=== PATIENT | female | born 1990 ===

== ENCOUNTER 2020-03-14 10:47 | Inpatient (IN) | payer OTHER, SELFPAY ==
[2020-03-14 10:59] VITALS: BP 136/83; PULSE 114; RESP 24; O2SAT 99; BMI 42.9
--- NOTE | 2020-03-14 11:01 | ED.URI ---
HPI - URI/Sore Throat General Chief Complaint: General Medical Stated Complaint: difficulty breathing, chest pain Time Seen by Provider: 03/14/20 11:01 Source: patient Mode of arrival: ambulatory Limitations: no limitations History of Present Illness HPI Narrative: 29 yo female with hx of CMT comes in with productive blood tinged sputum, cough, increased dyspnea, fevers at home - has trach and hx of CMT, has PPM hypoxia and always on O2 - felt all of her issues are related to CMT sees a receiving associate, also has chronic tachycardia MD elicited complaint: fever, cough and other (dyspnea) Pertinent past history: other (bronchitis, tracheitis (trach since age 16) ) Onset (ago): day(s) (2) Consistency: constant Severity: moderate Able to tolerate fluids by mouth: Yes Exacerbating factors: exertion Relieving factors: nothing Associated symptoms: fever, chills, cough and shortness of breath Related Data Allergies Allergy/AdvReac Type Severity Reaction Status Date / Time prednisone [PREDNISONE] Allergy Unknown UNKNOWN Unverified 01/18/20 19:46 Review of Systems Review of Systems: Constitutional : pos Fever, pos Chills ENT/Mouth : No sore throat, No Rhinorrhea, No Swallowing Difficulty Eyes: No Eye Pain, No Swelling, No Redness Cardiovascular : No Chest Pain, positive SOB, No Orthopnea, no Edema Respiratory : pos Cough, pos Sputum, No Wheezing, positive dyspnea Gastrointestinal : No Nausea, No Vomiting, No Diarrhea, No abdominal Pain, No Hematochezia, No Melena Genitourinary : No Dysuria, No Urinary Frequency, No Hematuria Musculoskeletal : No joint pain, No Myalgias Skin : No Skin Lesions, No rash Neuro : No Weakness, No Numbness, No Dizziness, No Headache Psych : No Anxiety/Panic, No Depression Heme/Lymph: No Bruising, No Lymphadenopathy Endocrine : No Polyuria, No Polydipsia All other systems reviewed and are negative [facility] Past Medical History Attestation statement: The following information was validated with the patient. 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 Oriented X3. No acute distress. Eyes: Pupils equal, round and reactive to light. ENT: Pharynx normal. Tach in place Neck: Normal inspection. Neck supple. CVS: tachycardic heart rate and rhythm. Pulses normal. Respiratory: No respiratory distress. Breath sounds mild rhonchi upper, L base diminished Abdomen: Soft and nontender. Skin: Skin warm and dry. Normal skin color. Normal skin turgor. Extremities: No lower extremity edema. No calf ttp has orthotic devices in place Neuro: Oriented X 3. No motor deficit. No sensory deficit. Course Course Course Narrative: unfortunately the patient is COVID positive, she has increased her O2 to 4L NC I have notified her News Intern about findings - she is obviously high risk for deteriorating given rapidity of her illness, increased O2 demands and her risk factors will admit for observation MDM - URI/Sore Throat MDM Narrative Medical decision making narrative: 29 yo female with CMT who has a trach, O2 dependent, hx of bronchitis and tracheitis here with fevers, increased dyspnea, blood tinged sputum - will obtain labs, cultures, ddimer, CTA vs CXR, SARS/COVID/flu swab dispo per results and findings infectious vs PE workup (has has negative PE workup in the past) Lab Data Result diagrams: 03/14/20 11:28 03/14/20 11:28 Labs: Lab Results 03/14/20 03/14/20 03/14/20 Range/Units 11:28 11: 11:28 WBC 2.8 L (4.8-10.8) X10*3/uL RBC 4.46 (4.20-5.50) X10*6/uL Hgb 11.9 L (12.0-16.0) g/dl Hct 37.6 (37-47) % MCV 84.3 (80-98) fL MCH 26.7 L (27.0-33.0) pg MCHC 31.6 (31.0-35.0) g/dl RDW 16.8 H (11.0-16.0) % Plt Count 152 L (160-400) X10*3/uL MPV 11.0 (9.4-12.3) fL Immature Gran % (Auto) 0.0 (0.0-0.4) % Neut % (Auto) 68.9 (45-73) % Lymph % (Auto) 18.8 L (20-40) % Daniels % (Auto) 11.9 H (2-11) % Eos % (Auto) 0.0 (0-4) % Baso % (Auto) 0.4 (0-2) % Lymph # (Auto) 0.5 L (1.2-4.9) X10*3/uL Daniels # (Auto) 0.3 (0.1-1.2) X10*3/uL Eos # (Auto) 0.0 (0.0-0.4) X10*3/uL Baso # (Auto) 0.0 (0.0-0.2) X10*3/uL Abs Immat Gran (auto) 0.00 (0.00-0.03) X10*3/uL Absolute Neuts (auto) 1.9 L (2.0-8.3) X10*3/uL Absolute Nucleated RBC 0.000 (0.0-0.012) X10*3/uL Nucleated RBC % (auto) 0.0 (0.0-0.2) /100WBC Smear Tech's Comments VERIFIED D-Dimer 289 NG/ML Sodium 136 (135-145) mmol/L Potassium 3.8 (3.3-5.1) mmol/l Chloride 101 (96-108) mmol/L Carbon Dioxide 30 H (22-29) mmol/L Anion Gap 9 L (12-20) BUN 7 L (9-16) mg/dL Creatinine 0.54 (0.5-1.4) mg/dL Estim Creat Clear Calc 191.4 Estimated GFR > 60 Random Glucose 121 H (60-115) mg/dL Lactic Acid (0.5-2.0) mmol/L Calcium 8.4 (8.4-10.2) mg/dL Magnesium 1.5 L (1.6-2.6) mg/dL Total Bilirubin 0.2 (0.0-1.0) mg/dL Direct Bilirubin < 0.2 (0.0-0.5) mg/dL AST 25 (5-31) U/L ALT 18 (0-31) U/L Alkaline Phosphatase 72 (39-117) U/L Lactate Dehydrogenase 171 (122-220) U/L Troponin I High Sens (<3.5-17.0) ng/L Total Protein 7.1 (6.5-8.0) g/dL Albumin 4.0 (3.5-5.0) g/dL Coronavirus (PCR) (Negative) Influenza Type A (PCR) (Negative) Influenza Type B (PCR) (Negative) RSV RNA Qual (PCR) (Negative) 03/14/20 03/14/20 03/14/20 Range/Units 11:28 11:28 11:28 WBC (4.8-10.8) X10*3/uL RBC (4.20-5.50) X10*6/uL Hgb (12.0-16.0) g/dl Hct (37-47) % MCV (80-98) fL MCH (27.0-33.0) pg MCHC (31.0-35.0) g/dl RDW (11.0-16.0) % Plt Count (160-400) X10*3/uL MPV (9.4-12.3) fL Immature Gran % (Auto) (0.0-0.4) % Neut % (Auto) (45-73) % Lymph % (Auto) (20-40) % Daniels % (Auto) (2-11) % Eos % (Auto) (0-4) % Baso % (Auto) (0-2) % Lymph # (Auto) (1.2-4.9) X10*3/uL Daniels # (Auto) (0.1-1.2) X10*3/uL Eos # (Auto) (0.0-0.4) X10*3/uL Baso # (Auto) (0.0-0.2) X10*3/uL Abs Immat Gran (auto) (0.00-0.03) X10*3/uL Absolute Neuts (auto) (2.0-8.3) X10*3/uL Absolute Nucleated RBC (0.0-0.012) X10*3/uL Nucleated RBC % (auto) (0.0-0.2) /100WBC Smear Tech's Comments D-Dimer NG/ML Sodium (135-145) mmol/L Potassium (3.3-5.1) mmol/l Chloride (96-108) mmol/L Carbon Dioxide (22-29) mmol/L Anion Gap (12-20) BUN (9-16) mg/dL Creatinine (0.5-1.4) mg/dL Estim Creat Clear Calc Estimated GFR Random Glucose (60-115) mg/dL Lactic Acid 0.7 (0.5-2.0) mmol/L Calcium (8.4-10.2) mg/dL Magnesium (1.6-2.6) mg/dL Total Bilirubin (0.0-1.0) mg/dL Direct Bilirubin (0.0-0.5) mg/dL AST (5-31) U/L ALT (0-31) U/L Alkaline Phosphatase (39-117) U/L Lactate Dehydrogenase (122-220) U/L Troponin I High Sens < 3.5 (<3.5-17.0) ng/L Total Protein (6.5-8.0) g/dL Albumin (3.5-5.0) g/dL Coronavirus (PCR) POSITIVE A (Negative) Influenza Type A (PCR) NEGATIVE (Negative) Influenza Type B (PCR) NEGATIVE (Negative) RSV RNA Qual (PCR) NEGATIVE (Negative) ECG Data Attestation: I personally reviewed and interpreted this ECG as follows: ECG interpretation date: 03/14/20 ECG interpretation time: 11:21 Interpretation: Rate: 111 Rhythm: sinus tachycardia Ogden:normal Normal P waves. Normal MEERA. Normal QRS complex. ST T wave : nonspecific qTC: normal prior studies: no acute ischemia The study has been interpreted contemporaneously by me. . Discharge Plan Discharge Clinical Impression: COVID-19, Pneumonia, viral Patient Disposition: Admitted As Inpatient
--- NOTE | 2020-03-14 11:09 | ECG_ITS ---
Test Reason : SOB Blood Pressure : / mmHG Vent. Rate : 113 BPM Atrial Rate : 113 BPM P-R Int : 148 ms QRS Dur : 100 ms QT Int : 328 ms P-R-T Axes : 031 007 -11 degrees QTc Int : 449 ms Sinus tachycardia Nonspecific T wave abnormality Abnormal ECG When compared with ECG of 20-MAR-2019 13:25, Nonspecific T wave abnormality now evident in Lateral leads Referred By: Monica Zendejas Electronically Signed By:ESTRADA OLMEDO MD
[2020-03-14 11:10] VITALS: BP 136/83; PULSE 114; RESP 24; TEMP 37.9; O2SAT 99
[2020-03-14 11:41] LABS: Basophils Percent Auto 0.4 % (0-2); Hematocrit 37.6 % (37-47); Hemoglobin 11.9 g/dl (12.0-16.0); Lymphocytes Absolute Auto 0.5 X10*3/uL (1.2-4.9); Lymphocytes Percent Auto 18.8 % (20-40); MANUAL DIFF FLAG SCAN; Mean Corpuscular HGB Conc 31.6 g/dl (31.0-35.0); Mean Corpuscular Hemoglobin 26.7 pg (27.0-33.0); Mean Corpuscular Volume 84.3 fL (80-98); Monocytes Absolute Auto 0.3 X10*3/uL (0.1-1.2); Monocytes Percent Auto 11.9 % (2-11); Neutrophils Absolute Auto 1.9 X10*3/uL (2.0-8.3); Neutrophils Percent Auto 68.9 % (45-73); Platelet Count 152 X10*3/uL (160-400); Red Blood Count 4.46 X10*6/uL (4.20-5.50); Red Cell Distribution Width 16.8 % (11.0-16.0); SCAN SMEAR FLAG 1; White Blood Count 2.8 X10*3/uL (4.8-10.8)
[2020-03-14] MEDS: Acetaminophen 325 MG TABLET 650 MG PO (11:52)
[2020-03-14 11:53] LABS: D Dimer 289 NG/ML
--- NOTE | 2020-03-14 11:59 | XR_ITS ---
EXAMINATION: XR CHEST CLINICAL INFORMATION: Cough, dyspnea COMPARISON: March 20, 2019 TECHNIQUE: AP portable view of the chest was obtained. FINDINGS: Tracheostomy tube in place. There are regions of airspace disease seen within the lung bases bilaterally. No pneumothorax or significant pleural effusion. Heart upper limits of normal in size. No evidence of pulmonary edema. XR/XR chest 1V IMPRESSION: Bibasilar airspace disease.
[2020-03-14 12:05] LABS: Lactic Acid 0.7 mmol/L (0.5-2.0)
[2020-03-14 12:17] LABS: Influenza A PCR NEGATIVE (Negative); Influenza B PCR NEGATIVE (Negative); Resp Syncy Virus RNA Qual PCR NEGATIVE (Negative); SARS COV2 PCR INHOUSE POSITIVE (Negative)
[2020-03-14 12:18] LABS: Alanine Aminotransferase 18 U/L (0-31); Alkaline Phosphatase 72 U/L (39-117); Anion Gap 9 (12-20); Aspartate Amino Transferase 25 U/L (5-31); Bilirubin Direct < 0.2 mg/dL (0.0-0.5); Bilirubin Total 0.2 mg/dL (0.0-1.0); Blood Urea Nitrogen 7 mg/dL (9-16); Calcium 8.4 mg/dL (8.4-10.2); Carbon Dioxide 30 mmol/L (22-29); Chloride 101 mmol/L (96-108); Creatinine Clr Calc Pharmacy 191.4; Estimated Glomerular Filt Rate > 60; Glucose Random 121 mg/dL (60-115); Lactate Dehydrogenase 171 U/L (122-220); Magnesium 1.5 mg/dL (1.6-2.6); Potassium 3.8 mmol/l (3.3-5.1); Sodium 136 mmol/L (135-145); Total Protein 7.1 g/dL (6.5-8.0); Troponin-I High Sensitivity < 3.5 ng/L (<3.5-17.0)
[2020-03-14 12:49] LABS: SLIDE REVIEW VERIFIED
[2020-03-14] MEDS: dexAMETHasone 6 MG TABLET PO (13:21)
[2020-03-14] MEDS: cefTRIAXone sodium 1 GM in 0.9 % Sodium Chloride 50 ML IV (13:21)
[2020-03-14] MEDS: Azithromycin 500 MG TABLET PO (13:21)
[2020-03-14 13:33] VITALS: BP 108/66; PULSE 110; RESP 26; TEMP 37.2; O2SAT 97
[2020-03-14 14:21] LABS: Ferritin 31 ng/mL (10-122)
[2020-03-14 14:26] LABS: Procalcitonin 0.11 ng/mL
--- NOTE | 2020-03-14 15:13 | HP_ITS ---
DATE OF SERVICE: 03/14/2020 CHIEF COMPLAINT: Shortness of breath. PRIMARY LPN: Rashaun Irwin MD HISTORY OF PRESENTING ILLNESS: This is a 29-year-old female patient with past medical history significant for Luyldpa-Wkzqd-Pmvrh disease since childhood, 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 The patient produces clear to light yellow colored mucus, but she noted it changed color and also she felt cold, chilly, and had a fever of T-max 100.7. She denies any nausea, vomiting, diarrhea. She denies any sick contacts. She denies any recent travel. She has also been feeling tired, weak, and mostly in bed in last 24 to 48 hours. In the emergency room, the patient noted to have a blood sugar of 121, magnesium 1.5, otherwise her electrolytes are stable. She has mild leukopenia and her COVID test came back positive. The patient treated in the ER with dexamethasone, ceftriaxone, and azithromycin, and the patient is now being admitted to [facility] due to sepsis with tachypnea, tachycardia related to COVID-19 pneumonia. PAST MEDICAL HISTORY: Significant for Gcbuaue-Eanin-Vjixe disease, is status post tracheostomy 13 years ago, currently on 2 L of oxygen. The patient is status post section. Otherwise, she has no other medical issues including no history of asthma, no history of diabetes. SOCIAL HISTORY: The patient lives with her significant other and her 5-year-old baby. She ambulates and has bilateral leg braces for ambulation. She denies history of smoking, alcohol abuse, or illicit drug use. FAMILY HISTORY: She is not aware of her father's medical history. Her mother has pseudotumor cerebri and there is a history of heart issues on mother side of the family. The patient not aware of the details. 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 CVS: She denies any chest pain. RESPIRATORY: She denies any cough, but has chronic sputum production, clear to yellow-colored, now changed to some bloody mucus. : She denies any urinary symptoms of urgency or frequency. SKIN: She denies any rashes. NEURO: She denies any new weakness. Rest of all other systems are reviewed and are negative. PHYSICAL EXAMINATION: GENERAL: The patient is sitting comfortably in bed. VITAL SIGNS: Her blood pressure is 108/66, her pulse is 114, respiratory rate is 26, O2 saturation is 97% on 3 L of nasal cannula, temp is 98.9. On arrival to the ER, temp was 100.2. HEENT: Pupils equal, round, and reactive to light and accommodation. NECK: Supple. No JVD. No lymphadenopathy. LUNGS: She has bilateral coarse breath sound. HEART: Tachy, irregular. ABDOMEN: Obese, soft, nontender. Bowel sounds are audible. EXTREMITIES: Without clubbing, cyanosis, or edema. SKIN: Without any rashes. NEURO: The patient is awake, alert x3. Due to tachypnea and tachycardia, the patient was not ambulated. The patient's face is symmetrical. Speech is clear. LABORATORY DATA: WBC count is 2.8, hemoglobin 11.9, hematocrit 37.6 with a platelet of 152, 000. D-dimer is 289. Sodium 136, potassium 3.8, chloride 101, BUN 7, creatinine of 0.54, random blood sugar 121, magnesium low at 1.5. Normal LFTs, alkaline phosphatase, LDH. Normal troponin, total protein. Procalcitonin is pending. Castellanos PCR test is positive. Influenza and RSV are negative. EKG showed sinus tachycardia and nonspecific T-wave abnormality. Chest x-ray showed bibasilar airspace disease. ASSESSMENT AND PLAN: This is a 29-year-old female patient with past medical history significant for Crnwjwv-Nszwr-Fprzp disease, is status post tracheostomy with chronic respiratory failure on 2 L of oxygen, presented to [facility] with 2 days of generalized weakness, headache, chest congestion, and fever. The patient diagnosed to have COVID-19 pneumonia/sepsis. 1. Sepsis due to COVID-19 pneumonia. The patient will be admitted to isolation. She will be treated with IV dexamethasone, IV antibiotics, and supportive care. Continue oxygen support. We will obtain ID consultation. If the patient's oxygen requirement increases, she will be treated with Remdesivir and will consider convalescent plasma. 2. Hypomagnesemia. The patient will be treated with magnesium supplements. 3. Deep vein thrombosis prophylaxis. The patient will be placed on Lovenox. 4. Code status. The patient is a full code. 5. Acute on chronic hypoxic respiratory failure. The patient will be continued on oxygen 4 L, will gradually wean oxygen. Continue supportive care and treat underlying infection. MD FLORIN Cordero/RAULITO / [phone]
[2020-03-14 15:30] VITALS: BP 110/72; PULSE 100; RESP 19; TEMP 37.3; O2SAT 96
[2020-03-14] MEDS: Enoxaparin Sodium 40 MG/0.4 ML SYRINGE SUBCUT (16:16)
[2020-03-14] MEDS: 0.9 % Sodium Chloride Flush 3 ML SYRINGE IVFLUSH ×2 (16:16→23:46)
[2020-03-14 19:27] VITALS: BP 119/74; PULSE 93; RESP 19; TEMP 35.9; O2SAT 96
[2020-03-14 23:38] VITALS: BP 110/58; PULSE 91; RESP 19; TEMP 36.8; O2SAT 95
[2020-03-15 03:45] VITALS: BP 113/58; PULSE 86; RESP 18; TEMP 36.3; O2SAT 95
[2020-03-15 06:59] LABS: Basophils Percent Auto 0.4 % (0-2); Hematocrit 36.7 % (37-47); Hemoglobin 11.4 g/dl (12.0-16.0); Lymphocytes Absolute Auto 0.9 X10*3/uL (1.2-4.9); Lymphocytes Percent Auto 36.9 % (20-40); MANUAL DIFF FLAG SCAN; Mean Corpuscular HGB Conc 31.1 g/dl (31.0-35.0); Mean Corpuscular Hemoglobin 26.3 pg (27.0-33.0); Mean Corpuscular Volume 84.6 fL (80-98); Mean Platelet Volume 11.2 fL (9.4-12.3); Monocytes Absolute Auto 0.4 X10*3/uL (0.1-1.2); Monocytes Percent Auto 17.2 % (2-11); Neutrophils Absolute Auto 1.1 X10*3/uL (2.0-8.3); Neutrophils Percent Auto 45.5 % (45-73); Platelet Count 144 X10*3/uL (160-400); Red Blood Count 4.34 X10*6/uL (4.20-5.50); Red Cell Distribution Width 16.8 % (11.0-16.0); SCAN SMEAR FLAG 1
[2020-03-15 07:10] LABS: Anion Gap 12 (12-20); Blood Urea Nitrogen 10 mg/dL (9-16); Calcium 8.2 mg/dL (8.4-10.2); Carbon Dioxide 26 mmol/L (22-29); Chloride 103 mmol/L (96-108); Creatinine Clr Calc Pharmacy 202.6; Estimated Glomerular Filt Rate > 60; Glucose Random 89 mg/dL (60-115); Potassium 4.2 mmol/l (3.3-5.1); Sodium 137 mmol/L (135-145)
[2020-03-15 07:23] LABS: White Blood Count 2.4 X10*3/uL (4.8-10.8)
[2020-03-15 07:51] LABS: SLIDE REVIEW VERIFIED
[2020-03-15 08:00] VITALS: BP 102/63; PULSE 82; RESP 18; TEMP 36.3; O2SAT 95
--- NOTE | 2020-03-15 09:15 | MHC.CM.PN ---
IMM 03/15/20 Female 29 DX Covid + PMH [place] Shantell-tooth. She has a trach 2Lo2 baseline. [employer] for O2, [employer] for Supplies. She ambulates with the asst from leg braces. She has 5 month old baby at home, with . Pt has a HCP. A copy has been requested. DP Home with services if needed. She has had home care before. She does not have an agency preference. A list of providers of home care services; Which are contracted with [facility] has been provided. CM will follow for change in DC needs.
[2020-03-15] MEDS: dexAMETHasone sod phosphate 4 MG/ML VIAL 6 MG IVPUSH (09:47)
[2020-03-15] MEDS: Magnesium Sulfate/H2O 2 GM/50 ML PIGGYBACK IV (09:47)
[2020-03-15] MEDS: 0.9 % Sodium Chloride Flush 3 ML SYRINGE IVFLUSH ×2 (09:48→14:15)
--- NOTE | 2020-03-15 11:13 | HO.PM.IMPN ---
Subjective Subjective Date of Service: 03/15/20 Interval History: patient feels better this a.m. denies shortness of breath has some blood-tinged sputum, no other acute issues overnight continue to require 4-5 L of oxygen with finger oximetry 95% no fever no chills. Review of Systems General no headache , no dizziness, no fever chills. CVS no chest pain, no palpitation. Respiratory no shortness of breath. Gastrointestinal no nausea ,no vomiting, no abdominal pain Physical Exam Vital Signs: Vital Signs: Last Vital Signs Temp 97.3 F 03/15/20 08:00 Pulse 82 03/15/20 08:00 Resp 18 03/15/20 08:00 BP 102/63 03/15/20 08:00 Pulse Ox 95 03/15/20 08:00 Body Mass Index 42.9 General patient resting comfortably in no acute distress. Neck supple trach in place CVS regular rate rhythm, Respiratory coarse, diminished breath sound, no respiratory distress, no wheeze Gastrointestinal abdomen soft, nontender, bowel sounds audible, no guarding , no rigidity. Extremities no clubbing cyanosis or edema. Neuro nonfocal. Skin no rash Objective Data Current Medications Generic Name Dose Route Start Last Admin Trade Name Freq PRN Reason Stop Dose Admin Acetaminophen 650 mg 03/14/20 14:03 Acetaminophen 325 Mg Tablet PO Q6H PRN PAIN Albuterol Sulfate 2 puff 03/14/20 20:10 Albuterol Sulfate 90 Mcg 8 Gm Inhaler INHALE RQ4H PRN Wheezing Albuterol/Ipratropium 3 ml 03/14/20 19:50 Albuterol/Iprat 2.5/0.5mg 3 Ml Ampul.Neb INHALE RQ4H PRN Wheezing Dexamethasone Sodium Phosphate 6 mg 03/15/20 09:00 03/15/20 09:47 Dexamethasone Sod Phosphate 4 Mg/Ml Vial IVPUSH 6 mg DAILY RAJNI Administration Enoxaparin Sodium 40 mg 03/14/20 16:00 03/14/20 16:16 Enoxaparin Sodium 40 Mg/0.4 Ml Syringe SUBCUT 40 mg Q24H RAJNI Administration Guaifenesin/Dextromethorphan 10 ml 03/15/20 08:13 Guaifenesin Dm 200/20/10 Ml 10 Ml Syrup PO Q6H PRN Cough Azithromycin 500 mg/ Sodium 250 mls @ 125 mls/hr 03/15/20 13:00 Chloride IV DAILY@1300 [facility] Ceftriaxone Sodium 1 gm/ 50 mls @ 100 mls/hr 03/15/20 13:00 Sodium Chloride IV Q24H [facility] Ondansetron HCl 4 mg 03/14/20 14:03 Ondansetron Hcl 4 Mg/2 Ml Vial IVPUSH Q8H PRN Nausea Pharmacy Consult 1 each 03/14/20 12:34 Consult Rx Perform Med Rec MISCELLANE ONCE PRN Consult order Sodium Chloride 3 ml 03/14/20 16:00 03/15/20 09:48 0.9 % Sodium Chloride Flush 3 Ml Syringe IVFLUSH 3 ml QSHIFT [facility] Administration Labs CBC & Chem 7: 03/15/20 06:01 03/15/20 06:01 Assessment and Plan (1) COVID-19: Status: Acute (2) Pneumonia, viral: Status: Acute (3) Acute and chronic respiratory failure with hypoxia: Status: Acute (4) Low magnesium level: Status: Acute Assessment and Plan: 29-year-old female patient with past medical history significant for Jgfxirf-Uquqz-Qdsnt disease, is status post tracheostomy with chronic respiratory failure on 2 L of oxygen, presented to [facility] with 2 days of generalized weakness, headache, chest congestion, and fever. The patient diagnosed to have COVID-19 pneumonia/sepsis. 1. Sepsis due to COVID-19 pneumonia. continue isolation, IV dexamethasone day 2, on IV azithromycin 500 and IV ceftriaxone 1 g day 2, Continue oxygen support, await ID input, If patient's oxygen requirement increases, will consider Remdesivir/convalescent plasma. sepsis resolved normal heart rate and breathing this morning. persistent leukopenia. 2. Hypomagnesemia. will replaced magnesium and follow labs. 3. Deep vein thrombosis prophylaxis. on Lovenox. 4. Code status. full code. 5. Acute on chronic hypoxic respiratory failure. on 5 L of oxygen Will continue to wean oxygen gradually continue supportive care with cough medication antibiotics and as needed nebulizers 6. Morbid obesity weight reduction recommended counseling done
[2020-03-15 11:39] VITALS: BP 101/58; PULSE 85; RESP 18; TEMP 35.9; O2SAT 95
[2020-03-15 13:20] VITALS: BMI 42.9
[2020-03-15] MEDS: cefTRIAXone sodium 1 GM in 0.9 % Sodium Chloride 50 ML IV (13:30)
--- NOTE | 2020-03-15 13:33 | W.PM.IDCN ---
History of Present Illness Data of Consult Service Date: 03/15/20 Requesting physician: Tomas Charles Primary Care Provider: Jayshree Mishra MD [facility] Reason for consult: shortness of breath She presents to hospital with shortness of breath as well as yellowish sputum production last 2 days She has gone to peoples homes ,mostly relatives but is not aware of specific COVID exposure. She has [place] Shantell Tooth disease and tracheostomy 13 years ago and is on 2liters oxygen Review of Systems Respiratory: Respiratory: Reports change in phlegm color PMFSH Past Medical History Medical History (Updated 03/15/20 @ 13:50 by Monika Choudhury MD) delivery due to maternal disorder, [facility] [place] To[facility] muscular atrophy Pneumonia Tracheostomy in place Social History Social History Household Members: Spouse and Children Housing: House Do you presently have visiting nurse or other home services: No Alcohol intake: never Smoking Status: Never smoker Use of substances other than those prescribed or required for medical reasons: No Currently Displaying Signs/Symptoms of Drug Intoxication Withdrawal: No Have you been hit, kicked, punched, or otherwise hurt by someone within the past year? If so, by whom?: No Do you feel safe in your current relationship?: Yes Is there a partner from a previous relationship who is making you feel unsafe now?: No Are you made to feel afraid or neglected: No Spiritual Healthcare Practices: none Synagogue Healthcare Practices: none Cultural Healthcare Practices: none Advance Directives: No Advance Directives Information Provided: No Do you have thoughts of harming others: None Do you have a plan to hurt others: No Plan Recently lost weight without trying: No service: No Current occupational status: disabled Meds Allergies Allergy/AdvReac Type Severity Reaction Status Date / Time prednisone [PREDNISONE] Allergy Unknown UNKNOWN Unverified 01/18/20 19:46 Home Medications Medication Instructions Recorded Confirmed Type No Known Home Meds 03/14/20 03/14/20 History Physical Exam Vital Signs: Vital Signs: Last Vital Signs Temp 96.7 F L 03/15/20 11:39 Pulse 85 03/15/20 11:39 Resp 18 03/15/20 11:39 BP 101/58 L 03/15/20 11:39 Pulse Ox 95 03/15/20 11:39 Body Mass Index 42.9 Const: General: no acute distress Orientation/consciousness: oriented to person, oriented to place and oriented to time HENMT: Head: Yes normal to inspection Ears: hearing grossly normal bilaterally Mouth: Normal oral and palatal mucosa present Eyes: General: appearance normal, both eyes and all related structures Resp: Effort & Inspection: normal respiratory effort and able to speak in complete sentences Cardio: Rate: regular rate Rhythm: regular rhythm GI: Inspection: Yes normal to inspection Skin: General skin exam: no rashes or lesions noted Neuro: General: oriented to person, oriented to place and oriented to time Assessment and Plan (1) COVID-19: Problem details: She has minimally elevated oxygen demands She has COVID and some pneumonia from it Status: Acute Oxygen supplementation Dexamethasone 6 mg IV daily,can change to 8 mg po on discharge 10 day total Convalescent plasma if worsens (2) Pneumonia: Problem details: There may be possibly bacterial pneumonia with hemoptysis and change in sputum in patient with trach Status: Inactive Continue CTX and Zmax Check procalcitonin If procalcitonin unremarkable consider stop antibiotics Results Labs CBC & Chem 7: 03/15/20 06:01 03/15/20 06:01 Labs: Short CBC 03/15/20 Range/Units 06:01 WBC 2.4 L (4.8-10.8) X10*3/uL Hgb 11.4 L (12.0-16.0) g/dl Hct 36.7 L (37-47) % Plt Count 144 L (160-400) X10*3/uL BMP 03/15/20 06:01 Sodium 137 Potassium 4.2 Chloride 103 Carbon Dioxide 26 BUN 10 Creatinine 0.51 Calcium 8.2 L
[2020-03-15] MEDS: Azithromycin 500 MG in 0.9 % Sodium Chloride 250 ML 125 MG IV (14:12)
[2020-03-15 15:16] VITALS: BP 108/52; PULSE 86; RESP 18; TEMP 36.1; O2SAT 95
[2020-03-15 15:35] LABS: Procalcitonin < 0.02 ng/mL
[2020-03-15] MEDS: Enoxaparin Sodium 40 MG/0.4 ML SYRINGE SUBCUT (17:09)
[2020-03-15 19:02] VITALS: BP 103/51; PULSE 77; RESP 18; TEMP 36.9; O2SAT 94
[2020-03-16] VITALS: BP 100/53; PULSE 83; RESP 20; TEMP 36.7; O2SAT 94
[2020-03-16] MEDS: 0.9 % Sodium Chloride Flush 3 ML SYRINGE IVFLUSH ×2 (01:21→08:52)
[2020-03-16 04:00] VITALS: BP 129/64; PULSE 95; RESP 20; TEMP 36.7; O2SAT 93
[2020-03-16 07:03] LABS: MANUAL DIFF FLAG NO
[2020-03-16 07:19] LABS: Basophils Percent Auto 0.4 % (0-2); Hematocrit 34.7 % (37-47); Hemoglobin 10.8 g/dl (12.0-16.0); Imm Gran Abs Auto 0.01 X10*3/uL (0.00-0.03); Imm Gran Pct Auto 0.2 % (0.0-0.4); Lymphocytes Absolute Auto 1.2 X10*3/uL (1.2-4.9); Mean Corpuscular HGB Conc 31.1 g/dl (31.0-35.0); Mean Corpuscular Volume 83.6 fL (80-98); Mean Platelet Volume 11.1 fL (9.4-12.3); Monocytes Absolute Auto 0.5 X10*3/uL (0.1-1.2); Monocytes Percent Auto 8.2 % (2-11); Neutrophils Absolute Auto 3.8 X10*3/uL (2.0-8.3); Neutrophils Percent Auto 69.2 % (45-73); Platelet Count 150 X10*3/uL (160-400); Red Blood Count 4.15 X10*6/uL (4.20-5.50); Red Cell Distribution Width 16.6 % (11.0-16.0); White Blood Count 5.5 X10*3/uL (4.8-10.8)
[2020-03-16 07:42] LABS: C Reactive Protein 0.89 mg/dL (< or = 0.50)
[2020-03-16 08:00] VITALS: BP 110/52; PULSE 105; RESP 18; TEMP 36.8; O2SAT 91
[2020-03-16] MEDS: dexAMETHasone sod phosphate 4 MG/ML VIAL 6 MG IVPUSH (08:55)
[2020-03-16] MEDS: Acetaminophen 325 MG TABLET 650 MG PO (09:02)
[2020-03-16] MEDS: ondansetron HCL 4 MG/2 ML VIAL IVPUSH (09:02)
--- NOTE | 2020-03-16 10:30 | PM.DS ---
DS: Providers Provider Date of admission: 03/14/20 13:59 Primary care physician: Jayshree Mishra MD Consults: 03/14/20 15:32 Consult to Infectious Diseases Routine Consulting Provider: Monika Choudhury Reason for consultation: COVID 19 Has provider been notified: No DS: Diagnosis Discharge Diagnosis (1) COVID-19: Status: Acute Problem details: She has minimally elevated oxygen demands She has COVID and some pneumonia from it (2) Pneumonia: Status: Inactive Problem details: There may be possibly bacterial pneumonia with hemoptysis and change in sputum in patient with trach DS: Medications Discharge Medications Home Medications: Home Medications Medication Instructions Recorded Confirmed No Known Home Meds 03/14/20 03/14/20 DS: Summary Hospital Course Hospital Course: history of presenting illness 29-year-old female patient with past medical history significant for Iydrldd-Ttjln-Nnyiy disease since childhood, 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 The patient produces clear to light yellow colored mucus, but she noted it changed color and also she felt cold, chilly, and had a fever of T-max 100.7. She denies any nausea, vomiting, diarrhea. She denies any sick contacts. She denies any recent travel. She has also been feeling tired, weak, and mostly in bed in last 24 to 48 hours. In the emergency room, the patient noted to have a blood sugar of 121, magnesium 1.5, otherwise her electrolytes are stable. She has mild leukopenia and her COVID test came back positive. The patient treated in the ER with dexamethasone, ceftriaxone, and azithromycin, and the patient is now being admitted to [facility] due to sepsis with tachypnea, tachycardia related to COVID-19 pneumonia. 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 The patient is status post section. Otherwise, she has no other medical issues including no history of asthma, no history of diabetes. hospital course 29-year-old female patient with past medical history significant for Aewkxvn-Cgspq-Hgjlv disease, is status post tracheostomy with chronic respiratory failure on 2 L of oxygen, presented to [facility] with 2 days of generalized weakness, headache, chest congestion, and fever. The patient diagnosed to have COVID-19 pneumonia/sepsis. 1. Sepsis due to COVID-19 pneumonia. sepsis resolved, patient treated with IV dexamethasone , IV azithromycin 500 and IV ceftriaxone 1 g , patient generally is feeling better currently her oxygen requirement has improved she is on 3 L status close to her baseline therefore patient is being discharged home on dexamethasone 8 mg by mouth daily, and by mouth Ceftin and azithromycin for concern of possible bacterial pneumonia due to change in color of sputum, patient has been recommended to drink plenty of fluid rest and continue home oxygen, patient WBC count is normalized. patient was evaluated by Dr. Trang Choudhury due to stable oxygenation did not require any further treatment for COVID-19 infection. 2. Hypomagnesemia. Replace 3. Acute on chronic hypoxic respiratory failure. resolved patient is now on 3 L of home oxygen, that she uses at home, continue trach care. 4. Morbid obesity weight reduction recommended , counseling done. Time Spent with Patient Time attestation: Total time spent providing and/or coordinating discharge services: Physical Exam Vital Signs: Vital Signs: Last Vital Signs Temp 98.3 F 03/16/20 08:00 Pulse 105 H 03/16/20 08:00 Resp 18 03/16/20 08:00 BP 110/52 L 03/16/20 08:00 Pulse Ox 91 L 03/16/20 08:00 Body Mass Index 42.9 General patient resting comfortably in no acute distress. Neck Trach collar in place. CVS regular rate rhythm, Respiratory lungs clear to auscultation, no respiratory distress Gastrointestinal abdomen soft, nontender, bowel sounds audible. Extremities no clubbing cyanosis or edema. Skin no rash DS: Data Data Completed and Pending Labs on day of discharge: 03/14/20 11:09 ECG 12 lead EKG Stat EKG Documentation DIRECTED 03/14/20 11:20 Acetaminophen [Tylenol] 650 mg PO ONCE ONE 03/14/20 11:28 Basic Metabolic Panel Stat Complete Blood Count Auto Diff Stat D Dimer Stat Ferritin Stat Lactate Dehydrogenase Stat Lactic Acid Stat Liver Panel Stat Magnesium Stat Procalcitonin Stat SARS-CoV2/FLU/RSV Stat SLIDE REVIEW Stat Troponin-I High Sensitivity Stat 03/14/20 11:59 XR chest 1V Stat 03/14/20 12:25 Azithromycin [Zithromax] 500 mg PO ONCE ONE cefTRIAXone sodium [Rocephin] 1 gm 0.9 % Sodium Chloride [Ns] 50 ml IV ONCE dexAMETHasone [Decadron] 6 mg PO ONCE ONE 03/14/20 13:06 Add Laboratory Test Stat 03/14/20 13:18 cefTRIAXone sodium [Rocephin] 1 gm .ROUTE .[facility] ONE 03/14/20 13:50 Transfer Order Routine 03/15/20 06:01 Basic Metabolic Panel Routine Complete Blood Count Auto Diff Routine SLIDE REVIEW Routine 03/15/20 08:11 Magnesium Sulfate/H2O 2 gm in 50 ml IV ONCE 03/15/20 13:21 cefTRIAXone sodium [Rocephin] 1 gm .ROUTE .[facility] ONE 03/15/20 14:06 Azithromycin [Zithromax] 500 mg IV .[facility] ONE 03/15/20 14:29 Procalcitonin Routine 03/16/20 06:40 C Reactive Protein Routine Complete Blood Count Auto Diff Routine Laboratory Last Values WBC 5.5 X10*3/uL (4.8-10.8) 03/16/20 06:40 RBC 4.15 X10*6/uL (4.20-5.50) L 03/16/20 06:40 Hgb 10.8 g/dl (12.0-16.0) L 03/16/20 06:40 Hct 34.7 % (37-47) L 03/16/20 06:40 MCV 83.6 fL (80-98) 03/16/20 06:40 MCH 26.0 pg (27.0-33.0) L 03/16/20 06:40 MCHC 31.1 g/dl (31.0-35.0) 03/16/20 06:40 RDW 16.6 % (11.0-16.0) H 03/16/20 06:40 Plt Count 150 X10*3/uL (160-400) L 03/16/20 06:40 MPV 11.1 fL (9.4-12.3) 03/16/20 06:40 Immature Gran % (Auto) 0.2 % (0.0-0.4) 03/16/20 06:40 Neut % (Auto) 69.2 % (45-73) 03/16/20 06:40 Lymph % (Auto) 22.0 % (20-40) 03/16/20 06:40 [place] % (Auto) 8.2 % (2-11) 03/16/20 06:40 Eos % (Auto) 0.0 % (0-4) 03/16/20 06:40 Baso % (Auto) 0.4 % (0-2) 03/16/20 06:40 Lymph # (Auto) 1.2 X10*3/uL (1.2-4.9) 03/16/20 06:40 [place] # (Auto) 0.5 X10*3/uL (0.1-1.2) 03/16/20 06:40 Eos # (Auto) 0.0 X10*3/uL (0.0-0.4) 03/16/20 06:40 Baso # (Auto) 0.0 X10*3/uL (0.0-0.2) 03/16/20 06:40 Abs Immat Gran (auto) 0.01 X10*3/uL (0.00-0.03) 03/16/20 06:40 Absolute Neuts (auto) 3.8 X10*3/uL (2.0-8.3) 03/16/20 06:40 Absolute Nucleated RBC 0.000 X10*3/uL (0.0-0.012) 03/16/20 06:40 Nucleated RBC % (auto) 0.0 /100WBC (0.0-0.2) 03/16/20 06:40 Smear Tech's Comments VERIFIED 03/15/20 06:01 Smear Path Review SEE NOTE 03/15/20 06:01 D-Dimer 289 NG/ML 03/14/20 11:28 Sodium 137 mmol/L (135-145) 03/15/20 06:01 Potassium 4.2 mmol/l (3.3-5.1) 03/15/20 06:01 Chloride 103 mmol/L (96-108) 03/15/20 06:01 Carbon Dioxide 26 mmol/L (22-29) 03/15/20 06:01 Anion Gap 12 (12-20) 03/15/20 06:01 BUN 10 mg/dL (9-16) 03/15/20 06:01 Creatinine 0.51 mg/dL (0.5-1.4) 03/15/20 06:01 Estim Creat Clear Calc 202.6 03/15/20 06:01 Estimated GFR > 60 03/15/20 06:01 Random Glucose 89 mg/dL (60-115) 03/15/20 06:01 Lactic Acid 0.7 mmol/L (0.5-2.0) 03/14/20 11:28 Calcium 8.2 mg/dL (8.4-10.2) L 03/15/20 06:01 Magnesium 1.5 mg/dL (1.6-2.6) L 03/14/20 11:28 Ferritin 31 ng/mL (10-122) 03/14/20 11:28 Total Bilirubin 0.2 mg/dL (0.0-1.0) 03/14/20 11:28 Direct Bilirubin < 0.2 mg/dL (0.0-0.5) 03/14/20 11:28 AST 25 U/L (5-31) 03/14/20 11:28 ALT 18 U/L (0-31) 03/14/20 11:28 Alkaline Phosphatase 72 U/L (39-117) 03/14/20 11:28 Lactate Dehydrogenase 171 U/L (122-220) 03/14/20 11:28 Troponin I High Sens < 3.5 ng/L (<3.5-17.0) 03/14/20 11:28 C-Reactive Protein 0.89 mg/dL (< or = 0.50) H 03/16/20 06:40 Total Protein 7.1 g/dL (6.5-8.0) 03/14/20 11:28 Albumin 4.0 g/dL (3.5-5.0) 03/14/20 11:28 Procalcitonin < 0.02 ng/mL 03/15/20 14:29 Coronavirus (PCR) POSITIVE (Negative) A 03/14/20 11:28 Influenza Type A (PCR) NEGATIVE (Negative) 03/14/20 11:28 Influenza Type B (PCR) NEGATIVE (Negative) 03/14/20 11:28 RSV RNA Qual (PCR) NEGATIVE (Negative) 03/14/20 11:28 Preliminary micro results at discharge 03/14/20 11:32 Blood Culture - Preliminary Blood - Arterial No growth after 24 hours. 03/14/20 11:28 Blood Culture - Preliminary Blood - Arterial No growth after 24 hours. Discharge Plan Discharge Patient Disposition: Home, Self-Care Referrals: Jayshree Mishra MD [Primary Care Provider] - Discharge Medications: New cefuroxime axetil 500 mg Tablet 500 mg PO Q12H Qty: 6 RF: 0 dexamethasone 0.5 mg Tablet 8 mg PO DAILY Qty: 8 RF: 0 azithromycin 500 mg Tablet 500 mg PO Q24H Qty: 3 RF: 0 Discharge Orders: Discharge Order (Routine); Ordered 03/16/20 Ordered By: Tomas Charles Diet: regular diet Activity on Discharge: As tolerated Discharge Date/Time: 03/16/20 14:45 Visit Report Forms: Patient Portal Discharge page Care Plan Goals: Continue home oxygen and trach care Health Concerns: finish course of medications as prescribed, wear mask at home till completely asymptomatic with no fevers,no cough and sputum changed to Baseline color Plan of Treatment: follow-up with primary care physician.
[2020-03-16 11:49] VITALS: BP 119/56; PULSE 91; RESP 18; TEMP 36; O2SAT 94
[2020-03-16] MEDS: Azithromycin 500 MG TABLET PO (11:51)
== END 2020-03-16 14:45 | disposition home or self-care (01) | DRG 871 ==
LOC: HO.ED 13:17 → HO.IMC 14:13
PROVIDERS: Internal Medicine; Admitting Provider Hospitalist; Emergency Provider Emergency Medicine; PCP Internal Medicine; Visit Provider Hospitalist
DX: A41.89 Other specified sepsis (principal); U07.1 COVID-19; J96.21 Acute and chronic respiratory failure with hypoxia; J12.89 Other viral pneumonia; Z68.41 Body mass index [BMI] 40.0-44.9, adult; G60.0 Hereditary motor and sensory neuropathy; E83.42 Hypomagnesemia; Z93.0 Tracheostomy status; E66.01 Morbid (severe) obesity due to excess calories; Z99.81 Dependence on supplemental oxygen; Z79.899 Other long term (current) drug therapy
CPT/HCPCS: 0241U; 36415; 71045; 80048; 80076; 82728; 83605; 83615; 83735; 84145; 84484; 85025; 85060; 85379; 86140; 87040; 93005; 96365; 99285; J0456; J0696; J1100; J1650; J2405; J3475; J8540

== ENCOUNTER → 2020-04-17 20:37 | Outpatient (REF) | payer OTHER, SELFPAY | LOC: HO.SL 20:37 | PROVIDERS: PCP Internal Medicine; Visit Provider Hospitalist | DX: G47.33 Obstructive sleep apnea (adult) (pediatric) (principal) | CPT/HCPCS: 95810 ==

== ENCOUNTER 2020-08-27 14:01 | Outpatient (REF) | payer OTHER, SELFPAY ==
--- NOTE | ~2020-08-27 | XR_ITS ---
EXAMINATION: XR CHEST CLINICAL INFORMATION: Chest pain COMPARISON: Previous chest x-ray most recent March 2020 TECHNIQUE: 2 views of the chest were obtained. FINDINGS: The cardiac silhouette is slightly enlarged but stable. Hilar and mediastinal contours are unremarkable. There is a tracheostomy tube that appears unchanged in position. There is linear scarring or subsegmental atelectasis at the lung bases. The lungs are otherwise clear. There is no pleural effusion or pneumothorax. Bony structures are unremarkable. XR/XR chest 2V IMPRESSION: Linear scarring or subsegmental atelectasis at the lung bases. Slightly enlarged cardiac silhouette similar to previous exams. Satisfactory position of tracheostomy tube.
[2020-08-27 15:19] LABS: MANUAL DIFF FLAG NO
[2020-08-27 15:22] LABS: Basophils Percent Auto 0.4 % (0-2); Eosinophils Percent Auto 0.5 % (0-4); Hematocrit 38.4 % (37-47); Hemoglobin 12.1 g/dl (12.0-16.0); Imm Gran Abs Auto 0.02 X10*3/uL (0.00-0.03); Imm Gran Pct Auto 0.3 % (0.0-0.4); Lymphocytes Absolute Auto 1.7 X10*3/uL (1.2-4.9); Lymphocytes Percent Auto 23.3 % (20-40); Mean Corpuscular HGB Conc 31.5 g/dl (31.0-35.0); Mean Corpuscular Hemoglobin 26.9 pg (27.0-33.0); Mean Corpuscular Volume 85.3 fL (80-98); Mean Platelet Volume 10.3 fL (9.4-12.3); Monocytes Absolute Auto 0.6 X10*3/uL (0.1-1.2); Monocytes Percent Auto 7.7 % (2-11); Neutrophils Percent Auto 67.8 % (45-73); Platelet Count 240 X10*3/uL (160-400); Red Cell Distribution Width 14.6 % (11.0-16.0); White Blood Count 7.3 X10*3/uL (4.8-10.8)
[2020-08-27 15:36] LABS: Anion Gap 12 (12-20); Blood Urea Nitrogen 14 mg/dL (9-16); Calcium 9.3 mg/dL (8.4-10.2); Carbon Dioxide 26 mmol/L (22-29); Chloride 106 mmol/L (96-108); D Dimer 259 NG/ML; Estimated Glomerular Filt Rate > 60; Glucose Random 110 mg/dL (60-115); Sodium 140 mmol/L (135-145)
[2020-08-27 16:13] LABS: Erythrocyte Sedimentation Rate 55 MM/HR (0-20)
[2020-08-28 07:47] LABS: SARS COV2 IgG Positive (Negative)
== END 2020-08-27 14:02 | disposition home or self-care (01) ==
LOC: HO.XRAY 14:01
PROVIDERS: PCP Internal Medicine; Visit Provider Hospitalist
DX: Z20.822 Contact with and (suspected) exposure to COVID-19 (principal); R07.1 Chest pain on breathing; J40 Bronchitis, not specified as acute or chronic; G60.0 Hereditary motor and sensory neuropathy; Z93.0 Tracheostomy status
CPT/HCPCS: 36415; 71046; 80048; 85025; 85379; 85652; 86769; 99212

== ENCOUNTER 2020-09-05 15:34 | Outpatient (REF) | payer OTHER, SELFPAY ==
--- NOTE | ~2020-09-05 | CT_ITS ---
EXAMINATION: CT ANGIOGRAM OF THE CHEST WITH CONTRAST (CT PULMONARY ANGIOGRAM FOR PE) CLINICAL INFORMATION: Chest pain COMPARISON: CXR from 08/27/2020 TECHNIQUE: Prior to contrast administration, noncontrast localization images were obtained. Subsequently, multidetector volumetric imaging was performed from the thoracic inlet to below the diaphragms following the administration of 70 mL Omnipaque 350 intravenous contrast. No contrast reaction reported. Sagittal, coronal, and MIP oblique sagittal reformatted images were obtained on the CT workstation, uploaded to PACS, and reviewed. This CT examination was performed using dose optimization techniques as appropriate, variously including the following: *Automated exposure control *Adjustment of mA and/or kV according to patient size (this includes techniques or standardized protocols for targeted exams where dose is matched to indication/reason for exam; i.e. extremities or head) *Use of iterative reconstruction technique DLP: Total exam dose-length product 430 mGy-cm FINDINGS: LUNGS AND PLEURA: Tracheostomy tube in place. Lungs are adequately expanded. Platelike opacities of atelectasis are present in each lower lobe. No pulmonary edema, consolidation or pleural effusion. No pneumothorax. QUALITY OF STUDY/CONTRAST BOLUS: Satisfactory. CARDIOVASCULAR: Pulmonary arteries are normal in size. The densely opacified contrast traveling through the superior vena cava produces streak artifact. The streak artifact partially interferes with evaluation of the adjacent right upper lobe pulmonary artery. Accounting for the artifact, there is no convincing embolic filling defect in the right upper lobe. Also, no emboli are identified within branches of the left upper, middle or lower lobes. The heart size is normal. No pericardial effusion. Thoracic aorta is normal. No aneurysm or dissection. MEDIASTINUM/LOWER NECK: No mediastinal mass. No pneumomediastinum. The visualized portion of the thyroid gland is normal. The esophagus is unremarkable. LYMPHATICS: No pathologic sized axillary, hilar or mediastinal lymph nodes. UPPER ABDOMEN: No contrast reflux into the inferior vena cava. The visualized solid and hollow viscera of the upper abdomen are unremarkable. OSSEOUS STRUCTURES: No acute or suspicious osseous abnormality. CT/CT angio chest PE protocol IMPRESSION: * Tracheostomy tube in place. * Platelike atelectasis in each lower lobe. No evidence of pneumonia, pulmonary edema or pleural effusion. * Examination is negative for pulmonary embolism. The streak artifact produced by contrast in the superior vena cava partially interferes with evaluation of adjacent right upper lobe pulmonary artery. However, there is no convincing embolus, and no emboli are identified elsewhere in either lung.
[2020-09-05] MEDS: iohexoL 350 MG/ML 100 ML INFUS..BTL IV (16:07)
== END 2020-09-05 15:35 | disposition home or self-care (01) ==
LOC: HO.CT 15:34
PROVIDERS: Visit Provider Hospitalist
DX: R07.9 Chest pain, unspecified (principal)
CPT/HCPCS: 71275; Q9967

== ENCOUNTER → 2020-10-10 14:31 | Outpatient (BNVA) | payer OTHER, SELFPAY | PROVIDERS: PCP Internal Medicine; Visit Provider Hospitalist | DX: R07.9 Chest pain, unspecified (principal); J96.11 Chronic respiratory failure with hypoxia; G60.0 Hereditary motor and sensory neuropathy; Z93.0 Tracheostomy status; Z79.899 Other long term (current) drug therapy | CPT/HCPCS: 99212 ==

== ENCOUNTER 2021-01-22 12:55 | Outpatient (REF) | payer OTHER, SELFPAY ==
--- NOTE | 2021-01-22 13:41 | PFT_ITS ---
Forced vital capacity, FEV1, BFD22-27, and MVV are all markedly decreased. Post bronchodilator therapy, there is no significant change. Total lung capacity and residual volume are markedly increased. Diffusion capacity is moderately decreased. CONCLUSION: These findings are consistent with moderately severe obstructive airway disorder. There is no significant response to bronchodilator therapy. Increased TLC and residual volume are suggestive of hyperinflation and air trapping. * There seems to be some technical issue Clinical correlation is recommended. MD TRENT Briceno/MODKassi / [id number] MTDD
== END 2021-01-22 12:56 | disposition home or self-care (01) ==
LOC: HO.RESP 12:55
PROVIDERS: PCP Internal Medicine; Visit Provider Hospitalist
DX: J96.11 Chronic respiratory failure with hypoxia (principal); G60.0 Hereditary motor and sensory neuropathy
CPT/HCPCS: 94010

== ENCOUNTER → 2021-02-21 12:58 | Outpatient (BNVA) | payer OTHER, SELFPAY | PROVIDERS: PCP Internal Medicine; Visit Provider Hospitalist | DX: O99.511 Diseases of the respiratory system complicating pregnancy, first trimester (principal); J96.11 Chronic respiratory failure with hypoxia; O99.891 Other specified diseases and conditions complicating pregnancy; G60.0 Hereditary motor and sensory neuropathy; J38.00 Paralysis of vocal cords and larynx, unspecified; O99.211 Obesity complicating pregnancy, first trimester; O34.219 Maternal care for unspecified type scar from previous cesarean delivery; Z93.0 Tracheostomy status; Z88.8 Allergy status to other drugs, medicaments and biological substances; Z99.81 Dependence on supplemental oxygen; Z3A.10 10 weeks gestation of pregnancy | CPT/HCPCS: 99212 ==

== ENCOUNTER 2021-03-13 14:22 | Outpatient (REF) | payer OTHER, SELFPAY ==
--- NOTE | ~2021-03-13 | XR_ITS ---
EXAMINATION: XR CHEST CLINICAL INFORMATION: Tachycardia COMPARISON: Previous chest x-ray most recent August 2020 TECHNIQUE: 2 views of the chest were obtained. FINDINGS: There is a tracheostomy tube appears unchanged position. Cardiac silhouette is enlarged and stable. There is bilateral lower lung subsegmental atelectasis. The lungs are otherwise clear. There is no pleural effusion or pneumothorax. Bony structures are unremarkable. XR/XR chest 2V IMPRESSION: No evidence for acute disease in the chest. Stable chest x-ray from August 2020.
== END 2021-03-13 14:23 | disposition home or self-care (01) ==
LOC: HO.XRAY 14:22
PROVIDERS: PCP Internal Medicine; Visit Provider Hospitalist
DX: R00.0 Tachycardia, unspecified (principal); J96.11 Chronic respiratory failure with hypoxia; Z93.0 Tracheostomy status
CPT/HCPCS: 71046

== ENCOUNTER → 2021-03-14 11:26 | Outpatient (REF) | payer OTHER, SELFPAY ==
--- NOTE | ~2021-03-14 | NM_ITS ---
EXAMINATION: PULMONARY PERFUSION STUDY CLINICAL INFORMATION: Hypoxemia, chronic respiratory failure, tachycardia. Previous Covid March,. COMPARISON: The previous lung scan dated 03/20/2019. TECHNIQUE: Following the intravenous injection of 4.0 mCi Tc-99m MAA, an 8-view perfusion study was performed using a gamma scintillation camera. FINDINGS: No segmental perfusion defects are present. There is homogeneous distribution of activity bilaterally. There are no focal anatomic appearing perfusion defects present. Compared to the previous lung scan dated 03/20/2019, there has not been a significant change. NM/NM pul perfusion IMPRESSION: Normal radionuclide lung perfusion scan.
== END ==
LOC: HO.NUCMED 11:26
PROVIDERS: Visit Provider Hospitalist
DX: R00.0 Tachycardia, unspecified (principal); R09.02 Hypoxemia; G60.0 Hereditary motor and sensory neuropathy; Z93.0 Tracheostomy status; J96.11 Chronic respiratory failure with hypoxia
CPT/HCPCS: 78580; A9540

== ENCOUNTER → 2021-04-04 08:27 | Outpatient (REF) | payer OTHER, SELFPAY ==
--- NOTE | 2021-04-04 08:31 | CA_ITS ---
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 Visually estimated LVEF about 50%. - No obvious valvular pathology seen on this study. Findings Procedure Information Contrast agent, definity, is being given per protocol without apparent complications. Left Ventricle Normal left ventricular cavity size. There is normal left ventricular wall thickness. The left ventricular systolic function is mildly decreased. There is mild global hypokinesis. Diastolic function is normal for age. E/E prime ratio is <8, consistent with normal filling pressures. Visually estimated LVEF about 50%. Right Ventricle Normal right ventricular cavity size and systolic function. Atria Both atria are normal in size. Aortic Valve There is a normal trileaflet aortic valve. There is no aortic valve stenosis. There is no aortic valve regurgitation. Mitral Valve The mitral valve appears normal. There is trace mitral valve regurgitation. There is no mitral valve stenosis. Pulmonic Valve The pulmonic valve was not well visualized. Tricuspid Valve Normal tricuspid valve structure. There is trace tricuspid valve regurgitation. The pulmonary artery systolic pressure is normal. Great Vessels The aortic annulus, sinuses of valsalva, and asc aorta are normal in size. Venous The inferior vena cava is normal in size and collapses greater than 50% with inspiration. Pericardium/Pleural There is no evidence of pericardial effusion. Prior Study Comparison Changes noted compared to prior study dated: 06/23/2019. LVEF diminished. Recommendations, Care & Conclusions No obvious valvular pathology seen on this study. Measurements 2D Linear Measurements RVIDd: 3.07 RVIDd Index: 1.43 IVSd: 0.99 0.6-0.9/0.6-1.0 cm LVIDd: 4.73 3.9-5.3/4.2-5.9 cm LVIDd Index: 2.21 2.4-3.2/2.2-3.1 cm/m2 LVIDs: 2.91 2.0-3.6 cm LVPWd: 0.97 0.7-1.1 cm Ao Root: 3.20 2.1-3.5 cm LA Diam: 4.00 2.7-3.8/3.0-4.0 cm LAIDs Index: 1.87 1.5-2.3 cm/m2 LV Mass: 201.48 67-162/88-224 g LV Mass Index: 94.15 43-95/49-115 g/m2 LVOT Diam: 2.50 3.0+(-)1.3 cm 2D Systolic Function EF 4C: 52.50 >55% EF 2C: 65.40 >55% Mitral Valve MV Pk E: 0.71 MV PK A: 0.49 MV Decel Time: 137.00 E/A: 1.40 E'Lateral: 13.60 E'Medial: 12.20 E/E' Med: 5.80 E/E' Lat: 5.20 PHT: 40.00 MVA PHT: 5.50 Decel [place]: 5.15 Aortic Valve AoV Pk Samy: 1.13 AoV Mn Samy: 0.72 AoV VTI: 0.27 AoV Pk Grad: 5.00 Aov Mn Grad: 3.00 ROLANDO Cont.VTI: 2.99 LVOT LVOT Pk Samy: 0.74 LVOT Mn Samy: 0.53 LVOT VTI: 0.16 LVOT Pk Grad: 2.00 LVOT Mn Grad: 1.00 LVOT Diam: 2.50 LVOT Area: 4.91 Diastolic Function MV Pk E: 0.71 MV Pk A: 0.49 E/A: 1.40 E'Medial: 12.20 E/E' Med: 5.80 E' Laterial: 13.60 E/E' Lat: 5.20 Right Ventricle TAPSE (mm): 30.00 Tricuspid Valve TR Pk Samy: 2.13 TR Pk Grad: 18.00 RA Press: 3.00 RVSP: 22.00 Great Vessels Aorta Ao Root-2D: 3.20 2.0-3.7 cm Ao Asc: 2.80 2.1-3.4 cm Pulmonary Valve PV Pk Samy: 0.80 Peak PV Grad: 3.00 Updated in Other Vendor System with Status of Final Nirav Candelaria MD electronically signed on 04/05/2021 11:50:26 AM with status of Final
== END ==
LOC: HO.CARD 08:27
PROVIDERS: Visit Provider Hospitalist
DX: G60.0 Hereditary motor and sensory neuropathy (principal); J45.909 Unspecified asthma, uncomplicated; R00.0 Tachycardia, unspecified; R09.02 Hypoxemia; Z93.0 Tracheostomy status; Z99.81 Dependence on supplemental oxygen
CPT/HCPCS: 93306; 99212; Q9957

== ENCOUNTER 2021-04-17 12:25 | Outpatient (REF) | payer OTHER, SELFPAY ==
--- NOTE | ~2021-04-17 | XR_ITS ---
EXAMINATION: XR CHEST CLINICAL INFORMATION: Hypoxemia. COMPARISON: 03/13/21. 08/27/20. 03/20/19. TECHNIQUE: 2 views of the chest were obtained. FINDINGS: The tracheostomy tube remains in place with the tip overlying the trachea above the level of the thoracic inlet unchanged from previous. There is stable appearance of thin linear opacities at the bases consistent with minimal subsegmental atelectasis or scarring. The lungs are otherwise clear. No new abnormality. The pleural spaces are clear. The heart and mediastinal structures are normal. No bony abnormality is demonstrated. XR/XR chest 2V IMPRESSION: 1. Stable appearance of thin linear opacities at the bases consistent with minimal subsegmental atelectasis or scarring. No other abnormality. Tracheostomy tube in stable position.
== END 2021-04-17 12:26 | disposition home or self-care (01) ==
LOC: HO.LAB 12:25
PROVIDERS: Visit Provider Hospitalist
DX: J96.10 Chronic respiratory failure, unspecified whether with hypoxia or hypercapnia (principal); R00.0 Tachycardia, unspecified; G60.0 Hereditary motor and sensory neuropathy; Z93.0 Tracheostomy status
CPT/HCPCS: 71046; 99212

== ENCOUNTER → 2021-05-20 15:01 | Outpatient (BNVA) | payer OTHER, SELFPAY | PROVIDERS: PCP Internal Medicine; Visit Provider Internal Medicine Cardiovascular Disease | DX: R00.0 Tachycardia, unspecified (principal); R09.02 Hypoxemia | CPT/HCPCS: 93005; 99202 ==

== ENCOUNTER → 2021-06-02 14:12 | Outpatient (BNVA) | payer OTHER, SELFPAY | PROVIDERS: Visit Provider Hospitalist | DX: G60.0 Hereditary motor and sensory neuropathy (principal); R00.0 Tachycardia, unspecified; R09.02 Hypoxemia; R07.1 Chest pain on breathing; K21.9 Gastro-esophageal reflux disease without esophagitis; Z93.0 Tracheostomy status | CPT/HCPCS: 99212 ==

== ENCOUNTER → 2021-06-19 15:04 | Outpatient (BNVA) | payer OTHER, SELFPAY | PROVIDERS: PCP Internal Medicine; Visit Provider Hospitalist | DX: Z43.0 Encounter for attention to tracheostomy (principal); G60.0 Hereditary motor and sensory neuropathy; R00.0 Tachycardia, unspecified; R06.02 Shortness of breath; R07.9 Chest pain, unspecified; K21.9 Gastro-esophageal reflux disease without esophagitis | CPT/HCPCS: 99212 ==

== ENCOUNTER → 2021-07-10 14:26 | Outpatient (BNVA) | payer OTHER, SELFPAY | PROVIDERS: PCP Internal Medicine; Visit Provider Hospitalist | DX: G60.0 Hereditary motor and sensory neuropathy (principal); R09.02 Hypoxemia; K21.9 Gastro-esophageal reflux disease without esophagitis; Z93.0 Tracheostomy status | CPT/HCPCS: 99212 ==

== ENCOUNTER → 2021-08-08 13:20 | Outpatient (BNVA) | payer OTHER, SELFPAY | PROVIDERS: PCP Internal Medicine; Visit Provider Hospitalist | DX: R09.02 Hypoxemia (principal); G60.0 Hereditary motor and sensory neuropathy; K21.9 Gastro-esophageal reflux disease without esophagitis; Z93.0 Tracheostomy status | CPT/HCPCS: 99212 ==

== ENCOUNTER 2021-09-08 10:33 | Outpatient (REF) | payer OTHER, SELFPAY ==
--- NOTE | ~2021-09-08 | XR_ITS ---
EXAMINATION: XR CHEST CLINICAL INFORMATION: Tracheostomy status COMPARISON: Previous chest x-ray April 2021 TECHNIQUE: 2 views of the chest FINDINGS: The cardiac and mediastinal contours are stable. There is a tracheostomy that appears unchanged in position. The tip is 8.4 cm above the demond. Subsegmental atelectasis at the left lung base. The lungs are otherwise clear. There is no pleural effusion or pneumothorax. Bony structures are normal. XR/XR chest 2V IMPRESSION: Satisfactory position of tracheostomy tube. Subsegmental atelectasis at the left lung base.
== END 2021-09-08 10:34 | disposition home or self-care (01) ==
LOC: HO.XRAY 10:33
PROVIDERS: PCP Internal Medicine; Visit Provider Hospitalist
DX: R13.10 Dysphagia, unspecified (principal); Z39.0 Encounter for care and examination of mother immediately after delivery
CPT/HCPCS: 71046; 99212

== ENCOUNTER 2021-10-03 10:25 | Outpatient (REF) | payer OTHER, SELFPAY ==
--- NOTE | ~2021-10-03 | FL_ITS ---
EXAMINATION: FL BARIUM SWALLOW CLINICAL INFORMATION: Dysphagia. COMPARISON: None TECHNIQUE: Modified barium swallow with speech pathologist. FINDINGS: Multiple consistencies were swallowed from thin liquid to barium-coated cookie. No nasopharyngeal reflux or tracheal aspiration was identified. No cricopharyngeal hypertrophy or Zenker's diverticulum. FLUOROSCOPY TIME: 1.3 minutes DOSE AREA PRODUCT: 2.284 Gy-cm2 (addison-centimeter squared) FL/FL barium swallow modified IMPRESSION: Normal modified barium swallow. Please refer to speech pathology report for details.
--- NOTE | 2021-10-03 17:01 | MHC.SL.IMP ---
Date of Plan of Treatment: 10/03/21 Onset of Symptoms/Illness: 91 Date Treatment Started: 10/03/21 Admitting Diagnosis: Primary (admitting) Diagnosis: Charcot Shantell Tooth muscular atrophy Comorbidities: Chest pain Chronic respiratory failure Dysphagia GERD (gastroesophageal reflux disease) Hypoxia Pneumonia Tachycardia Tracheostomy in place Past Medical History: delivery due to maternal disorder, delivered, [facility] Primary Speech & Language Diagnosis: R13.12 Oropharyngeal Phase Dysphagia Reason for Today's Visit: 24540 Modified Barium Swallow Study Comments: Patient reports history of pneumonia. Patient w/ tracheostomy, complicated by vocal fold paralysis. Pre-evaluation Dietary Consistencies: Regular Pre-evaluation Liquid Consistency: Thin Pre-evaluation Medication Administration: Whole with Liquid Medical History: Modified Barium Swallow Study Fluoroscopic Evaluation of Swallowing Function CPT Code 24653 Evaluation Year: 2021 Reason for Study: Patient has hx dysphagia. Referring Physician: Rashaun Irwin M.D. Evaluating Clinician: Hafsa Ott MA, CCC-ELECTROLYSIST Study Number: 1 Patient Name: Jessica Salvador Status: Outpatient, Ambulatory Age: 31 Gender: Female MEDICAL HISTORY: Primary (admitting) Diagnosis: Charcot Shantell Tooth muscular atrophy Comorbidities: Chest pain Chronic respiratory failure Dysphagia GERD (gastroesophageal reflux disease) Hypoxia Pneumonia Tachycardia Tracheostomy in place Past Medical History: delivery due to maternal disorder, delivered, [facility] Current (pre-evaluation) Intake/Diet: Route: PO Diet Grade: Regular Liquid Consistencies: Thin Pre-Study Functional Oral Intake Scale (FOIS): 7- Total oral intake with no restrictions Pain: Chronic/Ongoing reported at time of study, Throat, rated 4 on scale 0-10 SUBJECTIVE: Patient is a 31 year old female with Charcot Shantell Tooth muscular atrophy, complicated by vocal cord paralysis status post tracheostomy with 4 CFS. Medical history also includes chronic respiratory failure, hypoxia, pneumonia, tachycardia. Patient sees Dr. Irwin from [facility] Pul[facility]. Per chart review, patient was previously admitted to [facility] for ?inpatient evaluation for significant hypoxia. Which she was there she had an aspiration event and became low more hypoxic. She was evaluated from a cardiac status in a pulmonary status and all the workup came back relatively negative except for diaphragmatic dysfunction likely worsened by her .? Dr. Irwin most recently noted on 09/08/21: ?The patient is here for a pulmonary follow-up visit. Since we last spoke she was exposed to sick contact. Her diet had been sick with a cold. Therefore, she started developing worsening cough congested in nature with green sputum. She also complained of some such as chest tightness and she has been noticing some wheezing. She was tested for COVID-19 which was negative. Today in the office with his while about her tracheostomy. And placed a new number for [employer] tracheostomy. She did tolerate the procedure well. She does tolerate the Passy Aaliyah valve. She continues use the oxygen with sleep. her oxygen levels have been adequate during the daytime even with the increased chest tightness. The patient also had a chest x-ray which I personally reviewed demonstrating some chronic atelectasis in the left base otherwise no acute disease.? Patient attended this exam unaccompanied. Patient reports history of dysphagia since she was a child. She says she has had coughing and choking episodes while eating or drinking since she was a child. Patient reports she had a barium swallow study 5-6 years ago in [place], which turned out fine. Patient reports pain when swallowing, rating the pain level 3-4 on a scale 0 to 10. Patient reports some meats and nuts feel stuck in the back of her throat. Chest x-ray 09/08/21: ?Satisfactory position of tracheostomy tube. Subsegmental atelectasis at the left lung base.? Oral Motor Exam Facial Symmetry: Symmetrical Mouth Occlusion: Normal Oral-Facial Teeth Characteristics: Intact/Normal Oral-Facial Lip Pucker Description: Normal Oral-Facial Smile (Lips) Description: Normal Oral-Facial Puff Cheeks Description: Normal Tongue Size: Normal Tongue Excursion Description: Incomplete Tongue Speed of Movement Description: Normal Tongue Strength of Movement (against opposing pressure): Normal Is patient able to manage secretions?: Yes Food and Liquid Trials: Oral Impairment: Lip Closure: Did not test Oral Impairment: Tongue Control During Bolus Hold: 0=Cohesive bolus between tongue to palatal seal Oral Impairment: Bolus Preparation/Mastication: 0=Timely and efficient chewing and mashing Oral Impairment: Bolus Transport/Lingual Motion: 2=Slowed tongue motion Oral Impairment: Oral Residue: 1=Trace residue lining oral structures Oral Impairment:Initiation of Pharyngeal Swallow: 2=Bolus head at posterior laryngeal surface of epiglottis Pharyngeal Impairment: Soft Palate Elevation: 0=No bolus between soft palate (SP)/pharyngeal wall (PW) Pharyngeal Impairment: Laryngeal Elevation: 1=Partial thyroid cartilage/arytenoids to epiglottic petiole movement Pharyngeal Impairment: Anterior Hyoid Excursion: 1=Partial anterior movement Pharyngeal Impairment: Epiglottic Movement: 1=Partial inversion Pharyngeal Impairment: Laryngeal Vestibular Closure:: 0=Complete: no air/contrast in laryngeal vestibule Pharyngeal Impairment: Pharyngeal Stripping Wave: 0=Present: complete Pharyngeal Impairment: Pharyngeal Contraction: Did not test Pharyngeal Impairment: Pharyngoesophageal Segment Openin=Complete distension and complete duration: no obstruction of flow Pharyngeal Impairment: Tongue Base (TB) Retraction: 2=Narrow column of contrast/air between TB and posterior PW Pharyngeal Impairment: Pharyngeal Residue: 1=Trace residue within or on pharyngeal structures Pharyngeal Impairment: Esophageal Clearance Upright Position: Did not test Impressions and Recommendations Clinical Observations: OBJECTIVE: Time-out: performed at 11:30 Evaluation Start: 11:15; Stop: 11:20 Tracheostomy tube present Patient Positioning: Standing Viewing Planes: LATERAL ONLY Contrast: MBSImP? Standardized Protocol using commercially prepared, standardized Barium viscosities, including: Varibar? THIN LIQUID (40% w/v, <15 cps) , 1/2 Shortbread Cookie (1 x1 x.25 ) MBSImP ID: [id number] [facility]: Lip closure for intraoral bolus containment could not be assessed due to logistical reasons not related to physiologic impairment. Tongue control during bolus hold maintained a cohesive bolus held between tongue to palate seal. Bolus preparation and mastication resulted in timely and efficient chewing and mashing. Bolus transport/lingual motion was with slowed tongue motion. Oral residue was a trace, lining oral structures. Initiation of the pharyngeal swallow occurred as the bolus head was at the posterior laryngeal surface of the epiglottis. Soft palate elevation resulted in no bolus between the soft palate and the pharyngeal wall. Laryngeal elevation was decreased, with partial superior movement of the thyroid cartilage/partial approximation of the arytenoids to the epiglottic petiole. Anterior hyoid excursion demonstrated partial anterior movement. Epiglottic movement resulted in partial inversion. Laryngeal vestibular closure was complete, as indicated by no air or contrast within the laryngeal vestibule at the height of the swallow. Pharyngeal stripping wave was present and complete. Pharyngeal contraction could not be determined due to logistical reasons not related to physiologic impairment. Pharyngoesophageal segment opening was completely distended for complete duration with no obstruction of bolus flow. Tongue base retraction allowed a narrow column of contrast or air between the retracted tongue base and the posterior pharyngeal wall. Pharyngeal residue was a trace within or on pharyngeal structures. Esophageal clearance in the upright position could not be assessed due to logistical reasons not related to physiologic impairment. Oral Impairment Score: 4 (absence of score, component 1) Pharyngeal Impairment Score: 5 (absence of score, component 13) Esophageal Impairment Score: --- (absence of score, component 17) Laryngeal Penetration and Aspiration: Neither penetration nor aspiration was observed in today's study with Cookie, Thin. ASSESSMENT: Clinician Assessment: This exam was conducted by a multidisciplinary team which included a radiologist, speech pathologist, and laser/electro optics technician. Patient was seated upright at 90 degrees in a chair for lateral view only. Patient trialed the following liquid and solid consistencies: thin liquid barium by cup, pureed solid (mixture applesauce with barium paste), ground solid (mixture chicken salad with barium paste), regular solid (Arleth Doone cookie coated with barium paste). Visualized tracheostomy tube. Patient confirmed she had Passy Aaliyah valve in place. Good tongue control. Patient maintained cohesive bolus between tongue to palatal seal, with no premature posterior escape of bolus. Mastication was timely and efficient. Posterior lingual movement for bolus transport was slowed. Trace lingual residue subsequently cleared. Pharyngeal swallow trigger initiated when bolus head reached posterior laryngeal surface of epiglottis. No nasopharyngeal reflux. Partial laryngeal elevation with partial anterior movement of hyoid and partial epiglottic inversion. Laryngeal vestibular closure was complete. No evidence of aspiration or penetration with liquids and solids during this exam. Trace pharyngeal residue on tongue base, in valleculae, and on pharyngeal wall. Residue subsequently cleared. Liquid Intake Recommendation: Thin Liquid Intake Strategies: Small Sips Dietary Recommendations: Regular Medication Administration: Whole with Liquid Please contact the pharmacy regarding appropriate crushable or liquid drug formulations that are available whenever modified delivery is recommended. Compensatory Strategies Recommended: Sitting Upright (90 deg) Double Swallow Small Bites and Sips Alternate Liquids/Solids Rate of Ingestion Change Avoid Specific Foods Supervision during eating and or drinking: None Needed Recommendation for Speech Therapy: NA:Typical Evaluation Intake Recommendations: Route: PO Diet Grade: Regular Liquid Consistencies: Thin Post-Study Functional Oral Intake Scale (FOIS): 6- Total oral intake with no special preparation, but must avoid specific foods or liquid items There was no evidence of aspiration or penetration during this exam. Trace oral and pharyngeal residue subsequently cleared. Recommend patient to continue with REGULAR solids and THIN liquids, pills in PUREE or LIQUID per tolerance. Passy Selby valve in place when swallowing. Placement of Passy Aaliyah valve may improve subglottic air pressure and improve swallow mechanism. Patient reported she has a tendency to ?gulp water.? ELECTROLYSIST reviewed with patient aspiration precautions. Patient verbalized understanding. Aspiration precautions include: -Take small, individual sips of liquid -Avoid ?chugging? consecutive sips of liquid -One bite at a time and chew food well -Moisten food with sauce/gravy as needed -Double swallow or take a sip of liquid to wash residue -Avoid foods which cause you more difficulty swallowing (i.e. nuts, rice, tough meats) -Upright 90 degree position when eating/drinking Recommend patient to continue monitoring dysphagia. Contact PCP if there is any worsening of dysphagia, in which case patient may need re-evaluation. Therapy Recommendations: Therapy will be discontinued Prognosis for Improvement: The prognosis for the patient to meet nutritional needs by mouth is excellent based on degree of impairment. Clinician - Supplemental, Miscellaneous Communication: It is important to note MBSS objective studies are snapshots in time and Patient function might vary with factors such as time of day or concomitant medical conditions. For this reason, the final treatment plan for this patient should rest with their medical care team. Additional recommendations should be considered with the totality of the Patient in mind. Thank for the opportunity to participate in the care of this patient. If you have any questions about the content of this report, please contact the [facility] at [facility]. Education: Education regarding findings from today's study and plans for therapy were provided to Patient only through Verbal Instruction. Understanding was expressed by the Patient only. Detention Deputy Clinician/Clinical Fellow: No Supervisory Statement: N/A Speech Language Pathologist: Hafsa Ott M.A., [facility]-ELECTROLYSIST
== END 2021-10-03 10:26 | disposition home or self-care (01) ==
LOC: HO.XRAY 10:25
PROVIDERS: Visit Provider Hospitalist
DX: R13.10 Dysphagia, unspecified (principal)
CPT/HCPCS: 74230; 92611

== ENCOUNTER → 2021-11-04 15:01 | Outpatient (BNVA) | payer OTHER, SELFPAY | PROVIDERS: PCP Internal Medicine; Visit Provider Hospitalist | DX: Z43.0 Encounter for attention to tracheostomy (principal); G60.0 Hereditary motor and sensory neuropathy; R09.02 Hypoxemia; K21.9 Gastro-esophageal reflux disease without esophagitis; J45.909 Unspecified asthma, uncomplicated | CPT/HCPCS: 99212 ==

== ENCOUNTER → 2022-03-09 13:20 | Outpatient (BNVA) | payer OTHER, SELFPAY | PROVIDERS: PCP Internal Medicine; Visit Provider Hospitalist | DX: Z23 Encounter for immunization (principal); J45.909 Unspecified asthma, uncomplicated; R09.02 Hypoxemia; G60.0 Hereditary motor and sensory neuropathy; K21.9 Gastro-esophageal reflux disease without esophagitis; Z93.0 Tracheostomy status | CPT/HCPCS: 90471; 90686; 99212 ==

== ENCOUNTER 2022-11-11 11:02 | Outpatient (AMB) | payer OTHER, SELFPAY ==
--- NOTE | 2022-11-11 11:08 | A.OFFVIS_ITS ---
Intake Vital Signs 11/11/22 11:09 Height 5 ft 4 in Weight 225 lb 4.999 oz BMI 38.7 Pulse 89 Pulse Source Pulse Oximeter Pulse Oximetry (%) 96 Oxygen Delivery Method Room Air Intake Visit Reasons: Shortness of breath follow-up Marking Machine Tender Required: No Allergies prednisone [PREDNISONE] Allergy (Severe, Verified 11/11/22 11:10) Difficulty Breathing HPI HPI Comments History of Present Illness Details The patient is a 32-year-old woman with Charcot Shantell to complicated by vocal cord paralysis status post tracheostomy with 4 CFS. The patient has been noticing since 3 days ago that she is having some chest discomfort. 8/10 in severity. Asthma getting worse. Associated with shortness of breath. Also noticed that she was coughing out some blood. She denies any sick lately like symptoms. Denies any fevers or chills. She came today for an appointment. We did change how her tracheostomy since she could not put the inner cannula back in. However her heart rate went up to 130 and her pulse ox 95%. She is 10 weeks gestation. She needs to be evaluated in the ER this time. We did review her results from when she went to the ER. She did have an elevated white count but otherwise her labs were okay. Her x-ray and her V/Q scan and lower extremity Dopplers were all reasonable. She did follow-up with Ob and had ultrasound baby that seem to be perfect. In the meantime she has been concerned about the albuterol because of the elevated heart rates in the palpitations. Now that she is with to be extremely careful. Therefore in the office we did provide her with Xopenex 1.25 mg which she tolerated significantly better. Therefore, I will send her Xopenex to the pharmacy. She failed albuterol due to the tachyarrhythmias and palpitations especially now . She has felt some palpitations getting worse as well. We did go for brief walking oximetry on room air she became short of breath and her heart rate went up to 130 and pulse ox decreased to 87 %. She was placed on 2 L nasal cannula. Her pulse ox was 98% with activity she felt a lot better on the oxygen. She needs to continue using the oxygen with activity and sleep. She will be following up with OBG[place] [facility] [phone]. She recently was admitted to [facility] for inpatient evaluation for significant hypoxia. Which she was there she had an aspiration event and became low more hypoxic. She was evaluated from a cardiac status in a pulmonary status and all the workup came back relatively negative except for diaphragmatic dysfunction likely worsened by her . The possibility of pulmonary hypertension is a reasonable thought. And because of her increased weight gain and daytime drowsiness with an elevated Dowling score she will benefit from getting a sleep study. However with a tracheostomy in the tachycardia I do believe a diagnostic sleep study will be best. 11/04/2021 the patient is here for a pulmonary follow-up visit. Overall she is doing well. She denies any respiratory complaints. She is tolerating her tracheostomy well. She did mention that at home she does not use the inner cannula. When she did change her tracheostomy at the bedside I did a sister the inner part of the tracheostomy was cover with debris. Explained to her that by allowing debride to build up inside the tracheostomy it would only cause a potential obstruction if she tries to push in the inner cannula. Therefore I did ask her to keep the inner cannula and at all times. She does not seem to use her humidity all the time so therefore the mucus can get dry impacted within the trachea itself. The patient came in because she wants to be able to change her tracheostomy herself. I did assist her, but she was able to change her tracheostomy without complications. She will not be doing tracheostomy changes by herself. She does have a backup smaller trach in case she runs into difficulties. 03/09/2022 the patient is here for a pulmonary follow-up visit. Since we last spoke the patient has been doing well from a respiratory status. She has been changing her tracheostomy every month without any difficulties. denies any tenderness over the stoma site and also denies any significant secretions. She has not had any recent infections. She have an appointment soon with her ENT doctor. She continues to have her nebulized therapy. She does need a rescue inhaler for her to carry. I will provide her Combivent to the pharmacy. In addition to that she will get a flu shot. 11/11/2022 the patient is here for sick visit. She was exposed to a sick contact. Her daughter was sick with a cold last week. Now she started developing worsening cough. When she starts coughing she loses her breath. She has a hard time breathing. Last night she woke up out of a sound sleep with significant shortness of breath. She has been using her nebulizer. She denies any fevers or chills. Her cough for the most part is dry although at times she does bring up some mucus. When she does bring up the mucus is typically greenish or grayish in color. She has had history of Pseudomonas. No significant hypoxia at this time. Her respiratory exam is relatively normal. Her symptoms appear to be more consistent with croup. Likely the tracheitis has resulted in more difficulty breathing through the trach. She is keeping the trach open for better airway passage. Will go ahead and placed on Decadron for taper in addition to that the coin 4 history of Pseudomonas. She can also try the benzo nights to see if this provides her with some relief. If her symptoms worsen she will need to call for it in the evaluation of go to the ER. [facility] Medical History (Updated 11/11/22 @ 22:18 by Rashaun Irwin MD) delivery due to maternal disorder, delivered, [facility] Charcot Shantell Tooth muscular atrophy Chest pain Chronic respiratory failure Dysphagia GERD (gastroesophageal reflux disease) Hypoxia Pneumonia Tachycardia Tracheostomy in place Social History (Updated 02/21/21 @ 13:07 by JONATHAN Denson) Household Members: Spouse and Children Housing: House Do you presently have visiting nurse or other home services: No Alcohol intake: never Patient Tobacco Use Status: Never used Tobacco service: No Current occupational status: disabled Review of Systems Const Denies night sweats and Reports weight loss ENT Denies change in voice, Denies lip swelling, Denies mouth pain, Denies nasal congestion, Denies nasal discharge and Denies tongue swelling Card Denies chest pain, Reports dyspnea and Reports dyspnea on exertion Resp Reports change in phlegm color, Reports chest congestion, Reports cough, Denies hemoptysis, Reports excessive phlegm production, Denies pain on inspiration, Denies pain with cough, Reports dyspnea, Reports dyspnea on exertion and Denies wheezing GI Denies abdominal pain Musc Denies no additional complaints Neuro Denies Neuro-related abnormal movements Psych Denies no additional complaints Ryan/Lymph Denies easy bleeding and Denies lymphadenopathy Aller/Immun Denies lip swelling, Denies tongue swelling and Denies wheezing Physical Exam Vital Signs: Last Vital Signs Pulse 89 11/11/22 11:09 Pulse Ox 96 11/11/22 11:09 Oxygen Delivery Method Room Air 11/11/22 11:09 BMI result Body Mass Index 38.7 Const General: alert Neck Neck: Yes normal visual inspection, Yes full ROM, Yes no lymphadenopathy and Yes tracheostomy present Chest Chest palpation & inspection: normal inspection of the chest Resp Effort & Inspection: Actively coughing Quality: actively coughing Auscultation: no rhonchi, no wheezes and diminished lung sounds Cardio Rate: regular rate Rhythm: regular rhythm Heart sounds: S1 normal heart sound present and S2 normal heart sound present GI Palpation (GI): Soft to palpation and nontender Auscultation: normal bowel sounds Skin General skin exam: rashes and/or lesions noted Assessment & Plan Assessment & Plan (1) 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 (2) Hypoxia: Code(s): R09.02 - Hypoxemia (3) Tracheostomy in place: Code(s): Z93.0 - Tracheostomy status (4) GERD (gastroesophageal reflux disease): Code(s): K21.9 - Gastro-esophageal reflux disease without esophagitis Qualifiers: Esophagitis presence: without esophagitis Qualified Code(s): K21.9 - Gastro-esophageal reflux disease without esophagitis (5) Reactive airway disease: Code(s): J45.909 - Unspecified asthma, uncomplicated Qualifiers: Asthma severity: moderate Asthma complication type: with acute exacerbation (6) Tracheitis: Code(s): J04.10 - Acute tracheitis without obstruction Plan Trach [id number] start Levaquin Start Decadron Benzonates as needed Continue oxygen with sleep. PPI for reflux disease should also sleep elevated combivent CXR Duoneb as needed while in the home F/U 6 months Orders: Orders XR chest 2V Today R05.9 - Cough, unspecified Medications: New benzonatate 200 mg PO BID 30 days PRN 60 caps 6RF cough dexamethasone orally daily; Take 1 tab BID x 5 days, then 1 tab daily x 5 days 10 days 15 tabs 0RF levofloxacin 500 mg PO DAILY 14 days 14 tabs 0RF Coding Level of Care Code Est Pt Level 4 (99087) Diagnoses Charcot Shantell Tooth muscular atrophy G60.0 Hypoxia R09.[address] Z93.0 GERD (gastroesophageal reflux disease) K21.9 Esophagitis presence: without esophagitis Reactive airway disease J45.909 Asthma severity: moderate Asthma complication type: with acute exacerbation Tracheitis J04.10 Time Spent (min) 19
[2022-11-11 11:09] VITALS: PULSE 89; O2SAT 96; BMI 38.7
== END 2022-11-11 11:24 | disposition home or self-care (01) ==
PROVIDERS: PCP Internal Medicine; Visit Provider Hospitalist
DX: G60.0 Hereditary motor and sensory neuropathy (principal); R09.02 Hypoxemia; Z93.0 Tracheostomy status; K21.9 Gastro-esophageal reflux disease without esophagitis; J45.909 Unspecified asthma, uncomplicated; J04.10 Acute tracheitis without obstruction
CPT/HCPCS: 99214

== ENCOUNTER 2022-11-11 11:02 | Outpatient (REF) | payer OTHER, SELFPAY ==
--- NOTE | ~2022-11-11 | XR_ITS ---
EXAMINATION: XR CHEST CLINICAL INFORMATION: Cough COMPARISON: 09/08/2021 TECHNIQUE: 2 views of the chest were obtained. FINDINGS: Tracheostomy tube in place. No significant abnormality is noted involving the heart, lungs, mediastinum, bony thorax or soft tissues. XR/XR chest 2V IMPRESSION: Unremarkable examination.
== END 2022-11-11 11:03 | disposition home or self-care (01) ==
LOC: HO.XRAY 11:02
PROVIDERS: PCP Internal Medicine; Visit Provider Hospitalist
DX: G60.0 Hereditary motor and sensory neuropathy (principal); R06.02 Shortness of breath; R09.02 Hypoxemia; K21.9 Gastro-esophageal reflux disease without esophagitis; J45.909 Unspecified asthma, uncomplicated; J04.10 Acute tracheitis without obstruction; R05.9 Cough, unspecified; Z93.0 Tracheostomy status
CPT/HCPCS: 71046; 99212

== ENCOUNTER 2023-02-12 09:37 | Outpatient (AMB) | payer OTHER, SELFPAY ==
[2023-02-12 10:06] VITALS: PULSE 89; O2SAT 94; BMI 38.7
--- NOTE | 2023-02-12 10:06 | A.OFFVIS_ITS ---
Intake Vital Signs 02/12/23 10:06 Height 5 ft 4 in Weight 225 lb 12.054 oz BMI 38.7 Pulse 89 Pulse Source Pulse Oximeter Pulse Oximetry (%) 94 Oxygen Delivery Method Room Air Intake Visit Reasons: Shortness of breath follow-up Geoscience Specialist Required: No Allergies prednisone [PREDNISONE] Allergy (Severe, Verified 02/12/23 10:08) Difficulty Breathing HPI HPI Comments History of Present Illness Details The patient is a 32-year-old woman with Charcot Shantell to complicated by vocal cord paralysis status post tracheostomy with 4 CFS. The patient has been noticing since 3 days ago that she is having some chest discomfort. 8/10 in severity. Asthma getting worse. Associated with shortness of breath. Also noticed that she was coughing out some blood. She denies any sick lately like symptoms. Denies any fevers or chills. She came today for an appointment. We did change how her tracheostomy since she could not put the inner cannula back in. However her heart rate went up to 130 and her pulse ox 95%. She is 10 weeks gestation. She needs to be evaluated in the ER this time. We did review her results from when she went to the ER. She did have an elevated white count but otherwise her labs were okay. Her x-ray and her V/Q scan and lower extremity Dopplers were all reasonable. She did follow-up with Ob and had ultrasound baby that seem to be perfect. In the meantime she has been concerned about the albuterol because of the elevated heart rates in the palpitations. Now that she is with to be extremely careful. Therefore in the office we did provide her with Xopenex 1.25 mg which she tolerated significantly better. Therefore, I will send her Xopenex to the pharmacy. She failed albuterol due to the tachyarrhythmias and palpitations especially now . She has felt some palpitations getting worse as well. We did go for brief walking oximetry on room air she became short of breath and her heart rate went up to 130 and pulse ox decreased to 87 %. She was placed on 2 L nasal cannula. Her pulse ox was 98% with activity she felt a lot better on the oxygen. She needs to continue using the oxygen with activity and sleep. She will be following up with OBGYN at [facility] [place] [phone]. She recently was admitted to [facility] for inpatient evaluation for significant hypoxia. Which she was there she had an aspiration event and became low more hypoxic. She was evaluated from a cardiac status in a pulmonary status and all the workup came back relatively negative except for diaphragmatic dysfunction likely worsened by her . The possibility of pulmonary hypertension is a reasonable thought. And because of her increased weight gain and daytime drowsiness with an elevated [place] score she will benefit from getting a sleep study. However with a tracheostomy in the tachycardia I do believe a diagnostic sleep study will be best. 11/04/2021 the patient is here for a pulmonary follow-up visit. Overall she is doing well. She denies any respiratory complaints. She is tolerating her tracheostomy well. She did mention that at home she does not use the inner cannula. When she did change her tracheostomy at the bedside I did a sister the inner part of the tracheostomy was cover with debris. Explained to her that by allowing debride to build up inside the tracheostomy it would only cause a potential obstruction if she tries to push in the inner cannula. Therefore I did ask her to keep the inner cannula and at all times. She does not seem to use her humidity all the time so therefore the mucus can get dry impacted within the trachea itself. The patient came in because she wants to be able to change her tracheostomy herself. I did assist her, but she was able to change her tracheostomy without complications. She will not be doing tracheostomy changes by herself. She does have a backup smaller trach in case she runs into difficulties. 03/09/2022 the patient is here for a pulmonary follow-up visit. Since we last spoke the patient has been doing well from a respiratory status. She has been changing her tracheostomy every month without any difficulties. denies any tenderness over the stoma site and also denies any significant secretions. She has not had any recent infections. She have an appointment soon with her ENT doctor. She continues to have her nebulized therapy. She does need a rescue inhaler for her to carry. I will provide her Combivent to the pharmacy. In addition to that she will get a flu shot. 11/11/2022 the patient is here for sick visit. She was exposed to a sick contact. Her daughter was sick with a cold last week. Now she started developing worsening cough. When she starts coughing she loses her breath. She has a hard time breathing. Last night she woke up out of a sound sleep with significant shortness of breath. She has been using her nebulizer. She denies any fevers or chills. Her cough for the most part is dry although at times she does bring up some mucus. When she does bring up the mucus is typically greenish or grayish in color. She has had history of Pseudomonas. No significant hypoxia at this time. Her respiratory exam is relatively normal. Her symptoms appear to be more consistent with croup. Likely the tracheitis has resulted in more difficulty breathing through the trach. She is keeping the trach open for better airway passage. Will go ahead and placed on Decadron for taper in addition to that the coin 4 history of Pseudomonas. She can also try the benzo nights to see if this provides her with some relief. If her symptoms worsen she will need to call for it in the evaluation of go to the ER. 02/12/2023 the patient is here for a pulmonary follow-up visit. Overall the patient has been doing well. Her new tracheostomy appears to be working well. Although she is been having some difficulties getting supplies the [employer]. They did give her a call and let her know that everything should be all set now. If she runs into any difficulty she will call back and we can sort out with the [employer] company. She has not had any recent infections. The last time she was treated was back over the summer. Secretions are stable. She is tolerating her PMV. The patient is back to going for OT and PT therapy. She is noticed a slight worsening of her upper extremity motor function. She continues use the oxygen at nighttime with good effect. The oxygen therapy has been affecting beneficial. [facility] Medical History (Updated 02/14/23 @ 21:08 by Rashaun Irwin MD) Dysphagia GERD (gastroesophageal reflux disease) Hypoxia Tachycardia Chronic respiratory failure Chest pain Pneumonia delivery due to maternal disorder, [facility] 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 Social History (Updated 02/21/21 @ 13:07 by JONATHAN Denson) Household Members: Spouse and Children Housing: House Do you presently have visiting nurse or other home services: No Alcohol intake: never Patient Tobacco Use Status: Never used Tobacco service: No Current occupational status: disabled Review of Systems Const Denies night sweats, Reports weakness and Reports weight loss ENT Denies change in voice, Denies lip swelling, Denies mouth pain, Denies nasal congestion, Denies nasal discharge and Denies tongue swelling Card Denies chest pain and Reports dyspnea on exertion Resp Denies change in phlegm color, Denies chest congestion, Reports cough, Denies hemoptysis, Denies excessive phlegm production, Denies pain on inspiration, Denies pain with cough, Reports dyspnea on exertion and Denies wheezing GI Denies abdominal pain Musc Reports as per HPI Neuro Reports as per HPI, Denies Neuro-related abnormal movements and Reports weakness Psych Denies no additional complaints Ryan/Lymph Denies easy bleeding and Denies lymphadenopathy Aller/Immun Denies lip swelling, Denies tongue swelling and Denies wheezing Physical Exam Vital Signs: Last Vital Signs Pulse 89 02/12/23 10:06 Pulse Ox 94 02/12/23 10:06 Oxygen Delivery Method Room Air 02/12/23 10:06 BMI result Body Mass Index 38.7 Const General: alert Neck Neck: Yes normal visual inspection, Yes full ROM, Yes no lymphadenopathy and Yes tracheostomy present Chest Chest palpation & inspection: normal inspection of the chest Resp Effort & Inspection: Actively coughing Quality: actively coughing Auscultation: no rhonchi, no wheezes and diminished lung sounds Cardio Rate: regular rate Rhythm: regular rhythm Heart sounds: S1 normal heart sound present and S2 normal heart sound present GI Palpation (GI): Soft to palpation and nontender Auscultation: normal bowel sounds Skin General skin exam: rashes and/or lesions noted Immunizations pneumoc 20-christoph conj-dip cr(PF) 0.5 mL IM syringe Performing Provider: Rashaun Irwin MD Performing Location: [facility] Pulmonology Services Administered by: Hamida Miller LPN on 02/12/23 10:27 Dose Route Admin Location Dispensed Lot Number Expiration Date [employer] 0.5 mL IM Left Deltoid 0.5 mL [id number] 03/02/24 5038-8869-43 [employer] VIS Given Date VIS Provided VIS Publication Date 02/12/23 Single Vaccine 22 Eligibility Eligibility Date Funding Source Not [facility] Eligible 02/12/23 Private Assessment & Plan Assessment & Plan (1) Charcot Shantell Tooth muscular atrophy: Comment: interval worsening 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 PPI for reflux disease should also sleep elevated combivent Duoneb as needed while in the home Neurology referral for MD. 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
== END 2023-02-12 10:27 | disposition home or self-care (01) ==
PROVIDERS: PCP Internal Medicine; Visit Provider Hospitalist
DX: G60.0 Hereditary motor and sensory neuropathy (principal); R09.02 Hypoxemia; Z93.0 Tracheostomy status; K21.9 Gastro-esophageal reflux disease without esophagitis
CPT/HCPCS: 99214

== ENCOUNTER → 2023-02-12 09:37 | Outpatient (BNVA) | payer OTHER, SELFPAY | PROVIDERS: PCP Internal Medicine; Visit Provider Hospitalist | DX: Z23 Encounter for immunization (principal); G60.0 Hereditary motor and sensory neuropathy; R09.02 Hypoxemia; K21.9 Gastro-esophageal reflux disease without esophagitis; Z93.0 Tracheostomy status | CPT/HCPCS: 90471; 90677; 99212 ==

== ENCOUNTER 2023-03-13 16:58 | Emergency (ER) | payer OTHER, SELFPAY ==
--- NOTE | ~2023-03-13 | XR_ITS ---
EXAMINATION: XR CHEST CLINICAL INFORMATION: Cough. COMPARISON: Chest radiograph 11/11/2022. TECHNIQUE: 2 views of the chest were obtained. FINDINGS: Midline tracheostomy. Normal appearance of the cardiomediastinal silhouette. Unchanged central peribronchial thickening. Slightly increased bibasilar platelike opacities. No new focal infiltrate. No pleural effusion or pneumothorax. No acute osseous findings. XR/XR chest 2V IMPRESSION: 1. Unchanged central peribronchial thickening that could be seen with chronic small airways disease. 2. Slightly increased bibasilar streaky opacities, favoring to represent atelectasis, though early infiltrates are difficult to exclude, recommend clinical correlation for signs/symptoms of respiratory infection.
[2023-03-13 17:17] VITALS: BP 126/72; PULSE 113; RESP 20; TEMP 37.3; O2SAT 96; BMI 42.2
--- NOTE | 2023-03-13 17:17 | ED.GENADULT ---
HPI - General Adult General Chief complaint: Upper Respiratory Symptoms Stated complaint: ? trach infection Time Seen by Provider: 03/13/23 20:27 Source: patient Mode of arrival: ambulatory Limitations: no limitations History of Present Illness HPI narrative: Patient is a 32-year-old female with Charcot Shantell complicated by vocal cord paralysis s/p tracheostomy presenting to the emergency department with complaint of cough, dark sputum occasionally blood tinged, and hoarse voice for the past 4-5 days. Reports discomfort around trach due to cough. She denies fevers. Reports mild sore throat. Denies abdominal pain, nausea, vomiting, or diarrhea. Denies chest pain or palpitations. States her daughter is sick with a cough as well. MD complaint: cough Onset (ago): day(s) Location: neck and chest Radiation: non-radiation Associated symptoms: cough Treatments prior to arrival: none Related Data Home Medications Medication Instructions Recorded Confirmed Oxygen Home Use 04/04/21 05/20/21 solifenacin 5 mg tablet 5 mg PO DAILY 04/04/21 05/20/21 sertraline 50 mg tablet 50 mg PO DAILY 03/09/22 nebulizers 11/11/22 Previous Rx's Medication Instructions Recorded ipratropium 0.5 mg-albuterol 3 mg 3 ml inhalation BID PRN shortness 08/27/20 (2.5 mg base)/3 mL nebulization of breath or wheezing 30 days #180 soln mL chlorhexidine gluconate 0.12 % 15 ml buccal BID 14 days #420 mL 08/08/21 mouthwash omeprazole 40 mg capsule,delayed 40 mg PO DAILY #30 caps 03/18/22 release ipratropium 20 mcg-albuterol 100 1 puff inhalation QID 30 days #4 07/20/22 mcg/actuation mist for inhalation grams (Combivent Respimat) benzonatate 200 mg capsule 200 mg PO BID PRN cough 30 days 11/11/22 #60 caps dexamethasone 4 mg tablet See Rx Instructions PO DAILY 10 11/11/22 days #15 tabs levofloxacin 500 mg tablet 500 mg PO DAILY 14 days #14 tabs 11/11/22 dexamethasone 4 mg tablet 4 mg PO DAILY #15 tabs 03/13/23 levofloxacin 500 mg tablet 500 mg PO DAILY #14 tabs 03/13/23 Allergies Allergy/AdvReac Type Severity Reaction Status Date / Time prednisone [PREDNISONE] Allergy Severe Difficulty Verified 02/12/23 10:08 Breathing Review of Systems Review of Systems: As per HPI. Yes all other systems are reviewed and are negative Constitutional: Constitutional: Reports as per HPI [facility] Past Medical History Medical History (Updated 03/13/23 @ 20:51 by Sabi Underwood NP) Dysphagia GERD (gastroesophageal reflux disease) Hypoxia Tachycardia Chronic respiratory failure Chest pain Pneumonia delivery due to maternal disorder, delivered, [facility] 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 Social History Social History (Updated 02/21/21 @ 13:07 by JONATHAN Denson) Household Members: Spouse and Children Housing: House Do you presently have visiting nurse or other home services: No Alcohol intake: never Patient Tobacco Use Status: Never used Tobacco Advance Directives: Yes Advance Directives Information Provided: No Advance Directives on File: No service: No Current occupational status: disabled Physical Exam ED Vital Signs: Vital Signs - 24 hr 03/13/23 17:17 03/13/23 20:42 Temperature 99.2 F 97.8 F Pulse Rate 113 H 109 H Respiratory Rate 20 20 Blood Pressure 126/72 99/55 L Pulse Oximetry 96 98 Oxygen Delivery Method Room Air Room Air BMI result Body Mass Index 42.2 Vital signs have been reviewed and appear to be correct. Blood pressure normal. Heart rate slightly tachycardic. Respiratory rate normal. Temperature normal. Oxygen saturation normal. Const General: cooperative, healthy appearing and no acute distress Orientation/consciousness: oriented to person, oriented to place, oriented to time and patient oriented x3 Limitations: no limitations HENIA Other: hoarse voice Head: Yes normocephalic and Yes atraumatic Ears: external ears normal General nose exam: Normal external nose present Face and sinus: Yes face symmetric Mouth: oropharynx normal and moist mucous membranes Throat: No posterior oropharynx normal (erythema without edema or exudate), Yes uvula midline and No uvular edema Eyes Pupils: Equal, round and reactive pupils present Neck Neck: Yes supple and Yes tracheostomy present (no surrounding edema or erythema, no drainage) Resp Effort & Inspection: normal respiratory effort and able to speak in complete sentences Auscultation: clear to auscultation bilaterally Cardio Rate: regular rate Rhythm: regular rhythm Heart sounds: S1 normal heart sound present and S2 normal heart sound present GI Palpation (GI): Soft to palpation and nontender Auscultation: normoactive bowel sounds General: Yes no CVA tenderness Back/Spine/Pelvis Back: no CVA tenderness Skin General skin exam: elasticity normal and turgor normal Neuro General: oriented to person, oriented to place, oriented to time, patient oriented x3, moves all extremities, no focal motor deficits and CN's II-XI intact bilaterally Cranial nerves: Yes Equal, round and reactive pupils present Cognition (Neuro): normal cognition Extrem General: Yes full ROM, Yes no pedal edema and Yes no calf tenderness Psych Mental Status: mental status grossly normal Affect: normal affect Thought process: Normal thought process present Course Course Course Narrative: This is a rapid medical exam. deferred additional HPI, ROS, PE to primary provider 32 yo female with hx trach and hx of CMT, has PPM hypoxia here with bloody tinged sputum, cough, hoarse voice, pain around trach site x 4-5 days. No fevers, chills. H/o tracheitis and this feels similar however she doesn't normally have a hoarse voice. Will obtain CXR, viral testing, strep testing. VSS Medical Decision Making Medical Decision Making [facility] Narrative: Patient is a 32-year-old female with Charcot Shantell complicated by vocal cord paralysis s/p tracheostomy presenting to the emergency department with complaint of cough, dark sputum occasionally blood tinged, and hoarse voice for the past 4-5 days. On exam patient is awake, A+Ox3, slightly tachycardic, VS otherwise WNL, afebrile, normal neurological exam without focal deficits, physical exam findings as above. Given reported symptoms and physical exam findings, initial differential includes viral illness, covid, flu, RSV, strep pharyngitis, tracheitis, bronchitis, pneumonia. Swabs for COVID, flu, RSV, and strep all negative. X-ray notable for slightly increased bibasilar streaky opacities. My interpretation is in agreement with the radiologist's interpretation. Given the patient is high risk and has upper respiratory symptoms, will treat with levofloxacin and dexamethasone taper at this time. Instructed patient to follow-up with linoleum floor installer on Wednesday. Return precautions discussed at bedside patient verbalized understanding of and agreement with plan. Differential Diagnosis Differential Diagnoses: The differential diagnosis associated with the presentation includes As per MDM. Lab Data [facility] Lab Attestation statement: I reviewed the patient's lab results. As per [facility]. Labs: Lab Results 03/13/23 Range/Units 17:37 Influenza Type A (PCR) NEGATIVE (Negative) Influenza Type B (PCR) NEGATIVE (Negative) RSV RNA Qual (PCR) NEGATIVE (Negative) SARS-CoV-2 RNA (RT-PCR) NEGATIVE (Negative) S. pyogenes GrpA CAROLYNN Negative (Negative) Independent Interpretation I performed an independent interpretation of an: Plain X-Ray Interpretation: increased bibasilar opacities Radiology Impression Discussion of test interpretation with radiology: I have reviewed the radiologist's reading. Radiologist Impression: XR/XR chest 2V IMPRESSION: 1. Unchanged central peribronchial thickening that could be seen with chronic small airways disease. 2. Slightly increased bibasilar streaky opacities, favoring to represent atelectasis, though early infiltrates are difficult to exclude, recommend clinical correlation for signs/symptoms of respiratory infection. External Record Review External record reviewed: Inpatient record, Office record and Outpatient record Prescription Management I considered prescription management with: Antibiotic and Other Discharge Plan Discharge Clinical Impression: Acute upper respiratory infection Patient Disposition: Home, Self-Care Instructions: Upper Respiratory Infection (DC) Additional Instructions: You are being prescribed antibiotics, please complete the full course as prescribed. Please call your linoleum floor installer on Wednesday for follow up. Return to the emergency department if you develop difficulty breathing, shortness of breath, fever 100.4F or greater, chest pain, or any other concerning symptoms. Prescriptions: New levofloxacin 500 mg tablet 500 mg PO DAILY Qty: 14 0RF dexamethasone 4 mg tablet 4 mg PO DAILY Qty: 15 0RF Rx Instructions: Take one tab BID x 5 days, then 1 tab daily x 5 days No Action omeprazole 40 mg capsule,delayed release(DR/EC) 40 mg PO DAILY Qty: 30 3RF Combivent Respimat 20-100 mcg/actuation mist 1 puff inhalation QID 30 Days Qty: 4 11RF Rx Instructions: space evenly during waking hours ipratropium-albuterol 0.5 mg-3 mg(2.5 mg base)/3 mL solution for nebulization 3 ml inhalation BID PRN (Reason: shortness of breath or wheezing) 30 Days Qty: 180 11RF solifenacin 5 mg tablet 5 mg PO DAILY sertraline 50 mg tablet 50 mg PO DAILY (DME) Oxygen Home Use Kit See Rx Instructions .Route Rx Instructions: As directed chlorhexidine gluconate 0.12 % mouthwash 15 ml buccal BID 14 Days Qty: 420 1RF (DME) nebulizers Mis See Rx Instructions .ROUTE Rx Instructions: As directed benzonatate 200 mg capsule 200 mg PO BID PRN (Reason: cough) 30 Days Qty: 60 6RF dexamethasone 4 mg tablet See Rx Instructions PO DAILY 10 Days Qty: 15 0RF Rx Instructions: orally daily; Take 1 tab BID x 5 days, then 1 tab daily x 5 days levofloxacin 500 mg tablet 500 mg PO DAILY 14 Days Qty: 14 0RF
[2023-03-13 17:57] LABS: IDNOW Serial# 6674DD1D; Strep A Nucleic Acid Negative (Negative)
--- OUTSIDE RECORDS SUMMARY | 2023-03-13 18:06 | XMS_ITS | Continuity of Care Document ---
Author Name Unknown Organization [facility] Address [address] [place] [address]- Care Team Providers Care Cast Iron Dipper Name Role Phone Jayshree Mishra MD Primary Care Physician [phone] [place] [facility] [place]): [place]10[place]20 - 01/09/21 [facility] [address], [place] [address] Attending Physician: Romario Ashton Admitting Physician: Romario Ashton Referring Physician: Admtr, Romario Allergies, Adverse Reactions, Alerts Substance Reaction Severity Status prednisone severe behavior reaction Act med Immunizations Given and Recorded Vaccine Date Status Refusal Reason tetanus/diphtheria/pertussis, acel(Tdap) 07/10/19 Recorded tetanus/diphtheria/pertussis, acel(Tdap) 01/03/15 Given influenza virus vaccine, inactivated 04/03/19 Mamadou rded influenza virus vaccine, inactivated 03/02/18 Mamadou rded influenza virus vaccine, inactivated 03/02/16 Mamadou rded influenza virus vaccine, inactivated 1 01/03/14 Gi jazmnie influenza virus vaccine, inactivated 2 02/11/12 Gi jazmine influenza virus vaccine, inactivated 03/04/11 Give n influenza virus vaccine, inactivated 05/13/10 Give n influenza virus vaccine, inactivated 3 02/08/09 Gi jazmine influenza virus vaccine, inactivated 01/19/07 Give n pneumococcal 23-valent vaccine 03/29/18 Recorded pneumococcal 23-valent vaccine 02/13/10 Given Meningococcal Polysaccharide Vaccine 05/13/10 Give n Meningococcal Polysaccharide Vaccine 09/06/09 Give n Haemophilus B Conj Vaccine (oldterm) 02/19/09 Give n Tet/Diphth/Acel, Pertussis (oldterm) 02/14/09 Give n influ virus vac, H1N1, inactive(oldterm) 02/14/09 Given Influenza Inactive (IM) (oldterm) 4 02/20/08 Given Human Papillomavirus Vaccine 5 07/21/07 Given Human Papillomavirus Vaccine 03/21/07 Given Human Papillomavirus Vaccine 6 01/19/07 Given tetanus-diphtheria toxoids (Td) 12/12/03 Given tetanus-diphtheria toxoids (Td) 08/28/02 Given tetanus-diphtheria toxoids (Td) 08/16/02 Given Polio Vaccine, Live (oldterm) 7 05/31/97 Given Polio Vaccine, Live (oldterm) 8 11/29/95 Given Polio Vaccine, Live (oldterm) 9 12/28/94 Given Polio Vaccine, Live (oldterm) 10 09/27/94 Given Diphtheria/Tet/Pertussis, Acel (oldterm) 05/31/97 Given Diphtheria/Tet/Pertussis, Acel (oldterm) 11/29/95 Given Diphtheria/Tet/Pertussis, Acel (oldterm) 02/09/95 Given Diphtheria/Tet/Pertussis, Acel (oldterm) 12/28/94 Given Diphtheria/Tet/Pertussis, Acel (oldterm) 09/27/94 Given Measles/Mumps/Rubella Virus Vaccine 11/29/95 Given Measles/Mumps/Rubella Virus Vaccine 09/27/94 Given Measles/Mumps/Rubella Virus Vaccine 07/18/92 Recor ded Hepatitis B Vaccine (old term) 11/29/95 Given Hepatitis B Vaccine (old term) 12/28/94 Given Hepatitis B Vaccine (old term) 09/27/94 Given 1Admin Note: vis=12/19/2013 2Admin Note: given at [facility] [place] 3Admin Note: vis given 4Admin Note: vix 11/24/07 5Admin Note: VIS 06/04/06 6Admin Note: GARDASIL #1 7Admin Note: oral 8Admin Note: oral 9Admin Note: oral 10Admin Note: oral Medications Adult Incontinence Liners Adult Incontinence Liners, See Instructions, # 180 each, Refills 11, Tot. Refills 11, Maintenance, Use Up To 6/Day Use As Indicated Dx: Charcot-Shantell Tooth Syndrome (G60); Obesity (E66.9); Urge Incontinence (N39.41) Duration: Lifetime, 01/09/21 1... Start Date: 01/09/21 Status: Ordered Non-Slip Tub Mat Non-Slip Tub Mat, See Instructions, # 1 each, Refills 0, Tot. Refills 0, Maintenance, Use As Indicated Dx: Charcot-Shantell Tooth Syndrome (G60); Obesity (E66.9) Duration: Lifetime, 01/09/21 10:13:00 EDT, Supply Start Date: 01/09/21 Status: Ordered Shower Chair See Instructions, # 1 each, Maintenance, Use As Indicated Dx: Charcot-Shantell Tooth Syndrome (G60); Obesity (E66.9) Duration: Lifetime, 01/09/21 10:11:00 EDT, Supply Start Date: 01/09/21 Status: Ordered VESIcare 5 mg oral tablet 1 tablet = 5 mg, By Mouth, Daily, # 30 tablet, 11 Refills, Maintenance, 03/26/20 10:54:00 EST, Tablet, [id number], Partial fill upon patient request, 162, cm, 10/27/19 11:01:00 EDT, Height, 116, kg, 10/27/19 11:01:00 EDT, Dry Weight Start Date: 03/26/20 Status: Ordered Problem List Condition Effective Dates Status Health Status Inform ant Anal fissure(Confirmed) 1 Active Asthma(Confirmed) Active 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, f/u normal, f ollowed by BOOT MAKER(Confirmed) Active Respiratory failure, chronic - [facility] admit 06/2019, diaphram dysfunction/, 2L O2(Confirmed) Active 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)(Worsening) 2 Active Foot-drop(Confirmed) Active Herpes genitalis(Confirmed) Active Ptdhblo-Goknh-Fdeqe syndrome(Confirmed) Active IgA nephropathy(Confirmed) Active Major depression(Confirmed) Active Obesity(Confirmed) Active Obstructive sleep apnea syndrome(Confirmed) Active Overactive bladder(Confirmed) Active Coccydynia(Confirmed) Active BHN/ONECARE/CC-Milagro Pelletier-[phone]/Health Skilled Nursing, Active Care Coordination(Confirmed) Active PCOS (polycystic ovarian syndrome)(Confirmed) Active Posttraumatic Stress Disorder(Confirmed) 07/31/10 Active Tracheostomy(Confirmed) Active Tracheostomy in place(Confirmed) Active Urinary urgency(Confirmed) Active Vocal cord paralysis - CPAP for sleep(Confirmed) Active 1Otherwise normal colonoscopy by Dr. Melchor, 02/07 2type 2A (with vocal cord paralysis) Social History Social History Type Response Smoking Status Never smoker; Type: Cigarettes entered on: 07/31/14 Sex
--- OUTSIDE RECORDS SUMMARY | 2023-03-13 18:06 | XMS_ITS | Continuity of Care Document ---
Author Name Unknown Organization [facility] Address [address] [place] [address]- Care Team Providers Care Barrel Coater Name Role Phone Danica VALENZUELA, Jayshree Mclean Primary Care Physician [facility] Date[facility]s): 01/20/23 - 02/19/23 [facility] [address] [place] [address] Allergies, Adverse Reactions, Alerts Substance Reaction Severity Status prednisone severe behavior reaction Act med Immunizations Given and Recorded Vaccine Date Status Refusal Reason SARS-CoV-2 (COVID-19) mRNA BNT-162b2 vac 01/09/21 Recorded tetanus/diphtheria/pertussis, acel(Tdap) 07/10/19 Recorded tetanus/diphtheria/pertussis, acel(Tdap) 01/03/15 Given influenza virus vaccine, inactivated 04/03/19 Mamadou rded influenza virus vaccine, inactivated 03/02/18 Mamadou rded influenza virus vaccine, inactivated 03/02/16 Mamadou rded influenza virus vaccine, inactivated 1 01/03/14 Gi jazmine influenza virus vaccine, inactivated 2 02/11/12 Gi [...] 1Admin Note: vis=12/19/2013 2Admin Note: given at [facility] 3Admin Note: vis given 4Admin Note: [...] 01/09/21 1... Start Date: 01/09/21 Status: Ordered Bilateral Blue Rocker AFOs Bilateral Blue Rocker AFOs, See Instructions, # 1 kit, Refills 0, Tot. Refills 0, Maintenance, Dx; CMT, bilateral foot drop., 01/16/21 8:49:00 EDT, Supply Start Date: 01/16/21 Status: Ordered diclofenac sodium 75 mg oral delayed release tablet 1 tablet = 75 mg, By Mouth, 2 times a day, # 28 tablet, 0 Refills, Maintenance, 07/31/22 14:33:00 EDT, EC Tablet, [id number], Partial fill upon patient request if the prescription is for a schedule II opioid drug., 163, cm, 07/31/22 14:27:00 E... Start Date: 07/31/22 Stop Date: 08/14/22 Status: Ordered Non-Slip Bath Mat Non-Slip Bath Mat, See Instructions, # 1 each, Refills 0, Tot. Refills 0, Maintenance, Non-slip bath mat Use as directed when bathing/exiting bath Dx: G60, M21.371, Z91.81, R26.89 Duration: Lifetime,05/07/21 14:07:00 EST, Supply Start Date: 05/07/21 Status: Ordered Non-Slip Tub Mat Non-Slip Tub Mat, See Instructions, # 1 each, Refills 0, Tot. Refills 0, Maintenance, Use As Indicated Dx: Charcot-Shantell Tooth Syndrome (G60); Obesity (E66.9) Duration: Lifetime, 01/09/21 10:13:00 EDT, Supply Start Date: 01/09/21 Status: Ordered sertraline 50 mg oral tablet 1 tablet = 50 mg, By Mouth, Daily, # 30 tablet, 11 Refills, Maintenance, 04/28/22 20:25:00 EST, Tablet, [id number], Partial fill upon patient request if the prescription is for a schedule II opioid drug., 165, cm, 11/20/21 19:07:00 EDT, Height Start Date: 04/28/22 Status: Ordered Shower Chair See Instructions, # 1 each, Maintenance, SHOWER CHAIR WITH BACK AND ARM HANDLES PT IS REQUIRED TO SIT WHILE SHOWERING Use as directed when showering Dx: G60, M21.371, Z91.81, R26.89 Duration: Lifetime, 05/07/21 14:11:00 EST, Supply Start Date: 05/07/21 Status: Ordered VESIcare 5 mg oral tablet 1 tablet = 5 mg, By Mouth, Daily, # 30 tablet, 11 Refills, Maintenance, 11/20/21 20:01:00 EDT, Tablet, [id number], Partial fill upon patient request, 165, cm, 11/20/21 19:07:00 EDT, Height Start Date: 11/20/21 Status: Ordered Problem List Condition Confirmation Course Effective Dates Status H ealth Status Informant Anal fissure 1 Confirmed Active Asthma Confirmed Active 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, f/u normal, followed by AUTOMOTIVE DESIGNER Confirmed Active Respiratory failure, chronic - [facility] admit 06/2019, diaphram dysfunction/ , 2L O2 Confirmed Active Right foot pain Confirmed Active Foot-drop Confirmed Active Bilateral foot-drop Confirmed Active Herpes genitalis Confirmed Active Uqtlkqp-Syxfa-Yqldm syndrome Confirmed Active IgA nephropathy Confirmed Active Obesity Confirmed Active Obstructive sleep apnea syndrome Confirmed Active Overactive bladder Confirmed Active Coccydynia Confirmed Active *BHN/[facility] OneCare/Alarm Adjuster-Kalyani Null-[phone] /Health custodial, active care coordination Confirmed Active PCOS (polycystic ovarian syndrome) Confirmed Active Posttraumatic Stress Disorder Confirmed 07/31/10 Active Mild recurrent major depression Confirmed Active Tracheostomy Confirmed Active Tracheostomy in place Confirmed Active Urinary urgency Confirmed Active Vocal cord paralysis - CPAP for sleep Confirmed Active 1Otherwise normal colonoscopy by Dr. Melchor, 02/07 Social History Social History Type Response Smoking Status Never smoker; Type: Cigarettes entered on: 07/31/14 Sex Patient Care team information Care Team Personnel Name: Elian Todd MD Position: [facility] Renal MD Member Role: Lifetime Consulting Physician Address: Address: [address] [place] [address], [facility] [address] [place] [address]- Name: Shakira Padron NP Position: Reference Physician Member Role: Primary Care Nurse Address: Address: [address] [place] [address]- Name: Jayshree Mishra MD Position: [facility] Physician - Primary Care Member Role: PCP Address: Address: [address] [facility] Adult [facility] [place], [place] [address] Care Team Related Persons Name: ESTHER SALDIVAR Address: home [address] [place] [address] Name: SALDIVARSHANNON ALONZOKEERTHI Address: [address] Address: [address] Name: SABRINA ED[place] Address: [place] [address]
--- OUTSIDE RECORDS SUMMARY | 2023-03-13 18:06 | XMS_ITS | Continuity of Care Document ---
Author Name Unknown Organization [facility] Address [address] [place] [address]- Care Team Providers Care Speeder Tender Name Role Phone Jayshree Mishra MD Primary Care Physician [phone] [facility]counter [facility]): 01[facility]27[facility]23 - 02/26/23 [facility] [address] [place] [address] Allergies, Adverse Reactions, Alerts Substance Reaction Severity [...] 1Admin Note: vis=12/19/2013 2Admin Note: [place] [facility] [place]Admin Note: vis given 4Admin Note: vix [...] Refills, Maintenance, 07/31/22 14:33:00 EDT, EC Tablet, [facility] #[id number], Partial fill upon patient request if [...] Active 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, f/u normal, followed by LONG WALL MINING MACHINE TENDER Confirmed Active Respiratory failure, chronic - [facility] admit 06/2019, diaphram dysfunction/ , 2L O2 Confirmed Active Right foot pain Confirmed Active Foot-drop Confirmed Active Bilateral foot-drop Confirmed Active Herpes genitalis Confirmed Active Yjxryaz-Uyknd-Vbwar syndrome Confirmed Active IgA nephropathy Confirmed Active Obesity Confirmed Active Obstructive sleep apnea syndrome Confirmed Active Overactive bladder Confirmed Active Coccydynia Confirmed Active *BHN/[facility]Care/On Site Nurse-Kalyani Null-[phone] /Health snf, active care coordination Confirmed Active PCOS (polycystic [...] Team Personnel Name: Elian Todd MD Position: [facility] Renal MD Member Role: Lifetime Consulting Physician Address: Address: [address] [place] [address], [address] [place] [address]- Name: Shakira Padron NP Position: Reference Physician Member Role: Primary Care Nurse Address: Address: [address] [place] [address]- Name: Jayshree Mishra MD Position: [facility] Physician - Primary Care Member Role: PCP Address: Address: [address] [facility] [place] [address]- Care Team Related Persons Name: SALDIVARESTHER Address: [address] Address: [address] Name: JANNA DANIELLESHAR Address: home [address] [place] [address] Name: SABRINA EDMONDSON Address: home [address] [place] [address]
--- OUTSIDE RECORDS SUMMARY | 2023-03-13 18:06 | XMS_ITS | Continuity of Care Document ---
Author Name Unknown Organization [facility] Address [address] [place] [address]- Care Team Providers Care Drawing Kiln Operator Name Role Phone Jayshree Mishra MD Primary Care Physician [facility]s): 05[facility]30/22 - 06/29/22 [facility] [address] [place], [place] [address] Attending Physician: AdmRomario chavez Admitting Physician: Admtr, Romario Referring Physician: Admtr, Ar8 Allergies, Adverse Reactions, Alerts Substance Reaction Severity [...] 1Admin Note: vis=12/19/2013 2Admin Note: given at [facility] [place] 3Admin Note: vis given 4Admin Note: vix [...] EDT, Supply Start Date: 01/16/21 Status: Ordered Non-Slip Bath Mat Non-Slip Bath [...] Active 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, f/u normal, followed by LEAD IOS DEVELOPER Confirmed Active Respiratory failure, chronic - [facility] admit 06/2019, diaphram dysfunction/ , 2L O2 Confirmed Active Right foot pain Confirmed Active Foot-drop Confirmed Active Bilateral foot-drop Confirmed Active Herpes genitalis Confirmed Active Mhlolti-Ygjog-Osonv syndrome Confirmed Active IgA nephropathy Confirmed Active Obese class II Confirmed Active Obesity Confirmed Active Obstructive sleep apnea syndrome Confirmed Active Overactive bladder Confirmed Active Coccydynia Confirmed Active BHN/ONECARE/CC-Mariela MchughEvznric-[phone] [facility], Active Care Coordination Confirmed Active PCOS (polycystic ovarian syndrome) Confirmed [...] Team Personnel Name: Elian Todd MD Position: [facility] Physician (General Medicine) Member Role: Lifetime Consulting Physician Address: Address: [address] [place] [address], [address] [place] [address]- Name: Shakira Padron NP Position: Reference Physician Member Role: Primary Care Nurse Address: Address: [address] [place] [address]- Name: Jayshree Mishra MD Position: [facility] Primary Care Physician Member Role: PCP Address: Address: [address] [place] [address], -[facility] [place] [address]- Care Team Related Persons Name: ESTHER SALDIVAR Address: home [address] [place] [address] Name: ESTHER SALDIVAR Address: home [address] [place] [address] Name: SABRINA EDMONDSON Address: home [address] [place] [address]
--- OUTSIDE RECORDS SUMMARY | 2023-03-13 18:06 | XMS_ITS | Continuity of Care Document ---
Author Name Unknown Organization [facility] Address [address] [place] [address]- Care Team Providers Care Wood Milling Machine Operator Name Role Phone Jayshree Mishra MD Primary Care Physician [facility]): 01/08/23 - 02/07/23 [facility] [address] [place], [place] [address] Allergies, Adverse Reactions, Alerts Substance Reaction [...] 1Admin Note: vis=12/19/2013 2Admin Note: given at [facility] [place] 3Admin Note: vis given 4Admin Note: vix [...] Active 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, f/u normal, followed by HOP STRAINER Confirmed Active Respiratory failure, chronic - [facility] admit 06/2019, diaphram dysfunction/ , 2L O2 Confirmed Active Right foot pain Confirmed Active Foot-drop Confirmed Active Bilateral foot-drop Confirmed Active Herpes genitalis Confirmed Active Lqbfkkk-Uzetc-Ascli syndrome Confirmed Active IgA nephropathy Confirmed Active Obesity Confirmed Active Obstructive sleep apnea syndrome Confirmed Active Overactive bladder Confirmed Active Coccydynia Confirmed Active *BHN/[facility]/Cad Intern-Kalyani Null-[phone] /Health alf, active care coordination Confirmed Active PCOS (polycystic [...] Team Personnel Name: Elian Todd MD Position: [facility] Renal MD Member Role: Lifetime Consulting Physician Address: Address: [address] [place] [address], [address] [place] [address]- Name: Shakira Padron NP Position: Reference Physician Member Role: Primary Care Nurse Address: Address: [address] [place] [address]- Name: Jayshree Mishra MD Position: [facility] Physician - Primary Care Member Role: PCP Address: Address: [address] [place] [address] [place] [address]- Care Team Related Persons Name: ESTHER SALDIVAR Address: home [address] [place] [address] Name: ESTHER SALDIVAR Address: [address] Address: home [address] [place] [address] Name: EDMONDSONSABRINA Address: [address] [address]
--- OUTSIDE RECORDS SUMMARY | 2023-03-13 18:06 | XMS_ITS | Continuity of Care Document ---
Author Name Unknown Organization [facility] Address [address] [place] [address]- Care Team Providers Care Vac Press Operator Name Role Phone Jayshree Mishra MD Primary Care Physician [facility]): 04/[facility]/22 - 05/13/22 [facility] [address] [place], [place] [address] Attending Physician: Magda De La Torre NP Admitting Physician: Magda De La Torre NP Allergies, Adverse Reactions, Alerts Substance Reaction Severity [...] 1Admin Note: vis=12/19/2013 2Admin Note: given at [facility] [place] 3Admin Note: vis given 4Admin Note: vix [...] Active 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, f/u normal, followed by RESEARCH TEST ENGINE OPERATOR Confirmed Active Respiratory failure, chronic - [facility] admit 06/2019, diaphram dysfunction/ , 2L O2 Confirmed Active Right foot pain Confirmed Active Foot-drop Confirmed Active Bilateral foot-drop Confirmed Active Herpes genitalis Confirmed Active Nauifid-Mxruq-Suicw syndrome Confirmed Active IgA nephropathy Confirmed Active Obese class II Confirmed Active Obesity Confirmed Active Obstructive sleep apnea syndrome Confirmed Active Overactive bladder Confirmed Active Coccydynia Confirmed Active BHN/ONECARE/CC-Mariela MchughTbqbsrq-[phone] Health [facility], Active Care Coordination Confirmed Active PCOS (polycystic [...] Team Personnel Name: Elian Todd MD Position: [facility] Physician (General Medicine) Member Role: Lifetime Consulting Physician Address: Address: [address] [place] [address], [address] [place] [address]- Name: Shakira Padron NP Position: Reference Physician Member Role: Primary Care Nurse Address: Address: [address] [place] [address]- Name: Jayshree Mishra MD Position: [facility] Primary Care Physician Member Role: PCP Address: Address: [address] [place] [address], -[facility] [place] [address]- Care Team Related Persons Name: ESTHER SALDIVAR Address: home [address] [place] [address] Name: ESTHER SALDIVAR Address: home [address] [place] [address] Name: SABRINA EDMONDSON Address: home [address] [place] [address]
--- OUTSIDE RECORDS SUMMARY | 2023-03-13 18:07 | XMS_ITS | Continuity of Care Document ---
Author Name Unknown Organization [facility] Address [address] [place] [address]- Care Team Providers Care Strategic Planning Analyst Name Role Phone Jayshree Mishra MD Primary Care Physician [facility]s): 04[facility]13[facility]22 - 05/13/22 [facility] [address] [place], [place] [address] Attending Physician: Romario Ashton Admitting Physician: AdmtrRomario Referring Physician: Admtr, ArNando Allergies, Adverse Reactions, Alerts Substance Reaction Severity [...] 1Admin Note: vis=12/19/2013 2Admin Note: given at [facility] [place] 3Admin Note: vis given 4Admin Note: vix [...] 11 Refills, Maintenance, 04/28/22 20:25:00 EST, Tablet, [facility]/pharmacy #[id number], Partial fill upon patient request if [...] Active 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, f/u normal, followed by PIN MACHINE TENDER Confirmed Active Respiratory failure, chronic - [facility] admit 06/2019, diaphram dysfunction/ , 2L O2 Confirmed Active Right foot pain Confirmed Active Foot-drop Confirmed Active Bilateral foot-drop Confirmed Active Herpes genitalis Confirmed Active Mhmbrjo-Rpfgo-Aadbn syndrome Confirmed Active IgA nephropathy Confirmed Active Obese class II Confirmed Active Obesity Confirmed Active Obstructive sleep apnea syndrome Confirmed Active Overactive bladder Confirmed Active Coccydynia Confirmed Active BHN/ONECARE/CC-Mariela MchughYjjgkkr-[phone] Health [facility], Active Care Coordination Confirmed Active PCOS (polycystic [...] smoker; Type: Cigarettes entered on: 07/31/14 Sex Note * Event Display: Cardiology Office Note, Non- Authored Date: Patient Care team information Care Team Personnel Name: Elian Todd MD Position: [facility] Physician (General Medicine) Member Role: Lifetime Consulting Physician Address: Address: [address] [place] [address], [address] [place] [address]- [place] Name: Shakira Padron NP Position: Reference Physician Member Role: Primary Care Nurse Address: Address: [address] [place] [address]- [place] Name: Jayshree Mishra MD Position: [facility] Primary Care Physician Member Role: PCP Address: Address: [address] [place] [address], -[facility] [place] [address]- Care Team Related Persons Name: ESTHER SALDIVAR Address: home [address] [place] [address] Name: ESTHER SALDIVAR Address: home [address] [place] [address] Name: SABRINA EDMONDSON Address: home [address] [place] [address]
--- OUTSIDE RECORDS SUMMARY | 2023-03-13 18:07 | XMS_ITS | Continuity of Care Document ---
Author Name Unknown Organization [facility] Address [address] [place] [address]- Care Team Providers Care Handle Rounder Operator Name Role Phone Danica VALENZUELA, Jayshree Mclean Primary Care Physician Encounter [facility] Date(s): 11/19/22 - 11/19/[address] [address]- Discharge Disposition: A-D/C Home Attending Physician: Jose VALENZUELA, Andre Field Admitting Physician: Jose VALENZUELA, Andre Field Referring Physician: Not on Staff, Referring MD Allergies, Adverse Reactions, Alerts Substance Reaction Severity [...] 1Admin Note: vis=12/19/2013 2Admin Note: given at [facility] 3Admin Note: vis given 4Admin Note: vix [...] EST, Supply Start Date: 05/07/21 Status: Ordered Toradol Inj 10 mg, Injection, IV Push Slowly, Once, STAT, 11/19/22 20:12:00 EDT, Stop date 11/19/22 20:12:00 EDT Start Date: 11/19/22 Stop Date: 11/19/22 Status: Completed VESIcare 5 mg oral tablet 1 tablet [...] Active 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, f/u normal, followed by [facility] Confirmed Active Respiratory failure, chronic - [facility] admit 06/2019, diaphram dysfunction/ , 2L O2 Confirmed Active Right foot pain Confirmed Active Foot-drop Confirmed Active Bilateral foot-drop Confirmed Active Herpes genitalis Confirmed Active Uxydycs-Vfsgr-Ffbxo syndrome Confirmed Active IgA nephropathy Confirmed Active Obesity Confirmed Active Obstructive sleep apnea syndrome Confirmed Active Overactive bladder Confirmed Active Coccydynia Confirmed Active *[facility]/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 Melchor, 02/07 Vital Signs Most recent to oldest [Reference Range]: 1 2 3 Height 163 cm (11/19/22 11:27 PM) 163 cm (11/19/22 8:32 PM) 163 cm (11/19/22 4:23 PM) Weight 114.2 kg (11/19/22 11:27 PM) 114.2 kg (11/19/22 8:32 PM) 114.2 kg (11/19/22 4:23 PM) Oxygen Saturation [94-100 %] 95 % (11/19/22 11:27 PM) 95 % (11/19/22 8:32 PM) 96 % (11/19/22 4:23 PM) Pulse Rate [55-90 bpm] 87 bpm (11/19/22 11:27 PM) 95 bpm *H* (11/19/22 8:32 PM) 102 bpm *H* (11/19/22 4:23 PM) Body Mass Index [18.5-24.99 kg/m2] 42.98 kg/m2 *>HHI* (11/19/22 11:27 PM) 42.98 kg/m2 *>HHI* (11/19/22 8:32 PM) Blood Pressure [90-138/55-84 mm Hg] 118/70mm Hg (11/19/22 11:27 PM) 121/77mm Hg (11/19/22 8:32 PM) 146/75mm Hg *H* (11/19/22:23 PM) Respiratory Rate [16-30 br/min] 17 br/min (11/19/22 11:27 PM) 17 br/min (11/19/22 10:09 PM) 16 br/min (11/19/22 8:32 PM) Temperature [96.8-100.4 DegF] 98.0 DegF (11/19/22 4:23 PM) Mode of Delivery (Oxygen) Room air (11/19/22 11:27 PM) Room air (11/19/22 8:32 PM) Room air (11/19/22 4:23 PM) Blood pressure sites Arm, left (11/19/22 11:27 PM) Arm, left (11/19/22 8:32 PM) Temperature Route Temporal (11/19/22 4:23 PM) Dry Weight 114.2 kg (11/19/22 11:27 PM) 114.2 kg (11/19/22 8:32 PM) 114.2 kg (11/19/22 4:23 PM) Weight Obtained Via Standing scale (11/19/22 4:23 PM) Dry Weight Obtained Via Standing scale (11/19/22 4:23 PM) Social History Social History Type Response Smoking Status Never smoker; Type: Cigarettes entered on: 07/31/14 Sex Note * Jose VALENZUELA, Andre Field: PERFORM Event Display: Patient Education Leaflets Authored Date: [id number] Headache, Unspecified ?? [id number] Headache, Unspecified A number of things can cause headaches. The cause of your headache isn???t clear. But it doesn???t seem to be a sign of any serious illness. Headache affects almost everyone at some time. It's the most common reason people miss days from work or school. A physical and nervous system exam can help rule out any serious causes of headache. Sometimes you may need more testing. This could include blood work or imaging tests of the head, such as a CAT scan or MRI. You could have a tension headache or a migraine headache. Stress can cause a tension headache. This can happen if you tense the muscles of your shoulders, neck, and scalp without knowing it. If this stress lasts long enough, you may develop a tension headache. It's not clear why migraines occur, but certain things called triggers can raise the risk of havinga migraine attack. Migraine triggers may include emotional stress or depression, or by hormone changes during the menstrual cycle. Other triggers include control pills and other medicines, alcohol or caffeine, foods with tyramine, such as aged cheese or wine, eyestrain, weather changes, missed meals, and lack of sleep or oversleeping. Other causes of headache include: ??? Viral illness with high fever ??? Head injury with concussion ??? Sinus, ear, or throat infection ??? Dental pain and jaw joint (TMJ) pain More serious but less common causes of headache include stroke, brain hemorrhage, brain tumor, meningitis, and encephalitis. Home care Follow these tips when taking care of yourself at home: ??? Don???t drive yourself home if you weregiven pain medicine for your headache. Instead, have someone else drive you home. Try to sleep whenyou get home. You should feel much better when you wake up. ??? Apply heat to the back of your neckto ease a neck muscle spasm. Take care of a migraine headache by putting an ice pack on your forehead or at the base of your skull. ??? If you have nausea or vomiting, eat a light diet until your headache eases. ??? If you have a migraine headache, use sunglasses when in the daylight or around bright indoor lighting until your symptoms get better. Bright glaring light can make this type of headache worse. ?? Follow-up care Follow up with your healthcare provider, or as advised. Talk with your provider if you have frequent headaches. They can help figure out a treatment plan. By knowing the earliest signs of headache, and starting treatment right away, you may be able to stop the pain yourself. ?? When to get medical advice Call your healthcare provider right away??if any of the following occur: ??? Your head pain suddenly gets worse after sexual intercourse or strenuous activity ??? Your head pain doesn???t get better within 24 hours ??? You have new symptoms ??? You aren???t able to keep liquids down (repeated vomiting) ??? Fever of 100.4??F (38??C) or higher, or as directed by your healthcare provider ??? Stiff neck ??? Extreme drowsiness, confusion, or fainting ??? Dizziness or dizziness with spinning sensation (vertigo) ??? Weakness in an arm or leg or one side of your face ??? You have trouble talking or seeing ?? Last Reviewed Date: 2022 ?? [id number] [employer]. All rights reserved. This information is not intended as a substitute for professional medical care. Always follow your healthcare professional's instructions. ?? Patient Care team information Care Team Personnel Name: Elian Todd MD Position: [facility] Renal MD Member Role: Lifetime Consulting Physician Address: Address: [address] [place] [address], [address] [place] [address]- [place] Name: Shakira Padron NP Position: Reference Physician Member Role: Primary Care Nurse Address: Address: [address] [address]- [place] Name: Jayshree Mishra MD Position: [facility] Physician - Primary Care Member Role: PCP Address: Address: [address] [facility] [place] [address]- [place] Name: Katty Castorena Position: [facility] ED OA Member Role: Patient Care Provider Name: Jose VALENZUELA, Andre Field Position: [facility] Resident Member Role: Admitting Physician Address: Address: [address] [place] [address]- Name: Lisette SULLIVAN, Phong Britton Position: [facility] ED RN W/OE and Tasks Member Role: Patient Care Provider Care Team Related Persons Name: ESTHER SALDIVAR Address: home [address] [place] [id number] Name: JANNA DANIELLESHAR Address: home [address] [place] [address] Name: SABRINA EDMONDSON Address: home [address] [place] [id number]
--- OUTSIDE RECORDS SUMMARY | 2023-03-13 18:07 | XMS_ITS | Continuity of Care Document ---
Author Name Unknown Organization [facility] ter Address [address] [place] [address]- Care Team Providers Care Manager Human Resources Name Role Phone Danica VALENZUELA, Jayshree Mclean Primary Care Physician Encounter [facility] Date(s): 07/30/22 - 07/30/[address] [address]- Encounter Diagnosis Back pain(Final) - 07/30/22 Discharge Disposition: A-D/C Home Attending Physician: Sydnie Aleman MD Admitting Physician: Sydnie Aleman MD Referring Physician: Not on Staff, Referring MD [...] 1Admin Note: vis=12/19/2013 2Admin Note: given at [facility] 3Admin Note: vis given 4Admin Note: vix [...] 11 Refills, Maintenance, 04/28/22 20:25:00 EST, Tablet, [facility]/pharmacy #[id number], Partial fill upon patient request [...] Active 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, f/u normal, followed by [facility]AU[facility] CHIEF Confirmed Active Respiratory failure, chronic - [facility] admit 06/2019, diaphram dysfunction/ , 2L O2 Confirmed Active Right foot pain Confirmed Active Foot-drop Confirmed Active Bilateral foot-drop Confirmed Active Herpes genitalis Confirmed Active Rwtkbro-Lujfs-Zliiw syndrome Confirmed Active IgA nephropathy Confirmed Active Obesity Confirmed Active Obstructive sleep apnea syndrome Confirmed Active Overactive bladder Confirmed Active Coccydynia Confirmed Active [facility]N/[facility]/CC-Mariela [id number] Health Assisted, Active Care Coordination Confirmed Active PCOS (polycystic ovarian syndrome) Confirmed Active Posttraumatic Stress Disorder Confirmed 07/31/10 Active Mild recurrent major depression Confirmed Active Tracheostomy Confirmed Active Tracheostomy in place Confirmed Active Urinary urgency Confirmed Active Vocal cord paralysis - CPAP for sleep Confirmed Active 1Otherwise normal colonoscopy by Dr. Melchor, 02/07 Results Radiology Reports * Exam Date Time Procedure Performing Provider Status 07/30/22 3:21 PM Thoracic Spine 3 Views Isaac Maza ; Hilary (Verified) Notes: (Thoracic Spine 3 Views) Reason For Exam: With Pain;Trauma RESULT: Thoracic Spine 3 Views Thoracic Spine 3 Views HX OF PRESENT ILLNESS: pain between shoulder blades x 1 wk now under lt rib area; Reason: Trauma; With Pain; Clinical Question(s): Fracture Dislocation COMPARISON: None. FINDINGS: No bone lesions or fractures. Normal disc configuration. Tracheostomy in place. Linear atelectasis or scarring at the lung bases. IMPRESSION: No acute abnormality. WSN: [id number] Ordering Physician: Gisele Melgar Dictated By: Maximus Griffith MD Dictated Date/Time: 07/30/22 4:19 pm Reviewed By: Maximus Griffith MD Signed By: Maximus Griffith MD Signed Date/Time: 07/30/22 4:19 pm Transcribed By: GET Transcribed Date/Time: 07/30/22 4:18 pm * Exam Date Time Procedure Performing Provider Status 07/30/22 3:21 PM Chest 2 Views Frontal and Lat Link IsaacLeni Richard (Verified) Notes: (Chest 2 Views Frontal and Lat) Reason For Exam: Chest Pain;Other: RESULT: Chest 2 Views Frontal and Lat Chest 2 Views Frontal and Lat Hx of Present Illness: pain between shoulder blades x 1 wk now under lt rib area; Reason: Other:; Chest Pain; Clinical Question(s): Other: COMPARISON: 11/28/2021. FINDINGS: LINES AND TUBES: There is a tracheostomy tube in place. LUNGS AND PLEURA: Linear atelectasis at the lung bases. Normal pulmonary vascularity. No pleural effusion. No pneumothorax. HEART, MEDIASTINUM AND TAHIR: Heart is normal in size. Normal mediastinal and hilar contour. BONES AND SOFT TISSUES: No acute abnormality. IMPRESSION: Linear atelectasis at the lung bases. WSN: [id number] Ordering Physician: Gisele Melgar Dictated By: Yesenia Petty MD Dictated Date/Time: 07/30/22 3:29 pm Reviewed By: Yesenia Petty MD Signed By: Yesenia Petty MD Signed Date/Time: 07/30/22 3:29 pm Transcribed By: GET Transcribed Date/Time: 07/30/22 3:27 pm Vital Signs Most recent to oldest [Reference Range]: 1 2 3 Height 163 cm (07/30/22 6:29 PM) 163 cm (07/30/22 2:28 PM) 163 cm (07/30/22 11:06 AM) Weight 108.1 kg (07/30/22 6:29 PM) 108.1 kg (07/30/22 2:28 PM) 108.1 kg (07/30/22 11:06 AM) Oxygen Saturation [94-100 %] 100 % (07/30/22 6:29 PM) 98 % (07/30/22 2:28 PM) 97 % (07/30/22 10:03 AM) Pulse Rate [55-90 bpm] 76 bpm (07/30/22 6:29 PM) 80 bpm (07/30/22 2:28 PM) 80 bpm (07/30/22 10:03 AM) Body Mass Index [18.5-24.99 kg/m2] 40.69 kg/m2 *>HHI* (07/30/22 6:29 PM) 40.69 kg/m2 *>HHI* (07/30/22 2:28 PM) 40.69 kg/m2 *>HHI* (07/30/22 10:03 AM) Blood Pressure [90-138/55-84 mm Hg] 105/66mm Hg (07/30/22 6:29 PM) 110/56mm Hg (07/30/22 2:28 PM) 130/61mm Hg (07/30/22 10:03 AM) Respiratory Rate [16-30 br/min] 16 br/min (07/30/22 6:29 PM) 18 br/min (07/30/22 2:28 PM) 18 br/min (07/30/22 10:03 AM) Temperature [96.8-100.4 DegF] 98.9 DegF (07/30/22 6:29 PM) 98.8 DegF (07/30/22 10:03 AM) Liters per Minute 0 L/min (07/30/22 10:03 AM) Mode of Delivery (Oxygen) Room air (07/30/22 6:29 PM) Room air (07/30/22 2:28 PM) Room air (07/30/22 10:03 AM) Blood pressure sites Arm, left (07/30/22 6:29 PM) Arm, left (07/30/22 2:28 PM) Arm, right (07/30/22 10:03 AM) Temperature Route Oral (07/30/22 6:29 PM) Oral (07/30/22 2:28 PM) Oral (07/30/22 10:03 AM) Dry Weight 108.1 kg (07/30/22 6:29 PM) 108.1 kg (07/30/22 2:28 PM) 108.1 kg (07/30/22 11:06 AM) Weight Obtained Via Standing scale (07/30/22 10:03 AM) Dry Weight Obtained Via Standing scale (07/30/22 10:03 AM) Social History Social History Type Response Smoking Status Never smoker; Type: Cigarettes entered on: 07/31/14 Sex Note * Sydnie Aleman MD: PERFORM Event Display: Patient Education Leaflets Authored Date: [id number] Back Pain (Acute or Chronic) ?? [id number] Back Pain (Acute or Chronic) Back pain is one of the most common problems. The good news is that most people feel better in 1 to2 weeks, and most of the rest in 1 to 2 months. Most people can remain active. People who have pain??describe it differently???not??everyone is the same. ??? The pain can be sharp, stabbing, shooting, aching, cramping or burning. ??? Movement, standing,bending, lifting, sitting, or walking may worsen pain. ??? It can be limited to one spot or area, or it can be more generalized. ??? It can spread upwards, to the front, or go down your arms or legs (sciatica). ??? It can cause muscle spasm. Most of the time, mechanical problems with the muscles??or spine cause the pain. Mechanical problems??are usually caused by an injury to the muscles or ligaments. Illness can cause back pain, but it's usually not caused by a serious illness. Mechanical problems include:? Physical activity such as sports, exercise, work, or normal activity ??? Overexertion, lifting,pushing, pulling incorrectly or too aggressively ??? Sudden twisting, bending, or stretching from an accident, or accidental movement ??? Poor posture ??? Stretching or moving wrong, without noticingpain at the time ??? Poor coordination, lack of regular exercise (check with your doctor about this) ??? Spinal disc disease or arthritis ??? Stress Pain can also be related to , or illness such as appendicitis, bladder or kidney infections, kidney stones, and pelvic infections. Acute back pain usually gets better in??1 to 2 weeks. Back pain related to disk disease, arthritis in the spinal joints, or narrowing of the spinal canal (spinal stenosis) can become chronic and lastfor months or years. Unless you had a physical injury such as a car accident or fall, X-rays are usually not needed for the first assessment of back pain. If pain continues and does not respond to medical treatment, you may need X-rays and other tests. Home care Try this home care advice: ??? When in bed, try??to find a position of comfort. A firm mattress is best. Try lying flat on your back with pillows under your knees. You can also try lying on your side with your knees bent up toward your chest and a pillow between your knees. ??? At first, don't try to stretch out the sore spots. If there is a strain, it's not like the good soreness you get after exercising without an injury. In this case, stretching may make it worse. ??? Don't sit for long periods, as in a long car ride or during other??travel. This puts more stress on the lower back than standing or walking. ??? During the first 24 to 72 hours after an acute injury or flare up of chronic back pain, apply an ice pack to the painful area for 20 minutes and then remove it for 20 minutes. Do this over a period of 60 to 90 minutes or several times a day. This will reduce swelling and pain. Wrap the ice pack in a thintowel or plastic to protect your skin. ??? You can start with ice, then switch to heat. Heat (hot shower, hot bath, or heating pad) reduces pain and works well for muscle spasms. Heat can be applied to the painful area for 20 minutes then remove it for 20 minutes. Do this over a period of 60 to 90 minutes or several times a day. Don't sleep on a heating pad. It can lead to skin collado or tissue damage. ??? You can alternate ice and heat therapy. Talk with your doctor about??the best treatment for your back pain. ??? Therapeutic massage can help relax the back muscles without stretching them. ??? Be aware of safe lifting methods. Don't lift anything without stretching first. Medicines Talk to your doctor before using medicine, especially if you have other medical problems or are taking other medicines. ??? You may use ixuv-cue-vzvhygx medicine as directed on the bottle to control pain, unless another pain medicine was prescribed. Talk with your healthcare provider before using these medicines if you have chronic conditions such as diabetes, liver or kidney disease, stomach ulcers, or digestive bleeding. Also talk with your provider if you take blood thinners. ??? Be careful if you are given a prescription medicines, narcotics, or medicine for muscle spasms. They can cause drowsiness, affect your coordination, reflexes, and judgment. Don't drive or operate heavy machinery. ?? Follow-up care Follow up with your healthcare provider, or as advised.?? If X-rays were taken, you will be told of any new findings that may affect your care. ?? Call 911 Call 911 if any of the following occur: ??? Trouble breathing ??? Confusion ??? Very drowsy or trouble awakening ??? Fainting or loss of consciousness ??? Rapid or very slow heart rate ??? Loss of bowel or bladder control ?? When to seek medical advice Call your healthcare provider right away if any of these occur:? Pain gets worse or spreads toyour legs ??? Your bowel or bladder control changes ??? Fever ??? Blood in your urine ??? Weakness or numbness in one or both legs ??? Numbness in the groin or genital area ?? Last Reviewed Date: 2021 ?? [id number] [employer]. All rights reserved. This information is not intended as a substitute for professional medical care. Always follow your healthcare professional's instructions. ?? * Azalea , CIS S: Yesenia Ferguson MD: VERIFY Event Display: Result: Authored Date: [id number] Chest 2 Views Frontal and Lat Hx of Present Illness: pain between shoulder blades x 1 wk now under lt rib area; Reason: Other:; Chest Pain; Clinical Question(s): Other: COMPARISON: 11/28/2021. FINDINGS: LINES AND TUBES: There is a tracheostomy tube in place. LUNGS AND PLEURA: Linear atelectasis at the lung bases. Normal pulmonary vascularity. No pleural effusion. No pneumothorax. HEART, MEDIASTINUM AND TAHIR: Heart is normal in size. Normal mediastinal and hilar contour. BONES AND SOFT TISSUES: No acute abnormality. IMPRESSION: Linear atelectasis at the lung bases. WSN: [id number] Ordering Physician: Gisele Melgar Dictated By: Yesenia Petty MD Dictated Date/Time: 07/30/22 3:29 pm Reviewed By: Yesenia Petty MD Signed By: Yesenia Petty MD Signed Date/Time: 07/30/22 3:29 pm Transcribed By: GET Transcribed Date/Time: 07/30/22 3:27 pm XR Thoracic spine 3 Views * Azalea , CIS S: TRANSCRIBE Maximus Griffith MD: VERIFY Event Display: Result: Authored Date: [id number] Thoracic Spine 3 Views HX OF PRESENT ILLNESS: pain between shoulder blades x 1 wk now under lt rib area; Reason: Trauma; With Pain; Clinical Question(s): Fracture Dislocation COMPARISON: None. FINDINGS: No bone lesions or fractures. Normal disc configuration. Tracheostomy in place. Linear atelectasis or scarring at the lung bases. IMPRESSION: No acute abnormality. WSN: [id number] Ordering Physician: Gisele Melgar Dictated By: Maximus Griffith MD Dictated Date/Time: 07/30/22 4:19 pm Reviewed By: Maximus Griffith MD Signed By: Maximus Griffith MD Signed Date/Time: 07/30/22 4:19 pm Transcribed By: GET Transcribed Date/Time: 07/30/22 4:18 pm Patient Care team information Care Team Personnel Name: Elian Todd MD Position: [facility] Physician (General Medicine) Member Role: Lifetime Consulting Physician Address: Address: [address] [place] [address], [address] Name: Shakira Padron NP Position: Reference Physician Member Role: Primary Care Nurse Address: Address: [address] [place] [address] Name: Jayshree Mishra MD Position: [facility] Primary Care Physician Member Role: PCP Address: Address: [address] [place] [address] Name: *[facility], ED Attending Position: [facility] ED Attendings Patient Name: Scot Zapata Position: [facility] ED TA [facility] Member Role: Patient Care Provider Name: Sydnie Aleman MD Position: [facility] ED Medicine MD Member Role: Admitting Physician Address: Address: [address] [place] [address] Name: Sujata Franklin RN Position: [facility] ED RN W/OE and Tasks Member Role: Patient Care Provider Care Team Related Persons Name: SALDIVAR DANIELLESHAR Address: home [address] [place] [address] Name: ESTHER SALDIVAR Address: home [address] [place] [address] Name: SABRINA EDMONDSON Address: home [address] [place] [address]
--- OUTSIDE RECORDS SUMMARY | 2023-03-13 18:07 | XMS_ITS | Continuity of Care Document ---
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 Name Role Phone Danica VALENZUELA, Jayshree Mclean Primary Care Physician [facility]/23 - 02/19/23 [facility] [address] [place], [place] [address] Allergies, Adverse Reactions, Alerts Substance Reaction Severity [...] 1Admin Note: vis=12/19/2013 2Admin Note: given at [facility] [place] 3Admin Note: vis given 4Admin Note: vix 11/24/07 5Admin Note: VIS 06/04/06 6Admin Note: GARDASIL #1 7Admin Note: oral 8Admin Note: oral 9Admin Note: oral 10Admin Note: oral Medications Adult Incontinence Liners Adult Incontinence Liners, See Instructions, # 180 each, Refills 11, Tot. Refills 11, Maintenance, Use Up To 6/Day Use As Indicated Dx: Charcot-Shantlel Tooth Syndrome (G60); Obesity (E66.9); Urge Incontinence [...] Active 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, f/u normal, followed by TUB RIDER Confirmed Active Respiratory failure, chronic - [facility] admit 06/2019, diaphram dysfunction/ , 2L O2 Confirmed Active Right foot pain Confirmed Active Foot-drop Confirmed Active Bilateral foot-drop Confirmed Active Herpes genitalis Confirmed Active Annjxwv-Shxjn-Ipcqy syndrome Confirmed Active IgA nephropathy Confirmed Active Obesity Confirmed Active Obstructive sleep apnea syndrome Confirmed Active Overactive bladder Confirmed Active Coccydynia Confirmed Active *[facility]N/[facility]/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-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 [phone] /Health residential, active care coordination Confirmed Active PCOS (polycystic [...] Team Personnel Name: Elian Todd MD Position: [facility] Renal MD Member Role: Lifetime Consulting Physician Address: Address: [address] [place] [address], [facility] [address] [place] [address]- Name: Shakira Padron NP Position: Reference Physician Member Role: Primary Care Nurse Address: Address: [address] [place] [address]- Name: Jayshree Mishra MD Position: [facility] Physician - Primary Care Member Role: PCP Address: Address: [address] Adult [place], [place] [address] Care Team Related Persons Name: ESTHER SALDIVAR Address: home [address] [place] [address] Name: SALDIVAR SHANNONKEERTHI Address: [address] Address: [address] Name: SABRINA ED[place]ON Address: [place] [address]
--- OUTSIDE RECORDS SUMMARY | 2023-03-13 18:07 | XMS_ITS | Continuity of Care Document ---
Author Name Unknown Organization [facility] Address [address] [place] [address]- Care Team Providers Care Bricklayer Apprentice Name Role Phone Jayshree Mishra MD Primary Care Physician [phone] [facility]counter [facility](s): 12/29/22 - 01/28/23 [facility] [address] [place] [address]- Allergies, Adverse Reactions, Alerts Substance Reaction Severity [...] Note: vis=12/19/2013 2Admin Note: [place] [facility] [place] Note: vis given 4Admin Note: vix [...] Active 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, f/u normal, followed by MULTIPLE EFFECT EVAPORATOR OPERATOR Confirmed Active Respiratory failure, chronic - [facility] admit 06/2019, diaphram dysfunction/ , 2L O2 Confirmed Active Right foot pain Confirmed Active Foot-drop Confirmed Active Bilateral foot-drop Confirmed Active Herpes genitalis Confirmed Active Ppyvcbf-Bylso-Thppl syndrome Confirmed Active IgA nephropathy Confirmed Active Obesity Confirmed Active Obstructive sleep apnea syndrome Confirmed Active Overactive bladder Confirmed Active Coccydynia Confirmed Active *[facility]N/[facility]/Beveling Machine Operator-Kalyani [phone] /Health [facility], active care coordination Confirmed Active PCOS (polycystic [...] Care team information Care Team Personnel Name: Perez VALENZUELA, Elian Fletcher Position: [facility] Renal MD Member Role: Lifetime Consulting Physician Address: Address: [address] [place] [address], [address] [place] [address]- Name: Shakira Padron NP Position: Reference Physician Member Role: Primary Care Nurse Address: Address: [address] [place] [address]- Name: Jayshree Mishra MD Position: [facility] Physician - Primary Care Member Role: PCP Address: Address: [address] [place] [address] [place] [address]- Care Team Related Persons Name: ESTHER SALDIVAR Address: [address] Address: home [address] [place] [address] [place] Name: ESTHER SALDIVAR Address: home [address] [place] [address] Name: SABRINA EDMONDSON Address: [address] [address]
--- OUTSIDE RECORDS SUMMARY | 2023-03-13 18:07 | XMS_ITS | Continuity of Care Document ---
Author Name Unknown Organization [facility] Address [address] [place] [address]- Care Team Providers Care Senior Research Fellow Name Role Phone Jayshree Mishra MD Primary Care Physician [facility](s): 03/30/22 - 04/29/22 [facility] [address] [place], [place] [address] Allergies, Adverse Reactions, Alerts Substance Reaction [...] 1Admin Note: vis=12/19/2013 2Admin Note: given at [facility] [place] 3Admin Note: vis [...] Active 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, f/u normal, followed by HEAVY EQUIPMENT MECHANIC Confirmed Active Respiratory failure, chronic - [facility] admit 06/2019, diaphram dysfunction/ , 2L O2 Confirmed Active Right foot pain Confirmed Active Foot-drop Confirmed Active Bilateral foot-drop Confirmed Active Herpes genitalis Confirmed Active Jvhhfse-Drvxp-Tcoqt syndrome Confirmed Active IgA nephropathy Confirmed Active Obese class II Confirmed Active Obesity Confirmed Active Obstructive sleep apnea syndrome Confirmed Active Overactive bladder Confirmed Active Coccydynia Confirmed Active BHN/[facility]/CC-Mariela MchughGnioylx-[phone] Health Jail, Active Care Coordination Confirmed Active PCOS (polycystic [...] Member Role: Lifetime Consulting Physician Address: Address: [address] [place] [address], [address] [place] [address]- Name: Shakira Padron NP Position: Reference Physician Member Role: Primary Care Nurse Address: Address: [address] [place] [address]- Name: Jayshree Mishra MD Position: [facility] Primary Care Physician Member Role: PCP Address: Address: [address] [place] [address], -[facility] [place] [address]- Care Team Related Persons Name: ESTHER SALDIVAR Address: home [address] [place] [address] Name: ESTHER SALDIVAR Address: home [address] [place] [address] Name: SABRINA EDMONDSON Address: home [address] [place] [address]
--- OUTSIDE RECORDS SUMMARY | 2023-03-13 18:07 | XMS_ITS | Continuity of Care Document ---
Author Name Unknown Organization [facility] Address [address] [place] [address]- Care Team Providers Care Consumer Lending Manager Name Role Phone Jayshree Mishra MD Primary Care Physician [facility]counter [facility](s): 04/28/22 - 05/28/22 [facility] [address] [place], [place] [address] Allergies, Adverse Reactions, Alerts Substance Reaction [...] Note: vis=12/19/2013 2Admin [place]: [place] [facility] [place]Admin Note: vis given 4Admin Note: vix [...] Active 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, f/u normal, followed by BONDACTOR MACHINE OPERATOR Confirmed Active Respiratory failure, chronic - [facility] admit 06/2019, diaphram dysfunction/ , 2L O2 Confirmed Active Right foot pain Confirmed Active Foot-drop Confirmed Active Bilateral foot-drop Confirmed Active Herpes genitalis Confirmed Active Yyjfdbt-Svmgk-Buwwu syndrome Confirmed Active IgA nephropathy Confirmed Active Obese class II Confirmed Active Obesity Confirmed Active Obstructive sleep apnea syndrome Confirmed Active Overactive bladder Confirmed Active Coccydynia Confirmed Active BHN/[facility]/CC-Mariela MchughCayltgq-[phone] Health Alf, Active Care Coordination Confirmed Active PCOS (polycystic [...] Team Personnel Name: Elian Todd MD Position: [facility] Physician (General Medicine) Member Role: Lifetime Consulting Physician Address: Address: [address] [place] [address], [address] [place] [address]- Name: Shakira Padron NP Position: Reference Physician Member Role: Primary Care Nurse Address: Address: [address] [place] [address]- Name: Jayshree Mishra MD Position: [facility] Primary Care Physician Member Role: PCP Address: Address: [address] [place] [address], -[facility] [place] [address]- Care Team Related Persons Name: ESTHER SALDIVAR Address: home [address] [place] [address] Name: ESTHER SALDIVAR Address: home [address] [place] [address] Name: SABRINA EDMONDSON Address: home [address] [place] [address]
--- OUTSIDE RECORDS SUMMARY | 2023-03-13 18:08 | XMS_ITS | Continuity of Care Document ---
Author Name Unknown Organization [facility] Address [address] [place] [address]- Care Team Providers Care Survey Compiler Name Role Phone Jayshree Mishra MD Primary Care Physician [facility](s): 07/31/22 - 08/30/22 [facility] [address] [place] [address] Attending Physician: Romario Ashton Admitting Physician: AdmtrRomario Referring Physician: AdmtrRomario Allergies, Adverse Reactions, Alerts Substance Reaction Severity [...] 1Admin Note: vis=12/19/2013 2Admin Note: [place] [facility] 3Admin Note: vis given 4Admin Note: vix [...] Active 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, f/u normal, followed by MANAGER ETL Confirmed Active Respiratory failure, chronic - [facility] admit 06/2019, diaphram dysfunction/ , 2L O2 Confirmed Active Right foot pain Confirmed Active Foot-drop Confirmed Active Bilateral foot-drop Confirmed Active Herpes genitalis Confirmed Active Oghcrvl-Rumbh-Xtlhv syndrome Confirmed Active IgA nephropathy Confirmed Active Obesity Confirmed Active Obstructive sleep apnea syndrome Confirmed Active Overactive bladder Confirmed Active Coccydynia Confirmed Active N/[facility]-[phone] Health Shelter, Active Care Coordination Confirmed Active PCOS (polycystic [...] Team Personnel Name: Elian Todd MD Position: [facility] Physician (General Medicine) Member Role: Lifetime Consulting Physician Address: Address: [address] [place] [address], [address] [place] [address]- Name: Shakira Padron NP Position: Reference Physician Member Role: Primary Care Nurse Address: Address: [address] [place] [address]- Name: Jayshree Mishra MD Position: [facility] Primary Care Physician Member Role: PCP Address: Address: [address] [place] [address], -[facility] [place] [address]- Care Team Related Persons Name: ESTHER SALDIVAR Address: home [address] [place] [address] Name: ESTHER SALDIVAR Address: home [address] [place] [address] Name: SABRINA EDMONDSON Address: home [address] [place] [address]
--- OUTSIDE RECORDS SUMMARY | 2023-03-13 18:08 | XMS_ITS | Continuity of Care Document ---
Author Name Unknown Organization [facility] Address [address] [place] [address]- Care Team Providers Care Process Development Manager Name Role Phone Danica VALENZUELA, Jayshree Mclean Primary Care Physician [phone] [facility]counter [facility](s): 01/08/23 - 02/10/23 [facility] [address] [place], [place] [address] Attending Physician: Corey Butterfield MD Admitting Physician: Corey Butterfield MD Allergies, Adverse Reactions, Alerts Substance Reaction [...] 1Admin Note: vis=12/19/2013 2Admin Note: [place] [facility] [place] 3Admin Note: vis given [...] Active 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, f/u normal, followed by DIRECTOR OF CONSUMER MARKETING Confirmed Active Respiratory failure, chronic - [facility] admit 06/2019, diaphram dysfunction/ , 2L O2 Confirmed Active Right foot pain Confirmed Active Foot-drop Confirmed Active Bilateral foot-drop Confirmed Active Herpes genitalis Confirmed Active Dnosuoj-Vcyia-Fhfbr syndrome Confirmed Active IgA nephropathy Confirmed Active Obesity Confirmed Active Obstructive sleep apnea syndrome Confirmed Active Overactive bladder Confirmed Active Coccydynia Confirmed Active *[facility]N/[facility]/Knife Changer-Kalyani Null-[phone] /Health penitentiary, active care coordination Confirmed Active PCOS (polycystic [...] Personnel Name: Perez VALENZUELA, Elian Fletcher Position: [facility] Renal MD Member Role: Lifetime Consulting Physician Address: Address: [address] [place] [address], [facility] [address] [place] [address]- Name: Shakira Padron NP Position: Reference Physician Member Role: Primary Care Nurse Address: Address: [address] [place] [address]- Name: Jayshree Mishra MD Position: [facility] Physician - Primary Care Member Role: PCP Address: Address: [address] [place] [address] [place] [address]- [place] Care Team Related Persons Name: ESTHER SALDIVAR Address: [address] Address: home [address] [place] [address] [place] Name: ESTHER SALDIVAR Address: home [address] [place] [address] Name: SABRINA EDMONDSON Address: home [address] [place] [address]
--- OUTSIDE RECORDS SUMMARY | 2023-03-13 18:08 | XMS_ITS | Continuity of Care Document ---
Author Name Unknown Organization [facility] Address [address] [place] [address]- Care Team Providers Care Tractor Trailer Truck Driver Name Role Phone Danica VALENZUELA, Jayshree Mclean Primary Care Physician [facility]counter [facility](s): 01/20/23 - 02/19/23 [facility] [address] [place], [place] [address] Allergies, Adverse Reactions, Alerts Substance [...] Note: vis=12/19/2013 2Admin Note: given at [facility] [place] 3Admin Note: vis [...] Active 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, f/u normal, followed by CYCLE ANALYST Confirmed Active Respiratory failure, chronic - [facility] admit 06/2019, diaphram dysfunction/ , 2L O2 Confirmed Active Right foot pain Confirmed Active Foot-drop Confirmed Active Bilateral foot-drop Confirmed Active Herpes genitalis Confirmed Active Wtqosro-Fiusp-Sqxjy syndrome Confirmed Active IgA nephropathy Confirmed Active Obesity Confirmed Active Obstructive sleep apnea syndrome Confirmed Active Overactive bladder Confirmed Active Coccydynia Confirmed Active *[facility]/Addictions Recovery Specialist-Kalyani Null-[phone] /Health intermediate, active care coordination Confirmed Active PCOS (polycystic [...] team information Care Team Personnel Name: Elian Tdod MD [facility] Renal MD Member Role: Lifetime Consulting Physician Address: Address: [address] [place] [address], [facility] [address] [place] [address]- Name: Shakira Padron NP Position: Reference Physician Member Role: Primary Care Nurse Address: Address: [address] [place] [address]- Name: Jayshree Mishra MD [facility] Physician - Primary Care Member Role: PCP Address: Address: [address] [facility] Adult [place], [place] [address] Care Team Related Persons Name: ESTHER SALDIVAR Address: [address] Address: [address] Name: ESTHER SALDIVAR Address: home [address] [place] [address] Name: SABRINA EDMONDSON Address: home [address] [place] [address]
--- OUTSIDE RECORDS SUMMARY | 2023-03-13 18:08 | XMS_ITS | Continuity of Care Document ---
Author Name Unknown Organization [facility] Address [address] [place] [address]- Care Team Providers Care Harvest Field Ticketer Name Role Phone Jayshree Mishra MD Primary Care Physician [facility] 11/26/22 - 01/24/23 [facility] [address] [place], [place] [address] Attending Physician: Not on Staff, Attending MD Allergies, Adverse Reactions, Alerts Substance Reaction [...] 1Admin Note: vis=12/19/2013 2Admin Note: given at [facility] [place] 3Admin Note: vis given 4Admin Note: vix [...] Active 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, f/u normal, followed by CORPORATE EVENTS DIRECTOR Confirmed Active Respiratory failure, chronic - [facility] admit 06/2019, diaphram dysfunction/ , 2L O2 Confirmed Active Right foot pain Confirmed Active Foot-drop Confirmed Active Bilateral foot-drop Confirmed Active Herpes genitalis Confirmed Active Nasnbvx-Avbzj-Gewaw syndrome Confirmed Active IgA nephropathy Confirmed Active Obesity Confirmed Active Obstructive sleep apnea syndrome Confirmed Active Overactive bladder Confirmed Active Coccydynia Confirmed Active *[facility]N/[facility]/Lead Technologist In Cytogenetics-Kalyani Null-[phone] /Health half-way, active care coordination Confirmed Active PCOS (polycystic [...] Personnel Name: Perez VALENZUELA, Elian Fletcher Position: [facility] Renal MD Member Role: Lifetime Consulting Physician Address: Address: [address] [place] [address], [address] [place] [address]- Name: Shakira Padron NP Position: Reference Physician Member Role: Primary Care Nurse Address: Address: [address] [place] [address]- [place] Name: Jayshree Mishra MD Position: [facility] Physician - Primary Care Member Role: PCP Address: Address: [address] [place] [address] [place] [address]- Care Team Related Persons Name: ESTHER SALDIVAR Address: home [address] [place] [address] Name: ESTHER SALDIVAR Address: [address] Address: home [address] [place] [address] [place] Name: SABRINA EDMONDSON Address: [address] [address]
--- OUTSIDE RECORDS SUMMARY | 2023-03-13 18:08 | XMS_ITS | Patient Health Record ---
Author Name Unknown Organization [address] [facility] Address [address] [facility] [address] [place] [address] Care Team Providers Care Keyboard Specialist Name Role Phone MICHELINE FARRIS Unavailable [phone] BOUCHERFATOUMATA DING Unavailable [phone] KAE CALIX Unavailable [phone] ALLERGIES Allergen (clinical drug ingredient) Drug/Non Drug Allergy documented on EMR Reaction Allergy Type Onset Date Status prednisone Prednisone Unknown Drug Allergy Activ e RESULTS Component Value Reference Range Notes INSULIN Reviewed date:01/18/2023 07:53:10 AM Interpretation: Performing Lab:NL[facility], [facility] [place] Ro Notes/Report: FASTING: YES FASTING:YES INSULIN 13.1 Reference Range < or = 18.4 Risk: Optimal < or = 18.4 Moderate NA High >18.4 Adult cardiovascular event risk category cut points (optimal, moderate, high) are based on Insulin Reference Interval studies performed at [facility] in 2021. HEMOGLOBIN A1c Reviewed date:01/18/2023 07:53:10 AM Interpretation: Performing Lab:[facility], [facility] M[place] Ro Notes/Report: FASTING:YES FASTING: YES HEMOGLOBIN A1c 5.3 <5.7 % of total Hgb For the purpose of screening for the presence of diabetes: <5.7% Consistent with the absence of diabetes 5.7-6.4% Consistent with increased risk for diabetes (prediabetes) > or =6.5% Consistent with diabetes This assay result is consistent with a decreased risk of diabetes. Currently, no consensus exists regarding use of hemoglobin A1c for diagnosis of diabetes in children. According to [place] Diabetes Association (ADA) guidelines, hemoglobin A1c <7.0% represents optimal control in non- diabetic patients. Different metrics may apply to specific patient populations. Standards of Medical Care in Diabetes(ADA). LIPID PANEL, STANDARD Reviewed date:01/18/2023 07:53:54 AM Interpretation: Performing Lab:NL2, [facility] [employer] [id number] [id number] Mookie Ro Notes/Report: FASTING:YES FASTING: YES CHOLESTEROL, TOTAL 177 <200 mg/dL HDL CHOLESTEROL 58 > OR = 50 mg/dL TRIGLYCERIDES 65 <150 mg/dL LDL-CHOLESTEROL 104 Reference range: <100 Desirable range <100 mg/dL for primary prevention; <70 mg/dL for patients with CHD or diabetic patients with > or = 2 CHD risk factors. LDL-C is now calculated using the Keara calculation, which is a validated novel method providing better accuracy than the Friedewald equation in the estimation of LDL-C. Nathaniel SS et al. KELLI. 2013;310(19): 1547-9867 (http://education.happyview.com/faq/VQF053) CHOL/HDLC RATIO 3.1 <5.0 (calc) NON HDL CHOLESTEROL 119 <130 mg/dL (calc) For patients with diabetes plus 1 major ASCVD risk factor, treating to a non-HDL-C goal of <100 mg/dL (LDL-C of <70 mg/dL) is considered a therapeutic option. 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 [address] [place] [address] 03/[facility] [address] [place] [address] 01/14/2023 MICHELINE KALEIGH Other obesity E66.8 ; BMI 40.0-44.9, adult Z68.41 ; Hlvwylm-Phlmo-Tiqzq disease G60.0 ; Tracheostomy dependent Z93.0 ; Encounter for screening for lipoid disorders Z13.220 and Diabetes mellitus screening Z13.1 [facility] [address] [place] [address] 02/11/2023 MICHELINE KALEIGH Other obesity E66.8 ; BMI 40.0-44.9, adult Z68.41 ; Qzcgkyu-Xpvhg-Uxtnu disease G60.0 ; Tracheostomy dependent Z93.0 ; Encounter for screening for lipoid disorders Z13.220 and Diabetes mellitus screening Z13.1 ASSESSMENTS Encounter Date Diagnosis Assessment Notes Treatment Notes Treatment Clinical Notes 01/14/2023 Other obesity (ICD-10 - E66.8) 01/14/2023 BMI 40.0-44.9, adult (ICD-10 - Z68.41) 02/11/2023 Other obesity (ICD-10 - E66.8) 02/11/2023 BMI 40.0-44.9, adult (ICD-10 - Z68.41) 01/14/2023 Wybytgz-Yuehd-Lhhmk disease (ICD-10 - G60.0) 01/14/2023 Tracheostomy dependent (ICD-10 - Z93.0) 02/11/2023 Ryvnequ-Ymrum-Xezty disease (ICD-10 - G60.0) 02/11/2023 Tracheostomy dependent (ICD-10 - Z93.0) 01/14/2023 Encounter for screening for lipoid disorders (ICD-10 - Z13.220) 01/14/2023 Diabetes mellitus screening (ICD-10 - Z13.1) 02/11/2023 Encounter for screening for lipoid disorders (ICD-10 - Z13.220) 02/11/2023 Diabetes mellitus screening (ICD-10 - Z13.1) PLAN OF TREATMENT Next Appt Details Provider Name:MICHELINE FARRIS, 1 05/17/2022 11:30:00 AM, [address], [place], [address], Insurance Providers Payer Name Payer Address Payer Phone Subscriber Number Group Number Insured Name Patient Relationship to Insured Coverage Start Date Coverage End Date [employer] or Options [address] [place] [address] [id number] Jessica Salvador Self - patient is the insured 2 MEDICATIONS ADMINISTERED Medication Instructions Date of Administration Dosage Notes Semaglutide 02/11/2023 0.25 sema 0.25mg Semaglutide 02/17/2023 0.25 mg LOT # [id number] 0.25MG Semaglutide 02/23/2023 0.25 mg lot# [id number] Semaglutide 03/02/2023 lot#[id number] 0.25mg Semaglutide 03/11/2023 0.25 mg LLQ SQ MEDICAL (GENERAL) HISTORY Medical History History ICD Code tracheotomy 2007 charcot dougie tooth,diagnosed at 11 year s old (vocal cords, muscles) IgA nephropathy PCOS Surgical History Surgery Date(Month/Year) tracheotomy c section Hospitalization History Reason Date(Month/Year) c section tracheotomy
--- OUTSIDE RECORDS SUMMARY | 2023-03-13 18:08 | XMS_ITS | Continuity of Care Document ---
Author Name Unknown Organization [facility] Address [address] [place] [address]- Care Team Providers Care Airline Dispatcher Name Role Phone Jayshree Mishra MD Primary Care Physician Encounter [facility] Date(s): 03/30/22 - 05/02/22 [facility] [address] [place], [place] [address] Attending Physician: Jayshree Mishra MD Admitting Physician: Jayshree Mishra MD Referring Physician: Jayshree Mishra MD Allergies, Adverse Reactions, Alerts Substance Reaction [...] 1Admin Note: vis=12/19/2013 2Admin Note: given at [facility] 3Admin Note: vis given 4Admin Note: vix [...] 11 Refills, Maintenance, 04/28/22 20:25:00 EST, Tablet, [facility]/pharmacy #[id number], Partial fill upon patient request [...] Active 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, f/u normal, followed by [employer] Confirmed Active Respiratory failure, chronic - [facility] admit 06/2019, diaphram dysfunction/ , 2L O2 Confirmed Active Right foot pain Confirmed Active Foot-drop Confirmed Active Bilateral foot-drop Confirmed Active Herpes genitalis Confirmed Active Ykfqkuz-Tnqbz-Wajzg syndrome Confirmed Active IgA nephropathy Confirmed Active Obese class II Confirmed Active Obesity Confirmed Active Obstructive sleep apnea syndrome Confirmed Active Overactive bladder Confirmed Active Coccydynia Confirmed Active BHN/ONECARE/CC-Mariela MchughVxqiqpp-[phone] Health Long Term, Active Care Coordination Confirmed Active PCOS (polycystic [...] Team Personnel Name: Elian Todd MD Position: [facility] Physician (General Medicine) Member Role: [employer] Consulting Physician Address: Address: [address] [place] [address], [facility] [address] [place] [address]- Name: Shakira Padron NP Position: Reference Physician Member Role: Primary Care Nurse Address: Address: [address] [place] [address]- Name: Danica VALENZUELA, Jayshree Mclean Position: [facility] Primary Care Physician Member Role: PCP Address: Address: [address] [place] [address], -[facility] [place] [address]- Care Team Related Persons Name: ESTHER SALDIVAR Address: home [address] [place] [address] Name: ESTHER ASLDIVAR Address: home [address] [place] [address] Name: SABRINA EDMONDSON Address: home [address] [place] [id number]
[2023-03-13 18:27] LABS: Influenza A PCR NEGATIVE (Negative); Influenza B PCR NEGATIVE (Negative); Resp Syncy Virus RNA Qual PCR NEGATIVE (Negative); SARS COV2 PCR INHOUSE NEGATIVE (Negative)
[2023-03-13 20:42] VITALS: BP 99/55; PULSE 109; RESP 20; TEMP 36.6; O2SAT 98
== END 2023-03-13 21:16 | disposition home or self-care (01) ==
PROVIDERS: Nurse Practitioner Family; Emergency Provider Student in an Organized Health Care Education/Training Program; PCP Internal Medicine
DX: J06.9 Acute upper respiratory infection, unspecified (principal); R05.9 Cough, unspecified; Z20.822 Contact with and (suspected) exposure to COVID-19; Z20.828 Contact with and (suspected) exposure to other viral communicable diseases
CPT/HCPCS: 0241U; 71046; 87651; 99282; 99283

== ENCOUNTER 2023-05-04 11:22 | Outpatient (REF) | payer OTHER, SELFPAY | END 2023-05-04 11:23 | disposition home or self-care (01) | LOC: HO.XRAY 11:22 | PROVIDERS: Visit Provider Hospitalist | DX: J18.0 Bronchopneumonia, unspecified organism (principal); R05.9 Cough, unspecified; G60.0 Hereditary motor and sensory neuropathy; J45.41 Moderate persistent asthma with (acute) exacerbation; R09.02 Hypoxemia; K21.9 Gastro-esophageal reflux disease without esophagitis; Z93.0 Tracheostomy status | CPT/HCPCS: 71046; 99212 ==

== ENCOUNTER 2023-05-04 13:15 | Outpatient (AMB) | payer OTHER, SELFPAY ==
--- NOTE | 2023-05-04 13:18 | MHC.OFFVIS ---
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 The patient has been noticing since 3 days ago that she is having some chest discomfort. 8/10 in severity. Asthma getting worse. Associated with shortness of breath. Also noticed that she was coughing out some blood. She denies any sick lately like symptoms. Denies any fevers or chills. She came today for an appointment. We did change how her tracheostomy since she could not put the inner cannula back in. However her heart rate went up to 130 and her pulse ox 95%. She is 10 weeks gestation. She needs to be evaluated in the ER this time. We did review her results from when she went to the ER. She did have an elevated white count but otherwise her labs were okay. Her x-ray and her V/Q scan and lower extremity Dopplers were all reasonable. She did follow-up with Ob and had ultrasound baby that seem to be perfect. In the meantime she has been concerned about the albuterol because of the elevated heart rates in the palpitations. Now that she is with to be extremely careful. Therefore in the office we did provide her with Xopenex 1.25 mg which she tolerated significantly better. Therefore, I will send her Xopenex to the pharmacy. She failed albuterol due to the tachyarrhythmias and palpitations especially now . She has felt some palpitations getting worse as well. We did go for brief walking oximetry on room air she became short of breath and her heart rate went up to 130 and pulse ox decreased to 87 %. She was placed on 2 L nasal cannula. Her pulse ox was 98% with activity she felt a lot better on the oxygen. She needs to continue using the oxygen with activity and sleep. She will be following up with OBGYN at [facility] [phone]. She recently was admitted to [facility] for inpatient evaluation for significant hypoxia. Which she was there she had an aspiration event and became low more hypoxic. She was evaluated from a cardiac status in a pulmonary status and all the workup came back relatively negative except for diaphragmatic dysfunction likely worsened by her . The possibility of pulmonary hypertension is a reasonable thought. And because of her increased weight gain and daytime drowsiness with an elevated [place] score she will benefit from getting a sleep study. However with a tracheostomy in the tachycardia I do believe a diagnostic sleep study will be best. 11/04/2021 the patient is here for a pulmonary follow-up visit. Overall she is doing well. She denies any respiratory complaints. She is tolerating her tracheostomy well. She did mention that at home she does not use the inner cannula. When she did change her tracheostomy at the bedside I did a sister the inner part of the tracheostomy was cover with debris. Explained to her that by allowing debride to build up inside the tracheostomy it would only cause a potential obstruction if she tries to push in the inner cannula. Therefore I did ask her to keep the inner cannula and at all times. She does not seem to use her humidity all the time so therefore the mucus can get dry impacted within the trachea itself. The patient came in because she wants to be able to change her tracheostomy herself. I did assist her, but she was able to change her tracheostomy without complications. She will not be doing tracheostomy changes by herself. She does have a backup smaller trach in case she runs into difficulties. 03/09/2022 the patient is here for a pulmonary follow-up visit. Since we last spoke the patient has been doing well from a respiratory status. She has been changing her tracheostomy every month without any difficulties. denies any tenderness over the stoma site and also denies any significant secretions. She has not had any recent infections. She have an appointment soon with her ENT doctor. She continues to have her nebulized therapy. She does need a rescue inhaler for her to carry. I will provide her Combivent to the pharmacy. In addition to that she will get a flu shot. 11/11/2022 the patient is here for sick visit. She was exposed to a sick contact. Her daughter was sick with a cold last week. Now she started developing worsening cough. When she starts coughing she loses her breath. She has a hard time breathing. Last night she woke up out of a sound sleep with significant shortness of breath. She has been using her nebulizer. She denies any fevers or chills. Her cough for the most part is dry although at times she does bring up some mucus. When she does bring up the mucus is typically greenish or grayish in color. She has had history of Pseudomonas. No significant hypoxia at this time. Her respiratory exam is relatively normal. Her symptoms appear to be more consistent with croup. Likely the tracheitis has resulted in more difficulty breathing through the trach. She is keeping the trach open for better airway passage. Will go ahead and placed on Decadron for taper in addition to that the coin 4 history of Pseudomonas. She can also try the benzo nights to see if this provides her with some relief. If her symptoms worsen she will need to call for it in the evaluation of go to the ER. 02/12/2023 the patient is here for a pulmonary follow-up visit. Overall the patient has been doing well. Her new tracheostomy appears to be working well. Although she is been having some difficulties getting supplies the [employer]. They did give her a call and let her know that everything should be all set now. If she runs into any difficulty she will call back and we can sort out with the [employer]. She has not had any recent infections. The last time she was treated was back over the summer. Secretions are stable. She is tolerating her PMV. The patient is back to going for OT and PT therapy. She is noticed a slight worsening of her upper extremity motor function. She continues use the oxygen at nighttime with good effect. The oxygen therapy has been affecting beneficial. 05/04/2023 the patient is here for sick visit. She has been sick now for more than a week. She started developing some chest tightness and cough. The cough is moderate to severe. She has a hard time sleeping. She has been suctioning some clear thick sticky phlegm. Denies any hemoptysis or colored sputum. She also has some heaviness in the chest and some chest pain. Positive sick contacts. She did test negative for the COVID. Since she has been more than wakes sick I will not swab her for any other organisms. She did have a chest x-ray which I personally reviewed. It appears that she does have patchy opacities on the right hemithorax. This is suggestive of pneumonia. Therefore go ahead and treat her with some antibiotics and also course of Decadron. She is allergic to penicillin. If the patient is no better she will call the office for an earlier assessment. [facility] Medical History (Updated 05/04/23 @ 14:05 by Rashaun Irwin MD) Bronchopneumonia Dysphagia GERD (gastroesophageal reflux disease) Hypoxia Tachycardia Chronic respiratory failure Chest pain Pneumonia delivery due to maternal disorder, delivered, curr hospitaliz 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 Social History (Updated 02/21/21 @ 13:07 by Megan Quiros [facility]) Household Members: Spouse and Children Housing: House Do you presently have visiting nurse or other home services: No Alcohol intake: never Patient Tobacco Use Status: Never used Tobacco service: No Current occupational status: disabled Review of Systems Const Reports difficulty sleeping, Reports fatigue, Denies night sweats, Reports weakness and Reports weight loss ENT Denies change in voice, Denies lip swelling, Denies mouth pain, Denies nasal congestion, Denies nasal discharge and Denies tongue swelling Card Reports chest pain and Reports dyspnea on exertion Resp Denies change in phlegm color, Reports chest congestion, Reports cough, Denies hemoptysis, Denies excessive phlegm production, Denies pain on inspiration, Reports pain with cough, Reports dyspnea on exertion and Reports wheezing GI Denies abdominal pain Musc Reports as per HPI Neuro Reports as per HPI, Denies Neuro-related abnormal movements and Reports weakness Psych Denies no additional complaints Endo Reports fatigue Ryan/Lymph Denies easy bleeding and Denies lymphadenopathy Aller/Immun Denies lip swelling, Denies tongue swelling and Reports wheezing Physical Exam Vital Signs: Last Vital Signs Pulse 89 05/04/23 13:21 Pulse Ox 95 05/04/23 13:21 Oxygen Delivery Method Room Air 05/04/23 13:21 BMI result Body Mass Index 40.2 Const General: alert Neck Neck: Yes normal visual inspection, Yes full ROM, Yes no lymphadenopathy and Yes tracheostomy present Chest Chest palpation & inspection: normal inspection of the chest Resp Effort & Inspection: Actively coughing Quality: actively coughing Auscultation: no rhonchi, wheezes and diminished lung sounds Cardio Rate: regular rate Rhythm: regular rhythm Heart sounds: S1 normal heart sound present and S2 normal heart sound present GI Palpation (GI): Soft to palpation and nontender Auscultation: normal bowel sounds Skin General skin exam: rashes and/or lesions noted Assessment & Plan Assessment & Plan (1) Bronchopneumonia: Code(s): J18.0 - Bronchopneumonia, unspecified organism (2) Charcot Shantell Tooth muscular atrophy: Comment: interval worsening 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 (3) Asthma: Code(s): J45.909 - Unspecified asthma, uncomplicated Qualifiers: Asthma severity: moderate Asthma persistence: persistent Asthma complication type: with acute exacerbation Qualified Code(s): J45.41 - Moderate persistent asthma with (acute) exacerbation (4) Hypoxia: Code(s): R09.02 - Hypoxemia (5) Tracheostomy in place: Code(s): Z93.0 - Tracheostomy status (6) GERD (gastroesophageal reflux disease): Code(s): K21.9 - Gastro-esophageal reflux disease without esophagitis Qualifiers: Esophagitis presence: without esophagitis Qualified Code(s): K21.9 - Gastro-esophageal reflux disease without esophagitis Plan start Doxycycline start Decadron cough medicine Trach [id number] Benzonates as needed Continue oxygen with sleep. PPI for reflux disease should also sleep elevated combivent Duoneb as needed while in the home Neurology referral for MD. She needs a local neurologist Will call if no worse or no better by the end of the week Medications: New codeine-guaifenesin 10-100 mg/5 mL 10 mL PO Q6H 10 days PRN 300 mL 0RF cough cefpodoxime must administer with a meal/food 200 mg PO BID 20 tabs 0RF doxycycline monohydrate 100 mg PO BID 14 days 28 tabs 0RF Refilled dexamethasone orally daily; Take 1 tab BID x 5 days, then 1 tab daily x 5 days 10 days 15 tabs 0RF Coding Level of Care Code Est Pt Level 4 (64437) Diagnoses Bronchopneumonia J18.0 Charcot Shantell Tooth muscular atrophy G60.0 Moderate persistent asthma with acute exacerbation J45.41 Asthma severity: moderate Asthma persistence: persistent Asthma complication type: with acute exacerbation Hypoxia R09.[address] Z93.0 Gastroesophageal reflux disease without esophagitis K21.9 Esophagitis presence: without esophagitis Time Spent (min) 16
[2023-05-04 13:21] VITALS: PULSE 89; O2SAT 95; BMI 40.2
== END 2023-05-04 13:42 | disposition home or self-care (01) ==
PROVIDERS: PCP Internal Medicine; Visit Provider Hospitalist
DX: J18.0 Bronchopneumonia, unspecified organism (principal); G60.0 Hereditary motor and sensory neuropathy; J45.41 Moderate persistent asthma with (acute) exacerbation; R09.02 Hypoxemia; Z93.0 Tracheostomy status; K21.9 Gastro-esophageal reflux disease without esophagitis
CPT/HCPCS: 99214

== ENCOUNTER 2023-07-22 09:18 | Outpatient (AMB) | payer OTHER, SELFPAY ==
--- NOTE | 2023-07-22 09:08 | A.OFFVIS_ITS ---
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 She has not seen neurologist in 4 years. 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 she was born a full term baby but had speech, delay, motor delay, frequent falls, farrukh foot drop . When she was 10 she was found to have farrukh vocal cord paralysis- had tracheostomy at age 16.she has done many genetic tests and sees Dr. Valladares at [facility] [employer]. her presumed diagnosis is Charcot Shantell Tooth disease but she and her daughter tested negative. she has bilateral AFOs , in on PT and has seen a huge improvement. she had numbness, tingling, weakness in farrukh LE - now she feels cold in her feet and she is feeling it in her distal hands now. she has deformities in her fingers. she does not remember when she had EMG / she has 4 siblings and 5 half siblings - no neuropathy or any other features. SHe denies neuropathy in her parents Her 3 year old daughter was born premature and had IUGR, split mitral valve , 3 ASDS , possible Dandy walker malformation etc [facility] Medical History Bronchopneumonia Dysphagia GERD (gastroesophageal reflux disease) Hypoxia Tachycardia Chronic respiratory failure Chest pain Pneumonia delivery due to maternal disorder, [facility], [facility] 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 Social History Household Members: Spouse and Children Housing: House Do you presently have visiting nurse or other home services: No Alcohol intake: never Patient Tobacco Use Status: Never used Tobacco service: No Current occupational status: disabled Physical Exam Vital Signs: Last Vital Signs Pulse 96 07/22/23 09:31 Resp 16 07/22/23 09:31 Pulse Ox 98 07/22/23 09:31 Oxygen Delivery Method Room Air 07/22/23 09:31 Const General: cooperative, healthy appearing and comfortable Nutritional Appearance: overweight Orientation/consciousness: patient oriented x3 Eyes Pupils: Equal, round and reactive pupils present Neuro Other: Tracheostomy Hoarse voice Hands - finger flexed 4th and 5th finger with weakness of the hand grasp Farrukh Foot drop - AFOS weakness of knee extension and flexion - mild Gait- narrow based off balance and high steppage gait General: patient oriented x3, tone normal and moves all extremities Cranial nerves: Yes Equal, round and reactive pupils present, Yes Bilaterally intact EOM present, Yes Nystagmus not present, Yes Normal facial strength present and Yes Midline tongue present Cognition (Neuro): normal cognition Gait exam (Neuro): Steppage gait present Motor exam (neuro): Normal motor muscle tone present throughout Deep tendon reflexes (DTR's): Right triceps reflex intensity grade: 1+, Left triceps reflex intensity grade: 1+, Rt Biceps (C5, C6): 1+, Left biceps reflex intensity grade: 1+, Right brachioradialis reflex intensity grade: 1+, Left brachioradialis reflex intensity grade: 1+, Right patellar reflex intensity grade: 1+ and Left patellar reflex intensity grade: 1+ Coordination: [id number] test normal Assessment & Plan Assessment & Plan (1) Charcot Shantell Tooth muscular atrophy: Comment: interval worsening, she says she tested negative for CMT , unclear diagnosis 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
[2023-07-22 09:31] VITALS: PULSE 96; RESP 16; O2SAT 98
== END 2023-07-22 10:46 | disposition home or self-care (01) ==
PROVIDERS: PCP Internal Medicine; Visit Provider Psychiatry & Neurology Neurology
DX: G60.0 Hereditary motor and sensory neuropathy (principal)
CPT/HCPCS: 99204

== ENCOUNTER → 2023-07-22 09:18 | Outpatient (BNVA) | payer OTHER, SELFPAY | PROVIDERS: PCP Internal Medicine; Visit Provider Psychiatry & Neurology Neurology | DX: G60.0 Hereditary motor and sensory neuropathy (principal) | CPT/HCPCS: 99202 ==

== ENCOUNTER 2023-08-06 12:53 | Outpatient (AMB) | payer OTHER, SELFPAY ==
[2023-08-06 13:00] VITALS: PULSE 86; O2SAT 96; BMI 38.3
--- NOTE | 2023-08-06 13:00 | MHC.OFFVIS ---
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 The patient has been noticing since 3 days ago that she is having some chest discomfort. 8/10 in severity. Asthma getting worse. Associated with shortness of breath. Also noticed that she was coughing out some blood. She denies any sick lately like symptoms. Denies any fevers or chills. She came today for an appointment. We did change how her tracheostomy since she could not put the inner cannula back in. However her heart rate went up to 130 and her pulse ox 95%. She is 10 weeks gestation. She needs to be evaluated in the ER this time. We did review her results from when she went to the ER. She did have an elevated white count but otherwise her labs were okay. Her x-ray and her V/Q scan and lower extremity Dopplers were all reasonable. She did follow-up with Ob and had ultrasound baby that seem to be perfect. In the meantime she has been concerned about the albuterol because of the elevated heart rates in the palpitations. Now that she is with to be extremely careful. Therefore in the office we did provide her with Xopenex 1.25 mg which she tolerated significantly better. Therefore, I will send her Xopenex to the pharmacy. She failed albuterol due to the tachyarrhythmias and palpitations especially now . She has felt some palpitations getting worse as well. We did go for brief walking oximetry on room air she became short of breath and her heart rate went up to 130 and pulse ox decreased to 87 %. She was placed on 2 L nasal cannula. Her pulse ox was 98% with activity she felt a lot better on the oxygen. She needs to continue using the oxygen with activity and sleep. She will be following up with OBGYN at [facility] [phone]. She recently was admitted to [facility] for inpatient evaluation for significant hypoxia. Which she was there she had an aspiration event and became low more hypoxic. She was evaluated from a cardiac status in a pulmonary status and all the workup came back relatively negative except for diaphragmatic dysfunction likely worsened by her . The possibility of pulmonary hypertension is a reasonable thought. And because of her increased weight gain and daytime drowsiness with an elevated [place] score she will benefit from getting a sleep study. However with a tracheostomy in the tachycardia I do believe a diagnostic sleep study will be best. 11/04/2021 the patient is here for a pulmonary follow-up visit. Overall she is doing well. She denies any respiratory complaints. She is tolerating her tracheostomy well. She did mention that at home she does not use the inner cannula. When she did change her tracheostomy at the bedside I did a sister the inner part of the tracheostomy was cover with debris. Explained to her that by allowing debride to build up inside the tracheostomy it would only cause a potential obstruction if she tries to push in the inner cannula. Therefore I did ask her to keep the inner cannula and at all times. She does not seem to use her humidity all the time so therefore the mucus can get dry impacted within the trachea itself. The patient came in because she wants to be able to change her tracheostomy herself. I did assist her, but she was able to change her tracheostomy without complications. She will not be doing tracheostomy changes by herself. She does have a backup smaller trach in case she runs into difficulties. 03/09/2022 the patient is here for a pulmonary follow-up visit. Since we last spoke the patient has been doing well from a respiratory status. She has been changing her tracheostomy every month without any difficulties. denies any tenderness over the stoma site and also denies any significant secretions. She has not had any recent infections. She have an appointment soon with her ENT doctor. She continues to have her nebulized therapy. She does need a rescue inhaler for her to carry. I will provide her Combivent to the pharmacy. In addition to that she will get a flu shot. 11/11/2022 the patient is here for sick visit. She was exposed to a sick contact. Her daughter was sick with a cold last week. Now she started developing worsening cough. When she starts coughing she loses her breath. She has a hard time breathing. Last night she woke up out of a sound sleep with significant shortness of breath. She has been using her nebulizer. She denies any fevers or chills. Her cough for the most part is dry although at times she does bring up some mucus. When she does bring up the mucus is typically greenish or grayish in color. She has had history of Pseudomonas. No significant hypoxia at this time. Her respiratory exam is relatively normal. Her symptoms appear to be more consistent with croup. Likely the tracheitis has resulted in more difficulty breathing through the trach. She is keeping the trach open for better airway passage. Will go ahead and placed on Decadron for taper in addition to that the coin 4 history of Pseudomonas. She can also try the benzo nights to see if this provides her with some relief. If her symptoms worsen she will need to call for it in the evaluation of go to the ER. 02/12/2023 the patient is here for a pulmonary follow-up visit. Overall the patient has been doing well. Her new tracheostomy appears to be working well. Although she is been having some difficulties getting supplies the [employer]. They did give her a call and let her know that everything should be all set now. If she runs into any difficulty she will call back and we can sort out with the [employer] company. She has not had any recent infections. The last time she was treated was back over the summer. Secretions are stable. She is tolerating her PMV. The patient is back to going for OT and PT therapy. She is noticed a slight worsening of her upper extremity motor function. She continues use the oxygen at nighttime with good effect. The oxygen therapy has been affecting beneficial. 05/04/2023 the patient is here for sick visit. She has been sick now for more than a week. She started developing some chest tightness and cough. The cough is moderate to severe. She has a hard time sleeping. She has been suctioning some clear thick sticky phlegm. Denies any hemoptysis or colored sputum. She also has some heaviness in the chest and some chest pain. Positive sick contacts. She did test negative for the COVID. Since she has been more than wakes sick I will not swab her for any other organisms. She did have a chest x-ray which I personally reviewed. It appears that she does have patchy opacities on the right hemithorax. This is suggestive of pneumonia. Therefore go ahead and treat her with some antibiotics and also course of Decadron. She is allergic to penicillin. If the patient is no better she will call the office for an earlier assessment. 08/06/2023 the patient is here for pulmonary follow-up visit. The patient overall has been better. Her tracheostomy is in good placement. She misplaced her Passy Metcalf valve so she is using a manufactured buildings supervisor. A direct capsule hard for her to breathe. I did have a PMV available and I did provide her 1. She also should be able to get some from her [employer]. The trach changes have been happening without any difficulties. The patient did follow-up with Neurology and will benefit from physical therapy. In addition to that she is using the oxygen for sleep. He was seen therapy has been affecting beneficial. The patient does not have any further complaints at this time. [facility] Medical History Bronchopneumonia Dysphagia GERD (gastroesophageal reflux disease) Hypoxia Tachycardia Chronic respiratory failure Chest pain Pneumonia delivery due to [facility] disorder, [facility] 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 Social History Household Members: Spouse and Children Housing: House Do you presently have visiting nurse or other home services: No Alcohol intake: never Patient Tobacco Use Status: Never used Tobacco service: No Current occupational status: disabled Review of Systems Const Reports difficulty sleeping, Reports fatigue, Denies night sweats, Reports weakness and Reports weight loss ENT Denies change in voice, Denies lip swelling, Denies mouth pain, Denies nasal congestion, Denies nasal discharge and Denies tongue swelling Card Denies chest pain and Reports dyspnea on exertion Resp Denies change in phlegm color, Denies chest congestion, Reports cough, Denies hemoptysis, Denies excessive phlegm production, Denies pain on inspiration, Denies pain with cough, Reports dyspnea on exertion and Denies wheezing GI Denies abdominal pain Musc Reports as per HPI Neuro Reports as per HPI, Denies Neuro-related abnormal movements and Reports weakness Psych Denies no additional complaints Endo Reports fatigue Ryan/Lymph Denies easy bleeding and Denies lymphadenopathy Aller/Immun Denies lip swelling, Denies tongue swelling and Denies wheezing Physical Exam Vital Signs: Last Vital Signs Pulse 86 08/06/23 13:00 Pulse Ox 96 08/06/23 13:00 Oxygen Delivery Method Room Air 08/06/23 13:00 BMI result Body Mass Index 38.3 Const General: alert Neck Neck: Yes normal visual inspection, Yes full ROM, Yes no lymphadenopathy and Yes tracheostomy present Chest Chest palpation & inspection: normal inspection of the chest Resp Auscultation: no rhonchi, no wheezes and diminished lung sounds Cardio Rate: regular rate Rhythm: regular rhythm Heart sounds: S1 normal heart sound present and S2 normal heart sound present GI Palpation (GI): Soft to palpation and nontender Auscultation: normal bowel sounds Skin General skin exam: other (ecchymosis) Assessment & Plan Assessment & Plan (1) 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 (2) Asthma: Code(s): J45.909 - Unspecified asthma, uncomplicated Qualifiers: Asthma severity: moderate Asthma persistence: persistent Asthma complication type: with acute exacerbation Qualified Code(s): J45.41 - Moderate persistent asthma with (acute) exacerbation (3) Hypoxia: Code(s): R09.02 - Hypoxemia (4) Tracheostomy in place: Code(s): Z93.0 - Tracheostomy status (5) GERD (gastroesophageal reflux disease): Code(s): K21.9 - Gastro-esophageal reflux disease without esophagitis Qualifiers: Esophagitis presence: without esophagitis Qualified Code(s): K21.9 - Gastro-esophageal reflux disease without esophagitis Plan Trach [id number] Benzonates as needed Continue oxygen with sleep. PPI for reflux disease should also sleep elevated combivent Duoneb as needed while in the home Bloodwork F/U 4-6 months Orders: Orders AMB INR 08/06/23 R58 - Hemorrhage, not elsewhere classified, Z13.9 - Encounter for screening, unspecified Complete Blood Count Auto Diff 08/06/23 R58 - Hemorrhage, not elsewhere classified Cell Count w Diff Pleural Fld 08/06/23 R58 - Hemorrhage, not elsewhere classified Erythrocyte Sedimentation Rate 08/06/23 R58 - Hemorrhage, not elsewhere classified Coding Level of Care Code Est Pt Level 4 (13538) Diagnoses Charcot Shantell Tooth muscular atrophy G60.0 Moderate persistent asthma with acute exacerbation J45.41 Asthma severity: moderate Asthma persistence: persistent Asthma complication type: with acute exacerbation Hypoxia R09.[address] Z93.0 Gastroesophageal reflux disease without esophagitis K21.9 Esophagitis presence: without esophagitis Time Spent (min) 16
== END 2023-08-06 13:17 | disposition home or self-care (01) ==
PROVIDERS: PCP Internal Medicine; Visit Provider Hospitalist
DX: G60.0 Hereditary motor and sensory neuropathy (principal); J45.41 Moderate persistent asthma with (acute) exacerbation; R09.02 Hypoxemia; Z93.0 Tracheostomy status; K21.9 Gastro-esophageal reflux disease without esophagitis
CPT/HCPCS: 99214

== ENCOUNTER 2023-08-06 12:53 | Outpatient (REF) | payer OTHER, SELFPAY ==
[2023-08-06 13:35] LABS: MANUAL DIFF FLAG NO
[2023-08-06 14:07] LABS: Basophils Percent Auto 0.3 % (0-2); Hematocrit 40.4 % (37.0-47.0); Imm Gran Abs Auto 0.04 X10*3/uL (0.00-0.03); Imm Gran Pct Auto 0.4 % (0.0-0.4); Lymphocytes Absolute Auto 1.8 X10*3/uL (1.2-4.9); Lymphocytes Percent Auto 17.4 % (20-40); Mean Corpuscular HGB Conc 32.2 g/dl (31.0-35.0); Mean Corpuscular Hemoglobin 27.7 pg (27.0-33.0); Monocytes Absolute Auto 0.7 X10*3/uL (0.1-1.2); Neutrophils Absolute Auto 7.7 x10*3/uL (2.0-8.3); Neutrophils Percent Auto 74.9 % (45-73); Platelet Count 232 X10*3/uL (160-400); Red Cell Distribution Width 14.1 % (11.0-16.0); White Blood Count 10.3 X10*3/uL (4.8-10.8)
[2023-08-06 15:23] LABS: Erythrocyte Sedimentation Rate 16 MM/HR (0-20)
== END 2023-08-06 12:54 | disposition home or self-care (01) ==
LOC: HO.LAB 12:53
PROVIDERS: PCP Internal Medicine; Visit Provider Hospitalist
DX: G60.0 Hereditary motor and sensory neuropathy (principal); R58 Hemorrhage, not elsewhere classified; J45.41 Moderate persistent asthma with (acute) exacerbation; R09.02 Hypoxemia; K21.9 Gastro-esophageal reflux disease without esophagitis
CPT/HCPCS: 36415; 85025; 85652; 99212

== ENCOUNTER 2024-03-20 12:53 | Outpatient (REF) | payer OTHER, SELFPAY | END 2024-03-20 12:54 | disposition home or self-care (01) | LOC: HO.HOSX 12:53 | PROVIDERS: Visit Provider Physician Assistant | DX: M25.311 Other instability, right shoulder (principal); M77.8 Other enthesopathies, not elsewhere classified | CPT/HCPCS: 73030; 99202 ==

== ENCOUNTER 2024-03-20 13:52 | Outpatient (AMB) | payer OTHER, SELFPAY ==
--- NOTE | 2024-03-20 14:01 | MHC.OFFVIS ---
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 Patient reports that she was previously seen at [facility] due to pain, stiffness, and weakness of her right shoulder. She had an MRI arthrogram performed on 11/02/23 at [facility]. States her pain presented in June after bench pressing and had increased after a fall a few weeks later. She has tried and failed 3 cortisone injections and therapy. Her pain radiates down to her elbow. She has numbness and tingling in her arm that travels up her neck. She is being seen by a chiropractor for her back. 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 She states she injured her right shoulder in Jun during seated overhead bench press. At the time of the incident she does not recall any sensation of subluxation or dislocation in the shoulder she does not recall any popping or pulling sensations. Which she does recall is over the next several days she noticed increased discomfort with raising the arm and sleeping at night. Subsequently, she states she also fell on the shoulder in July or August. 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 She is in physical therapy for this. She states she has also had physical therapy of the right shoulder without significant relief. She has had 3 corticosteroid injection in the right shoulder without any pain relief. She has also had an MRI arthrogram of the right shoulder which was negative for any structural abnormalities or ligament tears. It was significant for tendinitis. She had an MRI of the C-spine which is significant for a mild herniated disc. She states she is pending an EMG at [facility] next month which was ordered by [facility]. At this time, she feels her pain in the shoulder is along the front of the shoulder and around the back. She has some pain that goes into the right elbow and into her scapula. 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 Social History (Updated 03/20/24 @ 14:12 by Leti Tyler [facility]) Household Members: Spouse and Children Housing: House Do you presently have visiting nurse or other home services: No Alcohol intake: never Patient Tobacco Use Status: Never used Tobacco service: No Current occupational status: disabled Current occupation: right hand dominant Review of Systems Const All systems reviewed & are unremarkable except as noted in HPI and below Physical Exam Vital Signs: BMI result Body Mass Index 38.3 Const General: cooperative and no acute distress Orientation/consciousness: patient oriented x3 Resp Effort & Inspection: normal respiratory effort and able to speak in complete sentences Cardio Peripheral pulses: Peripheral pulses 2+ throughout Neuro General: patient oriented x3 Extrem Other: Right shoulder with significant protraction of the scapula. Forward flexion is limited to 90 degrees. Significant pain and discomfort with abduction. She has significant tightness and hypersensitivity along the trapezium muscle into the scapula. Neurovascularly intact. Results Reviewed Results Reviewed: X-rays of the right shoulder obtained in the office today are negative for structural abnormalities. 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 Assessment & Plan Assessment & Plan (1) Dyskinesis of right scapula: Code(s): M25.311 - Other instability, right shoulder Category: Medical (2) Right shoulder tendinitis: Code(s): M77.8 - Other enthesopathies, not elsewhere classified Category: Medical Plan Case was discussed Bryanna today this time with an MRI that is negative for any structural abnormalities or ligament tears there is no surgical intervention warranted at this time. My recommendation would be to work with physical therapy to focus on scapular stabilization and cuff strengthening. I did send her prescription for Celebrex to take twice a day for 2 weeks to help with the inflammation. I explained to her that it appears this is an acute on chronic condition as she has baseline muscle weakness. I think if we can get her posture and scapula in better alignment this will hopefully take some of the stress off the shoulder joint itself. I would like her to increase activities as tolerated if there is any questions or concerns she can contact our office otherwise follow-up as needed. Orders: Orders XR shoulder RT min 2V Today M25.511 - Pain in right shoulder PT Evaluation and Treatment Today M25.311 - Other instability, right shoulder, M77.8 - Other enthesopathies, not elsewhere classified Medications: New celecoxib (Celebrex) 200 mg PO BID 60 caps 3RF 30 days Coding Level of Care Code New Pt Level 4 (24373) Complex EM visit Add On G2211 Diagnoses Dyskinesis of right scapula M25.311 Right shoulder tendinitis M77.8
[2024-03-20 14:16] VITALS: BMI 38.3
== END 2024-03-20 15:02 | disposition home or self-care (01) ==
PROVIDERS: PCP Internal Medicine; Visit Provider Physician Assistant
DX: M25.311 Other instability, right shoulder (principal); M77.8 Other enthesopathies, not elsewhere classified
CPT/HCPCS: 99204; G2211

== ENCOUNTER 2024-04-20 09:09 | Outpatient (AMB) | payer OTHER, SELFPAY ==
--- NOTE | 2024-04-20 09:10 | A.OFFVIS_ITS ---
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 The patient has been noticing since 3 days ago that she is having some chest discomfort. 8/10 in severity. Asthma getting worse. Associated with shortness of breath. Also noticed that she was coughing out some blood. She denies any sick lately like symptoms. Denies any fevers or chills. She came today for an appointment. We did change how her tracheostomy since she could not put the inner cannula back in. However her heart rate went up to 130 and her pulse ox 95%. She is 10 weeks gestation. She needs to be evaluated in the ER this time. We did review her results from when she went to the ER. She did have an elevated white count but otherwise her labs were okay. Her x-ray and her V/Q scan and lower extremity Dopplers were all reasonable. She did follow-up with Ob and had ultrasound baby that seem to be perfect. In the meantime she has been concerned about the albuterol because of the elevated heart rates in the palpitations. Now that she is with to be extremely careful. Therefore in the office we did provide her with Xopenex 1.25 mg which she tolerated significantly better. Therefore, I will send her Xopenex to the pharmacy. She failed albuterol due to the tachyarrhythmias and palpitations especially now . She has felt some palpitations getting worse as well. We did go for brief walking oximetry on room air she became short of breath and her heart rate went up to 130 and pulse ox decreased to 87 %. She was placed on 2 L nasal cannula. Her pulse ox was 98% with activity she felt a lot better on the oxygen. She needs to continue using the oxygen with activity and sleep. She will be following up with OBGYN at [facility] [phone]. She recently was admitted to [facility] for inpatient evaluation for significant hypoxia. Which she was there she had an aspiration event and became low more hypoxic. She was evaluated from a cardiac status in a pulmonary status and all the workup came back relatively negative except for diaphragmatic dysfunction likely worsened by her . The possibility of pulmonary hypertension is a reasonable thought. And because of her increased weight gain and daytime drowsiness with an elevated [place] score she will benefit from getting a sleep study. However with a tracheostomy in the tachycardia I do believe a diagnostic sleep study will be best. 11/04/2021 the patient is here for a pulmonary follow-up visit. Overall she is doing well. She denies any respiratory complaints. She is tolerating her tracheostomy well. She did mention that at home she does not use the inner cannula. When she did change her tracheostomy at the bedside I did a sister the inner part of the tracheostomy was cover with debris. Explained to her that by allowing debride to build up inside the tracheostomy it would only cause a potential obstruction if she tries to push in the inner cannula. Therefore I did ask her to keep the inner cannula and at all times. She does not seem to use her humidity all the time so therefore the mucus can get dry impacted within the trachea itself. The patient came in because she wants to be able to change her tracheostomy herself. I did assist her, but she was able to change her tracheostomy without complications. She will not be doing tracheostomy changes by herself. She does have a backup smaller trach in case she runs into difficulties. 03/09/2022 the patient is here for a pulmonary follow-up visit. Since we last spoke the patient has been doing well from a respiratory status. She has been changing her tracheostomy every month without any difficulties. denies any tenderness over the stoma site and also denies any significant secretions. She has not had any recent infections. She have an appointment soon with her ENT doctor. She continues to have her nebulized therapy. She does need a rescue inhaler for her to carry. I will provide her Combivent to the pharmacy. In addition to that she will get a flu shot. 11/11/2022 the patient is here for sick visit. She was exposed to a sick contact. Her daughter was sick with a cold last week. Now she started developing worsening cough. When she starts coughing she loses her breath. She has a hard time breathing. Last night she woke up out of a sound sleep with significant shortness of breath. She has been using her nebulizer. She denies any fevers or chills. Her cough for the most part is dry although at times she does bring up some mucus. When she does bring up the mucus is typically greenish or grayish in color. She has had history of Pseudomonas. No significant hypoxia at this time. Her respiratory exam is relatively normal. Her symptoms appear to be more consistent with croup. Likely the tracheitis has resulted in more difficulty breathing through the trach. She is keeping the trach open for better airway passage. Will go ahead and placed on Decadron for taper in addition to that the coin 4 history of Pseudomonas. She can also try the benzo nights to see if this provides her with some relief. If her symptoms worsen she will need to call for it in the evaluation of go to the ER. 02/12/2023 the patient is here for a pulmonary follow-up visit. Overall the patient has been doing well. Her new tracheostomy appears to be working well. Although she is been having some difficulties getting supplies the [employer]. They did give her a call and let her know that everything should be all set now. If she runs into any difficulty she will call back and we can sort out with the [employer] company. She has not had any recent infections. The last time she was treated was back over the summer. Secretions are stable. She is tolerating her PMV. The patient is back to going for OT and PT therapy. She is noticed a slight worsening of her upper extremity motor function. She continues use the oxygen at nighttime with good effect. The oxygen therapy has been affecting beneficial. 05/04/2023 the patient is here for sick visit. She has been sick now for more than a week. She started developing some chest tightness and cough. The cough is moderate to severe. She has a hard time sleeping. She has been suctioning some clear thick sticky phlegm. Denies any hemoptysis or colored sputum. She also has some heaviness in the chest and some chest pain. Positive sick contacts. She did test negative for the COVID. Since she has been more than wakes sick I will not swab her for any other organisms. She did have a chest x-ray which I personally reviewed. It appears that she does have patchy opacities on the right hemithorax. This is suggestive of pneumonia. Therefore go ahead and treat her with some antibiotics and also course of Decadron. She is allergic to penicillin. If the patient is no better she will call the office for an earlier assessment. 08/06/2023 the patient is here for pulmonary follow-up visit. The patient overall has been better. Her tracheostomy is in good placement. She misplaced her Passy Commack valve so she is using a operating room registered nurse. A direct capsule hard for her to breathe. I did have a PMV available and I did provide her 1. She also should be able to get some from her [employer]. The trach changes have been happening without any difficulties. The patient did follow-up with Neurology and will benefit from physical therapy. In addition to that she is using the oxygen for sleep. He was seen therapy has been affecting beneficial. The patient does not have any further complaints at this time. 04/20/2024 the patient is here for a pulmonary follow-up visit. Fortunately she had been sick for the last 4 days. She started with a sore throat and not developing worsening cough shortness of breath chest tightness. Moderate severity. She was started on going to the ER. Denies any fevers or chills. She did not get tested for COVID. We did do a swab in the office but was negative for RSV flu and also COVID. She did have some evidence of stridor in the office. She does have vocal cord paralysis. She does have a trach in per the most part keeping the valve off to able to breathe better. The patient did receive treatment with Xopenex x2. Also had to receive Solu-Medrol. She is going to start antibiotics and Decadron home. If the patient does not improve she will call for an earlier assessment of go to the ER. [facility] Medical History Bronchopneumonia Dysphagia GERD (gastroesophageal reflux disease) Hypoxia Tachycardia Chronic respiratory failure Chest pain Pneumonia delivery due to maternal disorder, delivered, curr hospitaliz 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 Social History Household Members: Spouse and Children Housing: House Do you presently have visiting nurse or other home services: No Alcohol intake: never Patient Tobacco Use Status: Never used Tobacco service: No Current occupational status: disabled Current occupation: right hand dominant Review of Systems Const Reports difficulty sleeping, Reports fatigue, Denies night sweats, Reports weakness and Reports weight loss ENT Denies change in voice, Denies lip swelling, Denies mouth pain, Denies nasal congestion, Denies nasal discharge and Denies tongue swelling Card Denies chest pain, Reports dyspnea and Reports dyspnea on exertion Resp Denies change in phlegm color, Reports chest congestion, Reports cough, Denies hemoptysis, Denies excessive phlegm production, Denies pain on inspiration, Denies pain with cough, Reports dyspnea, Reports dyspnea on exertion and Reports wheezing GI Denies abdominal pain Musc Reports as per HPI Neuro Reports as per HPI, Denies Neuro-related abnormal movements and Reports weakness Psych Denies no additional complaints Endo Reports fatigue Ryan/Lymph Denies easy bleeding and Denies lymphadenopathy Aller/Immun Denies lip swelling, Denies tongue swelling and Reports wheezing Physical Exam Vital Signs: Last Vital Signs Pulse 121 H 04/20/24 09:11 BP 106/70 04/20/24 09:11 Pulse Ox 97 04/20/24 09:11 Oxygen Delivery Method Room Air 04/20/24 09:11 BMI result Body Mass Index 39.9 Const General: alert and tired appearing HEENT Head: Yes normocephalic Neck Neck: Yes normal visual inspection, Yes full ROM, Yes no lymphadenopathy and Yes tracheostomy present Chest Chest palpation & inspection: normal inspection of the chest Resp Effort & Inspection: stridor Auscultation: no rhonchi, wheezes and diminished lung sounds Cardio Rate: regular rate Rhythm: regular rhythm Heart sounds: S1 normal heart sound present and S2 normal heart sound present GI Palpation (GI): Soft to palpation and nontender Auscultation: normal bowel sounds Skin General skin exam: other (ecchymosis) Office Procedures Nebulizer Treatment Nebulizer Treatment 98260-Ldjafpbxd/MDI RX initial, or Nebulizer Subsequent Treatment Office Meds methylprednisolone sod suc(PF) 125 mg/2 mL solution for injection Performing Provider: Rashaun Irwin MD Performing Location: [facility] Pulmonology Services Administered by: Nahed Russo LPN on 04/20/24 09:46 Dose Route Admin Location Dispensed Lot Number Expiration Date [employer] 125 mg IM rt buttock 2 ea [id number] 05/02/26 3099-9035-36 [employer] levalbuterol HCl 1.25 mg/3 mL solution for nebulization Performing Provider: Rashaun Irwin MD Performing Location: [facility] Pulmonology Services Administered by: Nahed Russo LPN on 04/20/24 09:51 Dose Route Admin Location Dispensed Lot Number Expiration Date 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 Category: Medical (3) Asthma: Code(s): J45.909 - Unspecified asthma, uncomplicated Category: Medical Qualifiers: Asthma severity: moderate Asthma persistence: persistent Asthma complication type: with acute exacerbation Qualified Code(s): J45.41 - Moderate persistent asthma with (acute) exacerbation (4) Hypoxia: Code(s): R09.02 - Hypoxemia Category: Medical (5) Tracheostomy in place: Code(s): Z93.0 - Tracheostomy status Category: Medical (6) GERD (gastroesophageal reflux disease): Code(s): K21.9 - Gastro-esophageal reflux disease without esophagitis Category: Medical Qualifiers: Esophagitis presence: without esophagitis Qualified Code(s): K21.9 - Gastro-esophageal reflux disease without esophagitis Plan solumedrol 125mg IM x 1 Decadron taper start augmentin Trach [id number] Benzonates as needed Continue oxygen with sleep. PPI for reflux disease should also sleep elevated combivent Duoneb as needed while in the home F/U 4-6 months Orders: Orders AMB Methylprednisolone Sod Succ Injection Today B34.9 - Viral infection, unspecified SARS-CoV2/FLU/RSV Today B34.9 - Viral infection, unspecified AMB Nebulizer Treatment Today B34.9 - Viral infection, unspecified Medications: New amoxicillin-pot clavulanate 875-125 mg 1 tab PO BID 20 tabs 0RF 10 days Refilled dexamethasone orally daily; Take 1 tab BID x 5 days, then 1 tab daily x 5 days 15 tabs 0RF 10 days Coding Level of Care Code Est Pt Level 4 (00027) Complex EM visit Add On G2211 Diagnoses Viral syndrome B34.9 Charcot Shantell Tooth muscular atrophy G60.0 Moderate persistent asthma with acute exacerbation J45.41 Asthma severity: moderate Asthma persistence: persistent Asthma complication type: with acute exacerbation Hypoxia R09.[address] Z93.0 Gastroesophageal reflux disease without esophagitis K21.9 Esophagitis presence: without esophagitis CPT Codes Nebulizer Treatment - Nebulizer Treatment, initial or subsequent: 63501- Nebulizer/MDI RX initial, or Nebulizer Subsequent Treatment ([id number]) Time Spent (min) 17
[2024-04-20 09:11] VITALS: BP 106/70; PULSE 121; O2SAT 97; BMI 39.9
--- OUTSIDE RECORDS SUMMARY | 2024-04-20 09:18 | XMS_ITS | Continuity of Care Document ---
Author Organization [facility] Address [address] [place] [id number]- Care Team Providers Care Rotor Casting Machine Operator Name Role Phone Danica VALENZUELA, Jayshree Mclean Primary Care Physician Encounter [facility] Date(s): 03/03/24 - 04/02/24 [facility] Physical Medicine and Rehabilitation [address] [place] [id number]- Attending Physician: Romario Ashton Admitting Physician: Romario Ashton Referring Physician: AdmtrRomario Encounter Type: Triage Allergies, Adverse Reactions, Alerts Substance Criticality Severity Reaction Reaction Severity Status prednisone severe behavior reaction Active Immunizations Given and Recorded Vaccine Date Status Refusal Reason SARS-CoV-2 (COVID-19) mRNA BNT-162b2 vac 01/09/21 Recorded tetanus/diphtheria/pertussis, acel(Tdap) 07/10/19 Recorded tetanus/diphtheria/pertussis, acel(Tdap) 01/03/15 Given influenza virus vaccine, inactivated 04/03/19 Mamadou rded influenza virus vaccine, inactivated 03/02/18 Mamadou rded influenza virus vaccine, inactivated 03/02/16 Mamadou rded influenza virus vaccine, inactivated 1 01/03/14 Gi jazmine influenza virus vaccine, inactivated 2 10/11/12 Gi jazmine influenza virus vaccine, inactivated 03/04/11 [...] 1Admin Note: vis=12/19/2013 2Admin Note: given at [facility] 3Admin Note: vis given 4Admin [...] (E66.9); Urge Incontinence (N39.41) Duration: Lifetime, 01/09/21 10:51:00 AM EDT, Supply Start Date: 01/09/21 Status: Ordered Quantity: 180.0 Unit: each Repeat number: 12 Arm sling Arm sling, See Instructions, # 1 kit, Refills 0, Tot. Refills 0, Maintenance, Dx: Right Rotator Cuff Syndrome, severe pain., 03/03/24 11:29:00 AM EDT, Supply Start Date: 03/03/24 Status: Ordered Quantity: 1.0 Unit: kit Repeat number: 1 Bilateral Carbon Fiber AFOs Bilateral Carbon Fiber AFOs, See Instructions, # 1 kit, Refills 0, Tot. Refills 0, Maintenance, Dx:CMT/bilat foot drop., 03/03/24 11:27:00 AM EDT, Supply Start Date: 03/03/24 Status: Ordered Quantity: 1.0 Unit: kit Repeat number: 1 ketoconazole 2% topical cream 1 application, Topically, Daily, # 15 Gm, 0 Refills, Maintenance, 12/09/23 7:28:00 PM EDT, Cream, [facility]/pharmacy #[id number], Partial fill upon patient request if the prescription is for a schedule II opioid drug., 1 application Topically Daily,x7 days, 163, cm, 12/09/23 19:13:00 EDT, Height, 105, kg, 11/05/23 11:17:00 EDT, Dry Weight Start Date: 12/09/23 Stop Date: 12/16/23 Status: Ordered Quantity: 15.0 Unit: g Repeat number: 1 Valtrex 1 gm oral tablet 1 tablet = 1 Gm, By Mouth, Daily, # 90 tablet, 3 Refills, Maintenance, 12/09/23 7:29:00 PM EDT, Tablet, [id number], Partial fill upon patient request if the prescription is for a schedule II opioid drug., 163, cm, 12/09/23 19:13:00 EDT, Height, 105, kg, 11/05/23 11:17:00 EDT, Dry Weight Start Date: 12/09/23 Status: Ordered Quantity: 90.0 Unit: tablet Repeat number: 4 Problem List Condition Confirmation Course Effective Dates Status H ealth Status Informant Asthma Confirmed Active 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, f/u normal, followed by WASHROOM OPERATOR Confirmed Active Respiratory failure, chronic - [facility] admit 06/2019, diaphram dysfunction/ , 2L O2 Confirmed Active Bilateral foot-drop Confirmed Active Tmcrhqh-Prpcn-Poiqc syndrome Confirmed Active Herpes simplex Confirmed Active IgA nephropathy Confirmed Active Obesity Confirmed Active Obstructive sleep apnea syndrome Confirmed Active Overactive bladder Confirmed Active PCOS (polycystic ovarian syndrome) Confirmed Active Posttraumatic Stress Disorder Confirmed 07/31/10 Active Pre-diabetes Confirmed Active Severe obesity Confirmed Active Tracheostomy Confirmed Active Vocal cord paralysis - CPAP for sleep Confirmed Active Social History Social History Type Response Smoking Status Never smoker; Type: Cigarettes entered on: 07/31/14 Sex Sex Representation Female (finding) Patient Care team information Care Team Personnel Name: Elian Todd MD Position: [facility] Renal MD Member Role: Lifetime Consulting Physician Address: [address] [place] [address] [address] [facility] [place], [place] [address] Telecom: Name: Shakira Padron NP Position: [facility] PCO Associate Professional Member Role: Primary Care Nurse Address: [address] [place], [place] [address] Telecom: Name: Jayshree Mishra MD Position: [facility] Physician - Primary Care Member Role: PCP Address: [address] [facility] [place] [address]- [place] Telecom: Care Team Related Persons Name: ESTHER SALDIVAR Name: ESTHER SALDIVAR Name: SABRINA EDMONDSON Insurance Providers Guarantor name: SYDNEE DUBOSE Health Plan Information #: 1 Payer: [facility] ALLIANCE/ONE CARE Member Number: NA Policy Number: NA Group Number: NA
--- OUTSIDE RECORDS SUMMARY | 2024-04-20 09:18 | XMS_ITS | Continuity of Care Document ---
Author Organization [facility] Address [address] [place] [address]- Care Team Providers Care Young Adult Librarian Name Role Phone Danica VALENZUELA, Jayshree Mclean Primary Care Physician [phone] Encounter [facility] Date(s): 03/07/24 - 04/06/24 [facility] Physical Medicine and Rehabilitation [address] [place] [phone]- Encounter Type: Triage Allergies, Adverse Reactions, Alerts [...] 1Admin Note: vis=12/19/2013 2Admin Note: given at [facility] 3Admin Note: vis given 4Admin Note: vix [...] Refills, Maintenance, 12/09/23 7:28:00 PM EDT, Cream, [id number], Partial fill upon patient request [...] Active 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, f/u normal, followed by FOURTH MATE Confirmed Active Respiratory failure, chronic - [facility] admit 06/2019, diaphram dysfunction/ , 2L O2 Confirmed Active Bilateral foot-drop Confirmed Active Adviuej-Olekv-Ggmbi syndrome Confirmed Active Herpes simplex Confirmed Active [...] Team Personnel Name: Elian Todd MD Position: [facility] Renal MD Member Role: Lifetime Consulting Physician Address: [address] [facility] [address] [facility] [place] [address]- Telecom: Name: Shakira Padron NP Position: [facility] PCO Associate Professional Member Role: Primary Care Nurse Address: [place] [address]- Telecom: Name: Jayshree Mishra MD Position: [facility] Physician - Primary Care Member Role: PCP Address: [address] [facility] [place] [address]- Telecom: Care Team Related Persons Name: ESTHER SALDIVAR Name: ESTHER SALDIVAR Name: SABRINA EDMONDSON Insurance Providers Guarantor name: SYDNEE DUBOSE Health Plan Information #: 1 Payer: [facility] CARE ALLIANCE/ONE CARE Member Number: NA Policy Number: NA Group Number: NA
--- OUTSIDE RECORDS SUMMARY | 2024-04-20 09:18 | XMS_ITS ---
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 Previous weight was 227.7lbs, current weight is standing at 231lbs. No additional concerns during this time. MEDICATIONS Medication SIG (Take, Route, Fr equency, Duration) Notes Start Date End Date Status Phentermine HCl 30 MG 1 capsule Orally O nce a day for 30 days 04/05/2024 Active SOCIAL HISTORY Tobacco Use: Social History Observation Description Date Details (start date - stop date) Never Smoker NA - NA Sex Assigned At : Social History Observation Description Sex Assigned At Unknown Tobacco Use/Smoking Question Answer Notes Are you a nonsmoker Section Notes: on disability alcohol: social 2x/week tob: declines marijuana: declines drug: declines PROBLEMS Problem Type ICD Code Onset Dates Problem Status W/U Status Risk SNOMED Code Notes Problem Obesity (BMI 30-39.9) (E66.9) Active confirmed [id number] VITAL SIGNS Heart Rate 102 /min 04/05/2024 Blood pressure systolic 112 mm Hg 04/05/20 24 Blood pressure diastolic 70 mm Hg 024 Weight 231.0 lbs 04/05/2024 BMI 39.65 kg/m2 04/05/2024 Height 64 in 04/05/2024 Oximetry 92 % 04/05/2024 Encounters Encounter Location Date Provider Diagnosis [facility] [address] [place] [address] 04/05/2024 MICHELINE FARRIS Obesity (BMI 30-39.9 ) E66.9 ; BMI 39.0-39.9,adult Z68.39 ; Taiyxgc-Dklsu-Xqtzy disease G60.0 and 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 01/14/2023:Weight 252.7 pounds, BMI 43.37. Patient welcomed to the practice. Extensively educated on lifestyle modifications including high-protein foods, low carbohydrate snacks, healthy fats, sleep hygiene, stress reduction. Patient provided with educational documentation regarding all of this. 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 This makes her difficult to exercise. Is interested in weight loss medications but will contact Dr. Gomez her neurologist before starting her on anything. In the meantime, will get blood work including insulin, hemoglobin A1c, lipid panel. Patient will also work on lifestyle modifications. Did discuss multiple medications that she will take her to her neurologist to see if she is a good candidate for them. 02/11/2023: Weight 247.6 pounds, BMI 42.5. Patient congratulated on effort. Losing successful weight loss. Patient has been working on lifestyle only. States that she has been eating more fruits, vegetables, and been intermittent fasting and she really likes it. Did contact her neurologist she stated semaglutide, Contrave, and phentermine are all safe in CMT. We will trial semaglutide. Patient educated on proper use, side effects. Follow-up in 4 weeks, continue 0.25 mg in the meantime. 03/17/2023: Weight 240.3, BMI 41.24. Patient congratulated on effort. Continuing to lose successful weight, maintaining muscle, targeting fat/water loss. Feeling better, close fitting better. Lifestyle modifications great, exercising regularly with proper nutrition. Taking semaglutide 0.25 mg, will increase to 0.5 today. 04/21/2023: Weight 234.6, BMI 40.26. Patient congratulated on effort, continues to lose slow, steady weight. Body composition reviewed showing some muscle loss, educated on the importance of resistance training, high-protein. Educated on water intake as well. Will continue with semaglutide 1 mg, trying to submit for Wegovy 1 mg although she is aware that her health insurance will not cover it, she would still like us to try to send it. 06/02/2023: Weight 233.8, BMI 40.13. Body composition reviewed 3 pounds of fat loss, 1 pound of muscle gain. Patient graduated. Has been doing semaglutide, with success, but states that is getting too costly for her and would prefer to switch over to something more cost effective such as phentermine. Educated on proper use, side effects. EKG today without concern. Did have neurologist approval. Will start, follow-up in 4 weeks. 06/28/2023: Weight 227.7, BMI 39.08. Patient graduated an effort, continuing to lose slow, steady weight. Body composition reviewed showing great progress with fat loss, only 1 pound of muscle loss. Will increase phentermine from 15 mg to 30 mg. Educated on proper use, side effects. Patient graduated, very pleased with progress overall. 07/20/2023: Weight 223.3 lbs, BMI 38.33. Congratulated patient on 5 pound weight loss. She is pleased with her progress. Taking phentermine 30 mg without side effects. Excercises 3-5x week resistance training, with 2x weekly physcial therapy, Diet is high protein, Stress and sleep well managed . SECA reviewed - fat mass decreased, muscle increased, visercal adipose increased,dehydration with bloating. IV hydration information provided today. Refill Phentermine 30 mg sent. Continue diet and exercise habits. 01/06/24: Weight 239.1 BMI 41.04. Has not been seen in the office in a few months after having to reschedule previous appointment. Has not been on phentermine since August or August due to running out of medication. Would like to restart phentermine at 15 mg as she has had success in the past with this medication. We discussed lifestyle modifications including diet with high protein, fruits and vegetables, fiber, and low carbohydrates. Discussed importance of exercise with resistance training at least 3 days per week to maintain or increase muscle mass. Proper use of medication and side effect profile discussed with patient. Will follow-up in 4-6 weeks. 04/05/2024: Weight 231, BMI 39. Patient taking phentermine 15 mg, will increase to 30 mg. Discussed proper use, side effects. Still working on nutrition, eating higher protein, exercise limited due to shoulder pain for which she is following with orthopedics and a chiropractor for as well as physical therapy. #Pxcwhxm-Iucor-Owhfc disease: Follows with neurologist Dr. Bland. Occasions for this. Does have a tracheostomy, and bracing on bilateral feet. #PCOS: Consider metformin. Time spent with patient 30 minutes with greater than 50% on patient occasion and care coordination. Patient will follow-up in 6 weeks, sooner as needed. All quetsions answered to patients satisfaction. Patient verbalized understanding of diagnosis and treatments explained. To call sooner prior to next visit it any questions/concerns arise. Case discussed with collaborating physician Pat Richards who reviewed the assessment and plan. Chart, medications, labs, vital signs reviewed. Dictation was accomplished with the use of [employer] voice recognition software, prone to medical misidentifications and grammatical errors. This is unintentional and the practitioner does try to identify and correct these, but some could still be present. Please do not hesitate to contact practitioner for clarification. 04/05/2024 BMI 39.0-39.9,adult (ICD-10 - Z68.39) Jessica Is a 33 year-old female who presents the office for weight management follow-up. 01/14/2023:Weight 252.7 pounds, BMI 43.37. Patient welcomed to the practice. Extensively educated on lifestyle modifications including high-protein foods, low carbohydrate snacks, healthy fats, sleep hygiene, stress reduction. Patient provided with educational documentation regarding all of this. 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 This makes her difficult to exercise. Is interested in weight loss medications but will contact Dr. Gomez her neurologist before starting her on anything. In the meantime, will get blood work including insulin, hemoglobin A1c, lipid panel. Patient will also work on lifestyle modifications. Did discuss multiple medications that she will take her to her neurologist to see if she is a good candidate for them. 02/11/2023: Weight 247.6 pounds, BMI 42.5. Patient congratulated on effort. Losing successful weight loss. Patient has been working on lifestyle only. States that she has been eating more fruits, vegetables, and been intermittent fasting and she really likes it. Did contact her neurologist she stated semaglutide, Contrave, and phentermine are all safe in CMT. We will trial semaglutide. Patient educated on proper use, side effects. Follow-up in 4 weeks, continue 0.25 mg in the meantime. 03/17/2023: Weight 240.3, BMI 41.24. Patient congratulated on effort. Continuing to lose successful weight, maintaining muscle, targeting fat/water loss. Feeling better, close fitting better. Lifestyle modifications great, exercising regularly with proper nutrition. Taking semaglutide 0.25 mg, will increase to 0.5 today. 04/21/2023: Weight 234.6, BMI 40.26. Patient congratulated on effort, continues to lose slow, steady weight. Body composition reviewed showing some muscle loss, educated on the importance of resistance training, high-protein. Educated on water intake as well. Will continue with semaglutide 1 mg, trying to submit for Wegovy 1 mg although she is aware that her health insurance will not cover it, she would still like us to try to send it. 06/02/2023: Weight 233.8, BMI 40.13. Body composition reviewed 3 pounds of fat loss, 1 pound of muscle gain. Patient graduated. Has been doing semaglutide, with success, but states that is getting too costly for her and would prefer to switch over to something more cost effective such as phentermine. Educated on proper use, side effects. EKG today without concern. Did have neurologist approval. Will start, follow-up in 4 weeks. 06/28/2023: Weight 227.7, BMI 39.08. Patient graduated an effort, continuing to lose slow, steady weight. Body composition reviewed showing great progress with fat loss, only 1 pound of muscle loss. Will increase phentermine from 15 mg to 30 mg. Educated on proper use, side effects. Patient graduated, very pleased with progress overall. 07/20/2023: Weight 223.3 lbs, BMI 38.33. Congratulated patient on 5 pound weight loss. She is pleased with her progress. Taking phentermine 30 mg without side effects. Excercises 3-5x week resistance training, with 2x weekly physcial therapy, Diet is high protein, Stress and sleep well managed . SECA reviewed - fat mass decreased, muscle increased, visercal adipose increased,dehydration with bloating. IV hydration information provided today. Refill Phentermine 30 mg sent. Continue diet and exercise habits. 01/06/24: Weight 239.1 BMI 41.04. Has not been seen in the office in a few months after having to reschedule previous appointment. Has not been on phentermine since August or August due to running out of medication. Would like to restart phentermine at 15 mg as she has had success in the past with this medication. We discussed lifestyle modifications including diet with high protein, fruits and vegetables, fiber, and low carbohydrates. Discussed importance of exercise with resistance training at least 3 days per week to maintain or increase muscle mass. Proper use of medication and side effect profile discussed with patient. Will follow-up in 4-6 weeks. 04/05/2024: Weight 231, BMI 39. Patient taking phentermine 15 mg, will increase to 30 mg. Discussed proper use, side effects. Still working on nutrition, eating higher protein, exercise limited due to shoulder pain for which she is following with orthopedics and a chiropractor for as well as physical therapy. #Mxwacpa-Ijdgg-Extcs disease: Follows with neurologist Dr. Bland. Occasions for this. Does have a tracheostomy, and bracing on bilateral feet. #PCOS: Consider metformin. Time spent with patient 30 minutes with greater than 50% on patient occasion and care coordination. Patient will follow-up in 6 weeks, sooner as needed. All quetsions answered to patients satisfaction. Patient verbalized understanding of diagnosis and treatments explained. To call sooner prior to next visit it any questions/concerns arise. Case discussed with collaborating physician Pat Richards who reviewed the assessment and plan. Chart, medications, labs, vital signs reviewed. Dictation was accomplished with the use of [employer] voice recognition software, prone to medical misidentifications and grammatical errors. This is unintentional and the practitioner does try to identify and correct these, but some could still be present. Please do not hesitate to contact practitioner for clarification. 04/05/2024 Lifzard-Gtvgc-P ooth disease (ICD-10 - G60.0) Jessica Is a 33 year-old female who presents the office for weight management follow-up. 01/14/2023:Weight 252.7 pounds, BMI 43.37. Patient welcomed to the practice. Extensively educated on lifestyle modifications including high-protein foods, low carbohydrate snacks, healthy fats, sleep hygiene, stress reduction. Patient provided with educational documentation regarding all of this. 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 This makes her difficult to exercise. Is interested in weight loss medications but will contact Dr. Gomez her neurologist before starting her on anything. In the meantime, will get blood work including insulin, hemoglobin A1c, lipid panel. Patient will also work on lifestyle modifications. Did discuss multiple medications that she will take her to her neurologist to see if she is a good candidate for them. 02/11/2023: Weight 247.6 pounds, BMI 42.5. Patient congratulated on effort. Losing successful weight loss. Patient has been working on lifestyle only. States that she has been eating more fruits, vegetables, and been intermittent fasting and she really likes it. Did contact her neurologist she stated semaglutide, Contrave, and phentermine are all safe in CMT. We will trial semaglutide. Patient educated on proper use, side effects. Follow-up in 4 weeks, continue 0.25 mg in the meantime. 03/17/2023: Weight 240.3, BMI 41.24. Patient congratulated on effort. Continuing to lose successful weight, maintaining muscle, targeting fat/water loss. Feeling better, close fitting better. Lifestyle modifications great, exercising regularly with proper nutrition. Taking semaglutide 0.25 mg, will increase to 0.5 today. 04/21/2023: Weight 234.6, BMI 40.26. Patient congratulated on effort, continues to lose slow, steady weight. Body composition reviewed showing some muscle loss, educated on the importance of resistance training, high-protein. Educated on water intake as well. Will continue with semaglutide 1 mg, trying to submit for Wegovy 1 mg although she is aware that her health insurance will not cover it, she would still like us to try to send it. 06/02/2023: Weight 233.8, BMI 40.13. Body composition reviewed 3 pounds of fat loss, 1 pound of muscle gain. Patient graduated. Has been doing semaglutide, with success, but states that is getting too costly for her and would prefer to switch over to something more cost effective such as phentermine. Educated on proper use, side effects. EKG today without concern. Did have neurologist approval. Will start, follow-up in 4 weeks. 06/28/2023: Weight 227.7, BMI 39.08. Patient graduated an effort, continuing to lose slow, steady weight. Body composition reviewed showing great progress with fat loss, only 1 pound of muscle loss. Will increase phentermine from 15 mg to 30 mg. Educated on proper use, side effects. Patient graduated, very pleased with progress overall. 07/20/2023: Weight 223.3 lbs, BMI 38.33. Congratulated patient on 5 pound weight loss. She is pleased with her progress. Taking phentermine 30 mg without side effects. Excercises 3-5x week resistance training, with 2x weekly physcial therapy, Diet is high protein, Stress and sleep well managed . SECA reviewed - fat mass decreased, muscle increased, visercal adipose increased,dehydration with bloating. IV hydration information provided today. Refill Phentermine 30 mg sent. Continue diet and exercise habits. 01/06/24: Weight 239.1 BMI 41.04. Has not been seen in the office in a few months after having to reschedule previous appointment. Has not been on phentermine since August or August due to running out of medication. Would like to restart phentermine at 15 mg as she has had success in the past with this medication. We discussed lifestyle modifications including diet with high protein, fruits and vegetables, fiber, and low carbohydrates. Discussed importance of exercise with resistance training at least 3 days per week to maintain or increase muscle mass. Proper use of medication and side effect profile discussed with patient. Will follow-up in 4-6 weeks. 04/05/2024: Weight 231, BMI 39. Patient taking phentermine 15 mg, will increase to 30 mg. Discussed proper use, side effects. Still working on nutrition, eating higher protein, exercise limited due to shoulder pain for which she is following with orthopedics and a chiropractor for as well as physical therapy. #Guvvdhp-Bybtv-Utfnt disease: Follows with neurologist Dr. Bland. Occasions for this. Does have a tracheostomy, and bracing on bilateral feet. #PCOS: Consider metformin. Time spent with patient 30 minutes with greater than 50% on patient occasion and care coordination. Patient will follow-up in 6 weeks, sooner as needed. All quetsions answered to patients satisfaction. Patient verbalized understanding of diagnosis and treatments explained. To call sooner prior to next visit it any questions/concerns arise. Case discussed with collaborating physician Pat Richards who reviewed the assessment and plan. Chart, medications, labs, vital signs reviewed. Dictation was accomplished with the use of [employer] voice recognition software, prone to medical misidentifications and grammatical errors. This is unintentional and the practitioner does try to identify and correct these, but some could still be present. Please do not hesitate to contact practitioner for clarification. 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 01/14/2023:Weight 252.7 pounds, BMI 43.37. Patient welcomed to the practice. Extensively educated on lifestyle modifications including high-protein foods, low carbohydrate snacks, healthy fats, sleep hygiene, stress reduction. Patient provided with educational documentation regarding all of this. 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 This makes her difficult to exercise. Is interested in weight loss medications but will contact Dr. Gomez her neurologist before starting her on anything. In the meantime, will get blood work including insulin, hemoglobin A1c, lipid panel. Patient will also work on lifestyle modifications. Did discuss multiple medications that she will take her to her neurologist to see if she is a good candidate for them. 02/11/2023: Weight 247.6 pounds, BMI 42.5. Patient congratulated on effort. Losing successful weight loss. Patient has been working on lifestyle only. States that she has been eating more fruits, vegetables, and been intermittent fasting and she really likes it. Did contact her neurologist she stated semaglutide, Contrave, and phentermine are all safe in CMT. We will trial semaglutide. Patient educated on proper use, side effects. Follow-up in 4 weeks, continue 0.25 mg in the meantime. 03/17/2023: Weight 240.3, BMI 41.24. Patient congratulated on effort. Continuing to lose successful weight, maintaining muscle, targeting fat/water loss. Feeling better, close fitting better. Lifestyle modifications great, exercising regularly with proper nutrition. Taking semaglutide 0.25 mg, will increase to 0.5 today. 04/21/2023: Weight 234.6, BMI 40.26. Patient congratulated on effort, continues to lose slow, steady weight. Body composition reviewed showing some muscle loss, educated on the importance of resistance training, high-protein. Educated on water intake as well. Will continue with semaglutide 1 mg, trying to submit for Wegovy 1 mg although she is aware that her health insurance will not cover it, she would still like us to try to send it. 06/02/2023: Weight 233.8, BMI 40.13. Body composition reviewed 3 pounds of fat loss, 1 pound of muscle gain. Patient graduated. Has been doing semaglutide, with success, but states that is getting too costly for her and would prefer to switch over to something more cost effective such as phentermine. Educated on proper use, side effects. EKG today without concern. Did have neurologist approval. Will start, follow-up in 4 weeks. 06/28/2023: Weight 227.7, BMI 39.08. Patient graduated an effort, continuing to lose slow, steady weight. Body composition reviewed showing great progress with fat loss, only 1 pound of muscle loss. Will increase phentermine from 15 mg to 30 mg. Educated on proper use, side effects. Patient graduated, very pleased with progress overall. 07/20/2023: Weight 223.3 lbs, BMI 38.33. Congratulated patient on 5 pound weight loss. She is pleased with her progress. Taking phentermine 30 mg without side effects. Excercises 3-5x week resistance training, with 2x weekly physcial therapy, Diet is high protein, Stress and sleep well managed . SECA reviewed - fat mass decreased, muscle increased, visercal adipose increased,dehydration with bloating. IV hydration information provided today. Refill Phentermine 30 mg sent. Continue diet and exercise habits. 01/06/24: Weight 239.1 BMI 41.04. Has not been seen in the office in a few months after having to reschedule previous appointment. Has not been on phentermine since August or August due to running out of medication. Would like to restart phentermine at 15 mg as she has had success in the past with this medication. We discussed lifestyle modifications including diet with high protein, fruits and vegetables, fiber, and low carbohydrates. Discussed importance of exercise with resistance training at least 3 days per week to maintain or increase muscle mass. Proper use of medication and side effect profile discussed with patient. Will follow-up in 4-6 weeks. 04/05/2024: Weight 231, BMI 39. Patient taking phentermine 15 mg, will increase to 30 mg. Discussed proper use, side effects. Still working on nutrition, eating higher protein, exercise limited due to shoulder pain for which she is following with orthopedics and a chiropractor for as well as physical therapy. #Qujbxgy-Iqfqb-Jwgsq disease: Follows with neurologist Dr. Bland. Occasions for this. Does have a tracheostomy, and bracing on bilateral feet. #PCOS: Consider metformin. Time spent with patient 30 minutes with greater than 50% on patient occasion and care coordination. Patient will follow-up in 6 weeks, sooner as needed. All quetsions answered to patients satisfaction. Patient verbalized understanding of diagnosis and treatments explained. To call sooner prior to next visit it any questions/concerns arise. Case discussed with collaborating physician Pat Richards who reviewed the assessment and plan. Chart, medications, labs, vital signs reviewed. Dictation was accomplished with the use of [employer] voice recognition software, prone to medical misidentifications and grammatical errors. This is unintentional and the practitioner does try to identify and correct these, but some could still be present. Please do not hesitate to contact practitioner for clarification. PLAN OF TREATMENT Medication Medication Name Sig Start Date Stop Date Notes Phentermine HCl 30 MG 1 capsule Orally O nce a day for 30 days 04/05/2024 Next Appt Details Provider Name:MICHELINE FARRIS, Brittney 05/16/2024 10:30:00 AM, [address], [place], [address], Progress Notes * Jessica DUBOSEDOB:1990 (33 yo F)Acc No.[id number]:04/05/2024 Patient:??Jessica DUBOSE Provider:??MICHELINE FARRIS PA-C :1990?Age:33 Y?Sex:Fe male Date:04/05/2024 Address:[address] [place], [place] [id number] Subjective: * Chief Complaints: * ?1. Patient presents fo r weight management follow up. Previous weight was 227.7lbs, current weight is standing at 231lbs. No additional concerns during this time.. * HPI: ?Constitutional:? Jessica Is a pleasant 33-year-old female who presents the office for a weight management follow-up. Patient taking phentermine 15 mg, and is interested in increasing to 30 mg. States that she is motivated to get back on track, but just lost her car, so she has not been able to go to the gym as frequently. States that she is currently dealing with her shoulder injury and going to physical therapy and orthopedics as well as a chiropractor which has also been limiting her exercise. She has been doing better with nutrition, do grocery shopping more, and calorie counting. She is eating more meats and vegetables. Doing this with her which is motivating for her. * ROS:?Constitutional: Patient denies any excessive fatigue with exercise, no weight loss, no fever, no night sweats, no changes in sleep. ???Eyes: No eye discharge, no itching, no redness, no vision changes. Advised the significance of regular eye exams to screen for glaucoma and other eye problems. ???Ear nose throat: No ear pain, No sore throat, no postnasal drip, no runny nose, no sneezing, no hearing changes ???Cardiovascular: No chest pain, no dyspnea on exertion, no PND, no orthopnea, no irregular pulse, no palpitations, no claudication, no diaphoresis, no claudication. ???Respiratory: No chronic cough, no hemoptysis, no sputum, no wheezing, no SOB, no pleuritic pain. ???GI: No diarrhea, no constipation, no blood in the stools, no pain associated with eating, no indigestion, no difficulty swallowing, no appetite change. ???Genitourinary: No painful urination, no hesitancy, no blood in the urine, no incontinence, no frequency, no urgency, no abnormal discharge. ???Musculoskeletal: No back pain, no joint pain, no limitations to walking and running, no joint deformity, no joint stiffness, no muscle weakness ???Integumentary: No new skin rash. No new changes in skin moles, no pruritis, no color change. ???Neurological: No history of seizures, no memory loss, no language dysfunction, no inability to concentrate, no localized weakness, no sensation loss, no confusion, no dizziness, no tremor, no numbness, no tingling. ???Psychiatric: no anxiety, no depression, no suicidal thoughts, feels safe at home. ???Endocrine: No polyuria, no polyphagia, no polydipsia. No heat/cold intolerance, no excesss thirst. ???Hematological: No easy bruising or bleeding, no lymph node swelling. 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 * Surgical History:??tracheoto my , c section . * Hospitalization/Major Diagno stic Procedure:??tracheotomy , c section . * Family History:??Father: ali ve.??Mother: alive 49 yrs.??1 brother(s) , 2 sister(s) - healthy. 1 daughter(s) - healthy. .?? grandfather: heart disease, stroke, no cancer mother: obesity. * Social History:?Tobacco Use:??Tobacco Use/Smoking??Are you a??nonsmoker.?on disability ???alcohol: social 2x/week ???tob: declines ???marijuana: declines ???drug: declines. * Medications:??Taking Phenter mine HCl 15 MG Capsule 1 capsule Orally Once a day , Medication List reviewed and reconciled with the patient * Allergies:??Prednisone. Objective: * Vitals:??HR:102/min, BP:112/ 70mm Hg, Wt:231.0lbs, BMI:39.65Index, Ht: 64 in, Oxygen sat %:92%. * Physical Examination:?General: Age appropriate 33-year-old female, well appearing, no acute distress, speaking in full sentences without respiratory compromise. Well groomed, well developed. Alert, Interactive. ?Skin: Warm, dry and intact. No lesions/rashes/erythema. ?HEENT: Normocephalic/atraumatic. EOMI intact. PERRLA. Vision intact. No ptosis or lid lag. Nares without discharge or inflammation. Oral cavity free of plaques or exudates. Dentition well maintained. No pharyngeal erythema. Ear canal without cerumen or discharge. Tympanic membrane visualized including bony structures and cone of light. ?Neck/Thyroid: Supple, with no lymphadenopathy. Full ROM. No carotid artery bruits auscultated. Thyroid free of nodules and nonenlarged. ?Lung: Clear to auscultation bilaterally, no wheezes, rales or rhonchi. No barrel chest. Equal chest rise and fall bilaterally. ?Cardiac: S1 and S2 appreciated. No murmurs/rubs or gallops. DP pulses intact 2+ bilaterally. Capillary refill <2 seconds. ?Abdomen: Soft, nontender, normoactive bowel sounds. No rebound/guarding. No CVA tenderness. No Masses. ?Extremities: Bilateral lower extremities with no edema or rubor. No evidence of varicose veins. Equal tone bilaterally. ?MSK: Bilateral upper and lower extremities 5/5 strength with flexion/extension. Trainmaster strength 5/5. Sensation intact. ?Neuro: CN II-XI grossly intact. Steady gait with ambulation observed. Symmetric reflexes. ?Psych: Stable mood and affect. 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 Jessica Is a 33 year-old fe male who presents the office for weight management follow-up. 01/14/2023:Weight 252.7 pounds, BMI 43.37. Patient welcomed to the practice. Extensively educated on lifestyle modifications including high-protein foods, low carbohydrate snacks, healthy fats, sleep hygiene, stress reduction. Patient provided with educational documentation regarding all of this. Patient does have a progressive condition Cwykdtf-Jlwxf-Rtqer that affects her vocal cords, and her muscles of her lower extremities, and now hands. This makes her difficult to exercise. Is interested in weight loss medications but will contact Dr. Gomez her neurologist before starting her on anything. In the meantime, will get blood work including insulin, hemoglobin A1c, lipid panel. Patient will also work on lifestyle modifications. Did discuss multiple medications that she will take her to her neurologist to see if she is a good candidate for them. 02/11/2023: Weight 247.6 pounds, BMI 42.5. Patient congratulated on effort. Losing successful weight loss. Patient has been working on lifestyle only. States that she has been eating more fruits, vegetables, and been intermittent fasting and she really likes it. Did contact her neurologist she stated semaglutide, Contrave, and phentermine are all safe in CMT. We will trial semaglutide. Patient educated on proper use, side effects. Follow-up in 4 weeks, continue 0.25 mg in the meantime. 03/17/2023: Weight 240.3, BMI 41.24. Patient congratulated on effort. Continuing to lose successful weight, maintaining muscle, targeting fat/water loss. Feeling better, close fitting better. Lifestyle modifications great, exercising regularly with proper nutrition. Taking semaglutide 0.25 mg, will increase to 0.5 today. 04/21/2023: Weight 234.6, BMI 40.26. Patient congratulated on effort, continues to lose slow, steady weight. Body composition reviewed showing some muscle loss, educated on the importance of resistance training, high-protein. Educated on water intake as well. Will continue with semaglutide 1 mg, trying to submit for Weluisvdonnie 1 mg although she is aware that her health insurance will not cover it, she would still like us to try to send it. 06/02/2023: Weight 233.8, BMI 40.13. Body composition reviewed 3 pounds of fat loss, 1 pound of muscle gain. Patient graduated. Has been doing semaglutide, with success, but states that is getting too costly for her and would prefer to switch over to something more cost effective such as phentermine. Educated on proper use, side effects. EKG today without concern. Did have neurologist approval. Will start, follow-up in 4 weeks. 06/28/2023: Weight 227.7, BMI 39.08. Patient graduated an effort, continuing to lose slow, steady weight. Body composition reviewed showing great progress with fat loss, only 1 pound of muscle loss. Will increase phentermine from 15 mg to 30 mg. Educated on proper use, side effects. Patient graduated, very pleased with progress overall. 07/20/2023: Weight 223.3 lbs, BMI 38.33. Congratulated patient on 5 pound weight loss. She is pleased with her progress. Taking phentermine 30 mg without side effects. Excercises 3-5x week resistance training, with 2x weekly physcial therapy, Diet is high protein, Stress and sleep well managed . SECA reviewed - fat mass decreased, muscle increased, visercal adipose increased,dehydration with bloating. IV hydration information provided today. Refill Phentermine 30 mg sent. Continue diet and exercise habits. 01/06/24: Weight 239.1 BMI 41.04. Has not been seen in the office in a few months after having to reschedule previous appointment. Has not been on phentermine since August or August due to running out of medication. Would like to restart phentermine at 15 mg as she has had success in the past with this medication. We discussed lifestyle modifications including diet with high protein, fruits and vegetables, fiber, and low carbohydrates. Discussed importance of exercise with resistance training at least 3 days per week to maintain or increase muscle mass. Proper use of medication and side effect profile discussed with patient. Will follow-up in 4-6 weeks. 04/05/2024: Weight 231, BMI 39. Patient taking phentermine 15 mg, will increase to 30 mg. Discussed proper use, side effects. Still working on nutrition, eating higher protein, exercise limited due to shoulder pain for which she is following with orthopedics and a chiropractor for as well as physical therapy. #Nsxjzxu-Wtrbm-Absal disease: Follows with neurologist Dr. Bland. Occasions for this. Does have a tracheostomy, and bracing on bilateral feet. #PCOS: Consider metformin. Time spent with patient 30 minutes with greater than 50% on patient occasion and care coordination. Patient will follow-up in 6 weeks, sooner as needed. All quetsions answered to patients satisfaction. Patient verbalized understanding of diagnosis and treatments explained. To call sooner prior to next visit it any questions/concerns arise. Case discussed with collaborating physician Pat Richards who reviewed the assessment and plan. Chart, medications, labs, vital signs reviewed. Dictation was accomplished with the use of [employer] voice recognition software, prone to medical misidentifications and grammatical errors. This is unintentional and the practitioner does try to identify and correct these, but some could still be present. Please do not hesitate to contact practitioner for clarification. Plan: * Treatment: * Procedure Codes:??26776 P/M HEAD CLEANING PORTER, INDIV 15 MIN * Images: Billing Information: * Visit Code:?? 48575 Office Visit, Est Pt., Level 3. * Procedure Codes:?? 14810 P/M HEAD CLEANING PORTER, INDIV 15 MIN. * Sign off status: Completed true * Provider:??MICHELINE FARRIS PA-C Date:??08/2023 History and Physical Notes * HPI (History of Present Illness) Category Sub-Category Detail Notes Category Not es Constitutional Jessica Is a pleasant 33-year-old female who presents the office for a weight management follow-up. Patient taking phentermine 15 mg, and is interested in increasing to 30 mg. States that she is motivated to get back on track, but just lost her car, so she has not been able to go to the gym as frequently. States that she is currently dealing with her shoulder injury and going to physical therapy and orthopedics as well as a chiropractor which has also been limiting her exercise. She has been doing better with nutrition, do grocery shopping more, and calorie counting. She is eating more meats and vegetables. Doing this with her which is motivating for her. Physical Examination Category Sub-Category Detail Notes Section Note s General: Age appropriate 33-year-old female, well appearing, no acute distress, speaking in full sentences without respiratory compromise. Well groomed, well developed. Alert, Interactive. Skin: Warm, dry and intact. No lesions/rashes/erythema. HEENT: Normocephalic/atraumatic. EOMI intact. PERRLA. Vision intact. No ptosis or lid lag. Nares without discharge or inflammation. Oral cavity free of plaques or exudates. Dentition well maintained. No pharyngeal erythema. Ear canal without cerumen or discharge. Tympanic membrane visualized including bony structures and cone of light. Neck/Thyroid: Supple, with no lymphadenopathy. Full ROM. No carotid artery bruits auscultated. Thyroid free of nodules and nonenlarged. Lung: Clear to auscultation bilaterally, no wheezes, rales or rhonchi. No barrel chest. Equal chest rise and fall bilaterally. Cardiac: S1 and S2 appreciated. No murmurs/rubs or gallops. DP pulses intact 2+ bilaterally. Capillary refill <2 seconds. Abdomen: Soft, nontender, normoactive bowel sounds. No rebound/guarding. No CVA tenderness. No Masses. Extremities: Bilateral lower extremities with no edema or rubor. No evidence of varicose veins. Equal tone bilaterally. MSK: Bilateral upper and lower extremities 5/5 strength with flexion/extension. Trainmaster strength 5/5. Sensation intact. Neuro: CN II-XI grossly intact. Steady gait with ambulation observed. Symmetric reflexes. Psych: Stable mood and affect
--- OUTSIDE RECORDS SUMMARY | 2024-04-20 09:18 | XMS_ITS ---
Author Organization [facility] Address [address] [place] [address] Care Team Providers Care Industrial Recruiter Name Role Phone MICHELINE FARRIS [phone] MEDICATIONS Medication SIG (Take, Route, Fr equency, Duration) Notes Start Date End Date Status Phentermine HCl 15 MG 1 capsule Orally O nce a day for 30 days 01/06/2024 Active Encounters Encounter Location Date Provider Diagnosis [address] [address] 01/06/2024 MICHELINE FARRIS Other obesity E66.8 ASSESSMENTS Encounter Date Diagnosis Assessment Notes Treatment Notes Treatment Clinical Notes Section Notes 01/06/2024 Other obesity (ICD-10 - E66.8) PLAN OF TREATMENT Medication Medication Name Sig Start Date Stop Date Notes Phentermine HCl 15 MG 1 capsule Orally O nce a day for 30 days 01/06/2024 Next Appt Details Provider Name:MICHELINE FARRIS, 0 05/16/2024 10:30:00 AM, [address] [place], [address], Progress Notes * GRACY BrandanluciaDOB:1990 (33 yo F)Acc No.[id number]:01/06/2024 Patient:??Jessica SALVADOR :1990?Age:33 Y?Sex:Fe male Address:[address] [place] [address] * Refills?? Refill Phentermine HCl Capsule, 15 MG, Orally, 30 Capsule, 1 capsule, Once a day, 30 days, Refills=0 * true * Date:??
--- OUTSIDE RECORDS SUMMARY | 2024-04-20 09:18 | XMS_ITS ---
Author Organization [facility] Address [address] [place] [address] Care Team Providers Care Mobile Application Developer Name Role Phone MICHELINE FARRIS [phone] REASON FOR VISIT Refill Appt MEDICATIONS Medication SIG (Take, Route, Fr equency, Duration) Notes Start Date End Date Status Phentermine HCl 15 MG 1 capsule Orally O nce a day for 30 days 03/06/2024 Active Encounters Encounter Location Date Provider Diagnosis [facility] [address] [place] [id number] 03/06/2024 MICHELINE FARRIS Other obesity E66.8 ASSESSMENTS Encounter Date Diagnosis Assessment Notes Treatment Notes Treatment Clinical Notes Section Notes 03/06/2024 Other obesity (ICD-10 - E66.8) PLAN OF TREATMENT Medication Medication Name Sig Start Date Stop Date Notes Phentermine HCl 15 MG 1 capsule Orally O nce a day for 30 days 03/06/2024 Next Appt Details Provider Name:MICHELINE FARRIS, 0 05/16/2024 10:30:00 AM, [address] [facility], [place], [address], Progress Notes * GRACY BrandanluciaDOB:1990 (33 yo F)Acc No.[id number]:03/06/2024 Patient:??SALVADORJessica :1990?Age:33 Y?Sex:Fe male Address:[address] [place] [address] * Refills?? Refill Phentermine HCl Capsule, 15 MG, Orally, 30 Capsule, 1 capsule, Once a day, 30 days, Refills=0 * true * Date:??
--- OUTSIDE RECORDS SUMMARY | 2024-04-20 09:19 | XMS_ITS | Patient Health Record ---
Author Organization [facility] Address [address] [place] [address] Care Team Providers Care Computer Systems Administrator Name Role Phone MICHELINE FARRIS Unavailable [phone] Unavailable [phone] RICHARDSTORREY DING Unavailable [phone] YOGIKAE Newsome Unavailable [phone] BIRCAROL AMANDA Unavailable [phone] ALLERGIES Allergen (clinical drug ingredient) Drug/Non Drug Allergy documented on EMR Reaction Allergy Type Onset Date Status prednisone Prednisone Unknown Drug Allergy Activ e RESULTS Component Value Reference Range Notes EKG (Not yet reviewed by pro vider) Interpretation: Performing Lab: Notes/Report: ECGDiastolicBP 68 ECGHr 81 ECGPRInterval 162 ECGPWaveAxis 27 ECGQRSDuration 108 ECGQrsWaveAxis 9 ECGQTcInterval 380 ECGQTInterval 344 ECGSystolicBP 126 ECGTWaveAxis -1 RR_DiastolicBP 0 RR_MaxRRInterval 0 RR_MeanHR 0 RR_MeanRRInterval 0 RR_MinRRInterval 0 RR_NumBeats 0 RR_NumNormalBeats 0 RR_SystolicBP 0 REASON FOR REFERRAL No Information MEDICATIONS Medication SIG (Take, Route, Fr equency, [...] 2x/week tob: declines marijuana: declines drug: declines on disability alcohol: social 2x/week tob: declines marijuana: declines drug: declines on disability alcohol: social 2x/week tob: declines marijuana: declines drug: declines on disability alcohol: social 2x/week tob: declines marijuana: declines drug: declines on disability alcohol: social 2x/week tob: declines marijuana: declines drug: declines on disability alcohol: social 2x/week tob: declines marijuana: declines drug: declines on disability alcohol: social 2x/week tob: declines marijuana: declines drug: declines on disability alcohol: social 2x/week tob: declines marijuana: declines drug: declines on disability alcohol: social 2x/week tob: declines marijuana: declines drug: declines PROBLEMS Problem Type ICD Code Onset Dates Problem Status W/U Status Risk SNOMED Code Notes Problem Other obesity (E66.8) Active confirmed 593125136 Problem BMI 40.0-44.9, adult (Z68.41) Active confirmed 797335816 Problem Obesity (BMI 30-39.9) (E66.9) Active confirmed 454766404 Problem BMI 39.0-39.9,adult (Z68.39) Active confirmed 550123601 Problem BMI 38.0-38.9,adult (Z68.38) Active confirmed 467906648 Problem Xrgnjvl-Foxlf-Nc 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) Active confirmed 097212909 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 History of tracheostomy (674914539) VITAL SIGNS Heart Rate 102 /min 04/05/2024 Oximetry 92 % 04/05/2024 Blood pressure diastolic 70 mm Hg 04/05/2024 Height 64 in 04/05/2024 Blood pressure systolic 112 mm Hg 04/05/2024 Weight 231.0 lbs 04/05/2024 BMI 39.65 kg/m2 04/05/2024 Encounters Encounter Location Date Provider Diagnosis [facility] [address] [place] [address] 04/28/[address] [place] [address] 04/30/2023 DELICIA STEPHENS [address] [place] [address] 04/30/2023 TORREY RICHARDS [facility] [address] [place] [address] 05/05/[address] [facility] [address] [place] [address] 05/12/2023 KAE CALIX [facility] [address] [facility] [place] [address] 05/19/2023 KAE CALIX [facility] [address] [place] [address] 05/26/2023 KAE CALIX [facility] [address] [place] [address] 08/19/[address] [facility] [address] [place] [address] 08/31/[address] [facility] [address] [place] [address] 04/21/2023 MICHELINE KALEIGH Other obesity E66.8 ; BMI 40.0-44.9, adult Z68.41 ; Rctalvz-Ccxbp-Jigoe disease G60.0 and Tracheostomy dependent Z93.[address] [facility] [address] [place] [address] 06/02/2023 MICHELINE KALEIGH Other obesity E66.8 ; BMI 40.0-44.9, adult Z68.41 ; Pkmmnjo-Dyjia-Jvzdk disease G60.0 ; Tracheostomy dependent Z93.0 and Screening for cardiovascular condition Z13.[address] [facility] [address] [place] [address] 06/28/2023 MICHELINE KALEIGH Other obesity E66.8 ; BMI 39.0-39.9,adult Z68.39 ; Bdxnmuv-Berrp-Dpwfq disease G60.0 and Tracheostomy dependent Z93.[address] [facility] [address] [place] [address] 07/20/2023 MICHELINE KALEIGH Other obesity E66.8 ; BMI 38.0-38.9,adult Z68.38 ; Lcguelm-Fvkrx-Tltze disease G60.0 and Tracheostomy dependent Z93.[address] [facility] [address] [place] [address] 07/21/2023 MICHELINE KALEIGH [facility] [address] [place] [address] 01/06/2024 CAROL BIRKS Other obesity E66.8 ; BMI 38.0-38.9,adult Z68.38 ; Adiffrd-Xxeme-Rwxik disease G60.0 ; Tracheostomy dependent Z93.0 and BMI 40.0-44.9, adult Z68.41 [facility] [address] [place] [address] 04/05/2024 MICHELINE KALEIGH Obesity (BMI 30-39.9 ) E66.9 ; BMI 39.0-39.9,adult Z68.39 ; Bcxypvw-Amrzo-Zxlxt disease G60.0 and Tracheostomy dependent Z93.0 [address] [facility] [address] [facility] [address] [place] [address] 04/21/2023 MICHELINE KALEIGH [facility] [address] [place] [address] 06/02/2023 MICHELINE KALEIGH Other obesity E66.[address] [facility] [address] [place] [address] 01/06/2024 MICHELINE KALEIGH Other obesity E66.8 [address] [facility] [address] [facility] [address] [place] [address] 03/06/2024 MICHELINE KALEIGH Other obesity E66.8 ASSESSMENTS Encounter Date Diagnosis Assessment Notes Treatment Notes Treatment Clinical Notes Section Notes 04/21/2023 Other obesity (ICD-10 - E66.8) Jessica Is a 31-year-old female who presents the office for weight management follow-up. 01/14/2023:Weight 252.7 pounds, BMI 43.37. Patient welcomed to the practice. Extensively educated on lifestyle modifications including high-protein foods, low carbohydrate snacks, healthy fats, sleep hygiene, stress reduction. Patient provided with educational documentation regarding all of this. 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 After consultation and careful review of medical history, this patient would benefit from Wegovy based off of the following criteria met: Patient is over the age of 18, has a BMI of 40. Additional comorbidities include PCOS. Patient has trialed other methods of weight loss including improving diet, exercise without success over three months. This medication is prescribed by or in consultation with a board certified obesity and weight management physician (Dr. Blake Richards or Dr. Torrey Richards). #Mkjakrk-Xdnqf-Yhxnm disease: Follows with neurologist Dr. Bland. Occasions for this. Does have a tracheostomy, and bracing on bilateral feet. #PCOS: Consider metformin. Will obtain labs prior to next visit Time spent with patient 30 minutes with greater than 50% on patient occasion and care coordination. Patient will follow-up in 4 weeks, sooner as needed. All quetsions answered to patients satisfaction. Patient verbalized understanding of diagnosis and treatments explained. To call sooner prior to next visit it any questions/concerns arise. Case discussed with collaborating physician Pat Richards who reviewed the assessment and plan. Chart, medications, labs, vital signs reviewed. Dictation was accomplished with the use of [employer]bird voice recognition software, prone to medical misidentifications and grammatical errors. This is unintentional and the practitioner does try to identify and correct these, but some could still be present. Please do not hesitate to contact practitioner for clarification. 04/21/2023 BMI 40.0-44.9, adult (ICD-10 - Z68.41) Jessica Is a 31-year-old female who presents the office for weight management follow-up. 01/14/2023:Weight 252.7 pounds, BMI 43.37. Patient welcomed to the practice. Extensively educated on lifestyle modifications including high-protein foods, low carbohydrate snacks, healthy fats, sleep hygiene, stress reduction. Patient provided with educational documentation regarding all of this. 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 After consultation and careful review of medical history, this patient would benefit from Wegovy based off of the following criteria met: Patient is over the age of 19, has a BMI of 40. Additional comorbidities include PCOS. Patient has trialed other methods of weight loss including improving diet, exercise without success over three months. This medication is prescribed by or in consultation with a board certified obesity and weight management physician (Dr. Blake Richards or Dr. Torrey Richards). #Mkfvamf-Ozsap-Sqoqa disease: Follows with neurologist Dr. Bland. Occasions for this. Does have a tracheostomy, and bracing on bilateral feet. #PCOS: Consider metformin. Will obtain labs prior to next visit Time spent with patient 30 minutes with greater than 50% on patient occasion and care coordination. Patient will follow-up in 4 weeks, sooner as needed. All quetsions answered to patients satisfaction. Patient verbalized understanding of diagnosis and treatments explained. To call sooner prior to next visit it any questions/concerns arise. Case discussed with collaborating physician Pat Richards who reviewed the assessment and plan. Chart, medications, labs, vital signs reviewed. Dictation was accomplished with the use of [employer] voice recognition software, prone to medical misidentifications and grammatical errors. This is unintentional and the practitioner does try to identify and correct these, but some could still be present. Please do not hesitate to contact practitioner for clarification. 06/02/2023 Other obesity (ICD-10 - E66.8) Jessica Is a 31-year-old female who presents the office for weight management follow-up. 01/14/2023:Weight 252.7 pounds, BMI 43.37. Patient welcomed to the practice. Extensively educated on lifestyle modifications including high-protein foods, low carbohydrate snacks, healthy fats, sleep hygiene, stress reduction. Patient provided with educational documentation regarding all of this. 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 Will start, follow-up in 4 weeks. #Cvfqaln-Rbobu-Xngon disease: Follows with neurologist Dr. Bland. Occasions for this. Does have a tracheostomy, and bracing on bilateral feet. #PCOS: Consider metformin. Time spent with patient 30 minutes with greater than 50% on patient occasion and care coordination. Patient will follow-up in 4 weeks, sooner as needed. All quetsions answered to patients satisfaction. Patient verbalized understanding of diagnosis and treatments explained. To call sooner prior to next visit it any questions/concerns arise. Case discussed with collaborating physician Pat Richards who reviewed the assessment and plan. Chart, medications, labs, vital signs reviewed. Dictation was accomplished with the use of [employer] voice recognition software, prone to medical misidentifications and grammatical errors. This is unintentional and the practitioner does try to identify and correct these, but some could still be present. Please do not hesitate to contact practitioner for clarification. 06/02/2023 Other obesity (ICD-10 - E66.8) 06/28/2023 Other obesity (ICD-10 - E66.8) Jessica Is a 31-year-old female who presents the office for weight management follow-up. 01/14/2023:Weight 252.7 pounds, BMI 43.37. Patient welcomed to the practice. Extensively educated on lifestyle modifications including high-protein foods, low carbohydrate snacks, healthy fats, sleep hygiene, stress reduction. Patient provided with educational documentation regarding all of this. 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 #Pgfwbrn-Ajrxi-Fghaa disease: Follows with neurologist Dr. Bland. Occasions for this. Does have a tracheostomy, and bracing on bilateral feet. #PCOS: Consider metformin. Time spent with patient 30 minutes with greater than 50% on patient occasion and care coordination. Patient will follow-up in 6-8 weeks, sooner as needed. All quetsions answered to patients satisfaction. Patient verbalized understanding of diagnosis and treatments explained. To call sooner prior to next visit it any questions/concerns arise. Case discussed with collaborating physician Pat Richards who reviewed the assessment and plan. Chart, medications, labs, vital signs reviewed. Dictation was accomplished with the use of [employer] voice recognition software, prone to medical misidentifications and grammatical errors. This is unintentional and the practitioner does try to identify and correct these, but some could still be present. Please do not hesitate to contact practitioner for clarification. 06/28/2023 BMI 39.0-39.9,adult (ICD-10 - Z68.39) Jessica Is a 31-year-old female who presents the office for weight management follow-up. 01/14/2023:Weight 252.7 pounds, BMI 43.37. Patient welcomed to the practice. Extensively educated on lifestyle modifications including high-protein foods, low carbohydrate snacks, healthy fats, sleep hygiene, stress reduction. Patient provided with educational documentation regarding all of this. 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 #Wmxeydw-Rmsmt-Qwhwn disease: Follows with neurologist Dr. Bland. Occasions for this. Does have a tracheostomy, and bracing on bilateral feet. #PCOS: Consider metformin. Time spent with patient 30 minutes with greater than 50% on patient occasion and care coordination. Patient will follow-up in 6-8 weeks, sooner as needed. All quetsions answered to patients satisfaction. Patient verbalized understanding of diagnosis and treatments explained. To call sooner prior to next visit it any questions/concerns arise. Case discussed with collaborating physician Pat Richards who reviewed the assessment and plan. Chart, medications, labs, vital signs reviewed. Dictation was accomplished with the use of [employer] voice recognition software, prone to medical misidentifications and grammatical errors. This is unintentional and the practitioner does try to identify and correct these, but some could still be present. Please do not hesitate to contact practitioner for clarification. 07/20/2023 Other obesity (ICD-10 - E66.8) Jessica Is a 33 year-old female who presents the office for weight management follow-up. 01/14/2023:Weight 252.7 pounds, BMI 43.37. Patient welcomed to the practice. Extensively educated on lifestyle modifications including high-protein foods, low carbohydrate snacks, healthy fats, sleep hygiene, stress reduction. Patient provided with educational documentation regarding all of this. 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 IV hydration information provided today. Refill Phentermine 30 mg sent. Continue diet and exercise habits. #Boaepvu-Qdjjq-Hsvrn disease: Follows with neurologist Dr. Bland. Occasions for this. Does have a tracheostomy, and bracing on bilateral feet. #PCOS: Consider metformin. Time spent with patient 30 minutes with greater than 50% on patient occasion and care coordination. Patient will follow-up in 6-8 weeks, sooner as needed. All quetsions answered to patients satisfaction. Patient verbalized understanding of diagnosis and treatments explained. To call sooner prior to next visit it any questions/concerns arise. Case discussed with collaborating physician Pat Richards who reviewed the assessment and plan. Chart, medications, labs, vital signs reviewed. Dictation was accomplished with the use of [employer] voice recognition software, prone to medical misidentifications and grammatical errors. This is unintentional and the practitioner does try to identify and correct these, but some could still be present. Please do not hesitate to contact practitioner for clarification. 07/20/2023 BMI 38.0-38.9,adult (ICD-10 - Z68.38) Jessica Is a 33 year-old female who presents the office for weight management follow-up. 01/14/2023:Weight 252.7 pounds, BMI 43.37. Patient welcomed to the practice. Extensively educated on lifestyle modifications including high-protein foods, low carbohydrate snacks, healthy fats, sleep hygiene, stress reduction. Patient provided with educational documentation regarding all of this. 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 IV hydration information provided today. Refill Phentermine 30 mg sent. Continue diet and exercise habits. #Qfunoec-Rcdbf-Jibfh disease: Follows with neurologist Dr. Bland. Occasions for this. Does have a tracheostomy, and bracing on bilateral feet. #PCOS: Consider metformin. Time spent with patient 30 minutes with greater than 50% on patient occasion and care coordination. Patient will follow-up in 6-8 weeks, sooner as needed. All quetsions answered to patients satisfaction. Patient verbalized understanding of diagnosis and treatments explained. To call sooner prior to next visit it any questions/concerns arise. Case discussed with collaborating physician Pat Richards who reviewed the assessment and plan. Chart, medications, labs, vital signs reviewed. Dictation was accomplished with the use of [employer] voice recognition software, prone to medical misidentifications and grammatical errors. This is unintentional and the practitioner does try to identify and correct these, but some could still be present. Please do not hesitate to contact practitioner for clarification. 01/06/2024 Other obesity (ICD-10 - E66.8) Jessica Is a 33 year-old female who presents the office for weight management follow-up. 01/14/2023:Weight 252.7 pounds, BMI 43.37. Patient welcomed to the practice. Extensively educated on lifestyle modifications including high-protein foods, low carbohydrate snacks, healthy fats, sleep hygiene, stress reduction. Patient provided with educational documentation regarding all of this. 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 IV hydration information provided today. [...] with patient. Will follow-up in 4-6 weeks. #Kirejas-Iykqi-Thifu disease: Follows with neurologist Dr. Bland. Occasions for this. Does have a tracheostomy, and bracing on bilateral feet. #PCOS: Consider metformin. Time spent with patient 30 minutes with greater than 50% on patient occasion and care coordination. Patient will follow-up in 6-8 weeks, sooner as needed. All quetsions answered to patients satisfaction. Patient verbalized understanding of diagnosis and treatments explained. To call sooner prior to next visit it any questions/concerns arise. Case discussed with collaborating physician Pat Richards who reviewed the assessment and plan. Chart, medications, labs, vital signs reviewed. Dictation was accomplished with the use of [employer] voice recognition software, prone to medical misidentifications and grammatical errors. This is unintentional and the practitioner does try to identify and correct these, but some could still be present. Please do not hesitate to contact practitioner for clarification. 01/06/2024 BMI 38.0-38.9,adult (ICD-10 - Z68.38) Jessica Is a 33 year-old female who presents the office for weight management follow-up. 01/14/2023:Weight 252.7 pounds, BMI 43.37. Patient welcomed to the practice. Extensively educated on lifestyle modifications including high-protein foods, low carbohydrate snacks, healthy fats, sleep hygiene, stress reduction. Patient provided with educational documentation regarding all of this. 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 IV hydration information provided today. [...] with patient. Will follow-up in 4-6 weeks. #Zjaxwhx-Lmxgf-Pvshx disease: Follows with neurologist Dr. Bland. Occasions for this. Does have a tracheostomy, and bracing on bilateral feet. #PCOS: Consider metformin. Time spent with patient 30 minutes with greater than 50% on patient occasion and care coordination. Patient will follow-up in 6-8 weeks, sooner as needed. All quetsions answered to patients satisfaction. Patient verbalized understanding of diagnosis and treatments explained. To call sooner prior to next visit it any questions/concerns arise. Case discussed with collaborating physician Pat Richards who reviewed the assessment and plan. Chart, medications, labs, vital signs reviewed. Dictation was accomplished with the use of [employer] voice recognition software, prone to medical misidentifications and grammatical errors. This is unintentional and the practitioner does try to identify and correct these, but some could still be present. Please do not hesitate to contact practitioner for clarification. 01/06/2024 Other obesity (ICD-10 - E66.8) 03/06/2024 Other obesity (ICD-10 - E66.8) 04/05/2024 Obesity (BMI 30-39.9) (ICD-10 - E66.9) Jessica Is a 33 year-old female who presents the office for weight management follow-up. 01/14/2023:Weight 252.7 pounds, BMI 43.37. Patient welcomed to the practice. Extensively educated on lifestyle modifications including high-protein foods, low carbohydrate snacks, healthy fats, sleep hygiene, stress reduction. Patient provided with educational documentation regarding all of this. 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 IV hydration information provided today. [...] chiropractor for as well as physical therapy. #Lzdhjwf-Uvyfr-Gghma disease: Follows with neurologist Dr. Bland. Occasions [...] Dictation was accomplished with the use of [employer] voice recognition software, prone to medical misidentifications [...] this. 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 IV hydration information provided today. [...] chiropractor for as well as physical therapy. #Oldxfjf-Depih-Vsoau disease: Follows with neurologist Dr. Bland. Occasions [...] Dictation was accomplished with the use of [employer] voice recognition software, prone to medical misidentifications and grammatical errors. This is unintentional and the practitioner does try to identify and correct these, but some could still be present. Please do not hesitate to contact practitioner for clarification. 04/05/2024 Oxfyzoq-Grtis-Caa th disease (ICD-10 - G60.0) Jessica Is a 33 year-old female who presents the office for weight management follow-up. 01/14/2023:Weight 252.7 pounds, BMI 43.37. Patient welcomed to the practice. Extensively educated on lifestyle modifications including high-protein foods, low carbohydrate snacks, healthy fats, sleep hygiene, stress reduction. Patient provided with educational documentation regarding all of this. 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 IV hydration information provided today. [...] chiropractor for as well as physical therapy. #Peyossn-Ckkue-Tegii disease: Follows with neurologist Dr. Bland. Occasions [...] Dictation was accomplished with the use of [employer] voice recognition software, prone to medical misidentifications and grammatical errors. This is unintentional and the practitioner does try to identify and correct these, but some could still be present. Please do not hesitate to contact practitioner for clarification. 01/06/2024 Ucdkxyg-Szcdc-Zcv th disease (ICD-10 - G60.0) Jessica Is a 33 year-old female who presents the office for weight management follow-up. 01/14/2023:Weight 252.7 pounds, BMI 43.37. Patient welcomed to the practice. Extensively educated on lifestyle modifications including high-protein foods, low carbohydrate snacks, healthy fats, sleep hygiene, stress reduction. Patient provided with educational documentation regarding all of this. 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 IV hydration information provided today. [...] with patient. Will follow-up in 4-6 weeks. #Epxqoxk-Ayrmj-Mgfvr disease: Follows with neurologist Dr. Bland. Occasions for this. Does have a tracheostomy, and bracing on bilateral feet. #PCOS: Consider metformin. Time spent with patient 30 minutes with greater than 50% on patient occasion and care coordination. Patient will follow-up in 6-8 weeks, sooner as needed. All quetsions answered to patients satisfaction. Patient verbalized understanding of diagnosis and treatments explained. To call sooner prior to next visit it any questions/concerns arise. Case discussed with collaborating physician Pat Richards who reviewed the assessment and plan. Chart, medications, labs, vital signs reviewed. Dictation was accomplished with the use of [employer] voice recognition software, prone to medical misidentifications and grammatical errors. This is unintentional and the practitioner does try to identify and correct these, but some could still be present. Please do not hesitate to contact practitioner for clarification. 07/20/2023 Ixebjmx-Pkynm-Wqx th disease (ICD-10 - G60.0) Jessica Is a 33 year-old female who presents the office for weight management follow-up. 01/14/2023:Weight 252.7 pounds, BMI 43.37. Patient welcomed to the practice. Extensively educated on lifestyle modifications including high-protein foods, low carbohydrate snacks, healthy fats, sleep hygiene, stress reduction. Patient provided with educational documentation regarding all of this. 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 IV hydration information provided today. Refill Phentermine 30 mg sent. Continue diet and exercise habits. #Xmpdsjp-Wurwv-Capyt disease: Follows with neurologist Dr. Bland. Occasions for this. Does have a tracheostomy, and bracing on bilateral feet. #PCOS: Consider metformin. Time spent with patient 30 minutes with greater than 50% on patient occasion and care coordination. Patient will follow-up in 6-8 weeks, sooner as needed. All quetsions answered to patients satisfaction. Patient verbalized understanding of diagnosis and treatments explained. To call sooner prior to next visit it any questions/concerns arise. Case discussed with collaborating physician Pat Richards who reviewed the assessment and plan. Chart, medications, labs, vital signs reviewed. Dictation was accomplished with the use of [employer] voice recognition software, prone to medical misidentifications and grammatical errors. This is unintentional and the practitioner does try to identify and correct these, but some could still be present. Please do not hesitate to contact practitioner for clarification. 06/28/2023 Vhvzozb-Xkypc-Rvk th disease (ICD-10 - G60.0) Jessica Is a 31-year-old female who presents the office for weight management follow-up. 01/14/2023:Weight 252.7 pounds, BMI 43.37. Patient welcomed to the practice. Extensively educated on lifestyle modifications including high-protein foods, low carbohydrate snacks, healthy fats, sleep hygiene, stress reduction. Patient provided with educational documentation regarding all of this. 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 #Uxupsgm-Lcokm-Ehsrv disease: Follows with neurologist Dr. Bland. Occasions for this. Does have a tracheostomy, and bracing on bilateral feet. #PCOS: Consider metformin. Time spent with patient 30 minutes with greater than 50% on patient occasion and care coordination. Patient will follow-up in 6-8 weeks, sooner as needed. All quetsions answered to patients satisfaction. Patient verbalized understanding of diagnosis and treatments explained. To call sooner prior to next visit it any questions/concerns arise. Case discussed with collaborating physician Pat Richards who reviewed the assessment and plan. Chart, medications, labs, vital signs reviewed. Dictation was accomplished with the use of [employer] voice recognition software, prone to medical misidentifications and grammatical errors. This is unintentional and the practitioner does try to identify and correct these, but some could still be present. Please do not hesitate to contact practitioner for clarification. 06/02/2023 BMI 40.0-44.9, adult (ICD-10 - Z68.41) Jessica Is a 31-year-old female who presents the office for weight management follow-up. 01/14/2023:Weight 252.7 pounds, BMI 43.37. Patient welcomed to the practice. Extensively educated on lifestyle modifications including high-protein foods, low carbohydrate snacks, healthy fats, sleep hygiene, stress reduction. Patient provided with educational documentation regarding all of this. 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 Will start, follow-up in 4 weeks. #Suqtaxr-Pycqs-Kgbpy disease: Follows with neurologist Dr. Bland. Occasions for this. Does have a tracheostomy, and bracing on bilateral feet. #PCOS: Consider metformin. Time spent with patient 30 minutes with greater than 50% on patient occasion and care coordination. Patient will follow-up in 4 weeks, sooner as needed. All quetsions answered to patients satisfaction. Patient verbalized understanding of diagnosis and treatments explained. To call sooner prior to next visit it any questions/concerns arise. Case discussed with collaborating physician Pat Richards who reviewed the assessment and plan. Chart, medications, labs, vital signs reviewed. Dictation was accomplished with the use of [employer] voice recognition software, prone to medical misidentifications and grammatical errors. This is unintentional and the practitioner does try to identify and correct these, but some could still be present. Please do not hesitate to contact practitioner for clarification. 04/21/2023 Opixsup-Nvomo-Nps th disease (ICD-10 - G60.0) Jessica Is a 31-year-old female who presents the office for weight management follow-up. 01/14/2023:Weight 252.7 pounds, BMI 43.37. Patient welcomed to the practice. Extensively educated on lifestyle modifications including high-protein foods, low carbohydrate snacks, healthy fats, sleep hygiene, stress reduction. Patient provided with educational documentation regarding all of this. 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 After consultation and careful review of medical history, this patient would benefit from Wegovy based off of the following criteria met: Patient is over the age of 18, has a BMI of 40. Additional comorbidities include PCOS. Patient has trialed other methods of weight loss including improving diet, exercise without success over three months. This medication is prescribed by or in consultation with a board certified obesity and weight management physician (Dr. Blake Richards or Dr. Torrey Richards). #Wdscmbv-Igwlo-Pgkyz disease: Follows with neurologist Dr. Bland. Occasions for this. Does have a tracheostomy, and bracing on bilateral feet. #PCOS: Consider metformin. Will obtain labs prior to next visit Time spent with patient 30 minutes with greater than 50% on patient occasion and care coordination. Patient will follow-up in 4 weeks, sooner as needed. All quetsions answered to patients satisfaction. Patient verbalized understanding of diagnosis and treatments explained. To call sooner prior to next visit it any questions/concerns arise. Case discussed with collaborating physician aPt Richards who reviewed the assessment and plan. Chart, medications, labs, vital signs reviewed. Dictation was accomplished with the use of [employer] voice recognition software, prone to medical misidentifications and grammatical errors. This is unintentional and the practitioner does try to identify and correct these, but some could still be present. Please do not hesitate to contact practitioner for clarification. 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 01/14/2023:Weight 252.7 pounds, BMI 43.37. Patient welcomed to the practice. Extensively educated on lifestyle modifications including high-protein foods, low carbohydrate snacks, healthy fats, sleep hygiene, stress reduction. Patient provided with educational documentation regarding all of this. 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 After consultation and careful review of medical history, this patient would benefit from Wegovy based off of the following criteria met: Patient is over the age of 19, has a BMI of 40. Additional comorbidities include PCOS. Patient has trialed other methods of weight loss including improving diet, exercise without success over three months. This medication is prescribed by or in consultation with a board certified obesity and weight management physician (Dr. Blake Richards or Dr. Torrey Richards). #Nptyfjh-Bnydz-Imjkr disease: Follows with neurologist Dr. Bland. Occasions for this. Does have a tracheostomy, and bracing on bilateral feet. #PCOS: Consider metformin. Will obtain labs prior to next visit Time spent with patient 30 minutes with greater than 50% on patient occasion and care coordination. Patient will follow-up in 4 weeks, sooner as needed. All quetsions answered to patients satisfaction. Patient verbalized understanding of diagnosis and treatments explained. To call sooner prior to next visit it any questions/concerns arise. Case discussed with collaborating physician Pat Richards who reviewed the assessment and plan. Chart, medications, labs, vital signs reviewed. Dictation was accomplished with the use of [employer] voice recognition software, prone to medical misidentifications and grammatical errors. This is unintentional and the practitioner does try to identify and correct these, but some could still be present. Please do not hesitate to contact practitioner for clarification. 06/02/2023 Bqbqhok-Fyqto-Mko th disease (ICD-10 - G60.0) Jessica Is a 31-year-old female who presents the office for weight management follow-up. 01/14/2023:Weight 252.7 pounds, BMI 43.37. Patient welcomed to the practice. Extensively educated on lifestyle modifications including high-protein foods, low carbohydrate snacks, healthy fats, sleep hygiene, stress reduction. Patient provided with educational documentation regarding all of this. 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 Will start, follow-up in 4 weeks. #Onvulet-Bcpfz-Mjxta disease: Follows with neurologist Dr. Balnd. Occasions for this. Does have a tracheostomy, and bracing on bilateral feet. #PCOS: Consider metformin. Time spent with patient 30 minutes with greater than 50% on patient occasion and care coordination. Patient will follow-up in 4 weeks, sooner as needed. All quetsions answered to patients satisfaction. Patient verbalized understanding of diagnosis and treatments explained. To call sooner prior to next visit it any questions/concerns arise. Case discussed with collaborating physician Pat Richards who reviewed the assessment and plan. Chart, medications, labs, vital signs reviewed. Dictation was accomplished with the use of [employer] voice recognition software, prone to medical misidentifications and grammatical errors. This is unintentional and the practitioner does try to identify and correct these, but some could still be present. Please do not hesitate to contact practitioner for clarification. 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 01/14/2023:Weight 252.7 pounds, BMI 43.37. Patient welcomed to the practice. Extensively educated on lifestyle modifications including high-protein foods, low carbohydrate snacks, healthy fats, sleep hygiene, stress reduction. Patient provided with educational documentation regarding all of this. 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 #Lfzxrww-Vjozv-Fhplm disease: Follows with neurologist Dr. Bland. Occasions for this. Does have a tracheostomy, and bracing on bilateral feet. #PCOS: Consider metformin. Time spent with patient 30 minutes with greater than 50% on patient occasion and care coordination. Patient will follow-up in 6-8 weeks, sooner as needed. All quetsions answered to patients satisfaction. Patient verbalized understanding of diagnosis and treatments explained. To call sooner prior to next visit it any questions/concerns arise. Case discussed with collaborating physician Pat Richards who reviewed the assessment and plan. Chart, medications, labs, vital signs reviewed. Dictation was accomplished with the use of [employer] voice recognition software, prone to medical misidentifications and grammatical errors. This is unintentional and the practitioner does try to identify and correct these, but some could still be present. Please do not hesitate to contact practitioner for clarification. 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 01/14/2023:Weight 252.7 pounds, BMI 43.37. Patient welcomed to the practice. Extensively educated on lifestyle modifications including high-protein foods, low carbohydrate snacks, healthy fats, sleep hygiene, stress reduction. Patient provided with educational documentation regarding all of this. 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 IV hydration information provided today. Refill Phentermine 30 mg sent. Continue diet and exercise habits. #Immzepp-Duxfi-Ybymf disease: Follows with neurologist Dr. Bland. Occasions for this. Does have a tracheostomy, and bracing on bilateral feet. #PCOS: Consider metformin. Time spent with patient 30 minutes with greater than 50% on patient occasion and care coordination. Patient will follow-up in 6-8 weeks, sooner as needed. All quetsions answered to patients satisfaction. Patient verbalized understanding of diagnosis and treatments explained. To call sooner prior to next visit it any questions/concerns arise. Case discussed with collaborating physician Pat Richards who reviewed the assessment and plan. Chart, medications, labs, vital signs reviewed. Dictation was accomplished with the use of [employer] voice recognition software, prone to medical misidentifications and grammatical errors. This is unintentional and the practitioner does try to identify and correct these, but some could still be present. Please do not hesitate to contact practitioner for clarification. 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 01/14/2023:Weight 252.7 pounds, BMI 43.37. Patient welcomed to the practice. Extensively educated on lifestyle modifications including high-protein foods, low carbohydrate snacks, healthy fats, sleep hygiene, stress reduction. Patient provided with educational documentation regarding all of this. 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 IV hydration information provided today. [...] with patient. Will follow-up in 4-6 weeks. #Lzmfvzw-Pmjie-Ikwvg disease: Follows with neurologist Dr. Bland. Occasions for this. Does have a tracheostomy, and bracing on bilateral feet. #PCOS: Consider metformin. Time spent with patient 30 minutes with greater than 50% on patient occasion and care coordination. Patient will follow-up in 6-8 weeks, sooner as needed. All quetsions answered to patients satisfaction. Patient verbalized understanding of diagnosis and treatments explained. To call sooner prior to next visit it any questions/concerns arise. Case discussed with collaborating physician Pat Richards who reviewed the assessment and plan. Chart, medications, labs, vital signs reviewed. Dictation was accomplished with the use of [employer] voice recognition software, prone to medical misidentifications [...] this. 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 IV hydration information provided today. [...] chiropractor for as well as physical therapy. #Sggcshk-Lrvyc-Hgvmu disease: Follows with neurologist Dr. Bland. Occasions [...] Dictation was accomplished with the use of [employer] voice recognition software, prone to medical misidentifications and grammatical errors. This is unintentional and the practitioner does try to identify and correct these, but some could still be present. Please do not hesitate to contact practitioner for clarification. 01/06/2024 BMI 40.0-44.9, adult (ICD-10 - Z68.41) Jessica Is a 33 year-old female who presents the office for weight management follow-up. 01/14/2023:Weight 252.7 pounds, BMI 43.37. Patient welcomed to the practice. Extensively educated on lifestyle modifications including high-protein foods, low carbohydrate snacks, healthy fats, sleep hygiene, stress reduction. Patient provided with educational documentation regarding all of this. 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 IV hydration information provided today. [...] with patient. Will follow-up in 4-6 weeks. #Ndqvoip-Fpacr-Pcpld disease: Follows with neurologist Dr. Bland. Occasions for this. Does have a tracheostomy, and bracing on bilateral feet. #PCOS: Consider metformin. Time spent with patient 30 minutes with greater than 50% on patient occasion and care coordination. Patient will follow-up in 6-8 weeks, sooner as needed. All quetsions answered to patients satisfaction. Patient verbalized understanding of diagnosis and treatments explained. To call sooner prior to next visit it any questions/concerns arise. Case discussed with collaborating physician Pat Richards who reviewed the assessment and plan. Chart, medications, labs, vital signs reviewed. Dictation was accomplished with the use of [employer] voice recognition software, prone to medical misidentifications and grammatical errors. This is unintentional and the practitioner does try to identify and correct these, but some could still be present. Please do not hesitate to contact practitioner for clarification. 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 01/14/2023:Weight 252.7 pounds, BMI 43.37. Patient welcomed to the practice. Extensively educated on lifestyle modifications including high-protein foods, low carbohydrate snacks, healthy fats, sleep hygiene, stress reduction. Patient provided with educational documentation regarding all of this. 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 Will start, follow-up in 4 weeks. #Jmmtrkb-Aybux-Lhhbu disease: Follows with neurologist Dr. Bland. Occasions for this. Does have a tracheostomy, and bracing on bilateral feet. #PCOS: Consider metformin. Time spent with patient 30 minutes with greater than 50% on patient occasion and care coordination. Patient will follow-up in 4 weeks, sooner as needed. All quetsions answered to patients satisfaction. Patient verbalized understanding of diagnosis and treatments explained. To call sooner prior to next visit it any questions/concerns arise. Case discussed with collaborating physician Pat Richards who reviewed the assessment and plan. Chart, medications, labs, vital signs reviewed. Dictation was accomplished with the use of [employer] voice recognition software, prone to medical misidentifications and grammatical errors. This is unintentional and the practitioner does try to identify and correct these, but some could still be present. Please do not hesitate to contact practitioner for clarification. 06/02/2023 Screening for cardiovascular condition (ICD-10 - Z13.6) Jessica Is a 31-year-old female who presents the office for weight management follow-up. 01/14/2023:Weight 252.7 pounds, BMI 43.37. Patient welcomed to the practice. Extensively educated on lifestyle modifications including high-protein foods, low carbohydrate snacks, healthy fats, sleep hygiene, stress reduction. Patient provided with educational documentation regarding all of this. 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 Will start, follow-up in 4 weeks. #Hgykxgo-Mggrs-Xqstj disease: Follows with neurologist Dr. Bland. Occasions for this. Does have a tracheostomy, and bracing on bilateral feet. #PCOS: Consider metformin. Time spent with patient 30 minutes with greater than 50% on patient occasion and care coordination. Patient will follow-up in 4 weeks, sooner as needed. All quetsions answered to patients satisfaction. Patient verbalized understanding of diagnosis and treatments explained. To call sooner prior to next visit it any questions/concerns arise. Case discussed with collaborating physician Pat Richards who reviewed the assessment and plan. Chart, medications, labs, vital signs reviewed. Dictation was accomplished with the use of [employer] voice recognition software, prone to medical misidentifications and grammatical errors. This is unintentional and the practitioner does try to identify and correct these, but some could still be present. Please do not hesitate to contact practitioner for clarification. PLAN OF TREATMENT Pending Test Test Name Order Date EKG 06/02/2023 Next Appt Details Provider Name:MICHELINE FARRIS, Brittney 05/16/2024 10:30:00 AM, [address], [place], [address], Insurance Providers Payer Name Payer Address Payer Phone Subscriber Number Group Number Insured Name Patient Relationship to Insured Coverage Start Date Coverage End Date [employer] or Options [address] [place] [id number] [place] Self - patient is the insured 2 MEDICATIONS ADMINISTERED Medication Instructions Date of Administration Dosage Notes Semaglutide 02/11/2023 0.25 sema 0.25mg Semaglutide 02/17/2023 0.25 mg LOT # [id number] 0.25MG Semaglutide 02/23/2023 0.25 mg lot# [id number] Semaglutide 03/02/2023 lot#[id number] 0.25mg Semaglutide 03/11/2023 0.25 mg LLQ SQ Semaglutide 03/17/2023 0.5 mg Semaglutide 03/23/2023 0.5 mg LRQ SQ Semaglutide 03/29/2023 Semaglutide 04/05/2023 0.5 mg LRQ SQ Semaglutide 04/12/2023 1mg Semaglutide 04/21/2023 1 mg Semaglutide 04/30/2023 1 mg Semaglutide 05/05/2023 1 mg Semaglutide 05/12/2023 1 mg Semaglutide 05/19/2023 1 MEDICAL (GENERAL) HISTORY Medical History History ICD Code tracheotomy 2006 char[place] dougie tooth,diagnosed at 11 year s old (vocal cords, muscles) IgA nephropathy PCOS Surgical History Surgery Date(Month/Year) tracheotomy c section Hospitalization History Reason Date(Month/Year) tracheotomy c section
[2024-04-20 11:11] LABS: Influenza A PCR NEGATIVE (Negative); Influenza B PCR NEGATIVE (Negative); Resp Syncy Virus RNA Qual PCR NEGATIVE (Negative); SARS COV2 PCR INHOUSE NEGATIVE (Negative)
== END 2024-04-20 09:44 | disposition home or self-care (01) ==
PROVIDERS: PCP Internal Medicine; Visit Provider Hospitalist
DX: B34.9 Viral infection, unspecified (principal); G60.0 Hereditary motor and sensory neuropathy; J45.41 Moderate persistent asthma with (acute) exacerbation; R09.02 Hypoxemia; Z93.0 Tracheostomy status; K21.9 Gastro-esophageal reflux disease without esophagitis
CPT/HCPCS: 99214; G2211

== ENCOUNTER → 2024-04-20 09:09 | Outpatient (BNVA) | payer OTHER, SELFPAY | PROVIDERS: PCP Internal Medicine; Visit Provider Hospitalist | DX: O99.511 Diseases of the respiratory system complicating pregnancy, first trimester (principal); J96.11 Chronic respiratory failure with hypoxia; B34.9 Viral infection, unspecified; J45.41 Moderate persistent asthma with (acute) exacerbation; O26.891 Other specified pregnancy related conditions, first trimester; K21.9 Gastro-esophageal reflux disease without esophagitis; G60.0 Hereditary motor and sensory neuropathy; Z3A.11 11 weeks gestation of pregnancy; Z23 Encounter for immunization; Z93.0 Tracheostomy status | CPT/HCPCS: 0241U; 94640; 96372; 99212; J2919 ==

== ENCOUNTER 2024-06-14 10:09 | Outpatient (REF) | payer OTHER, SELFPAY ==
--- NOTE | ~2024-06-14 | XR_ITS ---
CLINICAL HISTORY: R04.2 - Hemoptysis 2 view chest Comparison: CR/SR - XR CHEST 2V - 05/04/23 11:42 EST CR/TN/SR - XR CHEST 2V - 03/13/23 17:33 EST CR/SR - XR CHEST 2V - 11/11/22 11:47 EDT Findings: No consolidation or pneumothorax/pleural effusion. Mild peribronchial wall thickening. Cardiomediastinal silhouette is normal. No mediastinal shift or tracheal deviation. Osseous structures intact. Endotracheal tube present. Impression: 1. Mild central bronchial wall thickening. 2. No airspace disease. This document has been electronically signed by: Kg Farrell MD on 06/14/2024 11:56:44
[2024-06-14 11:53] LABS: MANUAL DIFF FLAG NO
--- OUTSIDE RECORDS SUMMARY | 2024-06-14 12:00 | XMS_ITS ---
Author Organization [facility] Address [address] [place] [address] Care Team Providers Care Learning Technologist Name Role Phone MICHELINE FARRIS [phone] REASON FOR VISIT Refill Appt MEDICATIONS Medication SIG (Take, Route, Fr equency, Duration) Notes Start Date End Date Status Phentermine HCl 15 MG 1 capsule Orally O nce a day for 30 days 03/06/2024 Active Encounters Encounter Location Date Provider Diagnosis [facility] [address] [place] [id number] 03/06/2024 MICHELINE FARRIS Other obesity E66.8 ASSESSMENTS Encounter Date Diagnosis Assessment Notes Treatment Notes Treatment Clinical Notes Section Notes 03/06/2024 Other obesity (ICD-10 - E66.8) PLAN OF TREATMENT Medication Medication Name Sig Start Date Stop Date Notes Phentermine HCl 15 MG 1 capsule Orally O nce a day for 30 days 03/06/2024 Next Appt Details Provider Name:MICHELINE FARRIS, 0 06/28/2024 10:15:00 AM, [address] [facility], [place], [address], Progress Notes * GRACY BrandanluciaDOB:1990 (33 yo F)Acc No.[id number]:03/06/2024 Patient:??SALVADORJessica :1990?Age:33 Y?Sex:Fe male Address:[address] [place] [id number] * Refills?? Refill Phentermine HCl Capsule, 15 MG, Orally, 30 Capsule, 1 capsule, Once a day, 30 days, Refills=0 * true * Date:??
--- OUTSIDE RECORDS SUMMARY | 2024-06-14 12:00 | XMS_ITS ---
Author Organization [facility] Address [address] [place] [address] Care Team Providers Care Pot Lining Supervisor Name Role Phone KALEIGHSHILOH KOHLERY Unavailable [phone] ALLERGIES Allergen (clinical drug ingredient) Drug/Non Drug Allergy documented on EMR Reaction Allergy Type Onset Date Status prednisone Prednisone Unknown Drug Allergy Activ e REASON FOR VISIT Patient presents for weight management follow up. Previous weight was 231lbs, current weight standing at 224lbs. No acute concerns needed to be addressed MEDICATIONS Medication SIG (Take, Route, Fr equency, Duration) Notes Start Date End Date Status Phentermine HCl 30 MG 1 capsule Orally O nce a day for 30 days 05/16/2024 Active SOCIAL HISTORY Tobacco Use: Social History [...] W/U Status Risk SNOMED Code Notes Problem PCOS (polycystic ovarian syndrome) (E28.2) Active confirmed VITAL SIGNS Heart Rate 99 /min 05/16/2024 Blood pressure systolic 116 mm Hg 05/16/19 25 Blood pressure diastolic 64 mm Hg 025 Weight 224.0 lbs 05/16/2024 BMI 38.45 kg/m2 05/16/2024 Height 64 in 05/16/2024 Oximetry 92 % 05/16/2024 Encounters Encounter Location Date Provider Diagnosis [facility] [address] [place] [address] 05/16/2024 MICHELINE FARRIS Obesity (BMI 30-39.9 ) E66.9 ; BMI 38.0-38.9,adult Z68.38 ; Hcdqats-Eishu-Kyndt disease G60.0 and 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 01/14/2023:Weight 252.7 pounds, BMI 43.37. Patient welcomed to the practice. Extensively educated on lifestyle modifications including high-protein foods, low carbohydrate snacks, healthy fats, sleep hygiene, stress reduction. Patient provided with educational documentation regarding all of this. Patient does have a progressive condition Igjxcla-Otihr-Jwwmy that affects her vocal cords, and her [...] chiropractor for as well as physical therapy. 05/16/2024: Weight 224, BMI 38. Patient congratulated and effort, continuing to lose slow, steady weight. Feeling really well on phentermine 30 mg and is not interested in increasing dose. States that she is very pleased with the progress that she has been making, has been exercising regularly, and portions have improved significantly. #Xdzwlmr-Dwyov-Megzh disease: Follows with neurologist Dr. Bland. Occasions for this. Does have a tracheostomy, and bracing on bilateral feet. #PCOS: Consider metformin. Time spent with patient 30 minutes with greater than 50% on patient occasion and care coordination. Patient will follow-up in 4-6 weeks, sooner as needed. All quetsions answered to patients satisfaction. Patient verbalized understanding of diagnosis and treatments explained. To call sooner prior to next visit it any questions/concerns arise. Case discussed with collaborating physician Pat Richards who reviewed the assessment and plan. Chart, medications, labs, vital signs reviewed. Dictation was accomplished with the use of [employer] voice recognition software, prone to medical misidentifications and grammatical errors. This is unintentional and the practitioner does try to identify and correct these, but some could still be present. Please do not hesitate to contact practitioner for clarification. 05/16/2024 BMI 38.0-38.9,adult (ICD-10 - Z68.38) Jessica Is a 33 year-old female who presents the office for weight management follow-up. 01/14/2023:Weight 252.7 pounds, BMI 43.37. Patient welcomed to the practice. Extensively educated on lifestyle modifications including high-protein foods, low carbohydrate snacks, healthy fats, sleep hygiene, stress reduction. Patient provided with educational documentation regarding all of this. Patient does have a progressive condition Dtzcqht-Hqruz-Eqiqe that affects her vocal cords, and her [...] chiropractor for as well as physical therapy. 05/16/2024: Weight 224, BMI 38. Patient congratulated and effort, continuing to lose slow, steady weight. Feeling really well on phentermine 30 mg and is not interested in increasing dose. States that she is very pleased with the progress that she has been making, has been exercising regularly, and portions have improved significantly. #Ciwzkan-Imntv-Txpvp disease: Follows with neurologist Dr. Bland. Occasions for this. Does have a tracheostomy, and bracing on bilateral feet. #PCOS: Consider metformin. Time spent with patient 30 minutes with greater than 50% on patient occasion and care coordination. Patient will follow-up in 4-6 weeks, sooner as needed. All quetsions answered to patients satisfaction. Patient verbalized understanding of diagnosis and treatments explained. To call sooner prior to next visit it any questions/concerns arise. Case discussed with collaborating physician Pat Richards who reviewed the assessment and plan. Chart, medications, labs, vital signs reviewed. Dictation was accomplished with the use of [employer] voice recognition software, prone to medical misidentifications and grammatical errors. This is unintentional and the practitioner does try to identify and correct these, but some could still be present. Please do not hesitate to contact practitioner for clarification. 05/16/2024 Cvmovnu-Nrkfi-U ooth disease (ICD-10 - G60.0) Jessica Is a 33 year-old female who presents the office for weight management follow-up. 01/14/2023:Weight 252.7 pounds, BMI 43.37. Patient welcomed to the practice. Extensively educated on lifestyle modifications including high-protein foods, low carbohydrate snacks, healthy fats, sleep hygiene, stress reduction. Patient provided with educational documentation regarding all of this. Patient does have a progressive condition Xdvimgv-Awfhp-Aegyl that affects her vocal cords, and her [...] chiropractor for as well as physical therapy. 05/16/2024: Weight 224, BMI 38. Patient congratulated and effort, continuing to lose slow, steady weight. Feeling really well on phentermine 30 mg and is not interested in increasing dose. States that she is very pleased with the progress that she has been making, has been exercising regularly, and portions have improved significantly. #Mqwmatk-Qagdd-Ruuop disease: Follows with neurologist Dr. Bland. Occasions for this. Does have a tracheostomy, and bracing on bilateral feet. #PCOS: Consider metformin. Time spent with patient 30 minutes with greater than 50% on patient occasion and care coordination. Patient will follow-up in 4-6 weeks, sooner as needed. All quetsions answered to patients satisfaction. Patient verbalized understanding of diagnosis and treatments explained. To call sooner prior to next visit it any questions/concerns arise. Case discussed with collaborating physician Pat Richards who reviewed the assessment and plan. Chart, medications, labs, vital signs reviewed. Dictation was accomplished with the use of [employer] voice recognition software, prone to medical misidentifications and grammatical errors. This is unintentional and the practitioner does try to identify and correct these, but some could still be present. Please do not hesitate to contact practitioner for clarification. 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 01/14/2023:Weight 252.7 pounds, BMI 43.37. Patient welcomed to the practice. Extensively educated on lifestyle modifications including high-protein foods, low carbohydrate snacks, healthy fats, sleep hygiene, stress reduction. Patient provided with educational documentation regarding all of this. Patient does have a progressive condition Klfgkpr-Rzqvv-Mbwlm that affects her vocal cords, and her [...] chiropractor for as well as physical therapy. 05/16/2024: Weight 224, BMI 38. Patient congratulated and effort, continuing to lose slow, steady weight. Feeling really well on phentermine 30 mg and is not interested in increasing dose. States that she is very pleased with the progress that she has been making, has been exercising regularly, and portions have improved significantly. #Cborbjh-Uzqpk-Amnks disease: Follows with neurologist Dr. Bland. Occasions for this. Does have a tracheostomy, and bracing on bilateral feet. #PCOS: Consider metformin. Time spent with patient 30 minutes with greater than 50% on patient occasion and care coordination. Patient will follow-up in 4-6 weeks, sooner as needed. All quetsions answered to patients satisfaction. Patient verbalized understanding of diagnosis and treatments explained. To call sooner prior to next visit it any questions/concerns arise. Case discussed with collaborating physician Pat Richards who reviewed the assessment and plan. Chart, medications, labs, vital signs reviewed. Dictation was accomplished with the use of [employer] voice recognition software, prone to medical misidentifications [...] O nce a day for 30 days 05/16/2024 Next Appt Details Provider Name:Brittney LAWRENCE 06/28/2024 10:15:00 AM, [address] [facility], [place], [address], Progress Notes * Jessica DUBOSEDOB:1990 (33 yo F)Acc No.[id number]:05/16/2024 Patient:??Jessica DUBOSE Provider:??MICHELINE FARRIS PA-C :1990?Age:33 Y?Sex:Fe male Date:05/16/2024 Address:[address] [place], [place] [id number] Subjective: * Chief Complaints: * ?1. Patient presents fo r weight management follow up. Previous weight was 231lbs, current weight standing at 224lbs. No acute concerns needed to be addressed. * HPI: ?Constitutional:? Jessica Is a pleasant 33-year-old female who presents the office for a weight management follow-up. Patient is currently taking phentermine 30 mg with compliance, without any side effects. Has lost weight since last visit and she is pleased. Great balance with portion control and nutrition. Focusing on her steps and increasing those especially with the cooler weather. Eating more protein and veggies. She states she is feeling great and she does not want to change dose of phentermine at this time. * ROS:?Constitutional: Patient denies any excessive fatigue [...] years old (vocal cords, muscles), IgA nephropathy, PCOS (polycystic ovarian syndrome). * Surgical History:??tracheoto my 2006, c section . * Hospitalization/Major Diagno stic Procedure:??tracheotomy , c section . * Family History:??Father: phillip loomis.??Mother: alive 49 yrs.??1 brother(s) , 2 sister(s) - healthy. 1 daughter(s) - healthy. .?? grandfather: heart disease, stroke, no cancer mother: obesity. * Social History:?Tobacco Use:??Tobacco Use/Smoking??Are you a??nonsmoker.?on disability ???alcohol: social 2x/week ???tob: declines ???marijuana: declines ???drug: declines. * Medications:??Taking Phenter mine HCl 30 MG Capsule 1 capsule Orally Once a day , Medication List reviewed and reconciled with the patient * Allergies:??Prednisone. Objective: * Vitals:??HR:99/min, BP:116/6 4mm Hg, Wt:224.0lbs, BMI:38.45Index, Ht: 64 in, Oxygen sat %:92%. * [...] and lower extremities 5/5 strength with flexion/extension. Addiction Medicine Physician strength 5/5. Sensation intact. ?Neuro: CN II-XI grossly intact. Steady gait with ambulation observed. Symmetric reflexes. ?Psych: Stable mood and affect. 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 Jessica Is a 33 year-old fe male who presents the office for weight management follow-up. 01/14/2023:Weight 252.7 pounds, BMI 43.37. Patient welcomed to the practice. Extensively educated on lifestyle modifications including high-protein foods, low carbohydrate snacks, healthy fats, sleep hygiene, stress reduction. Patient provided with educational documentation regarding all of this. Patient does have a progressive condition Mvggzbq-Vjlyb-Tvxye that affects her vocal cords, and her [...] chiropractor for as well as physical therapy. 05/16/2024: Weight 224, BMI 38. Patient congratulated and effort, continuing to lose slow, steady weight. Feeling really well on phentermine 30 mg and is not interested in increasing dose. States that she is very pleased with the progress that she has been making, has been exercising regularly, and portions have improved significantly. #Udsmpyt-Nchee-Wvobh disease: Follows with neurologist Dr. Bland. Occasions for this. Does have a tracheostomy, and bracing on bilateral feet. #PCOS: Consider metformin. Time spent with patient 30 minutes with greater than 50% on patient occasion and care coordination. Patient will follow-up in 4-6 weeks, sooner as needed. All quetsions answered to patients satisfaction. Patient verbalized understanding of diagnosis and treatments explained. To call sooner prior to next visit it any questions/concerns arise. Case discussed with collaborating physician Pat Richards who reviewed the assessment and plan. Chart, medications, labs, vital signs reviewed. Dictation was accomplished with the use of [employer] voice recognition software, prone to medical misidentifications and grammatical errors. This is unintentional and the practitioner does try to identify and correct these, but some could still be present. Please do not hesitate to contact practitioner for clarification. Plan: * Treatment: * Procedure Codes:??04665 P/M DIRECTOR OF TECHNOLOGY, INDIV 15 MIN * Images: Billing Information: * Visit Code:?? 56420 Office Visit, Est Pt., Level 3. * Procedure Codes:?? 13727 P/M DIRECTOR OF TECHNOLOGY, INDIV 15 MIN. * Sign off status: Completed true * Provider:??MICHELINE FARRIS PA-C Date:??05/03 History and Physical Notes * HPI (History of Present Illness) Category Sub-Category Detail Notes Category Not es Constitutional Jessica Is a pleasant 33-year-old female who presents the office for a weight management follow-up. Patient is currently taking phentermine 30 mg with compliance, without any side effects. Has lost weight since last visit and she is pleased. Great balance with portion control and nutrition. Focusing on her steps and increasing those especially with the cooler weather. Eating more protein and veggies. She states she is feeling great and she does not want to change dose of phentermine at this time. Physical Examination Category Sub-Category Detail Notes Section [...] and lower extremities 5/5 strength with flexion/extension. Addiction Medicine Physician strength 5/5. Sensation intact. Neuro: CN II-XI grossly intact. Steady gait with ambulation observed. Symmetric reflexes. Psych: Stable mood and affect
--- OUTSIDE RECORDS SUMMARY | 2024-06-14 12:00 | XMS_ITS | Clinical Summary ---
Author Organization [facility] Facility Address [address] [address] Care Team Providers Care Principle Software Engineer Name Role Phone Jayshree Mishra MD Primary Care Provider [phone] Allergies Active Allergy Reactions Criticality Noted Date Comments Immune Globulin Other (see comments) 11/14/2002 puffiness Prednisone 10/23/2020 Medications acetaminophen (TYLENOL) 325 MG tablet Take 325 mg by mouth if needed 09/20/2019 Active ipratropium-albu terol (DUO-NEB) 0.5-2.5 mg/3 mL nebulizer solution Inhale 3 mL if needed 06/30/2019 Active Active Problems Problem Noted Date Diagnosed Date Hematuria, not otherwise specified 10/23/2020 Eshwsfl-Lseny-Acbfz disease 10/23/2020 Proteinuria 10/23/2020 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 Normal pap until 03/2018 when her pap returned abnormal and had a negative colposcopy Plan- repeat 03/2019-[facility]. Will refer to colpo-scheduled 05/04/19 with [facility] [place]-completed. Plan repeat pap smear per . Genital herpes simplex 08/26/201810/23 Overview (10/23/2020): 1st outbreak 2013. Most recent outbreak at week 4 of gestation. Suppression therapy at 33 weeks given likely earlier delivery Last Assessment & Plan: ?? Plan to start supression therapy IgA nephropathy 01/16/2014 10/24/2020 Tracheostomy status 08/11/2011 10/25/19 21 Overview (10/23/2020): Tracheostomy 4.0 adult Shiley, uncuffed Switched to [place]ivona 6.0 TTS 08/14/2019 in preparation for delivery Unable to tolerate due to increased secretions and plugging Switched back to original trach and carrying cuffed trach with her for delivery (in case she needs to be delivered in [place]) Page #[id number] at [facility] [place] to exchange trach *PLEASE DO NOT DELETE FROM OVERVIEW IN PROBLEM LIST (UNLESS PATIENT HAS BEEN DECANNULATED). MAKE EDITS/UPDATES NECESSARY WITH CHANGES IN TRACHEOSTOMY STATUS.* Tracheostomy Status: ?? Tracheostomy Tube Specifics: Primary Trach: Type: 4.0 adult shiley uncuffed ?? Back-Up/Emergency Trach: ?? 3.5 pedi shiley ?? Vented: No ?? Speaking Valve: Yes ?? If yes, number of holes: one ?? Capping: Yes, 3-5 hours per day ?? If yes, number of holes: No Airway Instructions: In case of emergency:Patient may be reintubated prior to ENT arrival, Patient is baggable from above and Patient is not baggable from above If intubation is necessary... Supply Check: Tracheostomy to-go bag present: No Suction present: No Relevant Information: Age: 27 y.o. Reason for tracheostomy placement: Bilateral vocal cord paralysis Date of tracheostomy placement: August 2006 [facility] [place] Company[place] [employer] Last Assessment & Plan: ?? [facility] [place] pulm switched her back to original trach without cuff due to swelling and discomfort ?? She is now carrying the cuffed trach in her bag wherever she goes so it can be changed out for delivery ?? Touched base with ob anesthesia regarding logistics of trach change and will update the care coordination note Immunizations Name Administration Dates Next Due Influenza TIV (IM) 03/03/2018 Influenza, Quadrivalent, Preservative Free 04/03 Influenza, Unspecified 03/22/2018,02/11/2012 Tdap 07/10/2019 Family History Relation Status Comments Cousin Other ESRD--Transplant Social History Tobacco Use Types Packs/Day Years Used Date Smoking Tobacco: Never Smokeless Tobacco: Never Alcohol Use Standard Drinks/Week Comments No 0 (1 standard drink = 0.6 oz pur e alcohol) Comments Unknown Sex and Gender Information Value Date Recorded Sex Assigned at Not on file Legal Sex Female 5:18 PM EST Gender Identity Not on file Sexual Orientation Not on file Last Filed Vital Signs Vital Sign Reading Time Taken Comments Blood Pressure 110/60 10/24/2020 9:54 AM EDT Pulse 80 10/24/2020 9:54 AM EDT Temperature - - Respiratory Rate - - Oxygen Saturation 99% 10/24/2020 9:54 AM EDT Inhaled Oxygen Concentration - - Weight 116 kg (255 lb) 10/24/2020 9:54 AM EDT Height 162.6 cm (5' 4 ) 10/24/2020 9:54 AM EDT Body Mass Index 43.77 10/24/2020 9:54 AM EDT Plan of Treatment Health Maintenance Due Date Last Done Comments Hepatitis B Vaccine (1 of 3 - 19+ 3-dose series) 07/18/2010 Influenza Vaccine (#1) 2024 9, 03/22/2018, 03/03/2018, Additional history exists Pneumococcal Vaccine: Pediatrics (0 to 5 Years) and At-Risk Patients (6 to 64 Years) Aged Out No longer eligible based on patient's age to complete this topic Insurance Care Teams Principle Software Engineer Relationship Specialty Start Date End Date Jayshree Mishra MD [address] [place] [address] PCP - General Internal Medicine 10/24/20
--- OUTSIDE RECORDS SUMMARY | 2024-06-14 12:01 | XMS_ITS ---
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 Forming Machine Helper Name Role Phone MICHELINE FARRIS Unavailable [phone] ALLERGIES Allergen (clinical drug ingredient) Drug/Non Drug [...] Problem Obesity (BMI 30-39.9) (E66.9) Active confirmed [id number] VITAL SIGNS Heart Rate 102 /min 04/05/2024 Blood pressure systolic 112 mm Hg 04/05/20 24 Blood pressure diastolic 70 mm Hg 024 Weight 231.0 lbs 04/05/2024 BMI 39.65 kg/m2 04/05/2024 Height 64 in 04/05/2024 Oximetry 92 % 04/05/2024 Encounters Encounter Location Date Provider Diagnosis [facility] [address] [place] [address] 04/05/2024 MICHELINE FARRIS Obesity (BMI 30-39.9 ) E66.9 ; BMI 39.0-39.9,adult Z68.39 ; Ewghouy-Avdtq-Nffzc disease G60.0 and 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 #Royohkk-Gjyzv-Wzepo disease: Follows with neurologist Dr. Bland. Occasions [...] Dictation was accomplished with the use of [employer] ([employer]) voice recognition software, prone to medical misidentifications [...] this. 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 #Vmsyjgw-Gcucr-Ukceq disease: Follows with neurologist Dr. Bland. Occasions [...] Dictation was accomplished with the use of [employer] ([employer]) voice recognition software, prone to medical misidentifications and grammatical errors. This is unintentional and the practitioner does try to identify and correct these, but some could still be present. Please do not hesitate to contact practitioner for clarification. 04/05/2024 Mjjfwkt-Qzhic-W ooth disease (ICD-10 - G60.0) Jessica Is a 33 year-old female who presents the office for weight management follow-up. 01/14/2023:Weight 252.7 pounds, BMI 43.37. Patient welcomed to the practice. Extensively educated on lifestyle modifications including high-protein foods, low carbohydrate snacks, healthy fats, sleep hygiene, stress reduction. Patient provided with educational documentation regarding all of this. 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 #Vzdgths-Ygkwd-Mqliu disease: Follows with neurologist Dr. Bland. Occasions [...] Dictation was accomplished with the use of [employer] ([employer]) voice recognition software, prone to medical misidentifications [...] this. 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 #Zefpfwu-Fcouu-Vxrhk disease: Follows with neurologist Dr. Bland. Occasions [...] Dictation was accomplished with the use of [employer] ([employer]) voice recognition software, prone to medical misidentifications [...] Next Appt Details Provider Name:MICHELINE FARRIS, Brittney 06/28/2024 10:15:00 AM, [address], [place], [address], Progress Notes * Jessica DUBOSEDOB:1990 (33 yo F)Acc No.[id number]:04/05/2024 Patient:??Jessica DUBOSE Provider:??MICHELINE FARRIS PA-C :1990?Age:33 Y?Sex:Fe male Date:04/05/2024 Address:[address] [place], [place] [id number] Subjective: * Chief Complaints: * ?1. Patient [...] and lower extremities 5/5 strength with flexion/extension. Head Of Merchandise Buying strength 5/5. Sensation intact. ?Neuro: CN II-XI grossly intact. Steady gait with ambulation observed. Symmetric reflexes. ?Psych: Stable mood and affect. 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 Jessica Is a 33 year-old fe male who presents the office for weight management follow-up. 01/14/2023:Weight 252.7 pounds, BMI 43.37. Patient welcomed to the practice. Extensively educated on lifestyle modifications including high-protein foods, low carbohydrate snacks, healthy fats, sleep hygiene, stress reduction. Patient provided with educational documentation regarding all of this. 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 #Xwrlhsv-Fjkpx-Yaxls disease: Follows with neurologist Dr. Bland. Occasions [...] Dictation was accomplished with the use of [employer] ([employer]) voice recognition software, prone to medical misidentifications and grammatical errors. This is unintentional and the practitioner does try to identify and correct these, but some could still be present. Please do not hesitate to contact practitioner for clarification. Plan: * Treatment: * Procedure Codes:??10943 P/M CLAY ARTISAN, INDIV 15 MIN * Images: Billing Information: * Visit Code:?? 34467 Office Visit, Est Pt., Level 3. * Procedure Codes:?? 99203 P/M CLAY ARTISAN, INDIV 15 MIN. * Sign off status: [...] and lower extremities 5/5 strength with flexion/extension. Head Of Merchandise Buying strength 5/5. Sensation intact. Neuro: CN II-XI grossly intact. Steady gait with ambulation observed. Symmetric reflexes. Psych: Stable mood and affect
--- OUTSIDE RECORDS SUMMARY | 2024-06-14 12:01 | XMS_ITS | Continuity of Care Document ---
Author Organization [facility] [place] [facility] Address [address] [place] [address]- Care Team Providers Care Drying Room Attendant Name Role Phone Jayshree Mishra MD Primary Care Physician Encounter [facility] Date(s): 06/06/24 - 06/13/24 [facility] [address] [place] [address]- Attending Physician: Enrrique Haney MD Referring Physician: Jayshree Mishra MD Encounter Type: Office Visit Allergies, Adverse Reactions, Alerts Substance Criticality Severity [...] Note: vis=12/19/2013 2Admin Note: given at [facility] 3Admin Note: vis given 4Admin [...] Quantity: 1.0 Unit: kit Repeat number: 1 cyclobenzaprine 5 mg oral tablet 1 tablet = 5 mg, By Mouth, 3 times a day, for 14 days, # 42 tablet, 0 Refills, Acute 06/20/24 10:39:00 AM EST, 06/06/24 10:39:00 AM EST, Tablet, [facility]/pharmacy #[id number], Partial fill upon patient request if the prescription is for a schedule II opioid drug., 163, cm, 06/06/24 10:08:00 EST, Height, 105, kg,11/05/23 11:17:00 EDT, Dry Weight Start Date: 06/06/24 Stop Date: 06/20/24 Status: Ordered Quantity: 42.0 Unit: tablet Repeat number: 1 ketoconazole 2% topical cream [...] Quantity: 15.0 Unit: g Repeat number: 1 meloxicam 7.5 mg oral tablet 1 tablet = 7.5 mg, By Mouth, Daily, # 14 tablet, 0 Refills, Maintenance, 06/06/24 10:47:00 AM EST, [facility] #[id number], Partial fill upon patient request if the prescription is for a schedule II opioid drug., 163, cm, 06/06/24 10:08:00 EST, Height, 105, kg, 11/05/23 11:17:00 EDT, Dry Weight Start Date: 06/06/24 Stop Date: 06/20/24 Status: Ordered Quantity: 14.0 Unit: tablet Repeat number: 1 Valtrex 1 gm oral [...] Active 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, f/u normal, followed by [facility] Confirmed Active Respiratory failure, chronic - [facility] admit 06/2019, diaphram dysfunction/ , 2L O2 Confirmed Active Bilateral foot-drop Confirmed Active Misjafp-Liwaq-Gwveo syndrome Confirmed Active Herpes simplex Confirmed Active IgA nephropathy Confirmed Active Obesity Confirmed Active Obstructive sleep apnea syndrome Confirmed Active Overactive bladder Confirmed Active *[facility]/Animal Rehabilitator-Kalyani [phone] /Health correction, active care coordination Confirmed Active PCOS (polycystic ovarian syndrome) Confirmed Active Posttraumatic Stress Disorder Confirmed 07/31/10 Active Pre-diabetes Confirmed Active Severe obesity (BMI 35.0-39.9) with comorbidity Confirmed Active Tracheostomy Confirmed Active Vocal cord paralysis - CPAP for sleep Confirmed Active Vital Signs Most recent to oldest [Reference Range]: 1 Height 163 cm (06/06/24 10:08 AM) Weight 102 kg (06/06/24 10:08 AM) Oxygen Saturation [94-100 %] 97 % (06/06/24 10:08 AM) Pulse Rate [55-90 bpm] 79 bpm (06/06/24 10:08 AM) Body Mass Index [18.5-24.99 kg/m2] 38.39 kg/m2 *>HHI* (06/06/24 10:08 AM) Blood Pressure [90-138/55-84 mm Hg] 113/ 63mm Hg (06/06/24 10:08 AM) Respiratory Rate [16-30 br/min] 20 br/mi n (06/06/24 10:08 AM) Mode of Delivery (Oxygen) Room air (06/06/24 10:08 AM) Blood pressure sites Arm, right (06/06/24 10:08 AM) Weight Obtained Via Bed scale (06/06/24 10:08 AM) Social History Social History Type Response Smoking Status Never smoker; Type: Cigarettes entered on: 07/31/14 Sex Sex Representation Female (finding) Note * Lina Montelongo: PERFORM Event Display: Patient Education/Instruction Authored Date: Ambulatory Adult Visit Summary [facility] [address] [place], [place] [id number] Name: SYDNEE DUBOSE : 1990?? Visit: 06/06/2024 09:58?? Ambulatory Visit Instructions ?? Your Care Team Primary Care Provider Jayshree Mishra MD? This Visit Provider Enrrique Haney MD Your Diagnosis Adhesive capsulitis of right shoulder Cervical myofascial pain syndrome Vitals Signs Pulse Rate: 79 bpm Height: 163 cm Respiratory Rate: 20 br/min Weight: 102 kg Systolic Blood Pressure: 113 mm Hg Body Mass Index:??38.39 kg/m2??Critical Diastolic Blood Pressure: 63 mm Hg Body surface area: 2.15 Oxygen Saturation: 97 % ?? Medications The list below reflects the information in our records and provided by you today along with any changes made during this visit. Please continue your medications until treatment is completed or stopped by your provider. If this is different from the information you have or there are other questions,please contact the prescribing provider. What How Much When Instructions New Cyclobenzaprine (cyclobenzaprine 5 mg oral tablet) 1 tab(s) Oral 3 times a day Duration: 14 Days Pickup at [facility]/pharmacy #[id number] New Meloxicam (meloxicam 7.5 mg oral tablet) 1 tab(s) Oral Daily Duration: 14 Days Pickup at [facility]/pharmacy #[id number] Unchanged Durable Medical Equipment (Adult Incontinence Liners) See instructions Use Up To 6/ Day Use As Indicated Dx: ??Charcot-Shantell Tooth Syndrome (G60); Obesity (E66.9); Urge Incontinence (N39.41) Duration: ??Lifetime ?? Unchanged Durable Medical Equipment (Arm sling) See instructions Dx: Right Rotator Cuff Syndrome, severe pain. ?? Unchanged Durable Medical Equipment (Bilateral Carbon Fiber AFOs) See instructions Dx: CMT/ bilat foot drop. ?? Unchanged Ketoconazole (ketoconazole 2% topical cream) 1 fito Topically Daily Duration: 7 Days Unchanged ValACYclovir (Valtrex 1 gm oral tablet) 1 tab(s) Oral Daily Pharmacy Information [facility]/pharmacy #[id number]: [address], [place] [phone] Medications and Immunizations Administered Medications Given During Visit No medications given during this visit.?? Allergies (NKA means No Known Allergies) prednisone??(severe behavior reaction) Common Emergency Awareness Tips IS IT A STROKE? Act FAST and Check for these signs: FACE Does the face look uneven? ARM Does one arm drift down? SPEECH Does their speech sound strange? TIME Call at any sign of stroke ?? Heart Attack Signs Chest discomfort: Most heart attacks involve discomfort in the center of the chest and lasts more than a few minutes, or goes away and comes back. It can feel like uncomfortable pressure, squeezing, fullness or pain. Discomfort in upper body: Symptoms can include pain or discomfort in one or both arms, back, neck, jaw or stomach. Shortness of breath: With or without discomfort. Other signs: Breaking out in a cold sweat, nausea, or lightheaded. Remember, MINUTES DO MATTER. If you experience any of these heart attack warning signs, call to get immediate medical attention! ?? Smoking can increase your chances of developing chronic health problems and can cause harmful effects to other family members in your house. If you smoke, you are strongly encouraged to quit. Please call [facility] [employer] Link at [phone] or [phone] ([phone]) or log in to [email or web address] for referrals to smoking cessation programs. ?? The National Suicide Prevention Hotline is available 23/11 if you or someone you know needs to find a reason to keep living. By calling 7-596-683-DigitalScirocco (8008) you'll be connected to a skilled, trained counselor at a crisis center in your area. [facility] [employer] Portal You can view and manage your care through the patient portal or by using a health care fito of your choosing. [employer] is a website that allows you to securely view your medical information including your hospital discharge summary, office visit summaries, medications and follow-up visits. You can also request appointments, renew medications, and request access to your medical information using a health care fito of your choosing, or just ask a question. You can enroll at [email or web address] or register during your next office visit. [facility], in keeping with [facility] guidance, no longer requires face masks for staff, patientsor visitors in most situations. Similiar to time spent indoors at other locations, there is the chance that you were exposed to repiratory viruses during your time with us (such as flu or COVID-19). If you develop symptoms concerning for a viral respiratory infection, please seek testing (and treatment if indicated) from your medical provider or home test kit. ?? Disclaimer: The information provided is of a general nature and is intended to be used in conjunction with the recommendations and advice of your health care practitioner. Every effort has been made to ensure that the information provided is accurate and complete at the time it is provided to you however, as your needs change, or, as new information becomes available, different or additional instructions may be required. ?? If you have questions, please consult with your primary care provider or pharmacist, as appropriate. This information is not intended to serve as substitution for assessment and evaluation by a qualified health care provider. If you do not have a primary care provider, you may find a [facility] provider by calling [facility] [employer] [facility] at [phone]. Patient Care team information Care Team Personnel Name: Elian Todd MD Position: [facility] Renal MD Member Role: Lifetime Consulting Physician Address: [address] [facility] [place] [address]- [place] [employer]: Name: Shakira Padron NP Position: [facility] PCO Associate Professional Member Role: Primary Care Nurse Address: [place] [address]- [place] [employer]: Name: Jayshree Mishra MD Position: [facility] Physician - Primary Care Member Role: PCP Address: [address] [facility] [place] [address]- [place] [employer]: Care Team Related Persons Name: ESTHER SALDIVAR Name: ESTHER SALDIVAR Name: SABRINA EDMONDSON Insurance Providers Guarantor name: SYDNEE DUBOSE Health Plan Information #: 1 Payer: [employer] Member Number: [id number] Policy Number: NA Group Number: [facility] Health Plan Information #: 2 Payer: [employer] [facility] [employer] Member Number: [id number] Policy Number: NA Group Number: NA
--- OUTSIDE RECORDS SUMMARY | 2024-06-14 12:01 | XMS_ITS | Patient Health Record ---
Author Organization [facility] Address [address] [place] [address] Care Team Providers Care Coke Production Heater Name Role Phone MICHELINE FARRIS Unavailable [phone] CAROL MARQUEZ Unavailable [phone] ALLERGIES Allergen (clinical drug ingredient) Drug/Non Drug Allergy documented on EMR Reaction Allergy Type Onset Date Status prednisone Prednisone Unknown Drug Allergy Activ e REASON FOR REFERRAL No Information MEDICATIONS Medication [...] Notes Problem Other obesity (E66.8) Active confirmed 961947031 Problem BMI 40.0-44.9, adult (Z68.41) Active confirmed 161978359 Problem Obesity (BMI 30-39.9) (E66.9) Active confirmed 367085102 Problem PCOS (polycystic ovarian syndrome) (E28.2) Active confirmed Problem BMI 39.0-39.9,adult (Z68.39) Active confirmed 502177312 Problem BMI 38.0-38.9,adult (Z68.38) Active confirmed 660208675 Problem Ftagwwb-Txenw-Zx 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) Active confirmed 310321584 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 [address] [place] [address] 08/19/[address] [facility] [address] [place] [address] 08/31/[address] [facility] [address] [place] [address] 06/28/2023 MICHELINE KALEIGH Other obesity E66.8 ; BMI 39.0-39.9,adult Z68.39 ; Tejjsvf-Icaac-Plhgd disease G60.0 and Tracheostomy dependent Z93.0 [facility] [address] [place] [address] 07/20/2023 MICHELINE KALEIGH Other obesity E66.8 ; BMI 38.0-38.9,adult Z68.38 ; Badkajl-Mkrsn-Lgmoa disease G60.0 and Tracheostomy dependent Z93.0 [facility] [address] [place] [address] 07/21/[address] [facility] [address] [place] [address] 01/06/2024 CAROL BIRKS Other obesity E66.8 ; BMI 38.0-38.9,adult Z68.38 ; Qdhjzup-Igsnz-Sjpfk disease G60.0 ; Tracheostomy dependent Z93.0 and BMI 40.0-44.9, adult Z68.41 [facility] [address] [place] [address] 04/05/2024 MICHELINE KALEIGH Obesity (BMI 30-39.9 ) E66.9 ; BMI 39.0-39.9,adult Z68.39 ; Yzwauev-Lwtbd-Hfnwy disease G60.0 and Tracheostomy dependent Z93.0 [facility] [address] [place] [address] 05/16/2024 MICHELINE KALEIGH Obesity (BMI 30-39.9 ) E66.9 ; BMI 38.0-38.9,adult Z68.38 ; Hgrysvt-Zirar-Vidoa disease G60.0 and Tracheostomy dependent Z93.0 [facility] [address] [facility] [address] [place] [address] 01/06/2024 MICHELINE KALEIGH Other obesity E66.8 [address] [facility] [address] [place] [address] 03/06/2024 MICHELINE KALEIGH Other obesity E66.8 ASSESSMENTS Encounter Date Diagnosis Assessment Notes Treatment Notes Treatment Clinical Notes Section Notes 06/28/2023 Other obesity (ICD-10 - E66.8) Jessica Is a 31-year-old female who presents the office for weight management follow-up. 01/14/2023:Weight 252.7 pounds, BMI 43.37. Patient welcomed to the practice. Extensively educated on lifestyle modifications including high-protein foods, low carbohydrate snacks, healthy fats, sleep hygiene, stress reduction. Patient provided with educational documentation regarding all of this. 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 #Ypwtfma-Wkixx-Uapmt disease: Follows with neurologist Dr. Bland. Occasions [...] Dictation was accomplished with the use of Attention Point voice recognition software, prone to medical misidentifications [...] this. 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 #Nzbbqjj-Jmeyy-Sgcyh disease: Follows with neurologist Dr. Bland. Occasions [...] Dictation was accomplished with the use of Att[employer] voice recognition software, prone to medical misidentifications [...] this. 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 Continue diet and exercise habits. #Oydwrih-Nwjxm-Nprhb disease: Follows with neurologist Dr. Bland. Occasions [...] Dictation was accomplished with the use of Att[employer] Point voice recognition software, prone to medical misidentifications [...] this. 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 Continue diet and exercise habits. #Mehsumj-Gnogs-Vfbjh disease: Follows with neurologist Dr. Bland. Occasions [...] Dictation was accomplished with the use of Att[employer] Point voice recognition software, prone to medical misidentifications [...] this. 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 Will follow-up in 4-6 weeks. #Zmcbgnv-Xtgks-Hthqf disease: Follows with neurologist Dr. Bland. Occasions [...] Dictation was accomplished with the use of Att[employer] Point voice recognition software, prone to medical misidentifications [...] this. 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 Will follow-up in 4-6 weeks. #Cwtqqil-Uovfy-Ziunp disease: Follows with neurologist Dr. Bland. Occasions [...] Dictation was accomplished with the use of Attention Point voice recognition software, prone to medical misidentifications [...] this. 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 #Aaczhaf-Ylndb-Czoao disease: Follows with neurologist Dr. Bland. Occasions [...] Dictation was accomplished with the use of Att[employer] Point voice recognition software, prone to medical misidentifications [...] this. 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 #Doplgbk-Ilnmt-Mybly disease: Follows with neurologist Dr. Bland. Occasions [...] Dictation was accomplished with the use of Attention Point voice recognition software, prone to medical misidentifications and grammatical errors. This is unintentional and the practitioner does try to identify and correct these, but some could still be present. Please do not hesitate to contact practitioner for clarification. 05/16/2024 Obesity (BMI 30-39.9) (ICD-10 - E66.9) Jessica Is a 33 year-old female who presents the office for weight management follow-up. 01/14/2023:Weight 252.7 pounds, BMI 43.37. Patient welcomed to the practice. Extensively educated on lifestyle modifications including high-protein foods, low carbohydrate snacks, healthy fats, sleep hygiene, stress reduction. Patient provided with educational documentation regarding all of this. 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 #Gylqdlr-Fgbna-Ezyzs disease: Follows with neurologist Dr. Bland. Occasions [...] Dictation was accomplished with the use of Att[employer] Point voice recognition software, prone to medical misidentifications [...] this. 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 #Nqdhdqi-Lgxvt-Ciapy disease: Follows with neurologist Dr. Bland. Occasions [...] Dictation was accomplished with the use of Attention Point voice recognition software, prone to medical misidentifications and grammatical errors. This is unintentional and the practitioner does try to identify and correct these, but some could still be present. Please do not hesitate to contact practitioner for clarification. 05/16/2024 Zlsiiyz-Ihkvk-F ooth disease (ICD-10 - G60.0) Jessica Is a 33 year-old female who presents the office for weight management follow-up. 01/14/2023:Weight 252.7 pounds, BMI 43.37. Patient welcomed to the practice. Extensively educated on lifestyle modifications including high-protein foods, low carbohydrate snacks, healthy fats, sleep hygiene, stress reduction. Patient provided with educational documentation regarding all of this. 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 #Gqebwzc-Eqfsi-Tqjqr disease: Follows with neurologist Dr. Bland. Occasions [...] Dictation was accomplished with the use of Attention Point voice recognition software, prone to medical misidentifications and grammatical errors. This is unintentional and the practitioner does try to identify and correct these, but some could still be present. Please do not hesitate to contact practitioner for clarification. 04/05/2024 Kvvowyy-Vwbyf-G ooth disease (ICD-10 - G60.0) Jessica Is a 33 year-old female who presents the office for weight management follow-up. 01/14/2023:Weight 252.7 pounds, BMI 43.37. Patient welcomed to the practice. Extensively educated on lifestyle modifications including high-protein foods, low carbohydrate snacks, healthy fats, sleep hygiene, stress reduction. Patient provided with educational documentation regarding all of this. 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 #Hinwrxz-Wmeya-Enlyq disease: Follows with neurologist Dr. Bland. Occasions [...] Dictation was accomplished with the use of Attention Point voice recognition software, prone to medical misidentifications and grammatical errors. This is unintentional and the practitioner does try to identify and correct these, but some could still be present. Please do not hesitate to contact practitioner for clarification. 01/06/2024 Kzifpwh-Yzkip-W ooth disease (ICD-10 - G60.0) Jessica Is a 33 year-old female who presents the office for weight management follow-up. 01/14/2023:Weight 252.7 pounds, BMI 43.37. Patient welcomed to the practice. Extensively educated on lifestyle modifications including high-protein foods, low carbohydrate snacks, healthy fats, sleep hygiene, stress reduction. Patient provided with educational documentation regarding all of this. 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 Will follow-up in 4-6 weeks. #Ekqoyqp-Wkpxr-Hrejt disease: Follows with neurologist Dr. Bland. Occasions [...] Dictation was accomplished with the use of Attention Point voice recognition software, prone to medical misidentifications and grammatical errors. This is unintentional and the practitioner does try to identify and correct these, but some could still be present. Please do not hesitate to contact practitioner for clarification. 07/20/2023 Alwdimc-Cukkx-W ooth disease (ICD-10 - G60.0) Jessica Is a 33 year-old female who presents the office for weight management follow-up. 01/14/2023:Weight 252.7 pounds, BMI 43.37. Patient welcomed to the practice. Extensively educated on lifestyle modifications including high-protein foods, low carbohydrate snacks, healthy fats, sleep hygiene, stress reduction. Patient provided with educational documentation regarding all of this. 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 Continue diet and exercise habits. #Cvdqybd-Grrfr-Fpwcv disease: Follows with neurologist Dr. Bland. Occasions [...] Dictation was accomplished with the use of Attention Point voice recognition software, prone to medical misidentifications and grammatical errors. This is unintentional and the practitioner does try to identify and correct these, but some could still be present. Please do not hesitate to contact practitioner for clarification. 06/28/2023 Mkeiolr-Crdzm-Q ooth disease (ICD-10 - G60.0) Jessica Is a 31-year-old female who presents the office for weight management follow-up. 01/14/2023:Weight 252.7 pounds, BMI 43.37. Patient welcomed to the practice. Extensively educated on lifestyle modifications including high-protein foods, low carbohydrate snacks, healthy fats, sleep hygiene, stress reduction. Patient provided with educational documentation regarding all of this. 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 #Ddroqbq-Maexb-Alqzj disease: Follows with neurologist Dr. Bland. Occasions [...] Dictation was accomplished with the use of Attention Point voice recognition software, prone to medical misidentifications [...] this. 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 #Uoyqdke-Ebqbb-Yxjqy disease: Follows with neurologist Dr. Bland. Occasions [...] Dictation was accomplished with the use of Attention Point voice recognition software, prone to medical misidentifications [...] this. 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 Continue diet and exercise habits. #Tiuuxbf-Baajj-Sixbv disease: Follows with neurologist Dr. Bland. Occasions [...] Dictation was accomplished with the use of Attention Point voice recognition software, prone to medical misidentifications [...] this. 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 Will follow-up in 4-6 weeks. #Oxcdgxs-Aiiev-Btswo disease: Follows with neurologist Dr. Bland. Occasions [...] Dictation was accomplished with the use of Attention Point voice recognition software, prone to medical misidentifications [...] this. 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 #Kbuedei-Xaebf-Jxvuy disease: Follows with neurologist Dr. Bland. Occasions [...] Dictation was accomplished with the use of Attention Point voice recognition software, prone to medical misidentifications [...] this. 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 #Qdjrnhp-Dqljl-Zgijb disease: Follows with neurologist Dr. Bland. Occasions [...] Dictation was accomplished with the use of Attention Point voice recognition software, prone to medical misidentifications [...] this. 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 Will follow-up in 4-6 weeks. #Rznugoi-Fzfdg-Hngfz disease: Follows with neurologist Dr. Bland. Occasions [...] Dictation was accomplished with the use of Attention Point voice recognition software, prone to medical misidentifications and grammatical errors. This is unintentional and the practitioner does try to identify and correct these, but some could still be present. Please do not hesitate to contact practitioner for clarification. PLAN OF TREATMENT Pending Test Test Name Order Date EKG 06/02/2023 Next Appt Details Provider Name:Brittney LAWRENCE 06/28/2024 10:15:00 AM, [address] [facility], [place], [address], Insurance Providers Payer Name Payer Address Payer Phone Subscriber Number Group Number Insured Name Patient Relationship to Insured Coverage Start Date Coverage End Date [employer] or Options [address] [place] [id number] Jessica Salvador Self - patient is the insured 2 MEDICATIONS ADMINISTERED Medication Instructions Date of Administration Dosage Notes Semaglutide 02/11/2023 0.25 sema 0.25mg Semaglutide 02/17/2023 0.25 mg LOT # [id number] 0.25MG Semaglutide 02/23/2023 0.25 mg lot# [id number] Semaglutide 03/02/2023 lot#[id number] 0.25mg Semaglutide 03/11/2023 0.25 mg LLQ SQ [...] old (vocal cords, muscles) IgA nephropathy PCOS (polycystic ovarian syndrome) E28.2 Surgical History Surgery Date(Month/Year) tracheotomy 2006 c section Hospitalization History Reason Date(Month/Year) tracheotomy c section
[2024-06-14 12:23] LABS: Basophils Percent Auto 0.6 % (0-2); Eosinophils Percent Auto 0.2 % (0-4); Hematocrit 35.7 % (37.0-47.0); Hemoglobin 11.3 g/dl (12.0-16.0); Imm Gran Abs Auto 0.01 X10*3/uL (0.00-0.03); Imm Gran Pct Auto 0.2 % (0.0-0.4); Lymphocytes Absolute Auto 1.7 X10*3/uL (1.2-4.9); Lymphocytes Percent Auto 36.8 % (20-40); Mean Corpuscular HGB Conc 31.7 g/dl (31.0-35.0); Mean Corpuscular Volume 85.2 fL (80.0-98.0); Mean Platelet Volume 10.3 fL (9.4-12.3); Monocytes Absolute Auto 0.4 X10*3/uL (0.1-1.2); Monocytes Percent Auto 7.8 % (2-11); Neutrophils Absolute Auto 2.6 x10*3/uL (2.0-8.3); Neutrophils Percent Auto 54.4 % (45-73); Platelet Count 170 X10*3/uL (160-400); Red Blood Count 4.19 X10*6/uL (4.20-5.50); Red Cell Distribution Width 14.6 % (11.0-16.0); White Blood Count 4.7 X10*3/uL (4.8-10.8)
[2024-06-14 12:50] LABS: Alanine Aminotransferase 13 U/L (0-31); Alkaline Phosphatase 47 U/L (39-117); Anion Gap 9 (12-20); Aspartate Amino Transferase 27 U/L (5-31); Bilirubin Direct 0.1 mg/dL (0.0-0.5); Bilirubin Total 0.5 mg/dL (0.0-1.0); Blood Urea Nitrogen 11 mg/dL (9-16); Calcium 8.8 mg/dL (8.4-10.2); Carbon Dioxide 25 mmol/L (22-29); Chloride 109 mmol/L (96-108); Estimated Glomerular Filt Rate > 60; Glucose Random 85 mg/dL (60-115); Potassium 4.1 mmol/L (3.3-5.1); Sodium 139 mmol/L (135-145); Total Protein 7.6 g/dL (6.5-8.0)
[2024-06-14 12:57] LABS: D Dimer High Sensitivity < 150 NG/ML
[2024-06-14 13:17] LABS: Erythrocyte Sedimentation Rate 36 MM/HR (0-20)
== END 2024-06-14 10:10 | disposition home or self-care (01) ==
LOC: HO.XRAY 10:09
PROVIDERS: PCP Internal Medicine; Visit Provider Hospitalist
DX: R04.2 Hemoptysis (principal)
CPT/HCPCS: 36415; 71046; 80048; 80076; 85025; 85379; 85652; 99212

== ENCOUNTER → 2024-06-14 10:16 | Outpatient (BNV) | payer OTHER, SELFPAY | PROVIDERS: PCP Internal Medicine; Visit Provider Radiology Diagnostic Radiology | DX: R04.2 Hemoptysis (principal) | CPT/HCPCS: 71046 ==

== ENCOUNTER 2024-06-14 10:47 | Outpatient (AMB) | payer OTHER, SELFPAY ==
[2024-06-14 10:59] VITALS: BP 110/72; PULSE 72; O2SAT 99; BMI 39.0
--- NOTE | 2024-06-14 10:59 | MHC.OFFVIS ---
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 The patient has been noticing since 3 days ago that she is having some chest discomfort. 8/10 in severity. Asthma getting worse. Associated with shortness of breath. Also noticed that she was coughing out some blood. She denies any sick lately like symptoms. Denies any fevers or chills. She came today for an appointment. We did change how her tracheostomy since she could not put the inner cannula back in. However her heart rate went up to 130 and her pulse ox 95%. She is 10 weeks gestation. She needs to be evaluated in the ER this time. We did review her results from when she went to the ER. She did have an elevated white count but otherwise her labs were okay. Her x-ray and her V/Q scan and lower extremity Dopplers were all reasonable. She did follow-up with Ob and had ultrasound baby that seem to be perfect. In the meantime she has been concerned about the albuterol because of the elevated heart rates in the palpitations. Now that she is with to be extremely careful. Therefore in the office we did provide her with Xopenex 1.25 mg which she tolerated significantly better. Therefore, I will send her Xopenex to the pharmacy. She failed albuterol due to the tachyarrhythmias and palpitations especially now . She has felt some palpitations getting worse as well. We did go for brief walking oximetry on room air she became short of breath and her heart rate went up to 130 and pulse ox decreased to 87 %. She was placed on 2 L nasal cannula. Her pulse ox was 98% with activity she felt a lot better on the oxygen. She needs to continue using the oxygen with activity and sleep. She will be following up with OBGYN at [facility] [phone]. She recently was admitted to [facility] for inpatient evaluation for significant hypoxia. Which she was there she had an aspiration event and became low more hypoxic. She was evaluated from a cardiac status in a pulmonary status and all the workup came back relatively negative except for diaphragmatic dysfunction likely worsened by her . The possibility of pulmonary hypertension is a reasonable thought. And because of her increased weight gain and daytime drowsiness with an elevated [place] score she will benefit from getting a sleep study. However with a tracheostomy in the tachycardia I do believe a diagnostic sleep study will be best. 11/04/2021 the patient is here for a pulmonary follow-up visit. Overall she is doing well. She denies any respiratory complaints. She is tolerating her tracheostomy well. She did mention that at home she does not use the inner cannula. When she did change her tracheostomy at the bedside I did a sister the inner part of the tracheostomy was cover with debris. Explained to her that by allowing debride to build up inside the tracheostomy it would only cause a potential obstruction if she tries to push in the inner cannula. Therefore I did ask her to keep the inner cannula and at all times. She does not seem to use her humidity all the time so therefore the mucus can get dry impacted within the trachea itself. The patient came in because she wants to be able to change her tracheostomy herself. I did assist her, but she was able to change her tracheostomy without complications. She will not be doing tracheostomy changes by herself. She does have a backup smaller trach in case she runs into difficulties. 03/09/2022 the patient is here for a pulmonary follow-up visit. Since we last spoke the patient has been doing well from a respiratory status. She has been changing her tracheostomy every month without any difficulties. denies any tenderness over the stoma site and also denies any significant secretions. She has not had any recent infections. She have an appointment soon with her ENT doctor. She continues to have her nebulized therapy. She does need a rescue inhaler for her to carry. I will provide her Combivent to the pharmacy. In addition to that she will get a flu shot. 11/11/2022 the patient is here for sick visit. She was exposed to a sick contact. Her daughter was sick with a cold last week. Now she started developing worsening cough. When she starts coughing she loses her breath. She has a hard time breathing. Last night she woke up out of a sound sleep with significant shortness of breath. She has been using her nebulizer. She denies any fevers or chills. Her cough for the most part is dry although at times she does bring up some mucus. When she does bring up the mucus is typically greenish or grayish in color. She has had history of Pseudomonas. No significant hypoxia at this time. Her respiratory exam is relatively normal. Her symptoms appear to be more consistent with croup. Likely the tracheitis has resulted in more difficulty breathing through the trach. She is keeping the trach open for better airway passage. Will go ahead and placed on Decadron for taper in addition to that the coin 4 history of Pseudomonas. She can also try the benzo nights to see if this provides her with some relief. If her symptoms worsen she will need to call for it in the evaluation of go to the ER. 02/12/2023 the patient is here for a pulmonary follow-up visit. Overall the patient has been doing well. Her new tracheostomy appears to be working well. Although she is been having some difficulties getting supplies the [employer]. They did give her a call and let her know that everything should be all set now. If she runs into any difficulty she will call back and we can sort out with the [employer] company. She has not had any recent infections. The last time she was treated was back over the summer. Secretions are stable. She is tolerating her PMV. The patient is back to going for OT and PT therapy. She is noticed a slight worsening of her upper extremity motor function. She continues use the oxygen at nighttime with good effect. The oxygen therapy has been affecting beneficial. 05/04/2023 the patient is here for sick visit. She has been sick now for more than a week. She started developing some chest tightness and cough. The cough is moderate to severe. She has a hard time sleeping. She has been suctioning some clear thick sticky phlegm. Denies any hemoptysis or colored sputum. She also has some heaviness in the chest and some chest pain. Positive sick contacts. She did test negative for the COVID. Since she has been more than wakes sick I will not swab her for any other organisms. She did have a chest x-ray which I personally reviewed. It appears that she does have patchy opacities on the right hemithorax. This is suggestive of pneumonia. Therefore go ahead and treat her with some antibiotics and also course of Decadron. She is allergic to penicillin. If the patient is no better she will call the office for an earlier assessment. 08/06/2023 the patient is here for pulmonary follow-up visit. The patient overall has been better. Her tracheostomy is in good placement. She misplaced her Passy Aaliyah valve so she is using a transplant registered nurse. A direct capsule hard for her to breathe. I did have a PMV available and I did provide her 1. She also should be able to get some from her [employer]. The trach changes have been happening without any difficulties. The patient did follow-up with Neurology and will benefit from physical therapy. In addition to that she is using the oxygen for sleep. He was seen therapy has been affecting beneficial. The patient does not have any further complaints at this time. 04/20/2024 the patient is here for a pulmonary follow-up visit. Fortunately she had been sick for the last 4 days. She started with a sore throat and not developing worsening cough shortness of breath chest tightness. Moderate severity. She was started on going to the ER. Denies any fevers or chills. She did not get tested for COVID. We did do a swab in the office but was negative for RSV flu and also COVID. She did have some evidence of stridor in the office. She does have vocal cord paralysis. She does have a trach in per the most part keeping the valve off to able to breathe better. The patient did receive treatment with Xopenex x2. Also had to receive Solu-Medrol. She is going to start antibiotics and Decadron home. If the patient does not improve she will call for an earlier assessment of go to the ER. 06/14/2024 the patient is here for a sick visit. Her daughter had influenza a and B and she also developed a URI viral syndrome. Subsequently after that she started developing cough and shortness of breath. Then she started developing some hemoptysis. She did bring some pictures with bright red blood but lately he has been getting a little bit mixed with sputum and some clots. She had an x-ray which I personally reviewed. Slight haziness over the right base suggesting a bronchopneumonia. She also has evidence of bronchitis. Likely a component of tracheitis. Will go ahead and start her on Augmentin oxygen doxycycline to cover her for community-acquired pneumonia postviral. And at this time the patient will also get blood work. She did have a D-dimer that was negative so therefore we have to worry about blood clots. She does take estrogen hormonal replacement therapy for control. I advised her to come off it. The patient will continue the antibiotics. If she is no better she will call. If the bleeding gets worse we may have to do a bronchoscopy just to clear all the clots and to assess the area of bleeding. The CT scan of the chest may be also warranted but will see how she responds to the antibiotics. [facility] Medical History (Updated 06/13/24 @ 15:27 by Rashaun Irwin MD) Hemoptysis Bronchopneumonia Dysphagia GERD (gastroesophageal reflux disease) Hypoxia Tachycardia Chronic respiratory failure Chest pain Pneumonia delivery due to maternal disorder, delivered, curr hospitaliz 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 Social History Household Members: Spouse and Children Housing: House Do you presently have visiting nurse or other home services: No Alcohol intake: never Patient Tobacco Use Status: Never used Tobacco service: No Current occupational status: disabled Current occupation: right hand dominant Review of Systems Const Reports difficulty sleeping, Reports fatigue, Denies night sweats, Reports weakness and Reports weight loss ENT Denies change in voice, Denies lip swelling, Denies mouth pain, Denies nasal congestion, Denies nasal discharge and Denies tongue swelling Card Denies chest pain, Reports dyspnea and Reports dyspnea on exertion Resp Reports change in phlegm color, Reports chest congestion, Reports cough, Reports hemoptysis, Denies pain on inspiration, Denies pain with cough, Reports dyspnea and Reports dyspnea on exertion GI Denies abdominal pain Musc Reports as per HPI Neuro Reports as per HPI, Denies Neuro-related abnormal movements and Reports weakness Psych Denies no additional complaints Endo Reports fatigue Ryan/Lymph Denies easy bleeding and Denies lymphadenopathy Aller/Immun Denies lip swelling and Denies tongue swelling Physical Exam Vital Signs: Last Vital Signs Pulse 72 06/14/24 10:59 BP 110/72 06/14/24 10:59 Pulse Ox 99 06/14/24 10:59 Oxygen Delivery Method Room Air 06/14/24 10:59 BMI result Body Mass Index 39.0 Const General: alert and tired appearing HEENT Head: Yes normocephalic Neck Neck: Yes normal visual inspection, Yes full ROM, Yes no lymphadenopathy and Yes tracheostomy present Chest Chest palpation & inspection: normal inspection of the chest Resp Effort & Inspection: stridor Auscultation: no rhonchi, wheezes and diminished lung sounds Cardio Rate: regular rate Rhythm: regular rhythm Heart sounds: S1 normal heart sound present and S2 normal heart sound present GI Palpation (GI): Soft to palpation and nontender Auscultation: normal bowel sounds Skin General skin exam: other (ecchymosis) Assessment & Plan Assessment & Plan (1) 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 Category: Medical (2) Asthma: Code(s): J45.909 - Unspecified asthma, uncomplicated Category: Medical Qualifiers: Asthma severity: moderate Asthma persistence: persistent Asthma complication type: with acute exacerbation Qualified Code(s): J45.41 - Moderate persistent asthma with (acute) exacerbation (3) Hypoxia: Code(s): R09.02 - Hypoxemia Category: Medical (4) Tracheostomy in place: Code(s): Z93.0 - Tracheostomy status Category: Medical (5) GERD (gastroesophageal reflux disease): Code(s): K21.9 - Gastro-esophageal reflux disease without esophagitis Category: Medical Qualifiers: Esophagitis presence: without esophagitis Qualified Code(s): K21.9 - Gastro-esophageal reflux disease without esophagitis (6) Tracheobronchitis: Code(s): J40 - Bronchitis, not specified as acute or chronic Category: Medical (7) Hemoptysis: Code(s): R04.2 - Hemoptysis Category: Medical Plan start Doxycycline start augmentin sputum cx if no better Bloodwork CXR reviewed Trach [id number] Benzonates as needed Continue oxygen with sleep. PPI for reflux disease should also sleep elevated combivent Duoneb as needed while in the home F/U 3-4 months Orders: Orders Basic Metabolic Panel Today R04.2 - Hemoptysis Complete Blood Count Auto Diff Today R04.2 - Hemoptysis D Dimer High Sensitivity Today R04.2 - Hemoptysis Erythrocyte Sedimentation Rate Today R04.2 - Hemoptysis Liver Panel Today R04.2 - Hemoptysis Medications: New amoxicillin-pot clavulanate 875-125 mg 1 tab PO BID 20 tabs 0RF 10 days doxycycline hyclate 100 mg PO BID 20 caps 0RF 10 days Coding Level of Care Code Est Pt Level 4 (05139) Diagnoses Charcot Shantell Tooth muscular atrophy G60.0 Moderate persistent asthma with acute exacerbation J45.41 Asthma severity: moderate Asthma persistence: persistent Asthma complication type: with acute exacerbation Hypoxia R09.[address] Z93.0 Gastroesophageal reflux disease without esophagitis K21.9 Esophagitis presence: without esophagitis Tracheobronchitis J40 Hemoptysis R04.2 Time Spent (min) 16
--- OUTSIDE RECORDS SUMMARY | 2024-06-14 12:36 | XMS_ITS | Clinical Summary ---
Author Organization [facility] Facility Address [address] [address] Care Team Providers Care Home Companion Name Role Phone Jayshree Mishra MD Primary Care Provider [phone] Allergies Active Allergy Reactions Criticality Noted Date Comments Immune Globulin Other (see comments) 11/14/2002 puffiness Prednisone 10/23/2020 Medications acetaminophen (TYLENOL) 325 MG tablet Take 325 mg by mouth if needed 09/20/2019 Active ipratropium-albu terol (DUO-NEB) 0.5-2.5 mg/3 mL nebulizer solution Inhale 3 mL if needed 06/30/2019 Active Active Problems Problem Noted Date Diagnosed Date Hematuria, not otherwise specified 10/23/2020 Wgbdhwi-Hnsxe-Cqfkq disease 10/23/2020 Proteinuria 10/23/2020 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 Will refer to colpo-scheduled 05/04/19 with [facility]-completed. Plan repeat pap smear per . Genital [...] case she needs to be delivered in [place]) Page #[phone] at [facility] to exchange trach *PLEASE DO NOT DELETE [...] paralysis Date of tracheostomy placement: August 2006 [facility] Company: [employer] Last Assessment & Plan: ?? [facility] pulm switched her back to original trach [...] to complete this topic Insurance Care Teams Home Companion Relationship Specialty Start Date End Date Jayshree Mishra MD [address] [place] [address] PCP - General Internal Medicine 10/24/20
== END 2024-06-14 11:38 | disposition home or self-care (01) ==
PROVIDERS: PCP Internal Medicine; Visit Provider Hospitalist
DX: G60.0 Hereditary motor and sensory neuropathy (principal); J45.41 Moderate persistent asthma with (acute) exacerbation; R09.02 Hypoxemia; Z93.0 Tracheostomy status; K21.9 Gastro-esophageal reflux disease without esophagitis; J40 Bronchitis, not specified as acute or chronic; R04.2 Hemoptysis
CPT/HCPCS: 99214

== ENCOUNTER 2024-08-22 09:12 | Outpatient (AMB) | payer OTHER, SELFPAY ==
--- NOTE | 2024-08-22 09:30 | MHC.OFFVIS ---
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 The patient has been noticing since 3 days ago that she is having some chest discomfort. 8/10 in severity. Asthma getting worse. Associated with shortness of breath. Also noticed that she was coughing out some blood. She denies any sick lately like symptoms. Denies any fevers or chills. She came today for an appointment. We did change how her tracheostomy since she could not put the inner cannula back in. However her heart rate went up to 130 and her pulse ox 95%. She is 10 weeks gestation. She needs to be evaluated in the ER this time. We did review her results from when she went to the ER. She did have an elevated white count but otherwise her labs were okay. Her x-ray and her V/Q scan and lower extremity Dopplers were all reasonable. She did follow-up with Ob and had ultrasound baby that seem to be perfect. In the meantime she has been concerned about the albuterol because of the elevated heart rates in the palpitations. Now that she is with to be extremely careful. Therefore in the office we did provide her with Xopenex 1.25 mg which she tolerated significantly better. Therefore, I will send her Xopenex to the pharmacy. She failed albuterol due to the tachyarrhythmias and palpitations especially now . She has felt some palpitations getting worse as well. We did go for brief walking oximetry on room air she became short of breath and her heart rate went up to 130 and pulse ox decreased to 87 %. She was placed on 2 L nasal cannula. Her pulse ox was 98% with activity she felt a lot better on the oxygen. She needs to continue using the oxygen with activity and sleep. She will be following up with OBGYN at [facility] [phone]. She recently was admitted to [facility] for inpatient evaluation for significant hypoxia. Which she was there she had an aspiration event and became low more hypoxic. She was evaluated from a cardiac status in a pulmonary status and all the workup came back relatively negative except for diaphragmatic dysfunction likely worsened by her . The possibility of pulmonary hypertension is a reasonable thought. And because of her increased weight gain and daytime drowsiness with an elevated Morven score she will benefit from getting a sleep study. However with a tracheostomy in the tachycardia I do believe a diagnostic sleep study will be best. 11/04/2021 the patient is here for a pulmonary follow-up visit. Overall she is doing well. She denies any respiratory complaints. She is tolerating her tracheostomy well. She did mention that at home she does not use the inner cannula. When she did change her tracheostomy at the bedside I did a sister the inner part of the tracheostomy was cover with debris. Explained to her that by allowing debride to build up inside the tracheostomy it would only cause a potential obstruction if she tries to push in the inner cannula. Therefore I did ask her to keep the inner cannula and at all times. She does not seem to use her humidity all the time so therefore the mucus can get dry impacted within the trachea itself. The patient came in because she wants to be able to change her tracheostomy herself. I did assist her, but she was able to change her tracheostomy without complications. She will not be doing tracheostomy changes by herself. She does have a backup smaller trach in case she runs into difficulties. 03/09/2022 the patient is here for a pulmonary follow-up visit. Since we last spoke the patient has been doing well from a respiratory status. She has been changing her tracheostomy every month without any difficulties. denies any tenderness over the stoma site and also denies any significant secretions. She has not had any recent infections. She have an appointment soon with her ENT doctor. She continues to have her nebulized therapy. She does need a rescue inhaler for her to carry. I will provide her Combivent to the pharmacy. In addition to that she will get a flu shot. 11/11/2022 the patient is here for sick visit. She was exposed to a sick contact. Her daughter was sick with a cold last week. Now she started developing worsening cough. When she starts coughing she loses her breath. She has a hard time breathing. Last night she woke up out of a sound sleep with significant shortness of breath. She has been using her nebulizer. She denies any fevers or chills. Her cough for the most part is dry although at times she does bring up some mucus. When she does bring up the mucus is typically greenish or grayish in color. She has had history of Pseudomonas. No significant hypoxia at this time. Her respiratory exam is relatively normal. Her symptoms appear to be more consistent with croup. Likely the tracheitis has resulted in more difficulty breathing through the trach. She is keeping the trach open for better airway passage. Will go ahead and placed on Decadron for taper in addition to that the coin 4 history of Pseudomonas. She can also try the benzo nights to see if this provides her with some relief. If her symptoms worsen she will need to call for it in the evaluation of go to the ER. 02/12/2023 the patient is here for a pulmonary follow-up visit. Overall the patient has been doing well. Her new tracheostomy appears to be working well. Although she is been having some difficulties getting supplies the [employer]. They did give her a call and let her know that everything should be all set now. If she runs into any difficulty she will call back and we can sort out with the [employer] company. She has not had any recent infections. The last time she was treated was back over the summer. Secretions are stable. She is tolerating her PMV. The patient is back to going for OT and PT therapy. She is noticed a slight worsening of her upper extremity motor function. She continues use the oxygen at nighttime with good effect. The oxygen therapy has been affecting beneficial. 05/04/2023 the patient is here for sick visit. She has been sick now for more than a week. She started developing some chest tightness and cough. The cough is moderate to severe. She has a hard time sleeping. She has been suctioning some clear thick sticky phlegm. Denies any hemoptysis or colored sputum. She also has some heaviness in the chest and some chest pain. Positive sick contacts. She did test negative for the COVID. Since she has been more than wakes sick I will not swab her for any other organisms. She did have a chest x-ray which I personally reviewed. It appears that she does have patchy opacities on the right hemithorax. This is suggestive of pneumonia. Therefore go ahead and treat her with some antibiotics and also course of Decadron. She is allergic to penicillin. If the patient is no better she will call the office for an earlier assessment. 08/06/2023 the patient is here for pulmonary follow-up visit. The patient overall has been better. Her tracheostomy is in good placement. She misplaced her Passy Winifred valve so she is using a credit support counselor. A direct capsule hard for her to breathe. I did have a PMV available and I did provide her 1. She also should be able to get some from her [employer]. The trach changes have been happening without any difficulties. The patient did follow-up with Neurology and will benefit from physical therapy. In addition to that she is using the oxygen for sleep. He was seen therapy has been affecting beneficial. The patient does not have any further complaints at this time. 04/20/2024 the patient is here for a pulmonary follow-up visit. Fortunately she had been sick for the last 4 days. She started with a sore throat and not developing worsening cough shortness of breath chest tightness. Moderate severity. She was started on going to the ER. Denies any fevers or chills. She did not get tested for COVID. We did do a swab in the office but was negative for RSV flu and also COVID. She did have some evidence of stridor in the office. She does have vocal cord paralysis. She does have a trach in per the most part keeping the valve off to able to breathe better. The patient did receive treatment with Xopenex x2. Also had to receive Solu-Medrol. She is going to start antibiotics and Decadron home. If the patient does not improve she will call for an earlier assessment of go to the ER. 06/14/2024 the patient is here for a sick visit. Her daughter had influenza a and B and she also developed a URI viral syndrome. Subsequently after that she started developing cough and shortness of breath. Then she started developing some hemoptysis. She did bring some pictures with bright red blood but lately he has been getting a little bit mixed with sputum and some clots. She had an x-ray which I personally reviewed. Slight haziness over the right base suggesting a bronchopneumonia. She also has evidence of bronchitis. Likely a component of tracheitis. Will go ahead and start her on Augmentin oxygen doxycycline to cover her for community-acquired pneumonia postviral. And at this time the patient will also get blood work. She did have a D-dimer that was negative so therefore we have to worry about blood clots. She does take estrogen hormonal replacement therapy for control. I advised her to come off it. The patient will continue the antibiotics. If she is no better she will call. If the bleeding gets worse we may have to do a bronchoscopy just to clear all the clots and to assess the area of bleeding. The CT scan of the chest may be also warranted but will see how she responds to the antibiotics. 08/22/2024 the patient is here for pulmonary follow-up visit. She does feel like she is getting more chest congestion. Difficult to clear his secretions. Coughing more regularly. She did have a Acapella valve that she is using the past with minimal improvement. It may be an old 1 and will go ahead and replace it. Although I do believe that percussion vest will be more effective treating her neuromuscular disease. Will go ahead and request 1. Unfortunately she did have a injury to her shoulder and she is having that evaluated. Some of the pain does radiate to the chest. Explained to her that that the percussion vest may cause some discomfort because of that we have to see. In the meantime the patient did have a chest x-ray back in June which we personally reviewed without any acute disease she has a chronic tracheostomy. Although she does feel some discomfort in the cough is worse so therefore will request a CT scan to see if there is any significant atelectasis mucus plugging or any other pathology. Will try to get a sputum as well. If were not able to get a sputum independent on the CAT scan we can also consider bronchoscopy she does change her tracheostomy regularly and she is tolerating her PMV. She did follow-up in [place] for her neuromuscular disease which is very happy about. [facility] Medical History (Updated 06/13/24 @ 15:27 by Rashaun Irwin MD) Hemoptysis Bronchopneumonia Dysphagia GERD (gastroesophageal reflux disease) Hypoxia Tachycardia Chronic respiratory failure Chest pain Pneumonia delivery due to maternal disorder, delivered, curr hospitaliz 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 Social History Household Members: Spouse and Children Housing: House Do you presently have visiting nurse or other home services: No Alcohol intake: never Patient Tobacco Use Status: Never used Tobacco service: No Current occupational status: disabled Current occupation: right hand dominant Review of Systems Const Reports difficulty sleeping, Reports fatigue, Denies night sweats, Reports weakness and Reports weight loss ENT Denies change in voice, Denies lip swelling, Denies mouth pain, Denies nasal congestion, Denies nasal discharge and Denies tongue swelling Card Denies chest pain, Reports dyspnea and Reports dyspnea on exertion Resp Reports chest congestion, Reports cough, Denies pain on inspiration, Denies pain with cough, Reports dyspnea and Reports dyspnea on exertion GI Denies abdominal pain Musc Reports as per HPI Neuro Reports as per HPI, Denies Neuro-related abnormal movements and Reports weakness Psych Denies no additional complaints Endo Reports fatigue Ryan/Lymph Denies easy bleeding and Denies lymphadenopathy Aller/Immun Denies lip swelling and Denies tongue swelling Physical Exam Vital Signs: Last Vital Signs Pulse 101 H 08/22/24 09:31 BP 128/70 08/22/24 09:31 Pulse Ox 98 08/22/24 09:31 Oxygen Delivery Method Room Air 08/22/24 09:31 BMI result Body Mass Index 39.7 Const General: alert and tired appearing HEENT Head: Yes normocephalic Neck Neck: Yes normal visual inspection, Yes full ROM, Yes no lymphadenopathy and Yes tracheostomy present Chest Chest palpation & inspection: normal inspection of the chest Resp Effort & Inspection: normal respiratory effort and no stridor Auscultation: no rhonchi, no wheezes and diminished lung sounds Cardio Rate: regular rate Rhythm: regular rhythm Heart sounds: S1 normal heart sound present and S2 normal heart sound present GI Palpation (GI): Soft to palpation and nontender Auscultation: normal bowel sounds Skin General skin exam: other (ecchymosis) Assessment & Plan Assessment & Plan (1) 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 Category: Medical (2) Asthma: Code(s): J45.909 - Unspecified asthma, uncomplicated Category: Medical Qualifiers: Asthma complication type: with acute exacerbation Asthma persistence: persistent Asthma severity: moderate Qualified Code(s): J45.41 - Moderate persistent asthma with (acute) exacerbation (3) Hypoxia: Code(s): R09.02 - Hypoxemia Category: Medical (4) Tracheostomy in place: Code(s): Z93.0 - Tracheostomy status Category: Medical (5) GERD (gastroesophageal reflux disease): Code(s): K21.9 - Gastro-esophageal reflux disease without esophagitis Category: Medical Qualifiers: Esophagitis presence: without esophagitis Qualified Code(s): K21.9 - Gastro-esophageal reflux disease without esophagitis (6) Chest pain: Code(s): R07.9 - Chest pain, unspecified Category: Medical Qualifiers: Chest pain type: chest pain on breathing Qualified Code(s): R07.1 - Chest pain on breathing Plan CT chest to better address right sided cp, CXR non diagnostic Sputum cx Consider Bronchoscopy continue CPT with acapella valve, will request percussion vest as she is failing acapella valve Trach [id number] Benzonates as needed Continue oxygen with sleep. PPI for reflux disease should also sleep elevated Xopenex as needed start Hypertonic saline for CPT while on the vest F/U 3-4 months Orders: Orders Sputum Cult + Gram stain Today R91.1 - Solitary pulmonary nodule CT chest wo IV con Today R07.1 - Chest pain on breathing Medications: New sodium chloride 3% 4 mL inhalation BID 240 mL 11RF 30 days Refilled levalbuterol HCl 1.25 mg (3 mL) inhalation BID 180 mL 9RF 30 days J44.9 - Chronic obstructive pulmonary disease, unspecified Coding Level of Care Code Est Pt Level 5 (01263) Diagnoses Charcot Shantell Tooth muscular atrophy G60.0 Moderate persistent asthma with acute exacerbation J45.41 Asthma complication type: with acute exacerbation Asthma persistence: persistent Asthma severity: moderate Hypoxia R09.[address] Z93.0 Gastroesophageal reflux disease without esophagitis K21.9 Esophagitis presence: without esophagitis Chest pain on breathing R07.1 Chest pain type: chest pain on breathing Time Spent (min) 35
[2024-08-22 09:31] VITALS: BP 128/70; PULSE 101; O2SAT 98; BMI 39.7
--- OUTSIDE RECORDS SUMMARY | 2024-08-22 09:53 | XMS_ITS | Clinical Summary ---
Author Organization [facility] Facility Address [address] [address] Care Team Providers Care Ventilator Specialist Name Role Phone Jayshree Mishra MD Primary Care Provider [phone] Allergies Active Allergy Reactions Criticality Noted Date Comments Immune Globulin Other (see comments) 11/14/2002 puffiness Prednisone 10/23/2020 Medications acetaminophen (TYLENOL) 325 MG tablet Take 325 mg by mouth if needed 09/20/2019 Active ipratropium-albu terol (DUO-NEB) 0.5-2.5 mg/3 mL nebulizer solution Inhale 3 mL if needed 06/30/2019 Active Active Problems Problem Noted Date Diagnosed Date Hematuria, not otherwise specified 10/23/2020 Mmuwufr-Gemlb-Nsgab disease 10/23/2020 Proteinuria 10/23/2020 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 Resolved Problems Problem Noted Date Diagnosed Date Resolved Date care status 10/28/20192020 Overview (10/23/2020): C/s 5/15 girl 35 weeks-3lb Needs repeat pap with [employer] Contracep: Mood: Restrictive lung mechanics d ue [...] 03/2019-LGSIL. Will refer to colpo-scheduled 05/04/19 with [facility]-completed. Plan repeat pap smear per . Genital [...] case she needs to be delivered in [place]) Page #[phone] at [facility] to exchange trach *PLEASE DO NOT DELETE [...] paralysis Date of tracheostomy placement: August 2006 [facility] Company: [employer] Last Assessment & Plan: ?? [facility] pulm switched her back to original trach without cuff due to swelling and discomfort ?? She is now carrying the cuffed trach in her bag wherever she goes so it can be changed out for delivery ?? Touched base with ob anesthesia regarding logistics of trach change and will update the care coordination note Immunizations Immunization Administration Dates Next Due Influenza TIV (IM) [...] - 19+ 3-dose series) 07/18/2010 Influenza Vaccine (Season Ended) 2025 04/03/2019, 03/22/2018, 03/03/2018, Additional history exists Pneumococcal Vaccine: Peds (0 to 5 Years) and At-Risk Patients (6 to 49 Years) Aged Out No longer eligi ble based on patient's age to complete this topic Insurance Care Teams Ventilator Specialist Relationship Specialty Start Date End Date Jayshree Mishra MD [address] [place] [address] PCP - General Internal Medicine 10/24/20
--- OUTSIDE RECORDS SUMMARY | 2024-08-22 09:53 | XMS_ITS ---
Author Organization [facility] Address [address] [place] [address] Care Team Providers Care Flat Knitter Name Role Phone HARRINGTONMICHELINE [phone] REASON FOR VISIT Reschedule Appointment Request Encounters Encounter Location Date Provider Diagnosis [facility] [address] [place] [address] 06/27/2024 MICHELINE HARRINGTON PLAN OF TREATMENT No Information Progress Notes * Jessica DUBOSEDOB:1990 (33 yo F)Acc No.[id number]:06/27/2024 Patient:??GRACYBrandanlucia :1990?Age:33 Y?Sex:Fe male Address:[address] [place] [address] * true * Date:??
--- OUTSIDE RECORDS SUMMARY | 2024-08-22 09:53 | XMS_ITS ---
Author Organization [facility] Address [address] [place] [address] Care Team Providers Care Golf Coach Name Role Phone MICHELINE HARRINGTON [phone] REASON FOR VISIT Cancel Appointment Request Encounters Encounter Location Date Provider Diagnosis [facility] [address] [place] [address] 06/27/2024 MICHELINE HARRINGTON PLAN OF TREATMENT No Information Progress Notes * Jessica DUBOSEDOB:1990 (33 yo F)Acc No.[id number]:06/27/2024 Patient:??GRACYBrandanlucia :1990?Age:33 Y?Sex:Fe male Address:[address] [place] [id number] * true * Date:??
--- OUTSIDE RECORDS SUMMARY | 2024-08-22 09:54 | XMS_ITS ---
Author Organization [facility] Address [address] [place] [address] Care Team Providers Care Cabinet Abrasive Sandblaster Name Role Phone HARRINGTON, MICHELINE Simin [phone] REASON FOR VISIT 6 week f/u MEDICATIONS Medication SIG (Take, Route, Fr equency, Duration) Notes Start Date End Date Status Phentermine HCl 30 MG 1 capsule Orally O nce a day for 30 days 05/16/2024 Active Encounters Encounter Location Date Provider Diagnosis [facility] [address] [place] [address] 06/28/2024 MICHELINE HARRINGTON PLAN OF TREATMENT No Information Progress Notes * Jessica DUBOSEDOB:1990 (34 yo F)Acc No.[id number]:06/28/2024 Patient:??Jessica DUBOSE Provider:??MICHELINE FARRIS PA-C :1990?Age:33 Y?Sex:Fe male Date:06/28/2024 Address:[address] [place], [place] [id number] Subjective: * Chief Complaints: * ?1. 6 week f/u. * Medical History:?? * Medications:??Taking Phenter mine HCl 30 MG Capsule 1 capsule Orally Once a day Objective: Assessment: Plan: * Treatment: * Images: Billing Information: * Visit Code:?? * Procedure Codes:?? * Sign off status: Pending * Provider:??MICHELINE FARRIS PA-C Date:??06/04
--- OUTSIDE RECORDS SUMMARY | 2024-08-22 09:54 | XMS_ITS | Patient Health Record ---
Author Organization [facility] Address [address] [place] [address] Care Team Providers Care User Experience Architect Name Role Phone MICHELINE HARRINGTON Unavailable [phone] CAROL MARQUEZ Unavailable [phone] ALLERGIES Allergen (clinical drug ingredient) Drug/Non Drug [...] Notes Problem Other obesity (E66.8) Active confirmed 447656636 Problem BMI 40.0-44.9, adult (Z68.41) Active confirmed [id number] Problem Obesity (BMI 30-39.9) (E66.9) Active confirmed 792416954 Problem PCOS (polycystic ovarian syndrome) (E28.2) Active confirmed Polycystic ovar y syndrome (disorder) (187642364) Problem BMI 39.0-39.9,adult (Z68.39) Active confirmed 147318623 Problem BMI 38.0-38.9,adult (Z68.38) Active confirmed 631883364 Problem Ixkpznb-Qpnrg-Dc 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) Active confirmed 689684282 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 [address] [place] [address] 08/31/2023 MICHELINE HARRINGTON [facility] [address] [place] [address] 06/28/2024 MICHELINE HARRINGTON [facility] [address] [place] [address] 01/06/2024 CAROL MARQUEZ Other obesity E66.8 ; BMI 38.0-38.9,adult Z68.38 ; Pybxgos-Cogdq-Uoysw disease G60.0 ; Tracheostomy dependent Z93.0 and BMI 40.0-44.9, adult Z68.41 [facility] [address] [place] [address] 04/05/2024 MICHELINE HARRINGTON Obesity (BMI 30-39.9 ) E66.9 ; BMI 39.0-39.9,adult Z68.39 ; Lakpkkz-Tttef-Yharj disease G60.0 and Tracheostomy dependent Z93.0 [facility] [address] [place] [address] 05/16/2024 MICHELINE HARRINGTON Obesity (BMI 30-39.9 ) E66.9 ; BMI 38.0-38.9,adult Z68.38 ; Kgfekrt-Tzmxk-Yqxsj disease G60.0 and Tracheostomy dependent Z93.[address] [facility] [address] [place] [address] 01/06/2024 MICHELINE LEN Other obesity E66.8 [address] [facility] [address] [place] [address] 03/06/2024 MICHELINE LEN Other obesity E66.8 [facility] [address] [place] [address] 06/27/2024 MICHELINE HARRINGTON [facility] [address] [place] [address] 06/27/2024 MICHELINE HARRINGTON ASSESSMENTS Encounter Date Diagnosis Assessment Notes Treatment Notes Treatment Clinical Notes Section Notes 01/06/2024 Other obesity (ICD-10 - E66.8) Jessica Is a 33 year-old female who presents the office for weight management follow-up. 01/14/2023:Weight 252.7 pounds, BMI 43.37. Patient welcomed to the practice. Extensively educated on lifestyle modifications including high-protein foods, low carbohydrate snacks, healthy fats, sleep hygiene, stress reduction. Patient provided with educational documentation regarding all of this. 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 Will follow-up in 4-6 weeks. #Eafhhpz-Lbheq-Nmfsi disease: Follows with neurologist Dr. Bland. Occasions [...] Dictation was accomplished with the use of [employer] voice recognition software, prone to medical misidentifications [...] this. 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 Will follow-up in 4-6 weeks. #Zpuwhqq-Xmykh-Zbgzh disease: Follows with neurologist Dr. Bland. Occasions [...] Dictation was accomplished with the use of [employer] voice recognition software, prone to medical misidentifications [...] this. 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 #Gmlflzh-Nadkr-Ffcaf disease: Follows with neurologist Dr. Bland. Occasions [...] Dictation was accomplished with the use of [employer] voice recognition software, prone to medical misidentifications [...] this. 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 #Nqlownm-Fekor-Lrqsx disease: Follows with neurologist Dr. Bland. Occasions [...] Dictation was accomplished with the use of [employer] voice recognition software, prone to medical misidentifications [...] this. 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 #Yrmhtvh-Ttdkv-Zidop disease: Follows with neurologist Dr. Bland. Occasions [...] Dictation was accomplished with the use of [employer] voice recognition software, prone to medical misidentifications [...] this. 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 #Njyrcgo-Dwwgg-Lvjpq disease: Follows with neurologist Dr. Bland. Occasions [...] Dictation was accomplished with the use of [employer] voice recognition software, prone to medical misidentifications and grammatical errors. This is unintentional and the practitioner does try to identify and correct these, but some could still be present. Please do not hesitate to contact practitioner for clarification. 05/16/2024 Uzhxidb-Kkfvk-M ooth disease (ICD-10 - G60.0) Jessica Is a 33 year-old female who presents the office for weight management follow-up. 01/14/2023:Weight 252.7 pounds, BMI 43.37. Patient welcomed to the practice. Extensively educated on lifestyle modifications including high-protein foods, low carbohydrate snacks, healthy fats, sleep hygiene, stress reduction. Patient provided with educational documentation regarding all of this. 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 #Bqizaku-Wwjnc-Jpzxh disease: Follows with neurologist Dr. Bland. Occasions [...] Dictation was accomplished with the use of [employer] voice recognition software, prone to medical misidentifications and grammatical errors. This is unintentional and the practitioner does try to identify and correct these, but some could still be present. Please do not hesitate to contact practitioner for clarification. 04/05/2024 Ufahutw-Kncdr-O ooth disease (ICD-10 - G60.0) Jessica Is a 33 year-old female who presents the office for weight management follow-up. 01/14/2023:Weight 252.7 pounds, BMI 43.37. Patient welcomed to the practice. Extensively educated on lifestyle modifications including high-protein foods, low carbohydrate snacks, healthy fats, sleep hygiene, stress reduction. Patient provided with educational documentation regarding all of this. 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 #Nwoywxi-Tbteg-Xhjio disease: Follows with neurologist Dr. Bland. Occasions [...] Dictation was accomplished with the use of [employer] voice recognition software, prone to medical misidentifications and grammatical errors. This is unintentional and the practitioner does try to identify and correct these, but some could still be present. Please do not hesitate to contact practitioner for clarification. 01/06/2024 Xevnbqa-Qsico-N ooth disease (ICD-10 - G60.0) Jessica Is a 33 year-old female who presents the office for weight management follow-up. 01/14/2023:Weight 252.7 pounds, BMI 43.37. Patient welcomed to the practice. Extensively educated on lifestyle modifications including high-protein foods, low carbohydrate snacks, healthy fats, sleep hygiene, stress reduction. Patient provided with educational documentation regarding all of this. 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 Will follow-up in 4-6 weeks. #Hkxozui-Rcbuo-Bjlfn disease: Follows with neurologist Dr. Bland. Occasions [...] Dictation was accomplished with the use of [employer] voice recognition software, prone to medical misidentifications [...] this. 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 Will follow-up in 4-6 weeks. #Gkqkwnu-Whcrd-Ddvxb disease: Follows with neurologist Dr. Bland. Occasions [...] Dictation was accomplished with the use of [employer] voice recognition software, prone to medical misidentifications [...] this. 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 #Zivexhb-Qgjmn-Hhnzv disease: Follows with neurologist Dr. Bland. Occasions [...] Dictation was accomplished with the use of [employer] voice recognition software, prone to medical misidentifications [...] this. 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 #Evgjdxe-Pjqdb-Ncnsq disease: Follows with neurologist Dr. Bland. Occasions [...] Dictation was accomplished with the use of [employer] voice recognition software, prone to medical misidentifications [...] this. 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 Will follow-up in 4-6 weeks. #Gjjrfuz-Snqby-Nytyg disease: Follows with neurologist Dr. Bland. Occasions [...] Dictation was accomplished with the use of [employer] voice recognition software, prone to medical misidentifications and grammatical errors. This is unintentional and the practitioner does try to identify and correct these, but some could still be present. Please do not hesitate to contact practitioner for clarification. PLAN OF TREATMENT Pending Test Test Name Order Date EKG 06/02/2023 Insurance Providers Payer Name Payer Address Payer Phone Subscriber Number Group Number Insured Name Patient Relationship to Insured Coverage Start Date Coverage End Date [employer] or Options [address] [place] [id number] [place] Self - patient is the insured 2 MEDICATIONS ADMINISTERED Medication Instructions Date of Administration Dosage Notes Semaglutide 02/11/2023 0.25 sema 0.25mg Semaglutide 02/17/2023 0.25 mg LOT # [id number] 0.25MG Semaglutide 02/23/2023 0.25 mg lot# [id number] Semaglutide 03/02/2023 lot#[id number] 0.25mg Semaglutide 03/11/2023 0.25 mg LLQ SQ [...]
== END 2024-08-22 09:57 | disposition home or self-care (01) ==
LOC: HO.HPS 09:12
PROVIDERS: PCP Internal Medicine; Visit Provider Hospitalist
DX: J45.41 Moderate persistent asthma with (acute) exacerbation (principal); G60.0 Hereditary motor and sensory neuropathy; R09.02 Hypoxemia; Z93.0 Tracheostomy status; R07.1 Chest pain on breathing
CPT/HCPCS: 99215

== ENCOUNTER → 2024-08-22 09:12 | Outpatient (BNVA) | payer OTHER, SELFPAY | PROVIDERS: PCP Internal Medicine; Visit Provider Hospitalist | DX: J45.41 Moderate persistent asthma with (acute) exacerbation (principal); R09.02 Hypoxemia; R07.1 Chest pain on breathing; K21.9 Gastro-esophageal reflux disease without esophagitis; G60.0 Hereditary motor and sensory neuropathy; Z93.0 Tracheostomy status | CPT/HCPCS: 99212 ==

== ENCOUNTER 2024-09-04 14:32 | Outpatient (REF) | payer OTHER, SELFPAY ==
--- OUTSIDE RECORDS SUMMARY | 2024-09-04 16:04 | XMS_ITS | Clinical Summary ---
Author Organization [facility] Facility Address [address] [address] Care Team Providers Care Salesperson Sheet Music Name Role Phone Jayshree Mishra MD Primary Care Provider [phone] Allergies Active Allergy Reactions Criticality Noted Date Comments Immune Globulin Other (see comments) 11/14/2002 puffiness Prednisone 10/23/2020 Medications acetaminophen (TYLENOL) 325 MG tablet Take 325 mg by mouth if needed 09/20/2019 Active ipratropium-albu terol (DUO-NEB) 0.5-2.5 mg/3 mL nebulizer solution Inhale 3 mL if needed 06/30/2019 Active Active Problems Problem Noted Date Diagnosed Date Hematuria, not otherwise specified 10/23/2020 Jhqnhnb-Iynxq-Wmiau disease 10/23/2020 Proteinuria 10/23/2020 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 Will refer to colpo-scheduled 05/04/19 with [facility]-completed. Plan repeat pap smear per . Genital [...] case she needs to be delivered in [place]) Page #[phone] at [facility] to exchange trach *PLEASE DO NOT DELETE [...] paralysis Date of tracheostomy placement: August 2006 [facility] [place] [employer] Last Assessment & Plan: ?? [facility] pulm switched her back to original trach [...] to complete this topic Insurance Care Teams Salesperson Sheet Music Relationship Specialty Start Date End Date Jayshree Mishra MD [address] [place] [address] PCP - General Internal Medicine 10/24/20
--- OUTSIDE RECORDS SUMMARY | 2024-09-04 16:04 | XMS_ITS ---
Author Organization [facility] Address [address] [place] [address] Care Team Providers Care Loss Control Representative Name Role Phone HARRINGTONMICHELINE [phone] REASON FOR VISIT Reschedule Appointment Request Encounters Encounter Location Date Provider Diagnosis [facility] [address] [place] [address] 06/27/2024 MICHELINE HARRINGTON PLAN OF TREATMENT No Information Progress Notes * Jessica DUBOSEDOB:1990 (33 yo F)Acc No.[id number]:06/27/2024 Patient:??GRACY Brandanlucia :1990?Age:33 Y?Sex:Fe male Address:[address] [place] [id number] * true * Date:??
--- OUTSIDE RECORDS SUMMARY | 2024-09-04 16:05 | XMS_ITS | Patient Health Record ---
Author Organization [facility] Address [address] [place] [address] Care Team Providers Care Filler Spreader Name Role Phone MICHELINE HARRINGTON Unavailable [phone] CAROL MARQUEZ Unavailable [phone] ALLERGIES Allergen (clinical drug ingredient) Drug/Non Drug [...] Notes Problem Other obesity (E66.8) Active confirmed 507689409 Problem BMI 40.0-44.9, adult (Z68.41) Active confirmed [id number] Problem Obesity (BMI 30-39.9) (E66.9) Active confirmed 485436031 Problem PCOS (polycystic ovarian syndrome) (E28.2) Active confirmed Polycystic ovary syndrome (disorder) (206920140) Problem BMI 39.0-39.9,adult (Z68.39) Active confirmed 035973187 Problem BMI 38.0-38.9,adult (Z68.38) Active confirmed 610404513 Problem Kamtjgr-Bmpgr-Cvs th disease (G60.0) Active confirmed 813846150 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 VITAL SIGNS Heart Rate 99 /min 05/16/2024 Oximetry 92 % 05/16/2024 Blood pressure diastolic 64 mm Hg 05/16/2024 Height 64 in 05/16/2024 Blood pressure systolic 116 mm Hg 05/16/2024 Weight 224.0 lbs 05/16/2024 BMI 38.45 kg/m2 05/16/2024 Encounters Encounter Location Date Provider Diagnosis [facility] [address] [place] [address] 06/28/2024 MICHELINE HARRINGTON [facility] [address] [place] [address] 01/06/2024 CAROL MARQUEZ Other obesity E66.8 ; BMI 38.0-38.9,adult Z68.38 ; Akfxcwr-Fhqno-Uovsk disease G60.0 ; Tracheostomy dependent Z93.0 and BMI 40.0-44.9, adult Z68.41 [facility] [address] [place] [address] 04/05/2024 MICHELINE HARRINGTON Obesity (BMI 30-39.9 ) E66.9 ; BMI 39.0-39.9,adult Z68.39 ; Gdekbyc-Avfev-Ubvmt disease G60.0 and Tracheostomy dependent Z93.0 [facility] [address] [place] [address] 05/16/2024 MICHELINE HARRINGTON Obesity (BMI 30-39.9 ) E66.9 ; BMI 38.0-38.9,adult Z68.38 ; Kerbqbn-Wqqln-Hezan disease G60.0 and Tracheostomy dependent Z93.[address] [facility] [address] [place] [address] 01/06/2024 MICHELINE HARRINGTON Other obesity E66.8 [address] [facility] [address] [facility] [address] [place] [address] 03/06/2024 MICHELINE HARRINGTON Other obesity E66.8 [facility] [address] [facility] [place] [address] 06/27/2024 MICHELINE HARRINGTON [facility] [address] [facility] [place] [address] 06/27/2024 MICHELINE HARRINGTON ASSESSMENTS Encounter Date Diagnosis [...] this. 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 Will follow-up in 4-6 weeks. #Dzkukty-Riyhv-Mabcr disease: Follows with neurologist Dr. Bland. Occasions [...] Dictation was accomplished with the use of Likva voice recognition software, prone to medical misidentifications and grammatical errors. This is unintentional and the practitioner does try to identify and correct these, but some could still be present. Please do not hesitate to contact practitioner for clarification. 01/06/2024 BMI 38.0-38.9,adult (ICD-10 - Z68.38) Jessiac Is a 33 year-old female who presents the office for weight management follow-up. 01/14/2023:Weight 252.7 pounds, BMI 43.37. Patient welcomed to the practice. Extensively educated on lifestyle modifications including high-protein foods, low carbohydrate snacks, healthy fats, sleep hygiene, stress reduction. Patient provided with educational documentation regarding all of this. 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 Will follow-up in 4-6 weeks. #Jwimold-Aaoxr-Sdafx disease: Follows with neurologist Dr. Bland. Occasions [...] Dictation was accomplished with the use of Likva voice recognition software, prone to medical misidentifications [...] this. 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 #Ommscix-Pbzyc-Tbwyr disease: Follows with neurologist Dr. Bland. Occasions [...] Dictation was accomplished with the use of Likva voice recognition software, prone to medical misidentifications [...] this. 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 #Wvpkcuk-Fnrbd-Uculo disease: Follows with neurologist Dr. Bland. Occasions [...] Dictation was accomplished with the use of Likva voice recognition software, prone to medical misidentifications [...] this. 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 #Lnxcwjj-Iffya-Wnacz disease: Follows with neurologist Dr. Bland. Occasions [...] Dictation was accomplished with the use of Likva voice recognition software, prone to medical misidentifications [...] this. 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 #Vqnohru-Yugmv-Hszjm disease: Follows with neurologist Dr. Bland. Occasions [...] arise. Case discussed with collaborating physician Pat Richarsd who reviewed the assessment and plan. Chart, medications, labs, vital signs reviewed. Dictation was accomplished with the use of Likva voice recognition software, prone to medical misidentifications and grammatical errors. This is unintentional and the practitioner does try to identify and correct these, but some could still be present. Please do not hesitate to contact practitioner for clarification. 05/16/2024 Mgwjobt-Wcthj-T ooth disease (ICD-10 - G60.0) Jsesica Is a 33 year-old female who presents the office for weight management follow-up. 01/14/2023:Weight 252.7 pounds, BMI 43.37. Patient welcomed to the practice. Extensively educated on lifestyle modifications including high-protein foods, low carbohydrate snacks, healthy fats, sleep hygiene, stress reduction. Patient provided with educational documentation regarding all of this. 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 This makes her difficult to exercise. Is interested in weight loss medications but will contact Dr. Gmoez her neurologist before starting her on anything. [...] exercising regularly, and portions have improved significantly. #Xyzmvye-Netnk-Jcqtu disease: Follows with neurologist Dr. Bland. Occasions [...] Dictation was accomplished with the use of Likva voice recognition software, prone to medical misidentifications and grammatical errors. This is unintentional and the practitioner does try to identify and correct these, but some could still be present. Please do not hesitate to contact practitioner for clarification. 04/05/2024 Vyrhimd-Axsmo-L ooth disease (ICD-10 - G60.0) Jessica Is a 33 year-old female who presents the office for weight management follow-up. 01/14/2023:Weight 252.7 pounds, BMI 43.37. Patient welcomed to the practice. Extensively educated on lifestyle modifications including high-protein foods, low carbohydrate snacks, healthy fats, sleep hygiene, stress reduction. Patient provided with educational documentation regarding all of this. 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 #Rvvtlra-Uiovt-Mkqfp disease: Follows with neurologist Dr. Bland. Occasions [...] Dictation was accomplished with the use of Dragon voice recognition software, prone to medical misidentifications and grammatical errors. This is unintentional and the practitioner does try to identify and correct these, but some could still be present. Please do not hesitate to contact practitioner for clarification. 01/06/2024 Oxogkld-Bbnrg-S ooth disease (ICD-10 - G60.0) Jessica Is a 33 year-old female who presents the office for weight management follow-up. 01/14/2023:Weight 252.7 pounds, BMI 43.37. Patient welcomed to the practice. Extensively educated on lifestyle modifications including high-protein foods, low carbohydrate snacks, healthy fats, sleep hygiene, stress reduction. Patient provided with educational documentation regarding all of this. 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 Will follow-up in 4-6 weeks. #Tnanlyt-Omqqp-Gzpug disease: Follows with neurologist Dr. Bland. Occasions [...] Dictation was accomplished with the use of Likva voice recognition software, prone to medical misidentifications [...] this. 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 Will follow-up in 4-6 weeks. #Pgseoxa-Zfrgs-Mqssb disease: Follows with neurologist Dr. Bland. Occasions [...] Dictation was accomplished with the use of Likva voice recognition software, prone to medical misidentifications [...] this. 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 #Ddgrelg-Ynvrt-Oogwd disease: Follows with neurologist Dr. Bland. Occasions [...] Dictation was accomplished with the use of Likva voice recognition software, prone to medical misidentifications [...] this. 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 #Riucyie-Vyrqc-Ekwsi disease: Follows with neurologist Dr. Bland. Occasions [...] Dictation was accomplished with the use of Likva voice recognition software, prone to medical misidentifications [...] this. 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 Will follow-up in 4-6 weeks. #Wbpyrcg-Cggpm-Trqpx disease: Follows with neurologist Dr. Bland. Occasions [...] Dictation was accomplished with the use of Likva voice recognition software, prone to medical misidentifications [...] or Options [address] [place] [address] [phone] Jessica Salvador Self - patient is the insured 2 MEDICATIONS ADMINISTERED Medication Instructions Date of Administration Dosage Notes Semaglutide 02/11/2023 0.25 sema 0.25mg Semaglutide 02/17/2023 0.25 mg LOT # [id number] 0.25MG Semaglutide 02/23/2023 0.25 mg lot# [id number] Semaglutide 03/02/2023 lot#[id number] 0.25mg Semaglutide 03/11/2023 0.25 mg LLQ SQ [...]
--- OUTSIDE RECORDS SUMMARY | 2024-09-04 16:05 | XMS_ITS ---
Author Organization [facility] Address [address] [place] [address] Care Team Providers Care Nutrition Tech Name Role Phone MICHELINE HARRINGTON [phone] REASON FOR VISIT Cancel Appointment Request Encounters Encounter Location Date Provider Diagnosis [facility] [address] [place] [address] 06/27/2024 MICHELINE HARRINGTON PLAN OF TREATMENT No Information Progress Notes * Jessica DUBOSEDOB:1990 (33 yo F)Acc No.[id number]:06/27/2024 Patient:??GRACYBrandanlucia :1990?Age:33 Y?Sex:Fe male Address:[address] [place] [address] * true * Date:??
--- OUTSIDE RECORDS SUMMARY | 2024-09-04 16:05 | XMS_ITS ---
Author Organization [facility] Address [address] [place] [address] Care Team Providers Care Customer Program Specialist Name Role Phone HARRINGTON, MICHELINE Simin [phone] REASON FOR VISIT 6 week f/u MEDICATIONS Medication SIG (Take, Route, Fr equency, Duration) Notes Start Date End Date Status Phentermine HCl 30 MG 1 capsule Orally O nce a day for 30 days 05/16/2024 Active Encounters Encounter Location Date Provider Diagnosis [facility] [address] [place] [address] 06/28/2024 MICHELINE HARRINGTON PLAN OF TREATMENT No Information Progress Notes * Jessica DUBOSEDOB:1990 (34 yo F)Acc No.[id number]:06/28/2024 Patient:??Jessica DUBOSE Provider:??MICHELINE FARRIS PA-C :1990?Age:33 Y?Sex:Fe male Date:06/28/2024 Address:[address] [place], [place] [id number] Subjective: * Chief Complaints: * ?1. 6 week f/u. * Medical History:?? * Medications:??Taking Phenter mine HCl 30 MG Capsule 1 capsule Orally Once a day Objective: Assessment: Plan: * Treatment: * Images: Billing Information: * Visit Code:?? * Procedure Codes:?? * Sign off status: Pending * Provider:??MICHELINE FARRIS PA-C Date:??06/04
== END 2024-09-04 14:33 | disposition home or self-care (01) ==
LOC: HO.LNP 14:32
PROVIDERS: Visit Provider Hospitalist
DX: R91.1 Solitary pulmonary nodule (principal)
CPT/HCPCS: 87070; 87205

== ENCOUNTER 2024-09-26 07:23 | Outpatient (REF) | payer OTHER, SELFPAY ==
--- NOTE | ~2024-09-26 | CT_ITS ---
EXAMINATION: CT CHEST WITHOUT IV CONTRAST INDICATION: R07.1 - Chest pain on breathing COMPARISON: Paracent is made with the prior examination dated 09/05/2020. TECHNIQUE: Helical CT scan of the chest was performed without intravenous contrast. Coronal and sagittal reformatted images were generated and reviewed. This CT exam was performed with one or more of the following dose reduction techniques: automated exposure control, adjustment of the mA and/or kV according to patient size, use of iterative reconstruction technique. DLP: 201 mGy-cm CHEST: THYROID: The thyroid is unremarkable. LUNGS: There is minimal subsegmental atelectasis versus scarring in both lower lobes. The lungs are otherwise clear. MEDIASTINUM: There is no mediastinal lymphadenopathy. TAHIR: Evaluation of the hilar regions is limited by lack of intravenous contrast material. CARDIOVASCULATURE: The heart is enlarged. There is no pericardial effusion. The thoracic aorta is normal in caliber. DEGREE OF CORONARY CALCIFICATION: none PLEURA: There is no pleural effusion. No pneumothorax. MAIN AIRWAYS: Tracheostomy tube is again seen in place. The mainstem bronchi and proximal branches are patent. AXILLA: There is no axillary lymphadenopathy. BONES AND SOFT TISSUES: Unremarkable UPPER ABDOMEN: The visualized portions of the liver, spleen, and adrenals have an unremarkable unenhanced appearance. CT/CT chest wo IV con IMPRESSION: Cardiomegaly. Minimal subsegmental atelectasis versus scarring at the lung bases. Electronically signed by: Keegan Dow MD 09/26/2024 08:46 AM EDT
--- OUTSIDE RECORDS SUMMARY | 2024-09-26 07:25 | XMS_ITS | Clinical Summary ---
Author Organization [facility] Facility Address [address] [address] Care Team Providers Care Basketball Commentator Name Role Phone Jayshree Mishra MD Primary Care Provider [phone] Allergies Active Allergy Reactions Criticality Noted Date Comments Immune Globulin Other (see comments) 11/14/2002 puffiness Prednisone 10/23/2020 Medications acetaminophen (TYLENOL) 325 MG tablet Take 325 mg by mouth if needed 09/20/2019 Active ipratropium-albu terol (DUO-NEB) 0.5-2.5 mg/3 mL nebulizer solution Inhale 3 mL if needed 06/30/2019 Active Active Problems Problem Noted Date Diagnosed Date Hematuria, not otherwise specified 10/23/2020 Yjrvxbh-Cojbe-Sryko disease 10/23/2020 Proteinuria 10/23/2020 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 Will refer to colpo-scheduled 05/04/19 with [facility]-completed. Plan repeat pap smear per . Genital [...] case she needs to be delivered in [place]) Page #[phone] at [facility] to exchange trach *PLEASE DO NOT DELETE [...] paralysis Date of tracheostomy placement: August 2006 [facility] Company: [employer] Last Assessment & Plan: ?? [facility] pulm switched her back to original trach [...] to complete this topic Insurance Care Teams Basketball Commentator Relationship Specialty Start Date End Date Jayshree Mishra MD [address] [place] [address] PCP - General Internal Medicine 10/24/20
== END 2024-09-26 07:24 | disposition home or self-care (01) ==
LOC: HO.CT 07:23
PROVIDERS: PCP Internal Medicine; Visit Provider Hospitalist
DX: R07.1 Chest pain on breathing (principal)
CPT/HCPCS: 71250

== ENCOUNTER → 2024-09-26 07:28 | Outpatient (BNV) | payer OTHER, SELFPAY | PROVIDERS: PCP Internal Medicine; Visit Provider Radiology Diagnostic Radiology | DX: I51.7 Cardiomegaly (principal) | CPT/HCPCS: 71250 ==

== ENCOUNTER 2024-10-19 11:15 | Outpatient (AMB) | payer OTHER, SELFPAY ==
--- OUTSIDE RECORDS SUMMARY | 2024-06-28 06:15 | XMS_ITS ---
Author Organization [facility] Address [address] [place] [address] Care Team Providers Care Coin Wrapping Machine Operator Name Role Phone MICHELINE HARRINGTON Unavailable [phone] REASON FOR VISIT 6 week f/u Medications Medication SIG (Take, Route, Fr equency, Duration) Notes Start Date End Date Status Phentermine HCl 30 MG 1 capsule Orally O nce a day for 30 days 05/16/2024 Active Encounters Encounter Location Date Provider Diagnosis [facility] [address] [place] [address] 06/28/2024 MICHELINE HARRINGTON Plan Of Treatment No Information Progress Notes * GRACYBrandanluciaDOB:1990 (34 yo F)Acc No.[id number]:06/28/2024 Patient: Jessica PAPPAS Provider: Jerod FARRIS PA-C :1990 A ge:33 Y S ex:Female Date:06/28/2024 Address:[address] [place], [place] [phone] Subjective: * Chief Complaints: * 1 . 6 week f/u. * Medical History: * Medications: T aking Phentermine HCl 30 MG Capsule 1 capsule Orally Once a day Objective: * Vitals: Assessment: Plan: * Treatment: * Images: Billing Information: * Visit Code: * Procedure Codes: * Electronic signature of SHILOH HARRINGTON PA-C on 10/19/2024 at 12:45 PM EDT Sign off status: Pending * Provider: Jerod FARRIS PA-C Date: 0 06/28/2024 Generated for Ana Maria armstrong/Fior/eTransmitting on: 0 10/19/2024 12:45 PM EDT
--- NOTE | 2024-10-19 11:16 | A.OFFVIS_ITS ---
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 The patient has been noticing since 3 days ago that she is having some chest discomfort. 8/10 in severity. Asthma getting worse. Associated with shortness of breath. Also noticed that she was coughing out some blood. She denies any sick lately like symptoms. Denies any fevers or chills. She came today for an appointment. We did change how her tracheostomy since she could not put the inner cannula back in. However her heart rate went up to 130 and her pulse ox 95%. She is 10 weeks gestation. She needs to be evaluated in the ER this time. We did review her results from when she went to the ER. She did have an elevated white count but otherwise her labs were okay. Her x-ray and her V/Q scan and lower extremity Dopplers were all reasonable. She did follow-up with Ob and had ultrasound baby that seem to be perfect. In the meantime she has been concerned about the albuterol because of the elevated heart rates in the palpitations. Now that she is with to be extremely careful. Therefore in the office we did provide her with Xopenex 1.25 mg which she tolerated significantly better. Therefore, I will send her Xopenex to the pharmacy. She failed albuterol due to the tachyarrhythmias and palpitations especially now . She has felt some palpitations getting worse as well. We did go for brief walking oximetry on room air she became short of breath and her heart rate went up to 130 and pulse ox decreased to 87 %. She was placed on 2 L nasal cannula. Her pulse ox was 98% with activity she felt a lot better on the oxygen. She needs to continue using the oxygen with activity and sleep. She will be following up with OBGYN at [facility] [phone]. She recently was admitted to [facility] for inpatient evaluation for significant hypoxia. Which she was there she had an aspiration event and became low more hypoxic. She was evaluated from a cardiac status in a pulmonary status and all the workup came back relatively negative except for diaphragmatic dysfunction likely worsened by her . The possibility of pulmonary hypertension is a reasonable thought. And because of her increased weight gain and daytime drowsiness with an elevated [place] score she will benefit from getting a sleep study. However with a tracheostomy in the tachycardia I do believe a diagnostic sleep study will be best. 11/04/2021 the patient is here for a pulmonary follow-up visit. Overall she is doing well. She denies any respiratory complaints. She is tolerating her tracheostomy well. She did mention that at home she does not use the inner cannula. When she did change her tracheostomy at the bedside I did a sister the inner part of the tracheostomy was cover with debris. Explained to her that by allowing debride to build up inside the tracheostomy it would only cause a potential obstruction if she tries to push in the inner cannula. Therefore I did ask her to keep the inner cannula and at all times. She does not seem to use her humidity all the time so therefore the mucus can get dry impacted within the trachea itself. The patient came in because she wants to be able to change her tracheostomy herself. I did assist her, but she was able to change her tracheostomy without complications. She will not be doing tracheostomy changes by herself. She does have a backup smaller trach in case she runs into difficulties. 03/09/2022 the patient is here for a pulmonary follow-up visit. Since we last spoke the patient has been doing well from a respiratory status. She has been changing her tracheostomy every month without any difficulties. denies any tenderness over the stoma site and also denies any significant secretions. She has not had any recent infections. She have an appointment soon with her ENT doctor. She continues to have her nebulized therapy. She does need a rescue inhaler for her to carry. I will provide her Combivent to the pharmacy. In addition to that she will get a flu shot. 11/11/2022 the patient is here for sick visit. She was exposed to a sick contact. Her daughter was sick with a cold last week. Now she started developing worsening cough. When she starts coughing she loses her breath. She has a hard time breathing. Last night she woke up out of a sound sleep with significant shortness of breath. She has been using her nebulizer. She denies any fevers or chills. Her cough for the most part is dry although at times she does bring up some mucus. When she does bring up the mucus is typically greenish or grayish in color. She has had history of Pseudomonas. No significant hypoxia at this time. Her respiratory exam is relatively normal. Her symptoms appear to be more consistent with croup. Likely the tracheitis has resulted in more difficulty breathing through the trach. She is keeping the trach open for better airway passage. Will go ahead and placed on Decadron for taper in addition to that the coin 4 history of Pseudomonas. She can also try the benzo nights to see if this provides her with some relief. If her symptoms worsen she will need to call for it in the evaluation of go to the ER. 02/12/2023 the patient is here for a pulmonary follow-up visit. Overall the patient has been doing well. Her new tracheostomy appears to be working well. Although she is been having some difficulties getting supplies the [employer]. They did give her a call and let her know that everything should be all set now. If she runs into any difficulty she will call back and we can sort out with the [employer]. She has not had any recent infections. The last time she was treated was back over the summer. Secretions are stable. She is tolerating her PMV. The patient is back to going for OT and PT therapy. She is noticed a slight worsening of her upper extremity motor function. She continues use the oxygen at nighttime with good effect. The oxygen therapy has been affecting beneficial. 05/04/2023 the patient is here for sick visit. She has been sick now for more than a week. She started developing some chest tightness and cough. The cough is moderate to severe. She has a hard time sleeping. She has been suctioning some clear thick sticky phlegm. Denies any hemoptysis or colored sputum. She also has some heaviness in the chest and some chest pain. Positive sick contacts. She did test negative for the COVID. Since she has been more than wakes sick I will not swab her for any other organisms. She did have a chest x-ray which I personally reviewed. It appears that she does have patchy opacities on the right hemithorax. This is suggestive of pneumonia. Therefore go ahead and treat her with some antibiotics and also course of Decadron. She is allergic to penicillin. If the patient is no better she will call the office for an earlier assessment. 08/06/2023 the patient is here for pulmonary follow-up visit. The patient overall has been better. Her tracheostomy is in good placement. She misplaced her Passy Amory valve so she is using a ingredient scaler helper. A direct capsule hard for her to breathe. I did have a PMV available and I did provide her 1. She also should be able to get some from her [employer]. The trach changes have been happening without any difficulties. The patient did follow-up with Neurology and will benefit from physical therapy. In addition to that she is using the oxygen for sleep. He was seen therapy has been affecting beneficial. The patient does not have any further complaints at this time. 04/20/2024 the patient is here for a pulmonary follow-up visit. Fortunately she had been sick for the last 4 days. She started with a sore throat and not developing worsening cough shortness of breath chest tightness. Moderate severity. She was started on going to the ER. Denies any fevers or chills. She did not get tested for COVID. We did do a swab in the office but was negative for RSV flu and also COVID. She did have some evidence of stridor in the office. She does have vocal cord paralysis. She does have a trach in per the most part keeping the valve off to able to breathe better. The patient did receive treatment with Xopenex x2. Also had to receive Solu-Medrol. She is going to start antibiotics and Decadron home. If the patient does not improve she will call for an earlier assessment of go to the ER. 06/14/2024 the patient is here for a sick visit. Her daughter had influenza a and B and she also developed a URI viral syndrome. Subsequently after that she started developing cough and shortness of breath. Then she started developing some hemoptysis. She did bring some pictures with bright red blood but lately he has been getting a little bit mixed with sputum and some clots. She had an x-ray which I personally reviewed. Slight haziness over the right base suggesting a bronchopneumonia. She also has evidence of bronchitis. Likely a component of tracheitis. Will go ahead and start her on Augmentin oxygen doxycycline to cover her for community-acquired pneumonia postviral. And at this time the patient will also get blood work. She did have a D-dimer that was negative so therefore we have to worry about blood clots. She does take estrogen hormonal replacement therapy for control. I advised her to come off it. The patient will continue the antibiotics. If she is no better she will call. If the bleeding gets worse we may have to do a bronchoscopy just to clear all the clots and to assess the area of bleeding. The CT scan of the chest may be also warranted but will see how she responds to the antibiotics. 08/22/2024 the patient is here for pulmonary follow-up visit. She does feel like she is getting more chest congestion. Difficult to clear his secretions. Coughing more regularly. She did have a Acapella valve that she is using the past with minimal improvement. It may be an old 1 and will go ahead and replace it. Although I do believe that percussion vest will be more effective treating her neuromuscular disease. Will go ahead and request 1. Unfortunately she did have a injury to her shoulder and she is having that evaluated. Some of the pain does radiate to the chest. Explained to her that that the percussion vest may cause some discomfort because of that we have to see. In the meantime the patient did have a chest x-ray back in June which we personally reviewed without any acute disease she has a chronic tracheostomy. Although she does feel some discomfort in the cough is worse so therefore will request a CT scan to see if there is any significant atelectasis mucus plugging or any other pathology. Will try to get a sputum as well. If were not able to get a sputum independent on the CAT scan we can also consider bronchoscopy she does change her tracheostomy regularly and she is tolerating her PMV. She did follow-up in [place] for her neuromuscular disease which is very happy about. 10/19/2024 the patient is here for hospital follow-up visit. She had an acute respiratory distress event at home and she did call the ambulance she was shaking to [facility]. During the ambulance ride she was provided suction with some mucus plugs. She was also given IV steroids and neb treatments. She was stabilized and was transferred to the hospital where she was admitted briefly. X-ray demonstrated a slight right-sided opacity suggesting pneumonia. She was placed on doxycycline and also a cephalosporin and the patient has been feeling little better. Although she still congested and feels chest tightness. She is having hard time wearing the Passy Aaliyah valve. She does have wheezing on examination. Denies any obvious aspiration. The patient will go ahead and complete the antibiotics. Will give her some Solu-Medrol and then she can start Decadron taper. The patient also may benefit from a bronchoscopy. Once she is does feel better she can always call and we can schedule 1 to assess her airways and provide mucus clearance them therapeutic cleaning of the airways. The patient also will continue her respiratory therapy with the oxygen at nighttime. She does not need an HME and she also needs to use her inner cannulas to minimize obstructions of the tracheostomy. The patient will continue to follow closely. Will talk about after the bronchoscopy. REPLACED BY [facility] Medical History (Updated 06/13/24 @ 15:27 by Rashaun Irwin MD) Hemoptysis Bronchopneumonia Dysphagia GERD (gastroesophageal reflux disease) Hypoxia Tachycardia Chronic respiratory failure Chest pain Pneumonia delivery due to maternal disorder, delivered, [facility] 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 Social History Household Members: Spouse and Children Housing: House Do you presently have visiting nurse or other home services: No Alcohol intake: never Patient Tobacco Use Status: Never used Tobacco service: No Current occupational status: disabled Current occupation: right hand dominant Review of Systems Const Reports difficulty sleeping, Reports fatigue, Denies night sweats, Reports weakness and Reports weight loss ENT Denies change in voice, Denies lip swelling, Denies mouth pain, Denies nasal congestion, Denies nasal discharge and Denies tongue swelling Card Denies chest pain, Reports dyspnea and Reports dyspnea on exertion Resp Reports chest congestion, Reports cough, Denies pain on inspiration, Denies pain with cough, Reports dyspnea, Reports dyspnea on exertion and Reports wheezing GI Denies abdominal pain Musc Reports as per HPI Neuro Reports as per HPI, Denies Neuro-related abnormal movements and Reports weakness Psych Denies no additional complaints Endo Reports fatigue Ryan/Lymph Denies easy bleeding and Denies lymphadenopathy Aller/Immun Denies lip swelling, Denies tongue swelling and Reports wheezing Physical Exam Vital Signs: Last Vital Signs Pulse 91 10/19/24 11:17 BP 110/70 10/19/24 11:17 Pulse Ox 97 10/19/24 11:17 Oxygen Delivery Method Room Air 10/19/24 11:17 BMI result Body Mass Index 40.7 Const General: alert and tired appearing HEENT Head: Yes normocephalic Neck Neck: Yes normal visual inspection, Yes full ROM, Yes no lymphadenopathy and Yes tracheostomy present Chest Chest palpation & inspection: normal inspection of the chest Resp Effort & Inspection: normal respiratory effort, no stridor and prolonged expiratory phase Auscultation: no rhonchi, wheezes and diminished lung sounds Cardio Rate: regular rate Rhythm: regular rhythm Heart sounds: S1 normal heart sound present and S2 normal heart sound present GI Palpation (GI): Soft to palpation and nontender Auscultation: normal bowel sounds Skin General skin exam: other (ecchymosis) Office Meds methylprednisolone sod suc(PF) 125 mg/2 mL solution for injection Performing Provider: Rashaun Irwin MD Performing Location: [facility] Pulmonology [facility] Administered by: Hamida Miller LPN on 10/19/24 11:49 Dose Route Admin Location Dispensed Lot Number Expiration Date ND Shirt Turner 125 mg IM R buttocks 1 ea [id number] 07/31/25 0148-1442-80 [employer] Total Dispensed Waste 1 ea 0 % Assessment & Plan Assessment & Plan (1) 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 Category: Medical (2) Asthma: Code(s): J45.909 - Unspecified asthma, uncomplicated Category: Medical Qualifiers: Asthma severity: moderate Asthma persistence: persistent Asthma complication type: with acute exacerbation Qualified Code(s): J45.41 - Moderate persistent asthma with (acute) exacerbation (3) Hypoxia: Code(s): R09.02 - Hypoxemia Category: Medical (4) Tracheostomy in place: Code(s): Z93.0 - Tracheostomy status Category: Medical (5) GERD (gastroesophageal reflux disease): Code(s): K21.9 - Gastro-esophageal reflux disease without esophagitis Category: Medical Qualifiers: Esophagitis presence: without esophagitis Qualified Code(s): K21.9 - Gastro-esophageal reflux disease without esophagitis (6) Chest pain: Code(s): R07.9 - Chest pain, unspecified Category: Medical Qualifiers: Chest pain type: chest pain on breathing Qualified Code(s): R07.1 - Chest pain on breathing (7) Bronchopneumonia: Code(s): J18.0 - Bronchopneumonia, unspecified organism Category: Medical Plan solumedrol->Decadron taper complete Abx Consider Bronchoscopy, will call to schedule continue CPT with acapella valve, will request percussion vest as she is failing acapella valve Trach [id number] Benzonates as needed Continue oxygen with sleep. PPI for reflux disease should also sleep elevated Xopenex as needed Hypertonic saline for CPT while on the vest F/U 3-4 months Orders: Orders AMB Methylprednisolone Sod Succ Injection Today J45.41 - Moderate persistent asthma with (acute) exacerbation Medications: Changed From dexamethasone orally daily; Take 1 tab BID x 5 days, then 1 tab daily x 5 days 10 days 15 tabs 0RF To dexamethasone orally daily; Take 2 tab BID x 5 days, then 1 tab BID x 5 days, then 1 tab daily x 5 days 35 tabs 0RF 10 days Coding Level of Care Code Est Pt Level 4 (36651) Complex EM visit Add On G2211 Diagnoses Charcot Shantell Tooth muscular atrophy G60.0 Moderate persistent asthma with acute exacerbation J45.41 Asthma severity: moderate Asthma persistence: persistent Asthma complication type: with acute exacerbation Hypoxia R09.[address] Z93.0 Gastroesophageal reflux disease without esophagitis K21.9 Esophagitis presence: without esophagitis Chest pain on breathing R07.1 Chest pain type: chest pain on breathing Bronchopneumonia J18.0 Time Spent (min) 18
[2024-10-19 11:17] VITALS: BP 110/70; PULSE 91; O2SAT 97; BMI 40.7
== END 2024-10-19 13:22 | disposition home or self-care (01) ==
PROVIDERS: PCP Internal Medicine; Visit Provider Hospitalist
DX: G60.0 Hereditary motor and sensory neuropathy (principal); J45.41 Moderate persistent asthma with (acute) exacerbation; R09.02 Hypoxemia; Z93.0 Tracheostomy status; K21.9 Gastro-esophageal reflux disease without esophagitis; R07.1 Chest pain on breathing; J18.0 Bronchopneumonia, unspecified organism
CPT/HCPCS: 99214; G2211

== ENCOUNTER → 2024-10-19 11:15 | Outpatient (BNVA) | payer OTHER, SELFPAY | PROVIDERS: PCP Internal Medicine; Visit Provider Hospitalist | DX: G60.0 Hereditary motor and sensory neuropathy (principal); J45.909 Unspecified asthma, uncomplicated; R09.02 Hypoxemia; J18.0 Bronchopneumonia, unspecified organism; Z93.0 Tracheostomy status | CPT/HCPCS: 96372; 99212; J2919 ==

== ENCOUNTER 2024-11-18 10:31 | Inpatient (IN) | payer OTHER, SELFPAY ==
[2024-11-18] VITALS (8 sets, daily range): BP systolic 100–121; BP diastolic 51–88; PULSE 98–114; RESP 17–25; TEMP 36.2–37; O2SAT 93–97; BMI 41.2; BMI 42.9
--- NOTE | ~2024-11-18 | CT_ITS ---
CLINICAL HISTORY: Hypoxic, SOB CT ANGIOGRAPHY CHEST WITH CONTRAST. 3D POSTPROCESSING. Comparison: CT/FL/SR - CT CHEST WO IV CON - 09/26/24 07:40 EDT Findings: The heart is normal size. RV/LV ratio is normal. No thoracic aortic aneurysm or dissection. No pulmonary artery filling defects. The visualized thyroid and mediastinum are unremarkable. Again seen is a tracheotomy tube. There is a prominent subcarinal soft tissue density that could represent adenopathy. There are confluent airspace opacities in the right middle lobe with air bronchograms. There are multiple irregular airspace opacities in the lingula and bilateral lower lobes. No pleural effusion or pneumothorax. The visualized upper abdomen is unremarkable. The bones are intact. IMPRESSION: 1. No definite pulmonary embolus. 2. Right middle lobe pneumonia. 3. Multifocal atelectasis and/or infiltrates in the lingula and bilateral lower lobes. Aspiration is included in the differential. 4. Probable reactive mediastinal adenopathy. This document has been electronically signed by: Whitley Sultana DO on 11/18/2024 15:18:18
--- NOTE | ~2024-11-18 | FL_ITS ---
EXAMINATION: Modified Barium Swallow CLINICAL INFORMATION: Dysphagia COMPARISON: None TECHNIQUE: Modified barium swallow was performed under lateral fluoroscopy with patient in standing position. Barium mixed with solids and liquids of different consistencies was administered by the speech pathologist. Examination was recorded in the fluoroscopy suite. FINDINGS: There was no evidence of laryngeal penetration, or subglottic aspiration on any consistency. FLUOROSCOPY TIME: 59 seconds Number of Spot Images: N/A DOSE AREA PRODUCT: 630.3 uGy-m2 (microgray-meter squared) FL/FL Modified Barium Swallow IMPRESSION: No evidence of laryngeal penetration or subglottic aspiration. Refer to the speech therapy report to follow for further detail. Electronically signed by: Felipe Oquendo MD 11/20/2024 03:08 PM EDT
--- NOTE | 2024-11-18 11:15 | PC.RT ---
Pt in ED for SOB and pain. Pt has a trach and has had it for 18 years due to vocal cord paralysis. 6.[address] Pt [address] Irwin at [facility] pulmonary. Pt is currently on 3L trach mask, pt states this is her normal for night time. Pt l/s clear w/ exp wheezing, was given tx per protocol. Pt walked to bathroom w/ O2 and became short of breath, pt was wheeled back to room and assisted into bed, pt feels better and is calm in bed at this time.
--- NOTE | 2024-11-18 11:43 | PC.RT ---
Pt tracheally suctioned. Small amount of thick yellow/white secretions. Spare trach 6.5 Shiley cuffed at bedside.
--- NOTE | 2024-11-18 11:53 | ECG_ITS ---
Test Reason : sob Blood Pressure : */* mmHG Vent. Rate : 109 BPM Atrial Rate : 109 BPM P-R Int : 146 ms QRS Dur : 108 ms QT Int : 332 ms P-R-T Axes : 29 0 7 degrees QTcB Int : 447 ms Sinus tachycardia Cannot rule out Anterior infarct , age undetermined Nonspecific ST and T wave abnormality Abnormal ECG When compared with ECG of 14-Mar-2020 12:22, No significant change was found Referred By: Radha Beverly Electronically Signed By: YAMILET PATHAK
--- NOTE | 2024-11-18 12:14 | ED.GENADULT ---
HPI - General Adult General Chief complaint: Dyspnea Stated complaint: TRACH SITE PAIN Time Seen by Provider: 11/18/24 11:21 Source: patient Mode of arrival: EMS Limitations: no limitations History of Present Illness ED Provider: Rush Garcia PA-C HPI narrative: 34-year-old female with medical history of asthma, Sjcyxwu-Knvck-Twvqc muscular atrophy, tracheostomy, rebound pneumonia, GERD, presents to the ED by ambulance today due to 2 days of progressively worsening right-sided chest tightness exacerbated with deep inspiration, shortness of breath, and increased green colored secretions coming from trach. Patient states these symptoms are associated with chills at night. Patient reports 1 month ago was evaluated at [facility] and diagnosed with pneumonia treated with doxy and Augmentin. Patient had follow up 1 week later with [facility] multisensor intelligence officer and treated with Solu-Medrol to Decadron taper. Patient states she completed her course of antibiotics and steroids and her symptoms had resolved. MD complaint: chest tightness, SOB Related Data Home Medications ?Medication ?Instructions ?Recorded ?Confirmed Oxygen Home Use 04/04/21 05/20/21 nebulizers 11/11/22 doxycycline hyclate 100 mg capsule 100 mg PO BID 10/19/24 Previous Rx's ?Medication ?Instructions ?Recorded levalbuterol HCl 1.25 mg/3 mL 1.25 mg (3 mL) inhalation BID 30 08/22/24 solution for nebulization days #180 mL sodium chloride 3 % for 4 ml inhalation BID 30 days #240 mL 08/22/24 nebulization mupirocin 2 % topical ointment 1 appl topical TID 7 days #22 grams 09/08/24 sulfamethoxazole 800 1 tab PO BID 21 days #42 tabs 09/08/24 mg-trimethoprim 160 mg tablet (Bactrim DS) dexamethasone 4 mg tablet See Rx Instructions PO DAILY 10 10/19/24 days #35 tabs Allergies Allergy/AdvReac Type Severity Reaction Status Date / Time prednisone (PREDNISONE) Allergy Severe Difficulty Verified 11/18/24 10:42 Breathing Review of Systems Review of Systems: CONST: Negative for fever, body aches. POS chills HENT: Negative for neck pain/stiffness, headache, congestion, sore throat, swelling. EYES: Negative for discharge/pain or vision changes. RESP: POS chest congestion, increased secretions, SOB CV: Negative chest pain, difficulty breathing, palpitations. POS R sided chest tightness ABD: Negative pain, nausea, vomiting. : Negative increase frequency, dysuria, blood in urine or stool. MUSC: Negative for muscle aches, edema. SKIN: Negative rash, lesions/sores. NEURO: Negative headache, dizziness, weakness. Yes all other systems are reviewed and are negative PMFSH Past Medical History Attestation statement: The following information was validated with the patient. 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 Social History Social History Household Members: Spouse and Children Housing: House Do you presently have visiting nurse or other home services: No Alcohol intake: never Patient Tobacco Use Status: Never used Tobacco Smoked in Last 30 Days: No Use of substances other than those prescribed or required for medical reasons: No Advance Directives: Yes Advance Directives Information Provided: No Advance Directives on File: No Do you have a plan to hurt others: No Plan Patient : No service: No Current occupational status: disabled Current occupation: right hand dominant Physical Exam ED Exam Exam: GENERAL APPEARANCE: ?AxOx4, generally well-appearing, no acute distress. HEENT: ?NC, AT. MMM. EOMI, clear conjunctiva, oropharynx clear. NECK: ?Supple without lymphadenopathy.? No stiffness or restricted ROM. HEART:? Tachycardic ate and regular rhythm, normal S1/S2, no m/r/g LUNGS: B/L expiratory wheeze, diminished lung sounds at bilateral bases, no crackles or rales. ABDOMEN: ?Soft, nontender, nondistended with good bowel sounds heard. EXTREMITIES: ?Without cyanosis, clubbing or edema. NEUROLOGICAL: ?Grossly nonfocal. Alert and oriented, moving all 4 extremities. Observed to ambulate with normal gait. Skin: ?Warm and dry without any rash. Vital Signs: Vital Signs - 24 hr 11/18/24 10:41 11/18/24 10:47 11/18/24 11:17 Temperature 98.6 F 98.6 F Pulse Rate 114 H 114 H 114 H Respiratory Rate 25 H 25 H 25 H Blood Pressure 105/64 105/64 Pulse Oximetry 94 94 Oxygen Delivery Method Trach Collar Trach Collar Oxygen Flow Rate 3 11/18/24 14:00 Temperature 98.6 F Pulse Rate 99 Respiratory Rate 20 Blood Pressure 113/88 Pulse Oximetry 95 Oxygen Delivery Method Trach Collar Oxygen Flow Rate 3 BMI result Body Mass Index 41.2 Medications Administered Discontinued Medications Generic Name Dose Route Start Last Admin Trade Name Freq PRN Reason Stop Dose Admin Lactated Ringer's 3,265.86 mls @ 3,265.86 mls/hr 11/18/24 11:55 11/18/24 13:16 Lr 30 ml/kg infuse over 1 hr (3265.86 ml) 11/18/24 12:54 3,265.86 mls/hr IV Administration .Q1H ONE Piperacillin Sod/Tazobactam 50 mls @ 100 mls/hr 11/18/24 12:04 11/18/24 13:43 Sod 3.375 gm/ Sodium Chloride IV 11/18/24 12:33 Infused ONCE ONE Infusion Vancomycin HCl 2,000 mg in 500 mls @ 250 mls/hr 11/18/24 12:04 11/18/24 13:43 Vancomycin/Ns IV 11/18/24 14:03 250 mls/hr ONCE ONE Administration Acetaminophen 1,000 mg in 100 mls @ 400 mls/hr 11/18/24 12:20 11/18/24 13:43 Ofirmev IV 11/18/24 12:34 Infused ONCE ONE Infusion Iohexol 100 ml 11/18/24 14:34 11/18/24 14:34 Iohexol 350 Mg/Ml 100 Ml Infus..Btl IV 11/18/24 14:35 75 ml ONCE ONE Administration Levalbuterol HCl 2.5 mg 11/18/24 10:58 11/18/24 11:15 Levalbuterol Hcl 1.25 Mg/3 Ml Vial.Neb INHALE 11/18/24 10:59 2.5 mg ONCE ONE Administration Medical Decision Making Medical Decision Making MDM Narrative: 34-year-old female with medical history of asthma, Jmjdtre-Evrfg-Uknef muscular atrophy, tracheostomy, rebound pneumonia, GERD, presents to the ED by ambulance today due to 2 days of progressively worsening right-sided chest tightness exacerbated with deep inspiration, shortness of breath, and increased green colored secretions coming from trach. Patient states these symptoms are associated with chills at night. Patient reports 1 month ago was evaluated at [facility] and diagnosed with pneumonia treated with doxy and Augmentin. Patient had follow up 1 week later with [facility] multisensor intelligence officer and treated with Solu-Medrol to Decadron taper. Patient states she completed her course of antibiotics and steroids and her symptoms had resolved. Vital signs reveal BP of 105/64, tachycardic at 114 beats per minute, tachypneic at 25 breaths per minute, afebrile at 98.6 oral temperature, 94% on room air, patient now on 3 L per respiratory therapy, receiving levalbuterol treatment instead of duoneb due to tachycardia. On physical exam patient with mild increased work of breathing, expiratory wheezing, diminished lung sounds at bilateral bases, no rales or crackles heard. Cardiac exam reveals tachycardic rate with regular rhythm, no murmurs/rubs/gallops. Abdomen nondistended nontender, no lower extremity edema. EKG without ST depression/elevation, initial troponin undetectable- ACS less likely Labs reveal leukocytosis at 11, CRP, ESR- 5.84/49. Viral serology negative, UA without evidence of infection. Patient is currently satting at 95% on 3 L oxygen Course 13:16- Patient started on 30 mg/kg fluid bolus IV fluids due to tachycardia, tachypnea and suspected pneumonia. Patient afebrile, lactic acid within range at 0.9, 3.375 g Zosyn, 2000 mg vancomycin for empirical coverage of suspected pneumonia. Patient requesting Tylenol for mild headache. Will give 1 g IV Tylenol. 15:32- CTA chest PE protocol without PE. Imaging reveals right middle lobe pneumonia, with multifocal atelectasis/infiltrates in the lingula and bilateral lower lobes, probable reactive mediastinal adenopathy. Patient headache improved after medicating with 1 g IV Tylenol. I reached out to hospitalist Dr. Gonsales for admission due to PNA with hypoxia. Differential Diagnosis Differential Diagnoses: The differential diagnosis associated with the presentation includes PE Pneumonia ACS Viral illness Tracheitis Bronchitis Admission/Observation Consideration of admission/observation: Escalation of care including admission/observation considered Lab Data MDM Lab Attestation statement: I reviewed the patient's lab results. 11/18/24 12:37 11/18/24 12:59 Labs: Lab Results 11/18/24 11/18/24 11/18/24 Range/Units 12:37 12:59 15:36 WBC 11.0 H (4.8-10.8) X10*3/uL RBC 4.23 (4.20-5.50) X10*6/uL Hgb 11.7 L (12.0-16.0) g/dl Hct 35.4 L (37.0-47.0) % MCV 83.7 (80.0-98.0) fL MCH 27.7 (27.0-33.0) pg MCHC 33.1 (31.0-35.0) g/dl RDW 14.9 (11.0-16.0) % Plt Count 188 (160-400) X10*3/uL MPV 9.9 (9.4-12.3) fL Immature Gran % (Auto) 0.3 (0.0-0.4) % Neut % (Auto) 86.5 H (45-73) % Lymph % (Auto) 6.8 L (20-40) % [place] % (Auto) 6.0 (2-11) % Eos % (Auto) 0.1 (0-4) % Baso % (Auto) 0.3 (0-2) % Lymph # (Auto) 0.8 L (1.2-4.9) X10*3/uL [place] # (Auto) 0.7 (0.1-1.2) X10*3/uL Eos # (Auto) 0.0 (0.0-0.4) X10*3/uL Baso # (Auto) 0.0 (0.0-0.2) X10*3/uL Abs Immat Gran (auto) 0.03 (0.00-0.03) X10*3/uL Absolute Neuts (auto) 9.5 H (2.0-8.3) x10*3/uL Absolute Nucleated RBC 0.000 (0.0-0.012) X10*3/uL Nucleated RBC % (auto) 0.0 (0.0-0.2) /100WBC ESR 49 H (0-20) MM/HR Sodium 141 (135-145) mmol/L Potassium 3.9 (3.3-5.1) mmol/L Chloride 106 (96-108) mmol/L Carbon Dioxide 27 (22-29) mmol/L Anion Gap 12 (12-20) BUN 11 (9-16) mg/dL Creatinine 0.40 L (0.5-1.4) mg/dL Estim Creat Clear Calc 241.1 Estimated GFR > 60 Random Glucose 96 (60-115) mg/dL Lactic Acid 0.9 (0.5-2.0) mmol/L Calcium 9.0 (8.4-10.2) mg/dL Magnesium 1.7 (1.6-2.6) mg/dL Total Bilirubin 0.3 (0.0-1.0) mg/dL AST 28 (5-31) U/L ALT 15 (0-31) U/L Alkaline Phosphatase 63 (39-117) U/L Troponin I High Sens < 2.7 (<3.5-17.0) ng/L C-Reactive Protein 5.84 H (< or = 0.50) mg/dL Total Protein 7.1 (6.5-8.0) g/dL Albumin 4.0 (3.5-5.0) g/dL Beta HCG, Quant < 2 mIU/mL Urine Color Yellow Urine Appearance Clear Urine pH 7.0 (5.0-9.0) Ur Specific [place] >= 1.030 H (1.005-1.025) Urine Protein Trace (Neg-Trace) mg/dL Urine Glucose (UA) Negative (Negative) mg/dL Urine Ketones Negative (Negative) mg/dL Urine Blood Small (1+) H (Negative) Urine Nitrite Negative (Negative) Ur Leukocyte Esterase Negative (Negative) Influenza Type A (PCR) NEGATIVE (Negative) Influenza Type B (PCR) NEGATIVE (Negative) RSV RNA Qual (PCR) NEGATIVE (Negative) SARS-CoV-2 RNA (RT-PCR) NEGATIVE (Negative) Independent Interpretation I performed an independent interpretation of an: EKG Interpretation: I independently interpreted the EKG: Sinus tachycardia, without ST elevation/depression Vent. Rate : 109 BPM Atrial Rate : 109 BPM P-R Int : 146 ms QRS Dur : 108 ms QT Int : 332 ms P-R-T Axes : 29 0 7 degrees QTcB Int : 447 ms Sinus tachycardia Cannot rule out Anterior infarct , age undetermined Abnormal ECG When compared with ECG of 14-Mar-2020 12:22, No significant change was found Radiology Impression Discussion of test interpretation with radiology: I have reviewed the radiologist's reading. Radiologist Impression: CTA chest PE Findings: The heart is normal size. RV/LV ratio is normal. No thoracic aortic aneurysm or dissection. No pulmonary artery filling defects. The visualized thyroid and mediastinum are unremarkable. Again seen is a tracheotomy tube. There is a prominent subcarinal soft tissue density that could represent adenopathy. There are confluent airspace opacities in the right middle lobe with air bronchograms. There are multiple irregular airspace opacities in the lingula and bilateral lower lobes. No pleural effusion or pneumothorax. The visualized upper abdomen is unremarkable. The bones are intact. IMPRESSION: 1. No definite pulmonary embolus. 2. Right middle lobe pneumonia. 3. Multifocal atelectasis and/or infiltrates in the lingula and bilateral lower lobes. Aspiration is included in the differential. 4. Probable reactive mediastinal adenopathy. This document has been electronically signed by: Whitley Sultana DO on 11/18/2024 15:18:18 Dictated By: Whitley Sultana MD Signed By: <Electronically signed by Whitley Sultana MD in OV> 11/18/24 1519 External Record Review External record reviewed: Inpatient record, Office record and Outpatient record Chronic Conditions Patient?s care impacted by: Other (Asthma) Critical Care Time Critical Care Time Critical Care Time: Yes Total Critical Care Time: 38 Attestation: I personally provided a total of 38 minutes of critical care time for this patient. This time reflects direct evaluation, management and coordination of care for conditions including IV antibiotics, fluid, continuous monitoring. And excludes any separately billable procedures Discharge Plan Discharge Patient Disposition: Admitted As Inpatient Print Language: Frisian
[2024-11-18 12:46] LABS: MANUAL DIFF FLAG NO
[2024-11-18 13:05] LABS: Hematocrit 35.4 % (37.0-47.0); Hemoglobin 11.7 g/dl (12.0-16.0); Imm Gran Abs Auto 0.03 X10*3/uL (0.00-0.03); Imm Gran Pct Auto 0.3 % (0.0-0.4); Lymphocytes Absolute Auto 0.8 X10*3/uL (1.2-4.9); Mean Corpuscular HGB Conc 33.1 g/dl (31.0-35.0); Mean Corpuscular Hemoglobin 27.7 pg (27.0-33.0); Mean Corpuscular Volume 83.7 fL (80.0-98.0); NRBC Abs Auto 0.000 X10*3/uL (0.0-0.012); NRBC Pct Auto 0.0 /100WBC (0.0-0.2); Platelet Count 188 X10*3/uL (160-400); Red Blood Count 4.23 X10*6/uL (4.20-5.50); White Blood Count 11.0 X10*3/uL (4.8-10.8)
[2024-11-18 13:11] LABS: Troponin-I High Sensitivity < 2.7 ng/L (<3.5-17.0)
[2024-11-18 13:23] LABS: Resp Syncy Virus RNA Qual PCR NEGATIVE (Negative); SARS COV2 PCR INHOUSE NEGATIVE (Negative)
--- NOTE | 2024-11-18 13:24 | PC.NURSE ---
delay in blood cultures after mutliple blood draw attempts made by this RN and Tech, first set was collected by this RN. Another Tech was able to obtain 2nd set of blood cultures. 20G RAc placed currently running LR
[2024-11-18 13:31] LABS: Alanine Aminotransferase 15 U/L (0-31); Albumin Level 4.0 g/dL (3.5-5.0); Alkaline Phosphatase 63 U/L (39-117); Anion Gap 12 (12-20); Aspartate Amino Transferase 28 U/L (5-31); Blood Urea Nitrogen 11 mg/dL (9-16); Calcium 9.0 mg/dL (8.4-10.2); Carbon Dioxide 27 mmol/L (22-29); Chloride 106 mmol/L (96-108); Creatinine Clr Calc Pharmacy 241.1; Estimated Glomerular Filt Rate > 60; Magnesium 1.7 mg/dL (1.6-2.6); Potassium 3.9 mmol/L (3.3-5.1); Sodium 141 mmol/L (135-145); Total Protein 7.1 g/dL (6.5-8.0)
[2024-11-18] MEDS: vancomycin/NS 2,000 MG/500 ML PLAST..BAG 250 MG IV (13:43)
[2024-11-18] MEDS: iohexoL 350 MG/ML 100 ML INFUS..BTL IV (14:34)
[2024-11-18 15:47] LABS: Appearance Urine Clear; Glucose Urine UA Negative (Negative); PH 7.0 (5.0-9.0); Specific Gravity - Urine >= 1.030 (1.005-1.025); UMIC TRIGGER UACC YES
--- NOTE | 2024-11-18 15:54 | PC.NURSE ---
CHest CTA = right middle lobe PNA. Patient remains on O2 3L trach mask. Denies SOB, pain.
--- NOTE | 2024-11-18 16:36 | PHA.PROG ---
Admission Date/Time: November 18, 2024 16:23 Indication: RESPIRATORY INFECTION Weight in k.862 kg Adjusted body weight in Kg: [place] body weight in Kg: Obesity Dosing Indication % IBW: Serum Creatinine - Last 168 Hours 11/18/24 12:59 Creatinine 0.40 L Estimated CrCl and GFR - Last 168 Hours 11/18/24 12:59 Estim Creat Clear Calc 241.1 Estimated GFR > 60 Vancomycin Loading Dose: 2000 Current Vancomycin Dosing Regimen:1250 MG Q 8 HOURS Vancomycin Monitoring using AUC goal of 400 - 600 range with trough as surrogate marker: Date and Time for next Vancomycin Level to be drawn: 11/19/24 AT 11 AM Pharmacist Comments on Vancomycin Plan: Vancomycin dosing will take advantage of [employer] as a clinical decision support tool that uses Bayesian modeling to calculate individual patient's pharmacokinetic parameters and forecast the patient's drug concentration time course with the target goal AUC 24 range of 400 - 600 mg/L/hr.
[2024-11-18 17:00] LABS: Procalcitonin 0.04 ng/mL
--- NOTE | 2024-11-18 17:09 | PHA.MEDREC ---
Addendum entered by Negin Moreau RPh 11/18/24 17:11: REVIEWED BY PHARMACIST Original Note: Pharmacy Consult ? Medication Reconciliation Pharmacy has completed the medication reconciliation. Spoke with patient to confirm.
--- NOTE | 2024-11-18 17:14 | P.HPHOSP_ITS ---
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 Has been coughing up green sputum since. Moving makes her extremely short of breath. Daughter is sick with a cold. No vomiting. No choking and and she is careful to eat very slowly. She was recently seen in [place] [facility] [place]15[place]24 and treated for pneumonia with doxycycline and amoxicillin-clavulanate. She saw her pulmonlogist, Dr Irwin, on 10/19/24 and was given a steroid taper. She recovered fully from that illness. She called EMS and was found to have SaO2 82% so was placed on 3L O2 and is currently saturating 91%. She was given levalbuterol, piperacillin-tazobactam and vancomycin. CTA of the chest showed RML PNA, infiltrates in the lingula and bilateral lower lobes, and mediastinal adenopathy. 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 Social History Household Members: Spouse and Children Housing: House Do you presently have visiting nurse or other home services: No Alcohol intake: never Patient Tobacco Use Status: Never used Tobacco Smoked in Last 30 Days: No Use of substances other than those prescribed or required for medical reasons: No Advance Directives: Yes Advance Directives Information Provided: No Advance Directives on File: No Do you have a plan to hurt others: No Plan Patient : No service: No Current occupational status: disabled Current occupation: right hand dominant Meds Allergies Allergy/AdvReac Type Severity Reaction Status Date / Time prednisone (PREDNISONE) Allergy Severe Difficulty Verified 11/18/24 10:42 Breathing Active Medications: Current Medications Acetaminophen (Acetaminophen 325 Mg Tablet) 650 mg PO Q6H PRN PRN Reason: Pain, Mild 1-3,fever,headache Calcium Carbonate (Calcium Carbonate 750 Mg Tab.Chew) 750 mg PO Q4H PRN PRN Reason: Heartburn Dexamethasone Sodium Phosphate (Dexamethasone Sod Phosphate 4 Mg/Ml Vial) 6 mg IVPUSH DAILY [facility] Piperacillin Sod/Tazobactam (Sod 3.375 gm/ Sodium Chloride) 50 mls @ 100 mls/hr IV Q6H [facility] Vancomycin HCl 1,250 mg/ (Sodium Chloride) 250 mls @ 166.667 mls/hr IV Q8H [facility] Levalbuterol HCl (Levalbuterol Hcl 1.25 Mg/3 Ml Vial.Neb) 1.25 mg INHALE Q2H PRN PRN Reason: shortness of breath/wheeze Magnesium Hydroxide (Milk Of Magnesia 30 Ml Oral.Susp) 30 ml PO DAILY PRN PRN Reason: Constipation Melatonin (Melatonin 3 Mg Tablet) 6 mg PO BEDTIME PRN PRN Reason: Insomnia Ondansetron HCl (Ondansetron Hcl 4 Mg/2 Ml Vial) 4 mg IVPUSH Q8H PRN PRN Reason: Nausea and Vomiting Pharmacy Consult (Consult Rx Vancomycin Dosing) 1 each MISCELLANE DAILY PRN PRN Reason: Consult order Sodium Chloride (0.9 % Sodium Chloride Flush 3 Ml Syringe) 3 [facility] Home Medications ?Medication ?Instructions ?Recorded ?Confirmed ?Last Taken ?Type Oxygen Home Use 04/04/21 05/20/21 Unknown H istory nebulizers 11/11/22 Unknown History Physical Exam 2 Vital Signs and Narrative: Vital Signs: Last Vital Signs Temp 98.6 F 11/18/24 14:00 Pulse 98 11/18/24 16:53 Resp 18 11/18/24 16:53 BP 114/51 L 11/18/24 16:53 Pulse Ox 93 11/18/24 16:53 O2 Del Method Trach Collar 11/18/24 16:53 O2 Flow Rate 3 11/18/24 16:53 Oxygen Flow Rate 3 11/18/24 10:41 BMI result Body Mass Index 41.2 Gen: in no acute distress HEENT: sclera anicteric, moist mucus membranes Neck: supple, tracheostomy in place Lungs: diminished with a few crackles R base Heart: regular, tachycardic, no murmurs Abd: soft, non-tender, non-distended, obese Ext: no edema Skin: warm/well-perfused Neuro: alert and oriented x3, no focal findings Psych: appropriate affect Results Labs 11/18/24 12:37 11/18/24 12:59 Labs: Laboratory Results - last 24 hr 11/18/24 11/18/24 11/18/24 12:37 12:59 15:36 MCV 83.7 MCH 27.7 MCHC 33.1 RDW 14.9 Plt Count 188 MPV 9.9 Immature Gran % (Auto) 0.3 Neut % (Auto) 86.5 H Lymph % (Auto) 6.8 L [place] % (Auto) 6.0 Eos % (Auto) 0.1 Baso % (Auto) 0.3 Lymph # (Auto) 0.8 L [place] # (Auto) 0.7 Eos # (Auto) 0.0 Baso # (Auto) 0.0 Abs Immat Gran (auto) 0.03 Absolute Neuts (auto) 9.5 H Absolute Nucleated RBC 0.000 Nucleated RBC % (auto) 0.0 ESR 49 H Anion Gap 12 Estim Creat Clear Calc 241.1 Estimated GFR > 60 Random Glucose 96 Lactic Acid 0.9 Calcium 9.0 Magnesium 1.7 Total Bilirubin 0.3 AST 28 ALT 15 Alkaline Phosphatase 63 C-Reactive Protein 5.84 H Total Protein 7.1 Albumin 4.0 Procalcitonin 0.04 Beta HCG, Quant < 2 Urine Color Yellow Urine Appearance Clear Urine pH 7.0 Ur Specific [place] >= 1.030 H Urine Protein Trace Urine Glucose (UA) Negative Urine Ketones Negative Urine Blood Small (1+) H Urine Nitrite Negative Ur Leukocyte Esterase Negative Urine RBC >20 H Urine WBC 0-5 Ur Squamous Epith Cells 3-5 Urine Bacteria 1+ Hyaline Casts 0-2 Influenza Type A (PCR) NEGATIVE Influenza Type B (PCR) NEGATIVE RSV RNA Qual (PCR) NEGATIVE SARS-CoV-2 RNA (RT-PCR) NEGATIVE Assessment and Plan (1) Bronchopneumonia: Status: Acute Plan 34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, KIRK on nocturnal O2 2L, asthma, and PTSD presenting with exertional dyspnea, purulent cough, and chest pain that started overnight; found to be hypoxic with pneumonia, possible aspiration acute hypoxic respiratory failure due to pneumonia + asthma exacerbation - admit to telemetry, give dexamethasone + vancomycin + piperacillin-tazobactam, trend PCT, check respiratory pathogen panel/MRSA swab/urinary antigens for Legionella and pneumococcus, follow BCx, tracheostomy care, Pulm consult - supplemental O2, wean as tolerated VTE ppx - enoxaparin dispo - eventual home code status - full I anticipate that the patient will stay at least 2 midnights as an inpatient in the hospital due to the above reasons. It is neither reasonable nor safe to care for them in a less acute setting. Quality Stroke Does the patient have a stroke diagnosis?: No VTE Prior VTE?: No VTE Risk Level:: Medical - moderate - high VTE Device Contraindication: N/A - Device Ordered VTE Drug Contraindication: N/A - Med Ordered
[2024-11-18] MEDS: 0.9 % Sodium Chloride Flush 3 ML SYRINGE IVFLUSH (21:10)
[2024-11-19] VITALS (8 sets, daily range): BP systolic 101–117; BP diastolic 20–65; PULSE 78–108; RESP 18–24; TEMP 36.1–36.8; O2SAT 93–98
[2024-11-19 07:36] LABS: Creatinine Clr Calc Pharmacy 246.8; Estimated Glomerular Filt Rate > 60
[2024-11-19] MEDS: 0.9 % Sodium Chloride Flush 3 ML SYRINGE IVFLUSH (08:04)
--- NOTE | 2024-11-19 10:21 | P.PNIM_ITS ---
Subjective Subjective Date of Service: 11/19/24 Interval History: cough improved but still quite short of breath with minimal ambulation Review of Systems Review of Systems: Yes all other systems are reviewed and are negative Physical Exam 2 Vital Signs: Vital Signs: Last Vital Signs Temp 97.4 F 11/19/24 07:52 Pulse 78 11/19/24 09:50 Resp 20 11/19/24 09:50 BP 117/20 L 11/19/24 07:52 Pulse Ox 96 11/19/24 07:52 O2 Del Method Trach Collar 11/19/24 07:52 O2 Flow Rate 5 11/19/24 07:52 FiO2 50 11/19/24 03:36 Oxygen Flow Rate 3 11/18/24 10:41 BMI result Body Mass Index 42.9 Gen: in no acute distress HEENT: sclera anicteric, moist mucus membranes Neck: supple, tracheostomy Lungs: diminished, a few rhonchi on R side Heart: regular rate and rhythm, no murmurs Abd: soft, non-tender, non-distended, obese Ext: no edema Skin: warm/well-perfused Neuro: alert and oriented x3, no focal findings Psych: appropriate affect Objective Data Active Medications Acetaminophen (Acetaminophen 325 Mg Tablet) 650 mg PO Q6H PRN PRN Reason: Pain, Mild 1-3,fever,headache Last Admin: 11/19/24 07:18 Dose: 650 mg Documented By: ALEXX Calcium Carbonate (Calcium Carbonate 750 Mg Tab.Chew) 750 mg PO Q4H PRN PRN Reason: Heartburn Dexamethasone Sodium Phosphate (Dexamethasone Sod Phosphate 4 Mg/Ml Vial) 6 mg IVPUSH DAILY [facility] Last Admin: 11/19/24 08:04 Dose: 6 mg Documented By: JOHNNA Piperacillin Sod/Tazobactam (Sod 3.375 gm/ Sodium Chloride) 50 mls @ 100 mls/hr IV Q6H [facility] Last Infusion: 11/19/24 07:31 Dose: Infused Documented By: JOHNNA Vancomycin HCl 1,250 mg/ (Sodium Chloride) 250 mls @ 166.667 mls/hr IV Q8H [facility] Last Infusion: 11/19/24 06:29 Dose: Infused Documented By: ALEXX Levalbuterol HCl (Levalbuterol Hcl 1.25 Mg/3 Ml Vial.Neb) 1.25 mg INHALE Q2H PRN PRN Reason: shortness of breath/wheeze Last Admin: 11/19/24 09:17 Dose: 1.25 mg Documented By: ROSALINE Magnesium Hydroxide (Milk Of Magnesia 30 Ml Oral.Susp) 30 ml PO DAILY PRN PRN Reason: Constipation Melatonin (Melatonin 3 Mg Tablet) 6 mg PO BEDTIME PRN PRN Reason: Insomnia Ondansetron HCl (Ondansetron Hcl 4 Mg/2 Ml Vial) 4 mg IVPUSH Q8H PRN PRN Reason: Nausea and Vomiting Pharmacy Consult (Consult Rx Vancomycin Dosing) 1 each MISCELLANE DAILY PRN PRN Reason: Consult order Sodium Chloride (0.9 % Sodium Chloride Flush 3 Ml Syringe) 3 ml IVFLUSH [facility] Last Admin: 11/19/24 08:04 Dose: 3 ml Documented By: RICCIAV Labs 11/18/24 12:37 11/19/24 07:01 Labs: Laboratory Results - last 24 hr 11/18/24 11/18/24 11/18/24 12:37 12:59 15:36 MCV 83.7 MCH 27.7 MCHC 33.1 RDW 14.9 Plt Count 188 MPV 9.9 Immature Gran % (Auto) 0.3 Neut % (Auto) 86.5 H Lymph % (Auto) 6.8 L Ross % (Auto) 6.0 Eos % (Auto) 0.1 Baso % (Auto) 0.3 Lymph # (Auto) 0.8 L Ross # (Auto) 0.7 Eos # (Auto) 0.0 Baso # (Auto) 0.0 Abs Immat Gran (auto) 0.03 Absolute Neuts (auto) 9.5 H Absolute Nucleated RBC 0.000 Nucleated RBC % (auto) 0.0 ESR 49 H Anion Gap 12 Estim Creat Clear Calc 241.1 Estimated GFR > 60 Random Glucose 96 Lactic Acid 0.9 Calcium 9.0 Magnesium 1.7 Total Bilirubin 0.3 AST 28 ALT 15 Alkaline Phosphatase 63 C-Reactive Protein 5.84 H Total Protein 7.1 Albumin 4.0 Procalcitonin 0.04 Beta HCG, Quant < 2 Urine Color Yellow Urine Appearance Clear Urine pH 7.0 Ur Specific [place] >= 1.030 H Urine Protein Trace Urine Glucose (UA) Negative Urine Ketones Negative Urine Blood Small (1+) H Urine Nitrite Negative Ur Leukocyte Esterase Negative Urine RBC >20 H Urine WBC 0-5 Ur Squamous Epith Cells 3-5 Urine Bacteria 1+ Hyaline Casts 0-2 Influenza Type A (PCR) NEGATIVE Influenza Type B (PCR) NEGATIVE RSV RNA Qual (PCR) NEGATIVE SARS-CoV-2 RNA (RT-PCR) NEGATIVE 11/19/24 07:01 MCV MCH MCHC RDW Plt Count MPV Immature Gran % (Auto) Neut % (Auto) Lymph % (Auto) Ross % (Auto) Eos % (Auto) Baso % (Auto) Lymph # (Auto) Ross # (Auto) Eos # (Auto) Baso # (Auto) Abs Immat Gran (auto) Absolute Neuts (auto) Absolute Nucleated RBC Nucleated RBC % (auto) ESR Anion Gap Estim Creat Clear Calc 246.8 Estimated GFR > 60 Random Glucose Lactic Acid Calcium Magnesium Total Bilirubin AST ALT Alkaline Phosphatase C-Reactive Protein Total Protein Albumin Procalcitonin Beta HCG, Quant Urine Color Urine Appearance Urine pH Ur Specific [place] Urine Protein Urine Glucose (UA) Urine Ketones Urine Blood Urine Nitrite Ur Leukocyte Esterase Urine RBC Urine WBC Ur Squamous Epith Cells Urine Bacteria Hyaline Casts Influenza Type A (PCR) Influenza Type B (PCR) RSV RNA Qual (PCR) SARS-CoV-2 RNA (RT-PCR) Assessment and Plan (1) Pneumonia: Status: Acute Plan d2 for 34yo F with 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, KIRK on nocturnal O2 2L, asthma, and PTSD presenting with exertional dyspnea, purulent cough, and chest pain that started overnight; found to be hypoxic with pneumonia, possible aspiration acute hypoxic respiratory failure due to pneumonia + asthma exacerbation - continue dexamethasone + vancomycin + piperacillin-tazobactam 11/18-, trend PCT, check respiratory pathogen panel/MRSA swab/urinary antigens for Legionella and pneumococcus, follow BCx, tracheostomy care, Pulm consult, SWEET POTATO DISINTEGRATOR consult to assess for aspiration - supplemental O2, wean as tolerated VTE ppx - enoxaparin dispo - eventual home Total time managing care of this patient today: 40 minutes. Quality Stroke Does the patient have a stroke diagnosis?: No VTE Prior VTE?: No VTE Risk Level:: Medical - moderate - high VTE Device Contraindication: N/A - Device Ordered VTE Drug Contraindication: N/A - Med Ordered
[2024-11-19 10:56] LABS: MRSA Nasal PCR NEGATIVE (Negative); SA Nasal PCR NEGATIVE (Negative)
[2024-11-19 11:02] LABS: Chlamydia pneumoniae PCR Not Detected (Not Detect.); Coronavirus 229E PCR Not Detected (Not Detect.); Coronavirus HKU1 PCR Not Detected (Not Detect.); Coronavirus NL63 PCR Not Detected (Not Detect.); Coronavirus OC43 PCR Not Detected (Not Detect.); RSV PCR Not Detected (Not Detect.); Rhino/Enterovirus PCR Not Detected (Not Detect.)
[2024-11-19 11:04] LABS: Influenza A H1 PCR Not Detected (Not Detect.); Influenza A H1-2009 PCR Not Detected (Not Detect.); Influenza A H3 PCR Not Detected (Not Detect.); SARS-CoV-2 PCR Not Detected (Not Detect.)
--- NOTE | 2024-11-19 11:27 | MHC.SL.SWA ---
Speech Pathologist Impression: Clinical bedside swallow evaluation completed, recommend Modified Barium Swallow Study (MBSS) to visualize swallow mechanism. Risk of Aspiration Due to: Tracheostomy Hx of aspiration PNAs Dysphasia Diet Status: Regular diet, thin liquids Liquid Consistency and Strategies for Safe Swallow: Liquid Intake Recommendation: Thin Liquid Intake Strategies: Solid Food Consistency: Dietary Recommendations: Regular Additional Modifications to Solid Foods: Oral Medication Intake: Whole with Liquid Please contact the pharmacy regarding appropriate crushable or liquid drug formulations that are available whenever modified delivery is recommended. Compensatory Strategies and Precautions to be Taken for Safe Swallow: Supervision While Eating and Drinking for Safe Swallow: None Needed Foods to Avoid: Foods that break up into small particles/crumbles (i.e. nuts, rice). Patient reported it feels stuck in the back of [her] throat when she swallows nuts and certain meat. Swallowing Recommended Treatments: Recommendation for Speech: Inpatient Speech Therapy Modified Barium Swallow Study - Inpatient Comment: Pt presents with adequate oropharyngeal coordination, though increased WOB significant s/p deglutition. Throat clear occurred x3 across length of evaluation, prior to PO and s/p PO. Pt voicing remained unchanged (stridorous and breathy but absent of wetness). Recc diet as ordered pending inpatient MBSS to visualize physiological function of swallow to determine most appropriate diet modifications/treatment. Frequency/Duration: Daily M-F Date Range for Service Req: Timeline to reassess: Glaze Grinder Clinican/Clinical Fellow: No Supervisory Statement: I have reviewed and agree with the student/clinical fellow's documentation: N/A Speech Language Pathologist: Christelle Hairston M.S., CCC-RAILWAY PATROL OFFICER
--- NOTE | 2024-11-19 11:35 | HE.PHANOTE ---
VANCO DOSE ADJUSTMENT BASED ON SCR AND TROUGH OF 11.9 DOSE CONTINUED AT 1250 Q 8H. NEXT LEVEL 11/20 @ 1100
--- NOTE | 2024-11-19 12:22 | MHC.CM.PN ---
IMM 11/19/24 DX PNA Lives with family members Home Oxygen + Trach supplies [place]. She she requires assist with ADLs and home making Access care partners referred in the community. A referral has been sent thru [facility]. DP home resume home oxygen. A family member will assist with transport home. A copy of her HCP has been requested.
--- NOTE | 2024-11-19 12:34 | P.CONPL_ITS ---
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 Irwin, also KIRK, on supplemental O2 at 2 L at night, asthma, recent admission to [facility] today end of October of 2024 for pneumonia admitted on 11/18/2024 with worsening dyspnea, hypoxia, and productive cough that started acutely at night. Patient was treated with empiric broad-spectrum antibiotics. Her CT chest demonstrated multifocal pneumonia. Review of Systems 2 Constitutional: Constitutional: Denies fatigue and Denies fever(s) Cardiovascular: Cardiovascular: Reports dyspnea, Reports dyspnea on exertion and Reports paroxysmal nocturnal dyspnea Respiratory: Respiratory: Reports cough, Reports excessive phlegm production, Reports dyspnea, Reports dyspnea on exertion and Denies wheezing Endocrine: Endocrine: Denies fatigue Allergic/Immunologic: Allergic/Immunologic: Denies wheezing PMFSH Past Medical History Medical History Hemoptysis Bronchopneumonia Dysphagia GERD (gastroesophageal reflux disease) Hypoxia Tachycardia Chronic respiratory failure Chest pain Pneumonia delivery due to maternal disorder, delivered, curr hospitaliz 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 Social History Social History Household Members: Family Housing: House Do you presently have visiting nurse or other home services: No Alcohol intake: never Patient Tobacco Use Status: Never used Tobacco Second Hand Smoke Exposure: No Advance Directives Date on File: 11/18/24 service: No Current occupational status: disabled Current occupation: right hand dominant Meds Allergies Allergy/AdvReac Type Severity Reaction Status Date / Time prednisone (PREDNISONE) Allergy Severe Difficulty Verified 11/18/24 10:42 Breathing Active Medications: Current Medications Acetaminophen (Acetaminophen 325 Mg Tablet) 650 mg PO Q6H PRN PRN Reason: Pain, Mild 1-3,fever,headache Last Admin: 11/19/24 07:18 Dose: 650 mg Calcium Carbonate (Calcium Carbonate 750 Mg Tab.Chew) 750 mg PO Q4H PRN PRN Reason: Heartburn Dexamethasone Sodium Phosphate (Dexamethasone Sod Phosphate 4 Mg/Ml Vial) 6 mg IVPUSH DAILY [facility] Last Admin: 11/19/24 08:04 Dose: 6 mg Piperacillin Sod/Tazobactam (Sod 3.375 gm/ Sodium Chloride) 50 mls @ 100 mls/hr IV Q6H [facility] Last Infusion: 11/19/24 07:31 Dose: Infused Vancomycin HCl 1,250 mg/ (Sodium Chloride) 250 mls @ 166.667 mls/hr IV Q8H [facility] Last Infusion: 11/19/24 06:29 Dose: Infused Levalbuterol HCl (Levalbuterol Hcl 1.25 Mg/3 Ml Vial.Neb) 1.25 mg INHALE Q2H PRN PRN Reason: shortness of breath/wheeze Last Admin: 11/19/24 09:17 Dose: 1.25 mg Magnesium Hydroxide (Milk Of Magnesia 30 Ml Oral.Susp) 30 ml PO DAILY PRN PRN Reason: Constipation Melatonin (Melatonin 3 Mg Tablet) 6 mg PO BEDTIME PRN PRN Reason: Insomnia Ondansetron HCl (Ondansetron Hcl 4 Mg/2 Ml Vial) 4 mg IVPUSH Q8H PRN PRN Reason: Nausea and Vomiting Pharmacy Consult (Consult Rx Vancomycin Dosing) 1 each MISCELLANE DAILY PRN PRN Reason: Consult order Sodium Chloride (0.9 % Sodium Chloride Flush 3 Ml Syringe) 3 ml IVFLUSH [facility] Last Admin: 11/19/24 08:04 Dose: 3 ml Home Medications ?Medication ?Instructions ?Recorded ?Confirmed ?Last Taken ?Type Oxygen Home Use 04/04/21 05/20/21 Unknown H istory nebulizers 11/11/22 Unknown History Physical Exam 2 Vital Signs: Vital Signs: Last Vital Signs Temp 98.0 F 11/19/24 11:36 Pulse 95 11/19/24 11:36 Resp 20 11/19/24 11:36 BP 114/65 11/19/24 11:36 Pulse Ox 94 11/19/24 11:36 O2 Del Method Trach Collar 11/19/24 11:36 O2 Flow Rate 5 11/19/24 11:36 FiO2 50 11/19/24 03:36 Oxygen Flow Rate 3 11/18/24 10:41 BMI result Body Mass Index 42.9 Const: General: no acute distress, alert and awake Nutritional Appearance: obese Eyes: Sclerae: sclerae normal EOM: EOMs intact bilaterally Neck: Neck: Yes no lymphadenopathy, Yes trachea midline, Yes supple and Yes tracheostomy present (On tracheal collar) Resp: Effort & Inspection: normal respiratory effort and no respiratory distress Auscultation: clear to auscultation bilaterally Cardio: Rate: regular rate Rhythm: regular rhythm Heart sounds: no gallops, no murmurs and no rubs GI: Palpation (GI): Soft to palpation and Other GI palpation findings present ( Nontender) Auscultation: normal bowel sounds Extrem: General: Yes no pedal edema, No clubbing and No cyanosis Results Laboratory Findings 11/18/24 12:37 11/19/24 07:01 Abnormal lab findings: Abnormal Labs 11/18/24 11/18/24 11/18/24 12:37 12:59 15:36 WBC 11.0 H Hgb 11.7 L Hct 35.4 L Neut % (Auto) 86.5 H Lymph % (Auto) 6.8 L Lymph # (Auto) 0.8 L Absolute Neuts (auto) 9.5 H ESR 49 H Creatinine 0.40 L C-Reactive Protein 5.84 H Ur Specific [place] >= 1.030 H Urine Blood Small (1+) H Urine RBC >20 H 11/19/24 07:01 WBC Hgb Hct Neut % (Auto) Lymph % (Auto) Lymph # (Auto) Absolute Neuts (auto) ESR Creatinine 0.40 L C-Reactive Protein Ur Specific [place] Urine Blood Urine RBC Assessment and Plan (1) Charcot Shantell Tooth muscular atrophy: Status: Acute (2) Tracheostomy in place: Status: Acute (3) Acute hypoxic respiratory failure: Status: Acute Plan Impression: 34-year-old lady with underlying Oidfbll-Okdpk-Zfufu syndrome with vocal cord paralysis status post tracheostomy in childhood, now with recurrent pneumonic symptoms and hypoxia. Suspicion for an aspiration component to her recent recurrent symptoms. Recommendations: Agree with empiric broad-spectrum antibiotics. Consider chest physiotherapy and modified barium swallow evaluation. Procedures Date of Service Date of Service: 11/19/24
[2024-11-20] VITALS (12 sets, daily range): BP systolic 98–139; BP diastolic 54–93; PULSE 63–95; RESP 16–22; TEMP 36.2–37.1; O2SAT 93–97
[2024-11-20 06:25] LABS: Venous Blood Gas Refer to POC result
[2024-11-20 06:29] LABS: VBG HCO3 27 mmol/L (22-26); VBG O2 % Saturation 88.0 %
[2024-11-20 06:41] LABS: Creatinine Clr Calc Pharmacy 235.1; Estimated Glomerular Filt Rate > 60
--- NOTE | 2024-11-20 08:24 | PC.RT ---
Pt seen his am for PRN neb tx. RT suctioned out a thick mucus plug. Pt educated on inner cannula and benefit for mucus plugging, pt agreeable, inner cannula placed and extras are at the bedside.
--- NOTE | 2024-11-20 08:26 | PC.RT ---
Pt states her will bring in her chest physiotherapy vest today.
[2024-11-20] MEDS: 0.9 % Sodium Chloride Flush 3 ML SYRINGE IVFLUSH ×2 (08:27→18:35)
--- NOTE | 2024-11-20 08:56 | MHC.SLORD ---
Speech Language Pathology Order Status: MBSS scheduled for 2:30pm today. Radiology to arrange for transport. MD notified via [place] Message.
--- NOTE | 2024-11-20 11:21 | MHC.CM.PN ---
EMR reviewed and per MD rounds, pt is not medically cleared for discharge due to management of pneumonia and asthma exacerbation.
--- NOTE | 2024-11-20 14:56 | HE.PHANOTE ---
RE: VANCO DOSING Trough came back as 20.7 mg/L, renal function is stable. Dose is reduced to 1500 mg q12h, starting @2100 11/20/24. Next trough is scheduled for 11/21/24 @0700.
--- NOTE | 2024-11-20 15:54 | MHC.SL.IMP ---
Date of Plan of Treatment: 11/20/24 Onset of Symptoms/Illness: 11/18/24 Date Treatment Started: 11/19/24 Admitting Diagnosis: PNA Primary Speech & Language Diagnosis: R13.12 Oropharyngeal Phase Dysphagia Reason for Today's Visit: 90732 Modified Barium Swallow Study Pre-evaluation Dietary Consistencies: Regular Pre-evaluation Liquid Consistency: Thin Pre-evaluation Medication Administration: Whole with Liquid Medical History: Modified Barium Swallow Study Fluoroscopic Evaluation of Swallowing Function CPT Code 33034 Evaluation Year: 2024 Reason for Study: ? Silent Aspiration Referring Physician: Leopoldo Law DO Evaluating Clinician: Hafsa Ott MA, CCC-BINDING MACHINE OPERATOR Study Number: 1 Patient Name: Jessica Salvador Status: Outpatient Age: 34 Sex: Female Medical History Medical History Hemoptysis Bronchopneumonia Dysphagia GERD (gastroesophageal reflux disease) Hypoxia Tachycardia Chronic respiratory failure Chest pain Pneumonia delivery due to maternal disorder, delivered, curr hospitaliz 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 Current (pre-evaluation) Intake/Diet: Route: PO Diet Grade: Regular Liquid Consistencies: Thin Pre-Study Functional Oral Intake Scale (FOIS): 7- Total oral intake with no restrictions Pain: None reported at time of study SUBJECTIVE: Patient is a 34 year old female brought to the ED by ambulance for progressively worsening R-sided chest tightness, exacerbated w/ deep inspiration, shortness of breath, increased secretions, and chills at night. Patient reports she was evaluated at [facility] one month ago and diagnosed with PNA, then seen by Pulmonology at [facility] for follow-up a week later. She reportedly completed a course of antibiotics and steroids. Patient?s chest CTA this admission 11/18 showed right middle lobe PNA and concern for possible aspiration. Patient has a tracheostomy (since childhood), had MBSS done here in the past on 10/03/21 which showed no aspiration or penetration. Patient is receiving supplemental O2 via trach collar at this time. Pertinent medical history also includes asthma, Regiree-Qpvip-Jhzkn muscular atrophy, and GERD. Patient says she eats a regular texture diet and thin liquids. She has history of having been on thickened liquids in childhood and having multiple MBSS?s in the past. Patient arrived without her speaking valve which was left in her room and reports she typically eats without it because she has a hard time breathing with it in. Patient occluded trach using her finger when speaking. Patient was transported to this exam in a wheelchair. Food and Liquid Trials: Oral Impairment: Lip Closure: 0=No labial escape Oral Impairment: Tongue Control During Bolus Hold: 1=Escape to lateral buccal cavity/floor of mouth (FOM) Oral Impairment: Bolus Preparation/Mastication: 0=Timely and efficient chewing and mashing Oral Impairment: Bolus Transport/Lingual Motion: 1= Delayed initiation of tongue motion Oral Impairment: Oral Residue: 1=Trace residue lining oral structures Oral Impairment:Initiation of Pharyngeal Swallow: 1=Bolus head in valleculae Pharyngeal Impairment: Soft Palate Elevation: 0=No bolus between soft palate (SP)/pharyngeal wall (PW) Pharyngeal Impairment: Laryngeal Elevation: 1=Partial thyroid cartilage/arytenoids to epiglottic petiole movement Pharyngeal Impairment: Anterior Hyoid Excursion: 1=Partial anterior movement Pharyngeal Impairment: Epiglottic Movement: 0=Complete inversion Pharyngeal Impairment: Laryngeal Vestibular Closure:: 0=Complete: no air/contrast in laryngeal vestibule Pharyngeal Impairment: Pharyngeal Stripping Wave: 0=Present: complete Pharyngeal Impairment: Pharyngeal Contraction: Did not test Pharyngeal Impairment: Pharyngoesophageal Segment Openin=Partial distention/partial duration: partial obstruction of flow Pharyngeal Impairment: Tongue Base (TB) Retraction: 2=Narrow column of contrast/air between TB and posterior PW Pharyngeal Impairment: Pharyngeal Residue: 1=Trace residue within or on pharyngeal structures Pharyngeal Impairment: Esophageal Clearance Upright Position: Did not test Impressions and Recommendations OBJECTIVE: Time-out: performed at 15:00 Evaluation Start: 14:45; Stop: 14:50 Patient Positioning: Seated 70-90 degrees Viewing Planes: LATERAL ONLY Contrast: MBSImP? Standardized Protocol using commercially prepared, standardized Barium viscosities, including: Varibar? THIN LIQUID (40% w/v, <15 cps) , Varibar? PUDDING (40% w/v, <2479-9393 cps) , 1/2 Shortbread Cookie (1 x1 x.25 ) MBSImP ID: [id number] MBSImP Results: Lip closure for intraoral bolus containment resulted in no labial escape. Tongue control during bolus hold allowed bolus escape to the lateral buccal cavity/floor of mouth. Bolus preparation and mastication resulted in timely and efficient chewing and mashing. Bolus transport/lingual motion demonstrated delayed initiation of tongue motion. Oral residue was a trace, lining oral structures. Initiation of the pharyngeal swallow occurred when the bolus head was in the valleculae. Soft palate elevation resulted in no bolus between the soft palate and the pharyngeal wall. Laryngeal elevation was decreased, with partial superior movement of the thyroid cartilage/partial approximation of the arytenoids to the epiglottic petiole. Anterior hyoid excursion demonstrated partial anterior movement. Epiglottic movement resulted in complete inversion. Laryngeal vestibular closure was complete, as indicated by no air or contrast within the laryngeal vestibule at the height of the swallow. Pharyngeal stripping wave was present and complete. Pharyngeal contraction could not be determined due to logistical reasons not related to physiologic impairment. Pharyngoesophageal segment opening demonstrated partial distension/partial duration, with partial obstruction of bolus flow. Tongue base retraction allowed a narrow column of contrast or air between the retracted tongue base and the posterior pharyngeal wall. Pharyngeal residue was a trace within or on pharyngeal structures. Esophageal clearance in the upright position could not be assessed due to logistical reasons not related to physiologic impairment. Oral Impairment Score: 3 Pharyngeal Impairment Score: 5 (absence of score, component 13) Esophageal Impairment Score: --- (absence of score, component 17) Laryngeal Penetration and Aspiration: Neither penetration nor aspiration was observed in today's study with Cookie, Pudding-thick, Thin. ASSESSMENT: This exam was performed by the radiologist and the speech pathologist. Patient was seated upright in a wheelchair for lateral view only. Patient fed herself without difficulty and trialed the following consistencies: Thin liquid (via individual and rapid sequential cup sips) Puree (mixture applesauce w/ barium pudding) Regular (shortbread cookie coated w/ barium pudding) Good lip closure with no anterior spilling. There was escape of bolus to the floor of mouth, but no spillage posteriorly from the oral cavity. Mastication was timely and efficient. Mildly delayed posterior lingual motion, brisk lingual movement. Trace lingual residue cleared on subsequent swallows. Pharyngeal swallow trigger initiated as the bolus head reached the valleculae. No evidence of nasopharyngeal reflux. Partial laryngeal elevation, but with good airway protection. Complete epiglottic inversion and laryngeal vestibular closure. No evidence of aspiration or penetration during this exam. Trace residue in the valleculae and pyriforms cleared with self-initiated dry swallow. The following compensatory strategies have not been used until today's study, but when employed, improved swallowing function: Additional Swallow(s) per Bolus eliminated Oral Residue, Pharyngeal Residue Liquid Intake Recommendation: Thin Liquid Intake Strategies: Small Sips, Double Swallow Dietary Recommendations: Regular Medication Administration: Whole with Liquid Please contact the pharmacy regarding appropriate crushable or liquid drug formulations that are available whenever modified delivery is recommended. Compensatory Strategies Recommended: Sitting Upright (90 deg), Double Swallow, Small Bites and Sips, Alternate Liquids/Solids, Rate of Ingestion Change Supervision during eating and or drinking: Intermittent Supervision Recommended Treatments: Compens. Strategy Educat. Recommendation for Speech Therapy: Inpatient Speech Therapy Text Comment: Intake Recommendations: Route: PO Diet Grade: Regular Liquid Consistencies: Thin Post-Study Functional Oral Intake Scale (FOIS): 7- Total oral intake with no restrictions Very trace amount of residue seen on the blade of tongue, in the valleculae, and in the pyriforms, which cleared with self-initiated dry swallows. Noted partial distention/duration at the UES, which seemed to contribute to residue collecting in the pyriform. No evidence of aspiration or penetration with trials of liquids and solids. Therapy Recommendations: Recommend continue on REGULAR texture diet and THIN liquids, pills WHOLE with LIQUID. Risk of aspiration associated w/ tracheostomy, hx also includes GERD, current dx of PNA. Continue w/ standard aspiration precautions: -small bites/sips -one bite/sip at a time -alternate solids/liquids -dry swallow after each bite/sip -ensure upright positioning during PO intake and for at least 30 minutes afterwards -daily oral care routine Patient was advised on strategies after the exam. Recommend 1 f/u w/ BINDING MACHINE OPERATOR to reinforce strategies and monitor patient?s tolerance of PO. The following compensatory strategies and/or therapeutic exercises will be part of the upcoming therapy/management plan: Additional Swallow(s) per Bolus Driving Instructor Goals: ? The patient will tolerate the least restrictive diet with a safe/efficient swallow to maintain adequate nutrition and hydration. ? The patient and/or family will participate in further education for swallowing goals. Short Term Goals: ? Diet - The patient will tolerate a regular diet with thin liquids without signs or symptoms of penetration/aspiration 100% of the time. ? Guidelines - The patient will comply with/recall the following guidelines/strategies 100% of the time with no cuing: Bolus Volume Change, Rate of Ingestion Change, Additional Swallow(s) per Bolus. ? Education - The patient will verbalize/demonstrate understanding of the results of this evaluation, the above recommendations, and the swallowing guidelines. Frequency/Duration: 1 f/u Date Range for Service Requested: Timeline to reassess: PRN Clinician - Supplemental, Miscellaneous Communication: It is important to note MBSS objective studies are snapshots in time and Patient function might vary with factors such as time of day or concomitant medical conditions. For this reason, the final treatment plan for this patient should rest with their medical care team. Additional recommendations should be considered with the totality of the Patient in mind. Thank for the opportunity to participate in the care of this patient. If you have any questions about the content of this report, please contact the [facility] at [facility]. Education: Education regarding findings from today's study and plans for therapy were provided to Patient only through Verbal Instruction. Understanding was expressed by the Patient only. Veterinary Physiologist Clinician/Clinical Fellow: No Supervisory Statement: N/A Speech Language Pathologist: Hafsa Ott M.A., [facility]-BINDING MACHINE OPERATOR
--- NOTE | 2024-11-20 15:59 | P.PNIM_ITS ---
Subjective Subjective Date of Service: 11/20/24 Interval History: Still moderately short of breath with wheezes. Modified barium swallow unremarkable Review of Systems Denies chest pain Denies nausea vomiting diarrhea Admits to shortness of breath that is minimally improved since admission Denies fever chills Physical Exam 2 Vital Signs: Vital Signs: Last Vital Signs Temp 98.8 F 11/20/24 15:47 Pulse 67 11/20/24 15:51 Resp 18 11/20/24 15:51 BP 121/76 11/20/24 15:47 Pulse Ox 94 11/20/24 15:47 O2 Del Method Trach Collar 11/20/24 15:47 O2 Flow Rate 5 11/20/24 15:47 FiO2 50 11/19/24 03:36 Oxygen Flow Rate 3 11/18/24 10:41 BMI result Body Mass Index 42.9 Const: Other: Awake alert no acute distress. Speaking in full sentences with trach tab in Resp: Other: Diminished at bases with scattered expiratory wheezes throughout Cardio: Other: No S4; positive S1-S2; no S3 murmurs rubs or gallops GI: Other: Soft nontender nondistended normoactive bowel sounds Extrem: Other: No edema bilaterally Objective Data Active Medications Acetaminophen (Acetaminophen 325 Mg Tablet) 650 mg PO Q6H PRN PRN Reason: Pain, Mild 1-3,fever,headache Last Admin: 11/20/24 08:26 Dose: 650 mg Documented By: JOHNNA Calcium Carbonate (Calcium Carbonate 750 Mg Tab.Chew) 750 mg PO Q4H PRN PRN Reason: Heartburn Piperacillin Sod/Tazobactam (Sod 3.375 gm/ Sodium Chloride) 50 mls @ 100 mls/hr IV Q6H [facility] Last Infusion: 11/20/24 14:21 Dose: Infused Documented By: JOHNNA Vancomycin HCl 1,500 mg/ (Sodium Chloride) 500 mls @ 333.333 mls/hr IV Q12H [facility] Levalbuterol HCl (Levalbuterol Hcl 1.25 Mg/3 Ml Vial.Neb) 1.25 mg INHALE Q4H [facility] Last Admin: 11/20/24 15:44 Dose: 1.25 mg Documented By: SCOVILSimeon Magnesium Hydroxide (Milk Of Magnesia 30 Ml Oral.Susp) 30 ml PO DAILY PRN PRN Reason: Constipation Melatonin (Melatonin 3 Mg Tablet) 6 mg PO BEDTIME PRN PRN Reason: Insomnia Methylprednisolone Sodium Succinate (Methylprednisolone Sod Succ 125 Mg/2 Ml Vial) 60 mg IVPUSH Q6H [facility] Ondansetron HCl (Ondansetron Hcl 4 Mg/2 Ml Vial) 4 mg IVPUSH Q8H PRN PRN Reason: Nausea and Vomiting Pharmacy Consult (Consult Rx Vancomycin Dosing) 1 each MISCELLANE DAILY PRN PRN Reason: Consult order Sodium Chloride (0.9 % Sodium Chloride Flush 3 Ml Syringe) 3 ml IVFLUSH QSHIFT [facility] Last Admin: 11/20/24 08:27 Dose: 3 ml Documented By: JOHNNA Labs 11/18/24 12:37 11/20/24 06:19 Labs: Laboratory Results - last 24 hr 11/20/24 11/20/24 11/20/24 06:19 06:24 14:01 VBG pH 7.39 VBG pCO2 45 VBG pO2 54 VBG HCO3 27 H VBG O2 Saturation 88.0 VBG Base Excess 2.5 Estim Creat Clear Calc 235.1 Estimated GFR > 60 Vancomycin Trough 20.7 H Microbiology Microbiology Results: Microbiology 11/18/24 12:58 Blood Culture - Preliminary Blood - Venous No growth after 48 hours. 11/18/24 12:37 Blood Culture - Preliminary Blood - Venous No growth after 48 hours. 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, KIRK on nocturnal O2 2L, asthma, and PTSD presenting with exertional dyspnea, purulent cough, and chest pain that started overnight; found to be hypoxic with pneumonia, possible aspiration 1.Acute hypoxic respiratory failure due to pneumonia/asthma exacerbation -vancomycin/piperacillin-tazobactam (3) -respiratory pathogen panel/MRSA swab/urinary antigens for Legionella and pneumococcus, follow BCx, -switch Decadron to methylprednisolone -supplemental O2, wean as tolerated Lovenox Full code dispo - eventual home Quality Stroke Does the patient have a stroke diagnosis?: No VTE Prior VTE?: No VTE Risk Level:: Medical - moderate - high VTE Device Contraindication: N/A - Device Ordered VTE Drug Contraindication: N/A - Med Ordered
[2024-11-21] VITALS (11 sets, daily range): BP systolic 102–132; BP diastolic 52–74; PULSE 64–88; RESP 18–20; TEMP 36.1–36.7; O2SAT 92–99
[2024-11-21 07:33] LABS: Creatinine Clr Calc Pharmacy 205.7; Estimated Glomerular Filt Rate > 60
[2024-11-21] MEDS: 0.9 % Sodium Chloride Flush 3 ML SYRINGE IVFLUSH ×3 (08:14→20:55)
--- NOTE | 2024-11-21 08:21 | PC.RT ---
Pt using their own Vest Therapy, 30 minutes.
--- NOTE | 2024-11-21 08:23 | HE.PHANOTE ---
VANCO DOSE ADJUSTMENT BASED ON SCR AND TROUGH OF 12.8 DOSE CONTINUED AT 1500 Q 12H. NEXT LEVEL 11/22 @ 0700
--- NOTE | 2024-11-21 11:30 | MHC.SL.SWA ---
Speech Pathologist Impression: Risk of Aspiration Risk of Aspiration Due to: History of Pneumonia Dysphasia Diet Status: No Change Liquid Consistency and Strategies for Safe Swallow: Liquid Intake Recommendation: Thin Liquid Intake Strategies: Small Sips Double Swallow Solid Food Consistency: Dietary Recommendations: Regular Additional Modifications to Solid Foods: Recommend continue on REGULAR texture diet and THIN liquids, pills WHOLE with LIQUID. Risk of aspiration associated w/ tracheostomy, hx also includes GERD, current dx of PNA. Continue w/ standard aspiration precautions: -small bites/sips -one bite/sip at a time -alternate solids/liquids -dry swallow after each bite/sip -ensure upright positioning during PO intake and for at least 30 minutes afterwards -daily oral care routine Oral Medication Intake: Whole with Liquid Please contact the pharmacy regarding appropriate crushable or liquid drug formulations that are available whenever modified delivery is recommended. Compensatory Strategies and Precautions to be Taken for Safe Swallow: Sitting Upright (90 deg) Double Swallow Small Bites and Sips Alternate Liquids/Solids Rate of Ingestion Change Supervision While Eating and Drinking for Safe Swallow: Intermittent Supervision Swallowing Recommended Treatments: Compens. Strategy Educat. Recommendation for Speech: D/C Vp Clinical Research Clinican/Clinical Fellow: No Supervisory Statement: I have reviewed and agree with the student/clinical fellow's documentation: N/A Speech Language Pathologist: Hafsa Ott M.A., CCC-STORAGE MANAGER
--- NOTE | 2024-11-21 15:17 | HO.PM.IMPN ---
Subjective Subjective Date of Service: 11/21/24 Interval History: No acute issues overnight. Good response to steroids. Voiced much stronger with trach capped Review of Systems Denies chest pain Denies nausea vomiting diarrhea Admits to shortness of breath that is minimally improved since admission Denies fever chills Physical Exam Vital Signs: Vital Signs: Last Vital Signs Temp 98 F 11/21/24 11:19 Pulse 80 11/21/24 11:19 Resp 18 11/21/24 11:19 BP 119/62 11/21/24 11:19 Pulse Ox 99 11/21/24 11:19 O2 Del Method Trach Collar 11/21/24 11:19 O2 Flow Rate 5 11/21/24 11:19 FiO2 28 11/20/24 19:52 Oxygen Flow Rate 5 11/20/24 19:52 BMI result Body Mass Index 42.9 Const: Other: Awake alert no acute distress. Speaking in full sentences with trach tab in Resp: Other: Diminished at bases with scattered expiratory wheezes throughout Cardio: Other: No S4; positive S1-S2; no S3 murmurs rubs or gallops GI: Other: Soft nontender nondistended normoactive bowel sounds Extrem: Other: No edema bilaterally Objective Data Active Medications Acetaminophen (Acetaminophen 325 Mg Tablet) 650 mg PO Q6H PRN PRN Reason: Pain, Mild 1-3,fever,headache Last Admin: 11/21/24 08:13 Dose: 650 mg Documented By: JOHNNA Calcium Carbonate (Calcium Carbonate 750 Mg Tab.Chew) 750 mg PO Q4H PRN PRN Reason: Heartburn Piperacillin Sod/Tazobactam (Sod 3.375 gm/ Sodium Chloride) 50 mls @ 100 mls/hr IV Q6H [facility] Last Infusion: 11/21/24 13:32 Dose: Infused Documented By: JOHNNA Vancomycin HCl 1,500 mg/ (Sodium Chloride) 500 mls @ 333.333 mls/hr IV Q12H [facility] Last Infusion: 11/21/24 12:15 Dose: Infused Documented By: JOHNNA Levalbuterol HCl (Levalbuterol Hcl 1.25 Mg/3 Ml Vial.Neb) 1.25 mg INHALE Q4H [facility] Last Admin: 11/21/24 15:13 Dose: Not Given Documented By: SYLVIE Non-Admin Reason: Patient Asleep Magnesium Hydroxide (Milk Of Magnesia 30 Ml Oral.Susp) 30 ml PO DAILY PRN PRN Reason: Constipation Melatonin (Melatonin 3 Mg Tablet) 6 mg PO BEDTIME PRN PRN Reason: Insomnia Methylprednisolone Sodium Succinate (Methylprednisolone Sod Succ 125 Mg/2 Ml Vial) 60 mg IVPUSH Q6H [facility] Last Admin: 11/21/24 12:54 Dose: 60 mg Documented By: JOHNNA Ondansetron HCl (Ondansetron Hcl 4 Mg/2 Ml Vial) 4 mg IVPUSH Q8H PRN PRN Reason: Nausea and Vomiting Pharmacy Consult (Consult Rx Vancomycin Dosing) 1 each MISCELLANE DAILY PRN PRN Reason: Consult order Sodium Chloride (0.9 % Sodium Chloride Flush 3 Ml Syringe) 3 ml IVFLUSH QSHIFT [facility] Last Admin: 11/21/24 08:14 Dose: 3 ml Documented By: JOHNNA Labs 11/18/24 12:37 11/21/24 07:11 Labs: Laboratory Results - last 24 hr 11/21/24 11/21/24 07:11 07:12 Estim Creat Clear Calc 205.7 Estimated GFR > 60 Random Vancomycin 12.8 L Microbiology Microbiology Results: Microbiology 11/18/24 12:58 Blood Culture - Preliminary Blood - Venous No growth after 48 hours. 11/18/24 12:37 Blood Culture - Preliminary Blood - Venous No growth after 48 hours. 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 Good response -supplemental O2, wean as tolerated Lovenox Full code dispo - eventual home Quality Stroke Does the patient have a stroke diagnosis?: No VTE Prior VTE?: No VTE Risk Level:: Medical - moderate - high VTE Device Contraindication: N/A - Device Ordered VTE Drug Contraindication: N/A - Med Ordered
[2024-11-22] VITALS (10 sets, daily range): BP systolic 119–142; BP diastolic 58–85; PULSE 65–119; RESP 16–20; TEMP 36.2–36.6; O2SAT 92–99
[2024-11-22 07:39] LABS: Creatinine Clr Calc Pharmacy 176.3; Estimated Glomerular Filt Rate > 60
--- NOTE | 2024-11-22 07:46 | HE.PHANOTE ---
re [facility] Patients level came back this morning at 15.2. SCR up to 0.56 from 0.48 yesterday, will pull another level tomorrow to ensure safety vs efficacy with unstable renal function. Will continue with current dose as indication is respiratory infection. Predicted AUC 560
[2024-11-22] MEDS: 0.9 % Sodium Chloride Flush 3 ML SYRINGE IVFLUSH ×3 (09:17→22:02)
--- NOTE | 2024-11-22 12:39 | HO.ANESPROP2 ---
HPI - Anesthesia Eval Consult details Narrative: 34 yr old female for bronchoscopy +CP/SOB 2/2 RML PNA +tracheostomy in place, uncuffed Vocal cord/diaphragm paralysis HCG neg PMFSH Active Problems Active Problems: All Active Problems Acute hypoxic respiratory failure (Acute) Pneumonia (Acute) Hemoptysis (Acute) Viral syndrome (Acute) Right shoulder tendinitis (Acute) Dyskinesis of right scapula (Acute) Ecchymosis (Acute) Asthma (Acute) Bronchopneumonia (Acute) Tracheitis (Acute) Cough (Acute) Reactive airway disease (Acute) Dysphagia (Acute) GERD (gastroesophageal reflux disease) (Acute) Hypoxia (Acute) Tachycardia (Acute) Chronic respiratory failure (Acute) [place] Tooth muscular atrophy (Acute) Tracheostomy in place (Acute) Tracheobronchitis (Acute) Chest pain (Acute) COVID-19 (Acute) Pneumonia, viral (Acute) Past Medical History Medical History (Updated 12/17/24 @ 20:02 by Rashaun Irwin MD) 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 Asthma Hemoptysis Bronchopneumonia Dysphagia GERD (gastroesophageal reflux disease) Hypoxia Tachycardia Chronic respiratory failure Chest pain Pneumonia delivery due to maternal disorder, delivered, curr hospitaliz Tracheostomy in place Surgical History Surgical History H/O tracheostomy H/O colonoscopy History of laryngoscopy History of bronchoscopy Previous section Social History Social History Household Members: Family Housing: House Are you a primary customer care manager to a significant other at home: No Do you presently have visiting nurse or other home services: No Alcohol intake: never Comment: lower extremity braces, bilateral Patient Tobacco Use Status: Never used Tobacco Second Hand Smoke Exposure: No Advance Directives Date on File: 11/18/24 service: No Current occupational status: disabled Current occupation: right hand dominant Meds Allergies Allergy/AdvReac Type Severity Reaction Status Date / Time prednisone (PREDNISONE) Allergy Severe Difficulty Verified 12/14/24 14:24 Breathing Active Medications: Current Medications Acetaminophen (Acetaminophen 325 Mg Tablet) 650 mg PO Q6H PRN PRN Reason: Pain, Mild 1-3,fever,headache Last Admin: 11/21/24 23:10 Dose: 650 mg Calcium Carbonate (Calcium Carbonate 750 Mg Tab.Chew) 750 mg PO Q4H PRN PRN Reason: Heartburn Piperacillin Sod/Tazobactam (Sod 3.375 gm/ Sodium Chloride) 50 mls @ 100 mls/hr IV Q6H [facility] Last Infusion: 11/22/24 07:01 Dose: Infused Vancomycin HCl 1,500 mg/ (Sodium Chloride) 500 mls @ 333.333 mls/hr IV Q12H [facility] Last Infusion: 11/22/24 10:35 Dose: Infused Levalbuterol HCl (Levalbuterol Hcl 1.25 Mg/3 Ml Vial.Neb) 1.25 mg INHALE Q4H [facility] Last Admin: 11/22/24 11:29 Dose: 1.25 mg Magnesium Hydroxide (Milk Of Magnesia 30 Ml Oral.Susp) 30 ml PO DAILY PRN PRN Reason: Constipation Melatonin (Melatonin 3 Mg Tablet) 6 mg PO BEDTIME PRN PRN Reason: Insomnia Methylprednisolone Sodium Succinate (Methylprednisolone Sod Succ 125 Mg/2 Ml Vial) 60 mg IVPUSH Q6H [facility] Last Admin: 11/22/24 06:21 Dose: 60 mg Ondansetron HCl (Ondansetron Hcl 4 Mg/2 Ml Vial) 4 mg IVPUSH Q8H PRN PRN Reason: Nausea and Vomiting Pharmacy Consult (Consult Rx Vancomycin Dosing) 1 each MISCELLANE DAILY PRN PRN Reason: Consult order Sodium Chloride (0.9 % Sodium Chloride Flush 3 Ml Syringe) 3 ml IVFLUSH QSHIFT [facility] Last Admin: 11/22/24 09:17 Dose: 3 ml Home Medications ?Medication ?Instructions ?Recorded ?Confirmed ?Last Taken ?Type Oxygen Home Use 04/04/21 05/20/21 Unknown History nebulizers 11/11/22 Unknown History Exam Height,Weight and Vital Signs: Height 5 ft 4 in Weight 113.4 kg Last Vital Signs Temp 97.1 F 11/22/24 11:39 Pulse 76 11/22/24 11:39 Resp 20 11/22/24 11:39 BP 119/58 L 11/22/24 11:39 Pulse Ox 99 11/22/24 11:39 O2 Del Method Trach Collar 11/22/24 11:39 O2 Flow Rate 6 11/22/24 11:39 FiO2 28 11/20/24 19:52 Oxygen Flow Rate 5 11/20/24 19:52 Pertinent Lab Results Pertinent Lab Results: Laboratory Tests 11/18/24 11/18/24 11/18/24 12:37 12:59 15:36 WBC 11.0 H RBC 4.23 Hgb 11.7 L Hct 35.4 L MCV 83.7 MCH 27.7 MCHC 33.1 RDW 14.9 Plt Count 188 MPV 9.9 Immature Gran % (Auto) 0.3 Neut % (Auto) 86.5 H Lymph % (Auto) 6.8 L [place] % (Auto) 6.0 Eos % (Auto) 0.1 Baso % (Auto) 0.3 Lymph # (Auto) 0.8 L [place] # (Auto) 0.7 Eos # (Auto) 0.0 Baso # (Auto) 0.0 Abs Immat Gran (auto) 0.03 Absolute Neuts (auto) 9.5 H Absolute Nucleated RBC 0.000 Nucleated RBC % (auto) 0.0 ESR 49 H VBG pH VBG pCO2 VBG pO2 VBG HCO3 VBG O2 Saturation VBG Base Excess Sodium 141 Potassium 3.9 Chloride 106 Carbon Dioxide 27 Anion Gap 12 BUN 11 Creatinine 0.40 L Estim Creat Clear Calc 241.1 Estimated GFR > 60 Random Glucose 96 Lactic Acid 0.9 Calcium 9.0 Magnesium 1.7 Total Bilirubin 0.3 AST 28 ALT 15 Alkaline Phosphatase 63 Troponin I High Sens < 2.7 C-Reactive Protein 5.84 H Total Protein 7.1 Albumin 4.0 Procalcitonin 0.04 Beta HCG, Quant < 2 Urine Color Yellow Urine Appearance Clear Urine pH 7.0 Ur Specific [place] >= 1.030 H Urine Protein Trace Urine Glucose (UA) Negative Urine Ketones Negative Urine Blood Small (1+) H Urine Nitrite Negative Ur Leukocyte Esterase Negative Urine RBC >20 H Urine WBC 0-5 Ur Squamous Epith Cells 3-5 Urine Bacteria 1+ Hyaline Casts 0-2 Nasal Screen MRSA (PCR) Nasal S. aureus Screen Nasal MRSA/S.aureus Interp Vancomycin Trough Random Vancomycin Respiratory Panel Soares Adenovirus (Rapid PCR) B.pert (TEM-PCR) B.parapertussis DNA PCR C. pneumoniae DNA (PCR) Coronavirus OC43 (PCR) Coronavirus HKU1 (PCR) Coronavirus 229E (PCR) Coronavirus NL63 (PCR) Human Metapneumovir PCR Influenza A (RT-PCR) Influenza A (H1) PCR Influ A () PCR Influenza A (H3) PCR Influenza Type A (PCR) NEGATIVE Influenza B (RT-PCR) Influenza Type B (PCR) NEGATIVE M. pneumoniae (PCR) Parainfluenza 1 (PCR) Parainfluenza 2 (PCR) Parainfluenza 3 (PCR) Parainfluenza 4 (PCR) RSV (PCR) RSV RNA Qual (PCR) NEGATIVE Entero/Rhino (PCR) SARS-CoV-2 RNA (RT-PCR) NEGATIVE 11/18/24 11/19/24 11/19/24 22:48 07:01 10:55 WBC RBC Hgb Hct MCV MCH MCHC RDW Plt Count MPV Immature Gran % (Auto) Neut % (Auto) Lymph % (Auto) [place] % (Auto) Eos % (Auto) Baso % (Auto) Lymph # (Auto) [place] # (Auto) Eos # (Auto) Baso # (Auto) Abs Immat Gran (auto) Absolute Neuts (auto) Absolute Nucleated RBC Nucleated RBC % (auto) ESR VBG pH VBG pCO2 VBG pO2 VBG HCO3 VBG O2 Saturation VBG Base Excess Sodium Potassium Chloride Carbon Dioxide Anion Gap BUN Creatinine 0.40 L Estim Creat Clear Calc 246.8 Estimated GFR > 60 Random Glucose Lactic Acid Calcium Magnesium Total Bilirubin AST ALT Alkaline Phosphatase Troponin I High Sens C-Reactive Protein Total Protein Albumin Procalcitonin Beta HCG, Quant Urine Color Urine Appearance Urine pH Ur Specific [place] Urine Protein Urine Glucose (UA) Urine Ketones Urine Blood Urine Nitrite Ur Leukocyte Esterase Urine RBC Urine WBC Ur Squamous Epith Cells Urine Bacteria Hyaline Casts Nasal Screen MRSA (PCR) NEGATIVE Nasal S. aureus Screen NEGATIVE Nasal MRSA/S.aureus Interp SEE NOTE Vancomycin Trough 11.9 Random Vancomycin Respiratory Panel Soares See Note Adenovirus (Rapid PCR) Not Detected B.pert (TEM-PCR) Not Detected B.parapertussis DNA PCR Not Detected C. pneumoniae DNA (PCR) Not Detected Coronavirus OC43 (PCR) Not Detected Coronavirus HKU1 (PCR) Not Detected Coronavirus 229E (PCR) Not Detected Coronavirus NL63 (PCR) Not Detected Human Metapneumovir PCR Not Detected Influenza A (RT-PCR) Not Detected Influenza A (H1) PCR Not Detected Influ A () PCR Not Detected Influenza A (H3) PCR Not Detected Influenza Type A (PCR) Influenza B (RT-PCR) Not Detected Influenza Type B (PCR) M. pneumoniae (PCR) Not Detected Parainfluenza 1 (PCR) Not Detected Parainfluenza 2 (PCR) Not Detected Parainfluenza 3 (PCR) Not Detected Parainfluenza 4 (PCR) Not Detected RSV (PCR) Not Detected RSV RNA Qual (PCR) Entero/Rhino (PCR) Not Detected SARS-CoV-2 RNA (RT-PCR) Not Detected 11/20/24 11/20/24 11/20/24 06:19 06:24 14:01 WBC RBC Hgb Hct MCV MCH MCHC RDW Plt Count MPV Immature Gran % (Auto) Neut % (Auto) Lymph % (Auto) [place] % (Auto) Eos % (Auto) Baso % (Auto) Lymph # (Auto) [place] # (Auto) Eos # (Auto) Baso # (Auto) Abs Immat Gran (auto) Absolute Neuts (auto) Absolute Nucleated RBC Nucleated RBC % (auto) ESR VBG pH 7.39 VBG pCO2 45 VBG pO2 54 VBG HCO3 27 H VBG O2 Saturation 88.0 VBG Base Excess 2.5 Sodium Potassium Chloride Carbon Dioxide Anion Gap BUN Creatinine 0.42 L Estim Creat Clear Calc 235.1 Estimated GFR > 60 Random Glucose Lactic Acid Calcium Magnesium Total Bilirubin AST ALT Alkaline Phosphatase Troponin I High Sens C-Reactive Protein Total Protein Albumin Procalcitonin Beta HCG, Quant Urine Color Urine Appearance Urine pH Ur Specific [place] Urine Protein Urine Glucose (UA) Urine Ketones Urine Blood Urine Nitrite Ur Leukocyte Esterase Urine RBC Urine WBC Ur Squamous Epith Cells Urine Bacteria Hyaline Casts Nasal Screen MRSA (PCR) Nasal S. aureus Screen Nasal MRSA/S.aureus Interp Vancomycin Trough 20.7 H Random Vancomycin Respiratory Panel Soares Adenovirus (Rapid PCR) B.pert (TEM-PCR) B.parapertussis DNA PCR C. pneumoniae DNA (PCR) Coronavirus OC43 (PCR) Coronavirus HKU1 (PCR) Coronavirus 229E (PCR) Coronavirus NL63 (PCR) Human Metapneumovir PCR Influenza A (RT-PCR) Influenza A (H1) PCR Influ A (H1/09) PCR Influenza A (H3) PCR Influenza Type A (PCR) Influenza B (RT-PCR) Influenza Type B (PCR) M. pneumoniae (PCR) Parainfluenza 1 (PCR) Parainfluenza 2 (PCR) Parainfluenza 3 (PCR) Parainfluenza 4 (PCR) RSV (PCR) RSV RNA Qual (PCR) Entero/Rhino (PCR) SARS-CoV-2 RNA (RT-PCR) 11/21/24 11/21/24 11/22/24 07:11 07:12 07:08 WBC RBC Hgb Hct MCV MCH MCHC RDW Plt Count MPV Immature Gran % (Auto) Neut % (Auto) Lymph % (Auto) [place] % (Auto) Eos % (Auto) Baso % (Auto) Lymph # (Auto) [place] # (Auto) Eos # (Auto) Baso # (Auto) Abs Immat Gran (auto) Absolute Neuts (auto) Absolute Nucleated RBC Nucleated RBC % (auto) ESR VBG pH VBG pCO2 VBG pO2 VBG HCO3 VBG O2 Saturation VBG Base Excess Sodium Potassium Chloride Carbon Dioxide Anion Gap BUN Creatinine 0.48 L 0.56 Estim Creat Clear Calc 205.7 176.3 Estimated GFR > 60 > 60 Random Glucose Lactic Acid Calcium Magnesium Total Bilirubin AST ALT Alkaline Phosphatase Troponin I High Sens C-Reactive Protein Total Protein Albumin Procalcitonin Beta HCG, Quant Urine Color Urine Appearance Urine pH Ur Specific [place] Urine Protein Urine Glucose (UA) Urine Ketones Urine Blood Urine Nitrite Ur Leukocyte Esterase Urine RBC Urine WBC Ur Squamous Epith Cells Urine Bacteria Hyaline Casts Nasal Screen MRSA (PCR) Nasal S. aureus Screen Nasal MRSA/S.aureus Interp Vancomycin Trough 15.2 Random Vancomycin 12.8 L Respiratory Panel Soares Adenovirus (Rapid PCR) B.pert (TEM-PCR) B.parapertussis DNA PCR C. pneumoniae DNA (PCR) Coronavirus OC43 (PCR) Coronavirus HKU1 (PCR) Coronavirus 229E (PCR) Coronavirus NL63 (PCR) Human Metapneumovir PCR Influenza A (RT-PCR) Influenza A (H1) PCR Influ A (H1/09) PCR Influenza A (H3) PCR Influenza Type A (PCR) Influenza B (RT-PCR) Influenza Type B (PCR) M. pneumoniae (PCR) Parainfluenza 1 (PCR) Parainfluenza 2 (PCR) Parainfluenza 3 (PCR) Parainfluenza 4 (PCR) RSV (PCR) RSV RNA Qual (PCR) Entero/Rhino (PCR) SARS-CoV-2 RNA (RT-PCR) Narrative Narrative: EKG 11/21/24 Vent. Rate : 109 BPM Atrial Rate : 109 BPM P-R Int : 146 ms QRS Dur : 108 ms QT Int : 332 ms P-R-T Axes : 29 0 7 degrees QTcB Int : 447 ms Sinus tachycardia Cannot rule out Anterior infarct , age undetermined Nonspecific ST and T wave abnormality Abnormal ECG When compared with ECG of 14-Mar-2020 12:22, No significant change was found Airway Mallampati Class: II TM Dist: >3cm Neck ROM: Limited (2/2 trach) Loose/Missing/Broken Teeth: No (wire on bottom ) Heart: RRR Lungs: CTAB
--- NOTE | 2024-11-22 15:25 | HO.PM.IMPN ---
Subjective Subjective Date of Service: 11/22/24 Interval History: Minimal improvement overnight however no regression. Able to speak in full sentences with trach cap Review of Systems Denies chest pain Denies nausea vomiting diarrhea Admits to shortness of breath that is minimally improved since admission Denies fever chills Physical Exam Vital Signs: Vital Signs: Last Vital Signs Temp 97.1 F 11/22/24 11:39 Pulse 76 11/22/24 11:39 Resp 20 11/22/24 11:39 BP 119/58 L 11/22/24 11:39 Pulse Ox 99 11/22/24 11:39 O2 Del Method Trach Collar 11/22/24 11:39 O2 Flow Rate 6 11/22/24 11:39 FiO2 28 11/20/24 19:52 Oxygen Flow Rate 5 11/20/24 19:52 BMI result Body Mass Index 42.9 Const: Other: Awake alert no acute distress. Speaking in full sentences with trach tab in Resp: Other: Diminished at bases with scattered expiratory wheezes throughout Cardio: Other: No S4; positive S1-S2; no S3 murmurs rubs or gallops GI: Other: Soft nontender nondistended normoactive bowel sounds Extrem: Other: No edema bilaterally Objective Data Active Medications Acetaminophen (Acetaminophen 325 Mg Tablet) 650 mg PO Q6H PRN PRN Reason: Pain, Mild 1-3,fever,headache Last Admin: 11/21/24 23:10 Dose: 650 mg Documented By: AHSAN Calcium Carbonate (Calcium Carbonate 750 Mg Tab.Chew) 750 mg PO Q4H PRN PRN Reason: Heartburn Piperacillin Sod/Tazobactam (Sod 3.375 gm/ Sodium Chloride) 50 mls @ 100 mls/hr IV Q6H [facility] Last Infusion: 11/22/24 14:25 Dose: Infused Documented By: SHAILESH Vancomycin HCl 1,500 mg/ (Sodium Chloride) 500 mls @ 333.333 mls/hr IV Q12H [facility] Last Infusion: 11/22/24 10:35 Dose: Infused Documented By: SHAILESH Levalbuterol HCl (Levalbuterol Hcl 1.25 Mg/3 Ml Vial.Neb) 1.25 mg INHALE Q4H [facility] Last Admin: 11/22/24 11:29 Dose: 1.25 mg Documented By: HO.GLUKHOY Magnesium Hydroxide (Milk Of Magnesia 30 Ml Oral.Susp) 30 ml PO DAILY PRN PRN Reason: Constipation Melatonin (Melatonin 3 Mg Tablet) 6 mg PO BEDTIME PRN PRN Reason: Insomnia Methylprednisolone Sodium Succinate (Methylprednisolone Sod Succ 125 Mg/2 Ml Vial) 60 mg IVPUSH Q6H [facility] Last Admin: 11/22/24 12:43 Dose: 60 mg Documented By: SHAILESH Ondansetron HCl (Ondansetron Hcl 4 Mg/2 Ml Vial) 4 mg IVPUSH Q8H PRN PRN Reason: Nausea and Vomiting Pharmacy Consult (Consult Rx Vancomycin Dosing) 1 each MISCELLANE DAILY PRN PRN Reason: Consult order Sodium Chloride (0.9 % Sodium Chloride Flush 3 Ml Syringe) 3 ml IVFLUSH QSHIFT [facility] Last Admin: 11/22/24 09:17 Dose: 3 ml Documented By: SHAILESH Labs 11/18/24 12:37 11/22/24 07:08 Labs: Laboratory Results - last 24 hr 11/22/24 07:08 Estim Creat Clear Calc 176.3 Estimated GFR > 60 Vancomycin Trough 15.2 Assessment and Plan (1) Pneumonia, viral: Status: Acute (2) Asthma: Status: Acute Plan 34yo F with 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 Good response -supplemental O2, wean as tolerated -NPO after midnight for bronch in a.m. Lovenox Full code dispo - eventual home Quality Stroke Does the patient have a stroke diagnosis?: No VTE Prior VTE?: No VTE Risk Level:: Medical - moderate - high VTE Device Contraindication: N/A - Device Ordered VTE Drug Contraindication: N/A - Med Ordered
--- NOTE | 2024-11-22 16:18 | MHC.CM.PN ---
EMR reviewed and per MD rounds, pt is not medically cleared for discharge due to management of acute hypoxic respiratory failure due to pneumonia/asthma exacerbation. Pt will be getting a bronch tomorrow am.
[2024-11-22 17:28] LABS: Strep Pneumo Ag urine Not Detected (Not Detected)
--- NOTE | 2024-11-22 17:55 | P.CDIM_ITS ---
PROVIDER RESPONSE TEXT: To clarify, the appropriate diagnosis supported by the clinical indicators: Mild persistent: with exacerbation QUERY TEXT: PHYSICIAN'S DOCUMENTATION REQUEST Date of Query: 11/21/2024 12:09 PM EDT Patient Name: Jessica Salvador Admit Date: 11/18/2024 Dear Leopoldo Law DO, A review of the medical record indicates additional documentation may be needed. Please review below and update the documentation accordingly. The diagnosis of asthma was documented in the record on 11/20/24. Additional clinical indicators from the record include: Acute hypoxic respiratory failure due to pneumonia/asthma exacerbation -IV Vancomycin/IV Piperacillin-tazobactam steroid and supplemental oxygen Based on the above, please clarify in the Progress Notes further specificity regarding the type and acuity of the asthma: Mild intermittent Please specify if with or without acute exacerbation or status asthmaticus Mild persistent Please specify if with or without acute exacerbation or status asthmaticus Moderate persistent Please specify if with or without acute exacerbation or status asthmaticus Severe persistent Please specify if with or without acute exacerbation or status asthmaticus Exercise induced Please specify if with or without acute exacerbation or status asthmaticus Chronic obstructive asthma and indicate if with acute lower respiratory infection Please specify if with or without acute exacerbation or status asthmaticus Asthma with underlying COPD and indicate if with acute lower respiratory infection Please specify if with or without acute exacerbation or status asthmaticus Other (explain) Clinically unable to determine (explain) Thank you, Ju Rollins RN Use of terms such as suspected, likely, concern for, or probable (associated with a specific diagnosis that is being evaluated, monitored, or treated as if it exists) are acceptable and can be coded in the inpatient setting, when documented at the time of discharge. Please use your independent medical judgment in providing your response. THIS QUERY IS PART OF THE PERMANENT MEDICAL RECORD
--- NOTE | 2024-11-22 17:55 | P.CDIM_ITS ---
PROVIDER RESPONSE TEXT: To clarify, the appropriate diagnosis supported by the clinical indicators: Overweight QUERY TEXT: PHYSICIAN'S DOCUMENTATION REQUEST Date of Query: 11/21/2024 12:12 PM EDT Patient Name: Jessica Salvador Admit Date: 11/18/2024 Dear Leopoldo Law DO, A review of the medical record indicates additional documentation may be needed. Please review below and update the documentation accordingly. Clinical Indicators: Height: ( ) 5'4 Weight: ( ) 113.4 kg BMI: ( ) 42.9 Other Clinical Notes Supporting Significance of the BMI: none If possible, please provide an associated diagnosis related to the abnormal BMI, such as: Overweight Obesity Due to excess calories Obesity Drug induced Obesity Due to other cause Specify the other cause Severe or Morbid Obesity With alveolar hypoventilation Severe or Morbid Obesity Without alveolar hypoventilation BMI is not significant Other (explain) Clinically unable to determine (explain) Thank you, Ju Rollins RN Use of terms such as suspected, likely, concern for, or probable (associated with a specific diagnosis that is being evaluated, monitored, or treated as if it exists) are acceptable and can be coded in the inpatient setting, when documented at the time of discharge. Please use your independent medical judgment in providing your response. THIS QUERY IS PART OF THE PERMANENT MEDICAL RECORD
[2024-11-23] VITALS (11 sets, daily range): BP systolic 107–162; BP diastolic 79–97; PULSE 52–83; RESP 16–20; TEMP 36.2–36.8; O2SAT 85–100
[2024-11-23 07:14] LABS: MANUAL DIFF FLAG NO
[2024-11-23 07:17] LABS: Hematocrit 32.9 % (37.0-47.0); Hemoglobin 11.8 g/dl (12.0-16.0); Imm Gran Abs Auto 0.14 X10*3/uL (0.00-0.03); Imm Gran Pct Auto 1.4 % (0.0-0.4); Lymphocytes Absolute Auto 0.7 X10*3/uL (1.2-4.9); Mean Corpuscular HGB Conc 35.9 g/dl (31.0-35.0); Mean Corpuscular Hemoglobin 31.7 pg (27.0-33.0); Mean Corpuscular Volume 88.4 fL (80.0-98.0); NRBC Abs Auto 0.000 X10*3/uL (0.0-0.012); NRBC Pct Auto 0.0 /100WBC (0.0-0.2); Platelet Count 230 X10*3/uL (160-400); Red Blood Count 3.72 X10*6/uL (4.20-5.50); White Blood Count 10.0 X10*3/uL (4.8-10.8)
[2024-11-23 07:31] LABS: Alanine Aminotransferase 58 U/L (0-31); Albumin Level 3.6 g/dL (3.5-5.0); Alkaline Phosphatase 50 U/L (39-117); Anion Gap 13 (12-20); Aspartate Amino Transferase 37 U/L (5-31); Blood Urea Nitrogen 16 mg/dL (9-16); Calcium 8.4 mg/dL (8.4-10.2); Carbon Dioxide 25 mmol/L (22-29); Chloride 108 mmol/L (96-108); Creatinine Clr Calc Pharmacy 151.9; Estimated Glomerular Filt Rate > 60; Potassium 4.4 mmol/L (3.3-5.1); Sodium 142 mmol/L (135-145); Total Protein 6.6 g/dL (6.5-8.0)
--- NOTE | 2024-11-23 07:39 | HE.PHANOTE ---
Addendum entered by Janice Corral [facility] 11/23/24 07:46: New dose to begin at 1300, Trough to be drawn 11/24 @ 1100. Original Note: Re: Martine Significant renal decline. Trough returned at 19.7. Dose to be reduced and held for an extra hour based on predictions. New dose is 1250mg q12h with predicted AUC 534, predicted trough 14.8. Next trough 11/24 @ 0800.
[2024-11-23] MEDS: 0.9 % Sodium Chloride Flush 3 ML SYRINGE IVFLUSH (08:57)
--- NOTE | 2024-11-23 10:25 | P.CONAN_ITS ---
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 (Acute) Tracheobronchitis (Acute) Chest pain (Acute) COVID-19 (Acute) Pneumonia, viral (Acute) Past Medical History Medical History Hemoptysis Bronchopneumonia Dysphagia GERD (gastroesophageal reflux disease) Hypoxia Tachycardia Chronic respiratory failure Chest pain Pneumonia delivery due to maternal disorder, delivered, curr hospitaliz 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 Functional capacity: independent ambulation Patient : No Family History Family history of problems with anesthesia: No Surgical History History of Problems with Anesthesia: No Social History Social History Household Members: Family Housing: House Do you presently have visiting nurse or other home services: No Alcohol intake: never Patient Tobacco Use Status: Never used Tobacco Second Hand Smoke Exposure: No Advance Directives Date on File: 11/18/24 service: No Current occupational status: disabled Current occupation: right hand dominant Meds Allergies Allergy/AdvReac Type Severity Reaction Status Date / Time prednisone (PREDNISONE) Allergy Severe Difficulty Verified 11/18/24 10:42 Breathing Active Medications: Current Medications Acetaminophen (Acetaminophen 325 Mg Tablet) 650 mg PO Q6H PRN PRN Reason: Pain, Mild 1-3,fever,headache Last Admin: 11/21/24 23:10 Dose: 650 mg Calcium Carbonate (Calcium Carbonate 750 Mg Tab.Chew) 750 mg PO Q4H PRN PRN Reason: Heartburn Piperacillin Sod/Tazobactam (Sod 3.375 gm/ Sodium Chloride) 50 mls @ 100 mls/hr IV Q6H [facility] Last Infusion: 11/23/24 06:22 Dose: Infused Vancomycin HCl 1,250 mg/ (Sodium Chloride) 250 mls @ 166.667 mls/hr IV Q12H [facility] Levalbuterol HCl (Levalbuterol Hcl 1.25 Mg/3 Ml Vial.Neb) 1.25 mg INHALE Q4H [facility] Last Admin: 11/23/24 08:10 Dose: 1.25 mg Magnesium Hydroxide (Milk Of Magnesia 30 Ml Oral.Susp) 30 ml PO DAILY PRN PRN Reason: Constipation Melatonin (Melatonin 3 Mg Tablet) 6 mg PO BEDTIME PRN PRN Reason: Insomnia Methylprednisolone Sodium Succinate (Methylprednisolone Sod Succ 125 Mg/2 Ml Vial) 60 mg IVPUSH Q6H [facility] Last Admin: 11/23/24 05:56 Dose: 60 mg Ondansetron HCl (Ondansetron Hcl 4 Mg/2 Ml Vial) 4 mg IVPUSH Q8H PRN PRN Reason: Nausea and Vomiting Pharmacy Consult (Consult Rx Vancomycin Dosing) 1 each MISCELLANE DAILY PRN PRN Reason: Consult order Sodium Chloride (0.9 % Sodium Chloride Flush 3 Ml Syringe) 3 ml IVFLUSH QSHIFT [facility] Last Admin: 11/22/24 22:02 Dose: 3 ml Home Medications ?Medication ?Instructions ?Recorded ?Confirmed ?Last Taken ?Type Oxygen Home Use 04/04/21 05/20/21 Unknown H istory nebulizers 11/11/22 Unknown History Exam Height,Weight and Vital Signs: Height 5 ft 4 in Weight 113.4 kg Last Vital Signs Temp 97.1 F 11/23/24 07:08 Pulse 67 11/23/24 08:44 Resp 18 11/23/24 08:44 BP 162/79 H 11/23/24 07:08 Pulse Ox 96 11/23/24 07:08 O2 Del Method Trach Collar 11/23/24 07:08 O2 Flow Rate 5 11/23/24 07:08 FiO2 28 11/20/24 19:52 Oxygen Flow Rate 5 11/20/24 19:52 Pertinent Lab Results Pertinent Lab Results: .Laboratory Tests 11/18/24 11/18/24 11/18/24 12:37 12:59 15:36 WBC 11.0 H RBC 4.23 Hgb 11.7 L Hct 35.4 L MCV 83.7 MCH 27.7 MCHC 33.1 RDW 14.9 Plt Count 188 MPV 9.9 Immature Gran % (Auto) 0.3 Neut % (Auto) 86.5 H Lymph % (Auto) 6.8 L [place] % (Auto) 6.0 Eos % (Auto) 0.1 Baso % (Auto) 0.3 Lymph # (Auto) 0.8 L [place] # (Auto) 0.7 Eos # (Auto) 0.0 Baso # (Auto) 0.0 Abs Immat Gran (auto) 0.03 Absolute Neuts (auto) 9.5 H Absolute Nucleated RBC 0.000 Nucleated RBC % (auto) 0.0 ESR 49 H VBG pH VBG pCO2 VBG pO2 VBG HCO3 VBG O2 Saturation VBG Base Excess Sodium 141 Potassium 3.9 Chloride 106 Carbon Dioxide 27 Anion Gap 12 BUN 11 Creatinine 0.40 L Estim Creat Clear Calc 241.1 Estimated GFR > 60 Random Glucose 96 Fasting Glucose Lactic Acid 0.9 Calcium 9.0 Magnesium 1.7 Total Bilirubin 0.3 AST 28 ALT 15 Alkaline Phosphatase 63 Troponin I High Sens < 2.7 C-Reactive Protein 5.84 H Total Protein 7.1 Albumin 4.0 Procalcitonin 0.04 Beta HCG, Quant < 2 Urine Color Yellow Urine Appearance Clear Urine pH 7.0 Ur Specific [place] >= 1.030 H Urine Protein Trace Urine Glucose (UA) Negative Urine Ketones Negative Urine Blood Small (1+) H Urine Nitrite Negative Ur Leukocyte Esterase Negative Urine RBC >20 H Urine WBC 0-5 Ur Squamous Epith Cells 3-5 Urine Bacteria 1+ Hyaline Casts 0-2 Nasal Screen MRSA (PCR) Nasal S. aureus Screen Nasal MRSA/S.aureus Interp Vancomycin Trough Random Vancomycin Respiratory Panel Soares Adenovirus (Rapid PCR) B.pert (TEM-PCR) B.parapertussis DNA PCR C. pneumoniae DNA (PCR) Coronavirus OC43 (PCR) Coronavirus HKU1 (PCR) Coronavirus 229E (PCR) Coronavirus NL63 (PCR) Human Metapneumovir PCR Influenza A (RT-PCR) Influenza A (H1) PCR Influ A (H1/09) PCR Influenza A (H3) PCR Influenza Type A (PCR) NEGATIVE Influenza B (RT-PCR) Influenza Type B (PCR) NEGATIVE M. pneumoniae (PCR) Parainfluenza 1 (PCR) Parainfluenza 2 (PCR) Parainfluenza 3 (PCR) Parainfluenza 4 (PCR) RSV (PCR) RSV RNA Qual (PCR) NEGATIVE Entero/Rhino (PCR) SARS-CoV-2 RNA (RT-PCR) NEGATIVE Ur Strep pneumoniae Ag 11/18/24 11/19/24 11/19/24 22:48 07:01 07:37 WBC RBC Hgb Hct MCV MCH MCHC RDW Plt Count MPV Immature Gran % (Auto) Neut % (Auto) Lymph % (Auto) [place] % (Auto) Eos % (Auto) Baso % (Auto) Lymph # (Auto) [place] # (Auto) Eos # (Auto) Baso # (Auto) Abs Immat Gran (auto) Absolute Neuts (auto) Absolute Nucleated RBC Nucleated RBC % (auto) ESR VBG pH VBG pCO2 VBG pO2 VBG HCO3 VBG O2 Saturation VBG Base Excess Sodium Potassium Chloride Carbon Dioxide Anion Gap BUN Creatinine 0.40 L Estim Creat Clear Calc 246.8 Estimated GFR > 60 Random Glucose Fasting Glucose Lactic Acid Calcium Magnesium Total Bilirubin AST ALT Alkaline Phosphatase Troponin I High Sens C-Reactive Protein Total Protein Albumin Procalcitonin Beta HCG, Quant Urine Color Urine Appearance Urine pH Ur Specific [place] Urine Protein Urine Glucose (UA) Urine Ketones Urine Blood Urine Nitrite Ur Leukocyte Esterase Urine RBC Urine WBC Ur Squamous Epith Cells Urine Bacteria Hyaline Casts Nasal Screen MRSA (PCR) NEGATIVE Nasal S. aureus Screen NEGATIVE Nasal MRSA/S.aureus Interp SEE NOTE Vancomycin Trough Random Vancomycin Respiratory Panel Soares See Note Adenovirus (Rapid PCR) Not Detected B.pert (TEM-PCR) Not Detected B.parapertussis DNA PCR Not Detected C. pneumoniae DNA (PCR) Not Detected Coronavirus OC43 (PCR) Not Detected Coronavirus HKU1 (PCR) Not Detected Coronavirus 229E (PCR) Not Detected Coronavirus NL63 (PCR) Not Detected Human Metapneumovir PCR Not Detected Influenza A (RT-PCR) Not Detected Influenza A (H1) PCR Not Detected Influ A (H1/09) PCR Not Detected Influenza A (H3) PCR Not Detected Influenza Type A (PCR) Influenza B (RT-PCR) Not Detected Influenza Type B (PCR) M. pneumoniae (PCR) Not Detected Parainfluenza 1 (PCR) Not Detected Parainfluenza 2 (PCR) Not Detected Parainfluenza 3 (PCR) Not Detected Parainfluenza 4 (PCR) Not Detected RSV (PCR) Not Detected RSV RNA Qual (PCR) Entero/Rhino (PCR) Not Detected SARS-CoV-2 RNA (RT-PCR) Not Detected Ur Strep pneumoniae Ag Not Detected 11/19/24 11/20/24 11/20/24 10:55 06:19 06:24 WBC RBC Hgb Hct MCV MCH MCHC RDW Plt Count MPV Immature Gran % (Auto) Neut % (Auto) Lymph % (Auto) [place] % (Auto) Eos % (Auto) Baso % (Auto) Lymph # (Auto) [place] # (Auto) Eos # (Auto) Baso # (Auto) Abs Immat Gran (auto) Absolute Neuts (auto) Absolute Nucleated RBC Nucleated RBC % (auto) ESR VBG pH 7.39 VBG pCO2 45 VBG pO2 54 VBG HCO3 27 H VBG O2 Saturation 88.0 VBG Base Excess 2.5 Sodium Potassium Chloride Carbon Dioxide Anion Gap BUN Creatinine 0.42 L Estim Creat Clear Calc 235.1 Estimated GFR > 60 Random Glucose Fasting Glucose Lactic Acid Calcium Magnesium Total Bilirubin AST ALT Alkaline Phosphatase Troponin I High Sens C-Reactive Protein Total Protein Albumin Procalcitonin Beta HCG, Quant Urine Color Urine Appearance Urine pH Ur Specific [place] Urine Protein Urine Glucose (UA) Urine Ketones Urine Blood Urine Nitrite Ur Leukocyte Esterase Urine RBC Urine WBC Ur Squamous Epith Cells Urine Bacteria Hyaline Casts Nasal Screen MRSA (PCR) Nasal S. aureus Screen Nasal MRSA/S.aureus Interp Vancomycin Trough 11.9 Random Vancomycin Respiratory Panel Soares Adenovirus (Rapid PCR) B.pert (TEM-PCR) B.parapertussis DNA PCR C. pneumoniae DNA (PCR) Coronavirus OC43 (PCR) Coronavirus HKU1 (PCR) Coronavirus 229E (PCR) Coronavirus NL63 (PCR) Human Metapneumovir PCR Influenza A (RT-PCR) Influenza A (H1) PCR Influ A (H1/09) PCR Influenza A (H3) PCR Influenza Type A (PCR) Influenza B (RT-PCR) Influenza Type B (PCR) M. pneumoniae (PCR) Parainfluenza 1 (PCR) Parainfluenza 2 (PCR) Parainfluenza 3 (PCR) Parainfluenza 4 (PCR) RSV (PCR) RSV RNA Qual (PCR) Entero/Rhino (PCR) SARS-CoV-2 RNA (RT-PCR) Ur Strep pneumoniae Ag 11/20/24 11/21/24 11/21/24 14:01 07:11 07:12 WBC RBC Hgb Hct MCV MCH MCHC RDW Plt Count MPV Immature Gran % (Auto) Neut % (Auto) Lymph % (Auto) [place] % (Auto) Eos % (Auto) Baso % (Auto) Lymph # (Auto) [place] # (Auto) Eos # (Auto) Baso # (Auto) Abs Immat Gran (auto) Absolute Neuts (auto) Absolute Nucleated RBC Nucleated RBC % (auto) ESR VBG pH VBG pCO2 VBG pO2 VBG HCO3 VBG O2 Saturation VBG Base Excess Sodium Potassium Chloride Carbon Dioxide Anion Gap BUN Creatinine 0.48 L Estim Creat Clear Calc 205.7 Estimated GFR > 60 Random Glucose Fasting Glucose Lactic Acid Calcium Magnesium Total Bilirubin AST ALT Alkaline Phosphatase Troponin I High Sens C-Reactive Protein Total Protein Albumin Procalcitonin Beta HCG, Quant Urine Color Urine Appearance Urine pH Ur Specific [place] Urine Protein Urine Glucose (UA) Urine Ketones Urine Blood Urine Nitrite Ur Leukocyte Esterase Urine RBC Urine WBC Ur Squamous Epith Cells Urine Bacteria Hyaline Casts Nasal Screen MRSA (PCR) Nasal S. aureus Screen Nasal MRSA/S.aureus Interp Vancomycin Trough 20.7 H Random Vancomycin 12.8 L Respiratory Panel Soares Adenovirus (Rapid PCR) B.pert (TEM-PCR) B.parapertussis DNA PCR C. pneumoniae DNA (PCR) Coronavirus OC43 (PCR) Coronavirus HKU1 (PCR) Coronavirus 229E (PCR) Coronavirus NL63 (PCR) Human Metapneumovir PCR Influenza A (RT-PCR) Influenza A (H1) PCR Influ A (H1/09) PCR Influenza A (H3) PCR Influenza Type A (PCR) Influenza B (RT-PCR) Influenza Type B (PCR) M. pneumoniae (PCR) Parainfluenza 1 (PCR) Parainfluenza 2 (PCR) Parainfluenza 3 (PCR) Parainfluenza 4 (PCR) RSV (PCR) RSV RNA Qual (PCR) Entero/Rhino (PCR) SARS-CoV-2 RNA (RT-PCR) Ur Strep pneumoniae Ag 11/22/24 11/23/24 07:08 06:58 WBC 10.0 RBC 3.72 L Hgb 11.8 L Hct 32.9 L MCV 88.4 MCH 31.7 MCHC 35.9 H RDW 15.7 Plt Count 230 MPV 10.3 Immature Gran % (Auto) 1.4 H Neut % (Auto) 87.6 H Lymph % (Auto) 7.1 L [place] % (Auto) 3.7 Eos % (Auto) 0.0 Baso % (Auto) 0.2 Lymph # (Auto) 0.7 L [place] # (Auto) 0.4 Eos # (Auto) 0.0 Baso # (Auto) 0.0 Abs Immat Gran (auto) 0.14 H Absolute Neuts (auto) 8.8 H Absolute Nucleated RBC 0.000 Nucleated RBC % (auto) 0.0 ESR VBG pH VBG pCO2 VBG pO2 VBG HCO3 VBG O2 Saturation VBG Base Excess Sodium 142 Potassium 4.4 Chloride 108 Carbon Dioxide 25 Anion Gap 13 BUN 16 Creatinine 0.56 0.65 Estim Creat Clear Calc 176.3 151.9 Estimated GFR > 60 > 60 Random Glucose Fasting Glucose 124 H Lactic Acid Calcium 8.4 D Magnesium Total Bilirubin 0.2 AST 37 H ALT 58 H Alkaline Phosphatase 50 Troponin I High Sens C-Reactive Protein Total Protein 6.6 Albumin 3.6 Procalcitonin Beta HCG, Quant Urine Color Urine Appearance Urine pH Ur Specific [place] Urine Protein Urine Glucose (UA) Urine Ketones Urine Blood Urine Nitrite Ur Leukocyte Esterase Urine RBC Urine WBC Ur Squamous Epith Cells Urine Bacteria Hyaline Casts Nasal Screen MRSA (PCR) Nasal S. aureus Screen Nasal MRSA/S.aureus Interp Vancomycin Trough 15.2 Random Vancomycin 19.7 Respiratory Panel Soares Adenovirus (Rapid PCR) B.pert (TEM-PCR) B.parapertussis DNA PCR C. pneumoniae DNA (PCR) Coronavirus OC43 (PCR) Coronavirus HKU1 (PCR) Coronavirus 229E (PCR) Coronavirus NL63 (PCR) Human Metapneumovir PCR Influenza A (RT-PCR) Influenza A (H1) PCR Influ A (H1/09) PCR Influenza A (H3) PCR Influenza Type A (PCR) Influenza B (RT-PCR) Influenza Type B (PCR) M. pneumoniae (PCR) Parainfluenza 1 (PCR) Parainfluenza 2 (PCR) Parainfluenza 3 (PCR) Parainfluenza 4 (PCR) RSV (PCR) RSV RNA Qual (PCR) Entero/Rhino (PCR) SARS-CoV-2 RNA (RT-PCR) Ur Strep pneumoniae Ag Airway Mallampati Class: I TM Dist: >3cm Neck ROM: Full (trach in situ) Heart: RRR Lungs: CTA Assessment and Plan Assessment Anesthesia Assessment: Anesthesia Plan Discussed and Chart Reviewed Final Anesthetic Review Family History of Problems with Anesthesia: No History of Problems with Anesthesia: No NPO: Yes ASA Class: III Final Preanesthetic Review: Meds/Allgs Chart Reviewed, Consent Obtained/Reviewed and Anes Risks/Benef Reviewed Patient Risk: Intermediate Procedure Risk: Intermediate Anesthetic Plan Anesthetic Plan: GA Disposition: Standard PACU
--- NOTE | 2024-11-23 10:50 | PC.NURSE ---
Patient arrived to preop with #[address] Site leaky, dressing covered in blood. IV removed, new IV placed, tolerated well. See documentation.
--- NOTE | 2024-11-23 11:01 | MHC.SHP ---
Pre-Procedural Eval Section A - 24 Hr Update-Section A only Date of Service: 11/23/24 The patient is an INPATIENT: Yes Section B - Complete if H&P > 30 days Chief Complaint: PNA Allergies: Allergies Allergy/AdvReac Type Severity Reaction Status Date / Time prednisone (PREDNISONE) Allergy Severe Difficulty Verified 11/23/24 10:50 Breathing Plan I have reviewed the history and physical and performed a pertinent physical examination on my patient. No changes have occurred unless specified. Time Spent With Patient Time: Total time managing care of this patient today ____ minutes.
--- NOTE | 2024-11-23 11:06 | P.HPSUR_ITS ---
Pre-Procedural Eval Section A - 24 Hr Update-Section A only Date of Service: 11/23/24 The patient is an INPATIENT: Yes Section B - Complete if H&P > 30 days Chief Complaint: PNA Details of Present Illness: worsening cough, hypoxia, admitted with RLL pne umonia Relevant Family History (Specify if Yes): No Relevant Social History: None Present Medications: see Short Stay Collaborative assessment Medical History: Significant History History of Previous Operations: Relevant previous surgery/procedure and date(s) Allergies: Allergies Allergy/AdvReac Type Severity Reaction Status Date / Time prednisone (PREDNISONE) Allergy Severe Difficulty Verified 11/23/24 10:50 Breathing Review of Systems Sugical H&P ROS: Negative: Respiratory (cough) and Yes, Specify: Constitution, Cardiovascular, Psychiatric, Hem-Onc, Allergic/Immunologic, Gastrointestinal, Genitourinary and Musculoskeletal Exam Surgical H&P Exam: Normal: Heart, Normal: Lungs, Normal: Extremities, Normal: Abdomen and Normal: Skin and Significant Findings: HEENT (trach) and Significant Findings: Neurological (braces) Plan Diagnosis/Plan: Change (plan for bronchoscopy with therapeutic cleaning to treat pneumonia) I have reviewed the history and physical and performed a pertinent physical examination on my patient. No changes have occurred unless specified. Time Spent With Patient Time: Total time managing care of this patient today ____ minutes.
--- NOTE | 2024-11-23 12:25 | PM.OP ---
Brief Operative Note Date of Service: 11/23/24 Pre-op diagnosis: pneumonia Procedure: bronchoscopy Surgeon: Rashaun Irwin MD Was an Reinsurance Accountant used for this Procedure?: No Estimated blood loss (mL): 0 Condition: stable Disposition: floor
--- NOTE | 2024-11-23 13:24 | P.DS_ITS ---
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 Has been coughing up green sputum since. Moving makes her extremely short of breath. Daughter is sick with a cold. No vomiting. No choking and and she is careful to eat very slowly. She was recently seen in the [facility] 10/15/24 and treated for pneumonia with doxycycline and amoxicillin-clavulanate. She saw her pulmonlogist, Dr Irwin, on 10/19/24 and was given a steroid taper. She recovered fully from that illness. She called EMS and was found to have SaO2 82% so was placed on 3L O2 and is currently saturating 91%. She was given levalbuterol, piperacillin-tazobactam and vancomycin. CTA of the chest showed RML PNA, infiltrates in the lingula and bilateral lower lobes, and mediastinal adenopathy. Hospital course Admitted to telemetry where monitor remained stable without acute dysrhythmias. She will be started on vanco and Zosyn. She was given methylprednisolone pulse dosing with DuoNebs. She continued to make slow progress and was seen by Dr. Irwin. On 11/23/2024 she underwent a bronchoscopy with good results (please see Dr. Irwin's detailed note) at this point in time Dr. Irwin feels she is medically acceptable for discharge and she is anxious to do the same. She will follow up with him as an outpatient Time Attestation Discharge Coordination Time (in mins): 35 Quality: Safe Use of Opioids Does Pt have an Active Cancer Diagnosis on the Problem List?: No Quality: Stroke Does the patient have a stroke diagnosis?: No Physical Exam Vital Signs: Vital Signs: Last Vital Signs Temp 97.4 F 11/23/24 12:00 Pulse 63 11/23/24 12:00 Resp 16 11/23/24 12:00 BP 150/86 H 11/23/24 12:00 Pulse Ox 85 L 11/23/24 12:00 O2 Del Method Humidified O2, Tr ach Collar 11/23/24 12:00 O2 Flow Rate 5 11/23/24 12:00 FiO2 28 11/23/24 12:00 Oxygen Flow Rate 5 11/20/24 19:52 BMI result Body Mass Index 42.9 Const: Other: Awake alert no acute distress. Speaking in full sentences with trach tab in Resp: Other: Diminished at bases with scattered expiratory wheezes throughout Cardio: Other: No S4; positive S1-S2; no S3 murmurs rubs or gallops GI: Other: Soft nontender nondistended normoactive bowel sounds Extrem: Other: No edema bilaterally DS: Data Data Completed and Pending Completed studies during hospitalization [Text1]: Procedures Respiratory Ventilation, 24-96 Consecutive Hours (03/14/20) Labs on day of discharge: Laboratory Results - last 24 hr 11/19/24 11/23/24 07:37 06:58 WBC 10.0 RBC 3.72 L Hgb 11.8 L Hct 32.9 L MCV 88.4 MCH 31.7 MCHC 35.9 H RDW 15.7 Plt Count 230 MPV 10.3 Immature Gran % (Auto) 1.4 H Neut % (Auto) 87.6 H Lymph % (Auto) 7.1 L [place] % (Auto) 3.7 Eos % (Auto) 0.0 Baso % (Auto) 0.2 Lymph # (Auto) 0.7 L [place] # (Auto) 0.4 Eos # (Auto) 0.0 Baso # (Auto) 0.0 Abs Immat Gran (auto) 0.14 H Absolute Neuts (auto) 8.8 H Absolute Nucleated RBC 0.000 Nucleated RBC % (auto) 0.0 Sodium 142 Potassium 4.4 Chloride 108 Carbon Dioxide 25 Anion Gap 13 BUN 16 Creatinine 0.65 Estim Creat Clear Calc 151.9 Estimated GFR > 60 Fasting Glucose 124 H Calcium 8.4 D Total Bilirubin 0.2 AST 37 H ALT 58 H Alkaline Phosphatase 50 Total Protein 6.6 Albumin 3.6 Random Vancomycin 19.7 Ur Strep pneumoniae Ag Not Detected Preliminary micro results at discharge 11/18/24 12:58 Blood Culture - Preliminary Blood - Venous No growth after 48 hours. 11/18/24 12:37 Blood Culture - Preliminary Blood - Venous No growth after 48 hours. Discharge Plan Discharge Anticipated Discharge Date/Time: 11/23/24 13:19 Patient Disposition: Home, Self-Care Discharge Diagnosis: Pneumonia Referrals: Jayshree Mishra MD [Primary Care Provider, Internal Medicine] - 1 Week Discharge Medications: New amoxicillin-pot clavulanate 875-125 mg tablet 1 tab PO BID Qty: 14 0RF cefuroxime axetil 500 mg tablet 500 mg PO BID 7 Days Qty: 14 0RF Continued (DME) Oxygen Home Use Kit See Rx Instructions .Route Rx Instructions: As directed (DME) nebulizers [facility] [place] [facility] See Rx Instructions .ROUTE Rx Instructions: As directed sodium chloride 3 % solution for nebulization 4 ml inhalation BID 30 Days Qty: 240 11RF levalbuterol HCl 1.25 mg/3 mL solution for nebulization 1.25 mg inhalation BID 30 Days Qty: 180 9RF Discharge Orders: Discharge Order (Routine); Ordered 11/23/24 Ordered By: Leopoldo Law Diet: Advance to usual diet Activity on Discharge: As tolerated Stand Alone Forms: Patient Portal Discharge page Print Language: Yi Care Plan Goals: Complete course of Augmentin and Ceftin as ordered. Resume all your normal meds including Decadron when you get home Health Concerns: Follow up with Dr. Irwin as scheduled Plan of Treatment: Resume trach mask at home at previous settings Assessment: See discharge summary
--- NOTE | 2024-11-23 14:18 | W.MHC.F2F ---
Service Date Service Date: 11/23/24 Encounter Date of encounter: 11/23/24 Encounter: Acute hospitalization Reasons for Services Signs and symptoms assessed: Longstanding tracheostomy; monitoring of respiratory status Reason for correction: medication management, teach disease management and other (Monitor respiratory status and assist on weaning back to pre-hospital levels of O2) Homebound: Leaving the home is medically contraindicated at this time without the asist of a device and/or another person due th the listed conditions above and below. Reason homebound: unsteady gait / fall risk and shortness of breath with minimal effort Certification: Based on the above findings, I certify that this patient is confined to the home and needs intermittent correction care, physical therapy and/or speech therapy, or continues to need occupational therapy. The patient is under my care, and I have initiated the establishment of the plan of care. The patient will be followed by a physician who will periodically review the plan of care. Time Spent With Patient Time: Total time managing care of this patient today ____ minutes.
--- NOTE | 2024-11-23 14:18 | MHC.CM.PN ---
Addendum entered by Hamida Mccoy RN 11/23/24 14:38: CLARIFICATION: PT IS NOT ON 5L CONT O2, PT WAS ON HUMIDIFICATION ONLY, HOME O2 EVAL COMPLETED AND PT DOES NOT QUALIFY FOR CONT O2, WILL RESUME O2 AT [facility], [facility] UPDATED AND NO NEED FOR SN. Original Note: IMM 11/23/24 DELIVERED TO BEDSIDE, PER [facility] LIAISON HER OUPT CM IS WORKING ON FLOOR HELPER/CARDIAC RN SERVICES FOR PT, PT REPORTS EVAL WAS DONE IN HOME PRIOR TO HOSPITAL ADMISSION, HOSPITALIST TO CONSULT RESPIRATORY PT IS NOW ON 5L O2 VIA TRACH AND WAS ONLY ON 2L AT [facility] PRIOR TO ADMIT, PT WILL RESUME W/APRIA AND WILL NEED LOANER TANK, NEW [facility] FOR SN AND PT'S FOR TRANSPORT.
--- NOTE | 2024-11-24 00:19 | OP_ITS ---
DATE OF SERVICE: 11/23/2024 SURGEON: Rashaun Irwin MD PREOPERATIVE DIAGNOSIS: Pneumonia. POSTOPERATIVE DIAGNOSIS: Pneumonia. PROCEDURE PERFORMED: Bronchoscopy with therapeutic cleaning and bronchial washings of the right lower lobe. ESTIMATED BLOOD LOSS: COMPLICATIONS: ANESTHESIA: MAC. ASSISTANTS: SPECIMENS: ASA CLASSIFICATION: III. DESCRIPTION OF PROCEDURE: After the patient was adequately sedated, the patient had a mask for oxygen and the bronchoscope was inserted with tracheostomy tube that she already had placed. The bronchoscope was navigated to the level of the trachea. The tracheal mucosa appeared normal. She did have some degree of tracheomalacia and . After instilling additional lidocaine, the bronchoscope was then navigated into the entire tracheobronchial tree . The patient did have some moderate degree of purulent secretions from the right lower lobes consistent with history of pneumonia. These were suctioned out. They were sent for culture. No evidence of any foreign bodies. Patient also has some component of bronchomalacia. No evidence of any bleeding. After the therapeutic cleaning of the airways, the bronchoscope was then removed. The total endoscope time 12 minutes. Patient tolerated the procedure well and subsequently went to recover at the PACU. No complications noted. SENIOR ANALYST DEVELOPER: None. Rashaun Irwin MD MR/MODL / [id number]
--- NOTE | 2024-12-06 11:11 | PC.NURSE ---
late nurse note for PRN tylenol that was given by this RN on 11/19/2024 at 1428 for pain score of 6/10. given med per patient request
== END 2024-11-23 16:00 | disposition home or self-care (01) | DRG 193 ==
LOC: HO.ED 16:12 → HO.EDOVER 17:37 → HO.IMC 19:35
PROVIDERS: Hospitalist; Admitting Provider Family Medicine; Emergency Provider Emergency Medicine; PCP Internal Medicine; Visit Provider Hospitalist
PROC: 0BJ08ZZ Inspection of Tracheobronchial Tree, Via Natural or Artificial Opening Endoscopic (ICD-10-PCS; CPT 31622; principal; 2024-11-23 11:00)
DX: J18.9 Pneumonia, unspecified organism (principal); J96.01 Acute respiratory failure with hypoxia; J45.31 Mild persistent asthma with (acute) exacerbation; Z68.41 Body mass index [BMI] 40.0-44.9, adult; Z99.81 Dependence on supplemental oxygen; J38.00 Paralysis of vocal cords and larynx, unspecified; G60.0 Hereditary motor and sensory neuropathy; E66.3 Overweight; Z71.3 Dietary counseling and surveillance; Z93.0 Tracheostomy status; Z20.822 Contact with and (suspected) exposure to COVID-19; Z79.899 Other long term (current) drug therapy
CPT/HCPCS: 31623; 36415; 71275; 74230; 80053; 80202; 81001; 82565; 82803; 83605; 83735; 84145; 84484; 84702; 85025; 85652; 86140; 87040; 87070; 87205; 87449; 87633; 87637; 87640; 87641; 87899; 92526; 92610; 92611; 93005; 94640; 99222; 99285; J0131; J0165; J1100; J1720; J2003; J2250; J2543; J2704; J2919; J3373; J3374; J7120; Q9967

== ENCOUNTER → 2024-11-18 11:52 | Outpatient (BNV) | payer OTHER, SELFPAY | PROVIDERS: Emergency Provider Emergency Medicine; PCP Internal Medicine; Visit Provider Radiology Diagnostic Radiology | DX: J18.1 Lobar pneumonia, unspecified organism (principal) | CPT/HCPCS: 71275 ==

== ENCOUNTER → 2024-11-18 11:53 | Outpatient (BNV) | payer OTHER, SELFPAY | PROVIDERS: Admitting Provider Family Medicine; Emergency Provider Emergency Medicine; PCP Internal Medicine; Visit Provider Internal Medicine | DX: R00.0 Tachycardia, unspecified (principal) | CPT/HCPCS: 93010 ==

== ENCOUNTER 2024-11-18 16:23 | Outpatient (BNV) | payer OTHER, SELFPAY | END 2024-11-20 06:45 | PROVIDERS: Admitting Provider Family Medicine; Emergency Provider Emergency Medicine; PCP Internal Medicine; Visit Provider Radiology Diagnostic Radiology | DX: R13.10 Dysphagia, unspecified (principal) | CPT/HCPCS: 74230 ==

== ENCOUNTER → 2024-11-18 16:23 | Outpatient (BNV) | payer OTHER, SELFPAY | PROVIDERS: Admitting Provider Family Medicine; Emergency Provider Emergency Medicine; PCP Internal Medicine; Visit Provider Internal Medicine Pulmonary Disease | DX: G60.0 Hereditary motor and sensory neuropathy (principal); Z93.0 Tracheostomy status; J96.01 Acute respiratory failure with hypoxia | CPT/HCPCS: 99222 ==

== ENCOUNTER → 2024-11-18 16:23 | Outpatient (BNV) | payer OTHER, SELFPAY | PROVIDERS: Admitting Provider Family Medicine; Emergency Provider Emergency Medicine; PCP Internal Medicine; Visit Provider Family Medicine | DX: J18.0 Bronchopneumonia, unspecified organism (principal) | CPT/HCPCS: 99223; 99232; 99239; G0180 ==

== ENCOUNTER 2024-11-27 12:17 | Emergency (ER) | payer OTHER, SELFPAY ==
--- OUTSIDE RECORDS SUMMARY | 2024-06-28 06:15 | XMS_ITS ---
Author Organization [facility] Address [address] [place] [address] Care Team Providers Care Clerical Dentist Assistant Name Role Phone MICHELINE HARRINGTON Unavailable [phone] REASON FOR VISIT 6 week f/u Medications Medication SIG (Take, Route, Fr equency, Duration) Notes Start Date End Date Status Phentermine HCl 30 MG 1 capsule Orally O nce a day; Duration: 30 days 05/16/2024 Active Encounters Encounter Location Date Provider Diagnosis [facility] [address] [place] [address] 06/28/2024 MICHELINE HARRINGTON Plan Of Treatment Next Appt Details Provider Name:MICHELINE HARRINGTON, 11/30/2024 10:15:00 AM, [address] [place], [address], Progress Notes * Jessica UDBOSEDOB:1990 (34 yo F)Acc No.[id number]:06/28/2024 Patient: Brandan PAPPASlucia Provider: Jerod FARRIS PA-C :1990 A ge:33 Y S ex:Female Date:06/28/2024 Address:[address] [place], [place] [id number] Subjective: * Chief Complaints: * 1 . 6 week f/u. * Medical History: * Medications: T aking Phentermine HCl 30 MG Capsule 1 capsule Orally Once a day Objective: * Vitals: Assessment: Plan: * Treatment: * Images: Billing Information: * Visit Code: * Procedure Codes: * Electronic signature of SHILOH HARRINGTON PA-C on 11/27/2024 at 04:44 PM EDT Sign off status: Pending * Provider: Jerod FARRIS PA-C Date: 0 06/28/2024 Generated for Ana Maria armstrong/Fior/Tomeka on: 0 11/27/2024 04:44 PM EDT
--- NOTE | ~2024-11-27 | CT_ITS ---
CLINICAL HISTORY: pain, stiff, torticollis CT cervical spine without contrast Comparison: None provided Findings: Motion and streak artifact limit evaluation. Reversal of the cervical lordosis. No significant degenerative change. No acute fractures or dislocations. No cervical fluid collections or masses. Lung apices are clear. Tracheostomy tube noted. IMPRESSION: No acute findings. This document has been electronically signed by: Higinio Michael MD on 11/27/2024 19:32:11
[2024-11-27 13:23] VITALS: BP 121/88; PULSE 119; RESP 20; TEMP 37.4; O2SAT 95; BMI 41.2
--- NOTE | 2024-11-27 13:23 | ED_ITS ---
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 Pain over right lateral neck that radiates posteriorly up the back of her head. Pain worse with movement. Patient states she feels as if she ?slept incorrectly?. Denies headache, fever, radiation to upper extremities, weakness of upper extremities, no paresthesia. Related Data Home Medications ?Medication ?Instructions ?Recorded ?Confirmed Oxygen Home Use 04/04/21 05/20/21 nebulizers 11/11/22 Previous Rx's ?Medication ?Instructions ?Recorded levalbuterol HCl 1.25 mg/3 mL 1.25 mg (3 mL) inhalatio n BID 30 08/22/24 solution for nebulization days #180 mL sodium chloride 3 % for 4 ml inhalation BID 30 days #240 mL 08/22/24 nebulization amoxicillin 875 mg-potassium 1 tab PO BID #14 tabs clavulanate 125 mg tablet cefuroxime axetil 500 mg tablet 500 mg PO BID 7 days # 14 tabs 11/23/24 fluconazole 150 mg tablet 150 mg PO .qod 2 doses #2 ta bs 11/23/24 ketorolac 10 mg tablet 10 mg PO Q6H PRN pain #20 ta bs 11/27/24 methocarbamol 750 mg tablet 1,500 mg (2 x 750 mg) PO Q 8H PRN 11/27/24 pain, moderate #24 tabs dexamethasone 4 mg tablet See Rx Instructions PO DAILY 10 11/29/24 days #35 tabs sulfamethoxazole 800 1 tab PO Q12H 10 days #20 ta bs 11/29/24 mg-trimethoprim 160 mg tablet (Bactrim DS) Allergies Allergy/AdvReac Type Severity Reaction Status Date / Time prednisone (PREDNISONE) Allergy Severe Difficulty Verified 11/29/24 16:46 Breathing Review of Systems 2 Review of Systems: Yes all other systems are reviewed and are negative Constitutional: Constitutional: Denies fatigue, Denies fever(s) and Denies headache(s) ENT: Denies dizziness, Denies headache(s) and Reports neck pain Cardiovascular: Cardiovascular: Denies chest pain and Denies dyspnea Respiratory: Respiratory: Denies dyspnea Gastrointestinal: Gastrointestinal: Denies nausea and Denies vomiting Musculoskeletal: Musculoskeletal: Reports neck pain, Denies numbness, Denies radiating pain into limb and Denies tingling Neurologic: Denies dizziness, Denies headache(s), Denies numbness and Denies tingling Endocrine: Endocrine: Denies fatigue PMF Past Medical History Attestation statement: The following information was validated with the patient. Medical History Hemoptysis Bronchopneumonia Dysphagia GERD (gastroesophageal reflux disease) Hypoxia Tachycardia Chronic respiratory failure Chest pain Pneumonia delivery due to maternal disorder, delivered, curr hospitaliz 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 Surgical History H/O tracheostomy H/O colonoscopy History of laryngoscopy History of bronchoscopy Previous section Social History Social History Household Members: Family Housing: House Are you a primary foster care therapist to a significant other at home: No Do you presently have visiting nurse or other home services: No Alcohol intake: never Comment: lower extremity braces, bilateral Patient Tobacco Use Status: Never used Tobacco Smoked in Last 30 Days: No Second Hand Smoke Exposure: No Use of substances other than those prescribed or required for medical reasons: No Advance Directives: No Advance Directives Information Provided: No Advance Directives Date on File: 11/18/24 service: No Current occupational status: disabled Current occupation: right hand dominant Physical Exam ED Vital Signs: Vital Signs - 24 hr 11/27/24 13:23 11/27/24 16:35 11/27/24 19:22 Temperature 99.3 F 97.8 F 97.5 F Pulse Rate 119 H 115 H 102 H Respiratory Rate 20 20 Blood Pressure 121/88 99/46 L 120/73 Pulse Oximetry 95 95 92 Oxygen Delivery Method Room Air Room Air Room Air BMI result Body Mass Index 41.2 Const Other: Alert Orientation/consciousness: patient oriented x3 Neck Other: Patient able to range the neck, although limited in some directions, no meningeal signs appreciated Resp Effort & Inspection: normal respiratory effort Cardio Other: Normal peripheral perfusion Skin Other: Warm dry no rash Neuro General: patient oriented x3, gait normal, no focal motor deficits and CN's II- XI intact bilaterally Psych Other: Cooperative Course Course Course Narrative: This is a rapid medical exam performed by Hung Underwood LOCAL SUPERINTENDENT: Additional HPI, ROS, PE not included below will be deferred to primary provider. Patient is a 34-year-old female with history of asthma, Eomecnj-Vtres-Fbwad muscular atrophy, tracheostomy, rebound pneumonia, GERD presenting with complaint of right sided neck pain since Wednesday. Describes as burning and cramping, radiates up to head. Has tried several OTC medications without relief. Plan: will defer imaging to primary provider Medications Administered Discontinued Medications Generic Name Dose Route Start Last Admin Trade Name Freq PRN Reason Stop Dose Admin Diazepam 2.5 mg 11/27/24 18:39 11/27/24 19:45 Diazepam 10 Mg/2 Ml Cartridge IVPUSH 11/27/24 18:40 2.5 mg STAT STA Administration Ketorolac Tromethamine 15 mg 11/27/24 18:39 11/27/24 19:45 Ketorolac Tromethamine 15 Mg/Ml Vial IVPUSH 11/27/24 18:40 15 mg ONCE ONE Administration Medical Decision Making Medical Decision Making 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 Pain over right lateral neck that radiates posteriorly up the back of her head. Pain worse with movement. Patient states she feels as if she ?slept incorrectly?. Denies headache, fever, radiation to upper extremities, weakness of upper extremities, no paresthesia. Problem: Status post tracheostomy, genetic syndrome History: Per patient I have considered the following differential diagnoses: Wry neck, cervical strain, cervical radiculopathy, compression fracture, VAD, meningitis Plan: Patient has a stiff neck, we will obtain imaging, giving a muscle relaxant for her discomfort. She is not currently having any radicular symptoms, no symptoms of cord impingement. She has no mechanism to suggest VAD, and she is also neurologically intact without a headache. Thought about meningitis, however there are no meningeal signs, she has had symptoms for 5 days, she is afebrile. I have independently reviewed the following tests: Labs: No leukocytosis, not anemic, no electrolyte abnormality noted CT cervical spine:Findings: Motion and streak artifact limit evaluation. Reversal of the cervical lordosis. No significant degenerative change. No acute fractures or dislocations. No cervical fluid collections or masses. Lung apices are clear. Tracheostomy tube noted. IMPRESSION: No acute findings. Lab Data 11/27/24 17:48 11/27/24 17:48 Labs: Lab Results 11/27/24 Range/Units 17:48 WBC 11.8 H (4.8-10.8) X10*3/uL RBC 4.80 D (4.20-5.50) X10*6/uL Hgb 13.3 (12.0-16.0) g/dl Hct 40.5 D (37.0-47.0) % MCV 84.4 (80.0-98.0) fL MCH 27.7 (27.0-33.0) pg MCHC 32.8 (31.0-35.0) g/dl RDW 14.8 (11.0-16.0) % Plt Count 264 (160-400) X10*3/uL MPV 10.0 (9.4-12.3) fL Immature Gran % (Auto) 0.4 (0.0-0.4) % Neut % (Auto) 81.9 H (45-73) % Lymph % (Auto) 10.9 L (20-40) % Sullivan % (Auto) 6.1 (2-11) % Eos % (Auto) 0.6 (0-4) % Baso % (Auto) 0.1 (0-2) % Lymph # (Auto) 1.3 (1.2-4.9) X10*3/uL Sullivan # (Auto) 0.7 (0.1-1.2) X10*3/uL Eos # (Auto) 0.1 (0.0-0.4) X10*3/uL Baso # (Auto) 0.0 (0.0-0.2) X10*3/uL Abs Immat Gran (auto) 0.05 H (0.00-0.03) X10*3/uL Absolute Neuts (auto) 9.7 H (2.0-8.3) x10*3/uL Absolute Nucleated RBC 0.000 (0.0-0.012) X10*3/uL Nucleated RBC % (auto) 0.0 (0.0-0.2) /100WBC Sodium 139 (135-145) mmol/L Potassium 4.4 (3.3-5.1) mmol/L Chloride 101 (96-108) mmol/L Carbon Dioxide 27 (22-29) mmol/L Anion Gap 15 (12-20) BUN 14 (9-16) mg/dL Creatinine 0.66 (0.5-1.4) mg/dL Estim Creat Clear Calc 146.1 Estimated GFR > 60 Random Glucose 104 (60-115) mg/dL Calcium 9.0 D (8.4-10.2) mg/dL Total Bilirubin 0.3 (0.0-1.0) mg/dL AST 40 H (5-31) U/L ALT 28 (0-31) U/L Alkaline Phosphatase 59 (39-117) U/L Total Protein 7.3 (6.5-8.0) g/dL Albumin 3.7 (3.5-5.0) g/dL Beta HCG, Quant < 2 mIU/mL Discharge Plan Discharge Clinical Impression: Cervical strain, Torticollis Patient Disposition: Home, Self-Care Instructions: Cervical Strain (ED) Additional Instructions: The CT scan revealed that you have some degree of abnormal curvature of your cervical spine, this could be contributory to your current symptoms. See home care instructions. Take the methocarbamol as needed, this is a muscle relaxant and it can cause drowsiness. Do not drive or operate machinery while taking this medication. Use the ketorolac as directed, this is an anti-inflammatory, take it with food. Follow up with your primary care provider as needed. Prescriptions: New methocarbamol 750 mg tablet 1,500 mg PO Q8H PRN (Reason: pain, moderate) Qty: 24 0RF ketorolac 10 mg tablet 10 mg PO Q6H PRN (Reason: pain) Qty: 20 0RF Rx Instructions: maximum total duration of 5 days from all oral, intranasal, or parenteral formulations. The patient received an IV dose of Toradol here in the emergency room No Action sulfamethoxazole-trimethoprim [Bactrim DS] 800-160 mg tablet 1 tab PO Q12H 10 Days Qty: 20 0RF dexamethasone 4 mg tablet See Rx Instructions PO DAILY 10 Days Qty: 35 0RF Rx Instructions: orally daily; Take 2 tab BID x 5 days, then 1 tab BID x 5 days, then 1 tab daily x 5 days amoxicillin-pot clavulanate 875-125 mg tablet 1 tab PO BID Qty: 14 0RF cefuroxime axetil 500 mg tablet 500 mg PO BID 7 Days Qty: 14 0RF fluconazole 150 mg tablet 150 mg PO .qod Qty: 2 0RF Rx Instructions: may repeat second dose 72 hrs after first dose if symptoms persist (DME) Oxygen Home Use Kit See Rx Instructions .Route Rx Instructions: As directed (DME) nebulizers [facility] See Rx Instructions .ROUTE Rx Instructions: As directed sodium chloride 3 % solution for nebulization 4 ml inhalation BID 30 Days Qty: 240 11RF levalbuterol HCl 1.25 mg/3 mL solution for nebulization 1.25 mg inhalation BID 30 Days Qty: 180 9RF Interventions: ED Discharge Assessment Last Done: 11/27/24 22:22 Discharge Date/Time: 11/27/24 22:32 Print Language: Maori
[2024-11-27 16:35] VITALS: BP 99/46; PULSE 115; TEMP 36.6; O2SAT 95
--- OUTSIDE RECORDS SUMMARY | 2024-11-27 16:44 | XMS_ITS | Encounter Summary ---
Author Organization [facility] Address [address] [place] [address] Phone Care Team Providers Care Forging Dies Final Finisher Name Role Phone Jayshree Mishra MD Primary Care Provider [phone] Unknown, Unknown Primary Care Provider Jayshree Caldera MD Primary Care Provider [phone] Gonzalo Gomez MD, PhD Unavailable [phone] Encounter Details Date Type Department Care Team (Late st Contact Info) Description 09/07/2018 Procedure Pass [facility] PERIOPERATIVE DEPT [address] [place] [address] Social History Tobacco Use Types Packs/Day Years Used Date Smoking Tobacco: Never Smokeless Tobacco: Never Alcohol Use Standard Drinks/Week Comments Yes 4 (1 standard drink = 0.6 oz pure alcohol) none since learning of Comments Yes Sex and Gender Information Value Date Recorded Sex Assigned at Female 07/09/2019 9:29 PM EDT Legal Sex Female 4:57 PM EST Gender Identity Female 07/09/2019 9:29 PM EDT Sexual Orientation Straight 07/09/2019 9: 29 PM EDT documented as of this encounter Plan of Treatment Upcoming Encounters Date Type Department Care Team (Late st Contact Info) Description 12/20/2024 9:30 AM EDT Social Work [facility] [address] [facility] [address] [place] [address] Isidro Sanchez MD [address] [facility] [address] [place] [address] [email or web address] Liv Morris, PROFESSOR OF THEOLOGY [address] [place] [phone] [email or web address] 12/20/2024 10:15 AM EDT Office Visit [facility] Physical Therapy [address] [place] [address] Isidro Sanchez MD [address] [place] [address] [email or web address] Lali Alfaro, PT [address] [place] [phone] [email or web address] 12/20/2024 11:00 AM EDT Office Visit [facility] Occupational Therapy [address] [place] [address] Isidro Sanchez MD [address] [place] [address] [email or web address] Jocelyn Chavez, OT [address] [place] [address] [email or web address] 03/21/2025 4:30 PM EST Office Visit [facility] Neuromuscular Service [address] [facility], [address]th [place] [address] Alok Smyth MD [address] [place] [address] [email or web address] documented as of this encounter Visit Diagnoses Not on filedocumented in this encounter Additional Health Concerns Infection Onset Date Last Indicated Resolved Time Clearance-CoV Comment:Auto-resolved with negative COVID-19 PCR 08/31/2019 08/31/2019 08/31/2019 2:27 PM E DT CoV-Risk Comment:See [facility] note 09/1509/14/2019 09/14/2019 020 9:22 AM EDT documented as of this encounter Care Teams Forging Dies Final Finisher Relationship Specialty Start Date End Date Jayshree Mishra MD [address] [place] [address] PCP - General Internal Medicine 07/18/18 04/19/19 Unknown, Unknown, [address] [place] [address] PCP - General 04/20/19 06/26/19 Jayshree Mishra MD [address] [place] [id number] PCP - General Internal Medicine 06/27/19 Gonzalo Gomez MD, PhD [address] [place] [address] [email or web address] Neurology 01/20/23 documented as of this encounter Additional Source Comments The information contained in this document represents components of the legal health record. It is not the complete legal health record.[facility]
--- OUTSIDE RECORDS SUMMARY | 2024-11-27 16:44 | XMS_ITS | Continuity of Care Document ---
Author Name Anderson Momin Address [address] [place] [address] Organization Unknown Address [address] [place] [address] Medications No known medications Problems No known problems
--- OUTSIDE RECORDS SUMMARY | 2024-11-27 16:45 | XMS_ITS | Clinical Summary ---
Author Organization [facility] Facility Address [address] [address] Care Team Providers Care Slate Mixer Name Role Phone Jayshree Mishra MD Primary Care Provider [phone] Allergies Active Allergy Reactions Criticality Noted Date Comments Immune Globulin Other (see comments) 11/14/2002 puffiness Prednisone 10/23/2020 Medications acetaminophen (TYLENOL) 325 MG tablet Take 325 mg by mouth if needed 09/20/2019 Active ipratropium-albu terol (DUO-NEB) 0.5-2.5 mg/3 mL nebulizer solution Inhale 3 mL if needed 06/30/2019 Active Active Problems Problem Noted Date Diagnosed Date Hematuria, not otherwise specified 10/23/2020 Klojsyg-Awdpm-Nvofb disease 10/23/2020 Proteinuria 10/23/2020 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 Resolved Problems Problem Noted Date Diagnosed Date Resolved Date care status 10/28/20192020 Overview (10/23/2020): C/s 5/15 girl 35 weeks-3lb Needs 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 Normal pap until 03/2018 when her pap returned abnormal and had a negative colposcopy Plan- repeat 03/2019-LGSIL. Will refer to colpo-scheduled 05/04/19 with [facility]-completed. Plan repeat pap smear per . Genital herpes simplex 08/26/201810/23 Overview (10/23/2020): 1st outbreak 2013. Most recent outbreak at week 4 of gestation. Suppression therapy at 33 weeks given likely earlier delivery Last Assessment & Plan: Plan to start supression therapy IgA nephropathy 01/16/2014 10/24/2020 Tracheostomy status 08/11/2011 10/25/19 21 Overview (10/23/2020): Tracheostomy 4.0 adult Shiley, uncuffed Switched to Bivona 6.0 TTS 08/14/2019 in preparation for delivery Unable to tolerate due to increased secretions and plugging Switched back to original trach and carrying cuffed trach with her for delivery (in case she needs to be delivered in [place]) Page #[id number] at [facility] to exchange trach *PLEASE DO NOT DELETE FROM OVERVIEW IN PROBLEM LIST (UNLESS PATIENT HAS BEEN DECANNULATED). MAKE EDITS/UPDATES NECESSARY WITH CHANGES IN TRACHEOSTOMY STATUS.* Tracheostomy Status: Tracheostomy Tube Specifics: Primary Trach: Type: 4.0 adult shiley uncuffed Back-Up/Emergency Trach: 3.5 pedi shiley Vented: No Speaking Valve: Yes If yes, number of holes: one Capping: Yes, 3-5 hours per day If yes, number of holes: No Airway [...] paralysis Date of tracheostomy placement: August 2006 DME Company: [employer] Last Assessment & Plan: [facility] pulm switched her back to original trach without cuff due to swelling and discomfort She is now carrying the cuffed trach in her bag wherever she goes so it can be changed out for delivery Touched base with ob anesthesia regarding logistics [...] 19+ 3-dose series) 07/18/2010 Influenza Vaccine (#1) 2025 , 03/22/2018, 03/03/2018, Additional history exists Pneumococcal Vaccine: Peds (0 to 5 Years) and At-Risk Patients (6 to 49 Years) Aged Out No longer eligi ble based on patient's age to complete this [place] [address] [place] [address] Care Teams Slate Mixer Relationship Specialty Start Date End Date Jyashree Mishra MD [address] [place] [phone] PCP - General Internal Medicine 10/24/20
[2024-11-27 17:51] LABS: MANUAL DIFF FLAG NO
[2024-11-27 17:56] LABS: Hematocrit 40.5 % (37.0-47.0); Hemoglobin 13.3 g/dl (12.0-16.0); Imm Gran Abs Auto 0.05 X10*3/uL (0.00-0.03); Imm Gran Pct Auto 0.4 % (0.0-0.4); Lymphocytes Absolute Auto 1.3 X10*3/uL (1.2-4.9); Mean Corpuscular HGB Conc 32.8 g/dl (31.0-35.0); Mean Corpuscular Hemoglobin 27.7 pg (27.0-33.0); Mean Corpuscular Volume 84.4 fL (80.0-98.0); NRBC Abs Auto 0.000 X10*3/uL (0.0-0.012); NRBC Pct Auto 0.0 /100WBC (0.0-0.2); Platelet Count 264 X10*3/uL (160-400); Red Blood Count 4.80 X10*6/uL (4.20-5.50); White Blood Count 11.8 X10*3/uL (4.8-10.8)
[2024-11-27 18:09] LABS: Alanine Aminotransferase 28 U/L (0-31); Albumin Level 3.7 g/dL (3.5-5.0); Alkaline Phosphatase 59 U/L (39-117); Anion Gap 15 (12-20); Aspartate Amino Transferase 40 U/L (5-31); Blood Urea Nitrogen 14 mg/dL (9-16); Calcium 9.0 mg/dL (8.4-10.2); Carbon Dioxide 27 mmol/L (22-29); Chloride 101 mmol/L (96-108); Creatinine Clr Calc Pharmacy 146.1; Estimated Glomerular Filt Rate > 60; Potassium 4.4 mmol/L (3.3-5.1); Sodium 139 mmol/L (135-145); Total Protein 7.3 g/dL (6.5-8.0)
[2024-11-27 19:22] VITALS: BP 120/73; PULSE 102; RESP 20; TEMP 36.4; O2SAT 92
[2024-11-27] MEDS: diazePAM 10 MG/2 ML CARTRIDGE 2.5 MG IVPUSH (19:45)
[2024-11-27 22:00] VITALS: BP 97/55; PULSE 100; RESP 20; TEMP 36.9; O2SAT 93
[2024-11-27 22:22] VITALS: BP 97/55; PULSE 100; RESP 20; TEMP 36.9; O2SAT 93
== END 2024-11-27 22:32 | disposition home or self-care (01) ==
PROVIDERS: Physician Assistant Medical; Emergency Provider Emergency Medicine; PCP Internal Medicine
DX: S16.1XXA Strain of muscle, fascia and tendon at neck level, initial encounter (principal); M43.6 Torticollis; X50.1XXA Overexertion from prolonged static or awkward postures, initial encounter; M54.2 Cervicalgia; G60.0 Hereditary motor and sensory neuropathy; Y93.84 Activity, sleeping; Y92.013 Bedroom of single-family (private) house as the place of occurrence of the external cause; Y99.8 Other external cause status
CPT/HCPCS: 36415; 72125; 80053; 84702; 85025; 96374; 96375; 99284; J1885; J3360

== ENCOUNTER → 2024-11-27 18:39 | Outpatient (BNV) | payer OTHER, SELFPAY | PROVIDERS: PCP Internal Medicine; Visit Provider Radiology Diagnostic Radiology | DX: M54.2 Cervicalgia (principal) | CPT/HCPCS: 72125 ==

== ENCOUNTER 2024-11-29 13:50 | Outpatient (REF) | payer OTHER, SELFPAY ==
--- OUTSIDE RECORDS SUMMARY | 2024-06-28 06:15 | XMS_ITS ---
Author Organization [facility] Address [address] [place] [address] Care Team Providers Care Growth Hacker Name Role Phone MICHELINE HARRINGTON Unavailable [phone] REASON FOR VISIT 6 week f/u Medications Medication SIG (Take, Route, Fr equency, Duration) Notes Start Date End Date Status Phentermine HCl 30 MG 1 capsule Orally O nce a day; Duration: 30 days 05/16/2024 Active Encounters Encounter Location Date Provider Diagnosis [facility] [address] [place] [address] 06/28/2024 MICHELINE HARRINGTON Plan Of Treatment Next Appt Details Provider Name:MICHELINE HARRINGTON, 11/30/2024 10:15:00 AM, [address] [place], [address], Progress Notes * Jessica DUBOSEDOB:1990 (34 yo F)Acc No.[id number]:06/28/2024 Patient: Brandan PAPPASlucia Provider: Jerod FARRIS PA-C :1990 A ge:33 Y S ex:Female Date:06/28/2024 Address:[address] [place], [place] [id number] Subjective: * Chief Complaints: * 1 . 6 week f/u. * Medical History: * Medications: T aking Phentermine HCl 30 MG Capsule 1 capsule Orally Once a day Objective: * Vitals: Assessment: Plan: * Treatment: * Images: Billing Information: * Visit Code: * Procedure Codes: * Electronic signature of SHILOH HARRINGTON PA-C on 11/29/2024 at 02:30 PM EDT Sign off status: Pending * Provider: Jerod FARRIS PA-C Date: 0 06/28/2024 Generated for Ana Maria armstrong/Fior/Tomeka on: 0 11/29/2024 02:30 PM EDT
--- NOTE | ~2024-11-29 | XR_ITS ---
EXAMINATION: XR CHEST CLINICAL INFORMATION: R07.1 - Chest pain on breathing COMPARISON: June 14, 2024. TECHNIQUE: 2 views of the chest were obtained. FINDINGS: Patchy opacity in the right middle lung lobe and likely right lower lung lobe. Probable bronchiectasis in the right perihilar region. No pleural effusion. No pneumothorax. Cardiomediastinal silhouette size is prominent, unchanged. Tracheostomy tube remains in unchanged position. S-shaped curvature of the thoracic spine. Mild to moderate multilevel spondylosis. XR/XR chest 2V IMPRESSION: Persistent airspace disease, right lung. Concerning aspiration pneumonia. Electronically signed by: See Mendoza MD 11/29/2024 02:32 PM EDT
[2024-11-29 14:12] LABS: MANUAL DIFF FLAG NO
[2024-11-29 14:16] LABS: Venous Blood Gas Refer to POC result
[2024-11-29 14:17] LABS: VBG HCO3 29 mmol/L (22-26); VBG O2 % Saturation 88.0 %
--- OUTSIDE RECORDS SUMMARY | 2024-11-29 14:30 | XMS_ITS | Encounter Summary ---
Author Organization [facility] Address [address] [place] [phone] Phone Care Team Providers Care Wood Machine Carver Name Role Phone Jayshree Mishra MD Primary Care Provider [phone] Unknown, Unknown Primary Care Provider Jayshree Caldera MD Primary Care Provider [phone] Gonzalo Gomez MD, PhD Unavailable [phone] Encounter Details Date Type Department Care Team (Late st Contact Info) Description 09/07/2018 Procedure Pass [facility] PERIOPERATIVE DEPT [address] [place] [address] Social History Tobacco Use Types [...] Description 12/20/2024 9:30 AM EDT Social Work [facility] Services [address] [facility] [address] [place] [address] Isidro Sanchez MD [address] [facility] [place] [place] [address] [email or web address] Liv Morris, EQUIPMENT MONITOR PHOTOTYPESETTING [address] [place] [phone] [email or web address] 12/20/2024 10:15 AM EDT Office Visit [facility] Physical Therapy [address] [place] [address] Isidro Sanchez MD [address] [place] [address] [email or web address] Lali Alfaro, PT [address] [place] [address] [email or web address] 12/20/2024 11:00 AM EDT Office Visit [facility] Occupational Therapy [address] [place] [address] Isidro Sanchez MD [address] [place] [phone] [email or web address] Jocelyn Chavez, OT [address] [place] [address] [email or web address] 03/21/2025 4:30 PM EST Office Visit [facility] Neuromuscular Service [address] [facility]th [place] [address] Alok Smyth MD [address] [place] [address] [email or web address] documented as of this encounter Visit Diagnoses Not on filedocumented in this encounter Additional Health Concerns Infection Onset Date Last Indicated Resolved Time Clearance-CoV Comment:Auto-resolved with negative COVID-19 PCR 08/31/2019 08/31/2019 08/31/2019 2:27 PM E DT CoV-Risk Comment:See [facility] note 09/1509/14/2019 09/14/2019 020 9:22 AM EDT documented as of this encounter Care Teams Wood Machine Carver Relationship Specialty Start Date End Date Jayshree Mishra MD [address] [place] [address] PCP - General Internal Medicine 07/18/18 04/19/19 Unknown, Unknown, [address] [place] [address] PCP - General 04/20/19 06/26/19 Jayshree Mishra MD [address] [place] [address] PCP - General Internal Medicine 06/27/19 Gonzalo Gomez MD, PhD [address] [place] [phone] [email or web address] Neurology 01/20/23 documented as of this encounter Additional Source Comments The information contained in this document represents components of the legal health record. It is not the complete legal health record.[facility]
--- OUTSIDE RECORDS SUMMARY | 2024-11-29 14:31 | XMS_ITS | Clinical Summary ---
Author Organization [facility] Facility Address [address] [address] Care Team Providers Care Family And Divorce Legal Assistant Name Role Phone Jayshree Mishra MD Primary Care Provider [phone] Allergies Active Allergy Reactions Criticality Noted Date Comments Immune Globulin Other (see comments) 11/14/2002 puffiness Prednisone 10/23/2020 Medications acetaminophen (TYLENOL) 325 MG tablet Take 325 mg by mouth if needed 09/20/2019 Active ipratropium-albu terol (DUO-NEB) 0.5-2.5 mg/3 mL nebulizer solution Inhale 3 mL if needed 06/30/2019 Active Active Problems Problem Noted Date Diagnosed Date Hematuria, not otherwise specified 10/23/2020 Luzfnnf-Zevkg-Plyxg disease 10/23/2020 Proteinuria 10/23/2020 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 Will refer to [place]uled [place]04[place] with [facility]. Plan repeat pap smear per . Genital [...] case she needs to be delivered in [place] Page #[phone] at [facility] [place]ach *PLEASE DO NOT DELETE [...] of tracheostomy placement: August 2006 DME Company: [employer] Last Assessment & Plan: [facility] pulm switched her back to original trach [...] patient's age to complete this topic [place] [address] Care Teams Family And Divorce Legal Assistant Relationship Specialty Start Date End Date Jayshree Mishra MD [address] [place] [id number] PCP - General Internal Medicine 10/24/20
[2024-11-29 15:03] LABS: Hematocrit 37.5 % (37.0-47.0); Hemoglobin 12.8 g/dl (12.0-16.0); Imm Gran Abs Auto 0.04 X10*3/uL (0.00-0.03); Imm Gran Pct Auto 0.4 % (0.0-0.4); Lymphocytes Absolute Auto 1.0 X10*3/uL (1.2-4.9); Mean Corpuscular HGB Conc 34.1 g/dl (31.0-35.0); Mean Corpuscular Hemoglobin 30.2 pg (27.0-33.0); Mean Corpuscular Volume 88.4 fL (80.0-98.0); NRBC Abs Auto 0.000 X10*3/uL (0.0-0.012); NRBC Pct Auto 0.0 /100WBC (0.0-0.2); Platelet Count 226 X10*3/uL (160-400); Red Blood Count 4.24 X10*6/uL (4.20-5.50); White Blood Count 9.6 X10*3/uL (4.8-10.8)
[2024-11-29 15:19] LABS: D Dimer High Sensitivity 566 NG/ML
[2024-11-29 15:47] LABS: Anion Gap 12 (12-20); Blood Urea Nitrogen 15 mg/dL (9-16); Calcium 9.1 mg/dL (8.4-10.2); Carbon Dioxide 29 mmol/L (22-29); Chloride 105 mmol/L (96-108); Estimated Glomerular Filt Rate > 60; Potassium 4.5 mmol/L (3.3-5.1); Sodium 141 mmol/L (135-145)
[2024-11-30 21:19] LABS: Proteinase 3 PR3 Antibodies <1.0 AI
[2024-12-01 17:22] LABS: Immunoglobulin G Subclass 1 505 mg/dL (382-929); Immunoglobulin G Subclass 2 324 mg/dL (241-700); Immunoglobulin G Subclass 3 45 mg/dL (22-178); Immunoglobulin G Subclass 4 9.6 mg/dL (4-86); Immunoglobulin G Total 941 mg/dL (600-1640)
[2024-12-06 07:39] LABS: Anti Nuclear Antibody Pattern Nuclear, Speckled; Anti Nuclear Antibody Screen POSITIVE (NEGATIVE); Anti Nuclear Antibody Titer 1:40 titer
== END 2024-11-29 13:51 | disposition home or self-care (01) ==
LOC: HO.XRAY 13:50
PROVIDERS: PCP Internal Medicine; Visit Provider Hospitalist
DX: Z01.84 Encounter for antibody response examination (principal); J18.0 Bronchopneumonia, unspecified organism; R00.0 Tachycardia, unspecified; R07.1 Chest pain on breathing
CPT/HCPCS: 36415; 71046; 80048; 82784; 82803; 85025; 85379; 85652; 86021; 86038; 86039

== ENCOUNTER → 2024-11-29 14:12 | Outpatient (BNV) | payer OTHER, SELFPAY | PROVIDERS: PCP Internal Medicine; Visit Provider Radiology Diagnostic Radiology | DX: R06.02 Shortness of breath (principal); R07.1 Chest pain on breathing | CPT/HCPCS: 71046; 71275 ==

== ENCOUNTER 2024-11-29 15:55 | Emergency (ER) | payer OTHER, SELFPAY ==
--- NOTE | ~2024-11-29 | CT_ITS ---
CLINICAL HISTORY: Elevated D-dimer with shortness a breath CT angiography chest with contrast. 3D Postprocessing. Comparison: CR/SR - XR CHEST 2 VIEWS - 11/29/24 14:[address]/SR - VASCULAR PE (ADULT) - 11/18/24 14:19 EDT Findings: Normal heart size. Normal RV/LV ratio. The thoracic aorta is normal caliber. No pulmonary artery filling defects. Decreased size of subcarinal lymph node. Thyroid gland is within normal limits. Tracheostomy tube tip is at the level of the clavicular heads. Right middle and bilateral lower lobe opacities decreased when compared to 11/18/2024. There is a small accessory splenule. No acute findings in the visualized upper abdomen. The bones are intact. IMPRESSION: 1. Improving right middle and bilateral lower lobe opacities. 2. No pulmonary embolus. This document has been electronically signed by: Sheldon Hernández MD on 11/29/2024 20:13:57
--- NOTE | 2024-11-29 16:42 | PC.NURSE ---
This RN called and alerted resp of pt and her trach, Dominic 6.5 noted, not new stable, has been here recently.
[2024-11-29 16:44] VITALS: BP 111/69; PULSE 114; RESP 22; TEMP 37.1; O2SAT 91; BMI 41.2
[2024-11-29] MEDS: iohexoL 350 MG/ML 100 ML INFUS..BTL IV (19:26)
[2024-11-29 20:20] VITALS: BP 114/76; PULSE 110; RESP 24; TEMP 37.3; O2SAT 90
--- NOTE | 2024-11-29 20:44 | PC.NURSE ---
Pt found to be desat to 88% on RA. Respiratory called to the bedside and placed pt on 4L O2 with aerosol via a trach mask with O2 improvement to 96%. Pt states wearing 2L O2 at bedtime.
--- NOTE | 2024-11-29 21:15 | ED_ITS ---
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, KIRK on nocturnal oxygen, asthma and PTSD recently admitted on 11/18 discharge 11/23 acute hypoxia respiratory failure with pneumonia treated with IV antibiotic and discharged on Augmentin and cefuroxime since discharge patient is still not feeling better having tachycardia and shortness a breath even after even little ambulation patient was seen by toilet products molder today and order D-dimer which was elevated sent here to rule out PE Related Data Home Medications ?Medication ?Instructions ?Recorded ?Confirmed Oxygen Home Use 04/04/21 05/20/21 nebulizers 11/11/22 Previous Rx's ?Medication ?Instructions ?Recorded levalbuterol HCl 1.25 mg/3 mL 1.25 mg (3 mL) inhalatio n BID 30 08/22/24 solution for nebulization days #180 mL sodium chloride 3 % for 4 ml inhalation BID 30 days #240 mL 08/22/24 nebulization amoxicillin 875 mg-potassium 1 tab PO BID #14 tabs clavulanate 125 mg tablet cefuroxime axetil 500 mg tablet 500 mg PO BID 7 days # 14 tabs 11/23/24 fluconazole 150 mg tablet 150 mg PO .qod 2 doses #2 ta bs 11/23/24 ketorolac 10 mg tablet 10 mg PO Q6H PRN pain #20 ta bs 11/27/24 methocarbamol 750 mg tablet 1,500 mg (2 x 750 mg) PO Q 8H PRN 11/27/24 pain, moderate #24 tabs dexamethasone 4 mg tablet See Rx Instructions PO DAILY 10 11/29/24 days #35 tabs sulfamethoxazole 800 1 tab PO Q12H 10 days #20 ta bs 11/29/24 mg-trimethoprim 160 mg tablet (Bactrim DS) Allergies Allergy/AdvReac Type Severity Reaction Status Date / Time prednisone (PREDNISONE) Allergy Severe Difficulty Verified 11/29/24 16:46 Breathing PMFSH Past Medical History Medical History Hemoptysis Bronchopneumonia Dysphagia GERD (gastroesophageal reflux disease) Hypoxia Tachycardia Chronic respiratory failure Chest pain Pneumonia [facility] due to maternal disorder[facility] 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 Surgical History H/O tracheostomy H/O colonoscopy History of laryngoscopy History of bronchoscopy Previous section Social History Social History Household Members: Family Housing: House Are you a primary home health care social worker to a significant other at home: No Do you presently have visiting nurse or other home services: No Alcohol intake: never Comment: lower extremity braces, bilateral Patient Tobacco Use Status: Never used Tobacco Smoked in Last 30 Days: No Second Hand Smoke Exposure: No Use of substances other than those prescribed or required for medical reasons: No Advance Directives: No Advance Directives Information Provided: No Advance Directives Date on File: 11/18/24 service: No Current occupational status: disabled Current occupation: right hand dominant Physical Exam ED Vital Signs: Vital Signs - 24 hr 11/29/24 16:44 11/29/24 20:20 Temperature 98.7 F 99.1 F Pulse Rate 114 H 110 H Respiratory Rate 22 H 24 H Blood Pressure 111/69 114/76 Pulse Oximetry 91 L 90 L Oxygen Delivery Method Room Air Trach Collar Room Air BMI result Body Mass Index 41.2 Appearance: Alert. Oriented X3. No acute distress. Eyes: PERRLA, No Nystagmus ENT: Pharynx normal. Oral Mucosa moist tracheostomy in place Neck: Normal inspection. Neck supple. CVS: Normal heart rate and rhythm. Pulses normal. Respiratory: No respiratory distress. Equal air entry bilateral, no wheezing/rales/rhonchi bilateral conducted sounds Abdomen: Soft and nontender. Bowel sounds are present, no mass palpable, no CVA tenderness Skin: Skin warm and dry. Normal skin color. Normal skin turgor. Extremities: No lower extremity edema. No calf tenderness Neuro: Oriented X 3. No motor deficit. No sensory deficit.No cerebellar signs , cranial nerves II-XII intact Medications Administered Discontinued Medications Generic Name Dose Route Start Last Admin Trade Name Freq PRN Reason Stop Dose Admin Dexamethasone Sodium Phosphate 4 mg 11/29/24 23:22 11/29/24 23:29 Dexamethasone Sod Phosphate 4 Mg/Ml Vial IVPUSH 11/29/24 23:23 4 mg ONCE ONE Administration Sodium Chloride 1,000 mls @ 999 mls/hr 11/29/24 21:16 11/29/24 23:53 Ns IV 11/29/24 22:16 Infused .Q1H1M ONE Infusion Iohexol 100 ml 11/29/24 19:26 11/29/24 19:26 Iohexol 350 Mg/Ml 100 Ml Infus..Btl IV 11/29/24 19:27 65 ml ONCE ONE Administration Medical Decision Making Medical Decision Making MDM Narrative: Patient had CTA done which showed improved infiltrate in the lungs no PE patient is still complaining of increased shortness a breath with tachycardia on exertion will give IV fluids check the BNP and cardiac enzymes Lab Data Labs: Lab Results 11/29/24 11/29/24 Range/Units 21:55 22:00 VBG pH 7.54 H (7.32-7.43) VBG pCO2 31 mmHg VBG pO2 55 mmHg VBG HCO3 27 H (22-26) mmol/L VBG O2 Saturation 91.0 % VBG Base Excess 5.5 mmol/L Troponin I High Sens < 2.7 (<3.5-17.0) ng/L B-Natriuretic Peptide < 10 (<100) pg/mL Influenza Type A (PCR) NEGATIVE (Negative) Influenza Type B (PCR) NEGATIVE (Negative) RSV RNA Qual (PCR) NEGATIVE (Negative) SARS-CoV-2 RNA (RT-PCR) NEGATIVE (Negative) Discharge Plan Discharge Clinical Impression: Acute bronchitis Patient Disposition: Home, Self-Care Instructions: Acute Bronchitis (ED) Additional Instructions: Continue treatment as prescribed by your toilet products molder your CT scan is negative for blood clots Continue take your Decadron and nebulizing treatment as prescribed Report to the ER if any worsening of symptoms Prescriptions: No Action sulfamethoxazole-trimethoprim [Bactrim DS] 800-160 mg tablet 1 tab PO Q12H 10 Days Qty: 20 0RF dexamethasone 4 mg tablet See Rx Instructions PO DAILY 10 Days Qty: 35 0RF Rx Instructions: orally daily; Take 2 tab BID x 5 days, then 1 tab BID x 5 days, then 1 tab daily x 5 days amoxicillin-pot clavulanate 875-125 mg tablet 1 tab PO BID Qty: 14 0RF cefuroxime axetil 500 mg tablet 500 mg PO BID 7 Days Qty: 14 0RF fluconazole 150 mg tablet 150 mg PO .qod Qty: 2 0RF Rx Instructions: may repeat second dose 72 hrs after first dose if symptoms persist methocarbamol 750 mg tablet 1,500 mg PO Q8H PRN (Reason: pain, moderate) Qty: 24 0RF ketorolac 10 mg tablet 10 mg PO Q6H PRN (Reason: pain) Qty: 20 0RF Rx Instructions: maximum total duration of 5 days from all oral, intranasal, or parenteral formulations. The patient received an IV dose of Toradol here in the emergency room (DME) Oxygen Home Use Kit See Rx Instructions .Route Rx Instructions: As directed (DME) nebulizers [facility] See Rx Instructions .ROUTE Rx Instructions: As directed sodium chloride 3 % solution for nebulization 4 ml inhalation BID 30 Days Qty: 240 11RF levalbuterol HCl 1.25 mg/3 mL solution for nebulization 1.25 mg inhalation BID 30 Days Qty: 180 9RF Interventions: ED Discharge Assessment Last Done: 11/29/24 23:53 Discharge Date/Time: 11/29/24 23:54 Print Language: Persian
--- NOTE | 2024-11-29 21:26 | ECG_ITS ---
Test Reason : TACHY Blood Pressure : */* mmHG Vent. Rate : 108 BPM Atrial Rate : 108 BPM P-R Int : 134 ms QRS Dur : 94 ms QT Int : 330 ms P-R-T Axes : 30 18 8 degrees QTcB Int : 442 ms Sinus tachycardia Otherwise normal ECG When compared to the previous EKG of No significant changes seen Referred By: Ric Jolley Electronically Signed By: LOKI WILKINS MD
[2024-11-29 22:03] LABS: Venous Blood Gas Refer to POC result
[2024-11-29 22:04] LABS: VBG HCO3 27 mmol/L (22-26); VBG O2 % Saturation 91.0 %
[2024-11-29 22:22] LABS: B Type Natriuretic Peptide < 10 pg/mL (<100)
[2024-11-29 22:23] VITALS: BP 104/69; PULSE 106; RESP 24; TEMP 37.3; O2SAT 96
[2024-11-29 22:24] LABS: Troponin-I High Sensitivity < 2.7 ng/L (<3.5-17.0)
[2024-11-29 22:38] LABS: Resp Syncy Virus RNA Qual PCR NEGATIVE (Negative); SARS COV2 PCR INHOUSE NEGATIVE (Negative)
[2024-11-29 23:53] VITALS: BP 104/69; PULSE 106; RESP 24; TEMP 37.3; O2SAT 96
== END 2024-11-29 23:54 | disposition home or self-care (01) ==
PROVIDERS: Emergency Provider Internal Medicine
DX: J20.9 Acute bronchitis, unspecified (principal); R06.02 Shortness of breath; G60.0 Hereditary motor and sensory neuropathy; Z93.0 Tracheostomy status
CPT/HCPCS: 71275; 82803; 83880; 84484; 87637; 93005; 96361; 96374; 99284; 99285; J1100; Q9967

== ENCOUNTER → 2024-11-29 21:26 | Outpatient (BNV) | payer OTHER, SELFPAY | PROVIDERS: Emergency Provider Internal Medicine; Visit Provider Internal Medicine Cardiovascular Disease | DX: R00.0 Tachycardia, unspecified (principal) | CPT/HCPCS: 93010 ==

== ENCOUNTER 2024-12-14 14:17 | Outpatient (AMB) | payer OTHER, SELFPAY ==
--- OUTSIDE RECORDS SUMMARY | 2024-06-28 06:15 | XMS_ITS ---
Author Organization [facility] Address [address] [place] [address] Care Team Providers Care Provisioning Analyst Name Role Phone MICHELINE HARRINGTON Unavailable [phone] REASON FOR VISIT 6 week f/u Medications Medication SIG (Take, Route, Fr equency, Duration) Notes Start Date End Date Status Phentermine HCl 30 MG 1 capsule Orally O nce a day; Duration: 30 days 05/16/2024 Active Encounters Encounter Location Date Provider Diagnosis [facility] [address] [place] [address] 06/28/2024 MICHELINE HARRINGTON Plan Of Treatment Next Appt Details Provider Name:MICHELINE HARRINGTON, 01/08/2025 10:45:00 AM, [address] [place], [address], Progress Notes * Jessica DUBOSEDOB:1990 (34 yo F)Acc No.[id number]:06/28/2024 Patient: Brandan PAPPASlucia Provider: Jerod FARRIS PA-C :1990 A ge:33 Y S ex:Female Date:06/28/2024 Address:[address] [place], [place] [phone] Subjective: * Chief Complaints: * 1 . 6 week f/u. * Medical History: * Medications: T aking Phentermine HCl 30 MG Capsule 1 capsule Orally Once a day Objective: * Vitals: Assessment: Plan: * Treatment: * Images: Billing Information: * Visit Code: * Procedure Codes: * Electronic signature of SHILOH HARRINGTON PA-C on 12/14/2024 at 03:04 PM EDT Sign off status: Pending * Provider: Jerod FARRIS PA-C Date: 0 06/28/2024 Generated for Ana Maria armstrong/Fior/Tomeka on: 0 12/14/2024 03:04 PM EDT
[2024-12-14 14:21] VITALS: BP 110/54; PULSE 100; O2SAT 96; BMI 41.8
--- NOTE | 2024-12-14 14:21 | MHC.OFFVIS ---
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 The patient has been noticing since 3 days ago that she is having some chest discomfort. 8/10 in severity. Asthma getting worse. Associated with shortness of breath. Also noticed that she was coughing out some blood. She denies any sick lately like symptoms. Denies any fevers or chills. She came today for an appointment. We did change how her tracheostomy since she could not put the inner cannula back in. However her heart rate went up to 130 and her pulse ox 95%. She is 10 weeks gestation. She needs to be evaluated in the ER this time. We did review her results from when she went to the ER. She did have an elevated white count but otherwise her labs were okay. Her x-ray and her V/Q scan and lower extremity Dopplers were all reasonable. She did follow-up with Ob and had ultrasound baby that seem to be perfect. In the meantime she has been concerned about the albuterol because of the elevated heart rates in the palpitations. Now that she is with to be extremely careful. Therefore in the office we did provide her with Xopenex 1.25 mg which she tolerated significantly better. Therefore, I will send her Xopenex to the pharmacy. She failed albuterol due to the tachyarrhythmias and palpitations especially now . She has felt some palpitations getting worse as well. We did go for brief walking oximetry on room air she became short of breath and her heart rate went up to 130 and pulse ox decreased to 87 %. She was placed on 2 L nasal cannula. Her pulse ox was 98% with activity she felt a lot better on the oxygen. She needs to continue using the oxygen with activity and sleep. She will be following up with OBGYN at [facility] [phone]. She recently was admitted to [facility] for inpatient evaluation for significant hypoxia. Which she was there she had an aspiration event and became low more hypoxic. She was evaluated from a cardiac status in a pulmonary status and all the workup came back relatively negative except for diaphragmatic dysfunction likely worsened by her . The possibility of pulmonary hypertension is a reasonable thought. And because of her increased weight gain and daytime drowsiness with an elevated Dallas score she will benefit from getting a sleep study. However with a tracheostomy in the tachycardia I do believe a diagnostic sleep study will be best. 05/04/2023 the patient is here for sick visit. She has been sick now for more than a week. She started developing some chest tightness and cough. The cough is moderate to severe. She has a hard time sleeping. She has been suctioning some clear thick sticky phlegm. Denies any hemoptysis or colored sputum. She also has some heaviness in the chest and some chest pain. Positive sick contacts. She did test negative for the COVID. Since she has been more than wakes sick I will not swab her for any other organisms. She did have a chest x-ray which I personally reviewed. It appears that she does have patchy opacities on the right hemithorax. This is suggestive of pneumonia. Therefore go ahead and treat her with some antibiotics and also course of Decadron. She is allergic to penicillin. If the patient is no better she will call the office for an earlier assessment. 08/06/2023 the patient is here for pulmonary follow-up visit. The patient overall has been better. Her tracheostomy is in good placement. She misplaced her Passy [place] valve so she is using a credit support counselor. A direct capsule hard for her to breathe. I did have a PMV available and I did provide her 1. She also should be able to get some from her [employer]. The trach changes have been happening without any difficulties. The patient did follow-up with Neurology and will benefit from physical therapy. In addition to that she is using the oxygen for sleep. He was seen therapy has been affecting beneficial. The patient does not have any further complaints at this time. 04/20/2024 the patient is here for a pulmonary follow-up visit. Fortunately she had been sick for the last 4 days. She started with a sore throat and not developing worsening cough shortness of breath chest tightness. Moderate severity. She was started on going to the ER. Denies any fevers or chills. She did not get tested for COVID. We did do a swab in the office but was negative for RSV flu and also COVID. She did have some evidence of stridor in the office. She does have vocal cord paralysis. She does have a trach in per the most part keeping the valve off to able to breathe better. The patient did receive treatment with Xopenex x2. Also had to receive Solu-Medrol. She is going to start antibiotics and Decadron home. If the patient does not improve she will call for an earlier assessment of go to the ER. 06/14/2024 the patient is here for a sick visit. Her daughter had influenza a and B and she also developed a URI viral syndrome. Subsequently after that she started developing cough and shortness of breath. Then she started developing some hemoptysis. She did bring some pictures with bright red blood but lately he has been getting a little bit mixed with sputum and some clots. She had an x-ray which I personally reviewed. Slight haziness over the right base suggesting a bronchopneumonia. She also has evidence of bronchitis. Likely a component of tracheitis. Will go ahead and start her on Augmentin oxygen doxycycline to cover her for community-acquired pneumonia postviral. And at this time the patient will also get blood work. She did have a D-dimer that was negative so therefore we have to worry about blood clots. She does take estrogen hormonal replacement therapy for control. I advised her to come off it. The patient will continue the antibiotics. If she is no better she will call. If the bleeding gets worse we may have to do a bronchoscopy just to clear all the clots and to assess the area of bleeding. The CT scan of the chest may be also warranted but will see how she responds to the antibiotics. 08/22/2024 the patient is here for pulmonary follow-up visit. She does feel like she is getting more chest congestion. Difficult to clear his secretions. Coughing more regularly. She did have a Acapella valve that she is using the past with minimal improvement. It may be an old 1 and will go ahead and replace it. Although I do believe that percussion vest will be more effective treating her neuromuscular disease. Will go ahead and request 1. Unfortunately she did have a injury to her shoulder and she is having that evaluated. Some of the pain does radiate to the chest. Explained to her that that the percussion vest may cause some discomfort because of that we have to see. In the meantime the patient did have a chest x-ray back in June which we personally reviewed without any acute disease she has a chronic tracheostomy. Although she does feel some discomfort in the cough is worse so therefore will request a CT scan to see if there is any significant atelectasis mucus plugging or any other pathology. Will try to get a sputum as well. If were not able to get a sputum independent on the CAT scan we can also consider bronchoscopy she does change her tracheostomy regularly and she is tolerating her PMV. She did follow-up in [place] for her neuromuscular disease which is very happy about. 10/19/2024 the patient is here for hospital follow-up visit. She had an acute respiratory distress event at home and she did call the ambulance she was shaking to [facility]. During the ambulance ride she was provided suction with some mucus plugs. She was also given IV steroids and neb treatments. She was stabilized and was transferred to the hospital where she was admitted briefly. X-ray demonstrated a slight right-sided opacity suggesting pneumonia. She was placed on doxycycline and also a cephalosporin and the patient has been feeling little better. Although she still congested and feels chest tightness. She is having hard time wearing the Pass[place] valve. She does have wheezing on examination. Denies any obvious aspiration. The patient will go ahead and complete the antibiotics. Will give her some Solu-Medrol and then she can start Decadron taper. The patient also may benefit from a bronchoscopy. Once she is does feel better she can always call and we can schedule 1 to assess her airways and provide mucus clearance them therapeutic cleaning of the airways. The patient also will continue her respiratory therapy with the oxygen at nighttime. She does not need an HME and she also needs to use her inner cannulas to minimize obstructions of the tracheostomy. The patient will continue to follow closely. Will talk about after the bronchoscopy. 12/14/2024 the patient is here for pulmonary follow-up visit. She is slowly improving. Overall doing better although the heart rate still elevated in the oxygen still drops. She is still needs to use the oxygen. She has a hard time with the portability outside of the home because of her muscular dystrophy. She benefit from a portable oxygen concentrator I will request 1 from her current DME company, [employer]. Also did call her DME company regarding her HME she needs to get for her tracheostomy 1 that has an oxygen poor. In addition to that the patient has been using her levo albuterol via nebulizer with good effect. Will go ahead and add budesonide to it to see if we can provide some relief as she has completed all the antibiotics and Decadron. The patient was evaluated prior at [facility] I believe [facility]NT but she no longer goes to [place]. She needs a local ENT doctor specially with the fact that she is having hard time with his speech as she may have worsening vocal cord paralysis that is also affecting her breathing. My suspicion also this she has micro aspirating resulting in increasing recurrent infections. She did have a modified barium swallow in the hospital that did not show any difficulties with her swallow but I suspect that because of the tracheostomy her muscular dystrophy involvement of the larynx it is likely that she has micro aspirating. She has a strong immune system we did check her connective tissue disease workup which was fairly negative except for slight elevation in the TANIA but not enough to warrant any further workup right now. 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 Asthma Hemoptysis Bronchopneumonia Dysphagia GERD (gastroesophageal reflux disease) Hypoxia Tachycardia Chronic respiratory failure Chest pain Pneumonia delivery due to maternal disorder, [facility], [facility] Tracheostomy in place Surgical History H/O tracheostomy H/O colonoscopy History of laryngoscopy History of bronchoscopy Previous section Social History Household Members: Family Housing: House Are you a primary manager wound care to a significant other at home: No Do you presently have visiting nurse or other home services: No Alcohol intake: never Comment: lower extremity braces, bilateral Patient Tobacco Use Status: Never used Tobacco Second Hand Smoke Exposure: No Advance Directives Date on File: 11/18/24 service: No Current occupational status: disabled Current occupation: right hand dominant Review of Systems Const Reports difficulty sleeping, Reports fatigue, Denies night sweats, Reports weakness and Reports weight loss ENT Denies change in voice, Denies lip swelling, Denies mouth pain, Denies nasal congestion, Denies nasal discharge and Denies tongue swelling Card Denies chest pain, Reports palpitations, Reports dyspnea and Reports dyspnea on exertion Resp Reports chest congestion, Reports cough, Denies pain on inspiration, Denies pain with cough, Reports dyspnea, Reports dyspnea on exertion and Reports wheezing GI Denies abdominal pain Musc Reports as per HPI Neuro Reports as per HPI, Denies Neuro-related abnormal movements and Reports weakness Psych Denies no additional complaints Endo Reports fatigue and Reports palpitations Ryan/Lymph Denies easy bleeding and Denies lymphadenopathy Aller/Immun Denies lip swelling, Denies tongue swelling and Reports wheezing Physical Exam Vital Signs: Last Vital Signs Pulse 100 12/14/24 14:21 BP 110/54 L 12/14/24 14:21 Pulse Ox 96 12/14/24 14:21 Oxygen Delivery Method Room Air 12/14/24 14:21 BMI result Body Mass Index 41.8 Const General: alert and tired appearing HEENT Head: Yes normocephalic Neck Neck: Yes normal visual inspection, Yes full ROM, Yes no lymphadenopathy and Yes tracheostomy present Chest Chest palpation & inspection: normal inspection of the chest Resp Effort & Inspection: normal respiratory effort, stridor and prolonged expiratory phase Auscultation: no rhonchi, wheezes and diminished lung sounds Cardio Rate: regular rate Rhythm: regular rhythm Heart sounds: S1 normal heart sound present and S2 normal heart sound present GI Palpation (GI): Soft to palpation and nontender Auscultation: normal bowel sounds Skin General skin exam: other (ecchymosis) Results Reviewed Results Reviewed: personally review CT chest deomstrating interval decrease in the right sided pneumonia, but still abnormal Assessment & Plan Assessment & Plan (1) 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 Category: Medical (2) Asthma: Code(s): J45.909 - Unspecified asthma, uncomplicated Category: Medical Qualifiers: Asthma complication type: with acute exacerbation Asthma persistence: persistent Asthma severity: moderate Qualified Code(s): J45.41 - Moderate persistent asthma with (acute) exacerbation (3) Hypoxia: Code(s): R09.02 - Hypoxemia Category: Medical (4) Tracheostomy in place: Code(s): Z93.0 - Tracheostomy status Category: Medical (5) GERD (gastroesophageal reflux disease): Code(s): K21.9 - Gastro-esophageal reflux disease without esophagitis Category: Medical Qualifiers: Esophagitis presence: without esophagitis Qualified Code(s): K21.9 - Gastro-esophageal reflux disease without esophagitis (6) Chest pain: Code(s): R07.9 - Chest pain, unspecified Category: Medical Qualifiers: Chest pain type: chest pain on breathing Qualified Code(s): R07.1 - Chest pain on breathing (7) Bronchopneumonia: Comment: ? microaspiration Code(s): J18.0 - Bronchopneumonia, unspecified organism Category: Medical (8) Vocal cord paralysis: Code(s): J38.00 - Paralysis of vocal cords and larynx, unspecified Category: Medical (9) Tracheostomy dependence: Code(s): Z93.0 - Tracheostomy status Category: Medical Plan solumedrol->Decadron taper--> stopped continue CPT with acapella valve, will request percussion vest as she is failing acapella valve Trach [id number] Benzonates as needed Continue oxygen with sleep. 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, J38.00 - Paralysis of vocal cords and larynx, unspecified, Z93.0 - Tracheostomy status Medications: New budesonide 0.5 mg (2 mL) inhalation BID 120 mL 11RF 30 days J45.41 - Moderate persistent asthma with (acute) exacerbation chlorhexidine gluconate 0.12% 15 mL buccal DAILY 473 mL 2RF 30 days Coding Level of Care Code Est Pt Level 5 (81195) Diagnoses Charcot Shantell Tooth muscular atrophy G60.0 Moderate persistent asthma with acute exacerbation J45.41 Asthma complication type: with acute exacerbation Asthma persistence: persistent Asthma severity: moderate Hypoxia R09.[address] Z93.0 Gastroesophageal reflux disease without esophagitis K21.9 Esophagitis presence: without esophagitis Chest pain on breathing R07.1 Chest pain type: chest pain on breathing Bronchopneumonia J18.0 Vocal cord paralysis J38.00 Tracheostomy dependence Z93.0 Time Spent (min) 45
--- OUTSIDE RECORDS SUMMARY | 2024-12-14 15:04 | XMS_ITS | Clinical Summary ---
Author Organization [facility] Facility Address [address] [address] Care Team Providers Care Track Repair Supervisor Name Role Phone Jayshree Mishra MD Primary Care Provider [phone] Allergies Active Allergy Reactions Criticality Noted Date Comments Immune Globulin Other (see comments) 11/14/2002 puffiness Prednisone 10/23/2020 Medications acetaminophen (TYLENOL) 325 MG tablet Take 325 mg by mouth if needed 09/20/2019 Active ipratropium-albu terol (DUO-NEB) 0.5-2.5 mg/3 mL nebulizer solution Inhale 3 mL if needed 06/30/2019 Active Active Problems Problem Noted Date Diagnosed Date Hematuria, not otherwise specified 10/23/2020 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 Will refer to colpo-scheduled 05/04/19 with [facility]-completed. Plan repeat pap smear per . Genital [...] case she needs to be delivered in [place]) Page #[phone] at [facility] to exchange trach *PLEASE DO NOT DELETE [...] of tracheostomy placement: August 2006 DME Company: [employer] Last Assessment & Plan: [facility] pulm switched her back to original trach [...] patient's age to complete this topic [place] [address] Care Teams Track Repair Supervisor Relationship Specialty Start Date End Date Jayshree Mishra MD [address] [place] [id number] PCP - General Internal Medicine 10/24/20
--- OUTSIDE RECORDS SUMMARY | 2024-12-14 15:04 | XMS_ITS | Encounter Summary ---
Author Organization [facility] Address [address] [place] [phone] Phone Care Team Providers Care Benefits Counselor Name Role Phone Jayshree Mishra MD Primary Care Provider [phone] Unknown, Unknown Primary Care Provider Jayshree Caldera MD Primary Care Provider [phone] Gonzalo Gomez MD, PhD Unavailable [phone] Encounter Details Date Type Department Care Team (Late st Contact Info) Description 09/07/2018 Procedure Pass [facility] PERIOPERATIVE DEPT [address] [place] [address] Social History Tobacco Use Types [...] Description 12/20/2024 9:30 AM EDT Social Work [facility] [address] [facility] [address] [place] [address] Isdiro Sanchez MD [address] [facility] [address] [place] [address] [email or web address] Liv Morris, COLORMAN [address] [place] [phone] [email or web address] 12/20/2024 10:15 AM EDT Office Visit [facility] [address] [place] [phone] Isidro Sanchez MD [address] [place] [id number] [email or web address] Lali Alfaro, PT [address] [place] [phone] [email or web address] 12/20/2024 11:00 AM EDT Office Visit [facility] [address] [place] [id number] Isidro Sanchez MD [address] [place] [phone] [email or web address] Jocelyn Chavez, OT [address] [place] [phone] [email or web address] 03/21/2025 4:30 PM EST Office Visit [facility] Neuromuscular Service [address] [facility] 8[address] [place] [address] Alok Smyth MD [address] [place] [address] [email or web address] documented as of this encounter Visit Diagnoses Not on filedocumented in this encounter Additional Health Concerns Infection Onset Date Last Indicated Resolved Time Clearance-CoV Comment:Auto-resolved with negative COVID-19 PCR 08/31/2019 08/31/2019 08/31/2019 2:27 PM E DT CoV-Risk Comment:See [facility] note 09/1509/14/2019 09/14/2019 020 9:22 AM EDT documented as of this encounter Care Teams Benefits Counselor Relationship Specialty Start Date End Date Jayshree Mishra MD [address] [place] [id number] PCP - General Internal Medicine 07/18/18 04/19/19 Unknown, Unknown, [address] [place] [id number] PCP - General 04/20/19 06/26/19 Jayshree Mishra MD [address] [place] [id number] PCP - General Internal Medicine 06/27/19 Gonzalo Gomez MD, PhD [address] [place] [id number] [email or web address] Neurology 01/20/23 documented as of this encounter Additional Source Comments The information contained in this document represents components of the legal health record. It is not the complete legal health record.[facility]
== END 2024-12-14 15:03 | disposition home or self-care (01) ==
LOC: HO.HPS 14:18
PROVIDERS: PCP Internal Medicine Critical Care Medicine; Visit Provider Hospitalist
DX: G60.0 Hereditary motor and sensory neuropathy (principal); J45.41 Moderate persistent asthma with (acute) exacerbation; R09.02 Hypoxemia; Z93.0 Tracheostomy status; K21.9 Gastro-esophageal reflux disease without esophagitis; R07.1 Chest pain on breathing; J18.0 Bronchopneumonia, unspecified organism; J38.00 Paralysis of vocal cords and larynx, unspecified
CPT/HCPCS: 99215

== ENCOUNTER → 2024-12-14 14:17 | Outpatient (BNVA) | payer OTHER, SELFPAY | PROVIDERS: PCP Internal Medicine Critical Care Medicine; Visit Provider Hospitalist | DX: J45.41 Moderate persistent asthma with (acute) exacerbation (principal); G60.0 Hereditary motor and sensory neuropathy; R09.02 Hypoxemia; K21.9 Gastro-esophageal reflux disease without esophagitis; R07.1 Chest pain on breathing; J18.0 Bronchopneumonia, unspecified organism; J38.00 Paralysis of vocal cords and larynx, unspecified; Z93.0 Tracheostomy status | CPT/HCPCS: 99212 ==

== ENCOUNTER 2025-01-18 13:02 | Outpatient (AMB) | payer OTHER, SELFPAY ==
[2025-01-18 13:09] VITALS: BP 110/60; PULSE 97; O2SAT 97; BMI 40.1
--- NOTE | 2025-01-18 13:09 | A.OFFVIS_ITS ---
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 The patient has been noticing since 3 days ago that she is having some chest discomfort[facility] Asthma getting worse. Associated with shortness of breath. Also noticed that she was coughing out some blood. She denies any sick lately like symptoms. Denies any fevers or chills. She came today for an appointment. We did change how her tracheostomy since she could not put the inner cannula back in. However her heart rate went up to 130 and her pulse ox 95%. She is 10 weeks gestation. She needs to be evaluated in the ER this time. We did review her results from when she went to the ER. She did have an elevated white count but otherwise her labs were okay. Her x-ray and her V/Q scan and lower extremity Dopplers were all reasonable. She did follow-up with Ob and had ultrasound baby that seem to be perfect. In the meantime she has been concerned about the albuterol because of the elevated heart rates in the palpitations. Now that she is with to be extremely careful. Therefore in the office we did provide her with Xopenex 1.25 mg which she tolerated significantly better. Therefore, I will send her Xopenex to the pharmacy. She failed albuterol due to the tachyarrhythmias and palpitations especially now . She has felt some palpitations getting worse as well. We did go for brief walking oximetry on room air she became short of breath and her heart rate went up to 130 and pulse ox decreased to 87 %. She was placed on 2 L nasal cannula. Her pulse ox was 98% with activity she felt a lot better on the oxygen. She needs to continue using the oxygen with activity and sleep. She will be following up with OBGYN at [facility] [phone]. She recently was admitted to [facility] for inpatient evaluation for significant hypoxia. Which she was there she had an aspiration event and became low more hypoxic. She was evaluated from a cardiac status in a pulmonary status and all the workup came back relatively negative except for diaphragmatic dysfunction likely worsened by her . The possibility of pulmonary hypertension is a reasonable thought. And because of her increased weight gain and daytime drowsiness with an elevated Limon score she will benefit from getting a sleep study. However with a tracheostomy in the tachycardia I do believe a diagnostic sleep study will be best. 05/04/2023 the patient is here for sick visit. She has been sick now for more than a week. She started developing some chest tightness and cough. The cough is moderate to severe. She has a hard time sleeping. She has been suctioning some clear thick sticky phlegm. Denies any hemoptysis or colored sputum. She also has some heaviness in the chest and some chest pain. Positive sick contacts. She did test negative for the COVID. Since she has been more than wakes sick I will not swab her for any other organisms. She did have a chest x- ray which I personally reviewed. It appears that she does have patchy opacities on the right hemithorax. This is suggestive of pneumonia. Therefore go ahead and treat her with some antibiotics and also course of Decadron. She is allergic to penicillin. If the patient is no better she will call the office for an earlier assessment. 08/06/2023 the patient is here for pulmonary follow-up visit. The patient overall has been better. Her tracheostomy is in good placement. She misplaced her Passy [place] valve so she is using a teacher of the sight impaired. A direct capsule hard for her to breathe. I did have a PMV available and I did provide her 1. She also should be able to get some from her [facility]. The trach changes have been happening without any difficulties. The patient did follow-up with Neurology and will benefit from physical therapy. In addition to that she is using the oxygen for sleep. He was seen therapy has been affecting beneficial. The patient does not have any further complaints at this time. 04/20/2024 the patient is here for a pulmonary follow-up visit. Fortunately she had been sick for the last 4 days. She started with a sore throat and not developing worsening cough shortness of breath chest tightness. Moderate severity. She was started on going to the ER. Denies any fevers or chills. She did not get tested for COVID. We did do a swab in the office but was negative for RSV flu and also COVID. She did have some evidence of stridor in the office. She does have vocal cord paralysis. She does have a trach in per the most part keeping the valve off to able to breathe better. The patient did receive treatment with Xopenex x2. Also had to receive Solu-Medrol. She is going to start antibiotics and Decadron home. If the patient does not improve she will call for an earlier assessment of go to the ER. 06/14/2024 the patient is here for a sick visit. Her daughter had influenza a and B and she also developed a URI viral syndrome. Subsequently after that she started developing cough and shortness of breath. Then she started developing some hemoptysis. She did bring some pictures with bright red blood but lately he has been getting a little bit mixed with sputum and some clots. She had an x-ray which I personally reviewed. Slight haziness over the right base suggesting a bronchopneumonia. She also has evidence of bronchitis. Likely a component of tracheitis. Will go ahead and start her on Augmentin oxygen doxycycline to cover her for community-acquired pneumonia postviral. And at this time the patient will also get blood work. She did have a D-dimer that was negative so therefore we have to worry about blood clots. She does take estrogen hormonal replacement therapy for control. I advised her to come off it. The patient will continue the antibiotics. If she is no better she will call. If the bleeding gets worse we may have to do a bronchoscopy just to clear all the clots and to assess the area of bleeding. The CT scan of the chest may be also warranted but will see how she responds to the antibiotics. 08/22/2024 the patient is here for pulmonary follow-up visit. She does feel like she is getting more chest congestion. Difficult to clear his secretions. Coughing more regularly. She did have a Acapella valve that she is using the past with minimal improvement. It may be an old 1 and will go ahead and replace it. Although I do believe that percussion vest will be more effective treating her neuromuscular disease. Will go ahead and request 1. Unfortunately she did have a injury to her shoulder and she is having that evaluated. Some of the pain does radiate to the chest. Explained to her that that the percussion vest may cause some discomfort because of that we have to see. In the meantime the patient did have a chest x-ray back in June which we personally reviewed without any acute disease she has a chronic tracheostomy. Although she does feel some discomfort in the cough is worse so therefore will request a CT scan to see if there is any significant atelectasis mucus plugging or any other pathology. Will try to get a sputum as well. If were not able to get a sputum independent on the CAT scan we can also consider bronchoscopy she does change her tracheostomy regularly and she is tolerating her PMV. She did follow-up in [place] for her neuromuscular disease which is very happy about. 10/19/2024 the patient is here for hospital follow-up visit. She had an acute respiratory distress event at home and she did call the ambulance she was shaking to [facility]. During the ambulance ride she was provided suction with some mucus plugs. She was also given IV steroids and neb treatments. She was stabilized and was transferred to the hospital where she wa s admitted briefly. X-ray demonstrated a slight right-sided opacity suggesting pneumonia. She was placed on doxycycline and also a cephalosporin and the patient has been feeling little better. Although she still congested and feels chest tightness. She is having hard time wearing the Passy [place] valve. She does have wheezing on examination. Denies any obvious aspiration. The patient will go ahead and complete the antibiotics. Will give her some Solu-Medrol and then she can start Decadron taper. The patient also may benefit from a bronchoscopy. Once she is does feel better she can always call and we can schedule 1 to assess her airways and provide mucus clearance them therapeutic cleaning of the airways. The patient also will continue her respiratory therapy with the oxygen at nighttime. She does not need an HME and she also needs to use her inner cannulas to minimize obstructions of the tracheostomy. The patient will continue to follow closely. Will talk about after the br onchoscopy. 12/14/2024 the patient is here for pulmonary follow-up visit. She is slowly improving. Overall doing better although the heart rate still elevated in the oxygen still drops. She is still needs to use the oxygen. She has a hard time with the portability outside of the home because of her muscular dystrophy. She benefit from a portable oxygen concentrator I will request 1 from her current DME company, [employer]. Also did call her DME company regarding her HME she needs to get for her tracheostomy 1 that has an oxygen poor. In addition to that the patient has been using her levo albuterol via nebulizer with good effect. Will go ahead and add budesonide to it to see if we can provide some relief as she has completed all the antibiotics and Decadron. The patient was evaluated prior at [facility] I believe ENT but she no longer goes to [place]. She needs a local ENT doctor specially with the fact that she is having hard time with his speech as she may have worsening vocal cord paralysis that is also affecting her breathing. My suspicion also this she has micro aspirating resulting in increasing recurrent infections. She did have a modified barium swallow in the hospital that did not show any difficulties with her swallow but I suspect that because of the tracheostomy her muscular dystrophy involvement of the larynx it is likely that she has micro aspirating. She has a strong immune system we did check her connective tissue disease workup which was fairly negative except for slight elevation in the TANIA but not enough to warrant any further workup right now. 01/18/2025 The patient is here for a pilmonary follow up visit. She is feeling better. Still has dyspnea on exertion and the oxygen has been helpful. However, she is waiting for a POC to have better portability outside of the home. She continue with the respiratory therapy and CPT with the percussion vest. Tolerating the PMV, but still waiting for the HME with oxygen port, We are reaching out again to the DME. Still waiting for ENT referral, she will look into going back to [place]. 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 Asthma Hemoptysis Bronchopneumonia Dysphagia GERD (gastroesophageal reflux disease) Hypoxia Tachycardia Chronic respiratory failure Chest pain Pneumonia delivery due to maternal disorder, delivered, cur[facility] hospital[facility] Tracheostomy in place Surgical History H/O tracheostomy H/O colonoscopy History of laryngoscopy History of bronchoscopy Previous section Social History Household Members: Family Housing: House Are you a primary healthcare representative to a significant other at home: No Do you presently have visiting nurse or other home services: No Alcohol intake: never Comment: lower extremity braces, bilateral Patient Tobacco Use Status: Never used Tobacco Second Hand Smoke Exposure: No Advance Directives Date on File: 11/18/24 service: No Current occupational status: disabled Current occupation: right hand dominant Review of Systems Const Denies night sweats, Reports weakness and Reports weight loss ENT Denies change in voice, Denies lip swelling, Denies mouth pain, Denies nasal congestion, Denies nasal discharge and Denies tongue swelling Card Denies chest pain, Denies palpitations, Denies dyspnea and Reports dyspnea on exertion Resp Reports chest congestion, Reports cough, Denies pain on inspiration, Denies pain with cough, Denies dyspnea, Reports dyspnea on exertion and Reports wheezing GI Denies abdominal pain Musc Reports as per HPI Neuro Reports as per HPI, Denies Neuro-related abnormal movements and Reports weakness Psych Denies no additional complaints Endo Denies palpitations Ryan/Lymph Denies easy bleeding and Denies lymphadenopathy Aller/Immun Denies lip swelling, Denies tongue swelling and Reports wheezing Physical Exam Vital Signs: Last Vital Signs Pulse 97 01/18/25 13:09 BP 110/60 01/18/25 13:09 Pulse Ox 97 01/18/25 13:09 Oxygen Delivery Method Room Air 01/18/25 13:09 BMI result Body Mass Index 40.1 Const General: alert and tired appearing HEENT Head: Yes normocephalic Neck Neck: Yes normal visual inspection, Yes full ROM, Yes no lymphadenopathy and Yes tracheostomy present Chest Chest palpation & inspection: normal inspection of the chest Resp Effort & Inspection: normal respiratory effort and stridor Auscultation: no rhonchi, no wheezes and diminished lung sounds Cardio Rate: regular rate Rhythm: regular rhythm Heart sounds: S1 normal heart sound present and S2 normal heart sound present GI Palpation (GI): Soft to palpation and nontender Auscultation: normal bowel sounds Skin General skin exam: other (ecchymosis) Assessment & Plan Assessment & Plan (1) 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 Category: Medical (2) Asthma: Code(s): J45.909 - Unspecified asthma, uncomplicated Category: Medical Qualifiers: Asthma complication type: with acute exacerbation Asthma persistence: persistent Asthma severity: moderate Qualified Code(s): J45.41 - Moderate persistent asthma with (acute) exacerbation (3) Hypoxia: Code(s): R09.02 - Hypoxemia Category: Medical (4) Tracheostomy in place: Code(s): Z93.0 - Tracheostomy status Category: Medical (5) GERD (gastroesophageal reflux disease): Code(s): K21.9 - Gastro-esophageal reflux disease without esophagitis Category: Medical Qualifiers: Esophagitis presence: without esophagitis Qualified Code(s): K21.9 - G sahra-esophageal reflux disease without esophagitis (6) Vocal cord paralysis: Code(s): J38.00 - Paralysis of vocal cords and larynx, unspecified Category: Medical (7) Tracheostomy dependence: Code(s): Z93.0 - Tracheostomy status Category: Medical Plan continue CPT with acapella valve, will request percussion vest as she is failing acapella valve Trach [id number] Benzonates as needed Continue oxygen with sleep. Needs POC 2l/pulse with activity for better portability while outside of the home PPI for reflux disease should also sleep elevated Xopenex BID continue BUdesonide BID daily Chlorherxadine MW daily Hypertonic saline for CPT while on the vest ENT referral F/U 3-4 months Coding Level of Care Code Est Pt Level 4 (94980) Complex EM visit Add On G2211 Diagnoses Charcot Shantell Tooth muscular atrophy G60.0 Moderate persistent asthma with acute exacerbation J45.41 Asthma complication type: with acute exacerbation Asthma persistence: persistent Asthma severity: moderate Hypoxia R09.[address] Z93.0 Gastroesophageal reflux disease without esophagitis K21.9 Esophagitis presence: without esophagitis Vocal cord paralysis J38.00 Tracheostomy dependence Z93.0 Time Spent (min) 18
--- OUTSIDE RECORDS SUMMARY | 2025-01-18 15:04 | XMS_ITS ---
Author Name [facility] Organization Unknown Problems Problem Status Onset Date Problem Type Date of Resoluti on Source Tracheostomy status (HCC) active EncounterDiagnosisAct HHCCT Paralysis of vocal cords and larynx, unspecified active EncounterDiagnosisAct HHCCT Hereditary motor and sensory neuropathy active EncounterDiagnosisAct HHCCT
--- OUTSIDE RECORDS SUMMARY | 2025-01-18 15:04 | XMS_ITS | Encounter Summary ---
Author Organization [facility] Address [address] [place] [address] [place] [phone] Phone Care Team Providers Care Milk Processing Worker Name Role Phone Unknown, Unknown Primary Care Provider Jayshree Caldera MD Primary Care Provider Gonzalo Gmoez MD, PhD Unavailable [phone] Encounter Details Date Type Department Care Team (Late Contact Info) Description 05/19/2019 Ancillary Orders [facility] [place] IGNACIO [address], [address] [place] [address] Hamida Pimentel MD [address] [place] [address] [email or web address] Abnormal ultrasound Social History Tobacco Use Types Packs/Day Years [...] Encounters Date Type Department Care Team (Late Contact Info) Description 03/21/2025 4:30 PM EST Office Visit [facility] [address]th [place] [address] Alok Smyth MD [address] [place] [address] [address] [place] [address] [email or web address] documented as of this encounter Results * US OB AMNIOCENTESIS (GUIDANCE WITH SURGICAL AND OB LIMITED) (05/25/2019 12:03 PM EST) Anatomical Region Laterality Modality Ultrasound 05/25/2019 12:0 4 PM EST Impressions 05/25/2019 5:44 PM EST As stated above. The significance of these findings was discussed with the patient and her . Arrangements will be made for a follow up scan, a echocardiogram, an MRI, and a neuro consult in two weeks...hopefully the results of the amnio will be back by then. Otherwise it might be best to delay all of these by a few days. Maternal serology for CMV should be considered. AP Narrative 05/25/2019 5:44 PM EST Requester: HAMIDA PIMENTEL TECHNIQUE: US OB AMNIOCENTESIS (GUIDANCE WITH SURGICAL AND OB LIMITED) INDICATION: Amniocentesis for anomalies Examination of the uterus reveals a single active fetus in variable lie. The placenta is anterior. The heart rate and the amniotic fluid volume appear normal. There is inferior vermian hypoplasia vs. a persistent Tao's pouch. No other abnormalities were detected but a complete structural survey was not possible due to body habitus; she scans rather poorly. In particular, the heart was not optimally evaluated. The cervix measures > 3 cm in length without funneling. No adnexal masses were seen. Biometry is consistent with 18 weeks and 2 days. She is 19 weeks and 4 days based on established clinical dates, with an EDC of October 15, 2019. There is a 9 day growth lag, the same as on May 19. All of the measurements are concordant. After written informed consent, Dr. Harvey performed an amniocentesis under my direct supervision using ultrasound guidance without apparent complication. Fluid was sent for direct microarray. The blood type is Rh positive. Elbert protocol was followed. Procedure Note Baldemar Sanchez MD - 05/25/2019 Requester: HAMIDA PIMENTEL TECHNIQUE: US OB AMNIOCENTESIS (GUIDANCE WITH SURGICAL AND OB LIMITED) INDICATION: Amniocentesis for anomalies Examination of the uterus reveals a single active fetus in variable lie.The placenta is anterior. The heart rate and the amniotic fluid volumeappear normal. There is inferior vermian hypoplasia vs. a persistent Tao's pouch. Noother abnormalities were detected but a complete structural surveywas not possible due to body habitus; she scans rather poorly. In particular,the heart was not optimally evaluated. The cervix measures > 3 cm in length without funneling. No adnexal masseswere seen. Biometry is consistent with 18 weeks and 2 days. She is 19 weeks and 4days based on established clinical dates, with an EDC of October 15, 2019. Thereis a 9 day growth lag, the same as on May 19. All of the measurements are concordant. After written informed consent, Dr. Harvey performed an amniocentesisunder my direct supervision using ultrasound guidance without apparentcomplication. Fluid was sent for direct microarray. The blood type is Rh positive.Elbert protocol was followed. IMPRESSION: As stated above. The significance of these findings was discussed with the patient and her . Arrangements will be made for a followup scan, a echocardiogram, an MRI, and a neuro consult in two weeks...hopefully the results of the amnio will be back by then.Otherwise it might be best to delay all of these by a few days. Maternal serology for CMV should be considered. AP us Hamida Pimentel MD IMG US OBSTETRIC Final Resu lt documented in this encounter Visit Diagnoses Diagnosis Abnormal ultrasound Abnormal ultrasound documented in this encounter Additional Health Concerns Infection Onset Date Last Indicated Resolved Time Clearance-CoV Comment:Auto-resolved with negative COVID-19 PCR 08/31/2019 08/31/2019 08/31/2019 2:27 PM E DT CoV-Risk Comment:See [facility] note 09/1509/14/2019 09/14/2019 020 9:22 AM EDT documented as of this encounter Care Teams Milk Processing Worker Relationship Specialty Start Date End Date Unknown, Unknown, MD PCP - General 04/20/19 06/26/19 Jayshree Mishra MD [address] [place] [id number] PCP - General Internal Medicine 06/27/19 Gonzalo Gomez MD, PhD [address] [place] [id number] [email or web address] Neurology 01/20/23 documented as of this encounter Additional Source Comments The information contained in this document represents components of the legal health record. It is not the complete legal health record.[facility]
--- OUTSIDE RECORDS SUMMARY | 2025-01-18 15:04 | XMS_ITS | Encounter Summary ---
Author Organization [facility] Address [address] [place] [address] Phone Care Team Providers Care Core Inspector Name Role Phone Jayshree Mishra MD Primary Care Provider [phone] Gonzalo Gomez MD, PhD Unavailable [phone] Encounter Details Date Type Department Care Team (Late st Contact Info) Description 09/15/2019 Procedure Pass [facility] [address] [place] [address] Social History Tobacco Use Types Packs/Day Years Used Date Smoking Tobacco: Never Smokeless Tobacco: Never Alcohol Use Standard Drinks/Week Comments Yes 4 (1 standard drink = 0.6 oz pure alcohol) none since learning of Child or Family Care Answer Date Record ed Do you have problems with on e of the following making it difficult for you to work, study, or receive health care? No 07/09/2019 Education Answer Date Recorded Are you interested in help w ith more adult education (for example, completing high school, GED, job training, learning the Maltese language, technical skills, or developing parenting skills)? No 07/09/2019 Are you concerned about learning? Not on file 07/09/2019 Not on file 07/09/2019 Not on file 07/09/2019 Food Answer Date Recorded Within the past 6 months we worried whether our food would run out before we got money to buy more. Never True 07/09/2019 Within the past 6 months the food we bought just didn't last and we didn't have enough money to get more. Never True 0 Paying for Meds Answer Date Recorded Do you have trouble paying for medicines? No 07/09/2019 Paying Utility Bills Answer Date Record ed Do you have trouble paying your heating or elect ricity bill? No 07/09/2019 Transportation Answer Date Recorded Has the lack of transportati on kept you from medical appointments or from getting medications? No 07/09/2019 Comments No Sex and Gender Information Value Date Recorded Sex Assigned at Female 07/09/2019 9:29 PM EDT Legal Sex Female 4:57 PM EST Gender Identity Female 07/09/2019 9:29 PM EDT Sexual Orientation Straight 07/09/2019 9: 29 PM EDT documented as of this encounter Plan of Treatment Upcoming Encounters Date Type Department Care Team (Late st Contact Info) Description 03/21/2025 4:30 PM EST Office Visit [facility] Neuromuscular Service [address] [facility], 8th [place] [address] Alok Smyth MD [facility] [address] [place] [address] [email or web address] documented as of this encounter Visit Diagnoses Not on filedocumented in this encounter Additional Health Concerns Infection Onset Date Last Indicated Resolved Time CoV-Risk Comment:See [facility] note 09/1509/14/2019 09/14/2019 020 9:22 AM EDT documented as of this encounter Care Teams Core Inspector Relationship Specialty Start Date End Date Jayshree Mishra MD [address] [place] [address] PCP - General Internal Medicine 06/27/19 Gonzalo Gomez MD, PhD 55 [facility] [place] [address] Neurology 01/20/23 documented as of this encounter Additional Source Comments The information contained in this document represents components of the legal health record. It is not the complete legal health record.[facility]
--- OUTSIDE RECORDS SUMMARY | 2025-01-18 15:04 | XMS_ITS | Encounter Summary ---
Author Organization [facility] Address [address] [place] [address] [place] [address] Phone Care Team Providers Care Undergraduate Internship Name Role Phone Jayshree Mishra MD Primary Care Provider [phone] Unknown, Unknown Primary Care Provider Jayshree Caldera MD Primary Care Provider [phone] Gonzalo Gomez MD, PhD Unavailable [phone] Reason for Referral * Consultation (Routine) - Closed Specialty Diagnoses / Procedures Referred By Roseann giles Referred To Contact Diagnoses 10 weeks gestation of System, Provider Not In, PhD [address] [address] Referral ID Status Reason Start Date Expiration Date Visits Re quested Visits Authorized [id number] Closed 03/24/2019 03/24/2020 1 1 Encounter Details Date Type Department Care Team (Latest Contact Info) Description 03/24/2019 Transcribe Orders [facility] Rick IGNACIO [address] [place] [address], 4th Floor, [address] [place] [address] Unknown, Unknown, 10 weeks gestation of (Primary Dx) Social History Tobacco Use Types Packs/Day Years [...] Upcoming Encounters Date Type Department Care Team ([facility] st Contact Info) Description 03/21/2025 4:30 PM EST Office Visit [facility] Neuromuscular Service [address] [place] [address] Alok Smyth MD [address] [place] [address] 820 [place] [address] [email or web address] Scheduled Referrals Name Type Priority Associated Diagnoses Order Schedule Ambulatory referral to [facility] OB Outpatient Referral Routine 10 weeks gestation of Ordered: 03/24/2019 documented as of this encounter Visit Diagnoses Diagnosis 10 weeks gestation of - Primary documented in this encounter Additional Health Concerns Infection Onset Date Last Indicated Resolved Time Clearance-CoV Comment:Auto-resolved with negative COVID-19 PCR 08/31/2019 08/31/2019 08/31/2019 2:27 PM E DT CoV-Risk Comment:See [facility] note 09/1509/14/2019 09/14/2019 020 9:22 AM EDT documented as of this encounter Care Teams Undergraduate Internship Relationship Specialty Start Date End Date Jayshree Mishra MD [address] [place] [address] PCP - General Internal Medicine 07/18/18 04/19/19 Unknown, Unknown, [address] [place] [address] PCP - General 04/20/19 06/26/19 Jayshree Mishra MD [address] [place] [address] PCP - General Internal Medicine 06/27/19 Gonzalo Gomez MD, PhD [address] [place] [address] [place] [address] [email or web address] Neurology 01/20/23 documented as of this encounter Additional Source Comments The information contained in this document represents components of the legal health record. It is not the complete legal health record.[facility]
--- OUTSIDE RECORDS SUMMARY | 2025-01-18 15:04 | XMS_ITS | Encounter Summary ---
Author Organization [facility] Address [address] [place] [address] Phone Care Team Providers Care Rn Heart Name Role Phone Jayshree Mishra MD Primary Care Provider [phone] Unknown, Unknown Primary Care Provider Jayshree Caldera MD Primary Care Provider [phone] Gonzalo Gomez MD, PhD Unavailable [phone] Encounter Details Date Type Department Care Team (Late Contact Info) Description 09/07/2018 Procedure Pass [facility] PERIOPERATIVE DEPT [address] [place] [address] Social History Tobacco Use Types [...] Description 03/21/2025 4:30 PM EST Office Visit [facility] Neuromuscular Service [address] [facility], 8th [place] [address] Alok Smyth MD 55 [facility] [address] [place] [address] [email or web address] documented as of this encounter Visit Diagnoses Not on filedocumented in this encounter Additional Health Concerns Infection Onset Date Last Indicated Resolved Time Clearance-CoV Comment:Auto-resolved with negative COVID-19 PCR 08/31/2019 08/31/2019 08/31/2019 2:27 PM E DT CoV-Risk Comment:See Biothreat[facility] note 09/1509/14/2019 09/14/2019 020 9:22 AM EDT documented as of this encounter Care Teams Rn Heart Relationship Specialty Start Date End Date Jayshree Mishra MD [address] [place] [address] PCP - General Internal Medicine 07/18/18 04/19/19 Unknown, Francis, [address] [place] [address] PCP - General 04/20/19 06/26/19 Jayshree Mishra MD [address] [place] [address] PCP - General Internal Medicine 06/27/19 Gonzalo Gomez MD, PhD [address] [place] [address] [email or web address] Neurology 01/20/23 documented as of this encounter Additional Source Comments The information contained in this document represents components of the legal health record. It is not the complete legal health record.[facility]
--- OUTSIDE RECORDS SUMMARY | 2025-01-18 15:04 | XMS_ITS | Encounter Summary ---
Author Organization [facility] Address [address] [facility] [address] [place] [address] Phone Care Team Providers Care Bread Slicer Machine Name Role Phone Jayshree Mishra MD Primary Care Provider [phone] Gonzalo Gomez MD, PhD Unavailable [phone] Reason for Visit * Reason Comments Medication Refill Encounter Details Date Type Department Care Team (Late st Contact Info) Description 09/20/2019 Refill [facility] Maternal Medicine Obstetrics [address] [facility], 4th Floor, [address] [place] [address] Hamida Pimentel MD [address] [place] [address] [email or web address] Medication Refill Social History Tobacco Use Types Packs/Day Years [...] high school, GED, job training, learning the Cook Islander language, technical skills, or developing parenting skills)? [...] Description 03/21/2025 4:30 PM EST Office Visit [facility] Neuromuscular Service [address] [facility], 8th [place] [address] Alok Smyth MD [address] [place] [address] 820 [place] [address] [email or web address] documented as of this encounter Visit Diagnoses Diagnosis High-risk in third trimester Herpes genitalis Unspecified genital herpes documented in this encounter Care Teams Bread Slicer Machine Relationship Specialty Start Date End Date Jayshree Mishra MD 140 [place] [address] PCP - General Internal Medicine 06/27/19 Gonzalo Gomez MD, PhD [address] [place] [address] [email or web address] Neurology 01/20/23 documented as of this encounter Additional Source Comments The information contained in this document represents components of the legal health record. It is not the complete legal health record.[facility]
--- OUTSIDE RECORDS SUMMARY | 2025-01-18 15:04 | XMS_ITS | Encounter Summary ---
Author Organization [facility] Address [address] [place] [address] Phone Care Team Providers Care Printing Gray Cloth Tender Name Role Phone Jayshree Mishra MD Primary Care Provider Gonzalo Gomez MD, PhD Unavailable [phone] Encounter Details Date Type Department Care Team (Late st Contact Info) Description 08/31/2019 Telephone VIRTUAL DEPARTMENT 55 [place] [phone] Maira Valenzuela MD [address] [place] [address] [email or web address] Social History Tobacco Use Types Packs/Day Years [...] high school, GED, job training, learning the Frisian language, technical skills, or developing parenting skills)? [...] or from getting medications? No 07/09/2019 Comments Yes Sex and Gender Information Value [...] Description 03/21/2025 4:30 PM EST Office [facility] Neuromuscular Service [address] [facility], 8th [place] [address] Alok Smyth MD 55 [facility] [address] [place] [address] [email or web address] documented as of this encounter Visit Diagnoses Not on filedocumented in this encounter Additional Health Concerns Infection Onset Date Last Indicated Resolved Time Clearance-CoV Comment:Auto-resolved with negative COVID-19 PCR 08/31/2019 08/31/2019 08/31/2019 2:27 PM E DT CoV-Risk Comment:See [facility]oth[facility] note 09/1509/14/2019 09/14/2019 020 9:22 AM EDT documented as of this encounter Care Teams Printing Gray Cloth Tender Relationship Specialty Start Date End Date Jayshree Mishra MD [address] [place] [address] PCP - General Internal Medicine 06/27/19 Gonzalo Gomez MD, PhD 55 [facility] [place] [address] Neurology 01/20/23 documented as of this encounter Additional Source Comments The information contained in this document represents components of the legal health record. It is not the complete legal health record.[facility]
--- OUTSIDE RECORDS SUMMARY | 2025-01-18 15:04 | XMS_ITS | Clinical Summary ---
Author Organization [facility] Address [address] [address] Care Team Providers Care Aluminum Sheet Cutter Name Role Phone Jayshree Mishra MD Primary Care Provider [phone] Allergies Active Allergy Reactions Criticality Noted Date Comments Immune Globulin Other (see comments) 11/14/2002 puffiness Prednisone 10/23/2020 Medications acetaminophen (TYLENOL) 325 MG tablet Take 325 mg by mouth if needed 09/20/2019 Active ipratropium-albu terol (DUO-NEB) 0.5-2.5 mg/3 mL nebulizer solution Inhale 3 mL if needed 06/30/2019 Active Active Problems Problem Noted Date Diagnosed Date Hematuria, not otherwise specified 10/23/2020 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 Will refer to colpo-scheduled 05/04/19 with [facility]-completed. Plan repeat pap smear per . Genital [...] case she needs to be delivered in [place]) Page #[phone] at [facility] to exchange trach *PLEASE DO NOT DELETE [...] of tracheostomy placement: August 2006 DME Company: [employer] Last Assessment & Plan: [facility] pulm switched her back to original trach [...] patient's age to complete this topic [place] [address] Care Teams Aluminum Sheet Cutter Relationship Specialty Start Date End Date Jayshree Mishra MD [address] [place] [address] PCP - General Internal Medicine 10/24/20
--- OUTSIDE RECORDS SUMMARY | 2025-01-18 15:04 | XMS_ITS | Encounter Summary ---
Author Organization [facility] Address [address] [place] [address] Phone Care Team Providers Care Extractions Technician Name Role Phone Shayy James MD Primary Care Provider [phone] Shayy James MD Primary Care Provider [phone] Jayshree Mishra MD Primary Care Provider Unknown, Unknown Primary Care Provider Jayshree Caldera MD Primary Care Provider Gonzalo Gomez MD, PhD Unavailable [phone] Encounter Details Date Type Department Care Team (Late Contact Info) Description 07/15/2016 Procedure Pass [facility] PERIOP DEPT [address] [place] [phone] Social History Tobacco Use Types Packs/Day Years Used Date Smoking Tobacco: Never Smokeless Tobacco: Never Alcohol Use Standard Drinks/Week Comments Yes 4 (1 standard drink = 0.6 oz pur [...] Description 03/21/2025 4:30 PM EST Office Visit [facility] Neuromuscular Service [address] [facility], 8th [place] [address] Alok Smyth MD [address] [place] [address] 820 [place] [address] [email or web address] documented as of this encounter Visit Diagnoses Not on filedocumented in this encounter Additional Health Concerns Infection Onset Date Last Indicated Resolved Time Clearance-CoV Comment:Auto-resolved with negative COVID-19 PCR 08/31/2019 08/31/2019 08/31/2019 2:27 PM E DT CoV-Risk Comment:See [facility] note 09/1509/14/2019 09/14/2019 020 9:22 AM EDT documented as of this encounter Care Teams Extractions Technician Relationship Specialty Start Date End Date Shayy James MD [email or web address] PCP - General Internal Medicine 12/11/15 02/25/17 Shayy James MD [email or web address] PCP - General Internal Medicine 02/26/17 07/17/18 Jayshree Mishra MD [address] [place] [address] PCP - General Internal Medicine 07/18/18 04/19/19 Francis, Francis, [address] [place] [address] PCP - General 04/20/19 06/26/19 Jayshree Mishra MD [address] [place] [address] PCP - General Internal Medicine 06/27/19 Gonzalo Gomez MD, PhD [address] [place] [address] [place] [address] [email or web address] Neurology 01/20/23 documented as of this encounter Additional Source Comments The information contained in this document represents components of the legal health record. It is not the complete legal health record.[facility]
--- OUTSIDE RECORDS SUMMARY | 2025-01-18 15:04 | XMS_ITS | Encounter Summary ---
Author Organization [facility] Address [address] [place] [address] Phone Care Team Providers Care Drafting Layout Worker Name Role Phone Jayshree Mishra MD Primary Care Provider [phone] Gonzalo Gomez MD, PhD Unavailable [phone] Encounter Details Date Type Department Care Team (Late st Contact Info) Description 09/17/2019 Procedure Pass [facility] MRI, L[address] 6 [address] [facility], 6th [place] [address] Social History Tobacco Use Types Packs/Day Years [...] high school, GED, job training, learning the Welsh language, technical skills, or developing parenting skills)? [...] Upcoming Encounters Date Type Department Care Team ([facility] st Contact Info) Description 03/21/2025 4:30 PM EST Office Visit [facility] Neuromuscular Service [address] [facility], 8th [place] [address] Alok Smyth MD [address] [place] [address] 820 [place] [address] [email or web address] documented as of this encounter Visit Diagnoses Not on filedocumented in this encounter Care Teams Drafting Layout Worker Relationship Specialty Start Date End Date Jayshree Mishra MD [address] [place] [address] PCP - General Internal Medicine 06/27/19 Gonzalo Gomez MD, PhD [address] [place] [address] [email or web address] Neurology 01/20/23 documented as of this encounter Additional Source Comments The information contained in this document represents components of the legal health record. It is not the complete legal health record.[facility]
--- OUTSIDE RECORDS SUMMARY | 2025-01-18 15:04 | XMS_ITS | Encounter Summary ---
Author Organization [facility] Address [address] [place] [address] [place] [phone] Phone Care Team Providers Care Landscape Artist Name Role Phone Kae Mishra MD Primary Care Provider [phone] Gonzalo Gomez MD, PhD Unavailable [phone] Encounter Details Date Type Department Care Team (Late st Contact Info) Description 08/31/2019 Ancillary Orders [facility] Maternal Medicine Obstetrics [address] [place] [address], 4[address] Floor, [address] [place] [address] Hamida Pimentel MD [address] [place] [id number] [email or web address] High-risk in third trimester; Herpes genitalis; Intrauterine growth restriction (IUGR) affecting care of mother, third trimester, single or unspecified fetus; Mhsfcqn-Zboum-Ifeeq disease; Malpresentation before onset of labor, single or unspecified fetus Social History Tobacco Use Types Packs/Day Years [...] high school, GED, job training, learning the Sammarinese language, technical skills, or developing parenting skills)? [...] Description 03/21/2025 4:30 PM EST Office Visit [facility] Neuromuscular Service [address] [facility], [address]th [place] [address] Alok Smyth MD [address] [place] [id number] [email or web address] documented as of this encounter Results * US OB BIOPHYSICAL PROFILE WITH DOPPLER (08/31/2019 11:40 AM EDT) Anatomical Region Laterality Modality Abdomen, Pelvis, Uterus/Adnexa U ltrasound 08/31/2019 11:4 1 AM EDT Impressions 08/31/2019 12:04 PM EDT The biophysical profile is reassuring today however doppler findings are concerning for uteroplacental sufficiency that may have worsened since her last scan 08/27. The patient was transported to L&D for betamethasone administration and further monitoring as planned and the inpatient team was notified. AP Narrative 08/31/2019 12:04 PM EDT Requester: KAE MISHRA TECHNIQUE: US OB BIOPHYSICAL PROFILE WITH DOPPLER INDICATION: Maternal risk factor: IgA nephropathy, BMI greater than 45, brain abnormality. BPP without measurements Examination of the uterus reveals a single active fetus in vertex presentation with an anterior placenta. The heart rate and amniotic fluid volume appear normal. The biophysical profile is 8/8. Doppler interrogation of the umbilical artery was performed because of concern for well being. The umbilical artery Doppler reveals an elevated S/D ratio and intermittently absent end diastolic flow. The gestational age is 33 weeks and 4 days, based on established clinical dates, with an EDC of October 15, 2019. Procedure Note Hamida Pimentel MD - 08/31/2019 Requester: KAE MISHRA TECHNIQUE: US OB BIOPHYSICAL PROFILE WITH DOPPLER INDICATION: Maternal risk factor: IgA nephropathy, BMI greater than 45, brain abnormality. BPP without measurements Examination of the uterus reveals a single active fetus in vertexpresentation with an anterior placenta. The heart rate and amnioticfluid volume appear normal. The biophysical profile is 8/8. Doppler interrogation of the umbilical artery was performed because ofconcern for well being. The umbilical artery Doppler reveals anelevated S/D ratio and intermittently absent end diastolic flow. The gestational age is 33 weeks and 4 days, based on established clinicaldates, with an EDC of October 15, 2019. IMPRESSION: The biophysical profile is reassuring today however doppler findings areconcerning for uteroplacental sufficiency that may have worsened since herlast scan 08/27. The patient was transported to L&D for betamethasoneadministration and further monitoring as planned and the inpatient teamwas notified. AP us Hamida Pimentel MD [facility] OBSTETRIC Final Resu lt documented in this encounter Visit Diagnoses Diagnosis High-risk in third trimester Herpes genitalis Unspecified genital herpes Intrauterine growth restriction (IUGR) affecting care of mother, third trimester, single or unspecified fetus Uuzsohw-Vneuf-Dmfal disease Peroneal muscular atrophy Malpresentation before onset of labor, single or unspecified fetus High-risk in third trimester Herpes genitalis Unspecified genital herpes Intrauterine growth restriction (IUGR) affecting care of mother, third trimester, single or unspecified fetus Hoooooh-Emtge-Itohl disease Peroneal muscular atrophy Malpresentation before onset of labor, single or unspecified fetus documented in this encounter Additional Health Concerns Infection Onset Date Last Indicated Resolved Time Clearance-CoV Comment:Auto-resolved with negative COVID-19 PCR 08/31/2019 08/31/2019 08/31/2019 2:27 PM E DT CoV-Risk Comment:See [facility] note 09/1509/14/2019 09/14/2019 020 9:22 AM EDT documented as of this encounter Care Teams Landscape Artist Relationship Specialty Start Date End Date Kae Mishra MD [address] [place] [id number] PCP - General Internal Medicine 06/27/19 Gonzalo Gomez MD, PhD [address] [place] [id number] [email or web address] Neurology 01/20/23 documented as of this encounter Additional Source Comments The information contained in this document represents components of the legal health record. It is not the complete legal health record.[facility]
--- OUTSIDE RECORDS SUMMARY | 2025-01-18 15:05 | XMS_ITS | Clinical Summary ---
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 UTD PTL, infection and respiratory precautions reviewed at length, pt aware that she must report to [facility] if she has an emergency given distance from [facility] (has a virtual visit with [facility] to establish care) RK in 2 weeks given COVID outbreak and virtual visit in 1 week Assessment & Plan (07/17/2019 4:51 PM EDT): Routine: PNLs reviewed and UTD PTL, infection and respiratory precautions reviewed at length, pt aware that she must report to [facility] if she has an emergency given distance from [facility] RK in 2 weeks given COVID outbreak and hoping for the following appt consolidation 07/27: has ENT appt, will attempt to move OB follow up (Dr. Tinajero), peds mary lou, OB US to this date 08/06 : scheduled to see pulmonology to establish care, could have next OB follow up appt this day Assessment & Plan (07/11/2019 1:17 PM EDT): Routine: PNLs reviewed and UTD Hemorrhoids/constipation: rec'd colace BID as well as increased fluids and dietary changes PTL and respiratory precautions reviewed at length, pt aware that she must report to [facility] if she has an emergency given distance from [facility] RK weekly with pulmonology q 2 weeks Assessment & Plan (07/03/2019 3:11 PM EST): Routine: PNLs reviewed and UTD PTL and respiratory precautions reviewed at length, pt aware that she must report to [facility] if she has an emergency given distance from [facility] RK weekly with pulmonology q 2 weeks Assessment & Plan (06/26/2019 3:19 PM EST): Routine: PNLs reviewed and UTD Pt referred to L&D for inpatient work up for new onset hypoxia and tachycardia of unknown etiology Timing of outpatient follow up TBD Assessment & Plan (05/31/2019 5:51 PM EST): Routine: PNLs reviewed and UTD SAB precautions reviewed RK in 4 weeks Assessment & Plan (05/02/2019 2:59 PM EST): Routine: PNLs reviewed and UTD Genetics-cell free reassuring SAB precautions reviewed RK in 4 weeks with anatomic survey in 2 weeks Assessment & Plan (04/03/2019 10:00 AM EST): Routine: PNLs and cx today Genetics-interested, consented for cell free Plan US today to confirm viability SAB precautions reviewed RK in 4 weeks Assessment & Plan (08/29/2018 4:59 PM EDT): Routine: PNLs and cx today Genetics-interested, will schedule SAB precautions reviewed RK in 5 weeks (I am away in 4) Asthma 02/09/2012 04/03/2019 Overview (06/23/2014): Asthma Encounters Date Type Department Care Team Description 11/01/2024 9:19 AM EDT - 11/01/2024 11:59 PM EDT Hospital Encounter [facility] for Outpatient Care - Ultrasound [address] [place] [address] Isidro Sanchez MD Discharge Disposition: Home or Self Care 11/01/2024 Transcribe Orders [facility] for Outpatient Care, Radio Flouroscopy [address] [place] [address] Trang Schwartz 09/12/2024 Procedure Pass [facility] - Ultrasound [address] [place] [address] from Last 3 Months Immunizations Immunization Administration Dates Next Due Influenza Quadrivalent Preservative Free IM 06/2018 Influenza, Unspecified Formulation 03/22/2018, Pneumococcal polysaccharide PPSV23 02/11/2012(De melquiadesd: Other) Tdap 07/10/2019 Family History Medical History Relation Comments Migraines Brother No Known Problems Father of the Baby Arrhythmia Mother Hypertension Mother Osteopenia Mother Other Mother pseudo tumor star ebri No Known Problems Sister 1 Other Sister 2 fatty liver dise ase Bleeding Disorder Neg Hx Relation Status Comments Brother Alive Father Alive no contact Father of the Baby Alive Mother Alive Sister 1 Alive Sister 2 Alive Social History Tobacco Use Types Packs/Day Years Used Date Smoking Tobacco: Never Smokeless Tobacco: Never Tobacco Cessation:Counseling Given: Not Answered Alcohol Use Standard Drinks/Week Comments Yes 4 (1 standard drink = 0.6 oz pure alcohol) none since learning of Child or Family Care Answer Date Record ed Do you have problems with on e of the following making it difficult for you to work, study, or receive health care? No 07/09/2019 Education Answer Date Recorded Are you interested in more education? Not on zaki e 08/29/2022 Are you concerned about learning? Not on file 08/29/2022 No 08/29/2022 No 08/29/2022 Food Answer Date Recorded Within the past [...] appointments or from getting medications? No 07/09/2019 Digital Access Answer Date Recorded No 09/25/2022 No 09/25/2022 Reliable internet access at home? Not on file 09/25/2022 Device with a working camera? Not on file Comments No Sex and Gender Information Value Date Recorded Sex Assigned at Female 07/09/2019 9:29 PM EDT Legal Sex Female 4:57 PM EST Gender Identity Female 07/09/2019 9:29 PM EDT Sexual Orientation Straight 07/09/2019 9: 29 PM EDT Last Filed Vital Signs Vital Sign Reading Time Taken Comments Blood Pressure 114/79 08/21/2024 8:01 AM EDT Pulse 92 08/21/2024 8:01 AM EDT Temperature 35.6 C (96 F) 08/21/2024 8:01 AM EDT Respiratory Rate 20 09/20/2019 10:10 AM EDT Oxygen Saturation 96% 08/21/2024 8:01 AM EDT Inhaled Oxygen Concentration 30% 09/19/2019 8 :18 AM EDT Weight 105.2 kg (232 lb) 08/21/2024 8:01 AM EDT Height 162.6 cm (5' 4 ) 08/31/2019 3:30 PM EDT Body Mass Index 39.82 08/31/2019 3:30 PM EDT Plan of Treatment Upcoming Encounters Date Type Department Care Team ([facility] st Contact Info) Description 03/21/2025 4:30 PM EST Office Visit [facility] Neuromuscular Service [address] [facility], 8th [place] [address] Alok Smyth MD [address] [place] [address] [place] [address] [email or web address] Health Maintenance Due Date Last Done Comments DEPRESSION SCREENING 2003 HEPATITIS C SCREENING 07/18/2009 PNEUMOCOCCAL VACCINES (0-49 years) (2 of 2 - PCV) 03/29/2019 03/29/2018 PAP SMEAR 04/03/2022 04/03/2019, 04/03/2019 INFLUENZA VACCINE (#1) 2024 2, 04/03/2019, 03/22/2018, Additional history exists COVID-19 VACCINE ( - 2024- season) 2025 02/06/2021, 01/09/2021 Adult Td,Tdap Booster 07/09/2029 07/10/2019 HIV ONE-TIME SCREENING (18-65 YEARS) Completed 04/03/2019 SMOKING STATUS SCREENING (Once After 26 Yrs) Completed 08/21/2024 HEPATITIS A VACCINES Aged Out No long er eligible based on patient's age to complete this topic HIB VACCINES Aged Out No longer eligi ble based on patient's age to complete this topic MENINGOCOCCAL VACCINES (ACWY) Aged Out No longer eligible based on patient's age to complete this topic MENINGOCOCCAL VACCINES (B) Aged Out N o longer eligible based on patient's age to complete this topic Medical Devices Implanted Type Area Correction Worker Device Identifier Shelf Expiration Date Model / Serial / Lot Dominic #[address] Since 2006 Procedures Procedure Name Priority Date/Time Associated Diagnosis Comments IR INJECTION Routine 11/01/2024 9:52 AM EDT Right shoulder pain PAP TEST Routine 04/03/2019 12:00 AM EST from Last 3 Months or Most Recently Relevant to Health Maintenance Results * IR Non-Spine Injection; Botox; Thoracic Outlet; Pectoralis Minor; Right; Diagnostic & Therapeutic (11/01/2024 9:52 AM EDT) Anatomical Region Laterality Modality L-spine Ultrasound 11/01/2024 12:3 6 PM EDT Impressions 11/01/2024 12:37 PM EDT Successful ultrasound guided injection as described above. Narrative 11/01/2024 12:37 PM EDT ULTRASOUND GUIDED RIGHT PECTORALIS MINOR BOTOX INJECTION OPERATORS: Dr. Hayden Sultana CONSENT: The patient was informed of the nature of the proposed procedure. The purposes, alternatives, risks, and benefits were explained and discussed. All questions were answered and written consent was obtained. A time-out was performed prior to initiation of the procedure to reconfirm the patient's name, date of , and site of procedure. MEDICATIONS: 30 units of Botox, pectoralis minor muscle PROCEDURE: After skin antisepsis and placement of sterile drapes, a 22-gauge 3.5-inch needle was advanced into the right pectoralis minor muscle under ultrasound guidance. Once needle placement was considered satisfactory, medication was injected and the needle subsequently removed. COMPLICATIONS: None. Procedure Note Hayden Sultana MD - 11/01/2024 ULTRASOUND GUIDED RIGHT PECTORALIS MINOR BOTOX INJECTION OPERATORS: Dr. Hayden Sultana CONSENT: The patient was informed of the nature of the proposed procedure. Thepurposes, alternatives, risks, and benefits were explained and discussed.All questions were answered and written consent was obtained. A time-out was performed prior to initiation of the procedure to reconfirmthe patient's name, date of , and site of procedure. MEDICATIONS: 30 units of Botox, pectoralis minor muscle PROCEDURE: After skin antisepsis and placement of sterile drapes, a 22-gauge 3.5-inchneedle was advanced into the right pectoralis minor muscle underultrasound guidance. Once needle placement was considered satisfactory,medication was injected and the needle subsequently removed. COMPLICATIONS: None. IMPRESSION: Successful ultrasound guided injection as described above. us Isidro Sanchez MD IMG IR MSK Final Resul t * (ABNORMAL) Pap Smear (04/03/2019 12:00 AM EST) 04/03/2019 04/03/2019 2:1 5 PM EST Narrative SEE NARRATIVE - 04/12/2019 4:41 [place] [address] DIESEL POWERPLANT SUPERVISOR Cytology Report Patient Name: SYDNEE DUBOSE : 1990 (Age: 28) Sex: F Institution: [facility] Location: [facility] Date of Collection: 04/03/2019 Date of Reported: 04/12/2019 16:41 Results to: Hamida Pimentel MD FINAL DIAGNOSIS A. CERVICAL, LIQUID BASED SPECIMEN: SPECIMEN ADEQUACY: Satisfactory for evaluation. INTERPRETATION: EPITHELIAL CELL ABNORMALITY - SQUAMOUS. Low grade squamous intraepithelial lesion. ADDITIONAL INFORMATION: This specimen was prescreened using the [employer] Imaging System. Electronically Signed Out By: Harpreet Mendez [facility](ASCP)MB By his/her signature above, the pathologist listed as making the Final Diagnosis certifies that he/she has personally reviewed the case and confirmed the diagnosis. All slides and stains were of sufficient quality to establish the diagnosis, unless otherwise stated. Cervical cytology is a screening test primarily for squamous cancers and precursors and has associated false-negative and false-positive results. New technologies such as liquid-based preparations may decrease but will not eliminate all false-negative results. Regular sampling and follow-up of unexplained clinical signs and symptoms are recommended to minimize false negative results. CLINICAL HISTORY Date of Last Menstrual Period: Menstrual History: Hx ASCUS SPECIMEN SOURCE A: CERVICAL, LIQUID BASED SPECIMEN us Hamida Pimentel MD CYTOLOGY ORDERABLES Final R esult SEE NARRATIVE from Last 3 Months or Most Recently Relevant to Health Maintenance Insurance MEDICARE REPLACEMENT [employer] [id number] [place] [address] MEDICARE REPLACEMENT [facility] MEDIC[place] [address] [place] [address] MEDICARE REPLACEMENT [facility] MEDICARE REPLACEMENT [facility] CARE MEDICARE REPLACEMENT [place] [id number] Advance Directives For more information, please contact: [phone] (9AM - 5PM [facility], Wednesday-Wednesday) Documents on File Type Date Recorded Patient Tip Banding Machine Operator Expl anation Healthcare Proxy 09/14/2019 Healthcare Proxy * Full Code (Presumed) (Latest Code Status on File) Date Activated Date Inactivated Comments 09/15/2019 10:25 PM * Full Code (Presumed) Date Activated Date Inactivated Comments 09/14/2019 10:35 AM 09/15/2019 10:25 PM * Full Code (Presumed) Date Activated Date Inactivated Comments 08/31/2019 4:45 PM 09/14/2019 10:35 AM * Full Code (Presumed) Date Activated Date Inactivated Comments 06/26/2019 9:43 PM 06/30/2019 8:16 PM * Full Code (Presumed) Date Activated Date Inactivated Comments 06/26/2019 2:35 PM 06/26/2019 9:43 PM Care Teams Scraper Hand Relationship Specialty Start Date End Date Jayshree Mishra MD [address] [place] [address] PCP - General Internal Medicine 06/27/19 Gonzalo Gomez MD, PhD [address] [place] [address] [email or web address] Neurology 01/20/23 Additional Source Comments The information contained in this document represents components of the legal health record. It is not the complete legal health record.[facility]
--- OUTSIDE RECORDS SUMMARY | 2025-01-18 15:05 | XMS_ITS | Encounter Summary ---
Author Organization [facility] Address [address] [place] [address] Phone Care Team Providers Care Brim Greaser Operator Name Role Phone Jayshree Mishra MD Primary Care Provider [phone] Gonzalo Gomez MD, PhD Unavailable [phone] Encounter Details Date Type Department Care Team (Late st Contact Info) Description 09/12/2024 Procedure Pass [facility] for Outpatient Care - Ultrasound [address] [place] [address] Social History Tobacco Use Types Packs/Day Years [...] Upcoming Encounters Date Type Department Care Team ([facility] st Contact Info) Description 03/21/2025 4:30 PM EST Office Visit [facility] Neuromuscular Service [address] [facility], 8th [place] [address] Alok Smyth MD [address] [place] [address] [address] [place] [address] [email or web address] documented as of this encounter Visit Diagnoses Not on filedocumented in this encounter Care Teams Brim Greaser Operator Relationship Specialty Start Date End Date Jayshree Mishra MD [address] [place] [address] PCP - General Internal Medicine 06/27/19 Gonzalo Gomez MD, PhD [address] [place] [address] Neurology 01/20/23 documented as of this encounter Additional Source Comments The information contained in this document represents components of the legal health record. It is not the complete legal health record.[facility]
--- OUTSIDE RECORDS SUMMARY | 2025-01-18 15:05 | XMS_ITS | Clinical Summary ---
Author Organization [facility] Address [address] [place] [address] Care Team Providers Care Carving Machine Operator Name Role Phone Unavailable Primary Care Provider Unavailabl e Encounters Date Type Department Care Team Description 12/19/2024 Transcribe Orders [facility] PRIMARY CARE SCAN Rashaun Irwin MD Paralysis of vocal cords and larynx, unspecified (Primary Dx); Tracheostomy status (HCC); Hereditary motor and sensory neuropathy from Last 3 Months Social History Tobacco Use Types Packs/Day Years Used Date Smoking Tobacco: Never Assessed Comments Unknown Sex and Gender Information Value Date Recorded Sex Assigned at Not on file Legal Sex Female 10:33 AM EDT Gender Identity Not on file Sexual Orientation Not on file Plan of Treatment Health Maintenance Due Date Last Done Comments Hepatitis C Virus Screening 1990 HIV Screening 07/18/2004 DTaP/Tdap/Td Vaccines (1 - Tdap) 07/18/2010 Hepatitis B Vaccines (1 of 3 - 19+ 3-dose series) 07/18/2010 HPV Vaccines (1 - 3-dose SCD M series) 07/18/2018 COVID-19 Vaccine ( - 2023-2 5 season) 2025 Pneumococcal Vaccine: Pediat antoni (0-5 Years) and At-Risk Patients (6 to 49 Years) Aged Out No longer eligible b ased on patient's age to complete this topic
--- OUTSIDE RECORDS SUMMARY | 2025-01-18 15:05 | XMS_ITS | Encounter Summary ---
Author Organization [facility] Address [address] [place] [address] Phone Care Team Providers Care Dog Raiser Name Role Phone Jayshree Mishra MD Primary Care Provider Gonzalo Gomez MD, PhD Unavailable [phone] Encounter Details Date Type Department Care Team (Late st Contact Info) Description 11/01/2024 Transcribe Orders [facility] for Outpatient Care, Radio Flouroscopy [address] [place] [address] Trang Schwartz [address] [place] [phone] Social History Tobacco Use Types Packs/Day Years [...] Description 03/21/2025 4:30 PM EST Office Visit [facility] Neuromuscular Service [address] [place] [address] Alok Smyth MD [address] [facility] [address] [place] [address] [email or web address] documented as of this encounter Visit Diagnoses Not on filedocumented in this encounter Care Teams Dog Raiser Relationship Specialty Start Date End Date Jayshree Mishra MD [address] [place] [address] PCP - General Internal Medicine 06/27/19 Gonzalo Gomez MD, PhD [address] [facility] [place] [address] [email or web address] Neurology 01/20/23 documented as of this encounter Additional Source Comments The information contained in this document represents components of the legal health record. It is not the complete legal health record.[facility]
--- OUTSIDE RECORDS SUMMARY | 2025-01-18 15:05 | XMS_ITS | Encounter Summary ---
Author Organization [facility] Address [address] [place] [address] Phone Care Team Providers Care Packing Shed Supervisor Name Role Phone Unknown, Unknown Primary Care Provider Jayshree Caldera MD Primary Care Provider Gonzalo Gomez MD, PhD Unavailable [phone] Encounter Details Date Type Department Care Team (Late Contact Info) Description 05/25/2019 Procedure Pass [facility] for Outpatient Care - MRI [address] [facility], 6th [place] [address] Social History Tobacco Use Types Packs/Day Years [...] Description 03/21/2025 4:30 PM EST Office Visit [facility] Neuromuscular Service [address] [facility], [address]th [place] [address] Alok Smyth MD 55 [facility] [address] [place] [address] [email or web address] documented as of this encounter Visit Diagnoses Not on filedocumented in this encounter Additional Health Concerns Infection Onset Date Last Indicated Resolved Time Clearance-CoV Comment:Auto-resolved with negative COVID-19 PCR 08/31/2019 08/31/2019 08/31/2019 2:27 PM E DT CoV-Risk Comment:See [facility] note 09/1509/14/2019 09/14/2019 020 9:22 AM EDT documented as of this encounter Care Teams Packing Shed Supervisor Relationship Specialty Start Date End Date Unknown, Unknown, MD PCP - General 04/20/19 06/26/19 Jayshree Mishra MD [address] [place] [address] PCP - General Internal Medicine 06/27/19 Gonzalo Gomez MD, PhD [address] [place] [address] [email or web address] Neurology 01/20/23 documented as of this encounter Additional Source Comments The information contained in this document represents components of the legal health record. It is not the complete legal health record.[facility]
--- OUTSIDE RECORDS SUMMARY | 2025-01-18 15:05 | XMS_ITS | Encounter Summary ---
Author Organization [facility] Address [address] [place] [address] Phone Care Team Providers Care Negative Checker Name Role Phone Jayshree Mishra MD Primary Care Provider [phone] Unknown, Unknown Primary Care Provider Jayshree Caldera MD Primary Care Provider [phone] Gonzalo Gomez MD, PhD Unavailable [phone] Reason for Referral * Consultation (Routine) - Closed Specialty Diagnoses / Procedures Referred By Roseann giles Referred To Contact System, Provider Not In, PhD [facility] [address] [address] Referral ID Status Reason Start Date Expiration Date Visits Re quested Visits Authorized [id number] Closed 08/09/2018 08/10/2019 1 1 Encounter Details Date Type Department Care Team (Late st Contact Info) Description 08/09/2018 Transcribe Orders [facility] Rick IGNACIO [address] [facility], 4th Floor, [address] [place] [address] Hamida Pimentel MD [address] [place] [address] [email or web address] Social History Tobacco Use Types Packs/Day Years [...] Description 03/21/2025 4:30 PM EST Office Visit [facility] Neuromuscular Service [address] [place] [address] Alok Smyth MD [address] [place] [address] [address] [place] [address] [email or web address] Scheduled Referrals Name Type Priority Associated Diagnoses Order Schedule Ambulatory referral to [facility] OB Outpatient Referral Routine Ordered: 08/09/2018 documented as of this encounter Visit Diagnoses Not on filedocumented in this encounter Additional Health Concerns Infection Onset Date Last Indicated Resolved Time Clearance-CoV Comment:Auto-resolved with negative COVID-19 PCR 08/31/2019 08/31/2019 08/31/2019 2:27 PM E DT CoV-Risk Comment:See [facility] note 09/1509/14/2019 09/14/2019 020 9:22 AM EDT documented as of this encounter Care Teams Negative Checker Relationship Specialty Start Date End Date Jayshree Mishra MD [address] [place] [address] PCP - General Internal Medicine 07/18/18 04/19/19 Unknown, Unknown, [address] [place] [address] PCP - General 04/20/19 06/26/19 Jayshree Mishra MD [address] [place] [address] PCP - General Internal Medicine 06/27/19 Gonzalo Gomez MD, PhD [address] [facility] [place] [address] Neurology 01/20/23 documented as of this encounter Additional Source Comments The information contained in this document represents components of the legal health record. It is not the complete legal health record.[facility]
--- OUTSIDE RECORDS SUMMARY | 2025-01-18 15:05 | XMS_ITS | Encounter Summary ---
Author Organization [facility] Address [address] [place] [address] [place] [address] Phone Care Team Providers Care Primary Products Inspectors Name Role Phone Jayshree Mishra MD Primary Care Provider Unknown, Unknown Primary Care Provider Jayshree Caldera MD Primary Care Provider [phone] Gonzalo Gomez MD, PhD Unavailable [phone] Encounter Details Date Type Department Care Team (Latest Contact Info) Description 08/29/2018 Ancillary Orders [facility] Rick IGNACIO [address] [facility], 4th Floor, [address] [place] [address] Hamida Pimentel MD [address] [place] [address] [email or web address] Nuchal translucency of fetus on ultrasound Social History Tobacco Use Types Packs/Day [...] Upcoming Encounters Date Type Department Care Team ( Contact Info) Description 03/21/2025 4:30 PM EST Office Visit [facility] Neuromuscular Service [address] [place] [address] Alok Smyth MD 55 [facility] [address] [place] [address] [email or web address] documented as of this encounter Visit Diagnoses Diagnosis Nuchal translucency of fetus on ultrasound documented in this encounter Additional Health Concerns Infection Onset Date Last Indicated Resolved Time Clearance-CoV Comment:Auto-resolved with negative COVID-19 PCR 08/31/2019 08/31/2019 08/31/2019 2:27 PM E DT CoV-Risk Comment:See [facility] note 09/1509/14/2019 09/14/2019 020 9:22 AM EDT documented as of this encounter Care Teams Primary Products Inspectors Relationship Specialty Start Date End Date Jayshree Mishra MD [address] [place] [address] PCP - General Internal Medicine 07/18/18 04/19/19 Unknown, Unknown, [address] [place] [address] PCP - General 04/20/19 06/26/19 Jayshree Mishra MD [address] [place] [address] PCP - General Internal Medicine 06/27/19 Gonzaol Gomez MD, PhD [address] [place] [address] [place] [address] [email or web address] 01/20/23 documented as of this encounter Additional Source Comments The information contained in this document represents components of the legal health record. It is not the complete legal health record.[facility]
== END 2025-01-18 13:32 | disposition home or self-care (01) ==
LOC: HO.HPS 13:02
PROVIDERS: PCP Internal Medicine Critical Care Medicine; Visit Provider Hospitalist
DX: G60.0 Hereditary motor and sensory neuropathy (principal); J45.41 Moderate persistent asthma with (acute) exacerbation; R09.02 Hypoxemia; Z93.0 Tracheostomy status; K21.9 Gastro-esophageal reflux disease without esophagitis; J38.00 Paralysis of vocal cords and larynx, unspecified
CPT/HCPCS: 99214; G2211

== ENCOUNTER → 2025-01-18 13:02 | Outpatient (BNVA) | payer OTHER, SELFPAY | PROVIDERS: PCP Internal Medicine Critical Care Medicine; Visit Provider Hospitalist | DX: J45.41 Moderate persistent asthma with (acute) exacerbation (principal); J38.00 Paralysis of vocal cords and larynx, unspecified; G60.0 Hereditary motor and sensory neuropathy; K21.9 Gastro-esophageal reflux disease without esophagitis; R09.02 Hypoxemia; Z93.0 Tracheostomy status | CPT/HCPCS: 99212 ==

== ENCOUNTER 2025-03-05 09:40 | Inpatient (IN) | payer OTHER, SELFPAY ==
--- OUTSIDE RECORDS SUMMARY | 2024-06-28 05:15 | XMS_ITS ---
Author Organization [facility] Address [address] [place] [address] Care Team Providers Care Counselor Camp Name Role Phone MICHELINE HARRINGTON Unavailable [phone] REASON FOR VISIT 6 week f/u Medications Medication SIG (Take, Route, Fr equency, Duration) Notes Start Date End Date Status Phentermine HCl 30 MG 1 capsule Orally O nce a day; Duration: 30 days 05/16/2024 Active Encounters Encounter Location Date Provider Diagnosis [facility] [address] [place] [address] 06/28/2024 MICHELINE HARRINGTON Plan Of Treatment Next Appt Details Provider Name:MICHELINE HARRINGTON, 03/06/2025 09:45:00 AM, [address] [place], [address], Progress Notes * Jessica DUBOSEDOB:1990 (34 yo F)Acc No.[id number]:06/28/2024 Patient: Brandan PAPPASlucia Provider: Jerod FARRIS PA-C :1990 A ge:33 Y S ex:Female Date:06/28/2024 Address:[address] [place], [place] [id number] Subjective: * Chief Complaints: * 1 . 6 week f/u. * Medical History: * Medications: T aking Phentermine HCl 30 MG Capsule 1 capsule Orally Once a day Objective: * Vitals: Assessment: Plan: * Treatment: * Images: Billing Information: * Visit Code: * Procedure Codes: * Electronic signature of SHILOH HARRINGTON PA-C on 03/05/2025 at 12:20 PM EST Sign off status: Pending * Provider: Jerod FARRIS PA-C Date: 0 06/28/2024 Generated for Ana Maria armstrong/Fior/Tomeka on: 1 05/05/2024 12:20 PM EST
--- OUTSIDE RECORDS SUMMARY | 2024-11-30 05:15 | XMS_ITS ---
Author Organization [facility] [address] Address [address] [place] [address] Care Team Providers Care Director Of Slot Operations Name Role Phone MICHELINE HARRINGTON Unavailable [phone] Medications Medication SIG (Take, Route, Fr equency, Duration) Notes Start Date End Date Status Phentermine HCl 30 MG 1 capsule Orally O nce a day; Duration: 30 days 05/16/2024 Active Encounters Encounter Location Date Provider Diagnosis [facility] [address] [place] [address] 11/30/2024 MICHELINE HARRINGTON Plan Of Treatment Next Appt Details Provider Name:MICHELINE LEN, 03/06/2025 09:45:00 AM, [address] , [place], [address], Progress Notes * Jessica DUBOSEDOB:1990 (34 yo F)Acc No.[id number]:11/30/2024 Patient: Jessica PAPPAS Provider: Jerod FARRIS PA-C :1990 A ge:34 Y S ex:Female Date:11/30/2024 Address:[address] [place], [place] [id number] Subjective: * Chief Complaints: * * Medical History: * Medications: T aking Phentermine HCl 30 MG Capsule 1 capsule Orally Once a day Objective: * Vitals: Assessment: Plan: * Treatment: * Images: Billing Information: * Visit Code: * Procedure Codes: * Electronic signature of SHILOH HARRINGTON PA-C on 03/05/2025 at 12:20 PM EST Sign off status: Pending * Provider: Jerod FARRIS PA-C Date: 0 11/30/2024 Generated for Ana Maria armstrong/Fior/Tomeka on: 1 05/05/2024 12:20 PM EST
[2025-03-05] VITALS (7 sets, daily range): BP systolic 94–115; BP diastolic 48–61; PULSE 97–110; RESP 17–24; TEMP 36.7–37; O2SAT 94–109; BMI 38.6
--- NOTE | ~2025-03-05 | XR_ITS ---
EXAMINATION: XR CHEST CLINICAL INFORMATION: cough COMPARISON: November 29, 2024. TECHNIQUE: PA and lateral views FINDINGS: Patchy opacities both lower hemithoraces. No hyperinflation. No pneumothorax. No pleural effusion. Cardiomediastinal silhouette size is normal. Tracheostomy tube remains in unchanged position. Mild S-shaped curvature of the thoracolumbar spine and spondylosis. XR/XR chest 2V IMPRESSION: Atelectasis versus acute airspace disease, right middle lung lobe and lingula. Electronically signed by: See Mendoza MD 03/05/2025 11:05 AM [facility]
--- NOTE | 2025-03-05 09:56 | ED_ITS ---
HPI - General Adult General Chief complaint: Upper Respiratory Symptoms Stated complaint: trache inf? indigo vat tender cloth rec'd pt come in Time Seen by Provider: 03/05/25 10:04 Source: patient and old records reviewed Mode of arrival: ambulatory Limitations: no limitations History of Present Illness ED Provider: PAKO BUSH narrative: 34-year-old female with past medical history of CMT status post vocal cord paralysis and has tracheostomy in place for 18 years. She does have a history of Staph aureus infection and pneumonia, has history of prolonged admission due to pneumonia. She follows with Dr. Irwin from pulmonology. She comes in today with 1 week of not feeling well, cough, with increased drainage and mucus from trach site, she spoke with Dr. Irwin who recommended she come to the ED for further evaluation. She has not been on any antibiotics, has not traveled, but her 5-year-old daughter has had a bit of runny nose. She denies fevers. MD complaint: URI Onset (ago): week(s) (1) Location: chest Radiation: non-radiation Severity: mild Relieving factors: none Exacerbating factors: movement Associated symptoms: cough, fever/chills, loss of appetite, malaise and shortness of breath Treatments prior to arrival: none Related Data Home Medications ?Medication ?Instructions ?Recorded ?Confirmed Oxygen Home Use 04/04/21 05/20/21 nebulizers 11/11/22 diclofenac sodium 1 % topical gel 2 g topical QID PRN Pain 03/05/25 lidocaine 4 % topical patch 2 patch topical Q12H 03/05 (Salonpas (lidocaine)) tirzepatide (weight loss) 5 mg/0.5 5 mg subcut QWEEK 1 05/05/24 03/05/25 mL subcutaneous pen injector (Zepbound) Previous Rx's ?Medication ?Instructions ?Recorded levalbuterol HCl 1.25 mg/3 mL 1.25 mg (3 mL) inhalatio n BID 30 08/22/24 solution for nebulization days #180 mL sodium chloride 3 % for 4 ml inhalation BID 30 days #240 mL 08/22/24 nebulization methocarbamol 750 mg tablet 1,500 mg (2 x 750 mg) PO Q 8H PRN 11/27/24 pain, moderate #24 tabs budesonide 0.5 mg/2 mL suspension 0.5 mg (2 mL) inhala tion BID 30 12/14/24 for nebulization days #120 mL chlorhexidine gluconate 0.12 % 15 ml buccal DAILY 30 d ays #473 mL 12/17/24 mouthwash Allergies Allergy/AdvReac Type Severity Reaction Status Date / Time prednisone (PREDNISONE) Allergy Severe Difficulty Verified 03/05/25 09:59 Breathing Review of Systems 2 Review of Systems: Constitutional : No Fever, pos Chills ENT/Mouth : No sore throat, No Rhinorrhea, No Swallowing Difficulty Eyes: No Eye Pain, No Swelling, No Redness Cardiovascular : No Chest Pain, positive SOB, No Orthopnea, positive Edema Respiratory : pos Cough, pos Sputum, No Wheezing, positive dyspnea Gastrointestinal : No Nausea, No Vomiting, No Diarrhea, No abdominal Pain, No Hematochezia, No Melena Genitourinary : No Dysuria, No Urinary Frequency, No Hematuria Musculoskeletal : No joint pain, No Myalgias Skin : No Skin Lesions, No rash Neuro : No Weakness, No Numbness, No Dizziness, No Headache All other systems reviewed and are negative [facility] Past Medical History Medical History (Updated 03/05/25 @ 11:31 by Yari Zendejas DO) 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 Asthma Hemoptysis Bronchopneumonia Dysphagia GERD (gastroesophageal reflux disease) Hypoxia Tachycardia Chronic respiratory failure Chest pain Pneumonia delivery due to maternal disorder, delivered, curr hospitaliz Tracheostomy in place Surgical History H/O tracheostomy H/O colonoscopy History of laryngoscopy History of bronchoscopy Previous section Social History Social History Household Members: Family Housing: House Are you a primary animal daycare provider to a significant other at home: No Do you presently have visiting nurse or other home services: No Alcohol intake: never Comment: lower extremity braces, bilateral Patient Tobacco Use Status: Never used Tobacco Second Hand Smoke Exposure: No Advance Directives: Yes Advance Directives Information Provided: No Advance Directives on File: No Advance Directives Date on File: 11/18/24 service: No Current occupational status: disabled Current occupation: right hand dominant Physical Exam ED Vital Signs: Vital Signs - 24 hr 03/05/25 09:56 03/05/25 10:51 Temperature 98.2 F 98.5 F Pulse Rate 110 H 97 Respiratory Rate 20 17 Blood Pressure 107/60 94/57 L Pulse Oximetry 97 96 Oxygen Delivery Method Room Air Room Air BMI result Body Mass Index 38.6 Appearance: Alert. Oriented X3. No acute distress. Eyes: Pupils equal, round and reactive to light. ENT: Pharynx normal. Neck: Normal inspection. Neck supple. Trach site is mildly erythematous but there is thick yellow brown sputum noted which I sent for culture CVS: Normal heart rate and rhythm. Pulses normal. Respiratory: No respiratory distress. Breath sounds diminished with rhonchi and I hear decreased breath sounds on the R side Abdomen: Soft and nontender. Skin: Skin warm and dry. Normal skin color. Normal skin turgor. Extremities: No lower extremity edema. Neuro: Oriented X 3. No motor deficit. No sensory deficit. CN2-12 intact Course Course Course Narrative: Rapid medical examination performed in triage by Courtney Locke PA-C. Patient is a 34 year old assigned female at presenting to the emergency department with a possible tracheal infection. Patient states that she has had increased sputum from the stoma and is having pain so she is concerned for infection. Detailed physical exam and review of systems are deferred to the assistant restaurant general manager. Labs ordered. Patient placed back in the waiting room pending room availability and results. Medical Decision Making Medical Decision Making [facility] Narrative: 34-year-old female with past medical history of CMT status post vocal cord paralysis and has tracheostomy in place for 18 years who now presents with increased sputum production chills not feeling well she does have thick brown sputum coming out of the stoma. Given her history of staph infection I am going to start on IV doxycycline and IV ceftriaxone. She will get labs and chest x- ray given concern for right middle lobe pathology on physical exam. I anticipate she will be admitted given her prior history Differential Diagnosis Differential Diagnoses: The differential diagnosis associated with the presentation includes Pneumonia, tracheobronchitis, viral syndrome Admission/Observation Consideration of admission/observation: Escalation of care including admission/observation considered Given history of staph infection and trach with increased secretions I think she would benefit for overnight observation and IV antibiotics Consult Healthcare Provider Management of the patient was discussed with: Hospitalist (Will admit) Lab Data [facility] Lab Attestation statement: I reviewed the patient's lab results. 03/05/25 10:06 03/05/25 10:06 Labs: Lab Results 03/05/25 03/05/25 Range/Units 10:06 10:07 WBC 8.1 (4.8-10.8) X10*3/uL RBC 4.46 (4.20-5.50) X10*6/uL Hgb 12.1 (12.0-16.0) g/dl Hct 38.5 (37.0-47.0) % MCV 86.3 (80.0-98.0) fL MCH 27.1 (27.0-33.0) pg MCHC 31.4 (31.0-35.0) g/dl RDW 14.2 (11.0-16.0) % Plt Count 183 (160-400) X10*3/uL MPV 9.8 (9.4-12.3) fL Immature Gran % (Auto) 0.2 (0.0-0.4) % Neut % (Auto) 78.5 H (45-73) % Lymph % (Auto) 13.4 L (20-40) % Hidalgo % (Auto) 7.1 (2-11) % Eos % (Auto) 0.4 (0-4) % Baso % (Auto) 0.4 (0-2) % Lymph # (Auto) 1.1 L (1.2-4.9) X10*3/uL Hidalgo # (Auto) 0.6 (0.1-1.2) X10*3/uL Eos # (Auto) 0.0 (0.0-0.4) X10*3/uL Baso # (Auto) 0.0 (0.0-0.2) X10*3/uL Abs Immat Gran (auto) 0.02 (0.00-0.03) X10*3/uL Absolute Neuts (auto) 6.3 (2.0-8.3) x10*3/uL Absolute Nucleated RBC 0.000 (0.0-0.012) X10*3/uL Nucleated RBC % (auto) 0.0 (0.0-0.2) /100WBC ESR 35 H (0-20) MM/HR Sodium 141 (135-145) mmol/L Potassium 3.8 (3.3-5.1) mmol/L Chloride 109 H (96-108) mmol/L Carbon Dioxide 26 (22-29) mmol/L Anion Gap 10 L (12-20) BUN 13 (9-16) mg/dL Creatinine 0.45 L (0.5-1.4) mg/dL Estim Creat Clear Calc 206.7 Estimated GFR > 60 Random Glucose 93 (60-115) mg/dL Calcium 9.2 (8.4-10.2) mg/dL Total Bilirubin 0.4 (0.0-1.0) mg/dL AST 27 (5-31) U/L ALT 17 (0-31) U/L Alkaline Phosphatase 54 (39-117) U/L C-Reactive Protein 4.51 H (< or = 0.50) mg/dL Total Protein 7.3 (6.5-8.0) g/dL Albumin 4.3 (3.5-5.0) g/dL Independent Interpretation I performed an independent interpretation of an: Plain X-Ray (Consolidation noted in right middle lobe) Radiology Impression Discussion of test interpretation with radiology: I have reviewed the radiologist's reading. External Record Review External record reviewed: Inpatient record, Outpatient record, Prior outpatient labs and Prior outpatient radiology Discharge Plan Discharge Clinical Impression: Tracheobronchitis Pneumonia Qualifiers: Pneumonia type: due to unspecified organism Laterality: right Lung location: m iddle lobe of lung Qualified Code(s): J18.9 - Pneumonia, unspecified organism Patient Disposition: Admitted As Inpatient Print Language: Cook Islander
[2025-03-05 10:10] LABS: MANUAL DIFF FLAG NO
[2025-03-05 10:13] LABS: Hematocrit 38.5 % (37.0-47.0); Hemoglobin 12.1 g/dl (12.0-16.0); Imm Gran Abs Auto 0.02 X10*3/uL (0.00-0.03); Imm Gran Pct Auto 0.2 % (0.0-0.4); Lymphocytes Absolute Auto 1.1 X10*3/uL (1.2-4.9); Mean Corpuscular HGB Conc 31.4 g/dl (31.0-35.0); Mean Corpuscular Hemoglobin 27.1 pg (27.0-33.0); Mean Corpuscular Volume 86.3 fL (80.0-98.0); NRBC Abs Auto 0.000 X10*3/uL (0.0-0.012); NRBC Pct Auto 0.0 /100WBC (0.0-0.2); Platelet Count 183 X10*3/uL (160-400); Red Blood Count 4.46 X10*6/uL (4.20-5.50); White Blood Count 8.1 X10*3/uL (4.8-10.8)
[2025-03-05 10:31] LABS: Alanine Aminotransferase 17 U/L (0-31); Albumin Level 4.3 g/dL (3.5-5.0); Alkaline Phosphatase 54 U/L (39-117); Anion Gap 10 (12-20); Aspartate Amino Transferase 27 U/L (5-31); Blood Urea Nitrogen 13 mg/dL (9-16); Calcium 9.2 mg/dL (8.4-10.2); Carbon Dioxide 26 mmol/L (22-29); Chloride 109 mmol/L (96-108); Creatinine Clr Calc Pharmacy 206.7; Estimated Glomerular Filt Rate > 60; Potassium 3.8 mmol/L (3.3-5.1); Sodium 141 mmol/L (135-145); Total Protein 7.3 g/dL (6.5-8.0)
[2025-03-05] MEDS: Lactated Ringers 1,000 ML 999 ML IV (11:20)
[2025-03-05 11:55] LABS: COVID-19 Test Negative (Negative); IDNOW Serial# 55D5AD1C
--- NOTE | 2025-03-05 12:05 | PHA.MEDREC ---
Addendum entered by Edgard Christensen PharmD 03/05/25 12:38: reviewed Original Note: Pharmacy Consult ? Medication Reconciliation Pharmacy has completed the medication reconciliation. Spoke with pt and she confirmed her medications. Pt confirmed she still uses Budesonide nebulization, Levalbuterol HCL nebulization and Sodium Chloride nebulization solution together BID and states she has some at home i do on schedule and she took them this morning (03/05), she confirmed she takes Zepbound once a week on Wednesday (pt took it last 02/28).
[2025-03-05 12:13] LABS: IDNOW Serial# 58CA691E
[2025-03-05 12:14] LABS: Influenza B2 Negative (Negative)
--- OUTSIDE RECORDS SUMMARY | 2025-03-05 12:20 | XMS_ITS | Encounter Summary ---
Author Organization [facility] Address [address] [place] [address] [place] [address] Phone Care Team Providers Care Tax Economist Name Role Phone Jayshree Mishra MD Primary Care Provider [phone] Unknown, Unknown Primary Care Provider Jayshree Caldera MD Primary Care Provider [phone] Gonzalo Gomez MD, PhD Unavailable [phone] Reason for Referral * Consultation (Routine) - Closed Specialty Diagnoses / Procedures Referred By Roseann giles Referred To Contact Diagnoses 10 weeks gestation of System, Provider Not In, PhD [address] [address] Ob[facility] Referral ID Status Reason Start Date Expiration Date Visits Re quested Visits Authorized [id number] Closed 03/24/2019 03/24/2020 1 1 Encounter Details Date Type Department Care Team (Latest Contact Info) Description 03/24/2019 Transcribe Orders [facility] Rick IGNACIO [address] [place] [address], 4th Floor, [address] [place] [address] Unknown, Unknown, 10 weeks gestation of (Primary [...] Upcoming Encounters Date Type Department Care Team ([facility] st Contact Info) Description 03/21/2025 4:30 PM EST Office Visit [facility] Neuromuscular Service [address]th [place] [address] Alok Smyth MD [address] [place] [address] [address] [place] [address] [email or web address] Scheduled Referrals Name Type Priority Associated Diagnoses Order Schedule Ambulatory referral to [facility] OB Outpatient Referral Routine 10 weeks gestation [...] documented as of this encounter Care Teams Tax Economist Relationship Specialty Start Date End Date Jayshree Mishra MD [address] [place] [address] PCP - General Internal Medicine 07/18/18 04/19/19 Unknown, Unknown, [address] [place] [address] PCP - General 04/20/19 06/26/19 Jayshree Mishra MD [address] [place] [address] PCP - General Internal Medicine 06/27/19 Gonzalo Gomez MD, PhD [address] [place] [address] [place] [address] [email or web address] Neurology 01/20/23 documented as of this encounter Additional Source Comments The information contained in this document represents components of the legal health record. It is not the complete legal health record.[facility]
--- OUTSIDE RECORDS SUMMARY | 2025-03-05 12:20 | XMS_ITS | Encounter Summary ---
Author Organization [facility] Address [address] [place] [address] Phone Care Team Providers Care Vamp Marker Name Role Phone Jayshree Mishra MD Primary Care Provider [phone] Unknown, Unknown Primary Care Provider Jayshree Caldera MD Primary Care Provider [phone] Gonzalo Gomez MD, PhD Unavailable [phone] Encounter Details Date Type Department Care Team (Late Contact Info) Description 09/07/2018 Procedure Pass [facility] PERIOPERATIVE DEPT [address] [place] [address] Social History Tobacco Use Types [...] Description 03/21/2025 4:30 PM EST Office Visit [facility] Neuromuscular Service [address] [facility], 8th [place] [address] Alok Smyth MD [address] [facility] [address] [place] [address] [email or web address] documented as of this encounter Visit Diagnoses Not on filedocumented in this encounter Additional Health Concerns Infection Onset Date Last Indicated Resolved Time Clearance-CoV Comment:Auto-resolved with negative COVID-19 PCR 08/31/2019 08/31/2019 08/31/2019 2:27 PM E DT CoV-Risk Comment:See [facility] note 09/1509/14/2019 09/14/2019 020 9:22 AM EDT documented as of this encounter Care Teams Vamp Marker Relationship Specialty Start Date End Date Jayshree Mishra MD [address] [place] [address] PCP - General Internal Medicine 07/18/18 04/19/19 Unknown, Francis, [address] [place] [address] PCP - General 04/20/19 06/26/19 Jayshree Mishra MD [address] [place] [address] PCP - General Internal Medicine 06/27/19 Gonzalo Gomez MD, PhD [address] [place] [address] [email or web address] Neurology 01/20/23 documented as of this encounter Additional Source Comments The information contained in this document represents components of the legal health record. It is not the complete legal health record.[facility]
--- OUTSIDE RECORDS SUMMARY | 2025-03-05 12:21 | XMS_ITS | Encounter Summary ---
Author Organization [facility] Address [address] [facility] [address] [place] [address] Encounters * CPT with Anderson Momin at [employer] on 2024-11-18 Shortness of breath and pain with inspiration?? { reasonForRequest : Patient woke up short of breath, on oxygen, and Has pain and chest tightness when she inhales. , patientReports : Shortness of breath with exertion; Pain with inspiration , denies :[ Increased work of breathing/labored with or without fever , Unable to speak in full sentences without distress , Dis coloration of skin -cyanosis , Needs to sleep sitting up, can t catch breath ,"Shortness of breath in setting of confusion , Cough, fever greater than 2 days ,"History of asthma, increased use of inhaler , COPD ], chiefComplaints :"Breathing Problems , pmh : Other , allergies : Predniso ne , otherAllergies :null, painAssessment : , visitOutcome& quot;: , additionalComments : 34 y.o female complains of Breathing Problem s\n\nPt called with shortness of breath. \nShe wears o2 overnight, 2LNC and increased to 3LNC, she was sating in the night 84-88%, now 91% but normally 96%. \nShe still has the o2 in place. \nShe hasa trach in place. \nShe does not have any congestion, she has pain with inspiration. She did suction last night after her meds, but did not have any mucus. \nShe is allergic to prednisone \[facility] cmt charcot-dougie- tooth 2 \nI provided information on the mobile health provider response time and advised the patient and/or caregiver to monitor reported signs and symptoms. I discussed the warning signs of when to seek emergency care. } Arrived to find female sitting in her residence. Patient family on scene. Patient aox4. GCS 15. Skin pink warm and dry. 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 Non vent dependent wears O2 at night only. Stated last night she had pain with inspiration and hypoxia in the 80s. Patient on 2 LPm when I arrived. Wincing with inspiration. Able to talk in complete sentences. Lung sounds clear. Trach suctioning yielded no results. Patient did an albuterol HAND CROWN POUNCER with no change. Patient VS as noted. History of infection with trachea. Trachea site looks unremarkable. [facility] advised to go to hospital. Patient agreeable. 911 called. Care transferred to [facility] transporting to [facility]. ORAL_MEDICATION, POC_FLU_STREP, COVID_TEST Written by Anderson Momin on 2024-11-18
--- OUTSIDE RECORDS SUMMARY | 2025-03-05 12:21 | XMS_ITS | Encounter Summary ---
Author Organization [facility] Address [address] [facility] [address] [place] [address] Phone Care Team Providers Care Pharmaceutical Officer Name Role Phone Jayshree Mishra MD Primary Care Provider [phone] Gonzalo Gomez MD, PhD Unavailable [phone] Reason for Visit * Reason Comments Medication Refill Encounter Details Date Type Department Care Team (Late st Contact Info) Description 09/20/2019 Refill [facility] Maternal Medicine Obstetrics [address] [facility], 4th Floor, [address] [place] [address] Hamida Pimentel MD 55 [facility] [address] [place] [address] [email or web address] Medication Refill Social History Tobacco Use Types [...] high school, GED, job training, learning the Czech language, technical skills, or developing parenting skills)? [...] Description 03/21/2025 4:30 PM EST Office Visit [facility] Neuromuscular Service [address] [facility], 8th [place] [address] Alok Smyth MD [address] [place] [address] [address] [place] [address] [email or web address] documented as of this encounter Visit Diagnoses Diagnosis High-risk in third trimester Herpes genitalis Unspecified genital herpes documented in this encounter Care Teams Pharmaceutical Officer Relationship Specialty Start Date End Date Jayshree Mishra MD [address] [place] [address] PCP - General Internal Medicine 06/27/19 Gonzalo Gomez MD, PhD [address] [place] [address] [email or web address] Neurology 01/20/23 documented as of this encounter Additional Source Comments The information contained in this document represents components of the legal health record. It is not the complete legal health record.[facility]
--- OUTSIDE RECORDS SUMMARY | 2025-03-05 12:21 | XMS_ITS | Data Portability ---
Author Organization [employer] [facility], [facility] Address [address] [place] [phone] Care Team Providers Care Billing Adjudicator Name Role Phone HIM CCA OTHER Assessment Encounter Date Assessment Date Assessment LastModified by Organization Details LastModified Time 11/18/2024 11/18/2024 I provided real -time medical direction via phone for this encounter, and was available for additional phone based assistance as needed. I have reviewed and agree with the Assessment and Plan as documented by the Production Tester. We discussed the diagnostic uncertainty of home visits and the risk associated with this. In this case the patient and I felt given significant pain with inspiration, hx of Tracheitis and new hypoxia when on RA she should be seen in ED. Patient reports Director Title plans to do a bronch in near future. Report called to [facility] where patient receives most of her care, staff is familiar with patient and expecting arrival. Patient verbalized understanding of plan and is in agreement. [email or web address] Not available 11/18/2024 12:38:10 Plan of Treatment Reminders Order Date Submit Date Provider Last Modified By Organization Details Last Modified Time Details Appointments None record ed. Lab None record ed. Referral None record ed. Procedures None record ed. Surgeries None record ed. Imaging None record ed. Medication Orders None record ed. Patient TargetsNo targets recorded. Patient InstructionsNo instructions recorded. Reason for Referral None Reported. Medical Equipment None Reported. Allergies Allergen ID Allergen Name Allergen Category Reaction Reaction Severity Criticality Documentation Date Start Date Code Code System Note Provider Name and Address Organization Details Recorded Time 90286 prednison e medicatio n Not available Not available Not available 11/18/2024 8640 RxNorm Not Available [facility] - production 08:08:12 Medications Name Sig Start Date Stop Date Status Note LastModified by Organization Details LastModified Time celecoxib 200 mg capsule TAKE 1 CAPSULE ORALLY 2 TIMES A DAY FOR 30 DAYS active Not Available Not Available No t Available fluconazole 100 mg tablet TAKE 1 TABLET BY MOUTH DAILY FOR 7 DAYS active Not Available Not Available No t Available doxycycline hyclate 100 mg capsule TAKE 1 CAPSULE ORALLY 2 TIMES A DAY FOR 10 DAYS 11/18 completed Not Available Not Available Not Available valacyclovi r 1 gram tablet TAKE 1 TABLET BY MOUTH EVERY DAY active Not Available Not Available No t Available sodium chloride 3 % for nebulizatio n INHALE 4 ML VIA NEBULIZER 2 TIMES A DAY FOR 30 DAYS active Not Available Not Available No t Available phentermine 15 mg capsule TAKE 1 CAPSULE BY MOUTH DAILY active Not Available Not Available No t Available sulfamethox azole 800 mg-trimetho prim 160 mg tablet TAKE 1 TABLET BY MOUTH TWICE A DAY FOR 21 DAYS 11/18 completed Not Available Not Available Not Available phentermine 30 mg capsule TAKE 1 CAPSULE BY MOUTH DAILY active Not Available Not Available No t Available meloxicam 7.5 mg tablet TAKE 1 TABLET BY MOUTH EVERY DAY FOR 14 DAYS active Not Available Not Available No t Available dexamethaso ne 4 mg tablet PLEASE SEE ATTACHED FOR DETAILED DIRECTION S active Not Available Not Available No t Available mupirocin 2 % topical ointment APPLY 1 APPL TOPICALLY 3 TIMES A DAY FOR 7 DAYS 11/18 completed Not Available Not Available Not Available levalbutero l 1.25 mg/3 mL solution for nebulizatio n USE 1.25 MG (3 ML) INHALED VIA NEBULIZER 2 TIMES A DAY FOR 30 DAYS active Not Available Not Available No t Available levofloxaci n 500 mg tablet TAKE 1 TABLET BY MOUTH EVERY DAY FOR 14 DAYS 11/18 completed Not Available Not Available Not Available ketoconazol e 2 % topical cream APPLY TO AFFECTED AREA EVERY DAY FOR 7 DAYS active Not Available Not Available No t Available amoxicillin 875 mg-potassiu m clavulanate 125 mg tablet TAKE 1 TABLET BY MOUTH TWICE A DAY FOR 10 DAYS 11/18 completed Not Available Not Available Not Available cyclobenzap rine 5 mg tablet TAKE 1 TABLET BY MOUTH 3 TIMES A DAY FOR 14 DAYS active Not Available Not Available No t Available Vitals Date Recorded Body temperature Respiratory rate Oxygen saturation Oxygen saturation in Arterial blood by Pulse oximetry Inhaled oxygen flow rate Heart rate Systolic And Diastolic Provider Name and Address Organization Details Last Updated DateTime 5 98.2 [degF] 18 /min 96 % 96 % 3 L/min 110 /min 135/85 mm[Hg] Not Available [facility] - production 5 09:30:39 Social History None recorded. Functional Status None recorded. Mental Status None recorded. Family History Nothing Reported. Medical History No medical history recorded. Gynecological HistoryNo gynecological history recorded. Obstetrics History GPAL:G 0 P 0 0 0 0 Past Encounters Encounter ID Performer Location Encounter Start Date Encounter Closed Date Diagnosis/Indication Diagnosis SNOMED-CT Code Diagnosis ICD10 Code Diagnosis IMO Codes Diagnosis Note [id number] WALE HUBBARD NP, S [facility] [address] [place] [address] 11/18/2024 09:30:37 11/18/2024 17:14:29 Hypoxia 862136154 R09.02 14281 Health Concerns Section Related Observation LastModified by Organization Detai ls LastModified Time None Recorded Concern Status LastModified by Organization Details LastModified Time None Recorded Advance Directives Directive None Recorded Payers Insurance Date Sequence Insurance Name Policy Number Policy Lynn Covered Member ID Lynn Member ID Guarantor Name 12/05/2024 1 [facility] - DOS ON OR AFTER 2022 - DUAL ELIGIBLE - GROUP HOME OPTIONS AND ONE CARE (MEDICARE REPLACEMENT/ADV ANTAGE - HMO) Jessica Salvador [id number] Jessica Salvador Notes Date Note Type Note Provider Name and Address Organization Details Recorded Time 11/18/2024 text/html ROS as noted in the HPI HPI: Shortness of breath and pain with inspiration .................. .................. .................. .................. .................. .................. .................. ............... [facility] Nurse Triage Notes (Darlene Haley): Reason For Request: Patient woke up short of breath, on oxygen, and Has pain and chest tightness when she inhales. Patient Reports: Shortness of breath with exertion; Pain with inspiration Denies: Increased work of breathing/labored with or without fever Unable to speak in full sentences without distress Discoloration of skin -cyanosis Needs to sleep sitting up, can t catch breath Shortness of breath in setting of confusion Cough, fever greater than 2 days History of asthma, increased use of inhaler COPD Chief Complaints: Breathing Problems PMH: Other PMH Reviewed at 11/18/2024:08 Allergies Reviewed at 11/18/2024:08 Comments: 34 y.o female complains of Breathing Problems Pt called with shortness of breath. She wears o2 overnight, 2LNC and increased to 3LNC, she was sating in the night 84-88%, now 91% but normally 96%. She still has the o2 in place. She has a trach in place. She does not have any congestion, she has pain with inspiration. She did suction last night after her meds, but did not have any mucus. She is allergic to prednisone [facility] 2 I provided information on the mobile health provider response time and advised the patient and/or caregiver to monitor reported signs and symptoms. I discussed the warning signs of when to seek emergency care. .................. .................. .................. .................. .................. .................. .................. ............... Production Tester Note From Higinio Jeronimo: Arrived to find female sitting in her [...] yielded no results. Patient did an albuterol BEREAVEMENT COUNSELOR with no change. Patient VS as noted. History of infection with trachea. Trachea site looks unremarkable. [facility] [place] called advised to go to hospital. Patient agreeable. 911 called. Care transferred to [facility] transporting to [facility]. .................. .................. .................. .................. .................. .................. .................. ............... [facility] [place] Consulted: Wale Hubbard .................. .................. .................. .................. .................. .................. .................. ............... Disposition: Fulfilled WALE HUBBARD NP, S [address] [place] [address],[address], [place], [address], [employer] 11/18/2024 12:38:17 OBGyn Episode No OBEpisode recorded.
--- OUTSIDE RECORDS SUMMARY | 2025-03-05 12:21 | XMS_ITS | Encounter Summary ---
Author Organization [facility] Address [address] [place] [address] Phone Care Team Providers Care Truck Trailer Final Inspector Name Role Phone Shayy James MD Primary Care Provider [phone] Shayy James MD Primary Care Provider [phone] Jayshree Mishra MD Primary Care Provider Unknown, Unknown Primary Care Provider Jayshree Caldera MD Primary Care Provider Gonzalo Gomez MD, PhD Unavailable [phone] Encounter Details Date Type Department Care Team (Late Contact Info) Description 07/15/2016 Procedure Pass [facility] PERIOP DEPT [address] [place] [phone] Social History Tobacco Use Types Packs/Day Years [...] [facility] [address] [facility], 8th [place] [address] Alok Smyth MD [address] [place] [address] [address] [place] [address] [email or web address] documented as of this encounter Visit Diagnoses Not on filedocumented in this encounter Additional Health Concerns Infection Onset Date Last Indicated Resolved Time Clearance-CoV Comment:Auto-resolved with negative COVID-19 PCR 08/31/2019 08/31/2019 08/31/2019 2:27 PM E DT CoV-Risk Comment:See [facility] note 09/1509/14/2019 09/14/2019 020 9:22 AM EDT documented as of this encounter Care Teams Truck Trailer Final Inspector Relationship Specialty Start Date End Date Shayy James MD [email or web address] PCP - General Internal Medicine 12/11/15 02/25/17 Shayy James MD [email or web address] PCP - General Internal Medicine 02/26/17 07/17/18 Jayshree Mishra MD [address] [place] [address] PCP - General Internal Medicine 07/18/18 04/19/19 Francis, Francis, [address] [place] [address] PCP - General 04/20/19 06/26/19 Jayshree Mishra MD [address] [place] [address] PCP - General Internal Medicine 06/27/19 Gonzalo Gomez MD, PhD [address] [place] [address] [place] [address] [email or web address] Neurology 01/20/23 documented as of this encounter Additional Source Comments The information contained in this document represents components of the legal health record. It is not the complete legal health record.[facility]
--- OUTSIDE RECORDS SUMMARY | 2025-03-05 12:21 | XMS_ITS | Encounter Summary ---
Author Organization [facility] Address [address] [place] [address] [place] [address] Phone Care Team Providers Care Food Beverage Server Name Role Phone Unknown, Unknown Primary Care Provider Jayshree Caldera MD Primary Care Provider [phone] Gonzalo Gomez MD, PhD Unavailable Encounter Details Date Type Department Care Team (Late Contact Info) Description 05/19/[address] [facility] Rick IGNACIO [address] [facility], 4th Floor, [address] [place] [address] Hamida Pimentel MD [address] [facility] FND 4 [place] [phone] [email or web address] Abnormal ultrasound Social History Tobacco Use Types [...] 03/21/2025 4:30 PM EST Office Visit [facility] Neuromuscular Service [address] [facility], 8th [place] [address] Alok Smyth MD [address] [place], [place] [address] [address] [place] [address] [email or web address] documented as of this encounter Results * [...] microarray. The blood type is Rh positive. Stratford protocol was followed. Procedure Note Baldemar Sanchez [...] direct microarray. The blood type is Rh positive.Stratford protocol was followed. IMPRESSION: As stated above. [...] be considered. AP us Hamida Pimentel MD [facility] OBSTETRIC Final Resu lt documented in this encounter Visit Diagnoses Diagnosis Abnormal ultrasound Abnormal ultrasound documented in this encounter Additional Health Concerns Infection Onset Date Last Indicated Resolved Time Clearance-CoV Comment:Auto-resolved with negative COVID-19 PCR 08/31/2019 08/31/2019 08/31/2019 2:27 PM E DT CoV-Risk Comment:See [facility] note 09/1509/14/2019 09/14/2019 020 9:22 AM EDT documented as of this encounter Care Teams Food Beverage Server Relationship Specialty Start Date End Date Unknown, Unknown, MD PCP - General 04/20/19 06/26/19 Jayshree Mishra MD [address] [place] [address] PCP - General Internal Medicine 06/27/19 Gonzalo Gomez MD, PhD [address] [place] [id number] [email or web address] Neurology 01/20/23 documented as of this encounter Additional Source Comments The information contained in this document represents components of the legal health record. It is not the complete legal health record.[facility]
--- OUTSIDE RECORDS SUMMARY | 2025-03-05 12:21 | XMS_ITS | Encounter Summary ---
Author Organization [facility] Address [address] [place] [address] Phone Care Team Providers Care Cost Control Analyst Name Role Phone Jayshree Mishra MD Primary Care Provider [phone] Gonzalo Gomez MD, PhD Unavailable [phone] Encounter Details Date Type Department Care Team (Late st Contact Info) Description 09/15/2019 Procedure Pass [facility] Tao [address] [place] [address] Social History Tobacco Use Types Packs/Day Years [...] high school, GED, job training, learning the Cym[place] language, technical skills, or developing parenting skills)? [...] Description 03/21/2025 4:30 PM EST Office Visit [facility] Neuromuscular Service [address] [facility], 8th [place] [address] Alok Smyth MD [address] [facility] [address] [place] [address] [email or web address] documented as of this encounter Visit Diagnoses Not on filedocumented in this encounter Additional Health Concerns Infection Onset Date Last Indicated Resolved Time CoV-Risk Comment:See [facility] note 09/1509/14/2019 09/14/2019 020 9:22 AM EDT documented as of this encounter Care Teams Cost Control Analyst Relationship Specialty Start Date End Date Jayshree Mishra MD [address] [place] [address] PCP - General Internal Medicine 06/27/19 Gonzalo Gomez MD, PhD [address] [facility] [place] [address] [email or web address] Neurology 01/20/23 documented as of this encounter Additional Source Comments The information contained in this document represents components of the legal health record. It is not the complete legal health record.[facility]
--- OUTSIDE RECORDS SUMMARY | 2025-03-05 12:21 | XMS_ITS | Encounter Summary ---
Author Organization [facility] Address [address] [place] [address] [place] [address] Phone Care Team Providers Care Head Of Quality Name Role Phone Kae Mishra MD Primary Care Provider [phone] Gonzalo Gomez MD, PhD Unavailable [phone] Encounter Details Date Type Department Care Team (Late st Contact Info) Description 08/31/2019 Ancillary Orders [facility] Obstetrics [address] [place] [address], 4th Floor, [address] [place] [address] Hamida Pimentel MD [address] [place] [address] FN [address] [place] [address] [email or web address] High-risk in third trimester; Herpes genitalis; Intrauterine growth restriction (IUGR) affecting care of mother, third trimester, single or unspecified fetus; Scszdxo-Xpklj-Rtlca disease; Malpresentation before onset of labor, single [...] high school, GED, job training, learning the Micronesian language, technical skills, or developing parenting skills)? [...] Description 03/21/2025 4:30 PM EST Office Visit [facility] [address] [facility], 8th [place] [address] Alok Smyth MD [address] [place] [address] [email or web address] documented as of this encounter Results * [...] teamwas notified. AP us Hamida Pimentel MD [facility] OBST[facility] Final Resu lt documented in this encounter Visit Diagnoses Diagnosis High-risk in third trimester Herpes genitalis Unspecified genital herpes Intrauterine growth restriction (IUGR) affecting care of mother, third trimester, single or unspecified fetus Jxgsppq-Cnrba-Utgcu disease Peroneal muscular atrophy Malpresentation before onset of labor, single or unspecified fetus High-risk in third trimester Herpes genitalis Unspecified genital herpes Intrauterine growth restriction (IUGR) affecting care of mother, third trimester, single or unspecified fetus Govtzsy-Nyyjp-Lnhdh disease Peroneal muscular atrophy Malpresentation before onset of labor, single or unspecified fetus documented in this encounter Additional Health Concerns Infection Onset Date Last Indicated Resolved Time Clearance-CoV Comment:Auto-resolved with negative COVID-19 PCR 08/31/2019 08/31/2019 08/31/2019 2:27 PM E DT CoV-Risk Comment:See [facility] note 09/1509/14/2019 09/14/2019 020 9:22 AM EDT documented as of this encounter Care Teams Head Of Quality Relationship Specialty Start Date End Date Kae Mishra MD [address] [place] [address] PCP - General Internal Medicine 06/27/19 Gonzalo Gomez MD, PhD [address] [place] [address] [email or web address] Neurology 01/20/23 documented as of this encounter Additional Source Comments The information contained in this document represents components of the legal health record. It is not the complete legal health record.[facility]
--- OUTSIDE RECORDS SUMMARY | 2025-03-05 12:21 | XMS_ITS | Patient Health Record ---
Author Organization [facility] Address [address] [place] [address] Care Team Providers Care Over Hauler Helper Name Role Phone MICHELINE HARRINGTON Unavailable [phone] Allergies Allergen (clinical drug ingredient) Drug/Non Drug Allergy documented on EMR Reaction Allergy Type Onset Date Status prednisone Prednisone Unknown Drug Allergy Activ e Reason For Referral No Information Medications Medication SIG (Take, Route, Fr equency, Duration) Notes Start Date End Date Status Zepbound 5 MG/0.5ML 5 mg Subcutaneous we ekly; Duration: 30 days Active Social History Tobacco Use: Social History Observation Description Date Details (start date - stop date) Never Smoker NA - NA Tobacco Use/Smoking Question Answer Notes Are you [...] 2x/week tob: declines marijuana: declines drug: declines Problems Problem Type SNOMED Code ICD Code Onset Dates Problem Status W/U Status Risk Notes Problem Morbid obesity (disorder) (890199156) Morbid (severe) obesity due to excess calories (E66.01) Active confirmed Problem Obesity (739928099) Other obesity (E66.8) Active confirmed Problem Obesity (952384878) Obesity (BMI 30-39.9) (E66.9) Active confirmed Problem Polycystic ovary syndrome (disorder) (069438975) PCOS (polycystic ovarian syndrome) (E28.2) Active confirmed Problem Obese class II (268229842325301 ) BMI 39.0-39.9,adult (Z68.39) Active confirmed Problem Obese class II (504202011780131 ) BMI 38.0-38.9,adult (Z68.38) Active confirmed Problem Body mass index 40+ - severely obese (036312793) Body mass index [BMI] 40.0-44.9, adult (Z68.41) Active confirmed 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) Active confirmed Problem History of tracheostomy (440929986) 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 Vital Signs Heart Rate 90 /min 02/01/2025 Oximetry 94 % 02/01/2025 Blood pressure diastolic 76 mm Hg 02/01/2025 Height 64 in 02/01/2025 Blood pressure systolic 122 mm Hg 02/01/2025 Weight 228.6 lbs 02/01/2025 BMI 39.23 kg/m2 02/01/2025 Encounters Encounter Location Date Provider Diagnosis [facility] [address] [place] [address] 04/05/2024 MICHELINE HARRINGTON Obesity (BMI 30-39.9 ) E66.9 ; BMI 39.0-39.9,adult Z68.39 ; Kujgcwh-Mcgnx-Xvpjw disease G60.0 and Tracheostomy dependent Z93.[address] [facility] [address] [place] [address] 05/16/2024 MICHELINE MORANER Obesity (BMI 30-39.9 ) E66.9 ; BMI 38.0-38.9,adult Z68.38 ; Kpltvpj-Bcibm-Dsbkg disease G60.0 and Tracheostomy dependent Z93.[address] [facility] [address] [place], [place] 12/11/2024 MICHELINE HARRINGTON Morbid (severe) obes ity due to excess calories E66.01 ; Body mass index [BMI] 40.0-44.9, adult Z68.41 ; Mdxyilf-Hyrgn-Zvtpb disease G60.0 ; Tracheostomy dependent Z93.0 and Encounter for examination of blood pressure without abnormal findings Z01.[address] [facility] [address] [place], [place] 01/08/2025 MICHELINE HARRINGTON Morbid (severe) obes ity due to excess calories E66.01 ; BMI 39.0-39.9,adult Z68.39 ; Egypixq-Euoqd-Diuth disease G60.0 ; Tracheostomy dependent Z93.0 ; Encounter for examination of blood pressure without abnormal findings Z01.30 and Nutritional counseling Z71.[address] [facility] [address] [place], [place] 02/01/2025 MICHELINE HARRINGTON BMI 39.0-39.9,adult Z68.39 ; Morbid (severe) obesity due to excess calories E66.01 ; Bldijod-Yjtaj-Nvuhj disease G60.0 ; Tracheostomy dependent Z93.0 ; Encounter for examination of blood pressure without abnormal findings Z01.30 and Nutritional counseling Z71.[address] [facility] [address] [place], [place] 12/11/2024 MICHELINE HARRINGTON [facility] [phone] [address] 03/06/2024 MICHELINE HARRINGTON Other obesity E66.[address] [facility] [address] [place], [place] 06/27/2024 MICHELINE HARRINGTON [facility] [address] [place], [place] 06/27/2024 MICHELINE HARRINGTON [facility] [address] [place], [place] 11/30/2024 MICHELINE HARRINGTON [facility] [address] [place], [place] 11/30/2024 MICHELINE HARRINGTON [facility] [phone] [address] 12/11/2024 MICHELINE HARRINGTON Assessments Encounter Date Diagnosis (ICD Code) Assessment Notes Treatment Notes Treatment Clinical Notes Section Notes 03/06/2024 Other obesity (ICD-10 - E66.8) 04/05/2024 [...] this. 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 #Chcyemc-Danbh-Npqom disease: Follows with neurologist Dr. Bland. Occasions [...] Dictation was accomplished with the use of Audio[employer] voice recognition software, prone to medical misidentifications [...] this. 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 #Tixvrxp-Dmiil-Sgkqg disease: Follows with neurologist Dr. Bland. Occasions [...] Dictation was accomplished with the use of Audio[employer] voice recognition software, prone to medical misidentifications [...] this. 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 #Xctkvjy-Lcwgf-Lmbur disease: Follows with neurologist Dr. Bland. Occasions [...] Dictation was accomplished with the use of Audio[employer] voice recognition software, prone to medical misidentifications [...] this. 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 #Vkfogfz-Bsoxr-Swbez disease: Follows with neurologist Dr. Bland. Occasions [...] Dictation was accomplished with the use of [employer] voice recognition software, prone to medical misidentifications and grammatical errors. This is unintentional and the practitioner does try to identify and correct these, but some could still be present. Please do not hesitate to contact practitioner for clarification. 12/11/2024 Morbid (severe) obesity due to excess calories (ICD-10 - E66.01) Jessica Is a 34 year-old female who presents the office for weight management follow-up. 01/14/2023:Weight 252.7 pounds, BMI 43.37. Patient welcomed to the practice. Extensively educated on lifestyle modifications including high-protein foods, low carbohydrate snacks, healthy fats, sleep hygiene, stress reduction. Patient provided with educational documentation regarding all of this. 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 12/11/2024: Weight 239, BMI 41. Patient has increased weight since last visit. Has not been seen since May 2024. Patient motivated to get back on track. Will follow-up in 4 weeks. In the meantime is requesting Zepbound to be sent to the pharmacy. Will submit Zepbound 2.5 mg. Discussed proper use and side effects. #Rqqwblt-Whqeu-Qtdme disease: Follows with neurologist Dr. Bland. Occasions [...] Dictation was accomplished with the use of Audio[employer] voice recognition software, prone to medical misidentifications and grammatical errors. This is unintentional and the practitioner does try to identify and correct these, but some could still be present. Please do not hesitate to contact practitioner for clarification. 12/11/2024 Body mass index [BMI] 40.0-44.9, adult (ICD-10 - Z68.41) Jessica Is a 34 year-old female who presents the office for weight management follow-up. 01/14/2023:Weight 252.7 pounds, BMI 43.37. Patient welcomed to the practice. Extensively educated on lifestyle modifications including high-protein foods, low carbohydrate snacks, healthy fats, sleep hygiene, stress reduction. Patient provided with educational documentation regarding all of this. 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 12/11/2024: Weight 239, BMI 41. Patient has increased weight since last visit. Has not been seen since May 2024. Patient motivated to get back on track. Will follow-up in 4 weeks. In the meantime is requesting Zepbound to be sent to the pharmacy. Will submit Zepbound 2.5 mg. Discussed proper use and side effects. #Pcmkveo-Zbypo-Fivig disease: Follows with neurologist Dr. Bland. Occasions [...] Dictation was accomplished with the use of Audio[employer] voice recognition software, prone to medical misidentifications and grammatical errors. This is unintentional and the practitioner does try to identify and correct these, but some could still be present. Please do not hesitate to contact practitioner for clarification. 01/08/2025 BMI 39.0-39.9,adult (ICD-10 - Z68.39) Jessica Is a 34 year-old female who presents the office for weight management follow-up. 01/14/2023:Weight 252.7 pounds, BMI 43.37. Patient welcomed to the practice. Extensively educated on lifestyle modifications including high-protein foods, low carbohydrate snacks, healthy fats, sleep hygiene, stress reduction. Patient provided with educational documentation regarding all of this. 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 12/11/2024: Weight 239, BMI 41. Patient has increased weight since last visit. Has not been seen since May 2024. Patient motivated to get back on track. Will follow-up in 4 weeks. In the meantime is requesting Zepbound to be sent to the pharmacy. Will submit Zepbound 2.5 mg. Discussed proper use and side effects. 01/08/2025: Weight 232, BMI 39 stay on Zepbound 2.5 mg. Focus on increasing resistance training, and continuing with 120 g of protein. #Cnkezdo-Gplma-Hsxsh disease: Follows with neurologist Dr. Bland. Occasions [...] Dictation was accomplished with the use of Audio[employer] voice recognition software, prone to medical misidentifications and grammatical errors. This is unintentional and the practitioner does try to identify and correct these, but some could still be present. Please do not hesitate to contact practitioner for clarification. 01/08/2025 Morbid (severe) obesity due to excess calories (ICD-10 - E66.01) Jessica Is a 34 year-old female who presents the office for weight management follow-up. 01/14/2023:Weight 252.7 pounds, BMI 43.37. Patient welcomed to the practice. Extensively educated on lifestyle modifications including high-protein foods, low carbohydrate snacks, healthy fats, sleep hygiene, stress reduction. Patient provided with educational documentation regarding all of this. 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 12/11/2024: Weight 239, BMI 41. Patient has increased weight since last visit. Has not been seen since May 2024. Patient motivated to get back on track. Will follow-up in 4 weeks. In the meantime is requesting Zepbound to be sent to the pharmacy. Will submit Zepbound 2.5 mg. Discussed proper use and side effects. 01/08/2025: Weight 232, BMI 39 stay on Zepbound 2.5 mg. Focus on increasing resistance training, and continuing with 120 g of protein. #Frvvrvs-Vgmkc-Hrbbq disease: Follows with neurologist Dr. Bland. Occasions [...] Dictation was accomplished with the use of Audio[employer] voice recognition software, prone to medical misidentifications and grammatical errors. This is unintentional and the practitioner does try to identify and correct these, but some could still be present. Please do not hesitate to contact practitioner for clarification. 02/01/2025 BMI 39.0-39.9,adult (ICD-10 - Z68.39) Jessica Is a 34 year-old female who presents the office for weight management follow-up. 01/14/2023:Weight 252.7 pounds, BMI 43.37. Patient welcomed to the practice. Extensively educated on lifestyle modifications including high-protein foods, low carbohydrate snacks, healthy fats, sleep hygiene, stress reduction. Patient provided with educational documentation regarding all of this. 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 Continue diet and exercise habits. 9/5/24: Weight 239.1 BMI 41.04. Has not been [...] exercising regularly, and portions have improved significantly. 12/11/2024: Weight 239, BMI 41. Patient has increased weight since last visit. Has not been seen since May 2024. Patient motivated to get back on track. Will follow-up in 4 weeks. In the meantime is requesting Zepbound to be sent to the pharmacy. Will submit Zepbound 2.5 mg. Discussed proper use and side effects. 01/08/2025: Weight 232, BMI 39 stay on Zepbound 2.5 mg. Focus on increasing resistance training, and continuing with 120 g of protein. 02/01/2025: Weight 228, BMI 39 increase Zepbound to 5 mg. Follow-up in 4 weeks. Discussed implementing more resistance training to avoid muscle loss. #Mhkgfwq-Cwbdb-Yljfi disease: Follows with neurologist Dr. Bland. Occasions [...] Dictation was accomplished with the use of Audio[employer] voice recognition software, prone to medical misidentifications and grammatical errors. This is unintentional and the practitioner does try to identify and correct these, but some could still be present. Please do not hesitate to contact practitioner for clarification. 02/01/2025 Morbid (severe) obesity due to excess calories (ICD-10 - E66.01) Jessica Is a 34 year-old female who presents the office for weight management follow-up. 01/14/2023:Weight 252.7 pounds, BMI 43.37. Patient welcomed to the practice. Extensively educated on lifestyle modifications including high-protein foods, low carbohydrate snacks, healthy fats, sleep hygiene, stress reduction. Patient provided with educational documentation regarding all of this. 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 12/11/2024: Weight 239, BMI 41. Patient has increased weight since last visit. Has not been seen since May 2024. Patient motivated to get back on track. Will follow-up in 4 weeks. In the meantime is requesting Zepbound to be sent to the pharmacy. Will submit Zepbound 2.5 mg. Discussed proper use and side effects. 01/08/2025: Weight 232, BMI 39 stay on Zepbound 2.5 mg. Focus on increasing resistance training, and continuing with 120 g of protein. 02/01/2025: Weight 228, BMI 39 increase Zepbound to 5 mg. Follow-up in 4 weeks. Discussed implementing more resistance training to avoid muscle loss. #Fmuzscl-Nymwq-Ixcnc disease: Follows with neurologist Dr. Bland. Occasions [...] Dictation was accomplished with the use of [employer] voice recognition software, prone to medical misidentifications and grammatical errors. This is unintentional and the practitioner does try to identify and correct these, but some could still be present. Please do not hesitate to contact practitioner for clarification. 01/08/2025 Xxooals-Odwzw-E ooth disease (ICD-10 - G60.0) Jessica Is a 34 year-old female who presents the office for weight management follow-up. 01/14/2023:Weight 252.7 pounds, BMI 43.37. Patient welcomed to the practice. Extensively educated on lifestyle modifications including high-protein foods, low carbohydrate snacks, healthy fats, sleep hygiene, stress reduction. Patient provided with educational documentation regarding all of this. 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 12/11/2024: Weight 239, BMI 41. Patient has increased weight since last visit. Has not been seen since May 2024. Patient motivated to get back on track. Will follow-up in 4 weeks. In the meantime is requesting Zepbound to be sent to the pharmacy. Will submit Zepbound 2.5 mg. Discussed proper use and side effects. 01/08/2025: Weight 232, BMI 39 stay on Zepbound 2.5 mg. Focus on increasing resistance training, and continuing with 120 g of protein. #Onfsumc-Nsvsc-Prpyk disease: Follows with neurologist Dr. Bland. Occasions [...] Dictation was accomplished with the use of Audio[employer] voice recognition software, prone to medical misidentifications and grammatical errors. This is unintentional and the practitioner does try to identify and correct these, but some could still be present. Please do not hesitate to contact practitioner for clarification. 12/11/2024 Cxnvzpm-Yppio-W ooth disease (ICD-10 - G60.0) Jessica Is a 34 year-old female who presents the office for weight management follow-up. 01/14/2023:Weight 252.7 pounds, BMI 43.37. Patient welcomed to the practice. Extensively educated on lifestyle modifications including high-protein foods, low carbohydrate snacks, healthy fats, sleep hygiene, stress reduction. Patient provided with educational documentation regarding all of this. 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 12/11/2024: Weight 239, BMI 41. Patient has increased weight since last visit. Has not been seen since May 2024. Patient motivated to get back on track. Will follow-up in 4 weeks. In the meantime is requesting Zepbound to be sent to the pharmacy. Will submit Zepbound 2.5 mg. Discussed proper use and side effects. #Azbcthd-Ftcnd-Lqlba disease: Follows with neurologist Dr. Bland. Occasions [...] Dictation was accomplished with the use of [employer] voice recognition software, prone to medical misidentifications and grammatical errors. This is unintentional and the practitioner does try to identify and correct these, but some could still be present. Please do not hesitate to contact practitioner for clarification. 05/16/2024 Eqieshe-Vzkoo-N ooth disease (ICD-10 - G60.0) Jessica Is a 33 year-old female who presents the office for weight management follow-up. 01/14/2023:Weight 252.7 pounds, BMI 43.37. Patient welcomed to the practice. Extensively educated on lifestyle modifications including high-protein foods, low carbohydrate snacks, healthy fats, sleep hygiene, stress reduction. Patient provided with educational documentation regarding all of this. 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 #Osjrowv-Sofgv-Bcwep disease: Follows with neurologist Dr. Bland. Occasions [...] Dictation was accomplished with the use of Audio[employer]ass voice recognition software, prone to medical misidentifications and grammatical errors. This is unintentional and the practitioner does try to identify and correct these, but some could still be present. Please do not hesitate to contact practitioner for clarification. 04/05/2024 Ohusqjp-Kvapp-J ooth disease (ICD-10 - G60.0) Jessica Is a 33 year-old female who presents the office for weight management follow-up. 01/14/2023:Weight 252.7 pounds, BMI 43.37. Patient welcomed to the practice. Extensively educated on lifestyle modifications including high-protein foods, low carbohydrate snacks, healthy fats, sleep hygiene, stress reduction. Patient provided with educational documentation regarding all of this. 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 #Suvgixj-Nmeex-Bdvyz disease: Follows with neurologist Dr. Bland. Occasions [...] Dictation was accomplished with the use of Audio[employer] voice recognition software, prone to medical misidentifications [...] this. 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 #Wxkyrzq-Axeys-Qkeav disease: Follows with neurologist Dr. Bland. Occasions [...] Dictation was accomplished with the use of Audio[employer]ass voice recognition software, prone to medical misidentifications [...] this. 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 #Boetxpa-Dekwu-Lzokt disease: Follows with neurologist Dr. Bland. Occasions [...] Dictation was accomplished with the use of Audio[employer] voice recognition software, prone to medical misidentifications and grammatical errors. This is unintentional and the practitioner does try to identify and correct these, but some could still be present. Please do not hesitate to contact practitioner for clarification. 12/11/2024 Tracheostomy dependent (ICD-10 - Z93.0) Jessica Is a 34 year-old female who presents the office for weight management follow-up. 01/14/2023:Weight 252.7 pounds, BMI 43.37. Patient welcomed to the practice. Extensively educated on lifestyle modifications including high-protein foods, low carbohydrate snacks, healthy fats, sleep hygiene, stress reduction. Patient provided with educational documentation regarding all of this. 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 12/11/2024: Weight 239, BMI 41. Patient has increased weight since last visit. Has not been seen since May 2024. Patient motivated to get back on track. Will follow-up in 4 weeks. In the meantime is requesting Zepbound to be sent to the pharmacy. Will submit Zepbound 2.5 mg. Discussed proper use and side effects. #Alvummy-Xupyk-Pqrze disease: Follows with neurologist Dr. Bland. Occasions [...] Dictation was accomplished with the use of [employer] voice recognition software, prone to medical misidentifications and grammatical errors. This is unintentional and the practitioner does try to identify and correct these, but some could still be present. Please do not hesitate to contact practitioner for clarification. 01/08/2025 Tracheostomy dependent (ICD-10 - Z93.0) Jessica Is a 34 year-old female who presents the office for weight management follow-up. 01/14/2023:Weight 252.7 pounds, BMI 43.37. Patient welcomed to the practice. Extensively educated on lifestyle modifications including high-protein foods, low carbohydrate snacks, healthy fats, sleep hygiene, stress reduction. Patient provided with educational documentation regarding all of this. 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 12/11/2024: Weight 239, BMI 41. Patient has increased weight since last visit. Has not been seen since May 2024. Patient motivated to get back on track. Will follow-up in 4 weeks. In the meantime is requesting Zepbound to be sent to the pharmacy. Will submit Zepbound 2.5 mg. Discussed proper use and side effects. 01/08/2025: Weight 232, BMI 39 stay on Zepbound 2.5 mg. Focus on increasing resistance training, and continuing with 120 g of protein. #Msafcwr-Ozltr-Nbqqs disease: Follows with neurologist Dr. Bland. Occasions [...] Dictation was accomplished with the use of [employer] voice recognition software, prone to medical misidentifications and grammatical errors. This is unintentional and the practitioner does try to identify and correct these, but some could still be present. Please do not hesitate to contact practitioner for clarification. 02/01/2025 Uwawisv-Rxdak-X ooth disease (ICD-10 - G60.0) Jessica Is a 34 year-old female who presents the office for weight management follow-up. 01/14/2023:Weight 252.7 pounds, BMI 43.37. Patient welcomed to the practice. Extensively educated on lifestyle modifications including high-protein foods, low carbohydrate snacks, healthy fats, sleep hygiene, stress reduction. Patient provided with educational documentation regarding all of this. 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 12/11/2024: Weight 239, BMI 42. Patient has increased weight since last visit. Has not been seen since May 2024. Patient motivated to get back on track. Will follow-up in 4 weeks. In the meantime is requesting Zepbound to be sent to the pharmacy. Will submit Zepbound 2.5 mg. Discussed proper use and side effects. 01/08/2025: Weight 232, BMI 39 stay on Zepbound 2.5 mg. Focus on increasing resistance training, and continuing with 120 g of protein. 02/01/2025: Weight 228, BMI 39 increase Zepbound to 5 mg. Follow-up in 4 weeks. Discussed implementing more resistance training to avoid muscle loss. #Viwdydi-Ohato-Ehrqc disease: Follows with neurologist Dr. Bland. Occasions [...] Dictation was accomplished with the use of [employer] voice recognition software, prone to medical misidentifications and grammatical errors. This is unintentional and the practitioner does try to identify and correct these, but some could still be present. Please do not hesitate to contact practitioner for clarification. 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 01/14/2023:Weight 252.7 pounds, BMI 43.37. Patient welcomed to the practice. Extensively educated on lifestyle modifications including high-protein foods, low carbohydrate snacks, healthy fats, sleep hygiene, stress reduction. Patient provided with educational documentation regarding all of this. 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 12/11/2024: Weight 239, BMI 41. Patient has increased weight since last visit. Has not been seen since May 2024. Patient motivated to get back on track. Will follow-up in 4 weeks. In the meantime is requesting Zepbound to be sent to the pharmacy. Will submit Zepbound 2.5 mg. Discussed proper use and side effects. 01/08/2025: Weight 232, BMI 39 stay on Zepbound 2.5 mg. Focus on increasing resistance training, and continuing with 120 g of protein. 02/01/2025: Weight 228, BMI 39 increase Zepbound to 5 mg. Follow-up in 4 weeks. Discussed implementing more resistance training to avoid muscle loss. #Hfsqtqa-Ngrga-Oqepf disease: Follows with neurologist Dr. Bland. Occasions [...] Dictation was accomplished with the use of [employer] voice recognition software, prone to medical misidentifications and grammatical errors. This is unintentional and the practitioner does try to identify and correct these, but some could still be present. Please do not hesitate to contact practitioner for clarification. 01/08/2025 Encounter for examination of blood pressure without abnormal findings (ICD-10 - Z01.30) Jessica Is a 34 year-old female who presents the office for weight management follow-up. 01/14/2023:Weight 252.7 pounds, BMI 43.37. Patient welcomed to the practice. Extensively educated on lifestyle modifications including high-protein foods, low carbohydrate snacks, healthy fats, sleep hygiene, stress reduction. Patient provided with educational documentation regarding all of this. 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 12/11/2024: Weight 239, BMI 41. Patient has increased weight since last visit. Has not been seen since May 2024. Patient motivated to get back on track. Will follow-up in 4 weeks. In the meantime is requesting Zepbound to be sent to the pharmacy. Will submit Zepbound 2.5 mg. Discussed proper use and side effects. 01/08/2025: Weight 232, BMI 39 stay on Zepbound 2.5 mg. Focus on increasing resistance training, and continuing with 120 g of protein. #Kzjuwxk-Ldgra-Dicqa disease: Follows with neurologist Dr. Bland. Occasions [...] Dictation was accomplished with the use of [employer] voice recognition software, prone to medical misidentifications and grammatical errors. This is unintentional and the practitioner does try to identify and correct these, but some could still be present. Please do not hesitate to contact practitioner for clarification. 12/11/2024 Encounter for examination of blood pressure without abnormal findings (ICD-10 - Z01.30) Jessica Is a 34 year-old female who presents the office for weight management follow-up. 01/14/2023:Weight 252.7 pounds, BMI 43.37. Patient welcomed to the practice. Extensively educated on lifestyle modifications including high-protein foods, low carbohydrate snacks, healthy fats, sleep hygiene, stress reduction. Patient provided with educational documentation regarding all of this. Patient does have a progressive condition Zmyrrrd-Uofsa-Fbgfj that affects her vocal cords, and her [...] exercising regularly, and portions have improved significantly. 12/11/2024: Weight 239, BMI 41. Patient has increased weight since last visit. Has not been seen since May 2024. Patient motivated to get back on track. Will follow-up in 4 weeks. In the meantime is requesting Zepbound to be sent to the pharmacy. Will submit Zepbound 2.5 mg. Discussed proper use and side effects. #Yxntrsn-Rfssi-Pyxot disease: Follows with neurologist Dr. Bland. Occasions [...] Dictation was accomplished with the use of [employer] voice recognition software, prone to medical misidentifications and grammatical errors. This is unintentional and the practitioner does try to identify and correct these, but some could still be present. Please do not hesitate to contact practitioner for clarification. 01/08/2025 Nutritional counseling (ICD-10 - Z71.3) Jessica Is a 34 year-old female who presents the office for weight management follow-up. 01/14/2023:Weight 252.7 pounds, BMI 43.37. Patient welcomed to the practice. Extensively educated on lifestyle modifications including high-protein foods, low carbohydrate snacks, healthy fats, sleep hygiene, stress reduction. Patient provided with educational documentation regarding all of this. Patient does have a progressive condition Iljsjdr-Ddgtl-Duscb that affects her vocal cords, and her [...] exercising regularly, and portions have improved significantly. 12/11/2024: Weight 239, BMI 41. Patient has increased weight since last visit. Has not been seen since May 2024. Patient motivated to get back on track. Will follow-up in 4 weeks. In the meantime is requesting Zepbound to be sent to the pharmacy. Will submit Zepbound 2.5 mg. Discussed proper use and side effects. 01/08/2025: Weight 232, BMI 39 stay on Zepbound 2.5 mg. Focus on increasing resistance training, and continuing with 120 g of protein. #Dpevexc-Dzqiy-Fgcne disease: Follows with neurologist Dr. Bland. Occasions [...] Dictation was accomplished with the use of [employer] voice recognition software, prone to medical misidentifications and grammatical errors. This is unintentional and the practitioner does try to identify and correct these, but some could still be present. Please do not hesitate to contact practitioner for clarification. 02/01/2025 Encounter for examination of blood pressure without abnormal findings (ICD-10 - Z01.30) Jessica Is a 34 year-old female who presents the office for weight management follow-up. 01/14/2023:Weight 252.7 pounds, BMI 43.37. Patient welcomed to the practice. Extensively educated on lifestyle modifications including high-protein foods, low carbohydrate snacks, healthy fats, sleep hygiene, stress reduction. Patient provided with educational documentation regarding all of this. 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 12/11/2024: Weight 239, BMI 41. Patient has increased weight since last visit. Has not been seen since May 2024. Patient motivated to get back on track. Will follow-up in 4 weeks. In the meantime is requesting Zepbound to be sent to the pharmacy. Will submit Zepbound 2.5 mg. Discussed proper use and side effects. 01/08/2025: Weight 232, BMI 39 stay on Zepbound 2.5 mg. Focus on increasing resistance training, and continuing with 120 g of protein. 02/01/2025: Weight 228, BMI 39 increase Zepbound to 5 mg. Follow-up in 4 weeks. Discussed implementing more resistance training to avoid muscle loss. #Hgrshzh-Mvjag-Clbsn disease: Follows with neurologist Dr. Bland. Occasions [...] Dictation was accomplished with the use of [employer] voice recognition software, prone to medical misidentifications and grammatical errors. This is unintentional and the practitioner does try to identify and correct these, but some could still be present. Please do not hesitate to contact practitioner for clarification. 02/01/2025 Nutritional counseling (ICD-10 - Z71.3) Jessica Is a 34 year-old female who presents the office for weight management follow-up. 01/14/2023:Weight 252.7 pounds, BMI 43.37. Patient welcomed to the practice. Extensively educated on lifestyle modifications including high-protein foods, low carbohydrate snacks, healthy fats, sleep hygiene, stress reduction. Patient provided with educational documentation regarding all of this. 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 12/11/2024: Weight 239, BMI 41. Patient has increased weight since last visit. Has not been seen since May 2024. Patient motivated to get back on track. Will follow-up in 4 weeks. In the meantime is requesting Zepbound to be sent to the pharmacy. Will submit Zepbound 2.5 mg. Discussed proper use and side effects. 01/08/2025: Weight 232, BMI 39 stay on Zepbound 2.5 mg. Focus on increasing resistance training, and continuing with 120 g of protein. 02/01/2025: Weight 228, BMI 39 increase Zepbound to 5 mg. Follow-up in 4 weeks. Discussed implementing more resistance training to avoid muscle loss. #Uwlxjoo-Cddym-Yrvyq disease: Follows with neurologist Dr. Bland. Occasions [...] Dictation was accomplished with the use of [employer] voice recognition software, prone to medical misidentifications and grammatical errors. This is unintentional and the practitioner does try to identify and correct these, but some could still be present. Please do not hesitate to contact practitioner for clarification. Plan Of Treatment Pending Test Test Name Order Date EKG 06/02/2023 Next Appt Details Provider Name:MICHELINE HARRINGTON, 03/06/2025 09:45:00 AM, [address], [place], [address], Insurance Providers Payer Name Payer Address Payer Phone Subscriber Number Group Number Insured Name Patient Relationship to Insured Coverage Start Date Coverage End Date [employer] or Options [address] [place] [id number] Jessica Salvador Self - patient is the insured 2 Medications Administered Medication Instructions Date of Administration Dosage Notes Semaglutide 02/11/2023 0.25 sema 0.25mg Semaglutide 02/17/2023 0.25 mg LOT # [id number] 0.25MG Semaglutide 02/23/2023 0.25 mg lot# [id number] Semaglutide 03/02/2023 lot#[id number] 0.25mg Semaglutide 03/11/2023 0.25 mg LLQ SQ Semaglutide 03/17/2023 0.5 mg Semaglutide 03/23/2023 0.5 mg LRQ SQ Semaglutide 03/29/2023 Semaglutide 04/05/2023 0.5 mg LRQ SQ Semaglutide 04/12/2023 1mg Semaglutide 04/21/2023 1 mg Semaglutide 04/30/2023 1 mg Semaglutide 05/05/2023 1 mg Semaglutide 05/12/2023 1 mg Semaglutide 05/19/2023 1 Medical (General) History Medical History History ICD Code tracheotomy 2006 [place] tooth,diagnosed at 11 year s old (vocal cords, muscles) IgA nephropathy PCOS (polycystic ovarian syndrome) E28.2 Surgical History Surgery Date(Month/Year) tracheotomy 2006 c section Hospitalization History Reason Date(Month/Year) tracheotomy c section
--- OUTSIDE RECORDS SUMMARY | 2025-03-05 12:21 | XMS_ITS | Encounter Summary ---
Author Organization [facility] Address [address] [place] [phone] Phone Care Team Providers Care Software Licensing Specialist Name Role Phone Jayshree Mishra MD Primary Care Provider [phone] Gonzalo Gomez MD, PhD Unavailable [phone] Encounter Details Date Type Department Care Team (Late st Contact Info) Description 09/17/2019 Procedure Pass [facility] MRI, [address] [place] [address] Social History Tobacco Use Types Packs/Day Years [...] high school, GED, job training, learning the Turkmen language, technical skills, or developing parenting skills)? [...] Upcoming Encounters Date Type Department Care Team ([facility] st Contact Info) Description 03/21/2025 4:30 PM EST Office Visit [facility] Neuromuscular Service [address] [place] [address] Alok Smyth MD [address] [place] [address] [address] [place] [address] [email or web address] documented as of this encounter Visit Diagnoses Not on filedocumented in this encounter Care Teams Software Licensing Specialist Relationship Specialty Start Date End Date Jayshree Mishra MD [address] [place] [address] PCP - General Internal Medicine 06/27/19 Gonzalo Gomez MD, PhD [address] [place] [id number] [email or web address] Neurology 01/20/23 documented as of this encounter Additional Source Comments The information contained in this document represents components of the legal health record. It is not the complete legal health record.[facility]
--- OUTSIDE RECORDS SUMMARY | 2025-03-05 12:21 | XMS_ITS | Data Portability ---
Author Organization [place] - [facility], [facility] Address [address] [place] [address] Care Team Providers Care Forest Fire Prevention Specialist Name Role Phone KAE DE LOS SANTOS Primary Care Provider Assessment No assessment recorded. Plan of Treatment Reminders Order Date Submit Date Provider Last Modified By Organization Details Last Modified Time Details Appointments None recorded. Lab None recorded. Referral physical therapist referral 2023 024 [email or web address] [email or web address] [facility] [place], [facility] [address], [place], [address], 4 10:24:03 Procedures nerve conduction study/EMG, upper extremity (PROC) - EMG NLS RUE fany Niño spinal accessory nerve, long thoracic for scapular winging, axillary nerve for deltoid weakness 2023 024 [facility] Scheduling, [address] [place], [address], 4 05:49:51 Surgeries None recorded. Imaging XR, shoulder, 2 or more view - 311 recheck right shoulder- New injury 2023 024 [facility], [address], [place], [address], 4 11:14:08 MRI, shoulder, w/o contrast - mri right shoulder evaluate for rct 2023 024 [facility] ([facility]), [address], [place], [address], 4 11:14:08 Medication Orders None recorded. Patient TargetsNo targets recorded. Patient InstructionsNo instructions recorded. Reason for Referral Physical Therapist Referral for Pain of right shoulder joint Referring Physician: Lluvia Pittman, Orthopedic Surgery, [id number] Encounter Date: 07/21/2023 Results Created Date Observation Date Name Description Value Unit Range Abnormal Flag Note LastModifiedBy Organization Detail LastModifiedTime 11/02/19 24 11/02/2023 arthr ogram fluor oscop ic john nce needl e place ment CPT 85007 / right [facility] Access ion Number : [id number] Ana giles Name: Robb Salvador Medica l Record Number : [id number] Date of : 1990 Date of Exam: 2023 Referr ing Physic rehan: Everton Pittman NEOS [address] [facility], [place] [address] Exam: RF Arthro gram Fluoro scopic Guidan ce Needle Placem ent CPT 38937 - Right Room Descri ption: [facility]en Siem CS Fluoro FLUORO SCOPIC ALLY GUIDED RIGHT SHOULD ER INJECT ION HISTOR Y: Pain PROCED URE: Inform ed consen t was obtain ed from the ana t. Risks includ ing bleedi ng and infect ion were outlin ed. Ana t was placed in the supine positi on on the fluoro scopic table. Patien t's right should er was preppe d and draped in the usual steril e fashio n. 1% lidoca ine was admini stered as a local anesth etic. Under fluoro scopic guidan ce a 22-gau ge spinal needle was advanc ed into the right glenoh umeral joint. Intra- articu lar needle positi on was confir med with a small amount of Isovue contra st. After confir mation of needle positi on approx imatel y 10 mL of a dilute gadoli nium soluti on was inject ed into the glenoh umeral joint. DAP 12.32 uGy*m2 IMPRES ALFREDO: Fluoro scopic ally guided right should er inject ion. See separa te MR arthro gram report . Electr onical ly Signed By: Georgina Booker MD [facility] ([facility]) [address] [place], [address], 11/08/2023 08:39:15 11/02/19 24 11/02/2023 rf, arthr roi mario raiza inj right CPT 71664 [facility]- [facility] Access ion Number : [id number] Ana giles Name: Robb Salvador Record Number : [id number] Date of : 1990 Date of Exam: 2023 Referr ing Physic rehan: Everton PittmanS [address] [facility], [place] [address] Exam: RF Arthro gram Should er Inj CPT 33348 - Right Room Descri ption: Poyen Siem CS Fluoro FLUORO SCOPIC ALLY GUIDED RIGHT SHOULD ER INJECT ION HISTOR Y: Pain PROCED URE: Inform ed consen t was obtain ed from the patien t. Risks includ ing bleedi ng and infect ion were outlin ed. Patien t was placed in the supine positi on on the fluoro scopic table. Patien t's right should er was preppe d and draped in the usual steril e fashio n. 1% lidoca ine was admini stered as a local anesth etic. Under fluoro scopic guidan ce a 22-gau ge spinal needle was advanc ed into the right glenoh umeral joint. Intra- articu lar needle positi on was confir med with a small amount of Isovue contra st. After confir mation of needle positi on approx imatel y 10 mL of a dilute gadoli nium soluti on was inject ed into the glenoh umeral joint. DAP 12.32 uGy*m2 IMPRES ALFREDO: Fluoro scopic ally guided right should er inject ion. See separa te MR arthro gram report . Electr onical ly Signed By: Georgina Booker MD [facility] ([facility]) [address] [place], [address], 11/08/2023 08:39:24 11/02/19 24 11/02/2023 MRI, fabiano raiza, w/ contr ast [facility] [place] [facility] [place] Access ion Number : [id number] Patiloco t Name: Robb Salvador Medica l Record Number : [id number] Date of : 1990 Date of Exam: 2023 Referr [facility] Physic rehan: Everton Pittman NEOS [address] [facility], [place] [address] Exam: MR Should er (C+) CPT 54266 (Post Arthro gram) - Right Room Descri ption: Poyen Siem Verio 3.0T MR ARTHRO GRAM RIGHT SHOULD ER HISTOR Y: Pain. FINDIN GS: Small subacr omial/ subdel toid bursit is. Mild supras pinatu s tendin opathy . Infras pinatu s tendon is intact . Teres minor tendon is intact . Subsca pulari s tendon is intact . Long head of the biceps tendon is intact No eviden ce of labral tear. No eviden ce of glenoh umeral ligame nt tear. IMPRES ALFREDO: Mild supras pinatu s tendin opathy . Small subacr omial/ subdel toid bursit is. Electr onical ly Signed By: Georgina Booker MD [facility] ([facility]) [address] [facility], [place], [address], 11/08/2023 08:39:33 02/02/20 24 01/25/2024 MRI, cervi js spine , w/o contr ast [facility]- [facility] Access ion Number : [id number] Ana t Name: Robb Salvador [employer] Record Number : [id number] Date of : 1990 Date of Exam: 2023 Referr ing Physic rehan: Iza Mendoza NEOS [address] [facility] [place] [address] Exam: MR Cervic al Spine (C-) CPT 18589 Room Descri ption: Poyen Siem Espr 1.5 HISTOR Y: Right arm pain and parest hesias . TECHNI QUE: Multip lanar multis equenc e MRI of the cervic al spine withou t contra st. COMPAR MARY: No prior studie s are availa ble for compar mary at [facility] . FINDIN GS: Multip le images are degrad ed by ana edmonds which dimini shes detail , and interp retati on was made in light of this techni js callahan. There is mild revers al of the cervic al lordos is withou t sublux ation the cervic al verteb ral bodies are normal in height . The cervic al verteb ral bodies are normal in height . No marrow or parasp inal edema. The cervic al discs are normal in height and signal . The visual ized pilot plant operator ior crania l fossa struct ures and cervic omedul erica juncti on are unrema rkable . The cervic al cord is normal in signal . The parasp inal soft tissue s are unrema rkable . C2-C3: No centra l canal or forami nal stenos is. C3-C4: Small centra l disc protru alfredo. Mild centra l canal narrow ing. No forami nal stenos is. C4-C5: Small centra l disc protru alfredo. Minima l centra l canal narrow ing. No forami nal stenos is. C5-C6: Small centra l disc protru alfredo. No signif icant centra l canal or forami nal narrow ing. C6-C7: Small centra l disc protru alfredo. No centra l canal or forami nal stenos is. C7-T1: No centra l canal or forami nal stenos is. IMPRES ALFREDO: 1. Small disc hernia tions are presen t at multip le levels withou t signif icant centra l canal narrow ing. No cord compre ssion or cord signal abnorm ality. No signif icant forami nal narrow ing or exitin g nerve root imping ement. 2. Revers al of the cervic al lordos is is nonspe cific, but could be due to muscle spasm. Electr onical ly Signed By: Chele flores [facility] ([facility]) [address], [place], [address], 02/04/2024 16:39:37 04/04/20 24 04/04/2024 nerve condu ction study /EMG, upper extre mity (PROC ) No observ ation record ed. L[facility] [address], [place], [address], 05/25/2024 16:34:15 Result Notes Documentation Provider Name and Address Organization Details Recorded Time Mri, Shoulder, W/ Contrast : [facility] Accession Number: [id number] Patient Name: Jessica Salvador Date of : 1990 Date of Exam: 11-02-2023 Referring Physician: Lluvia Pittman [address] [place], [place] [address] Exam: MR Shoulder (C+) CPT 53045 (Post Arthrogram) - Right Room Description: [facility] Verio 3.0T MR ARTHROGRAM RIGHT SHOULDER HISTORY: Pain. FINDINGS: Small subacromial/subdeltoid bursitis. Mild supraspinatus tendinopathy. Infraspinatus tendon is intact. Teres minor tendon is intact. Subscapularis tendon is intact. Long head of the biceps tendon is intact No evidence of labral tear. No evidence of glenohumeral ligament tear. IMPRESSION: Mild supraspinatus tendinopathy. Small subacromial/subdeltoid bursitis. Electronically Signed By: Gonzalo Pittman PA-C [address], [place], [address], [facility] 11/08/2023 08:39:33 Mri, Cervical Spine, W/o Contrast : [facility] Accession Number: [id number] Patient Name: Jessica Salvador Date of : 1990 Date of Exam: 01-25-2024 Referring Physician: Iza Mendoza [address] [place] [address] Exam: MR Cervical Spine (C-) CPT 29620 Room Description: [facility] Espr 1.5 HISTORY: Right arm pain and paresthesias. TECHNIQUE: Multiplanar multisequence MRI of the cervical spine without contrast. COMPARISON: No prior studies are available for comparison at [facility]. FINDINGS: Multiple images are degraded by patient motion which diminishes detail, and interpretation was made in light of this technical confine. There is mild reversal of the cervical lordosis without subluxation the cervical vertebral bodies are normal in height. The cervical vertebral bodies are normal in height. No marrow or paraspinal edema. The cervical discs are normal in height and signal. The visualized posterior cranial fossa structures and cervicomedullary junction are unremarkable. The cervical cord is normal in signal. The paraspinal soft tissues are unremarkable. C2-C3: No central canal or foraminal stenosis. C3-C4: Small central disc protrusion. Mild central canal narrowing. No foraminal stenosis. C4-C5: Small central disc protrusion. Minimal central canal narrowing. No foraminal stenosis. C5-C6: Small central disc protrusion. No significant central canal or foraminal narrowing. C6-C7: Small central disc protrusion. No central canal or foraminal stenosis. C7-T1: No central canal or foraminal stenosis. IMPRESSION: 1. Small disc herniations are present at multiple levels without significant central canal narrowing. No cord compression or cord signal abnormality. No significant foraminal narrowing or exiting nerve root impingement. 2. Reversal of the cervical lordosis is nonspecific, but could be due to muscle spasm. Electronically Signed By: Chele Mendoza MD [address] [place] [address], [address], [facility] 02/04/2024 16:39:38 Problems Name Problem SNOMED Code Status Onset Date Resolution Date Notes Provider Name and Address Organization Details Recorded Time Pain of right shoulder joint 822994239958072 00 Active 2023 RANDAL goodwin [facility] 12:58:27 Problem Notes None recorded. Procedures Surgical History Date Name Laterality Status Provider Name and Address Organization Details Recorded Time 4 Sports Shoulder 4&1 completed Lluvia Pittman PA-C [address] [facility], [place], [address], [facility] 11/29/2023 09:34:38 4 Sports Shoulder 4&1 completed Lluvia Pittman PA-C [address], [place], [address], [facility] 09/07/2023 10:34:00 4 Sports Shoulder 4&1 completed Lluvia Pittman PA-C [address], [place], [address], [facility] 07/23/2023 07:57:09 Imaging Results None recorded. Procedure Notes None recorded. Medical Equipment None Reported. Allergies Allergen ID Allergen Name Allergen Category Reaction Reaction Severity Criticality Documentation Date Start Date Code Code System Note Provider Name and Address Organization Details Recorded Time 775535 prednison e medicatio n Not available Not available Not available 10/26/20232023 8640 RxNorm Not Available [facility] 09:08:30 378550 prednison e medicatio n Not available Not available Not available 12/14/2023 8640 RxNorm ONESIMO goodwin [facility] 08:57:33 Medications Name Sig Start Date Stop Date Status Note LastModified by Organization Details LastModified Time celecoxib 200 mg capsule TAKE 1 CAPSULE ORALLY 2 TIMES A DAY FOR 30 DAYS active Not Available Not Available No t Available cyclobenzap rine 10 mg tablet PLEASE SEE ATTACHED FOR DETAILED DIRECTION S 09/05 completed Not Available Not Available Not Available acetaminoph en 325 mg tablet TAKE 3 TABLETS BY MOUTH 3 TIMES A DAY active Not Available Not Available No t Available doxycycline hyclate 100 mg capsule TAKE 1 CAPSULE ORALLY 2 TIMES A DAY FOR 10 DAYS active Not Available Not Available No t Available cefpodoxime 200 mg tablet TAKE 1 TABLET BY MOUTH TWICE A DAY MUST ADMINISTE R WITH A MEAL/FOOD 09/05 completed Not Available Not Available Not Available nystatin 100,000 unit/gram topical ointment APPLY TO AFFECTED AREA TWICE A DAY active Not Available Not Available No t Available fluconazole 150 mg tablet TAKE 1 TABLET BY MOUTH ONCE 09/05 completed Not Available Not Available Not Available benzonatate 200 mg capsule TAKE 1 CAPSULE BY MOUTH TWICE A DAY NEEDED FOR COUGH FOR 30 DAYS NOT COVERED 09/05 completed Not Available Not Available Not Available valacyclovi r 1 gram tablet TAKE 1 TABLET BY MOUTH EVERY DAY active Not Available Not Available No t Available phentermine 15 mg capsule TAKE 1 CAPSULE BY MOUTH DAILY active Not Available Not Available No t Available doxycycline monohydrate 100 mg tablet TAKE 1 TABLET BY MOUTH TWICE A DAY FOR 14 DAYS 09/05 completed Not Available Not Available Not Available phentermine 30 mg capsule TAKE 1 CAPSULE BY MOUTH DAILY active Not Available Not Available No t Available meloxicam 7.5 mg tablet TAKE 1 TABLET BY MOUTH EVERY DAY FOR 14 DAYS active Not Available Not Available No t Available baclofen 10 mg tablet TAKE 1 TABLET BY MOUTH DAILY AT BEDTIME,F OR 5 DAYS 09/05 completed Not Available Not Available Not Available dexamethaso ne 4 mg tablet TAKE 1 TABLET BY MOUTH TWICE A DAY FOR 5 DAYS THEN 1 TAB BY MOUTH DAILY FOR 5 DAYS active Not Available Not Available No t Available ibuprofen 400 mg tablet TAKE 1 TABLET BY MOUTH EVERY 6 HOURS active Not Available Not Available No t Available diclofenac sodium 75 mg tablet,gabe yed release TAKE 1 TABLET BY MOUTH TWICE A DAY FOR 14 DAYS 09/05 completed Not Available Not Available Not Available codeine 10 mg-guaifene sin 100 mg/5 mL oral liquid TAKE 10 ML BY MOUTH EVERY 6 HOURS NEEDED FOR COUGH 09/05 completed Not Available Not Available Not Available nystatin 100,000 unit/gram topical powder APPLY TO AFFECTED AREA TWICE A DAY active Not Available Not Available No t Available levalbutero l 1.25 mg/3 mL solution for nebulizatio n USE 1.25 MG (3 ML) INHALED VIA NEBULIZER 2 TIMES A DAY FOR 30 DAYS active Not Available Not Available No t Available ibuprofen 600 mg tablet TAKE 1 TABLET BY MOUTH THREE TIMES A DAY FOR 7 DAYS 09/05 completed Not Available Not Available Not Available levofloxaci n 500 mg tablet TAKE 1 TABLET BY MOUTH EVERY DAY FOR 14 DAYS active Not Available Not Available No t Available ketoconazol e 2 % topical cream APPLY TO AFFECTED AREA EVERY DAY FOR 7 DAYS active Not Available Not Available No t Available sertraline 50 mg tablet TAKE 1 TABLET BY MOUTH EVERY DAY 09/05 completed Not Available Not Available Not Available amoxicillin 875 mg-potassiu m clavulanate 125 mg tablet TAKE 1 TABLET BY MOUTH TWICE A DAY FOR 10 DAYS 06/26 completed Not Available Not Available Not Available cyclobenzap rine 5 mg tablet TAKE 1 TABLET BY MOUTH 3 TIMES A DAY FOR 14 DAYS active Not Available Not Available No t Available diclofenac 1 % topical gel TAKE 2 GRAMS (TOPICAL) 4 TIMES PER DAY FOR 10 DAYS 09/05 completed Not Available Not Available Not Available Combivent Respimat 20 mcg-100 mcg/actuati on solution for inhalation INHALE 1 PUFF 4 TIMES A DAY FOR 30 DAYS SPACE EVENLY DURING WAKING HOURS active Not Available Not Available No t Available Vitals Date Recorded Body height Body mass index (BMI) Body weight Provider Name and Address Organization Details Last Updated DateTime 06/26/2024 162.56 cm 39.5 kg/m2 182218.25 g Iza Mendoza MD [facility] [address], [place], [address], [facility] 06/26/2024 16:00:31 Date Recorded Body height Body mass index (BMI) Body weight Provider Name and Address Organization Details Last Updated DateTime 11/29/2023 162.56 cm 39.5 kg/m2 574787.25 g CORNEL CASTAÑEDA [facility] 11/29/2023 09:19:30 Date Recorded Body height Body mass index (BMI) Body weight Provider Name and Address Organization Details Last Updated DateTime 12/24/2023 162.56 cm 39.5 kg/m2 726097.25 g ONESIMO CORTES [facility] 12/24/2023 10:12:46 Social History None recorded. Functional Status None recorded. Mental Status None recorded. Family History Nothing Reported. Medical History Condition Response Allergies/Hayfever N Coronary Artery Disease N Breathing or lung disorders Y Anxiety/Depression N Emphysema N Nerve Disorders Y Thyroid Problems N COPD N Pacemaker N Kidney/Bladder Problems N Anemia N Vascular Disease N Heart Trouble N Heart Attack (MD) N Gastrointestinal Disease N Cholesterol N Diabetes N Autoimmune disease N Bleeding Disorder N Orthotics N Seizures/Epilepsy N Arthritis N Blood Clot N AIDS/HIV N Congestive Heart Failure (CHF) N Acid Reflux (GERD) N Cancer N Stroke N Asthma N Circulation Problems N Peripheral Vascular Disease N Sleep Apnea Y Hepatitis N Heart Disease N Rheumatoid Arthritis N Pulmonary Embolism N Arrhythmia N Headaches N Fibromyalgia N Hypertension N Osteoporosis N Gynecological HistoryNo gynecological history recorded. Obstetrics History GPAL:G 0 P 0 0 0 0 Past Encounters Encounter ID Performer Location Encounter Start Date Encounter Closed Date Diagnosis/Indication Diagnosis SNOMED-CT Code Diagnosis ICD10 Code Diagnosis IMO Codes Diagnosis Note [id number] Lluvia Pittman PA-C [address] [place] [address] 07/21/2023 15:35:58 08/18/2023 10:24:03 Pain of right shoulder joint 4555673328 9402836 M25.505 [id number] Lluvia Pittman PA-C [address] [place] [address] 09/07/2023 09:09:32 09/29/2023 14:49:09 Pain of right shoulder joint 4186491242 9994693 M25.772 [id number] Lluvia Pittman PA-C [address] [place] [address] 11/29/2023 09:09:50 12/22/2023 12:38:23 Calcific tendinitis of right shoulder 9389693007 19802 M75.31 [id number] Iza Mendoza MD [address] [place] [address] 12/24/2023 10:02:22 01/18/2024 15:49:08 Pain of right shoulder joint 0465596517 0553878 M25.511 Cervical radiculopathy 45274896 M54.12 [id number] Iza Mendoza MD [facility] - [address] [place] [address] 06/26/2024 15:56:10 07/10/2024 19:00:07 Pain of right shoulder joint 4820548034 [id number] M25.511 [id number] Health Concerns Section Related Observation LastModified by Organization Detai ls LastModified Time None Recorded Concern Status LastModified by Organization Details LastModified Time None Recorded Advance Directives Directive None Recorded Payers Insurance Date Sequence Insurance Name Policy Number Policy Lynn Covered Member ID Lynn Member ID Guarantor Name 07/10/2024 1 [facility] - DOS ON OR AFTER 2022 - ONE CARE (MEDICARE REPLACEMENT/ADV ANTAGE - HMO) Jessica Salvador [id number] Jessica Salvador Notes Date Note Type Note Provider Name and Address Organization Details Recorded Time 07/21/2023 text/html Patient seen under general supervision of Dr. Branham who was available but who did not see the patient. Clinical Update: Patient has been having worsening shoulder pain despite physical therapy. Increased difficulty with range of motion. HPI: Patient is a 32-year-old female who presents as urgent care walk-in today with complaint of right shoulder pain. About a week ago she was doing workouts in the gym, changed the way that she was bench pressing. She has since had pain and difficulty with range of motion in the right shoulder. She has a history of Hmhocyc-Gbfnk-Abcuq disease. Denies numbness or tingling Past family, medical, social history and review of systems has been reviewed, updated and is located in the patient s chart. Examination:The patient is well appearing and in no apparent distress. Alert and oriented x3. Gait is symmetric. Right shoulder skin intact, no erythema edema or ecchymosis. She has limited overhead range of motion of the right shoulder, worsened compared to previous exam. Limited internal and external rotation. Positive impingement signs. No instability in the shoulder. Distally neuromotor intact, sensation intact throughout Impression: 32-year-old female with right shoulder adhesive capsulitis Plan: Discussed findings with the patient. At this point recommended cortisone injection for adhesive capsulitis. See procedure documentation. She will follow up as needed. [facility] physical [facility] speech recognition child nutrition manager software was used to create portions of this document. An attempt at proofreading has been made to minimize errors. Please call for corrections. Lluvia Pittman PA-C [address] [place] [address] [address] [facility], [place], [address], [facility] 07/23/2023 07:57:51 09/07/2023 text/html Patient seen under general supervision of Dr. Ventura who was available but who did not see the patient. Update 09/07/23: Patient had good relief from cortisone for her frozen shoulder at last appointment, but unfortunately fell 2 weeks ago while outside laying mulch and landed directly onto the shoulder. Has had significant increase in pain since then and cannot move the shoulder much actively. She has continued in physical therapy but they are concerned for further injury. She has developed increase in weakness in the right shoulder and is in a lot of pain Clinical Update: Patient has been having worsening shoulder pain despite physical therapy. Increased difficulty with range of motion. HPI: Patient is a 32-year-old female who presents as urgent care walk-in today with complaint of right shoulder pain. About a week ago she was doing workouts in the gym, changed the way that she was bench pressing. She has since had pain and difficulty with range of motion in the right shoulder. She has a history of Wxtbndo-Rbndb-Ufmxe disease. Denies numbness or tingling Past family, medical, social history and review of systems has been reviewed, updated and is located in the patient s chart. Examination:The patient is well appearing and in no apparent distress. Alert and oriented x3. Gait is symmetric. Right shoulder skin intact, no erythema, there is edema and hypertrophy about the trapezius and periscapular musculature with trigger points and significant guarding. Tender to palpation about the lateral and anterior shoulder. She has limited overhead range of motion of the right shoulder, worsened compared to previous exam. Limited internal and external rotation. Positive impingement signs. No instability in the shoulder. There is a sulcus sign today. 3/5 strength with rotator cuff testing compared to contralateral side, specifically empty can test and modified liftoff. Distally neuromotor intact, sensation intact throughout Xrays ordered obtained and reviewed today at [facility] including 4 views of the right shoulder which reveals calcific tendinopathy, humeral head is seated inferiorly in the glenoid with likely joint effusion, no obvious fractures or dislocations appreciated Impression: 32-year-old female with right shoulder adhesive capsulitis, calcific tendinopathy today, but concer for rotator cuff pathology given weakness on exam and recent fall Plan: Discussed findings with the patient. At this point recommended cortisone injection for calcific tendinopathy despite it being less than 3 months since previous injection. See procedure documentation. We will also order an MRI to evaluate for rotator cuff pathology given new fall and exam findings. She will follow up in 3 weeks for MRI review. Continue physical therapy [facility]ST[facility] speech recognition child nutrition manager software was used to create portions of this document. An attempt at proofreading has been made to minimize errors. Please call for corrections. Lluvia Pittman PA-C [address] [place] [address], [place], [address], [facility] 09/07/2023 11:14:30 11/29/2023 text/html Patient seen under general supervision of Dr. Thomas who was available but who did not see the patient. Update 11/29/23: Patient was finally able to have her shoulder MRI done earlier this month. She tells me her shoulder has felt horrible. It is still locking on her, she has continued pain, she has had to stop doing things around the house. She felt as though therapy was making it worse at one point so stopped going after a while. She has had two cortisone injections without significant relief. Update 09/07/23: Patient had good relief from cortisone for her frozen shoulder at last appointment, but unfortunately fell 2 weeks ago while outside laying mulch and landed directly onto the shoulder. Has had significant increase in pain since then and cannot move the shoulder much actively. She has continued in physical therapy but they are concerned for further injury. She has developed increase in weakness in the right shoulder and is in a lot of pain Clinical Update: Patient has been having worsening shoulder pain despite physical therapy. Increased difficulty with range of motion. HPI: Patient is a 32-year-old female who presents as urgent care walk-in today with complaint of right shoulder pain. About a week ago she was doing workouts in the gym, changed the way that she was bench pressing. She has since had pain and difficulty with range of motion in the right shoulder. She has a history of Etztxaw-Lvala-Gsrcy disease. Denies numbness or tingling Past family, medical, social history and review of systems has been reviewed, updated and is located in the patient s chart. Examination:The patient is well appearing and in no apparent distress. Alert and oriented x3. Gait is symmetric. Right shoulder skin intact, no erythema, there is edema and hypertrophy about the trapezius and periscapular musculature with trigger points and significant guarding. Tender to palpation about the lateral and anterior shoulder. She has limited overhead range of motion of the right shoulder. Limited internal and external rotation. Positive impingement signs. No instability in the shoulder. There is a sulcus sign today. 3/5 strength with rotator cuff testing compared to contralateral side, specifically empty can test and modified liftoff, although this seems to be due to pain today and guarding. Distally neuromotor intact, sensation intact throughout Xrays ordered obtained and reviewed today at [facility] including 4 views of the right shoulder which reveals calcific tendinopathy, humeral head is seated inferiorly in the glenoid with likely joint effusion, no obvious fractures or dislocations appreciated MRI of the right shoulder reviewed today which demonstrated some tendinopathy of the rotator cuff but no tearing, and some subacromial bursitis Impression: 33-year-old female with right shoulder adhesive capsulitis, repeated calcific tendinopathy and bursitis refractory to PT and cortisonePlan: Discussed findings with the patient. At this point offered one more cortisone injection which she accepted, followed by surgical consult with our shoulder specialist given decreased benefit with conservative treatment. See procedure documentation. Appointment is made for her today. Questions answeredDrThe Hospitals of [facility] speech recognition child nutrition manager software was used to create portions of this document. An attempt at proofreading has been made to minimize errors. Please call for corrections. Lluvia Pittman PA-C [address] [facility] [address] [facility], [place], [address], 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 Pain began in June after doing an overhead press at the gym. Noted some initial pain that improved over the ensuing 2 months. Then unfortunately had an additional fall onto the right side with recurrent symptoms, which have gotten worse since. Pain is felt in the scapula, present all the time even at rest. Notes that the strap of her bra can cause quite a bit of discomfort. Pain radiates down the arm to her elbow. Pain is exacerbated by neck range of motion as well as attempts at overhead reach. Describes tingling and burning throughout the arm. 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 She has been treated with cortisone injection x 3, most recent just a few weeks ago, all without improvement in symptoms. Presents today for further evaluation and management. Past family, medical, social history and review of systems have been reviewed and updated on the medical history sheet saved to the patient's chart. A 12-point review of systems is negative x12 except as noted above and/or on the medical history sheet. Examination: Very pleasant 33-year-old young lady in no acute distress. 5 feet 4 inches, 230 pounds. On exam of the right upper extremity, skin over the shoulder is intact. No effusion, no gross atrophy. The shoulder is held held in a protracted position. Attempted active forward elevation yield very little motion and quite a bit of shaking and exacerbation of dyskinetic scapular movements. Passive forward elevation itself is limited to 90 degrees. Passive ER is to 70 with negative ER lag. IR is to L4. Drop arm sign with empty can testing. 5-/5 with ER and IR. 5/5 with elbow flexion. 5-/5 with shoulder abduction. sensation intact in an axillary distribution. Fires EPL, FPL and intrinsics. Hand is warm and well-perfused. Cervical spine range of motion is fairly well preserved, though lateral rotation to the left does reproduce a lot of her superolateral shoulder discomfort. Imagin views of the Right shoulder ordered and obtained at [facility] 09/07/2023 were reviewed during the visit. These demonstrate increased space within the glenohumeral joint and even a slight inferior pseudosubluxation, particularly evident on AP internal rotation view, which may reflect positioning versus effusion. AC joint space well-preserved. Humeral head centered on axillary view. No dystrophic calcium deposition. Type II acromion. MRI arthrogram of the right shoulder performed at [facility] 11-23 independently reviewed by me on Ortho PACS during the visit today. This demonstrates intact posterior superior cuff and subscapularis, minimal tendinopathy, no partial-thickness or full-thickness tears appreciated. Glenohumeral articular cartilage well-preserved. No anterior posterior labral tear. No evidence for SLAP tear. Long head biceps tendon runs normally within the bicipital groove. No significant AC joint arthrosis. Type II acromion. Small amount of fluid within the subacromial space may reflect mild bursitis. No atrophy or fat infiltration of rotator cuff on T1 sagittal's. 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 Exam is notable for lateral scapular winging, altered shoulder mechanics, and stiffness with both active and passive range of motion of the shoulder. Plan: Discussed with the patient that there is no structural issue with the shoulder to explain these findings. Her exam is notable for scapular winging, which could certainly be playing a role. Whether this is the result of a new injury to the nerves controlling the scapula or a manifestation of CMT is less clear. I would like to have her go for an EMG/NCS of the right upper extremity with particular attention to the long thoracic nerve and spinal accessory nerve to evaluate scapular winging as well as axillary nerve to evaluate deltoid function. On the differential would also be a cervical spine radiculopathy, particularly given exacerbation of symptoms with neck range of motion, however this is less likely based on her exam today. We will plan to see the patient back once the EMG is done to review the results and talk about next steps based on the findings. [employer] speech recognition child nutrition manager software was used to create portions of this document. An attempt at proofreading has been made to minimize errors. Please call for corrections. Iza Mendoza MD [address] [place], [place] [address], [place], [address], [facility] 01/13/2024 15:24:41 06/26/2024 text/html Issue: Right shoulder scapular winging, Zacpheb-Lzqzj-Efmcz syndrome Interval History: This is a 33-year-old edavs-jmir-sihdechr woman with Dnwqgyf-Thzai-Rplhk syndrome who presents to clinic today for evaluation management of right shoulder complaints. Pain began in June 2023 after doing an overhead press at the gym. Noted some initial pain that improved over the ensuing 2 months. Then unfortunately had an additional fall onto the right side with recurrent symptoms, which have gotten worse since. Pain is felt in the scapula, present all the time even at rest. Notes that the strap of her bra can cause quite a bit of discomfort. Pain radiates down the arm to her elbow. Pain is exacerbated by neck range of motion as well as attempts at overhead reach. Describes tingling and burning throughout the arm. 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 She has been treated with cortisone injection x 3, most recent November 2023, all without improvement in symptoms. Her exam when I saw her last in December was suggestive of lateral scapular winging. I had her go for an EMG to evaluate for spinal accessory nerve issue and--at her request--C-spine MRI. She returns today to review results of those studies. Past family, medical, social history and review of systems have been reviewed and updated on the medical history sheet saved to the patient's chart. A 12-point review of systems is negative x12 except as noted above and/or on the medical history sheet. Examination: Very pleasant 33-year-old young lady in no acute distress. 5 feet 4 inches, 230 pounds. On exam of the right upper extremity, skin over the shoulder is intact. No effusion, no gross atrophy. The shoulder is held held in a protracted position. Attempted active forward elevation yield very little motion and quite a bit of shaking and exacerbation of dyskinetic scapular movements. Passive forward elevation itself is limited to 90 degrees. Passive ER is to 70 with negative ER lag. IR is to L4. Drop arm sign with empty can testing. 5-/5 with ER and IR. 5/5 with elbow flexion. 5-/5 with shoulder abduction. sensation intact in an axillary distribution. Fires EPL, FPL and intrinsics. Hand is warm and well-perfused. Cervical spine range of motion is fairly well preserved, though lateral rotation to the left does reproduce a lot of her superolateral shoulder discomfort. Imagin views of the Right shoulder ordered and obtained at [facility] 09/07/2023 were reviewed during the visit. These demonstrate increased space within the glenohumeral joint and even a slight inferior pseudosubluxation, particularly evident on AP internal rotation view, which may reflect positioning versus effusion. AC joint space well-preserved. Humeral head centered on axillary view. No dystrophic calcium deposition. Type II acromion. MRI arthrogram of the right shoulder performed at [facility] 11/02/2023 independently reviewed by me on Ortho PACS during the visit today. This demonstrates intact posterior superior cuff and subscapularis, minimal tendinopathy, no partial-thickness or full-thickness tears appreciated. Glenohumeral articular cartilage well-preserved. No anterior posterior labral tear. No evidence for SLAP tear. Long head biceps tendon runs normally within the bicipital groove. No significant AC joint arthrosis. Type II acromion. Small amount of fluid within the subacromial space may reflect mild bursitis. No atrophy or fat infiltration of rotator cuff on T1 sagittal's. C-spine MRI performed at [facility] 01/25/2024, report independently reviewed by me, demonstrates small disc herniations are present at multiple levels without significant central canal narrowing. No cord compression or cord signal abnormality. No significant foraminal narrowing or exitingnerve root impingement. 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 No evidence for acute denervation of trapezius, deltoid, or serratus anterior. 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 Exam is notable for lateral scapular winging, altered shoulder mechanics, and stiffness with both active and passive range of motion of the shoulder. Plan: Discussed with the patient that there is no structural issue with the shoulder to explain these findings. Her exam is notable for scapular winging, which could certainly be playing a role. Whether this is the result of a new injury to the nerves controlling the scapula or a manifestation of CMT is less clear, as CMT typically addresses distal rather than proximal nerves. EMG is notable only for findings consistent with CMT, with no obvious acute changes to the trapezius. On the differential would also be a cervical spine radiculopathy, particularly given exacerbation of symptoms with neck range of motion, however this is less likely based on her exam and C-spine MRI findings. Discussed that without a stable scapula, it may be difficult to restore functional use of the shoulder. I will plan to refer her to Dr. Isidro Del Rio at [facility] to see if she is a candidate for a scapulopexy or scapulothoracic fusion. [facility] speech recognition child nutrition manager software was used to create portions of this document. An attempt at proofreading has been made to minimize errors. Please call for corrections. Iza Mendoza MD [address], [place], [address], [facility] 06/26/2024 16:56:46 OBGyn Episode No OBEpisode recorded.
--- OUTSIDE RECORDS SUMMARY | 2025-03-05 12:21 | XMS_ITS | Encounter Summary ---
Author Organization [facility] Address [address] [place] [id number] Phone Care Team Providers Care Web Content Executive Name Role Phone Jayshree Mishra MD Primary Care Provider Gonzalo Gomez MD, PhD Unavailable [phone] Encounter Details Date Type Department Care Team (Late st Contact Info) Description 08/31/2019 Telephone VIRTUAL DEPARTMENT [address] [place] [id number] Maira Valenzuela MD [address] [place] [address] Social History Tobacco Use Types Packs/Day Years [...] high school, GED, job training, learning the Kosovan language, technical skills, or developing parenting skills)? [...] Description 03/21/2025 4:30 PM EST Office Visit [facility] Neuromuscular Service [address] [facility] [place] [address] Alok Smyth MD [address] [facility] [address] [place] [address] [email or web address] documented as of this encounter Visit Diagnoses Not on filedocumented in this encounter Additional Health Concerns Infection Onset Date Last Indicated Resolved Time Clearance-CoV Comment:Auto-resolved with negative COVID-19 PCR 08/31/2019 08/31/2019 08/31/2019 2:27 PM E DT CoV-Risk Comment:See [facility] note 09/1509/14/2019 09/14/2019 020 9:22 AM EDT documented as of this encounter Care Teams Web Content Executive Relationship Specialty Start Date End Date Jayshree Mishra MD [address] [place] [address] PCP - General Internal Medicine 06/27/19 Gonzalo Gomez MD, PhD [address] [facility] [place] [address] Neurology 01/20/23 documented as of this encounter Additional Source Comments The information contained in this document represents components of the legal health record. It is not the complete legal health record.[facility]
--- OUTSIDE RECORDS SUMMARY | 2025-03-05 12:22 | XMS_ITS | Clinical Summary ---
Author Organization [facility] Address [address] [place] [address] Care Team Providers Care Supervisor Roller Shop Name Role Phone Unavailable Primary Care Provider Unavailabl e Encounters Date Type Department Care Team Description 12/19/2024 Transcribe Orders [facility] PRIMARY CARE SCAN Rashaun Irwin MD [...] of 3 - 19+ 3-dose series) 07/18/2010 COVID-19 Vaccine (2023-2 5 season) 2025 HPV Vaccines (No Doses Required) Completed Pneumococcal Vaccine: Pediat antoni (0-5 Years) and At-Risk Patients (6 to 49 Years) Aged Out No longer eligible b ased on patient's age to complete this topic
--- OUTSIDE RECORDS SUMMARY | 2025-03-05 12:22 | XMS_ITS | Encounter Summary ---
Author Organization [facility] Address [address] [place] [id number] Phone Care Team Providers Care Supervisor Modern Languages Name Role Phone Unknown, Unknown Primary Care Provider Jayshree Caldera MD Primary Care Provider Gonzalo Gomez MD, PhD Unavailable [phone] Encounter Details Date Type Department Care Team (Late Contact Info) Description 05/25/2019 Procedure Pass [facility] for Outpatient [facility] - MRI [address] [facility]th [place] [address] Social History Tobacco Use Types Packs/Day Years [...] 03/21/2025 4:30 PM EST Office [facility] [address] [facility], 8th [place] [address] Alok Smyth MD 55 [facility] [address] [place] [address] [email or web address] documented as of this encounter Visit Diagnoses Not on filedocumented in this encounter Additional Health Concerns Infection Onset Date Last Indicated Resolved Time Clearance-CoV Comment:Auto-resolved with negative COVID-19 PCR 08/31/2019 08/31/2019 08/31/2019 2:27 PM E DT CoV-Risk Comment:See [facility] note 09/1509/14/2019 09/14/2019 020 9:22 AM EDT documented as of this encounter Care Teams Supervisor Modern Languages Relationship Specialty Start Date End Date Unknown, Unknown, MD PCP - General 04/20/19 06/26/19 Jayshree Mishra MD [address] [place] [address] PCP - General Internal Medicine 06/27/19 Gonzalo Gomez MD, PhD [address] [place] [address] [email or web address] 01/20/23 documented as of this encounter Additional Source Comments The information contained in this document represents components of the legal health record. It is not the complete legal health record.[facility]
--- OUTSIDE RECORDS SUMMARY | 2025-03-05 12:22 | XMS_ITS | Encounter Summary ---
Author Organization [facility] Address [address] [place] [address] [place] [address] Phone Care Team Providers Care Dolly Driver Name Role Phone Jayshree Mishra MD Primary Care Provider [phone] Unknown, Unknown Primary Care Provider Jayshree Caldera MD Primary Care Provider [phone] Gonzalo Gomez MD, PhD Unavailable [phone] Encounter Details Date Type Department Care Team (Latest Contact Info) Description 08/29/2018 Ancillary Orders [facility] [place] IGNACIO [address] [facility], 4th Floor, [address] [place] [address] Hamida Pimentel MD [address] [facility] F[address] 4 [place] [phone] [email or web address] Nuchal translucency of fetus on ultrasound Social [...] [facility] [address] 8th [place] [address] Alok Smyth MD [address] [facility] CPZ [address] [place] [address] [email or web address] documented as of this encounter Visit Diagnoses Diagnosis Nuchal translucency of fetus on ultrasound documented in this encounter Additional Health Concerns Infection Onset Date Last Indicated Resolved Time Clearance-CoV Comment:Auto-resolved with negative COVID-19 PCR 08/31/2019 08/31/2019 08/31/2019 2:27 PM E DT CoV-Risk Comment:See [facility] note 09/1509/14/2019 09/14/2019 020 9:22 AM EDT documented as of this encounter Care Teams Dolly Driver Relationship Specialty Start Date End Date Jayshree Mishra MD [address] [place] [address] PCP - General Internal Medicine 07/18/18 04/19/19 Unknown, Unknown, [address] [place] [address] PCP - General 04/20/19 06/26/19 Jayshree Mishra MD [address] [place] [address] PCP - General Internal Medicine 06/27/19 Gonzalo Gomez MD, PhD [address] [place] [address] [address] [place] [address] [email or web address] Neurology 01/20/23 documented as of this encounter Additional Source Comments The information contained in this document represents components of the legal health record. It is not the complete legal health record.[facility]
--- OUTSIDE RECORDS SUMMARY | 2025-03-05 12:22 | XMS_ITS | Encounter Summary ---
Author Organization [facility] Address [address] [place] [address] Phone Care Team Providers Care Coater Name Role Phone Jayshree Mishra MD Primary Care Provider [phone] Gonzalo Gomez MD, PhD Unavailable [phone] Encounter Details Date Type Department Care Team (Late st Contact Info) Description 11/01/2024 Transcribe Orders [facility] for [facility], Radio Flouroscopy [address] [place] [address] Trang Schwartz [address] [place] [phone] Social History Tobacco Use Types Packs/Day [...] Description 03/21/2025 4:30 PM EST Office Visit [facility] Neuromuscular Service [address] 8th [place] [address] Alok Smyth MD 55 [facility] [address] [place] [address] [email or web address] documented as of this encounter Visit Diagnoses Not on filedocumented in this encounter Care Teams Coater Relationship Specialty Start Date End Date Jayshree Mishra MD [address] [place] [address] PCP - General Internal Medicine 06/27/19 Gonzalo Gomez MD, PhD 55 [facility] [place] [address] [email or web address] Neurology 01/20/23 documented as of this encounter Additional Source Comments The information contained in this document represents components of the legal health record. It is not the complete legal health record.[facility]
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
--- OUTSIDE RECORDS SUMMARY | 2025-03-05 12:22 | XMS_ITS | Encounter Summary ---
Author Organization [facility] Address [address] [place] [address] [place] [address] Phone Care Team Providers Care Delinquent Notice Machine Operator Name Role Phone Jayshree Mishra MD Primary Care Provider [phone] Unknown, Unknown Primary Care Provider Jayshree Caldera MD Primary Care Provider [phone] Gonzalo Gomez MD, PhD Unavailable [phone] Reason for Referral * Consultation (Routine) - Closed Specialty Diagnoses / Procedures Referred By Roseann giles Referred To Contact System, Provider Not In, PhD Partners [address] [address] Ob[facility]. Referral ID Status Reason Start Date Expiration Date Visits Re quested Visits Authorized [id number] Closed 08/09/2018 08/10/2019 1 1 Encounter Details Date Type Department Care Team (Late st Contact Info) Description 08/09/2018 Transcribe Orders [facility] Rick IGNACIO [address] [facility], 4th Floor, [address] [place] [address] Hamida Pimentel MD 55 [facility] F[address] [place] [phone] [email or web address] Social History Tobacco Use Types [...] 4:30 PM EST Office Visit [facility] Neuromuscular Service [address] [place] [address] Alok Smyth MD 55 [facility] [address] [place] [address] [email or web address] Scheduled Referrals Name Type Priority Associated Diagnoses Order Schedule Ambulatory referral to [facility] OB Outpatient Referral Routine Ordered: 08/09/2018 documented as of this encounter Visit Diagnoses Not on filedocumented in this encounter Additional Health Concerns Infection Onset Date Last Indicated Resolved Time Clearance-CoV Comment:Auto-resolved with negative COVID-19 PCR 08/31/2019 08/31/2019 08/31/2019 2:27 PM E DT CoV-Risk Comment:See [facility] note 09/1509/14/2019 09/14/2019 020 9:22 AM EDT documented as of this encounter Care Teams Delinquent Notice Machine Operator Relationship Specialty Start Date End Date Jayshree Mishra MD [address] [place] [address] PCP - General Internal Medicine 07/18/18 04/19/19 Unknown, Unknown, [address] [place] [address] PCP - General 04/20/19 06/26/19 Jayshree Mishra MD [address] [place] [address] PCP - General Internal Medicine 06/27/19 Gonzalo Gomez MD, PhD [address] [facility] [place] [address] Neurology 01/20/23 documented as of this encounter Additional Source Comments The information contained in this document represents components of the legal health record. It is not the complete legal health record.[facility]
--- OUTSIDE RECORDS SUMMARY | 2025-03-05 12:22 | XMS_ITS | Encounter Summary ---
Author Organization [facility] Address [address] [place] [address] Phone Care Team Providers Care Organic Lab Worker Name Role Phone Jayshree Mishra MD Primary Care Provider Gonzalo Gomez MD, PhD Unavailable [phone] Encounter Details Date Type Department Care Team (Late st Contact Info) Description 09/12/2024 Procedure Pass [facility] - Ultrasound [address] [place] [address] Social History Tobacco Use Types Packs/Day Years [...] Upcoming Encounters Date Type Department Care Team ([facility] st Contact Info) Description 03/21/2025 4:30 PM EST Office Visit [facility] Neu[facility] [address] [facility], 8th [place] [address] Alok Smyth MD [address] [place] [address] 820 [place] [address] [email or web address] documented as of this encounter Visit Diagnoses Not on filedocumented in this encounter Care Teams Organic Lab Worker Relationship Specialty Start Date End Date Jayshree Mishra MD [address] [place] [address] PCP - General Internal Medicine 06/27/19 Gonzalo Gomez MD, PhD [address] [place] [address] [email or web address] Neurology 01/20/23 documented as of this encounter Additional Source Comments The information contained in this document represents components of the legal health record. It is not the complete legal health record.[facility]
--- NOTE | 2025-03-05 13:04 | PM.IMHP ---
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 She follows with [facility] pulmonology. She denied recent illness, recent travel, or fevers. She has a 5 year old who has a runny nose. In the ED CXR showing possible consolidation. No fever or Leukocytosis noted. She was given Rocephin and azithromycin and one liter of IV fluids. 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 Asthma Hemoptysis Bronchopneumonia Dysphagia GERD (gastroesophageal reflux disease) Hypoxia Tachycardia Chronic respiratory failure Chest pain Pneumonia delivery due to maternal disorder, delivered, curr hospitaliz Tracheostomy in place Surgical History H/O tracheostomy H/O colonoscopy History of laryngoscopy History of bronchoscopy Previous section Social History Household Members: Spouse and Children Housing: House Are you a primary healthcare economics consultant to a significant other at home: No Do you presently have visiting nurse or other home services: No Alcohol intake: never Comment: lower extremity braces, bilateral Patient Tobacco Use Status: Never used Tobacco Second Hand Smoke Exposure: No Have you been hit, kicked, punched, or otherwise hurt by someone within the past year? If so, by whom?: No Do you feel safe in your current relationship?: Yes Is there a partner from a previous relationship who is making you feel unsafe now?: No Are you made to feel afraid or neglected: No Advance Directives: No (Pt reports she has at home) Advance Directives Information Provided: No Advance Directives on File: No Advance Directives Date on File: 11/18/24 Do you have a plan to hurt others: No Plan Recently lost weight without trying: No How much weight loss: Not applicable Eating poorly because of decreased appetite: No Nutrition screen score: 0 Nutrition Risks: No Nutritional Risk Patient : No : No Poor oral hygiene: No service: No Current occupational status: disabled Current occupation: right hand dominant Meds Allergies Allergy/AdvReac Type Severity Reaction Status Date / Time prednisone (PREDNISONE) Allergy Severe Difficulty Verified 03/05/25 09:59 Breathing Active Medications: Current Medications Acetaminophen (Acetaminophen 325 Mg Tablet) 650 mg PO Q6H PRN PRN Reason: Pain, Mild 1-3,fever,headache Calcium Carbonate (Calcium Carbonate 750 Mg Tab.Chew) 750 mg PO Q4H PRN PRN Reason: Heartburn Enoxaparin Sodium (Enoxaparin Sodium 40 Mg/0.4 Ml Syringe) 40 mg SUBCUT Q24H [facility] Guaifenesin/Dextromethorphan (Guaifenesin Dm 100/10/5 Ml 5 Ml Syrup) 5 ml PO Q4H PRN PRN Reason: Cough Ceftriaxone Sodium 1 gm/ (Sodium Chloride) 50 mls @ 100 mls/hr IV Q24H RAJNI Azithromycin 500 mg/ Sodium (Chloride) 250 mls @ 125 mls/hr IV Q24H [facility] Magnesium Hydroxide (Milk Of Magnesia 30 Ml Oral.Susp) 30 ml PO DAILY PRN PRN Reason: Constipation Melatonin (Melatonin 3 Mg Tablet) 6 mg PO BEDTIME PRN PRN Reason: Insomnia Ondansetron HCl (Ondansetron Hcl 4 Mg/2 Ml Vial) 4 mg IVPUSH Q8H PRN PRN Reason: Nausea and Vomiting Sodium Chloride (0.9 % Sodium Chloride Flush 3 Ml Syringe) 3 ml IVFLUSH QSHIFT [facility] Home Medications ?Medication ?Instructions ?Recorded ?Confirmed ?Last Taken ?Type Oxygen Home Use 04/04/21 05/20/21 Unknown History nebulizers 11/11/22 Unknown History diclofenac sodium 1 % topical gel 2 g topical QID PRN Pain 03/05/25 03/05/25 Unknown History lidocaine 4 % topical patch 1 - 2 patch topical DAILY PRN Pain 03/05/25 03/05/25 Unknown History (Salonpas (lidocaine)) tirzepatide (weight loss) 5 mg/0.5 5 mg subcut WE 03/05/25 03/05/25 02/28/25 History mL subcutaneous pen injector (Zepbound) Physical Exam Vital Signs and Narrative: Vital Signs: Last Vital Signs Temp 98.5 F 03/05/25 10:51 Pulse 97 03/05/25 10:51 Resp 17 03/05/25 10:51 BP 94/57 L 03/05/25 10:51 Pulse Ox 96 03/05/25 10:51 O2 Del Method Room Air 03/05/25 10:51 BMI result Body Mass Index 38.6 Appearing in no acute distress head is normocephalic atraumatic eyes pupils are PERRLA sclera is anicteric mouth throat mucous membranes are intact and moist neck is supple no lymphadenopathy, no JVD noted, trach site noted lung sounds are clear to auscultation heart regular rate rhythm, clear S1, S2 positive bowel sounds, abdomen is soft, nontender neuro patient is alert x3, no focal deficits Results Labs 03/06/25 06:16 03/06/25 06:18 Labs: Laboratory Results - last 24 hr 03/05/25 03/05/25 03/05/25 10:06 10:07 11:19 MCV 86.3 MCH 27.1 MCHC 31.4 RDW 14.2 Plt Count 183 MPV 9.8 Immature Gran % (Auto) 0.2 Neut % (Auto) 78.5 H Lymph % (Auto) 13.4 L Monroe % (Auto) 7.1 Eos % (Auto) 0.4 Baso % (Auto) 0.4 Lymph # (Auto) 1.1 L Monroe # (Auto) 0.6 Eos # (Auto) 0.0 Baso # (Auto) 0.0 Abs Immat Gran (auto) 0.02 Absolute Neuts (auto) 6.3 Absolute Nucleated RBC 0.000 Nucleated RBC % (auto) 0.0 ESR 35 H Anion Gap 10 L Estim Creat Clear Calc 206.7 Estimated GFR > 60 Random Glucose 93 Lactic Acid 0.7 Calcium 9.2 Total Bilirubin 0.4 AST 27 ALT 17 Alkaline Phosphatase 54 C-Reactive Protein 4.51 H Total Protein 7.3 Albumin 4.3 COVID-19 (ALICE) COVID-19 Clin Com Influenza Type A (CAROLYNN) Negative Influenza Type B (CAROLYNN) Negative Influenza A & B Note See Note 03/05/25 11:20 MCV MCH MCHC RDW Plt Count MPV Immature Gran % (Auto) Neut % (Auto) Lymph % (Auto) Monroe % (Auto) Eos % (Auto) Baso % (Auto) Lymph # (Auto) Monroe # (Auto) Eos # (Auto) Baso # (Auto) Abs Immat Gran (auto) Absolute Neuts (auto) Absolute Nucleated RBC Nucleated RBC % (auto) ESR Anion Gap Estim Creat Clear Calc Estimated GFR Random Glucose Lactic Acid Calcium Total Bilirubin AST ALT Alkaline Phosphatase C-Reactive Protein Total Protein Albumin COVID-19 (ALICE) Negative COVID-19 Clin Com See Note Influenza Type A (CAROLYNN) Influenza Type B (CAROLYNN) Influenza A & B Note Imaging Radiologist's Impressions: Impressions Chest X-Ray 03/05/25 10:55 IMPRESSION: Atelectasis versus acute airspace disease, right middle lung lobe and lingula. Electronically signed by: See Mendoza MD 03/05/2025 11:05 AM [facility] [employer] Assessment and Plan (1) Viral syndrome: Status: Acute Plan 34 year old women admitted with pneumonia with trach CAP Rocephin and azithromycin Robitussin Follow blood cx hx of MRSA, check MRSA swab, check RPP pulm consultation Chronic respiratory failure on oxygen at night chronic trach Keep clead and dry Obesity class II. BMI 38.6 Discussed importance of weight management as this may be contributing to worsening of other comorbidities DVT prophylaxis with lovenox Full code Quality Stroke Does the patient have a stroke diagnosis?: No VTE Prior VTE?: No VTE Risk Level:: Medical - moderate - high VTE Device Contraindication: Treatment Not Indicated VTE Drug Contraindication: N/A - Med Ordered
[2025-03-05] MEDS: 0.9 % Sodium Chloride Flush 3 ML SYRINGE IVFLUSH (16:44)
--- NOTE | 2025-03-05 19:45 | PC.NURSE ---
Assumed care of pt at 1900. Pt A&Ox3. Pt has chronic trach, breathing unlabored, on room air. Skin p/w/d. Denies pain. NSR on tele. Call sapp within reach.
[2025-03-06] VITALS: BP 91/50; PULSE 106; RESP 18; TEMP 36.2; O2SAT 98
[2025-03-06 00:27] VITALS: BMI 39.0
[2025-03-06] MEDS: 0.9 % Sodium Chloride Flush 3 ML SYRINGE IVFLUSH ×2 (00:30→07:34)
[2025-03-06 03:11] VITALS: BP 102/55; PULSE 72; RESP 18; TEMP 36.4; O2SAT 96
--- NOTE | 2025-03-06 07:11 | PC.ADMIT ---
Pt arrived from ED via stretcher at approx 0000. Pt A&Ox4. Moves all extremities with ease. Able to follow commands. Pt has a trach. RT placed extra trach at bedside in case of emergency. Pt denies difficulty breathing. Call sapp in reach. Bed in lowest position with brakes locked. Pt ambulating in room independently. Plan of care continues.
[2025-03-06 07:24] LABS: Hematocrit 33.0 % (37.0-47.0); Hemoglobin 10.4 g/dl (12.0-16.0); Mean Corpuscular HGB Conc 31.5 g/dl (31.0-35.0); Mean Corpuscular Hemoglobin 27.4 pg (27.0-33.0); Mean Corpuscular Volume 87.1 fL (80.0-98.0); NRBC Abs Auto 0.000 X10*3/uL (0.0-0.012); NRBC Pct Auto 0.0 /100WBC (0.0-0.2); Platelet Count 166 X10*3/uL (160-400); Red Blood Count 3.79 X10*6/uL (4.20-5.50); White Blood Count 5.5 X10*3/uL (4.8-10.8)
[2025-03-06 07:25] LABS: Anion Gap 8 (12-20); Blood Urea Nitrogen 11 mg/dL (9-16); Calcium 8.7 mg/dL (8.4-10.2); Carbon Dioxide 27 mmol/L (22-29); Chloride 109 mmol/L (96-108); Creatinine Clr Calc Pharmacy 239.7; Estimated Glomerular Filt Rate > 60; Potassium 3.7 mmol/L (3.3-5.1); Sodium 140 mmol/L (135-145)
[2025-03-06 07:31] VITALS: BP 114/62; PULSE 92; RESP 20; TEMP 36.3; O2SAT 98
[2025-03-06 08:10] VITALS: PULSE 93; RESP 18; O2SAT 100
--- NOTE | 2025-03-06 08:13 | P.PNIM_ITS ---
Subjective Subjective Date of Service: 03/06/25 Interval History: pneumonia Review of Systems Review of Systems: Yes all other systems are reviewed and are negative Physical Exam 2 Vital Signs: Vital Signs: Last Vital Signs Temp 97.4 F 03/06/25 07:31 Pulse 93 03/06/25 08:10 Resp 18 03/06/25 08:10 BP 114/62 03/06/25 07:31 Pulse Ox 98 03/06/25 07:31 O2 Del Method Trach Collar 03/06/25 07:31 O2 Flow Rate 98 03/06/25 07:31 BMI result Body Mass Index 39.0 Objective Data Active Medications Acetaminophen (Acetaminophen 325 Mg Tablet) 650 mg PO Q6H PRN PRN Reason: Pain, Mild 1-3,fever,headache Last Admin: 03/06/25 07:31 Dose: 650 mg Documented By: PAYTON Budesonide (Budesonide 0.5 Mg/2 Ml Ampul.Neb) 0.5 mg INHALE RBID [facility] Last Admin: 03/06/25 08:04 Dose: 0.5 mg Documented By: SYLVIE Calcium Carbonate (Calcium Carbonate 750 Mg Tab.Chew) 750 mg PO Q4H PRN PRN Reason: Heartburn Enoxaparin Sodium (Enoxaparin Sodium 40 Mg/0.4 Ml Syringe) 40 mg SUBCUT Q24H [facility] Last Admin: 03/05/25 13:52 Dose: 40 mg Documented By: FABIAN Guaifenesin/Dextromethorphan (Guaifenesin Dm 100/10/5 Ml 5 Ml Syrup) 5 ml PO Q4H PRN PRN Reason: Cough Ceftriaxone Sodium 1 gm/ (Sodium Chloride) 50 mls @ 100 mls/hr IV Q24H [facility] Last Admin: 03/05/25 14:23 Dose: Not Given Documented By: FABIAN Non-Admin Reason: Duplicate Order Azithromycin 500 mg/ Sodium (Chloride) 250 mls @ 125 mls/hr IV Q24H [facility] Last Infusion: 03/05/25 15:58 Dose: Infused Documented By: RENA Levalbuterol HCl (Levalbuterol Hcl 1.25 Mg/3 Ml Vial.Neb) 1.25 mg INHALE RBID [facility] Last Admin: 03/06/25 08:04 Dose: 1.25 mg Documented By: SYLVIE Magnesium Hydroxide (Milk Of Magnesia 30 Ml Oral.Susp) 30 ml PO DAILY PRN PRN Reason: Constipation Melatonin (Melatonin 3 Mg Tablet) 6 mg PO BEDTIME PRN PRN Reason: Insomnia Ondansetron HCl (Ondansetron Hcl 4 Mg/2 Ml Vial) 4 mg IVPUSH Q8H PRN PRN Reason: Nausea and Vomiting Sodium Chloride (0.9 % Sodium Chloride Flush 3 Ml Syringe) 3 ml IVFLUSH QSHIFT [facility] Last Admin: 03/06/25 07:34 Dose: 3 ml Documented By: PHANLYM Labs 03/06/25 06:16 03/06/25 06:18 Labs: Laboratory Results - last 24 hr 03/05/25 03/05/25 03/05/25 10:06 10:07 11:19 MCV 86.3 MCH 27.1 MCHC 31.4 RDW 14.2 Plt Count 183 MPV 9.8 Immature Gran % (Auto) 0.2 Neut % (Auto) 78.5 H Lymph % (Auto) 13.4 L [place] % (Auto) 7.1 Eos % (Auto) 0.4 Baso % (Auto) 0.4 Lymph # (Auto) 1.1 L [place] # (Auto) 0.6 Eos # (Auto) 0.0 Baso # (Auto) 0.0 Abs Immat Gran (auto) 0.02 Absolute Neuts (auto) 6.3 Absolute Nucleated RBC 0.000 Nucleated RBC % (auto) 0.0 ESR 35 H Anion Gap 10 L Estim Creat Clear Calc 206.7 Estimated GFR > 60 Random Glucose 93 Lactic Acid 0.7 Calcium 9.2 Total Bilirubin 0.4 AST 27 ALT 17 Alkaline Phosphatase 54 C-Reactive Protein 4.51 H Total Protein 7.3 Albumin 4.3 COVID-19 (ALICE) COVID-19 Clin Com Influenza Type A (CAROLYNN) Negative Influenza Type B (CAROLYNN) Negative Influenza A & B Note See Note 03/05/25 03/06/25 03/06/25 11:20 06:16 06:18 MCV 87.1 MCH 27.4 MCHC 31.5 RDW 14.2 Plt Count 166 MPV 10.7 Immature Gran % (Auto) Neut % (Auto) Lymph % (Auto) [place] % (Auto) Eos % (Auto) Baso % (Auto) Lymph # (Auto) [place] # (Auto) Eos # (Auto) Baso # (Auto) Abs Immat Gran (auto) Absolute Neuts (auto) Absolute Nucleated RBC 0.000 Nucleated RBC % (auto) 0.0 ESR Anion Gap 8 L Estim Creat Clear Calc 239.7 Estimated GFR > 60 Random Glucose 99 Lactic Acid Calcium 8.7 Total Bilirubin AST ALT Alkaline Phosphatase C-Reactive Protein Total Protein Albumin COVID-19 (ALICE) Negative COVID-19 Clin Com See Note Influenza Type A (CAROLYNN) Influenza Type B (CAROLYNN) Influenza A & B Note Microbiology Microbiology Results: Microbiology 03/05/25 11:19 Gram Stain - Final Trachea Assessment and Plan Plan 34 year old women admitted with pneumonia with trach CAP Rocephin and azithromycin Robitussin Follow blood cx hx of MRSA, check MRSA swab, check RPP pulm consultation Chronic respiratory failure on oxygen at night chronic trach Keep clead and dry Obesity class II. BMI 38.6 Discussed importance of weight management as this may be contributing to worsening of other comorbidities DVT prophylaxis with lovenox Full code Quality Stroke Does the patient have a stroke diagnosis?: No VTE Prior VTE?: No VTE Risk Level:: Medical - moderate - high VTE Device Contraindication: Treatment Not Indicated VTE Drug Contraindication: N/A - Med Ordered
[2025-03-06 09:43] LABS: MRSA Nasal PCR NEGATIVE (Negative); SA Nasal PCR NEGATIVE (Negative)
[2025-03-06 09:44] LABS: Chlamydia pneumoniae PCR Not Detected (Not Detect.); Coronavirus 229E PCR Not Detected (Not Detect.); Coronavirus HKU1 PCR Not Detected (Not Detect.); Coronavirus NL63 PCR Not Detected (Not Detect.); Coronavirus OC43 PCR Not Detected (Not Detect.); RSV PCR Not Detected (Not Detect.); Rhino/Enterovirus PCR Not Detected (Not Detect.)
[2025-03-06 11:08] LABS: Influenza A H1 PCR Not Detected (Not Detect.); Influenza A H1-2009 PCR Not Detected (Not Detect.); Influenza A H3 PCR Not Detected (Not Detect.); SARS-CoV-2 PCR Not Detected (Not Detect.)
[2025-03-06 11:27] VITALS: BP 109/68; PULSE 96; RESP 20; TEMP 36.8; O2SAT 98
--- NOTE | 2025-03-06 12:23 | MHC.CM.PN ---
Addendum entered by Sabi Bowen 03/06/25 13:55: NEW HCP COMPLETED WITH PATIENT, NOW ON FILE. Original Note: IMM GIVEN 03/06. THIS CM MET WITH PATIENT, SHE STATES SHE LIVES AT HOME WITH HER FIANCE AND DAUGHTER. PATIENT HAS HOME O2 AND TRACH SUPPLIES THROUGH [employer], AND ALSO HAS A WALKER. SHE STATES SHE HAS HOMEMAKING SERVICES THROUGH [facility]. NO HCP ON FILE, FORM GIVEN TO PATIENT PER HER REQUEST, WILL PLAN TO COMPLETE IT TODAY. PATIENT WILL ARRANGE HER OWN TRANSPORT HOME AT DISCHARGE. PCP: DR. KAE DE LOS SANTOS
--- NOTE | 2025-03-06 13:02 | P.CONPL_ITS ---
History of Present Illness History of Present Illness Consult date: 03/06/25 Chief complaint: Pneumonia Narrative: 34-year-old lady with underlying Yjhovdu-Ytfdf-Uqngd muscular atrophy and vocal cord paralysis status post tracheostomy, patient of Dr. Irwin, admitted on 03/05/2025 with some dyspnea and cough. Patient empirically treated for community-acquired pneumonia and asthma exacerbation with significant improvement. Review of Systems 2 Constitutional: Constitutional: Denies daytime sleepiness, Denies excessive sweating, Denies fatigue, Denies fever(s), Denies lethargy, Denies malaise, Denies night sweats, Denies snoring and Denies weight loss Eyes: Eyes: Denies blurry vision and Denies itchy eyes ENT: Denies nasal congestion, Denies post nasal drip, Denies sinus pain, Denies sinus pressure and Denies other ( Thrush) Cardiovascular: Cardiovascular: Denies chest pain, Denies pedal edema, Denies dyspnea, Reports dyspnea on exertion, Denies orthopnea and Denies paroxysmal nocturnal dyspnea Respiratory: Respiratory: Reports cough, Denies hemoptysis, Denies excessive phlegm production, Denies dyspnea, Reports dyspnea on exertion, Denies snoring and Denies wheezing Gastrointestinal: Gastrointestinal: Denies abdominal pain and Denies heartburn Musculoskeletal: Musculoskeletal: Denies myalgias, Denies arthralgias and Denies joint swelling Integumentary/Breasts: Skin/Breast: Denies rash Neurologic: Denies memory loss and Denies seizure-like activity Psychiatric: Psychiatric: Denies abnormal sleep pattern, Denies anxiety and Denies memory loss Endocrine: Endocrine: Denies excessive sweating, Denies fatigue and Denies heat intolerance Hematologic/Lymphatic: Hematologic/Lymphatic: Denies easy bruising Allergic/Immunologic: Allergic/Immunologic: Denies itchy eyes, Denies seasonal rhinorrhea and Denies wheezing PMFSH Past Medical History Medical History (Updated 03/06/25 @ 13:55 by Minh Mukherjee MD) 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 Asthma Hemoptysis Bronchopneumonia Dysphagia GERD (gastroesophageal reflux disease) Hypoxia Tachycardia Chronic respiratory failure Chest pain Pneumonia delivery due to maternal disorder, delivered, curr hospitaliz Tracheostomy in place Surgical History Surgical History H/O tracheostomy H/O colonoscopy History of laryngoscopy History of bronchoscopy Previous section Social History Social History Household Members: Spouse and Children Housing: House Are you a primary manager care to a significant other at home: No Do you presently have visiting nurse or other home services: No Alcohol intake: never Comment: lower extremity braces, bilateral Patient Tobacco Use Status: Never used Tobacco Second Hand Smoke Exposure: No Currently Displaying Signs/Symptoms of Drug Intoxication Withdrawal: No Have you been hit, kicked, punched, or otherwise hurt by someone within the past year? If so, by whom?: No Do you feel safe in your current relationship?: Yes Is there a partner from a previous relationship who is making you feel unsafe now?: No Are you made to feel afraid or neglected: No Advance Directives: No (Pt reports she has at home) Advance Directives Information Provided: No Advance Directives on File: No Advance Directives Date on File: 11/18/24 Do you have a plan to hurt others: No Plan Recently lost weight without trying: No How much weight loss: Not applicable Eating poorly because of decreased appetite: No Nutrition screen score: 0 Nutrition Risks: No Nutritional Risk Patient : No : No Poor oral hygiene: No service: No Current occupational status: disabled Current occupation: right hand dominant Meds Allergies Allergy/AdvReac Type Severity Reaction Status Date / Time prednisone (PREDNISONE) Allergy Severe Difficulty Verified 03/05/25 09:59 Breathing Active Medications: Current Medications Acetaminophen (Acetaminophen 325 Mg Tablet) 650 mg PO Q6H PRN PRN Reason: Pain, Mild 1-3,fever,headache Last Admin: 03/06/25 07:31 Dose: 650 mg Budesonide (Budesonide 0.5 Mg/2 Ml Ampul.Neb) 0.5 mg INHALE RBID [facility] Last Admin: 03/06/25 08:04 Dose: 0.5 mg Calcium Carbonate (Calcium Carbonate 750 Mg Tab.Chew) 750 mg PO Q4H PRN PRN Reason: Heartburn Enoxaparin Sodium (Enoxaparin Sodium 40 Mg/0.4 Ml Syringe) 40 mg SUBCUT Q24H [facility] Last Admin: 03/05/25 13:52 Dose: 40 mg Guaifenesin/Dextromethorphan (Guaifenesin Dm 100/10/5 Ml 5 Ml Syrup) 5 ml PO Q4H PRN PRN Reason: Cough Ceftriaxone Sodium 1 gm/ (Sodium Chloride) 50 mls @ 100 mls/hr IV Q24H [facility] Last Admin: 03/05/25 14:23 Dose: Not Given Azithromycin 500 mg/ Sodium (Chloride) 250 mls @ 125 mls/hr IV Q24H [facility] Last Infusion: 03/05/25 15:58 Dose: Infused Levalbuterol HCl (Levalbuterol Hcl 1.25 Mg/3 Ml Vial.Neb) 1.25 mg INHALE RBID [facility] Last Admin: 03/06/25 08:04 Dose: 1.25 mg Magnesium Hydroxide (Milk Of Magnesia 30 Ml Oral.Susp) 30 ml PO DAILY PRN PRN Reason: Constipation Melatonin (Melatonin 3 Mg Tablet) 6 mg PO BEDTIME PRN PRN Reason: Insomnia Ondansetron HCl (Ondansetron Hcl 4 Mg/2 Ml Vial) 4 mg IVPUSH Q8H PRN PRN Reason: Nausea and Vomiting Sodium Chloride (0.9 % Sodium Chloride Flush 3 Ml Syringe) 3 ml IVFLUSH QSHIFT [facility] Last Admin: 03/06/25 07:34 Dose: 3 ml Home Medications ?Medication ?Instructions ?Recorded ?Confirmed ?Last Taken ?Type Oxygen Home Use 04/04/21 05/20/21 Unknown H istory nebulizers 11/11/22 Unknown History diclofenac sodium 1 % topical gel 2 g topical QID PRN Pain 03/05/25 03/05/25 Unknown History lidocaine 4 % topical patch 1 - 2 patch topical DAILY PRN Pain 03/05/25 03/05/25 Unknown History (Salonpas (lidocaine)) tirzepatide (weight loss) 5 mg/0.5 5 mg subcut WE 07/2503/05/25 02/28/25 History mL subcutaneous pen injector (Zepbound) Physical Exam 2 Vital Signs: Vital Signs: Last Vital Signs Temp 98.3 F 03/06/25 11:27 Pulse 96 03/06/25 11:27 Resp 20 03/06/25 11:27 BP 109/68 03/06/25 11:27 Pulse Ox 98 03/06/25 11:27 O2 Del Method Room Air 03/06/25 11:27 O2 Flow Rate 98 03/06/25 07:31 BMI result Body Mass Index 39.0 Const: General: no acute distress and alert Nutritional Appearance: not obese Orientation/consciousness: Other orientation findings ( oriented) HEENT: Head: Yes atraumatic Eyes: General: appearance normal, both eyes and all related structures S clerae: sclerae normal EOM: EOMs intact bilaterally Neck: Neck: Yes supple and Yes tracheostomy present (To room air) L ymphatic: no lymphadenopathy noted Resp: Effort & Inspection: normal respiratory effort and no use of accessory muscles Auscultation: clear to auscultation bilaterally Cardio: Rate: regular rate Rhythm: regular rhythm Heart sounds: no gallops, no murmurs and no rubs Skin: General skin exam: other ( warm) Extrem: General: No clubbing, No cyanosis and No edema Results Laboratory Findings 03/06/25 06:16 03/06/25 06:18 Abnormal lab findings: Abnormal Labs 03/05/25 03/05/25 03/06/25 10:06 10:07 06:16 RBC 3.79 L Hgb 10.4 L Hct 33.0 L Neut % (Auto) 78.5 H Lymph % (Auto) 13.4 L Lymph # (Auto) 1.1 L ESR 35 H Chloride 109 H Anion Gap 10 L Creatinine 0.45 L C-Reactive Protein 4.51 H 03/06/25 06:18 RBC Hgb Hct Neut % (Auto) Lymph % (Auto) Lymph # (Auto) ESR Chloride 109 H Anion Gap 8 L Creatinine 0.39 L C-Reactive Protein Microbiology: Microbiology 03/05/25 11:19 Trachea Gram Stain - Final 03/05/25 11:19 Trachea Routine Culture - Preliminary Culture in progress. Assessment and Plan (1) Tracheostomy dependence: Status: Acute (2) Vocal cord paralysis: Status: Acute (3) Upper respiratory infection: Status: Acute Plan Impression: 34-year-old lady admitted with underlying tracheostomy dependence admitted with dyspnea and upper respiratory symptoms, likely secondary to viral syndrome, now essentially close to baseline. Recommendation: Agree with continuation of home regimen and empiric azithromycin. Procedures Date of Service Date of Service: 03/06/25
[2025-03-06] MEDS: Milk of Magnesia 30 ML ORAL.SUSP PO (13:52)
[2025-03-06 15:09] VITALS: BP 98/47; PULSE 88; RESP 20; TEMP 36.4; O2SAT 96
--- NOTE | 2025-03-06 16:33 | P.DS_ITS ---
DS: Providers Provider Date of Service: 03/06/25 Date of admission: 03/06/25 09:31 Date of discharge: 03/06/25 Primary care physician: Jayshree Mishra MD Consults: 03/05/25 13:53 Consult to Pulmonology Routine Consulting Provider: [facility] [place] Pulmonology Services Reason for consultation: pneumonia,trach Attending physician on discharge: Shahnaz Hobson Discharging clinician: Shahnaz Hobson DS: Diagnosis Discharge Diagnosis (1) Tracheostomy dependence: Status: Acute (2) Vocal cord paralysis: Status: Acute (3) Upper respiratory infection: Status: Acute DS: Summary Hospital Course Hospital Course: HPI:34 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 She follows with [facility] [place] pulmonology. She denied recent illness, recent travel, or fevers. She has a 5 year old who has a runny nose. In the ED CXR showing possible consolidation. No fever or Leukocytosis noted. She was given Rocephin and azithromycin and one liter of IV fluids. Hospital course: 34 year old women admitted with pneumonia with trach : Patient was admitted to the hospital for possible upper respiratory infection: Viral versus mild pneumonia: Chest x-ray:Atelectasis versus acute airspace disease, right middle lung lobe and lingula.blood culture sent : Patient seems to be improved with the above supportive care,Blood culture negative at 24 hours, sputum culture: Mixed neftali ( in progress)- seen by Pulmonary-recommended to add p.o. antibiotic upon discharge. ceftin and azithromycin for 6 days ,repeat cxr in 3-4 weeks to see resolution on ?pneumonia . follow up with pcp and pulm outpatient. Assessment and plan as above: Complete antibiotic course. Repeat chest imaging in 3-4 weeks. Follow up with Pulmonary outpatient. Time Attestation Total time managing care of this patient today: 45 mintues. Discharge Coordination Time (in mins): 45 min Quality: Safe Use of Opioids Does Pt have an Active Cancer Diagnosis on the Problem List?: No Quality: Stroke Does the patient have a stroke diagnosis?: No Physical Exam Exam: Exam: Appearance: Alert.? Oriented X3.? cvs: rrr, [id number] , no murmur res: has trach,clear to auscultation ,no rhonchii or wheezing abd: no rebound or guarding ,nt, bs present. ext pulses present , no cyanosis . neuro: axo3 , nonfocal. Vital Signs: Vital Signs: Last Vital Signs Temp 97.6 F 03/06/25 15:09 Pulse 88 03/06/25 15:09 Resp 20 03/06/25 15:09 BP 98/47 L 03/06/25 15:09 Pulse Ox 96 03/06/25 15:09 O2 Del Method Room Air 03/06/25 15:09 O2 Flow Rate 98 03/06/25 07:31 BMI result Body Mass Index 39.0 DS: Data Data Completed and Pending Completed studies during hospitalization [Text1]: Procedures Drainage of Right Lower Lung Lobe, Via Natural or Artificial Opening Endoscopic (11/18/24) Respiratory Ventilation, 24-96 Consecutive Hours (03/14/20) Labs on day of discharge: Laboratory Results - last 24 hr 03/05/25 03/05/25 03/06/25 16:47 16:48 06:16 WBC 5.5 RBC 3.79 L Hgb 10.4 L Hct 33.0 L MCV 87.1 MCH 27.4 MCHC 31.5 RDW 14.2 Plt Count 166 MPV 10.7 Absolute Nucleated RBC 0.000 Nucleated RBC % (auto) 0.0 Sodium Potassium Chloride Carbon Dioxide Anion Gap BUN Creatinine Estim Creat Clear Calc Estimated GFR Random Glucose Calcium Nasal Screen MRSA (PCR) NEGATIVE Nasal S. aureus Screen NEGATIVE Nasal MRSA/S.aureus Interp SEE NOTE Respiratory Panel Soares See Note Adenovirus (Rapid PCR) Not Detected B.pert (TEM-PCR) Not Detected B.parapertussis DNA PCR Not Detected C. pneumoniae DNA (PCR) Not Detected Coronavirus OC43 (PCR) Not Detected Coronavirus HKU1 (PCR) Not Detected Coronavirus 229E (PCR) Not Detected Coronavirus NL63 (PCR) Not Detected Human Metapneumovir PCR Not Detected Influenza A (RT-PCR) Not Detected Influenza A (H1) PCR Not Detected Influ A (H1/09) PCR Not Detected Influenza A (H3) PCR Not Detected Influenza B (RT-PCR) Not Detected M. pneumoniae (PCR) Not Detected Parainfluenza 1 (PCR) Not Detected Parainfluenza 2 (PCR) Not Detected Parainfluenza 3 (PCR) Not Detected Parainfluenza 4 (PCR) Not Detected RSV (PCR) Not Detected Entero/Rhino (PCR) Not Detected SARS-CoV-2 RNA (RT-PCR) Not Detected 03/06/25 06:18 WBC RBC Hgb Hct MCV MCH MCHC RDW Plt Count MPV Absolute Nucleated RBC Nucleated RBC % (auto) Sodium 140 Potassium 3.7 Chloride 109 H Carbon Dioxide 27 Anion Gap 8 L BUN 11 Creatinine 0.39 L Estim Creat Clear Calc 239.7 Estimated GFR > 60 Random Glucose 99 Calcium 8.7 Nasal Screen MRSA (PCR) Nasal S. aureus Screen Nasal MRSA/S.aureus Interp Respiratory Panel Soares Adenovirus (Rapid PCR) B.pert (TEM-PCR) B.parapertussis DNA PCR C. pneumoniae DNA (PCR) Coronavirus OC43 (PCR) Coronavirus HKU1 (PCR) Coronavirus 229E (PCR) Coronavirus NL63 (PCR) Human Metapneumovir PCR Influenza A (RT-PCR) Influenza A (H1) PCR Influ A (H1/09) PCR Influenza A (H3) PCR Influenza B (RT-PCR) M. pneumoniae (PCR) Parainfluenza 1 (PCR) Parainfluenza 2 (PCR) Parainfluenza 3 (PCR) Parainfluenza 4 (PCR) RSV (PCR) Entero/Rhino (PCR) SARS-CoV-2 RNA (RT-PCR) Preliminary micro results at discharge 03/05/25 11:19 Blood Culture - Preliminary Blood - Venous No growth after 24 hours. 03/05/25 11:19 Blood Culture - Preliminary Blood - Venous No growth after 24 hours. 03/05/25 11:19 Routine Culture - Preliminary Trachea Culture in progress. Imaging Chest x-ray: Radiologist's impression: ITS Impressions Chest X-Ray 03/05/25 10:55 IMPRESSION: Atelectasis versus acute airspace disease, right middle lung lobe and lingula. Discharge Plan Discharge Anticipated Discharge Date/Time: 03/06/25 16:16 Patient Disposition: Home, Self-Care Discharge Diagnosis: viral syndrome , upper respiratory infection Referrals: Jayshree Mishra MD [Primary Care Provider, Internal Medicine] - 1 Week Discharge Medications: New azithromycin 500 mg Tablet 500 mg PO Q24H Qty: 6 0RF cefuroxime axetil 500 mg Tablet 500 mg PO Q12H Qty: 12 0RF Continued lidocaine [Salonpas (lidocaine)] 4 % adhesive patch,medicated 1 - 2 patch topical DAILY MDD 1-2 patch in 12 hours PRN (Reason: Pain) diclofenac sodium 1 % gel 2 g topical QID PRN (Reason: Pain) Zepbound 5 mg/0.5 mL pen injector 5 mg subcut WE (DME) Oxygen Home Use Kit See Rx Instructions .Route Rx Instructions: As directed (DME) nebulizers [facility] See Rx Instructions .ROUTE Rx Instructions: As directed sodium chloride 3 % solution for nebulization 4 ml inhalation BID 30 Days Qty: 240 11RF levalbuterol HCl 1.25 mg/3 mL solution for nebulization 1.25 mg inhalation BID 30 Days Qty: 180 9RF budesonide 0.5 mg/2 mL suspension for nebulization 0.5 mg inhalation BID 30 Days Qty: 120 11RF Discharge Orders: Discharge Order (Routine); Ordered 03/06/25 Ordered By: Shahnaz Hobson Diet: Advance to usual diet Activity on Discharge: As tolerated Stand Alone Forms: Patient Portal Discharge page Print Language: Greenlandic Care Plan Goals: ceftin and azithromycin for 6 days ,repeat cxr in 3-4 weeks to see resolution on ?pneumonia . follow up with pcp and pulm outpatient. Health Concerns: as above. Plan of Treatment: as above. Assessment: as above. Patient Instructions: Pneumonia (DC) Discharge Date/Time: 03/06/25 17:55
== END 2025-03-06 17:55 | disposition home or self-care (01) | DRG 194 ==
LOC: HO.ED 11:31 → HO.EDOVER 12:52 → HO.IMC 23:20
PROVIDERS: Physician Assistant Medical; Admitting Provider Nurse Practitioner Acute Care; Emergency Provider Emergency Medicine; PCP Internal Medicine; Visit Provider Internal Medicine
DX: J18.9 Pneumonia, unspecified organism (principal); J98.11 Atelectasis; G60.0 Hereditary motor and sensory neuropathy; Z93.0 Tracheostomy status; E66.812 Obesity, class 2; Z71.3 Dietary counseling and surveillance; J06.9 Acute upper respiratory infection, unspecified; Z68.38 Body mass index [BMI] 38.0-38.9, adult; Z86.14 Personal history of Methicillin resistant Staphylococcus aureus infection; Z20.822 Contact with and (suspected) exposure to COVID-19; Z79.899 Other long term (current) drug therapy
CPT/HCPCS: 36415; 71046; 80048; 80053; 83605; 85025; 85027; 85652; 86140; 87040; 87070; 87077; 87185; 87205; 87502; 87633; 87635; 87640; 87641; 99222; 99285; J0456; J0696; J1271; J1650; J7120

== ENCOUNTER → 2025-03-05 10:42 | Outpatient (BNV) | payer OTHER, SELFPAY | PROVIDERS: Emergency Provider Emergency Medicine; PCP Internal Medicine; Visit Provider Radiology Diagnostic Radiology | DX: R05.9 Cough, unspecified (principal) | CPT/HCPCS: 71046 ==

== ENCOUNTER → 2025-03-05 12:45 | Outpatient (BNV) | payer OTHER, SELFPAY | PROVIDERS: Admitting Provider Nurse Practitioner Acute Care; Emergency Provider Emergency Medicine; PCP Internal Medicine; Visit Provider Nurse Practitioner Acute Care | DX: J06.9 Acute upper respiratory infection, unspecified (principal); B34.9 Viral infection, unspecified; J38.00 Paralysis of vocal cords and larynx, unspecified; Z93.0 Tracheostomy status; G60.0 Hereditary motor and sensory neuropathy | CPT/HCPCS: 99222; 99239 ==

== ENCOUNTER → 2025-03-06 09:31 | Outpatient (BNV) | payer OTHER, SELFPAY | PROVIDERS: Admitting Provider Nurse Practitioner Acute Care; Emergency Provider Emergency Medicine; PCP Internal Medicine; Visit Provider Internal Medicine Pulmonary Disease | DX: Z93.0 Tracheostomy status (principal); J38.00 Paralysis of vocal cords and larynx, unspecified; J06.9 Acute upper respiratory infection, unspecified | CPT/HCPCS: 99222 ==

== ENCOUNTER 2025-03-19 10:28 | Outpatient (AMB) | payer OTHER, SELFPAY ==
--- NOTE | 2025-03-19 10:31 | A.OFFVIS_ITS ---
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 The patient has been noticing since 3 days ago that she is having some chest discomfort. 8/10 in severity. Asthma getting worse. Associated with shortness of breath. Also noticed that she was coughing out some blood. She denies any sick lately like symptoms. Denies any fevers or chills. She came today for an appointment. We did change how her tracheostomy since she could not put the inner cannula back in. However her heart rate went up to 130 and her pulse ox 95%. She is 10 weeks gestation. She needs to be evaluated in the ER this time. We did review her results from when she went to the ER. She did have an elevated white count but otherwise her labs were okay. Her x-ray and her V/Q scan and lower extremity Dopplers were all reasonable. She did follow-up with Ob and had ultrasound baby that seem to be perfect. In the meantime she has been concerned about the albut farzana because of the elevated heart rates in the palpitations. Now that she is with to be extremely careful. Therefore in the office we did provide her with Xopenex 1.25 mg which she tolerated significantly better. Therefore, I will send her Xopenex to the pharmacy. She failed albuterol due to the tachyarrhythmias and palpitations especially now . She has felt some palpitations getting worse as well. We did go for brief walking oximetry on room air she became short of breath and her heart rate went up to 130 and pulse ox decreased to 87 %. She was placed on 2 L nasal cannula. Her pulse ox was 98% with activity she felt a lot better on the oxygen. She needs to continue using the oxygen with activity and sleep. She will be following up with OBGYN at [facility] [phone]. She recently was admitted to [facility] for inpatient evaluation for significant hypoxia. Which she was there she had an aspiration event and became low more hypoxic. She was evaluated from a cardiac status in a pulmonary status and all the workup came back relatively negative except for diaphragmatic dysfunction likely worsened by her . The possibility of pulmonary hypertension is a reasonable thought. And because of her increased weight gain and daytime drowsiness with an elevated [place] score she will benefit from getting a sleep study. However with a tracheostomy in the tachycardia I do believe a diagnostic sleep study will be best. 05/04/2023 the patient is here for sick visit. She has been sick now for more than a week. She started developing some chest tightness and cough. The cough is moderate to severe. She has a hard time sleeping. She has been suctioning some clear thick sticky phlegm. Denies any hemoptysis or colored sputum. She also has some heaviness in the chest and some chest pain. Positive sick contacts. She did test negative for the COVID. Since she has been more than wakes sick I will not swab her for any other organisms. She did have a chest x- ray which I personally reviewed. It appears that she does have patchy opacities on the right hemithorax. This is suggestive of pneumonia. Therefore go ahead and treat her with some antibiotics and also course of Decadron. She is allergic to penicillin. If the patient is no better she will call the office for an earlier assessment. 08/06/2023 the patient is here for pulmonary follow-up visit. The patient overall has been better. Her tracheostomy is in good placement. She misplaced her Passy Aaliyah valve so she is using a deckhand clam dredge. A direct capsule hard for her to breathe. I did have a PMV available and I did provide her 1. She also should be able to get some from her [employer] company. The trach changes have been happening without any difficulties. The patient did follow-up with Neurology and will benefit from physical therapy. In addition to that she is using the oxygen for sleep. He was seen therapy has been affecting beneficial. The patient does not have any further complaints at this time. 04/20/2024 the patient is here for a pulmonary follow-up visit. Fortunately she had been sick for the last 4 days. She started with a sore throat and not developing worsening cough shortness of breath chest tightness. Moderate severity. She was started on going to the ER. Denies any fevers or chills. She did not get tested for COVID. We did do a swab in the office but was negative for RSV flu and also COVID. She did have some evidence of stridor in the office. She does have vocal cord paralysis. She does have a trach in per the most part keeping the valve off to able to breathe better. The patient did receive treatment with Xopenex x2. Also had to receive Solu-Medrol. She is going to start antibiotics and Decadron home. If the patient does not improve she will call for an earlier assessment of go to the ER. 06/14/2024 the patient is here for a sick visit. Her daughter had influenza a and B and she also developed a URI viral syndrome. Subsequently after that she started developing cough and shortness of breath. Then she started developing some hemoptysis. She did bring some pictures with bright red blood but lately he has been getting a little bit mixed with sputum and some clots. She had an x-ray which I personally reviewed. Slight haziness over the right base suggesting a bronchopneumonia. She also has evidence of bronchitis. Likely a component of tracheitis. Will go ahead and start her on Augmentin oxygen doxycycline to cover her for community-acquired pneumonia postviral. And at this time the patient will also get blood work. She did have a D-dimer that was negative so therefore we have to worry about blood clots. She does take estrogen hormonal replacement therapy for control. I advised her to come off it. The patient will continue the antibiotics. If she is no better she will call. If the bleeding gets worse we may have to do a bronchoscopy just to clear all the clots and to assess the area of bleeding. The CT scan of the chest may be also warranted but will see how she responds to the antibiotics. 08/22/2024 the patient is here for pulmonary follow-up visit. She does feel like she is getting more chest congestion. Difficult to clear his secretions. Coughing more regularly. She did have a Acapella valve that she is using the past with minimal improvement. It may be an old 1 and will go ahead and replace it. Although I do believe that percussion vest will be more effective treating her neuromuscular disease. Will go ahead and request 1. Unfortunately she did have a injury to her shoulder and she is having that evaluated. Some of the pain does radiate to the chest. Explained to her that that the percussion vest may cause some discomfort because of that we have to see. In the meantime the patient did have a chest x-ray back in June which we personally reviewed without any acute disease she has a chronic tracheostomy. Although she does feel some discomfort in the cough is worse so therefore will request a CT scan to see if there is any significant atelectasis mucus plugging or any other pathology. Will try to get a sputum as well. If were not able to get a sputum independent on the CAT scan we can also consider bronchoscopy she does change her tracheostomy regularly and she is tolerating her PMV. She did follow-up in [place] for her neuromuscular disease which is very happy about. 10/19/2024 the patient is here for hospital follow-up visit. She had an acute respiratory distress event at home and she did call the ambulance she was shaking to [facility]. During the ambulance ride she was provided suction with some mucus plugs. She was also given IV steroids and neb treatments. She was stabilized and was transferred to the hospital where she was admitted briefly. X-ray demonstrated a slight right-sided opacity suggesting pneumonia. She was placed on doxycycline and also a cephalosporin and the patient has been feeling little better. Although she still congested and feels chest tightness. She is having hard time wearing the Passy Ruby valve. She does have wheezing on examination. Denies any obvious aspiration. The patient will go ahead and complete the antibiotics. Will give her some Solu-Medrol and then she can start Decadron taper. The patient also may benefit from a bronchoscopy. Once she is does feel better she can always call and we can schedule 1 to assess her airways and provide mucus clearance them therapeutic cleaning of the airways. The patient also will continue her respiratory therapy with the oxygen at nighttime. She does not need an HME and she also needs to use her inner cannulas to minimize obstructions of the tracheostomy. The patient will continue to follow closely. Will talk about after the bronchoscopy. 12/14/2024 the patient is here for pulmonary follow-up visit. She is slowly improving. Overall doing better although the heart rate still elevated in the oxygen still drops. She is still needs to use the oxygen. She has a hard time with the portability outside of the home because of her muscular dystrophy. She benefit from a portable oxygen concentrator I will request 1 from her current DME company, [employer]. Also did call her DME company regarding her HME she needs to get for her tracheostomy 1 that has an oxygen poor. In addition to that the patient has been using her levo albuterol via nebulizer with good effect. Will go ahead and add budesonide to it to see if we can provide some relief as she has completed all the antibiotics and Decadron. The patient was evaluated prior at [facility] I believe ENT but she no longer goes to [place]. She needs a local ENT doctor specially with the fact that she is having hard time with his speech as she may have worsening vocal cord paralysis that is also affecting her breathing. My suspicion also this she has micro aspirating resulting in increasing recurrent infections. She did have a modified barium swallow in the hospital that did not show any difficulties with her swallow but I suspect that because of the tracheostomy her muscular dystrophy involvement of the larynx it is likely that she has micro aspirating. She has a strong immune system we did check her connective tissue disease workup which was fairly negative except for slight elevation in the TANIA but not enough to warrant any further workup right now. 01/18/2025 The patient is here for a pilmonary follow up visit. She is feeling better. Still has dyspnea on exertion and the oxygen has been helpful. However, she is waiting for a POC to have better portability outside of the home. She continue with the respiratory therapy and CPT with the percussion vest. Tolerating the PMV, but still waiting for the HME with oxygen port, We are reaching out again to the DME. Still waiting for ENT referral, she will look into going back to [place]. 03/19/2025 the patient is here for pulmonary follow-up visit. The patient janis martinez has been doing well. She had been evaluated and admitted to the hospital a couple weeks ago because she was having some tenderness about the trach site. The patient did have a swab done because it did have pus and does swab was positive for strep pneumo and Haemophilus influenza. She was given IV antibiotics for 24 hours and sent home on oral antibiotics. The site feels very normal right now very comfortable. She should be changing her trach next week so she will have a better sense. But for now she is doing better. She is using her portable oxygen concentrator has been affecting beneficial when she is starting to exercise more regularly. I did reach out to the [employer] company, [employer], to see if they can provide her a an HME with a oxygen port. And hopefully we can get that for her. Otherwise she continues with the current respiratory therapy and the patient is without any other complaints. We did again looked at her last chest x-ray demonstrating some interval improvement in the left sided opacity. So will continue to work on deep breathing and CPT. 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 Asthma Hemoptysis Bronchopneumonia Dysphagia GERD (gastroesophageal reflux disease) Hypoxia Tachycardia Chronic respiratory failure Chest pain Pneumonia delivery due to maternal disorder, delivered, curr hospitaliz Tracheostomy in place Surgical History H/O tracheostomy H/O colonoscopy History of laryngoscopy History of bronchoscopy Previous section Social History Household Members: Spouse and Children Housing: House Are you a primary progressive care unit registered nurse to a significant other at home: No Do you presently have visiting nurse or other home services: No Alcohol intake: never Comment: lower extremity braces, bilateral Patient Tobacco Use Status: Never used Tobacco Second Hand Smoke Exposure: No Advance Directives Date on File: 11/18/24 service: No Current occupational status: disabled Current occupation: right hand dominant Review of Systems Const Denies night sweats, Reports weakness and Reports weight loss ENT Denies change in voice, Denies lip swelling, Denies mouth pain, Denies nasal congestion, Denies nasal discharge and Denies tongue swelling Card Denies chest pain, Denies palpitations, Denies dyspnea and Reports dyspnea on exertion Resp Reports chest congestion, Reports cough, Denies pain on inspiration, Denies pain with cough, Denies dyspnea, Reports dyspnea on exertion and Reports wheezing GI Denies abdominal pain Musc Reports as per HPI Neuro Reports as per HPI, Denies Neuro-related abnormal movements and Reports weakness Psych Denies no additional complaints Endo Denies palpitations Ryan/Lymph Denies easy bleeding and Denies lymphadenopathy Aller/Immun Denies lip swelling, Denies tongue swelling and Reports wheezing Physical Exam Vital Signs: Last Vital Signs Pulse 96 03/19/25 10:32 BP 100/70 03/19/25 10:32 Pulse Ox 97 03/19/25 10:32 Oxygen Delivery Method Room Air 03/19/25 10:32 BMI result Body Mass Index 39.0 Const General: alert and tired appearing HEENT Head: Yes normocephalic Neck Neck: Yes normal visual inspection, Yes full ROM, Yes no lymphadenopathy and Yes tracheostomy present Chest Chest palpation & inspection: normal inspection of the chest Resp Effort & Inspection: normal respiratory effort and no stridor Auscultation: no rhonchi, no wheezes and diminished lung sounds Cardio Rate: regular rate Rhythm: regular rhythm Heart sounds: S1 normal heart sound present and S2 normal heart sound present GI Palpation (GI): Soft to palpation and nontender Auscultation: normal bowel sounds Skin General skin exam: other (ecchymosis) Assessment & Plan Assessment & Plan (1) 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 Category: Medical (2) Asthma: Code(s): J45.909 - Unspecified asthma, uncomplicated Category: Medical Qualifiers: Asthma complication type: with acute exacerbation Asthma persistence: persistent Asthma severity: moderate Qualified Code(s): J45.41 - Moderate persistent asthma with (acute) exacerbation (3) Hypoxia: Code(s): R09.02 - Hypoxemia Category: Medical (4) Tracheostomy in place: Code(s): Z93.0 - Tracheostomy status Category: Medical (5) GERD (gastroesophageal reflux disease): Code(s): K21.9 - Gastro-esophageal reflux disease without esophagitis Category: Medical Qualifiers: Esophagitis presence: without esophagitis Qualified Code(s): K21.9 - Gastro-esophageal reflux disease without esophagitis (6) Vocal cord paralysis: Code(s): J38.00 - Paralysis of vocal cords and larynx, unspecified Category: Medical (7) Tracheostomy dependence: Code(s): Z93.0 - Tracheostomy status Category: Medical Plan continue CPT with acapella valve, will request percussion vest as she is failing acapella valve Trach [id number] [place] as needed Continue oxygen with sleep. Needs HME with oxygen port, will reuest from DME. Needs POC 2l/pulse with activity for better portability while outside of the home PPI for reflux disease should also sleep elevated Xopenex BID continue BUdesonide BID daily Hypertonic saline for CPT while on the vest ENT referral F/U 3-4 months Orders: Orders Complete Blood Count Auto Diff Today J06.9 - Acute upper respiratory infection, unspecified, Z93.0 - Tracheostomy status S pneumoniae IgG Ab 23 Today J06.9 - Acute upper respiratory infection, unspecified, Z93.0 - Tracheostomy status Medications: New doxycycline monohydrate 100 mg PO DAILY 30 tabs 2RF 30 days Coding Level of Care Code Est Pt Level 4 (60903) Complex EM visit Add On G2211 Diagnoses Charcot Shantell Tooth muscular atrophy G60.0 Moderate persistent asthma with acute exacerbation J45.41 Asthma complication type: with acute exacerbation Asthma persistence: persistent Asthma severity: moderate Hypoxia R09.[address] Z93.0 Gastroesophageal reflux disease without esophagitis K21.9 Esophagitis presence: without esophagitis Vocal cord paralysis J38.00 Tracheostomy dependence Z93.0 Time Spent (min) 17
[2025-03-19 10:32] VITALS: BP 100/70; PULSE 96; O2SAT 97; BMI 39.0
--- OUTSIDE RECORDS SUMMARY | 2025-03-19 21:37 | XMS_ITS | Data Portability ---
Author Organization [place] - [facility], [facility] Address [address] [place] [address] Care Team Providers Care Accessioner Name Role Phone KAE DE LOS SANTOS Primary Care Provider [phone] Assessment No assessment recorded. Plan of Treatment Reminders Order Date Submit Date Provider Last Modified By Organization Details Last Modified Time Details Appointments None recorded. Lab None recorded. Referral physical therapist referral 2023 024 [email or web address] [email or web address] [facility] [place], [facility] [address], [place], [address], 4 10:24:03 Procedures nerve conduction study/EMG, upper extremity (PROC) - EMG NLS RUE fany Niño spinal accessory nerve, long thoracic for scapular winging, axillary nerve for deltoid weakness 2023 024 [facility] Neurology Scheduling, [address] [place], [address], 4 05:49:51 Surgeries None recorded. Imaging XR, shoulder, 2 or more view - 311 recheck right shoulder- New injury 2023 024 [facility], [address], [place], [address], 4 11:14:08 MRI, shoulder, w/o contrast - mri right shoulder evaluate for rct 2023 024 [facility] ([facility]), [address], [place], [address], 4 11:14:08 Medication Orders None recorded. Patient TargetsNo targets recorded. Patient InstructionsNo instructions recorded. Reason for Referral Physical Therapist Referral for Pain of right shoulder joint Referring Physician: Lluvia Pittman, Orthopedic Surgery, [id number] Encounter Date: 07/21/2023 Results Created Date Observation Date Name Description Value Unit Range Abnormal Flag Note LastModifiedBy Organization Detail LastModifiedTime 11/02/19 24 11/02/2023 arthr ogram fluor oscop ic john nce needl e place ment CPT 82163 / right [facility]- [facility] Access ion Number : [id number] Ana giles Name: Robb Salvador Medica l Record Number : [id number] Date of : 1990 Date of Exam: 2023 Referr ing Physic rehan: Everton Pittman NEOS [address] [facility], [place] [address] Exam: RF Arthro gram Fluoro scopic Guidan ce Needle Placem ent CPT 35123 - Right Room Descri ption: Lapoint Siem CS Fluoro FLUORO SCOPIC ALLY GUIDED [...] onical ly Signed By: Georgina Booker MD [facility] ([facility]) [address] [place], [address], 11/08/2023 08:39:15 11/02/19 24 11/02/2023 rf, arthr rio mario raiza inj right CPT 39211 [facility] MRI- [facility] Access ion Number : [id number] Ana giles Name: Robb Salvador Record Number : [id number] Date of : 1990 Date of Exam: 2023 Referr ing Physic rehan: Everton PittmanS [address] [facility], [place] [address] Exam: RF Arthro gram Should er Inj CPT 08644 - Right Room Descri ption: Lapoint Siem CS Fluoro FLUORO SCOPIC ALLY GUIDED [...] onical ly Signed By: Georgina Booker MD [facility] ([facility]) [address] [place], [address], 11/08/2023 08:39:24 11/02/19 24 11/02/2023 MRI, fabiano raiza, w/ contr ast [facility] [place] Access ion Number : [id number] Patiloco t Name: Robb Salvador Medica l Record Number : [id number] Date of : 1990 Date of Exam: 2023 Referr [facility] Physic rehan: Everton Pittman NEOS [address] [facility], [place] [address] Exam: MR Should er (C+) CPT 95765 (Post Arthro gram) - Right Room Descri ption: Lapoint Siem Verio 3.0T MR ARTHRO GRAM RIGHT [...] onical ly Signed By: Georgina Booker MD [facility] ([facility]) [address] [facility], [place], [address], 11/08/2023 08:39:33 02/02/20 24 01/25/2024 MRI, cervi js spine , w/o contr ast [facility] MRI- [facility] Access ion Number : [id number] Ana t Name: Robb Salvador CornerBluea l Record Number : [id number] Date of : 1990 Date of Exam: 2023 Referr ing Physic rehan: Iza Mendoza NEOS [address] [place] [address] Exam: MR Cervic al Spine (C-) CPT 07879 Room Descri ption: Lapoint Siem Espr 1.5 HISTOR Y: Right arm [...] height and signal . 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 LILO [facility] ([facility] [address], [place], [address], 05/25/2024 16:34:15 Result Notes Documentation Provider Name and Address Organization Details Recorded Time Mri, Shoulder, W/ Contrast : [facility] Accession Number: [id number] Patient Name: Jessica Salvador Date of : 1990 Date of Exam: 11-02-2023 Referring Physician: Lluvia Pittman [address] [place], [place] [address] Exam: MR Shoulder (C+) CPT 58030 (Post Arthrogram) - Right Room Description: [facility] Verio 3.0T MR ARTHROGRAM RIGHT SHOULDER [...] Pittman PA-C [address], [place], [address], [facility] 11/08/2023 08:39:33 Mri, Cervical Spine, W/o Contrast : [facility] Accession Number: [id number] Patient Name: Jessica Salvador Date of : 1990 Date of Exam: 01-25-2024 Referring Physician: Iza Mendoza [address] [place] [address] Exam: MR Cervical Spine (C-) CPT 78698 Room Description: [facility] Espr 1.5 HISTORY: Right arm pain and paresthesias. TECHNIQUE: Multiplanar multisequence MRI of the cervical spine without contrast. COMPARISON: No prior studies are available for comparison at [facility]. FINDINGS: Multiple images [...] Electronically Signed By: Chele Mendoza MD [address] [place] [address], [address], [facility] 02/04/2024 16:39:38 Problems Name Problem SNOMED Code Status Onset Date Resolution Date Notes Provider Name and Address Organization Details Recorded Time Pain of right shoulder joint 150581862717151 00 Active 2023 RANDAL goodwin [facility] 12:58:27 Problem Notes None recorded. Procedures Surgical History Date Name Laterality Status Provider Name and Address Organization Details Recorded Time 4 Sports Shoulder 4&1 completed Lluvia Pittman PA-C [address] [facility], [place], [address], [facility] 11/29/2023 09:34:38 4 Sports Shoulder 4&1 completed Lluvia Pittman PA-C [address], [place], [address], [facility] 09/07/2023 10:34:00 4 Sports Shoulder 4&1 completed Lluvia Pittman PA-C [address] [facility] [address], [place], [address], [facility] 07/23/2023 07:57:09 Imaging Results None recorded. Procedure Notes None recorded. Medical Equipment None Reported. Allergies Allergen ID Allergen Name Allergen Category Reaction Reaction Severity Criticality Documentation Date Start Date Code Code System Note Provider Name and Address Organization Details Recorded Time 579005 prednison e medicatio n Not available Not available Not available 10/26/20232023 8640 RxNorm Not Available [facility] 09:08:30 144196 prednison e medicatio n Not available Not available Not available 12/14/2023 8640 RxNorm ONESIMO goodwin [facility] 08:57:33 Medications Name Sig Start Date Stop [...] Updated DateTime 06/26/2024 162.56 cm 39.5 kg/m2 809462.25 g Iza Mendoza MD [facility] [address], [place], [address], [facility] 06/26/2024 16:00:31 Date Recorded Body height Body mass index (BMI) Body weight Provider Name and Address Organization Details Last Updated DateTime 11/29/2023 162.56 cm 39.5 kg/m2 327320.25 g CORNEL CASTAÑEDA [facility] 11/29/2023 09:19:30 Date Recorded Body height Body mass index (BMI) Body weight Provider Name and Address Organization Details Last Updated DateTime 12/24/2023 162.56 cm 39.5 kg/m2 823107.25 g ONESIMO CORTES [facility] 12/24/2023 10:12:46 Social History None recorded. Functional Status None recorded. Mental Status None recorded. Family History Nothing Reported. Medical History Condition Response Coronary Artery Disease N Anxiety/Depression N Emphysema N COPD N Pacemaker N Vascular Disease N Heart Trouble N Gastrointestinal Disease N Autoimmune disease N Orthotics N Arthritis N Blood Clot N Acid Reflux (GERD) N Cancer N Stroke N Circulation Problems N Rheumatoid Arthritis N Arrhythmia N Headaches N Fibromyalgia N Allergies/Hayfever N Breathing or lung disorders Y Nerve Disorders Y Thyroid Problems N Kidney/Bladder Problems N Anemia N Heart Attack ([place]) N Cholesterol N Diabetes N Bleeding Disorder N Seizures/Epilepsy N AIDS/HIV N Congestive Heart Failure (CHF) N Asthma N Peripheral Vascular Disease N Sleep Apnea Y Hepatitis N Heart Disease N Pulmonary Embolism N Hypertension N Osteoporosis N Gynecological HistoryNo gynecological history recorded. Obstetrics History GPAL:G 0 P 0 0 0 0 Past Encounters Encounter ID Performer Location Encounter Start Date Encounter Closed Date Diagnosis/Indication Diagnosis SNOMED-CT Code Diagnosis ICD10 Code Diagnosis IMO Codes Diagnosis Note [id number] Lluvia Pittman PA-C [address] [place] [address] 07/21/2023 15:35:58 08/18/2023 10:24:03 Pain of right shoulder joint 9300953580 6546496 M25.275 [id number] Lluvia Pittman PA-C [address] [place] [address] 09/07/2023 09:09:32 09/29/2023 14:49:09 Pain of right shoulder joint 0533037417 2258692 M25.884 [id number] Lluvia Pittman PA-C [place] [address] [place] [address] 11/29/2023 09:09:50 12/22/2023 12:38:23 Calcific tendinitis of right shoulder 3090500299 09119 M75.31 [id number] Iza Mendoza MD [address] [place] [address] 12/24/2023 10:02:22 01/18/2024 15:49:08 Pain of right shoulder joint 3305491745 0762740 M25.511 Cervical radiculopathy 20736928 M54.12 [id number] Iza Mendoza MD [facility] - [address] [place] [address] 06/26/2024 15:56:10 07/10/2024 19:00:07 Pain of right shoulder joint 4159752842 9984610 M25.511 [id number] Health Concerns Section Related Observation LastModified by Organization Detai ls LastModified Time None Recorded Concern Status LastModified by Organization Details LastModified Time None Recorded Advance Directives Directive None Recorded Payers Insurance Date Sequence Insurance Name Policy Number Policy Lynn Covered Member ID Lynn Member ID Guarantor Name 07/10/2024 1 [facility] - DOS ON OR AFTER 2022 - ONE CARE (MEDICARE REPLACEMENT/ADV ANTAGE - HMO) Jessica Salvador [id number] Jessica Salvador Notes Date Note Type Note [...] right shoulder. She has a history of Cziogcq-Zzrav-Xkhnf disease. Denies numbness or tingling Past family, [...] up as needed. Continue physical therapy QUESTIONS [facility] speech recognition tubular splitting machine tender software was used to create portions of this document. An attempt at proofreading has been made to minimize errors. Please call for corrections. Lluvia Pittman PA-C [address] [place] [address] [address] [facility], [place], [address], [facility] 07/23/2023 07:57:51 09/07/2023 text/html [...] right shoulder. She has a history of Berpxxf-Cqkku-Macrm disease. Denies numbness or tingling Past family, [...] Xrays ordered obtained and reviewed today at [facility] including 4 views of the right [...] for MRI review. Continue physical therapy QUESTIONS [facility] speech recognition tubular splitting machine tender software was used to create portions of this document. An attempt at proofreading has been made to minimize errors. Please call for corrections. Lluvia Pittman PA-C [address] [place] [address], [place], [address], [facility] 09/07/2023 11:14:30 11/29/2023 text/html [...] right shoulder. She has a history of Jekfplx-Ekmqr-Tstvc disease. Denies numbness or tingling Past family, [...] Appointment is made for her today. [facility] speech recognition tubular splitting machine tender software was used to create portions of this document. An attempt at proofreading has been made to minimize errors. Please call for corrections. Lluvia Pittman PA-C [address] [facility], [place], [address], 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 These demonstrate increased space within the glenohumeral joint and even a slight inferior pseudosubluxation, particularly evident on AP internal rotation view, which may reflect positioning versus effusion. AC joint space well-preserved. Humeral head centered on axillary view. No dystrophic calcium deposition. Type II acromion. MRI arthrogram of the right shoulder performed at [facility] 11-23 independently reviewed by me on Ortho [...] rotator cuff on T1 sagittal's. 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 [employer] speech recognition tubular splitting machine tender software was used to create portions of this document. An attempt at proofreading has been made to minimize errors. Please call for corrections. Iza Mendoza MD [address] [place], [place] [address], [place], [address], [facility] 01/13/2024 15:24:41 06/26/2024 text/html Issue: Right shoulder scapular winging, Jowocxb-Lorki-Geifq syndrome Interval History: This is a 33-year-old oizii-kfsv-giknodxr woman with Gbtzlgb-Wahfo-Oowsf syndrome who presents to clinic today for [...] the Right shoulder ordered and obtained at [facility] 09/07/2023 were reviewed during the visit. These demonstrate increased space within the glenohumeral joint and even a slight inferior pseudosubluxation, particularly evident on AP internal rotation view, which may reflect positioning versus effusion. AC joint space well-preserved. Humeral head centered on axillary view. No dystrophic calcium deposition. Type II acromion. MRI arthrogram of the right shoulder performed at [facility] 11/02/2023 independently reviewed by me on Ortho [...] on T1 sagittal's. C-spine MRI performed at [facility] 01/25/2024, report independently reviewed by me, demonstrates small disc herniations are present at multiple levels without significant central canal narrowing. No cord compression or cord signal abnormality. No significant foraminal narrowing or exitingnerve root impingement. 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 No evidence for acute denervation of trapezius, deltoid, or serratus anterior. 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 Isidro [place] [facility] to see if she is a candidate for a scapulopexy or scapulothoracic fusion. [facility] speech recognition tubular splitting machine tender software was used to create portions of this document. An attempt at proofreading has been made to minimize errors. Please call for corrections. Iza Mendoza MD [address] [facility] [address], [place], [address], [facility] 06/26/2024 16:56:46 OBGyn Episode No OBEpisode recorded.
--- OUTSIDE RECORDS SUMMARY | 2025-03-19 21:37 | XMS_ITS | Data Portability ---
Author Organization bead Button [facility], [facility] Address [address] [place] [address] Care Team Providers Care Behavior Support Specialist Name Role Phone HIM CCA OTHER Assessment Encounter Date Assessment Date Assessment LastModified by Organization Details LastModified Time 11/18/2024 11/18/2024 I provided real -time medical direction via phone for this encounter, and was available for additional phone based assistance as needed. I have reviewed and agree with the Assessment and Plan as documented by the Clinical Biochemist. We discussed the diagnostic uncertainty of home visits and the risk associated with this. In this case the patient and I felt given significant pain with inspiration, hx of Tracheitis and new hypoxia when on RA she should be seen in ED. 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 Report called to [facility] ED where patient receives most of her care, staff is familiar with patient and expecting arrival. Patient verbalized understanding of plan and is in agreement. [email or web address] Not available 11/18/2024 12:38:10 Plan of Treatment [...] Name and Address Organization Details Recorded Time 53186 prednison e medicatio n Not available Not [...] ICD10 Code Diagnosis IMO Codes Diagnosis Note [id number] WALE HUBBARD NP, [facility] [address] [place] [address] 11/18/2024 09:30:37 11/18/2024 17:14:29 Hypoxia [id number] R09.02 83130 Health Concerns Section Related Observation LastModified by Organization Detai ls LastModified Time None Recorded Concern Status LastModified by Organization Details LastModified Time None Recorded Advance Directives Directive None Recorded Payers Insurance Date Sequence Insurance Name Policy Number Policy Lynn Covered Member ID Lynn Member ID Guarantor Name 12/05/2024 1 [facility] - DOS ON OR AFTER 2022 - DUAL ELIGIBLE - NURSING HOME OPTIONS AND ONE CARE (MEDICARE REPLACEMENT/ADV ANTAGE - HMO) Jessica Salvador [id number] Jessica Salvador Notes Date Note Type Note [...] any mucus. She is allergic to prednisone [facility]-dougie- tooth 2 I provided information on the mobile health provider response time and advised the patient and/or caregiver to monitor reported signs and symptoms. I discussed the warning signs of when to seek emergency care. .................. .................. .................. .................. .................. .................. .................. ............... Clinical Biochemist Note From Higinio Jeronimo: Arrived to find [...] yielded no results. 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 Patient VS as noted. History of infection with trachea. Trachea site looks unremarkable. [facility] called advised to go to hospital. Patient agreeable. 911 called. Care transferred to [facility] transporting to [facility]. .................. .................. .................. .................. .................. .................. .................. ............... [facility] Consulted: Wale Hubbard .................. .................. .................. .................. .................. .................. .................. ............... Disposition: Fulfilled WALE HUBBARD NP, [address] [place] [address],[address], [place], [address], [employer] 11/18/2024 12:38:17 OBGyn Episode No OBEpisode recorded.
== END 2025-03-19 10:53 | disposition home or self-care (01) ==
LOC: HO.HPS 10:29
PROVIDERS: PCP Internal Medicine Critical Care Medicine; Visit Provider Hospitalist
DX: G60.0 Hereditary motor and sensory neuropathy (principal); J45.41 Moderate persistent asthma with (acute) exacerbation; R09.02 Hypoxemia; Z93.0 Tracheostomy status; K21.9 Gastro-esophageal reflux disease without esophagitis; J38.00 Paralysis of vocal cords and larynx, unspecified
CPT/HCPCS: 99214; G2211

== ENCOUNTER 2025-03-19 10:28 | Outpatient (REF) | payer OTHER, SELFPAY ==
[2025-03-19 11:07] LABS: MANUAL DIFF FLAG NO
[2025-03-19 12:18] LABS: Hematocrit 35.9 % (37.0-47.0); Hemoglobin 11.5 g/dl (12.0-16.0); Imm Gran Abs Auto 0.01 X10*3/uL (0.00-0.03); Imm Gran Pct Auto 0.2 % (0.0-0.4); Lymphocytes Absolute Auto 1.6 X10*3/uL (1.2-4.9); Mean Corpuscular HGB Conc 32.0 g/dl (31.0-35.0); Mean Corpuscular Hemoglobin 27.9 pg (27.0-33.0); Mean Corpuscular Volume 87.1 fL (80.0-98.0); NRBC Abs Auto 0.000 X10*3/uL (0.0-0.012); NRBC Pct Auto 0.0 /100WBC (0.0-0.2); Platelet Count 213 X10*3/uL (160-400); Red Blood Count 4.12 X10*6/uL (4.20-5.50); White Blood Count 5.6 X10*3/uL (4.8-10.8)
== END 2025-03-19 10:29 | disposition home or self-care (01) ==
LOC: HO.LAB 10:28
PROVIDERS: PCP Internal Medicine Critical Care Medicine; Visit Provider Hospitalist
DX: J45.41 Moderate persistent asthma with (acute) exacerbation (principal); G60.0 Hereditary motor and sensory neuropathy; R09.02 Hypoxemia; K21.9 Gastro-esophageal reflux disease without esophagitis; J38.00 Paralysis of vocal cords and larynx, unspecified; J06.9 Acute upper respiratory infection, unspecified; Z93.0 Tracheostomy status; Z79.51 Long term (current) use of inhaled steroids
CPT/HCPCS: 36415; 85025; 86317; 99212